=== PATIENT | male | born 1960 | race Caucasian/White ===

== ENCOUNTER → 2017-06-28 14:12 | Outpatient (CLI) | payer OTHER, SELFPAY ==
--- NOTE | 2017-06-28 14:20 | RAD_ITS ---
STUDY: X-RAY - PELVIS REASON FOR EXAM: Male, 57 years old. Psoriatic arthritis. TECHNIQUE: One view of the pelvis was obtained. COMPARISON: None. FINDINGS: There is a non-specific bowel gas pattern. Normal visualized soft tissue structures. Normal bilateral iliac wings, sacroiliac joints and visualized sacrum. Normal visualized bilateral superior and inferior pubic rami. Normal pubic symphysis. Normal ischial tuberosities. Normal visualized right femoral head. Normal right acetabulum. Normal right hip joint. Normal visualized left femoral head. Normal left acetabulum. Normal left hip joint. RAD/Pelvis 1 or 2 Views IMPRESSION: Normal x-ray examination of the pelvis. Electronically Signed: Everett Garnica MD at 10:24 EDT , Service support ,
[2017-06-28 15:48] LABS: Absolute Lymphocyte Count 1.46 X10^3/ul (0.83-4.51); Absolute Neutrophil Count 2.7 X10^3/uL (2.0-7.7); Basophil# 0.01 X10^3/uL; Basophil% 0.2 % (0-1); Eosinophil# 0.06 X10^3/uL; Eosinophils% 1.2 % (0-5); Hematocrit 47.4 % (40-54); Hemoglobin 15.9 g/dl (13.0-16.5); Lymphocyte # 1.46 X10^3/ul (4.0); Lymphocyte % 29.9 % (19-41); Mean Corp Hgb Conc 33.5 g/gl (32-36); Mean Corpuscular Hgb 32.5 pg (27.0-32.0); Mean Corpuscular Volume 96.9 fL (80-94); Mean Platelet Vol. 11.2 fl (6.2-12.0); Monocyte# 0.62 X10^3/uL; Monocyte% 12.7 % (0-10); Neutrophil # 2.73 X10^3/uL (2.7-7.7); Platelet Count 171 K/mm3 (150-450); RBC Distribution Width CV 12.9 % (11.6-14.6); RBC Distribution Width SD 45.5 fl (35.1-43.9); Red Blood Count 4.89 M/mm3 (4.6-6.2); White Blood Count 4.9 K/mm3 (4.4-11.0)
[2017-06-28 15:58] LABS: POSITIVE COUNT NO; POSITIVE DIFFERENTIAL NO; POSITIVE MORPHOLOGY NO
[2017-06-28 16:02] LABS: ALB/GLOB Ratio 1.1 RATIO (0.9-2.4); AST(SGOT) 25 U/L (15-37); Alanine Aminotransfer ALT/SGPT 30 U/L (16-61); Albumin, Serum 4.1 g/dL (3.2-5.0); Alkaline Phosphatase 74 U/L (45-117); Anion Gap 7 (5-15); BUN 23 mg/dL (7-18); CRP 9.05 mg/L (0.0-3.0); Calcium,Total 8.6 mg/dL (8.5-10.1); Chloride 101 mmol/L (98-107); Creatinine, Serum 0.92 mg/dL (0.70-1.30); EST Glomerular Filtration Rate 90 mL/min (>60); Est Glom Filt Rate - Afr Amer 109 mL/min (>60); Globulin 3.7 g/dL (2.2-4.2); Glucose 86 mg/dL (74-106); Potassium 4.5 mmol/L (3.5-5.1); Protein, Total 7.8 g/dL (6.4-8.2); Rheumatoid Factor < 10.0 IU/mL (<15); Sodium Level 135 mmol/L (136-145)
[2017-06-28 16:18] LABS: Erythrocyte Sedimentation Rate 11 mm/hr (0-20)
[2017-06-30 15:01] LABS: ANTINUCLEAR ANTIBODIES DIRECT Negative (Negative)
[2017-07-06 11:29] LABS: CCP IgG Antibodies 9 units (0-19); HEPATITIS B SURFACE AG Negative (Negative); HLA B27 Negative (.); Hep B Surface Antibodies Non Reactive (.); Hep C Antibodies <0.1 s/co ratio (0.0-0.9)
== END ==
PROVIDERS: Family Provider Family Medicine; PCP Family Medicine; Visit Provider Internal Medicine Rheumatology
DX: L40.59 Other psoriatic arthropathy (principal); L40.9 Psoriasis, unspecified; M51.37 Other intervertebral disc degeneration, lumbosacral region; M47.897 Other spondylosis, lumbosacral region
CPT/HCPCS: 36415; 72170; 80053; 81374; 85025; 85652; 86038; 86140; 86200; 86431; 86706; 86803; 87340

== ENCOUNTER → 2017-08-26 07:04 | Outpatient (CLI) | payer OTHER, SELFPAY ==
[2017-08-26 10:30] LABS: Absolute Lymphocyte Count 2.06 X10^3/ul (0.83-4.51); Absolute Neutrophil Count 5.2 X10^3/uL (2.0-7.7); Basophil# 0.02 X10^3/uL; Basophil% 0.2 % (0-1); Eosinophil# 0.17 X10^3/uL; Eosinophils% 2.1 % (0-5); Hematocrit 44.3 % (40-54); Hemoglobin 14.8 g/dl (13.0-16.5); Lymphocyte # 2.06 X10^3/ul (4.0); Lymphocyte % 25.7 % (19-41); Mean Corp Hgb Conc 33.4 g/gl (32-36); Mean Corpuscular Hgb 32.5 pg (27.0-32.0); Mean Corpuscular Volume 97.1 fL (80-94); Mean Platelet Vol. 10.2 fl (6.2-12.0); Monocyte# 0.59 X10^3/uL; Monocyte% 7.4 % (0-10); Neutrophil # 5.17 X10^3/uL (2.7-7.7); Neutrophil % 64.5 % (47-70); Platelet Count 272 K/mm3 (150-450); RBC Distribution Width CV 13.5 % (11.6-14.6); RBC Distribution Width SD 47.3 fl (35.1-43.9); Red Blood Count 4.56 M/mm3 (4.6-6.2)
[2017-08-26 10:54] LABS: POSITIVE COUNT NO; POSITIVE DIFFERENTIAL NO; POSITIVE MORPHOLOGY NO
[2017-08-26 11:06] LABS: ALB/GLOB Ratio 1.1 RATIO (0.9-2.4); AST(SGOT) 16 U/L (15-37); Alanine Aminotransfer ALT/SGPT 26 U/L (16-61); Albumin, Serum 3.8 g/dL (3.2-5.0); Alkaline Phosphatase 67 U/L (45-117); Anion Gap 6 (5-15); BUN 22 mg/dL (7-18); BUN/Creat Ratio 27.4 RATIO (10-20); Calcium,Total 8.4 mg/dL (8.5-10.1); Chloride 108 mmol/L (98-107); EST Glomerular Filtration Rate 105 mL/min (>60); Est Glom Filt Rate - Afr Amer 127 mL/min (>60); Globulin 3.4 g/dL (2.2-4.2); Glucose 81 mg/dL (74-106); Potassium 4.1 mmol/L (3.5-5.1); Protein, Total 7.2 g/dL (6.4-8.2); Sodium Level 141 mmol/L (136-145)
== END ==
PROVIDERS: Family Provider Family Medicine; PCP Family Medicine; Visit Provider Internal Medicine Rheumatology
DX: L40.59 Other psoriatic arthropathy (principal); L40.9 Psoriasis, unspecified; M51.37 Other intervertebral disc degeneration, lumbosacral region; M47.897 Other spondylosis, lumbosacral region; Z79.899 Other long term (current) drug therapy
CPT/HCPCS: 36415; 80053; 85025

== ENCOUNTER → 2017-11-25 06:57 | Outpatient (CLI) | payer OTHER, SELFPAY ==
[2017-11-25 10:39] LABS: Absolute Lymphocyte Count 2.01 X10^3/ul (0.83-4.51); Absolute Neutrophil Count 4.5 X10^3/uL (2.0-7.7); Basophil# 0.02 X10^3/uL; Basophil% 0.3 % (0-1); Eosinophil# 0.17 X10^3/uL; Eosinophils% 2.3 % (0-5); Hematocrit 44.4 % (40-54); Hemoglobin 14.8 g/dl (13.0-16.5); Lymphocyte # 2.01 X10^3/ul (4.0); Lymphocyte % 27.5 % (19-41); Mean Corp Hgb Conc 33.3 g/gl (32-36); Mean Corpuscular Volume 99.1 fL (80-94); Mean Platelet Vol. 10.8 fl (6.2-12.0); Monocyte# 0.57 X10^3/uL; Monocyte% 7.8 % (0-10); Neutrophil # 4.53 X10^3/uL (2.7-7.7); Platelet Count 257 K/mm3 (150-450); RBC Distribution Width CV 13.1 % (11.6-14.6); RBC Distribution Width SD 47.4 fl (35.1-43.9); Red Blood Count 4.48 M/mm3 (4.6-6.2); White Blood Count 7.3 K/mm3 (4.4-11.0)
[2017-11-25 10:47] LABS: POSITIVE COUNT NO; POSITIVE DIFFERENTIAL NO; POSITIVE MORPHOLOGY NO
[2017-11-25 10:58] LABS: ALB/GLOB Ratio 1.1 RATIO (0.9-2.4); AST(SGOT) 14 U/L (15-37); Alanine Aminotransfer ALT/SGPT 23 U/L (16-61); Albumin, Serum 3.7 g/dL (3.2-5.0); Alkaline Phosphatase 65 U/L (45-117); Anion Gap 8 (5-15); BUN 17 mg/dL (7-18); BUN/Creat Ratio 19.9 RATIO (10-20); Calcium,Total 8.3 mg/dL (8.5-10.1); Chloride 107 mmol/L (98-107); Creatinine, Serum 0.85 mg/dL (0.70-1.30); EST Glomerular Filtration Rate 98 mL/min (>60); Est Glom Filt Rate - Afr Amer 119 mL/min (>60); Globulin 3.4 g/dL (2.2-4.2); Glucose 89 mg/dL (74-106); Potassium 4.3 mmol/L (3.5-5.1); Protein, Total 7.1 g/dL (6.4-8.2); Sodium Level 139 mmol/L (136-145)
== END ==
PROVIDERS: Family Provider Family Medicine; PCP Family Medicine; Visit Provider Internal Medicine Rheumatology
DX: L40.59 Other psoriatic arthropathy (principal); Z79.899 Other long term (current) drug therapy; L40.9 Psoriasis, unspecified; M51.37 Other intervertebral disc degeneration, lumbosacral region; M47.897 Other spondylosis, lumbosacral region
CPT/HCPCS: 36415; 80053; 85025

== ENCOUNTER → 2018-02-17 07:14 | Outpatient (CLI) | payer OTHER, SELFPAY ==
[2018-02-17 10:24] LABS: Absolute Lymphocyte Count 1.87 X10^3/ul (0.83-4.51); Absolute Neutrophil Count 4.9 X10^3/uL (2.0-7.7); Basophil# 0.02 X10^3/uL; Basophil% 0.3 % (0-1); Eosinophil# 0.17 X10^3/uL; Eosinophils% 2.2 % (0-5); Hematocrit 45.1 % (40-54); Hemoglobin 15.4 g/dl (13.0-16.5); Lymphocyte # 1.87 X10^3/ul (4.0); Lymphocyte % 24.3 % (19-41); Mean Corp Hgb Conc 34.1 g/gl (32-36); Mean Corpuscular Hgb 34.6 pg (27.0-32.0); Mean Corpuscular Volume 101.3 fL (80-94); Mean Platelet Vol. 10.5 fl (6.2-12.0); Monocyte# 0.71 X10^3/uL; Monocyte% 9.2 % (0-10); Neutrophil % 63.9 % (47-70); Platelet Count 276 K/mm3 (150-450); RBC Distribution Width CV 13.2 % (11.6-14.6); RBC Distribution Width SD 48.1 fl (35.1-43.9); Red Blood Count 4.45 M/mm3 (4.6-6.2); White Blood Count 7.7 K/mm3 (4.4-11.0)
[2018-02-17 10:30] LABS: POSITIVE COUNT NO; POSITIVE DIFFERENTIAL NO; POSITIVE MORPHOLOGY NO
[2018-02-17 10:39] LABS: ALB/GLOB Ratio 1.1 RATIO (0.9-2.4); AST(SGOT) 17 U/L (15-37); Alanine Aminotransfer ALT/SGPT 28 U/L (16-61); Albumin, Serum 3.9 g/dL (3.2-5.0); Alkaline Phosphatase 72 U/L (45-117); Anion Gap 6 (5-15); BUN 16 mg/dL (7-18); BUN/Creat Ratio 19.9 RATIO (10-20); Calcium,Total 8.5 mg/dL (8.5-10.1); Chloride 107 mmol/L (98-107); EST Glomerular Filtration Rate 105 mL/min (>60); Est Glom Filt Rate - Afr Amer 127 mL/min (>60); Globulin 3.5 g/dL (2.2-4.2); Glucose 90 mg/dL (74-106); Potassium 3.9 mmol/L (3.5-5.1); Protein, Total 7.4 g/dL (6.4-8.2); Sodium Level 140 mmol/L (136-145)
== END ==
PROVIDERS: Family Provider Family Medicine; PCP Family Medicine; Referring Provider Internal Medicine Rheumatology; Visit Provider Internal Medicine Rheumatology
DX: L40.59 Other psoriatic arthropathy (principal); L40.9 Psoriasis, unspecified; M51.37 Other intervertebral disc degeneration, lumbosacral region; M47.897 Other spondylosis, lumbosacral region; Z79.899 Other long term (current) drug therapy
CPT/HCPCS: 36415; 80053; 85025

== ENCOUNTER → 2018-02-24 18:44 | Outpatient (CLI) | payer OTHER, SELFPAY ==
[2018-02-24 18:50] LABS: Pathologist Comment May follow
[2018-02-24 20:44] LABS: Synovial Fld Mononuclear WBC % 93.4 %; Synovial Fld Polynuclear WBC # 0.008 10^3/ul; Synovial Fld Polynuclear WBC % 6.6 %
[2018-02-24 21:01] LABS: AUTO B FLUID DILUENT BKGD CT WBC <0.1 RBC <0.01 (W<.1,R<.01)
[2018-02-24 21:02] LABS: Appearance /Synovial Fluid Sl hazy (CLEAR); Color / Synovial Fluid Yellow (Pale Yellow); Source- Body Fluid SYNOVIAL; Viscosity / Synovial Fluid Mod. Viscous (HIGH)
[2018-02-24 22:21] LABS: CRYSTALS, BODY FLUID Other, see comment; RBC /Synovial Fluid 965 /mm3 (0)
[2018-02-24 22:44] LABS: Body Fluid QC Type(s) BF2Q,BF3Q; Lymph 1 %; Monocyte /Synovial Fluid 22 %; Neutrophil 4 % (0-25); Other Cell /Synovial Fluid 73 %
[2018-02-25 00:49] LABS: Synovial Fld Mononuclear WBC # 0.113 10^3/ul
[2018-02-27 12:54] LABS: Pathologist Review Reviewed
== END ==
PROVIDERS: Family Provider Family Medicine; PCP Family Medicine; Referring Provider Internal Medicine Rheumatology; Visit Provider Internal Medicine Rheumatology
DX: L40.59 Other psoriatic arthropathy (principal); L40.9 Psoriasis, unspecified; M51.37 Other intervertebral disc degeneration, lumbosacral region; M47.897 Other spondylosis, lumbosacral region; Z79.899 Other long term (current) drug therapy
CPT/HCPCS: 87070; 87075; 87205; 89050; 89051; 89060

== ENCOUNTER → 2018-05-11 11:34 | Outpatient (CLI) | payer OTHER, SELFPAY ==
[2018-05-11 14:25] LABS: Absolute Lymphocyte Count 2.21 X10^3/ul (0.83-4.51); Absolute Neutrophil Count 3.9 X10^3/uL (2.0-7.7); Basophil# 0.02 X10^3/uL; Basophil% 0.3 % (0-1); Eosinophil# 0.09 X10^3/uL; Eosinophils% 1.3 % (0-5); Hematocrit 45.6 % (40-54); Hemoglobin 15.1 g/dl (13.0-16.5); Lymphocyte # 2.21 X10^3/ul (4.0); Lymphocyte % 31.7 % (19-41); Mean Corp Hgb Conc 33.1 g/gl (32-36); Mean Corpuscular Hgb 33.3 pg (27.0-32.0); Mean Corpuscular Volume 100.4 fL (80-94); Mean Platelet Vol. 10.6 fl (6.2-12.0); Monocyte# 0.71 X10^3/uL; Monocyte% 10.2 % (0-10); Neutrophil # 3.94 X10^3/uL (2.7-7.7); Neutrophil % 56.4 % (47-70); Platelet Count 252 K/mm3 (150-450); RBC Distribution Width CV 13.4 % (11.6-14.6); RBC Distribution Width SD 48.7 fl (35.1-43.9); Red Blood Count 4.54 M/mm3 (4.6-6.2)
[2018-05-11 14:28] LABS: POSITIVE COUNT NO; POSITIVE DIFFERENTIAL NO; POSITIVE MORPHOLOGY NO
[2018-05-11 14:40] LABS: ALB/GLOB Ratio 1.2 RATIO (0.9-2.4); AST(SGOT) 17 U/L (15-37); Alanine Aminotransfer ALT/SGPT 32 U/L (16-61); Albumin, Serum 4.1 g/dL (3.2-5.0); Alkaline Phosphatase 76 U/L (45-117); Anion Gap 9 (5-15); BUN 14 mg/dL (7-18); BUN/Creat Ratio 16.6 RATIO (10-20); Calcium,Total 8.8 mg/dL (8.5-10.1); Chloride 108 mmol/L (98-107); Creatinine, Serum 0.84 mg/dL (0.70-1.30); EST Glomerular Filtration Rate 99 mL/min (>60); Est Glom Filt Rate - Afr Amer 120 mL/min (>60); Globulin 3.4 g/dL (2.2-4.2); Glucose 79 mg/dL (74-106); Protein, Total 7.5 g/dL (6.4-8.2); Sodium Level 141 mmol/L (136-145)
== END ==
PROVIDERS: Family Provider Family Medicine; PCP Family Medicine; Referring Provider Internal Medicine Rheumatology; Visit Provider Internal Medicine Rheumatology
DX: L40.59 Other psoriatic arthropathy (principal); L40.9 Psoriasis, unspecified; M51.37 Other intervertebral disc degeneration, lumbosacral region; M47.897 Other spondylosis, lumbosacral region; Z79.899 Other long term (current) drug therapy
CPT/HCPCS: 36415; 80053; 85025

== ENCOUNTER → 2018-08-11 14:14 | Outpatient (CLI) | payer OTHER, SELFPAY ==
[2018-08-11 16:03] LABS: Absolute Lymphocyte Count 2.44 X10^3/ul (0.83-4.51); Absolute Neutrophil Count 4.5 X10^3/uL (2.0-7.7); Basophil# 0.02 X10^3/uL; Basophil% 0.2 % (0-1); Eosinophil# 0.21 X10^3/uL; Eosinophils% 2.6 % (0-5); Hematocrit 42.4 % (40-54); Hemoglobin 14.4 g/dl (13.0-16.5); Lymphocyte # 2.44 X10^3/ul (4.0); Lymphocyte % 29.7 % (19-41); Mean Corpuscular Hgb 33.3 pg (27.0-32.0); Mean Corpuscular Volume 98.1 fL (80-94); Mean Platelet Vol. 10.4 fl (6.2-12.0); Monocyte# 0.99 X10^3/uL; Neutrophil # 4.54 X10^3/uL (2.7-7.7); Neutrophil % 55.3 % (47-70); Platelet Count 264 K/mm3 (150-450); RBC Distribution Width CV 13.3 % (11.6-14.6); RBC Distribution Width SD 47.5 fl (35.1-43.9); Red Blood Count 4.32 M/mm3 (4.6-6.2); White Blood Count 8.2 K/mm3 (4.4-11.0)
[2018-08-11 16:08] LABS: POSITIVE COUNT NO; POSITIVE DIFFERENTIAL NO; POSITIVE MORPHOLOGY NO
[2018-08-11 16:25] LABS: ALB/GLOB Ratio 1.3 RATIO (0.9-2.4); AST(SGOT) 15 U/L (15-37); Alanine Aminotransfer ALT/SGPT 21 U/L (16-61); Albumin, Serum 3.9 g/dL (3.2-5.0); Alkaline Phosphatase 71 U/L (45-117); Anion Gap 5 (5-15); BUN 17 mg/dL (7-18); BUN/Creat Ratio 20.2 RATIO (10-20); Calcium,Total 8.5 mg/dL (8.5-10.1); Chloride 108 mmol/L (98-107); Creatinine, Serum 0.84 mg/dL (0.70-1.30); EST Glomerular Filtration Rate 99 mL/min (>60); Est Glom Filt Rate - Afr Amer 120 mL/min (>60); Glucose 78 mg/dL (74-106); Potassium 3.7 mmol/L (3.5-5.1); Protein, Total 6.9 g/dL (6.4-8.2); Sodium Level 137 mmol/L (136-145)
== END ==
PROVIDERS: Family Provider Family Medicine; PCP Family Medicine; Referring Provider Internal Medicine Rheumatology; Visit Provider Internal Medicine Rheumatology
DX: L40.59 Other psoriatic arthropathy (principal); L40.9 Psoriasis, unspecified; M25.561 Pain in right knee; M51.37 Other intervertebral disc degeneration, lumbosacral region; M47.897 Other spondylosis, lumbosacral region; Z79.899 Other long term (current) drug therapy
CPT/HCPCS: 36415; 80053; 85025

== ENCOUNTER → 2018-11-10 07:01 | Outpatient (CLI) | payer OTHER, SELFPAY ==
[2018-11-10 10:04] LABS: Absolute Lymphocyte Count 1.98 X10^3/uL (0.83-4.51); Absolute Neutrophil Count 5.9 X10^3/uL (2.0-7.7); Basophil# 0.04 X10^3/uL; Basophil% 0.4 % (0-1); Eosinophil# 0.24 X10^3/uL; Eosinophils% 2.7 % (0-5); Hematocrit 44.6 % (40-54); Hemoglobin 14.8 g/dL (13.0-16.5); Lymphocyte # 1.98 X10^3/ul (4.0); Lymphocyte % 22.2 % (19-41); Mean Corp Hgb Conc 33.2 g/dL (32-36); Mean Corpuscular Volume 99.3 fL (80-94); Mean Platelet Vol. 10.3 fl (6.2-12.0); Monocyte% 7.8 % (0-10); NRBC Flagged by Analyzer 0 % (0-5); Neutrophil # 5.94 X10^3/uL (2.7-7.7); Neutrophil % 66.6 % (47-70); Platelet Count 260 K/mm3 (150-450); RBC Distribution Width CV 12.9 % (11.6-14.6); RBC Distribution Width SD 47.2 fl (35.1-43.9); Red Blood Count 4.49 M/mm3 (4.6-6.2); White Blood Count 8.9 K/mm3 (4.4-11.0)
[2018-11-10 10:22] LABS: Albumin, Serum 3.5 g/dL (3.2-5.0); BUN 19 mg/dL (7-18); BUN/Creat Ratio 22.1 RATIO (10-20); Creatinine, Serum 0.86 mg/dL (0.70-1.30); EST Glomerular Filtration Rate 97 mL/min (>60); Est Glom Filt Rate - Afr Amer 117 mL/min (>60); Glucose 95 mg/dL (74-106); Protein, Total 6.8 g/dL (6.4-8.2)
[2018-11-10 10:23] LABS: ALB/GLOB Ratio 1.1 RATIO (0.9-2.4); AST(SGOT) 13 U/L (15-37); Alanine Aminotransfer ALT/SGPT 21 U/L (16-61); Alkaline Phosphatase 75 U/L (45-117); Anion Gap 6 (5-15); Calcium,Total 8.4 mg/dL (8.5-10.1); Chloride 107 mmol/L (98-107); Globulin 3.3 g/dL (2.2-4.2); Potassium 4.2 mmol/L (3.5-5.1); Sodium Level 139 mmol/L (136-145)
== END ==
PROVIDERS: Family Provider Family Medicine; PCP Family Medicine; Referring Provider Internal Medicine Rheumatology; Visit Provider Internal Medicine Rheumatology
DX: L40.59 Other psoriatic arthropathy (principal); L40.9 Psoriasis, unspecified; M51.37 Other intervertebral disc degeneration, lumbosacral region; M47.897 Other spondylosis, lumbosacral region; Z79.899 Other long term (current) drug therapy
CPT/HCPCS: 36415; 80053; 85025

== ENCOUNTER → 2019-02-06 07:01 | Outpatient (CLI) | payer OTHER, SELFPAY ==
[2019-02-06 10:09] LABS: Absolute Lymphocyte Count 1.89 X10^3/uL (0.83-4.51); Absolute Neutrophil Count 4.9 X10^3/uL (2.0-7.7); Basophil# 0.03 X10^3/uL; Basophil% 0.4 % (0-1); Eosinophil# 0.15 X10^3/uL; Hematocrit 44.4 % (40-54); Hemoglobin 14.9 g/dL (13.0-16.5); Lymphocyte # 1.89 X10^3/ul (4.0); Lymphocyte % 24.7 % (19-41); Mean Corp Hgb Conc 33.6 g/dL (32-36); Mean Corpuscular Hgb 32.9 pg (27.0-32.0); Mean Platelet Vol. 9.8 fl (6.2-12.0); Monocyte# 0.64 X10^3/uL; Monocyte% 8.4 % (0-10); NRBC Flagged by Analyzer 0 % (0-5); Neutrophil # 4.92 X10^3/uL (2.7-7.7); Neutrophil % 64.4 % (47-70); Platelet Count 274 K/mm3 (150-450); RBC Distribution Width CV 13.1 % (11.6-14.6); RBC Distribution Width SD 46.4 fl (35.1-43.9); Red Blood Count 4.53 M/mm3 (4.6-6.2); White Blood Count 7.6 K/mm3 (4.4-11.0)
[2019-02-06 10:24] LABS: ALB/GLOB Ratio 1.1 RATIO (0.9-2.4); AST(SGOT) 15 U/L (15-37); Alanine Aminotransfer ALT/SGPT 23 U/L (16-61); Albumin, Serum 3.8 g/dL (3.2-5.0); Alkaline Phosphatase 70 U/L (45-117); Anion Gap 6 (5-15); BUN 18 mg/dL (7-18); BUN/Creat Ratio 17.8 RATIO (10-20); Calcium,Total 8.4 mg/dL (8.5-10.1); Chloride 106 mmol/L (98-107); Creatinine, Serum 1.01 mg/dL (0.70-1.30); EST Glomerular Filtration Rate 80 mL/min (>60); Est Glom Filt Rate - Afr Amer 97 mL/min (>60); Globulin 3.4 g/dL (2.2-4.2); Glucose 105 mg/dL (74-106); Potassium 4.1 mmol/L (3.5-5.1); Protein, Total 7.2 g/dL (6.4-8.2); Sodium Level 137 mmol/L (136-145)
== END ==
PROVIDERS: Family Provider Family Medicine; PCP Family Medicine; Referring Provider Internal Medicine Rheumatology; Visit Provider Internal Medicine Rheumatology
DX: L40.59 Other psoriatic arthropathy (principal); L40.9 Psoriasis, unspecified; M51.37 Other intervertebral disc degeneration, lumbosacral region; M47.897 Other spondylosis, lumbosacral region; Z79.899 Other long term (current) drug therapy
CPT/HCPCS: 36415; 80053; 85025

== ENCOUNTER → 2019-03-09 10:10 | Outpatient (CLI) | payer OTHER, SELFPAY ==
--- NOTE | 2019-03-09 10:12 | RAD_ITS ---
STUDY: X-RAY CHEST REASON FOR EXAM: Male, 58 years old. TECHNIQUE: 2 views COMPARISON: None. FINDINGS: The lungs are clear and expanded. There is no demonstrated pleural abnormality. Normal size heart. Normal mediastinum and michelle. Normal visualized pulmonary arteries. Normal visualized aortic arch and descending thoracic aorta. Normal visualized thoracic spine. Normal visualized ribs, clavicles, and shoulders. There is no demonstrated abnormality of the visualized soft tissue structures of the upper abdomen. RAD/Chest PA and Lateral IMPRESSION: Normal x-ray examination of the chest. Electronically Signed: Sebastian Reardon, at 11:10 EST Tel , Service support ,
== END ==
PROVIDERS: Family Provider Family Medicine; PCP Family Medicine; Referring Provider Family Medicine; Visit Provider Family Medicine
DX: J22 Unspecified acute lower respiratory infection (principal)
CPT/HCPCS: 71046

== ENCOUNTER → 2019-05-04 07:08 | Outpatient (CLI) | payer OTHER, SELFPAY ==
[2019-05-04 10:20] LABS: Absolute Lymphocyte Count 1.67 X10^3/uL (0.83-4.51); Absolute Neutrophil Count 5.2 X10^3/uL (2.0-7.7); Basophil# 0.03 X10^3/uL; Basophil% 0.4 % (0-1); Eosinophil# 0.12 X10^3/uL; Eosinophils% 1.5 % (0-5); Hematocrit 43.6 % (40-54); Hemoglobin 14.1 g/dL (13.0-16.5); Lymphocyte # 1.67 X10^3/ul (4.0); Lymphocyte % 21.5 % (19-41); Mean Corp Hgb Conc 32.3 g/dL (32-36); Mean Corpuscular Hgb 31.9 pg (27.0-32.0); Mean Corpuscular Volume 98.6 fL (80-94); Mean Platelet Vol. 10.3 fl (6.2-12.0); Monocyte# 0.71 X10^3/uL; Monocyte% 9.1 % (0-10); NRBC Flagged by Analyzer 0 % (0-5); Neutrophil # 5.22 X10^3/uL (2.7-7.7); Neutrophil % 67.2 % (47-70); Platelet Count 253 K/mm3 (150-450); RBC Distribution Width CV 13.2 % (11.6-14.6); RBC Distribution Width SD 47.3 fl (35.1-43.9); Red Blood Count 4.42 M/mm3 (4.6-6.2); White Blood Count 7.8 K/mm3 (4.4-11.0)
[2019-05-04 10:39] LABS: ALB/GLOB Ratio 1.1 RATIO (0.9-2.4); AST(SGOT) 15 U/L (15-37); Alanine Aminotransfer ALT/SGPT 23 U/L (16-61); Albumin, Serum 3.6 g/dL (3.2-5.0); Alkaline Phosphatase 63 U/L (45-117); Anion Gap 4 (5-15); BUN 17 mg/dL (7-18); Calcium,Total 8.6 mg/dL (8.5-10.1); Chloride 109 mmol/L (98-107); EST Glomerular Filtration Rate 92 mL/min (>60); Est Glom Filt Rate - Afr Amer 112 mL/min (>60); Globulin 3.4 g/dL (2.2-4.2); Glucose 97 mg/dL (74-106); Potassium 4.1 mmol/L (3.5-5.1); Sodium Level 139 mmol/L (136-145)
== END ==
PROVIDERS: PCP Family Medicine; Referring Provider Internal Medicine Rheumatology; Visit Provider Internal Medicine Rheumatology
DX: L40.59 Other psoriatic arthropathy (principal); L40.9 Psoriasis, unspecified; M51.37 Other intervertebral disc degeneration, lumbosacral region; M47.897 Other spondylosis, lumbosacral region; Z79.899 Other long term (current) drug therapy
CPT/HCPCS: 36415; 80053; 85025

== ENCOUNTER → 2019-08-03 07:05 | Outpatient (CLI) | payer OTHER, SELFPAY ==
[2019-08-03 09:55] LABS: Absolute Lymphocyte Count 2.15 X10^3/uL (0.83-4.51); Absolute Neutrophil Count 6.3 X10^3/uL (2.0-7.7); Basophil# 0.04 X10^3/uL; Basophil% 0.4 % (0-1); Eosinophil# 0.13 X10^3/uL; Eosinophils% 1.4 % (0-5); Hematocrit 48.2 % (40-54); Hemoglobin 15.7 g/dL (13.0-16.5); Lymphocyte # 2.15 X10^3/ul (4.0); Lymphocyte % 22.8 % (19-41); Mean Corp Hgb Conc 32.6 g/dL (32-36); Mean Corpuscular Hgb 32.6 pg (27.0-32.0); Mean Platelet Vol. 10.2 fl (6.2-12.0); Monocyte# 0.76 X10^3/uL; Monocyte% 8.1 % (0-10); NRBC Flagged by Analyzer 0 % (0-5); Neutrophil # 6.33 X10^3/uL (2.7-7.7); Platelet Count 249 K/mm3 (150-450); RBC Distribution Width CV 13.1 % (11.6-14.6); RBC Distribution Width SD 48.3 fl (35.1-43.9); Red Blood Count 4.82 M/mm3 (4.6-6.2); White Blood Count 9.4 K/mm3 (4.4-11.0)
[2019-08-03 10:30] LABS: AST(SGOT) 16 U/L (15-37); Alanine Aminotransfer ALT/SGPT 29 U/L (16-61); Albumin, Serum 3.8 g/dL (3.2-5.0); Alkaline Phosphatase 78 U/L (45-117); Anion Gap 7 (5-15); BUN 15 mg/dL (7-18); BUN/Creat Ratio 15.6 RATIO (10-20); Calcium,Total 8.9 mg/dL (8.5-10.1); Chloride 105 mmol/L (98-107); Creatinine, Serum 0.96 mg/dL (0.70-1.30); EST Glomerular Filtration Rate 85 mL/min (>60); Est Glom Filt Rate - Afr Amer 103 mL/min (>60); Globulin 3.8 g/dL (2.2-4.2); Glucose 88 mg/dL (74-106); Potassium 4.2 mmol/L (3.5-5.1); Protein, Total 7.6 g/dL (6.4-8.2); Sodium Level 136 mmol/L (136-145)
== END ==
PROVIDERS: PCP Family Medicine; Referring Provider Internal Medicine Rheumatology; Visit Provider Internal Medicine Rheumatology
DX: L40.59 Other psoriatic arthropathy (principal); L40.9 Psoriasis, unspecified; M51.37 Other intervertebral disc degeneration, lumbosacral region; M47.897 Other spondylosis, lumbosacral region; Z79.899 Other long term (current) drug therapy
CPT/HCPCS: 36415; 80053; 85025

== ENCOUNTER → 2019-10-31 12:42 | Outpatient (CLI) | payer OTHER, SELFPAY ==
[2019-10-31 15:03] LABS: Absolute Lymphocyte Count 2.32 X10^3/uL (0.83-4.51); Absolute Neutrophil Count 4.9 X10^3/uL (2.0-7.7); Basophil# 0.05 X10^3/uL; Basophil% 0.6 % (0-1); Eosinophil# 0.19 X10^3/uL; Eosinophils% 2.3 % (0-5); Hematocrit 44.6 % (40-54); Hemoglobin 14.5 g/dL (13.0-16.5); Lymphocyte # 2.32 X10^3/ul (4.0); Lymphocyte % 28.2 % (19-41); Mean Corp Hgb Conc 32.5 g/dL (32-36); Mean Corpuscular Hgb 33.4 pg (27.0-32.0); Mean Corpuscular Volume 102.8 fL (80-94); Mean Platelet Vol. 9.8 fl (6.2-12.0); Monocyte# 0.76 X10^3/uL; Monocyte% 9.2 % (0-10); NRBC Flagged by Analyzer 0 % (0-5); Neutrophil # 4.88 X10^3/uL (2.7-7.7); Neutrophil % 59.5 % (47-70); Platelet Count 430 K/mm3 (150-450); RBC Distribution Width CV 12.7 % (11.6-14.6); RBC Distribution Width SD 48.3 fl (35.1-43.9); Red Blood Count 4.34 M/mm3 (4.6-6.2); White Blood Count 8.2 K/mm3 (4.4-11.0)
[2019-10-31 15:23] LABS: ALB/GLOB Ratio 0.9 RATIO (0.9-2.4); AST(SGOT) 15 U/L (15-37); Alanine Aminotransfer ALT/SGPT 23 U/L (16-61); Albumin, Serum 3.5 g/dL (3.2-5.0); Alkaline Phosphatase 68 U/L (45-117); Anion Gap 2 (5-15); BUN 17 mg/dL (7-18); BUN/Creat Ratio 17.9 RATIO (10-20); Calcium,Total 8.7 mg/dL (8.5-10.1); Chloride 110 mmol/L (98-107); Creatinine, Serum 0.95 mg/dL (0.70-1.30); EST Glomerular Filtration Rate 86 mL/min (>60); Est Glom Filt Rate - Afr Amer 104 mL/min (>60); Globulin 3.7 g/dL (2.2-4.2); Glucose 91 mg/dL (74-106); Protein, Total 7.2 g/dL (6.4-8.2); Sodium Level 140 mmol/L (136-145)
== END ==
PROVIDERS: PCP Family Medicine; Referring Provider Internal Medicine Rheumatology; Visit Provider Internal Medicine Rheumatology
DX: L40.59 Other psoriatic arthropathy (principal); L40.9 Psoriasis, unspecified; M51.37 Other intervertebral disc degeneration, lumbosacral region; M47.897 Other spondylosis, lumbosacral region; Z79.899 Other long term (current) drug therapy
CPT/HCPCS: 36415; 80053; 85025

== ENCOUNTER → 2019-11-07 14:08 | Outpatient (CLI) | payer OTHER, SELFPAY ==
--- NOTE | 2019-11-07 14:13 | RAD_ITS ---
STUDY: X-RAY CHEST REASON FOR EXAM: Male, 59 years old. Hx of psoriatic arthritis. 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 TECHNIQUE: PA and lateral views of the chest. COMPARISON: Previous study of 03/09/2019 FINDINGS: The lungs are clear and expanded. There is no demonstrated pleural abnormality. Normal size heart. Normal mediastinum and michelle. Normal visualized pulmonary arteries. There are calcified plaques of the aortic arch. Normal visualized thoracic spine. Normal visualized ribs, clavicles, and shoulders. There is no demonstrated abnormality of the visualized soft tissue structures of the upper abdomen. RAD/Chest PA and Lateral IMPRESSION: Calcified plaques of the aortic arch. No acute cardiopulmonary disease process is seen. Chest findings are stable in the interval. Electronically Signed: Brady Peterson MD at 17:16 EDT , Service support ,
[2019-11-10 03:06] LABS: QNTFERON TB Mitogen Value > 10.00 IU/mL (.); QNTFERON TB Nil Value 0.02 IU/mL (.); QNTFERON TB1+ Ag Value 0.02 IU/mL (.); QNTFERON TB2+ Ag Value 0.02 IU/mL (.)
[2019-11-10 07:40] LABS: QNTIFERON TB Positive Criteria Negative (Negative)
== END ==
PROVIDERS: PCP Family Medicine; Referring Provider Internal Medicine Rheumatology; Visit Provider Internal Medicine Rheumatology
DX: L40.59 Other psoriatic arthropathy (principal); L40.9 Psoriasis, unspecified; M51.37 Other intervertebral disc degeneration, lumbosacral region; M47.897 Other spondylosis, lumbosacral region; Z79.899 Other long term (current) drug therapy
CPT/HCPCS: 36415; 71046; 86480

== ENCOUNTER → 2020-01-18 07:27 | Outpatient (CLI) | payer OTHER, SELFPAY ==
[2020-01-18 10:59] LABS: Absolute Lymphocyte Count 2.72 X10^3/uL (0.83-4.51); Absolute Neutrophil Count 4.7 X10^3/uL (2.0-7.7); Basophil# 0.03 X10^3/uL; Basophil% 0.4 % (0-1); Eosinophil# 0.18 X10^3/uL; Eosinophils% 2.1 % (0-5); Hematocrit 47.6 % (40-54); Hemoglobin 15.5 g/dL (13.0-16.5); Lymphocyte # 2.72 X10^3/ul (4.0); Lymphocyte % 31.9 % (19-41); Mean Corp Hgb Conc 32.6 g/dL (32-36); Mean Corpuscular Hgb 33.4 pg (27.0-32.0); Mean Corpuscular Volume 102.6 fL (80-94); Mean Platelet Vol. 10.4 fl (6.2-12.0); Monocyte# 0.91 X10^3/uL; Monocyte% 10.7 % (0-10); NRBC Flagged by Analyzer 0 % (0-5); Neutrophil # 4.66 X10^3/uL (2.7-7.7); Neutrophil % 54.5 % (47-70); Platelet Count 292 K/mm3 (150-450); RBC Distribution Width CV 13.8 % (11.6-14.6); RBC Distribution Width SD 52.2 fl (35.1-43.9); Red Blood Count 4.64 M/mm3 (4.6-6.2); White Blood Count 8.5 K/mm3 (4.4-11.0)
[2020-01-18 11:03] LABS: ALB/GLOB Ratio 1.1 RATIO (0.9-2.4); AST(SGOT) 14 U/L (15-37); Alanine Aminotransfer ALT/SGPT 23 U/L (16-61); Albumin, Serum 3.7 g/dL (3.2-5.0); Alkaline Phosphatase 66 U/L (45-117); Anion Gap 4 (5-15); BUN 14 mg/dL (7-18); BUN/Creat Ratio 15.5 RATIO (10-20); Calcium,Total 8.6 mg/dL (8.5-10.1); Chloride 108 mmol/L (98-107); Creatinine, Serum 0.91 mg/dL (0.70-1.30); EST Glomerular Filtration Rate 91 mL/min (>60); Est Glom Filt Rate - Afr Amer 110 mL/min (>60); Globulin 3.5 g/dL (2.2-4.2); Glucose 117 mg/dL (74-106); Potassium 4.2 mmol/L (3.5-5.1); Protein, Total 7.2 g/dL (6.4-8.2); Sodium Level 139 mmol/L (136-145)
== END ==
PROVIDERS: PCP Family Medicine; Referring Provider Internal Medicine Rheumatology; Visit Provider Internal Medicine Rheumatology
DX: L40.59 Other psoriatic arthropathy (principal); L40.9 Psoriasis, unspecified; M51.37 Other intervertebral disc degeneration, lumbosacral region; M47.897 Other spondylosis, lumbosacral region; Z79.899 Other long term (current) drug therapy
CPT/HCPCS: 36415; 80053; 85025

== ENCOUNTER → 2020-04-18 07:04 | Outpatient (CLI) | payer OTHER, SELFPAY ==
[2020-04-18 10:05] LABS: Absolute Lymphocyte Count 2.58 X10^3/uL (0.83-4.51); Absolute Neutrophil Count 4.8 X10^3/uL (2.0-7.7); Basophil# 0.05 X10^3/uL; Basophil% 0.6 % (0-1); Eosinophil# 0.21 X10^3/uL; Eosinophils% 2.4 % (0-5); Hematocrit 47.2 % (40-54); Hemoglobin 15.9 g/dL (13.0-16.5); Lymphocyte # 2.58 X10^3/ul (4.0); Lymphocyte % 29.8 % (19-41); Mean Corp Hgb Conc 33.7 g/dL (32-36); Mean Corpuscular Hgb 33.8 pg (27.0-32.0); Mean Corpuscular Volume 100.4 fL (80-94); Mean Platelet Vol. 10.4 fl (6.2-12.0); Monocyte# 0.95 X10^3/uL; NRBC Flagged by Analyzer 0 % (0-5); Neutrophil # 4.83 X10^3/uL (2.7-7.7); Neutrophil % 55.9 % (47-70); Platelet Count 339 K/mm3 (150-450); RBC Distribution Width SD 48.2 fl (35.1-43.9); White Blood Count 8.7 K/mm3 (4.4-11.0)
[2020-04-18 10:25] LABS: ALB/GLOB Ratio 1.1 RATIO (0.9-2.4); AST(SGOT) 15 U/L (15-37); Alanine Aminotransfer ALT/SGPT 24 U/L (16-61); Albumin, Serum 3.9 g/dL (3.2-5.0); Alkaline Phosphatase 75 U/L (45-117); Anion Gap 5 (5-15); BUN 14 mg/dL (7-18); Calcium,Total 8.6 mg/dL (8.5-10.1); Chloride 106 mmol/L (98-107); Creatinine, Serum 0.93 mg/dL (0.70-1.30); EST Glomerular Filtration Rate 88 mL/min (>60); Est Glom Filt Rate - Afr Amer 106 mL/min (>60); Globulin 3.4 g/dL (2.2-4.2); Glucose 92 mg/dL (74-106); Potassium 4.3 mmol/L (3.5-5.1); Protein, Total 7.3 g/dL (6.4-8.2); Sodium Level 137 mmol/L (136-145)
== END ==
PROVIDERS: PCP Family Medicine; Referring Provider Internal Medicine Rheumatology; Visit Provider Internal Medicine Rheumatology
DX: L40.59 Other psoriatic arthropathy (principal); L40.9 Psoriasis, unspecified; M51.37 Other intervertebral disc degeneration, lumbosacral region; M47.897 Other spondylosis, lumbosacral region; Z79.899 Other long term (current) drug therapy
CPT/HCPCS: 36415; 80053; 85025

== ENCOUNTER → 2020-07-11 07:01 | Outpatient (CLI) | payer OTHER, SELFPAY ==
[2020-07-11 10:11] LABS: Absolute Neutrophil Count 4.8 X10^3/uL (2.0-7.7); Basophil# 0.03 X10^3/uL; Basophil% 0.4 % (0-1); Eosinophils% 2.4 % (0-5); Hematocrit 47.7 % (40-54); Hemoglobin 15.6 g/dL (13.0-16.5); Lymphocyte % 29.7 % (19-41); Mean Corp Hgb Conc 32.7 g/dL (32-36); Mean Corpuscular Hgb 32.7 pg (27.0-32.0); Mean Platelet Vol. 10.5 fl (6.2-12.0); Monocyte# 0.85 X10^3/uL; Monocyte% 10.1 % (0-10); NRBC Flagged by Analyzer 0 % (0-5); Neutrophil # 4.83 X10^3/uL (2.7-7.7); Neutrophil % 57.2 % (47-70); Platelet Count 314 K/mm3 (150-450); RBC Distribution Width SD 45.1 fl (35.1-43.9); Red Blood Count 4.77 M/mm3 (4.6-6.2); White Blood Count 8.4 K/mm3 (4.4-11.0)
[2020-07-11 10:47] LABS: AST(SGOT) 17 U/L (15-37); Alanine Aminotransfer ALT/SGPT 23 U/L (16-61); Albumin, Serum 3.7 g/dL (3.2-5.0); Alkaline Phosphatase 74 U/L (45-117); Anion Gap 7 (5-15); BUN 13 mg/dL (7-18); BUN/Creat Ratio 15.5 RATIO (10-20); Calcium,Total 8.9 mg/dL (8.5-10.1); Chloride 105 mmol/L (98-107); Creatinine, Serum 0.84 mg/dL (0.70-1.30); EST Glomerular Filtration Rate 99 mL/min (>60); Est Glom Filt Rate - Afr Amer 120 mL/min (>60); Globulin 3.7 g/dL (2.2-4.2); Glucose 85 mg/dL (74-106); Potassium 4.1 mmol/L (3.5-5.1); Protein, Total 7.4 g/dL (6.4-8.2); Sodium Level 138 mmol/L (136-145)
== END ==
PROVIDERS: PCP Family Medicine; Referring Provider Internal Medicine Rheumatology; Visit Provider Internal Medicine Rheumatology
DX: L40.59 Other psoriatic arthropathy (principal); L40.9 Psoriasis, unspecified; M51.37 Other intervertebral disc degeneration, lumbosacral region; M47.897 Other spondylosis, lumbosacral region; Z79.899 Other long term (current) drug therapy
CPT/HCPCS: 36415; 80053; 85025

== ENCOUNTER → 2020-07-23 15:03 | Outpatient (CLI) | payer OTHER, SELFPAY ==
--- NOTE | 2020-07-23 15:05 | RAD_ITS ---
STUDY: X-RAY - RIGHT HAND REASON FOR EXAM: Male, 60 years old. HAND PAIN TECHNIQUE: 3 view(s) of the hand. COMPARISON: None. FINDINGS: Normal radiocarpal articulation. Normal distal radioulnar joint. Normal visualized carpal bones. Normal carpal articulations Normal carpometacarpal articulation of the thumb. Normal second through fifth carpometacarpal joints. Normal metacarpi. Normal metacarpophalangeal joint of the thumb. Normal interphalangeal joint of the thumb. Normal proximal and distal phalanges of the thumb. Mild arthrosis of the third metacarpal phalangeal joint. Normal proximal and distal interphalangeal joints of the second through fifth fingers. Normal phalanges of the second through fifth fingers. The soft tissue structures are unremarkable. RAD/Hand Min 3 Views IMPRESSION: No acute fracture or dislocation. Mild arthrosis of the third metacarpophalangeal joint. Electronically Signed: Marc Donovan MD at 8:15 EDT Tel , Service support ,
== END ==
PROVIDERS: PCP Family Medicine; Referring Provider Family Medicine; Visit Provider Family Medicine
DX: M79.641 Pain in right hand (principal)
CPT/HCPCS: 73130

== ENCOUNTER → 2020-07-29 16:09 | Outpatient (CLI) | payer OTHER, SELFPAY ==
--- NOTE | 2020-07-29 16:11 | US_ITS ---
STUDY: SCROTUM ULTRASOUND REASON FOR EXAM: Male, 60 years old. TESTICULAR MASS TECHNIQUE: Ultrasound evaluation of the scrotum was performed with color Doppler and static estevez-scale imaging. COMPARISON: None. FINDINGS: RIGHT TESTICLE INTRATESTICULAR: There is a normal size of the right testicle. The right testicle measures 4.4 x 2.9 x 2.3 cm. There is a homogenous echotexture. There is normal arterial and normal venous vascularity. There is no demonstrated right testicular mass or cyst. EXTRATESTICULAR: The epididymis is normal in size. The epididymis head measures 1.3 cm. There is normal vascularity of the epididymis. There is a well-defined cystic structure within the epididymis, without internal echoes, consistent with an epididymal cyst. There is no demonstrated hydrocele. There is no demonstrated varicocele. There is no demonstrated extratesticular mass or cyst. LEFT TESTICLE INTRATESTICULAR: There is a normal size of the left testicle. The left testicle measures 4.2 x 3.3 x 2.4 cm. There is a homogenous echotexture. There is normal arterial and normal venous vascularity. There is no demonstrated left testicular mass or cyst. EXTRATESTICULAR: The epididymis is enlarged. The epididymis head measures 4.6 x 4.3 x 2.5 cm. There is normal vascularity of the epididymis. There is a cystic structure within the epididymis, with low level echoes, consistent with a spermatocele. Measuring 4.5 x 3.9 x 2.3 cm. There is no demonstrated hydrocele. There is no demonstrated varicocele. There is no demonstrated extratesticular mass or cyst. US/Testicular with Arterial Flow IMPRESSION: Enlarged left epididymis with left spermatocele. Otherwise, unremarkable exam Electronically Signed: Du Scherer DO at 6:15 EDT Tel , Service support ,
== END ==
PROVIDERS: PCP Family Medicine; Referring Provider Family Medicine; Visit Provider Family Medicine
DX: N50.89 Other specified disorders of the male genital organs (principal)
CPT/HCPCS: 76870; 93976

== ENCOUNTER → 2020-10-10 07:09 | Outpatient (CLI) | payer OTHER, SELFPAY ==
[2020-10-10 10:11] LABS: Absolute Lymphocyte Count 2.65 X10^3/uL (0.83-4.51); Absolute Neutrophil Count 5.5 X10^3/uL (2.0-7.7); Basophil# 0.05 X10^3/uL; Basophil% 0.5 % (0-1); Eosinophil# 0.24 X10^3/uL; Eosinophils% 2.6 % (0-5); Hematocrit 46.6 % (40-54); Hemoglobin 15.2 g/dL (13.0-16.5); Lymphocyte # 2.65 X10^3/ul (0.83-4.51); Lymphocyte % 28.3 % (19-41); Mean Corp Hgb Conc 32.6 g/dL (32-36); Mean Corpuscular Hgb 31.9 pg (27.0-32.0); Mean Corpuscular Volume 97.9 fL (80-94); Mean Platelet Vol. 10.7 fl (6.2-12.0); Monocyte% 9.6 % (0-10); NRBC Flagged by Analyzer 0 % (0-5); Neutrophil % 58.7 % (47-70); Platelet Count 295 K/mm3 (150-450); RBC Distribution Width CV 12.8 % (11.6-14.6); Red Blood Count 4.76 M/mm3 (4.6-6.2); White Blood Count 9.4 K/mm3 (4.4-11.0)
[2020-10-10 10:51] LABS: AST(SGOT) 19 U/L (15-37); Alanine Aminotransfer ALT/SGPT 22 U/L (16-61); Albumin, Serum 3.6 g/dL (3.2-5.0); Alkaline Phosphatase 75 U/L (45-117); Anion Gap 7 (5-15); BUN 16 mg/dL (7-18); BUN/Creat Ratio 18.1 RATIO (10-20); Calcium,Total 8.5 mg/dL (8.5-10.1); Chloride 107 mmol/L (98-107); Creatinine, Serum 0.88 mg/dL (0.70-1.30); EST Glomerular Filtration Rate 93 mL/min (>60); Est Glom Filt Rate - Afr Amer 113 mL/min (>60); Globulin 3.6 g/dL (2.2-4.2); Glucose 93 mg/dL (74-106); Potassium 4.3 mmol/L (3.5-5.1); Protein, Total 7.2 g/dL (6.4-8.2); Sodium Level 139 mmol/L (136-145)
== END ==
PROVIDERS: PCP Family Medicine; Referring Provider Internal Medicine Rheumatology; Visit Provider Internal Medicine Rheumatology
DX: L40.59 Other psoriatic arthropathy (principal); L40.9 Psoriasis, unspecified; M51.37 Other intervertebral disc degeneration, lumbosacral region; M47.897 Other spondylosis, lumbosacral region; Z79.899 Other long term (current) drug therapy
CPT/HCPCS: 36415; 80053; 85025

== ENCOUNTER 2020-11-15 06:29 | Inpatient (IN) | payer OTHER, SELFPAY ==
[2020-11-15] VITALS (31 sets, daily range): BP systolic 137–200; BP diastolic 65–111; PULSE 54–79; RESP 14–26; TEMP 36.6–37.1; O2SAT 95–100; BMI 24.4; BMI 24.3
--- NOTE | 2020-11-15 06:35 | NURSING ---
NO OLD EKGS
--- NOTE | 2020-11-15 06:38 | EKG12_ITS ---
Test Reason : CP Blood Pressure : / mmHG Vent. Rate : 061 BPM Atrial Rate : 061 BPM P-R Int : 150 ms QRS Dur : 094 ms QT Int : 402 ms P-R-T Axes : 073 060 123 degrees QTc Int : 404 ms Normal sinus rhythm Left ventricular hypertrophy with repolarization abnormality Inferior infarct , possibly acute ACUTE WI / STEMI Consider right ventricular involvement in acute inferior infarct Abnormal ECG Confirmed by GERALD MORENO, BARB ([id number]), scientific editor RUPESH STRAUSS ([id number]) on 11/19/2020 9:24:32 AM Referred By: Primitivo Hamm Confirmed By:BARB DUARTE MD
--- NOTE | 2020-11-15 06:40 | RAD_ITS ---
STUDY: X-RAY CHEST REASON FOR EXAM: Male, 60 years old. chest pain TECHNIQUE: Single AP portable view of the chest. COMPARISON: 11/07/2019 FINDINGS: The lungs are clear and expanded. There is no demonstrated pleural abnormality. Normal size heart. Normal mediastinum and michelle. Normal visualized pulmonary arteries. Normal visualized aortic arch and descending thoracic aorta. Normal visualized thoracic spine. Normal visualized ribs, clavicles, and shoulders. There is no demonstrated abnormality of the visualized soft tissue structures of the upper abdomen. RAD/Chest 1 View (Portable) IMPRESSION: Normal x-ray examination of the chest. Electronically Signed: Marc Donovan MD at 7:52 EDT Tel , Service support ,
--- NOTE | 2020-11-15 06:48 | ED.VIS.CHEST ---
HPI History of Present Illness Chief Complaint: Chest Pain Detail of Chief Complaint: Chest pain that started about 3:30 AM Informant: patient Narrative Narrative: Vomiting. He did feel somewhat short of breath with it. Patient is never had discomfort like that before. Patient states his pain is currently mostly resolved. He does have history of hypertension but not on any medications.Patient presents with complaint of chest discomfort that started around 3 3 AM and woke him up from sleep. He had pain across his chest that was pressure-like and radiated into his jaw and shoulders. CVD Risk Factors: Positive for Hypertension and Smoking [facility] Medical History (Updated 11/15/20 @ 07:[address] Melissa Vail, DO) Psoriatic arthritis Home Medications adalimumab [Humira(CF) Pen] 40 mg SUBCUT X1 11/15/20 [History Last Taken Unknown] Allergy/AdvReac Type Severity Reaction Status Date / Time No Known Allergies Allergy Verified 09/14/15 04:44 Social History Smoking Status: Current every day smoker tobacco type: cigarettes ROS ROS ED Review of Systems ROS Unobtainable: other Constitutional Constitutional ED: Reports lethargy; Denies chills, fever(s), sweats or weight loss Eyes Eyes: Denies blurry vision, change in vision or diplopia ENT ENT ED: Denies rhinorrhea or sore throat Cardiovascular Cardiovascular: Reports chest pain and racing heartbeat; Denies orthopnea Respiratory/Chest Respiratory/Chest: Reports dyspnea and dyspnea on exertion; Denies cough, orthopnea or sputum Gastrointestinal Gastrointestinal: Denies abdominal pain, diarrhea, nausea or vomiting Genitourinary Genitourinary ED: Denies dysuria, hematuria or urinary frequency Musculoskeletal Musculoskeletal: Denies arthralgias, back pain, myalgias or neck pain Integumentary Denies abscess, Abrasions or rash Neurologic Neurologic: Denies headache(s) or weakness Psychiatric Psychiatric: Denies anxiety, depression or suicidal thoughts Endocrine Endocrinology: Denies polydipsia, polyphagia or polyuria Hematologic/Lymphatic Hematologic/Lymphatic: Denies easy bleeding, easy bruising or lymphadenopathy Allergic/Immunologic Allergic/Immunologic ED: Denies mouth swelling, tongue swelling or urticaria EXAM Physical Exam Const Vital Signs: 11/15/20 06:30 11/15/20 06:33 11/15/20 06:34 Temperature 97.8 F Temperature Source Oral Pulse Rate 61 60 Respiratory Rate 22 H 18 Respiratory Effort Normal Respiratory Pattern Normal Blood Pressure 200/89 H 200/89 H Blood Pressure Mean 126 126 Pulse Ox 95 96 Oxygen Delivery Method Room Air Room Air 11/15/20 06:50 Temperature 97.8 F Temperature Source Oral Pulse Rate 60 Respiratory Rate 14 Respiratory Effort Respiratory Pattern Blood Pressure 170/77 H Blood Pressure Mean 126 Pulse Ox 96 Oxygen Delivery Method Room Air Positive well nourished and well developed General Appearance ED: well developed and NAD HEENT Reports TM's clear and moist mucous membranes normocephalic and atraumatic; Negative for trauma or tenderness Tympanic Membrane ED: Yes TM's clear Eyes PERRL and EOMs intact bilaterally General Eye ED: Negative for pale conjunctiva or scleral icterus Neck no lymphadenopathy, supple and no JVD General: Negative for tenderness Chest Wall inspection of chest normal and palpation of chest normal Chest: Negative for tenderness Resp normal respiratory effort and clear to auscultation bilaterally Effort and Inspection: Negative for respiratory distress or pain with movement Auscultation: Negative for rhonchi, wheezes or diminished lung sounds Cardio regular rate, regular rhythm, S1 normal heart sound, S2 normal heart sound and no murmurs Peripheral Pulses: pulses 2+ throughout GI normal to inspection, nondistended, normoactive bowel sounds, soft to palpation, non-tender, non-distended and no masses Back/Spine no CVA tenderness and no thoracic nor lumbar tenderness Extremity normal to inspection General Extremety ED: Negative for edema General Extremity: Negative for edema Neuro oriented x3, CN's II-XII intact bilaterally, no sensory deficits noted and gait normal Sensorium / Orientation: awake, alert, oriented to person, oriented to place and oriented to time Motor Exam: strength 5/5 throughout and strength abnormal Psych mental status grossly normal Skin no rashes or lesions noted and no wounds MDM MDM MDM Narrative Medical decision making narrative: Patient noted to have ST elevation in the inferior leads with reciprocal changes noted laterally. Discussed case with channel director will take patient to Ssrs Developer for ST elevation IN of the inferior wall. Media Relations Director felt he was having an acute coronary syndrome but did not fully meet criteria for a STEMI as he did not have significant enough elevation in the inferior leads. Lab Data Attestation: I reviewed the patient's lab results. Labs: Laboratory Results - last 24 hr 11/15/20 06:37 WBC 10.7 RBC 4.98 Hgb 16.2 Hct 48.7 MCV 97.8 H MCH 32.5 H MCHC 33.3 RDW Std Deviation 45.1 H RDW Coeff of Lori 12.5 Plt Count 323 MPV 9.4 Immature Gran % (Auto) 0.400 Neut % (Auto) 66.9 Lymph % (Auto) 23.4 Heard % (Auto) 6.5 Eos % (Auto) 2.3 Baso % (Auto) 0.5 Absolute Neuts (auto) 7.2 Absolute Lymphs (auto) 2.49 Nucleated RBC % 0 Radiography Chest X-Ray - ED: 1 View Diagnostic Testin view chest x-ray obtained interpreted by myself as no acute disease process. EKG Initial EKG: Comments: Acute ST elevation IN inferior wall with reciprocal changes laterally Prior EKG tracings: not available for review Discharge Plan Dx/Rx/DC Orders Clinical Impression: Chest pain, ACS (acute coronary syndrome) Disposition Disposition: Acute Care [facility]
[2020-11-15] MEDS: TICAGRELOR 90 MG TABLET 180 MG PO (06:49)
[2020-11-15] MEDS: Aspirin 81 MG TAB.CHEW 324 MG PO (06:49)
[2020-11-15] MEDS: Heparin Injection (Vial) 5,000 UNIT/ML VIAL 4000 UNIT IV (06:49)
[2020-11-15 06:50] LABS: Absolute Lymphocyte Count 2.49 X10^3/uL (0.83-4.51); Absolute Neutrophil Count 7.2 X10^3/uL (2.0-7.7); Basophil# 0.05 X10^3/uL; Basophil% 0.5 % (0-1); Eosinophil# 0.24 X10^3/uL; Eosinophils% 2.3 % (0-5); Hematocrit 48.7 % (40-54); Hemoglobin 16.2 g/dL (13.0-16.5); Lymphocyte # 2.49 X10^3/ul (0.83-4.51); Lymphocyte % 23.4 % (19-41); Mean Corp Hgb Conc 33.3 g/dL (32-36); Mean Corpuscular Hgb 32.5 pg (27.0-32.0); Mean Corpuscular Volume 97.8 fL (80-94); Mean Platelet Vol. 9.4 fl (6.2-12.0); Monocyte# 0.69 X10^3/uL; Monocyte% 6.5 % (0-10); NRBC Flagged by Analyzer 0 % (0-5); Neutrophil # 7.15 X10^3/uL (2.7-7.7); Neutrophil % 66.9 % (47-70); Platelet Count 323 K/mm3 (150-450); RBC Distribution Width CV 12.5 % (11.6-14.6); RBC Distribution Width SD 45.1 fl (35.1-43.9); Red Blood Count 4.98 M/mm3 (4.6-6.2); White Blood Count 10.7 K/mm3 (4.4-11.0)
[2020-11-15] MEDS: 0.9% Normal Saline 1,000 ML 150 ML IV (06:54)
[2020-11-15 07:10] LABS: Anion Gap 5 (5-15); BUN 12 mg/dL (7-18); BUN/Creat Ratio 14.2 RATIO (10-20); Calcium,Total 9.1 mg/dL (8.5-10.1); Chloride 106 mmol/L (98-107); Creatinine, Serum 0.84 mg/dL (0.70-1.30); EST Glomerular Filtration Rate 99 mL/min (>60); Est Glom Filt Rate - Afr Amer 119 mL/min (>60); Estimated Creatinine Clearance 96.56 ml/min; Glucose 88 mg/dL (74-106); Potassium 4.3 mmol/L (3.5-5.1); Sodium Level 139 mmol/L (136-145); Troponin-I HS 79.8 pg/mL (3.0-78.5)
[2020-11-15 07:13] LABS: International Normalized Ratio 1.2; Prothrombin Time (Protime)PT. 14.6 SECONDS (11.7-14.9)
[2020-11-15 07:30] LABS: Partial Thromboplast Time > 250.0 Seconds (24.1-36.2)
--- NOTE | 2020-11-15 08:45 | EKG12_ITS ---
Test Reason : AM EKG Blood Pressure : / mmHG Vent. Rate : 053 BPM Atrial Rate : 053 BPM P-R Int : 166 ms QRS Dur : 100 ms QT Int : 484 ms P-R-T Axes : 073 055 255 degrees QTc Int : 454 ms Sinus bradycardia Left ventricular hypertrophy with repolarization abnormality Abnormal ECG When compared with ECG of 15-NOV-2020 06:30, MANUAL COMPARISON REQUIRED, DATA IS UNCONFIRMED Confirmed by HORTENCIA MORENO, MITALI ([id number]), industrial editor RUPESH STRAUSS ([id number]) on 11/19/2020 2:02:55 PM Referred By: Primitivo Hamm Confirmed By:PORTIA BURNETT MD
--- NOTE | 2020-11-15 08:46 | PCI.CARDCATH ---
PCI Cardiac Cath Report PCI Report: Procedure performed; 1. Left heart catheterization 2. Left ventriculogram 3. Successful percutaneous core intervention of the culprit lesion with the following; A. Successful PCI of mid RPDA, subtotal 99% with WAI 2 flow, delete this predilatation using 2 x 15 mm emerge balloon Followed by placement of drug-eluting stent 2.5 x 22 mm Orsiro stent maintenance of WAI-3 flow in the RPDA B. Use of intravascular ultrasound to determine the diameter of the culprit lesion RCA 5. Successful PCI and stent of proximal to mid RCA with predilatation using 2 x 15 mm Emerge balloon followed by placement of drug-eluting stent 4 x 40 mm overlap with 4 x 18 mm drug-eluting stent/Orsiro Postdilated with 4 x 20 mm NC emerge balloon. With reduction of stenosis from 70% to 0% and maintenance of WAI-3 flow. 6. Use of Integrilin 2 bolus and Integrilin infusion 7. Use of TR band to maintain hemostasis of the right radial artery arteriotomy site. Preprocedure diagnosis; 60-year-old patient brought in by his to the hospital, complaining of symptoms of retrosternal chest pain with radiation to the arms He evidently had the symptoms for some time especially noted on exertion and walking typical of angina He had a history of hypertension however he was not on any medical therapy and patient also had a history of smoking Seen and evaluated by the ER physician where the EKG is abnormal with evidence of ST elevation noted in lead III one and half millimeter does not qualify for a diagnosis of STEMI as there were no other ST elevation in the rest of the leads As well he had clear evidence of ST depression noted in the lateral leads lead I, aVL and V5 V6 with evidence of LVH with repolarization abnormality. Based on his clinical presentation and significantly abnormal electrocardiogram we proceed for urgent cardiac catheterization with a clinical diagnosis of ACS Consent; Risk and benefit of the procedure explained detail to the patient elected to proceed informed consent obtained. Diagnostic catheter and interventional equipment used; 1. 6 Ghanaian sheath in the right radial artery This is followed by cocktail of verapamil, heparin as well as nitroglycerin 5 Ghanaian JL 3.5 5 Ghanaian JR4 5 Ghanaian pigtail catheter 6 Ghanaian JR4 guide catheter 0.014 run-through extra floppy 180 cm straight Image MR 2 x 15 mm balloon NC image MR 4 x 20 mm balloon Drug-eluting stentOrsiro 2.5 x 22 mm Drug-eluting stent Orsiro 4 x 18 mm Drug-eluting stent Orsiro 4x 40 mm. Procedure in detail; Patient brought as a urgent case from the ER Right radial artery area prepped and draped in the usual sterile fashion Access obtained from the right radial artery and a 6 Ghanaian sheath placed the right radial artery Proceed with 5 Ghanaian JL 3.5 advanced ascending aorta cannulated the left main coronary multiple views of the left coronary system including HUNGARIAN, COREAS cranial and caudal view Following this catheter exchanged for 5 Ghanaian JR4 and multiple views right consumer obtained Identified the culprit lesion which is a subtotal RPDA with significant atherosclerosis involving the proximal to mid RCA large dominant vessel Then will proceed with the guide catheter patient was given heparin Brilinta and ACT level at the end of the procedure was 252 He was given aspirin 324 mg Proceed with a run-through wire across the lesion is followed by predilatation using 2 x 50 mm balloon followed by placement of a drug-eluting stent 2.5 x 22 mm The same balloon was used to predilate the proximal to mid RCA lesion We used intravascular ultrasound to determine the diameter of the large RCA which is around 4 to 4.5 mm We will proceed with drug-eluting stent placed 4 x 40 from the distal end in the mid RCA overlap with 4 x 18 mm and postdilated using 4 x 20 mm up to 18 POPEYE and achievement of excellent result with WAI-3 flow with no complication in the [employer] Officer Hemodynamic; LVEDP elevated around 28 mmHg LV systolic function is preserved ejection fraction of around 70, hyperdynamic left ventricle There is no systolic gradient across aortic valve. There is no mitral regurgitation noted. Coronary angiography; 1. Left main distal 10-20%, bifurcating into LAD and the left circumflex Ostial left anterior descending had a 40%, mid LAD had 70% The left circumflex high OM1 with no significant atherosclerosis The circumflex itself is moderate sized vessel RCA large dominant with a proximal RCA 70 mid RCA 70 distal RCA 40% and RPDA subtotal 99% Conclusion and recommendation This patient has acute coronary syndrome with change in the EKG history of smoking and significant coronary atherosclerosis involving the right coronary large dominant vessel this has been evaluated by intravascular ultrasound and we used a balloon dilatation followed by use of drug-eluting stent as a specified and described in detail Patient will be admitted to the intensive care unit and will start on Integrilin infusion over 24-hour We will continue on DAPT dual antiplatelet therapy aspirin and Brilinta for 1 year We will add low-dose beta-mark carvedilol High-dose statin atorvastatin 40 mg Also will plan for phase 1 cardiac rehabilitation Patient advised cessation of smoking and will monitor his blood pressure and evaluate by echocardiogram during this admission.
[2020-11-15] MEDS: Ondansetron 4 MG/2 ML Vial IV (09:18)
--- NOTE | 2020-11-15 10:00 | EKG12_ITS ---
Test Reason : POST STEMI Blood Pressure : / mmHG Vent. Rate : 055 BPM Atrial Rate : 055 BPM P-R Int : 146 ms QRS Dur : 086 ms QT Int : 436 ms P-R-T Axes : 080 063 -81 degrees QTc Int : 417 ms Sinus bradycardia with sinus arrhythmia Left ventricular hypertrophy with repolarization abnormality Abnormal ECG No previous ECGs available Confirmed by HORTENCIA MORENO, MITALI ([id number]), assignment editor RUPESH STRAUSS ([id number]) on 11/19/2020 2:04:03 PM Referred By: Primitivo Hamm Confirmed By:PORTIA BURNETT MD
--- NOTE | 2020-11-15 10:03 | HP.PCM.HOS_ITS ---
HPI - General General Date of Admission: 11/15/20 Date of Service: 11/15/20 Chief Complaint: chest pain HPI Narrative ALLI JEFF, is a 60 M who presents with chest pain. Began around [address] here and then walked to the emergency room where he was found to have inferior ST elevations. STEMI team was called and patient was taken for left heart catheterization and I had successful PCI to the mid RPDA and to the mid RCA. Patient is currently chest pain-free but is complaining of some nausea currently. Patient states that over the past couple weeks he has been having intermittent transient chest pain that resolved spontaneously. Chest pain today went to his jaws and into his arms and he was short of breath and nauseated. He has never had a myocardial infarction or chest pain like this before. PFSH Medical History Hypertension Psoriasis Psoriatic arthritis Smoker Home Medications adalimumab [Humira(CF) Pen] 40 mg SUBCUT X1 11/15/20 [History Last Taken Unknown] Allergy/AdvReac Type Severity Reaction Status Date / Time No Known Allergies Allergy Verified 09/14/15 04:44 Social History (Updated 11/15/20 @ 10:[address] Jer Dockery, DO) Smoking Status: Heavy Smoker (>10/day) alcohol intake: current details: occassional substance use type: does not use ROS ROS Narrative Patient does have thickening of his nails and psoriatic lesions on his arms. All review of systems were negative except as mentioned above in the history of present illness and the other review of systems. Vital Signs Vital Signs Vital Signs: 11/15/20 06:30 11/15/20 06:33 11/15/20 06:34 Temperature 36.6 C Temperature Source Oral Pulse Rate 61 60 Respiratory Rate 22 H 18 Respiratory Effort Normal Respiratory Pattern Normal Blood Pressure 200/89 H 200/89 H Blood Pressure Mean 126 126 Blood Pressure Source Blood Pressure Position Blood Pressure Location Pulse Ox 95 96 Oxygen Delivery Method Room Air Room Air 11/15/20 06:50 11/15/20 09:14 Temperature 36.6 C 37.0 C Temperature Source Oral Temporal Pulse Rate 60 58 L Respiratory Rate 14 16 Respiratory Effort Respiratory Pattern Blood Pressure 170/77 H 166/78 H Blood Pressure Mean 126 107 Blood Pressure Source Monitor Blood Pressure Position Semi-Fowlers Blood Pressure Location Left Arm Pulse Ox 96 100 Oxygen Delivery Method Room Air Room Air Weight Weight: 77.2 kg Body Mass Index (BMI) 24.4 Physical Exam Const alert and no apparent distress General Appearance: cooperative HEENT normocephalic, hearing grossly normal bilaterally and moist oral mucous membranes Eyes PERRL Neck no lymphadenopathy and no carotid bruits Resp normal respiratory effort, no retractions, no use of accessory muscles and clear to auscultation bilaterally Cardio regular rate, regular rhythm, S1 normal heart sound and S2 normal heart sound GI normal to inspection, nondistended, normoactive bowel sounds, soft to palpation, non-tender, non-distended and hepatosplenomegaly Extremity normal to inspection and no clubbing, cyanosis or edema Skin no jaundice Skin Narrative: Thickened toe and fingernails Neuro no focal motor deficits Sensorium / Orientation: awake and alert Psych affect normal Results Medical Records Data Medical Nutrition Assessment Dietitian: Nutrition Therapy Diagnosis Start: 11/15/20 09:44 Freq: Status: Active Protocol: Document 11/15/20 09:51 SLA (Rec: 11/15/20 09:51 SLA [id number]) Nutrition Malnutrition Evidence of Malnutrition Exists No Intake Problem None at this time Status Active Problem Clinical Problem None at this time Status Active Problem Recommendation Dietitian Recommendations/Changes Will continue w/ Cardiac Heart Healthy diet Will provide additional diet education at time of follow up as indicated. Lab / Micro Data Attestation: I reviewed the patient's lab results. Result Diagrams: 11/15/20 06:37 11/15/20 06:37 Labs: Laboratory Results - last 24 hr 11/15/20 06:37: WBC 10.7, RBC 4.98, Hgb 16.2, Hct 48.7, MCV 97.8 H, MCH 32.5 H, MCHC 33.3, RDW Std Deviation 45.1 H, RDW Coeff of Lori 12.5, Plt Count 323, MPV 9.4, Immature Gran % (Auto) 0.400, Neut % (Auto) 66.9, Lymph % (Auto) 23.4, [place] % (Auto) 6.5, Eos % (Auto) 2.3, Baso % (Auto) 0.5, Absolute Neuts (auto) 7.2, Absolute Lymphs (auto) 2.49, Nucleated RBC % 0 11/15/20 06:37: Sodium 139, Potassium 4.3, Chloride 106, Carbon Dioxide 28.0, Anion Gap 5, BUN 12, Creatinine 0.84, Estim Creat Clear Calc 96.56, Est GFR (MDRD) Af Amer 119, Est GFR (MDRD) Non-Af 99, BUN/Creatinine Ratio 14.2, Glucose 88, Calcium 9.1, Troponin I High Sens 79.8 H* 11/15/20 06:52: PT 14.6, INR 1.2, APTT > 250.0 H* EKG Initial EKG: Attestation: I personally reviewed and interpreted this EKG as follows: Prior EKG tracings: available for review EKG Rhythm Intrepretation: Sinus Rhythm (Inferior ST elevation no reciprocal changes in the lateral leads) Follow-up EKG: Attestation: I personally reviewed and interpreted this EKG as follows: Prior EKG tracings: available for review EKG Rhythm Intrepretation: Sinus Rhythm (Resolution of the ST elevation in inferior leads.) Radiology Impression Chest X-Ray 11/15/20 06:40 IMPRESSION: Normal x-ray examination of the chest. Electronically Signed: Marc Donovan MD at 7:52 EDT Tel , Service support , Assessment & Plan Assessment/Plan (1) STEMI (ST elevation myocardial infarction): QUALIFIERS: Involved coronary artery: right coronary artery Qualified Code(s): I21.11 - ST elevation (STEMI) myocardial infarction involving right coronary artery PLAN: 1. ST elevation myocardial infarction Status post PCI to the mid RPDA as well as mid RCA Patient on aspirin and ticagrelor and high intensity statin Additional management per cardiology Check echocardiogram 2. Tobacco abuse Patient smokes 1 pack/day Advised cessation as smoking is his biggest preventable risk factor 3. Psoriatic arthritis On Humira Follow-up with rheumatology 4. VTE prophylaxis with low molecular weight heparin to be started on . Disposition: Patient remained stable and would anticipate patient be able to be discharged on the 6. Maintenance: Patient has been vaccinated for COVID-19. Charges/Coding Visit Charges Inpatient E&M: 36916 Init Hosp L3
--- NOTE | 2020-11-15 10:27 | PCM.CONS.C ---
Assessment & Plan Assessment/Plan (1) ACS (acute coronary syndrome): PLAN: This patient 60-year-old with history of smoking hypertension Presented with symptoms of chest pain brought in by his Typical of angina he noted also symptoms of chest pain on exertion and walking Patient underwent urgent cardiac catheterization The electrocardiographic criteria does not qualify for STEMI as had single-lead ST elevation of 1.5 mm in lead III with signs of LVH and secondary repolarization in V5 V6 Patient clinical diagnosis acute coronary syndrome and brought into the [facility] due to persistent symptoms of chest pain He had a complex coronary anatomy involving a large dominant RCA with subtotal RPDA and a complex lesion in the proximal to mid RCA Underwent successful PCI and stenting/please refer to the detailed PCI report Recommendation plan; 1. Patient is on Integrilin infusion for 18 hours 2. DAPT/dual antiplatelet therapy Brilinta and aspirin for 1 year 3. High-dose statin atorvastatin 40 mg once a day 4. We will evaluate by echocardiogram 5. We will start treatment for hypertension 6. Phase 1 cardiac rehab program. 7. Patient will follow up with the cardiology team here at [facility] cardiology group for continuation of cardiac care (2) Chest pain: HPI Consult Data Date of Consult: 11/15/20 HPI Narrative Reason for Consultation: Acute coronary syndrome with ST elevation in a single lead lead III HPI Narrative: ALLI JEFF, is a 60 M who presents [facility] Medical History Hypertension Psoriasis Psoriatic arthritis Smoker Home Medications adalimumab [Humira(CF) Pen] 40 mg SUBCUT X1 11/15/20 [History Last Taken Unknown] Allergy/AdvReac Type Severity Reaction Status Date / Time No Known Allergies Allergy Verified 09/14/15 04:44 Social History (Updated 11/15/20 @ 10:[address] 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 Objective Data Vital Signs: Vital Signs Temp Pulse Resp BP Pulse Ox 98.6 F 72 26 H 185/65 H 100 11/15/20 09:14 11/15/20 10:00 11/15/20 10:00 11/15/20 10:00 11/15/20 10:00 Oxygen Delivery Method Room Air Weight: 170 lb 3.15 oz Body Mass Index (BMI) 24.4 Lab / Micro Data Result Diagrams: 11/15/20 06:37 11/15/20 06:37 Labs: Laboratory Results - last 24 hr 11/15/20 06:37: WBC 10.7, RBC 4.98, Hgb 16.2, Hct 48.7, MCV 97.8 H, MCH 32.5 H, MCHC 33.3, RDW Std Deviation 45.1 H, RDW Coeff of Lori 12.5, Plt Count 323, MPV 9.4, Immature Gran % (Auto) 0.400, Neut % (Auto) 66.9, Lymph % (Auto) 23.4, [place] % (Auto) 6.5, Eos % (Auto) 2.3, Baso % (Auto) 0.5, Absolute Neuts (auto) 7.2, Absolute Lymphs (auto) 2.49, Nucleated RBC % 0 11/15/20 06:37: Sodium 139, Potassium 4.3, Chloride 106, Carbon Dioxide 28.0, Anion Gap 5, BUN 12, Creatinine 0.84, Estim Creat Clear Calc 96.56, Est GFR (MDRD) Af Amer 119, Est GFR (MDRD) Non-Af 99, BUN/Creatinine Ratio 14.2, Glucose 88, Calcium 9.1, Troponin I High Sens 79.8 H* 11/15/20 06:52: PT 14.6, INR 1.2, APTT > 250.0 H* Cardiology Labs/Tests 11/15/20 06:37: WBC 10.7, RBC 4.98, Hgb 16.2, Hct 48.7, MCV 97.8 H, MCH 32.5 H, MCHC 33.3, Plt Count 323, MPV 9.4, Immature Gran % (Auto) 0.400, Neut % (Auto) 66.9, Lymph % (Auto) 23.4, [place] % (Auto) 6.5, Eos % (Auto) 2.3, Baso % (Auto) 0.5, Absolute Neuts (auto) 7.2, Nucleated RBC % 0 11/15/20 06:37: Sodium 139, Potassium 4.3, Chloride 106, Carbon Dioxide 28.0, Anion Gap 5, BUN 12, Creatinine 0.84, Est GFR (MDRD) Af Amer 119, Est GFR (MDRD) Non-Af 99, BUN/Creatinine Ratio 14.2, Glucose 88, Calcium 9.1 11/15/20 06:52: PT 14.6, INR 1.2, APTT > 250.0 H* Rhythm: Normal sinus rhythm EKG: ST elevation noted in lead III does not qualify for STEMI Evidence of LVH with secondary repolarization : Radiography Diagnostic Testing: Radiology Impression Chest X-Ray 11/15/20 06:40 IMPRESSION: Normal x-ray examination of the chest. Electronically Signed: Marc Donovan MD at 7:52 EDT Tel , Service support ,
[2020-11-15 11:51] LABS: Hematocrit 46.2 % (40-54); Hemoglobin 15.8 g/dL (13.0-16.5); Mean Corp Hgb Conc 34.2 g/dL (32-36); Mean Corpuscular Hgb 32.4 pg (27.0-32.0); Mean Corpuscular Volume 94.7 fL (80-94); Mean Platelet Vol. 9.6 fl (6.2-12.0); Platelet Count 314 K/mm3 (150-450); RBC Distribution Width CV 12.5 % (11.6-14.6); RBC Distribution Width SD 43.9 fl (35.1-43.9); Red Blood Count 4.88 M/mm3 (4.6-6.2); White Blood Count 11.2 K/mm3 (4.4-11.0)
--- NOTE | 2020-11-15 12:50 | CASEMGMT ---
JESSIE CAGLE Assessment: Face to Face with pt for initial transition planning/care coordination assessment. RN GURJIT introduced self and role at [facility], pt voices understanding and consents to assessment. Pt is A/O x4 and answers all questions appropriately at this time. Pt sitting up in bed in no distress with at bedside. Care providers, pharmacy, and demographics verified/updated. Admitting Dx:STEMI PCP:Donnell Specialists:Torey for psoriatic arthritis Preferred Pharmacy: [facility] Insurance: [employer] Prescription Benefit: yes LW/HPOA: Pt denies having a LW/DPOA. LNOK: Noreen Zaidi, Living Arrangements: Pt lives in a two story house with one step to enter with . Pt states he is I in ADL's and denies concerns at home. Transportation: Pt states he drives and denies concerns with transportation. DME/HHC/SNF: Pt has a cane at home but does not use. Denies hx of HHC or SNF stay. Pt states no concerns with going home at time of dc. Pt states no further concerns/needs. CM to follow. Advised pt to ask CM if any further question/concerns/needs arise, voices understanding. Pt Goal: Home Plan: Home
--- NOTE | 2020-11-15 13:45 | NURSING ---
Pt called out after waking up from nap c/o wrist throbbing-- hematoma identified. Manual pressure held and hematoma massaged out. TR band reapplied w/ 11 cc of air at 1345. Pt instructed to not use R arm at all,arm elevated on pillow. Radial pulses strong, R hand pink and warm but pt c/o numbness and tingling. Will monitor.
--- NOTE | 2020-11-15 14:00 | NURSING ---
Integrilin drip stopped per Dr. aHmm, was previously running at 2 mcg/kg/min from [employer].
[2020-11-15 14:19] LABS: Troponin-I HS 4658.1 pg/mL (3.0-78.5)
--- NOTE | 2020-11-15 14:27 | ECHOD_ITS ---
Reason For Study: S/P PR Procedure This was a 2D Doppler, Color Flow transthoracic echocardiogram. Exam performed portable in patient room. Left Ventricle Normal LV size. The estimated ejection fraction is 60 %. Normal diastology for age. No regional wall motion abnormalities noted. Right Ventricle Normal RV size. Normal systolic function. Atria Normal left atrium. Normal right atrium. No doppler evidence for ASD. Mitral Valve There is no mitral valve stenosis. No mitral valve insufficiency. Tricuspid Valve There is no tricuspid stenosis. Unable to estimate RV systolic pressure due to insufficient tricuspid regurgitant envelope. Aortic Valve Trisinus/trileaflet aortic valve. Aortic sclerosis, no stenosis. There is no aortic stenosis. No aortic valve insufficiency. Pulmonic Valve There is no pulmonic valvular stenosis. No pulmonic valve insufficiency. Great Vessels Normal aortic root. Pericardium/Pleural No pericardial effusion. MMode/2D Measurements & Calculations LVIDd: 4.7 cm IVSd: 1.1 cm Ao root diam: 3.2 cm LVIDs: 3.2 cm LVPWd: 1.1 cm RVDd: 3.5 cm FS: 32.3 % LAV(MOD-bp): 52.2 ml LVAd ap4: 35.6 cm2 SV(MOD-sp4): 70.0 ml LAV(MOD-bp) Indexed: 27.0 ml/m2 LVLd ap4: 8.8 cm LAV(MOD-sp2): 53.6 ml EDV(MOD-sp4): 115.4 ml LAV(MOD-sp4): 46.8 ml EDV(sp4-el): 122.2 ml LVAs ap4: 20.6 cm2 LVLs ap4: 7.9 cm ESV(MOD-sp4): 45.5 ml ESV(sp4-el): 45.7 ml EF(MOD-sp4): 60.6 % EF(sp4-el): 62.6 % SV(sp4-el): 76.5 ml LA A4 area: 17.8 cm2 LA dimension(2D): 3.7 cm RA A4 area: 14.1 cm2 Time Measurements MV dec time: 0.25 sec Doppler Measurements & Calculations MV E max ish: 60.6 cm/sec Lat Peak E' Ish: 9.6 cm/sec Med Peak E' Ish: 7.0 cm/sec MV A max ish: 76.4 cm/sec E/E' lat: 6.3 E/E' med: 8.7 MV E/A: 0.79 Ao V2 max: 170.5 cm/sec LV V1 max: 155.3 cm/sec PA V2 max: 108.6 cm/sec Ao max P.6 mmHg LV V1 max P.6 mmHg TR max ish: 289.6 cm/sec TR max P.5 mmHg ECHO/Echo Complete Interpretation Summary The estimated ejection fraction is 60 %. Normal diastology for age. Ordering Physician: Primitivo Hamm Referring Physician: DAVID MATIAS Performed By: Cari Diane RDCS
[2020-11-15] MEDS: Atorvastatin Calcium 40 MG Tablet PO (21:03)
--- NOTE | 2020-11-15 22:40 | NURSING ---
Addendum entered by Emelia Shin 11/15/20 22:47: pt did not want me to call family omari Original Note: transfer report called to RN ALLERGY
[2020-11-16] VITALS (9 sets, daily range): BP systolic 137–161; BP diastolic 69–83; PULSE 52–59; RESP 12–18; TEMP 36.4–37.1; O2SAT 94–97
[2020-11-16 07:01] LABS: Hemoglobin 14.2 g/dL (13.0-16.5); Mean Corpuscular Hgb 32.6 pg (27.0-32.0); Mean Corpuscular Volume 98.6 fL (80-94); Mean Platelet Vol. 9.7 fl (6.2-12.0); Platelet Count 278 K/mm3 (150-450); RBC Distribution Width CV 12.8 % (11.6-14.6); RBC Distribution Width SD 46.1 fl (35.1-43.9); Red Blood Count 4.36 M/mm3 (4.6-6.2); White Blood Count 9.8 K/mm3 (4.4-11.0)
[2020-11-16 07:29] LABS: ALB/GLOB Ratio 0.9 RATIO (0.9-2.4); AST(SGOT) 39 U/L (15-37); Alanine Aminotransfer ALT/SGPT 22 U/L (16-61); Albumin, Serum 3.1 g/dL (3.2-5.0); Alkaline Phosphatase 60 U/L (45-117); Anion Gap 5 (5-15); BUN 17 mg/dL (7-18); BUN/Creat Ratio 20.2 RATIO (10-20); Calcium,Total 8.1 mg/dL (8.5-10.1); Chloride 110 mmol/L (98-107); Creatinine, Serum 0.84 mg/dL (0.70-1.30); EST Glomerular Filtration Rate 99 mL/min (>60); Est Glom Filt Rate - Afr Amer 119 mL/min (>60); Estimated Creatinine Clearance 96.56 ml/min; Globulin 3.4 g/dL (2.2-4.2); Glucose 107 mg/dL (74-106); Potassium 3.8 mmol/L (3.5-5.1); Protein, Total 6.5 g/dL (6.4-8.2); Sodium Level 139 mmol/L (136-145)
[2020-11-16] MEDS: TICAGRELOR 90 MG TABLET PO ×2 (09:23→21:24)
[2020-11-16] MEDS: Aspirin E.C. 81 MG Tablet PO (09:23)
[2020-11-16] MEDS: Enoxaparin 40 MG/0.4 ML Syringe SC (09:23)
--- NOTE | 2020-11-16 11:45 | PN.CARD_ITS ---
Subjective Subjective Seen evaluated today at bedside along with the nursing staff and Comfortable in bed no symptoms of chest pain reporte. Small bruises on the left radial artery site. No hematoma radial pulse palpable as well as ulnar pulse Objective Data Vital Signs: Vital Signs Temp Pulse Resp BP Pulse Ox 97.5 F L 57 L 15 146/69 H 94 11/16/20 09:20 11/16/20 09:20 11/16/20 09:20 11/16/20 09:20 11/16/20 09:20 Oxygen Delivery Method Room Air Weight: 166 lb 14.239 oz Body Mass Index (BMI) 24.3 Intake & Output: Intake and Output for Last 24 Hours 11/14/20 11/15/20 11/16/20 23:59 23:59 23:59 Intake Total 1260 / 1260 Output Total 1050 / 1050 375 / 375 Balance 210 / 210 -375 / -375 Lab / Micro Data Result Diagrams: 11/16/20 06:32 11/16/20 06:32 Labs: Laboratory Results - last 24 hr 11/15/20 11:25: WBC 11.2 H, RBC 4.88, Hgb 15.8, Hct 46.2, MCV 94.7 H, MCH 32.4 H , MCHC 34.2, RDW Std Deviation 43.9, RDW Coeff of Lori 12.5, Plt Count 314, MPV 9.6 11/15/20 11:25: Troponin I High Sens 4658.1 H* 11/16/20 06:32: WBC 9.8, RBC 4.36 L, Hgb 14.2, Hct 43.0, MCV 98.6 H, MCH 32.6 H, MCHC 33.0, RDW Std Deviation 46.1 H, RDW Coeff of Lori 12.8, Plt Count 278, MPV 9.7 11/16/20 06:32: Sodium 139, Potassium 3.8, Chloride 110 H, Carbon Dioxide 24.0, Anion Gap 5, BUN 17, Creatinine 0.84, Estim Creat Clear Calc 96.56, Est GFR (MDRD) Af Amer 119, Est GFR (MDRD) Non-Af 99, BUN/Creatinine Ratio 20.2 H, Glucose 107 H, Calcium 8.1 L, Total Bilirubin 0.60, AST 39 H, ALT 22, Alkaline Phosphatase 60, Total Protein 6.5, Albumin 3.1 L, Globulin 3.4, Albumin/Globulin Ratio 0.9 Cardiology Labs/Tests 11/15/20 11:25: WBC 11.2 H, RBC 4.88, Hgb 15.8, Hct 46.2, MCV 94.7 H, MCH 32.4 H , MCHC 34.2, Plt Count 314, MPV 9.6 11/16/20 06:32: WBC 9.8, RBC 4.36 L, Hgb 14.2, Hct 43.0, MCV 98.6 H, MCH 32.6 H, MCHC 33.0, Plt Count 278, MPV 9.7 11/16/20 06:32: Sodium 139, Potassium 3.8, Chloride 110 H, Carbon Dioxide 24.0, Anion Gap 5, BUN 17, Creatinine 0.84, Est GFR (MDRD) Af Amer 119, Est GFR (MDRD) Non-Af 99, BUN/Creatinine Ratio 20.2 H, Glucose 107 H, Calcium 8.1 L, Total Bilirubin 0.60 Rhythm: Normal sinus EKG: ST elevation in single lead lead III, with evidence of LVH secondary repolarization abnormality. Physical Exam Narrative Patient alert orientated x3 Cardiac exam essentially normal S1-S2 regular there is no murmur no systolic or diastolic murmur Chest exam clear to auscultation Examination abdomen soft Examination lower extremity no clubbing no cyanosis no extremity edema Examination intracranial process no focal medical deficit. Assessment & Plan Assessment/Plan (1) Chest pain: (2) ACS (acute coronary syndrome): PLAN: 60-year-old patient brought to the ER by his due to symptoms of chest pain evidently the symptoms have been ongoing described as epigastric discomfort he thought this is acid reflux Seen evaluated in the ER by ER physician showed abnormal EKG with 1.5 ST elevation in lead III does not qualify for a STEMI and has some evidence of LVH with secondary repolarization abnormality Patient was taken to the cardiac catheterization cardiac cath which revealed significant atherosclerosis involving the right coronary system underwent PCI and stent of the RPDA and the proximal to mid RCA using drug-eluting stent with achievement of excellent result Remains stable post procedure with no symptoms reported further Recommendation plan; 1. Continue on DAPT Brilinta/aspirin for 1 year 2. Advised lifestyle change and cessation of smoking 3. Follow-up with cardiology for continuation of cardiac care plan 4. Baseline heart rate is slow around 56 bpm no beta-mark 5. High-dose statin atorvastatin 40 mg. 6. Schedule for phase 1 cardiac rehab program and follow-up with, Dr. Pichardo cardiology for continuation of cardiac care plan.
--- NOTE | 2020-11-16 13:37 | EKG12_ITS ---
Test Reason : CP Blood Pressure : / mmHG Vent. Rate : 052 BPM Atrial Rate : 052 BPM P-R Int : 160 ms QRS Dur : 096 ms QT Int : 476 ms P-R-T Axes : 073 064 264 degrees QTc Int : 442 ms Sinus bradycardia Left ventricular hypertrophy with repolarization abnormality Abnormal ECG When compared with ECG of 16-NOV-2020 06:00, MANUAL COMPARISON REQUIRED, DATA IS UNCONFIRMED Confirmed by HORTENCIA MORENO, MITALI ([id number]), supervising editor news reel RUPESH STRAUSS ([id number]) on 11/19/2020 2:02:03 PM Referred By: Primitivo Hamm Confirmed By:PORTIA BURNETT MD
--- NOTE | 2020-11-16 14:44 | PN.HOSP_ITS ---
Subjective Subjective Overall feels better just some subtle left-sided chest pain but much improved from when he initially came in. Later, he felt short of breath after eating. Objective Data Objective Data Vital Signs: Vital Signs Temp Pulse Resp BP Pulse Ox 36.6 C 56 L 14 153/80 H 96 11/16/20 13:26 11/16/20 13:26 11/16/20 13:26 11/16/20 13:26 11/16/20 13:26 Oxygen Delivery Method Room Air Weight: 75.7 kg Body Mass Index (BMI) 24.3 Intake & Output: Intake and Output for Last 24 Hours 11/14/20 11/15/20 11/16/20 23:59 23:59 23:59 Intake Total 1260 / 1260 450 / 450 Output Total 1050 / 1050 375 / 375 Balance 210 / 210 75 / 75 Medical Nutrition Assessment Dietitian: Nutrition Therapy Diagnosis Start: 11/15/20 09:44 Freq: Status: Active Protocol: Document 11/15/20 09:51 MARU (Rec: 11/15/20 09:51 SLA [id number]) Nutrition Malnutrition Evidence of Malnutrition Exists No Intake Problem None at this time Status Active Problem Clinical Problem None at this time Status Active Problem Recommendation Dietitian Recommendations/Changes Will continue w/ Cardiac Heart Healthy diet Will provide additional diet education at time of follow up as indicated. Lab / Micro Data Result Diagrams: 11/16/20 06:32 11/16/20 06:32 Labs: Laboratory Results - last 24 hr 11/16/20 06:32: WBC 9.8, RBC 4.36 L, Hgb 14.2, Hct 43.0, MCV 98.6 H, MCH 32.6 H, MCHC 33.0, RDW Std Deviation 46.1 H, RDW Coeff of Lori 12.8, Plt Count 278, MPV 9.7 11/16/20 06:32: Sodium 139, Potassium 3.8, Chloride 110 H, Carbon Dioxide 24.0, Anion Gap 5, BUN 17, Creatinine 0.84, Estim Creat Clear Calc 96.56, Est GFR (MDR D) Af Amer 119, Est GFR (MDRD) Non-Af 99, BUN/Creatinine Ratio 20.2 H, Glucose 107 H, Calcium 8.1 L, Total Bilirubin 0.60, AST 39 H, ALT 22, Alkaline Phosphatase 60, Total Protein 6.5, Albumin 3.1 L, Globulin 3.4, Albumin/Globulin Ratio 0.9 Physical Exam Const alert Constitutional Narrative: sitting at side of bed eating breakfast Resp normal respiratory effort, no retractions, no use of accessory muscles and clear to auscultation bilaterally Cardio regular rate, regular rhythm, S1 normal heart sound and S2 normal heart sound GI normal to inspection, nondistended, normoactive bowel sounds, soft to palpation, non-tender and non-distended Extremity normal to inspection Assessment & Plan Assessment/Plan (1) STEMI (ST elevation myocardial infarction): QUALIFIERS: Involved coronary artery: right coronary artery Qualified Code(s): I21.11 - ST elevation (STEMI) myocardial infarction involving right coronary artery PLAN: 1. ST elevation myocardial infarction 11/15: Status post PCI to the mid RPDA as well as mid RCA Patient on aspirin and ticagrelor and high intensity statin Additional management per cardiology Check echocardiogram 11/16: Developed shortness of breath after eating. Repeat EKG testing which showed resolution of the inferior ST elevations. 2. Tobacco abuse Patient smokes 1 pack/day Advised cessation as smoking is his biggest preventable risk factor 3. Psoriatic arthritis On Humira Follow-up with rheumatology 4. VTE prophylaxis with low molecular weight heparin to be started on 5. Disposition: Patient remained stable and would anticipate patient be able to be discharged on the 6. Maintenance: Patient has been vaccinated for COVID-19. 7. Discharge planning: Patient waiting on echocardiogram patient be observed overnight. If patient remains stable and echocardiogram is reasonably normal, patient can likely be discharged on the . Charges/Coding Visit Charges Inpatient E&M: 73248 Subs Hosp L2
[2020-11-16] MEDS: Atorvastatin Calcium 40 MG Tablet PO (21:24)
[2020-11-17 03:26] VITALS: BP 150/71; PULSE 53; RESP 16; TEMP 36.9; O2SAT 97
[2020-11-17 03:35] VITALS: PULSE 53
[2020-11-17 06:45] LABS: Hemoglobin 14.6 g/dL (13.0-16.5); Mean Corp Hgb Conc 33.2 g/dL (32-36); Mean Corpuscular Hgb 32.2 pg (27.0-32.0); Mean Corpuscular Volume 96.9 fL (80-94); Mean Platelet Vol. 9.7 fl (6.2-12.0); Platelet Count 269 K/mm3 (150-450); RBC Distribution Width CV 12.5 % (11.6-14.6); RBC Distribution Width SD 44.4 fl (35.1-43.9); Red Blood Count 4.54 M/mm3 (4.6-6.2); White Blood Count 9.7 K/mm3 (4.4-11.0)
[2020-11-17 06:59] VITALS: PULSE 51
--- NOTE | 2020-11-17 07:42 | CRPHASE1_ITS ---
Patient Communication PHII Cardiac Rehab Discussed with Patient:: Yes Guide to Cardiac Rehab Given to Patient:: Yes Cardiac Rehab Facility Choice List Given to Patient:: Yes Choice Program [facility] PHII:: Communication Given to CR Ticket Maker:: Primitivo Hamm Phase II Cardiac Rehab:: Yes Sessions:: 36 sessions - 3 days/wk, 12 weeks Cardiac Rehabilitation Info Cardiac Rehabilitation Program Information: Cardiac Rehabilitation is important for patients like you who are recovering from a heart problem. Cardiac rehabilitation programs are recognized as integral to the continued care of the patient with coronary heart disease. The cardiac rehabilitation program is designed to optimize a patient's physical, psychological, and social functioning. Health transitional care nurse work in cardiac rehabilitation programs and assist you with getting the treatments you need to get stronger and healthier - like exercise, healthy eating habits, and medications. Cardiac rehabilitation has been show to help people with heart problems live longer and have better life enjoyment than people who do not go to cardiac rehabilitation. Please contact the Cardiac Rehabilitation Program at [facility] at in two weeks if you have not heard from them.
--- NOTE | 2020-11-17 07:43 | CRPH1.INST_ITS ---
General Education CAD and cardiac anatomy and function:: Patient communicates acknowledgment, Needs reinforcement Explanation of diagnoses and procedures:: Patient communicates acknowledgment, Needs reinforcement Sign/Symptoms of IA:: Patient communicates acknowledgment, Needs reinforcement Antiplatelet therapy: Patient communicates acknowledgment, Needs reinforcement Proper use of NTG-SL: Patient communicates acknowledgment, Needs reinforcement Emergency procedures and activation of EMS: Patient communicates acknowledgment, Needs reinforcement Compliance of all prescribed medications: Patient communicates acknowledgment, Needs reinforcement Smoking Patient Nicotine/Smoking Risk Factors Are:: Cigarettes Recommendations Include:: Smoking cessation strategies/Smoking packet, Participation in a smoking cessation program Nicotine/Smoking Response Code:: Patient communicates acknowledgment, Needs re inforcement Dyslipidemia Recommendations Include:: Lipid profile not available Overweight/Obesity Patient Overweight/Obesity Risk Factors Are:: BMI Normal [18-25 & < 65 years old] Recommendations Include:: Weight loss of 5-10%, Reduced calorie diet, Exercise 5-7 times/week Overweight/Obesity:: Patient communicates acknowledgment, Needs reinforcement Hypertension Patient Hypertension Risk Factors Are:: No documented hx of HTN Diabetes Patient Diabetes Risk Factors Are:: No documented hx of diabetes Sedentary Patient Sedentary Risk Factors Are:: Lack of regular exercise Recommendations Include:: Aerobic exercise 5-7 times/week for 20-30 minutes continuously, Benefits of regular exercise, Discussed home walking program, Monitored Outpatient Cardiac Rehab Sedentary Response Code:: Patient communicates acknowledgment, Needs reinforcement
[2020-11-17 08:01] VITALS: BP 135/69; PULSE 51; RESP 16; TEMP 36.6; O2SAT 96
[2020-11-17] MEDS: Enoxaparin 40 MG/0.4 ML Syringe SC (08:05)
[2020-11-17] MEDS: Aspirin E.C. 81 MG Tablet PO (08:06)
[2020-11-17] MEDS: TICAGRELOR 90 MG TABLET PO (08:06)
--- NOTE | 2020-11-17 09:57 | PN.CARD_ITS ---
Subjective Subjective The patient is awake and alert. He states he feels better. He is not having any ongoing chest discomfort or difficulty breathing. Objective Data Vital Signs: Vital Signs Temp Pulse Resp BP Pulse Ox 97.8 F 51 L 16 135/69 H 96 11/17/20 08:01 11/17/20 08:01 11/17/20 08:01 11/17/20 08:01 11/17/20 08:01 Oxygen Delivery Method Room Air Weight: 167 lb 5.294 oz Body Mass Index (BMI) 24.3 Intake & Output: Intake and Output for Last 24 Hours 11/15/20 11/16/20 11/17/20 23:59 23:59 23:59 Intake Total 1260 / 1260 1250 / 1250 400 / 400 Output Total 1050 / 1050 375 / 375 Balance 210 / 210 875 / 875 400 / 400 Lab / Micro Data Result Diagrams: 11/17/20 06:28 11/16/20 06:32 Labs: Laboratory Results - last 24 hr 11/17/20 06:28: WBC 9.7, RBC 4.54 L, Hgb 14.6, Hct 44.0, MCV 96.9 H, MCH 32.2 H, MCHC 33.2, RDW Std Deviation 44.4 H, RDW Coeff of Lori 12.5, Plt Count 269, MPV 9.7 Cardiology Labs/Tests 11/17/20 06:28: WBC 9.7, RBC 4.54 L, Hgb 14.6, Hct 44.0, MCV 96.9 H, MCH 32.2 H, MCHC 33.2, Plt Count 269, MPV 9.7 Rhythm: Sinus rhythm ECG: : Sinus rhythm; consider LVH; T wave abnormality: Consider myocardial isc hemia: Inferior Physical Exam Const alert, oriented x3, no apparent distress and healthy appearing Orientation / Consciousness: awake HEENT normocephalic, head/scalp atraumatic and hearing grossly normal bilaterally Eyes PERRL, EOMs intact bilaterally and conjunctivae normal Neck full ROM, supple and no JVD Resp normal respiratory effort and clear to auscultation bilaterally Cardio regular rate, regular rhythm, S1 normal heart sound and S2 normal heart sound GI normal to inspection, nondistended, normoactive bowel sounds Extremity normal to inspection and no pedal edema Psych mental status grossly normal Assessment & Plan Assessment/Plan (1) ACS (acute coronary syndrome): PLAN: The patient underwent further evaluation and care for an acute coronary syndrome (please see original cardiovascular consultation note from Dr. Hamm). This led to medical therapy and an urgent/emergent diagnostic cardiac catheterization and subsequent PCI. At the moment symptomatically stable. He is going to need to continue medical management. He is pending further evaluation with a transthoracic echocardiogram to evaluate his left ventricular wall motion and systolic function. He has already been evaluated by cardiac rehabilitation. Outpatient cardiac rehabilitation will be recommended for him. He will need continued future outpatient cardiovascular follow-up as well (2) HTN (hypertension): PLAN: The patient will need to have his blood pressure monitored with his medicines adjusted accordingly. (3) Smoker: PLAN: The patient has been counseled to avoid nicotine products. Addt'l Comments This note was generated using a voice recognition system and there may be incorrect words, spelling or punctuation that were not noted when reviewing the office note prior to saving.
--- NOTE | 2020-11-17 10:00 | EKG12_ITS ---
Test Reason : AM EKG Blood Pressure : / mmHG Vent. Rate : 050 BPM Atrial Rate : 050 BPM P-R Int : 180 ms QRS Dur : 100 ms QT Int : 466 ms P-R-T Axes : 073 064 261 degrees QTc Int : 424 ms Sinus bradycardia Left ventricular hypertrophy with repolarization abnormality Abnormal ECG When compared with ECG of 16-NOV-2020 13:48, MANUAL COMPARISON REQUIRED, DATA IS UNCONFIRMED Confirmed by HORTENCIA MORENO, MITALI ([id number]), editor magazine RUPESH STRAUSS ([id number]) on 11/19/2020 2:00:53 PM Referred By: Primitivo Hamm Confirmed By:PORTIA BURNETT MD
[2020-11-17 11:00] VITALS: PULSE 59
--- NOTE | 2020-11-17 11:23 | CASEMGMT ---
Addendum entered by Bianca Murry 11/17/20 14:57: Per [facility] retail pharmacy, pt's co-pay for Brilinta is $121.83 and month free trial card applied. Pt already has co-pay card and aware to use. Olvin ROMAN CM Addendum entered by Bianca Murry 11/17/20 14:03: [facility] retail pharmacy aware to call this JESSIE CAGLE with coverage/co-pay once obtained. Olvin ROMAN CM Original Note: Pt to be sent home on Brilinta and this RN CM to room to provide Brilinta co-pay card, pt/ voices understanding. CM to follow with [facility] retail pharmacy once med e-scribed. Pt has questions regarding Humira and brilinta and Sisi, pharmacist, aware and will f/u with pt prior to discharge. Olvin ROMAN CM
--- NOTE | 2020-11-17 11:46 | DS.PCM_ITS ---
Providers Date of Admission: 11/15/20 Primary Care Physician: Dr. Jer Jacobo MD Consultations 11/15/20 08:40 Consult: Hospitalist Routine Consulting Provider: Jer Dockery Reason for Consult: STEMI, Medical management EMERGENT Consult: No MD Notified: Yes Date Notified: 11/15/20 Time Notified: 08:40 Method of Notification: Text Reason For Visit: STEMI Diagnosis Discharge Diagnosis (1) ACS (acute coronary syndrome): Status: Acute Code(s): I24.9 - Acute ischemic heart disease, unspecified (2) HTN (hypertension): Status: Chronic Code(s): I10 - Essential (primary) hypertension (3) Smoker: Status: Acute Code(s): F17.200 - Nicotine dependence, unspecified, uncomplicated Medications at Discharge Home Medications Humira(CF) Pen 40 mg SUBCUT X1 11/15/20 aspirin 81 mg PO DAILYCM #90 tab 11/17/20 atorvastatin 40 mg PO QHS #30 tab 11/17/20 lisinopril 10 mg PO DAILY #30 tab 11/17/20 ticagrelor [Brilinta] 90 mg PO BID #60 tab 11/17/20 Hospital Course Summary of Care Provided Hospital Course: 60-year-old gentleman came to ED with 2 hours of chest pain and found to have inferior wall STEMI in ED. STEMI team was called and patient was immediately taken to [facility] and had successful PCI of mid RPDA and mid RCA. She was admitted in ICU. Patient on aspirin, Brilinta and high intensity statin. 2D echo was done and reported EF 60% with normal diastole. Patient never had DE. He has history of hypertension but not on treatment. Patient is discharged on aspirin, Brilinta, lisinopril, atorvastatin and prescription sent to pharmacy for the same. Patient not candidate for beta-bambi as heart rate is in low 50s. Consider it as an outpatient if heart rate and blood pressure permits. Discharge medication reconciliation done. Discharge follow-up instructions completed. Discharge process discussed with the patient and all questions were answered to patient's satisfaction. Cardiac rehab and automotive mechanical engineer follow-up as per STEMI protocol. Discharge plan discussed with the automotive mechanical engineer, Dr. Pichardo. Total time spent, exact 35 minutes on discharge meds reconciliation, examin ation, coordination of care with nurses and ancillary staff, review of imaging and blood test and discussion with the patient on follow-up instructions Physical Exam Narrative Seen and examined. 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 Blood pressure 135/69, 150/71 Physical exam General: Alert, Oriented x3, Cooperative HEENT: Atraumatic, PERRLA, EOMI, Normocephalic Oral: No Gingival or Mucosal Lesions/ Ulcerations Neck: Supple, No JVD, Negative Carotid Bruits Lungs: Air entry diminished in bilateral lung bases. No crepitation/rhonchi Cardiovascular: Regular rate, Regular Rhythm, Normal S1, Normal S2, No murmurs Abdomen: Bowel Sounds Present, Soft, Non Tender, Non-Distended : No renal angle tenderness. No suprapubic tenderness. Extremities: No edema, Capillary Refill Less than 3 Seconds Skin: No ulcer. History of psoriasis Musculoskeletal: No Tenderness to Palpation of Joints or Extremities Neurological: Cranial nerves II-XII grossly intact, DTR 2+/4 and Symmetrical, Neuro grossly intact Psych/Mental Status: Normal Affect, Appropriate. Medical Records Data Medical Nutrition Assessment Dietitian: Nutrition Therapy Diagnosis Start: 11/15/20 09:44 Freq: Status: Active Protocol: Document 11/15/20 09:51 [facility] (Rec: 11/15/20 09:51 [facility] [id number]) Nutrition Malnutrition Evidence of Malnutrition Exists No Intake Problem None at this time Status Active Problem Clinical Problem None at this time Status Active Problem Recommendation Dietitian Recommendations/Changes Will continue w/ Cardiac Heart Healthy diet Will provide additional diet education at time of follow up as indicated. Weight / BMI Weight Weight: 167 lb 5.294 oz Body Mass Index (BMI) 24.3 ABG / Lab / Microbiology Data Result Diagrams: 11/17/20 06:28 11/16/20 06:32 Laboratory: Laboratory Results - last 24 hr 11/17/20 06:28: WBC 9.7, RBC 4.54 L, Hgb 14.6, Hct 44.0, MCV 96.9 H, MCH 32.2 H, MCHC 33.2, RDW Std Deviation 44.4 H, RDW Coeff of Lori 12.5, Plt Count 269, MPV 9.7 Meaningful Use Info Meaningful Use Diagnoses (Choose all that apply): AMI AMI/Post PCI/Angioplasty Aspirin given w/in 24hrs of arrival?: Yes ASA at discharge?: Yes Antiplatelet Therapy at Discharge:: Yes Statins at discharge?: Yes Tian/ARB at discharge?: Yes Beta Bambi at discharge?: No Reason Beta Bambi not ordered:: Drug Interaction (Bradycardia) Done w/ Acute DE measure.: Yes Documented LVEF (%): 60 Discharge Plan Admission Admit Date/Time: 11/15/20 09:59 Primary Reason for Your Visit: STEMI Attending Provider: Brandon Charles Primary Care Provider: Jer Jacobo Consulting Providers: Jer Dockery Instructions Patient Instructions: ED Chest Pain, Noncardiac Discharge Orders/Prescriptions Prescriptions: New aspirin 81 mg Tablet,Delayed Release (Dr/Ec) 81 mg PO DAILYCM Qty: 90 RF: 0 atorvastatin 40 mg Tablet 40 mg PO QHS Qty: 30 RF: 0 Brilinta 90 mg Tablet 90 mg PO BID Qty: 60 RF: 0 lisinopril 10 mg tablet 10 mg PO DAILY Qty: 30 RF: 1 Continued Humira(CF) Pen 40 mg/0.4 mL pen injector kit 40 mg SUBCUT X1 RF: 0 Referrals / Follow Up: Jer Jacobo MD [Primary Care Provider] - Disposition Disposition (needs filled in before D/C Order can be placed): Home, Self Care Charges/Coding Visit Charges Inpatient E&M: 00894 Disch Hosp
--- NOTE | 2020-11-17 11:46 | PCM.DC ---
Discharge Instructions Diet Discharge Diet: Low fat / Low cholesterol and 2000 mg Sodium Diet Activity Discharge Activity: Return to Normal Activity Dressing / Incision Call your doctor if you observe: Fever of 101 or Higher, Coldness, Increased Pain, Numbness or Tingling, Change in Color, Inability to urinate, Inability to have a bowel movement, Shortness of breath, Dizziness, Fainting spells, Swelling in the ankles, Chest pain, Prolonged hiccupping, Increased palpitations (irregular heartbeat), Calf discomfort and Uncontrolled pain Follow Up Care Test Results: Test results from this visit will be discussed in further detail at your follow-up appointment, if applicable. Discharge Plan Admission Admit Date/Time: 11/15/20 09:59 Primary Reason for Your Visit: STEMI Attending Provider: Brandon Charles Primary Care Provider: Jer Jacobo Consulting Providers: Jer Dockery Instructions Patient Instructions: ED Chest Pain, Noncardiac Discharge Orders/Prescriptions Prescriptions: New aspirin 81 mg Tablet,Delayed Release (Dr/Ec) 81 mg PO DAILYCM Qty: 90 RF: 0 atorvastatin 40 mg Tablet 40 mg PO QHS Qty: 30 RF: 0 Brilinta 90 mg Tablet 90 mg PO BID Qty: 60 RF: 0 lisinopril 10 mg tablet 10 mg PO DAILY Qty: 30 RF: 1 Continued Humira(CF) Pen 40 mg/0.4 mL pen injector kit 40 mg SUBCUT X1 RF: 0 Referrals / Follow Up: Jer Jacobo MD [Primary Care Provider] - Disposition Disposition (needs filled in before D/C Order can be placed): Home, Self Care
[2020-11-17 14:15] VITALS: BP 157/78; PULSE 52; RESP 16; TEMP 36.8; O2SAT 95
--- NOTE | 2020-11-17 14:59 | PHA.DC.MC ---
Pharmacy Service has performed discharge medication reconciliation and counseling for this patient. 1. ASPIRIN 81MG PO DAILYCM 2. ATORVASTATIN 40MG PO QHS 3. LISINOPRIL 10MG PO DAILY 4. TICAGRELOR 90MG PO BID The patient's discharge medication list was reviewed for discrepancies and discrepancies were resolved. Home Medications Humira(CF) Pen 40 mg SUBCUT X1 11/15/20 aspirin 81 mg PO DAILYCM #90 tab 11/17/20 atorvastatin 40 mg PO QHS #30 tab 11/17/20 lisinopril 10 mg PO DAILY #30 tab 11/17/20 ticagrelor [Brilinta] 90 mg PO BID #60 tab 11/17/20 The patient was counseled on the following discharge medications and changes in medications for homegoing were reviewed. The Reason for Use, instructions for use, and potential side effects were reviewed for all new medications. The patient's questions regarding all of their medications were answered. The patient was able to verbally demonstrate an understanding of their discharge medications.
== END 2020-11-17 15:00 | disposition home or self-care (01) | DRG 247 ==
LOC: ED 06:45 → ICU 06:52 → ED 06:52 → ICU 06:53 → ED 06:53 → CLSP 06:53 → ICU 09:02 → PCU 11-17 07:20
PROVIDERS: Emergency Provider Emergency Medicine; PCP Family Medicine; Referring Provider Internal Medicine Interventional Cardiology; Visit Provider Internal Medicine
DX: I24.9 Acute ischemic heart disease, unspecified (principal); I10 Essential (primary) hypertension; L40.50 Arthropathic psoriasis, unspecified; Z79.899 Other long term (current) drug therapy; F17.210 Nicotine dependence, cigarettes, uncomplicated
CPT/HCPCS: 36415; 71045; 80048; 80053; 84484; 85025; 85027; 85610; 85730; 92928; 92929; 92978; 93005; 93306; 93458; 97802; 99285; 99406; C1874; J7030; Q9967; A4216; C1725; C1753; C1769; C1887; C1894; C9600; C9601; J1327; J2405

== ENCOUNTER → 2020-12-02 11:43 | Outpatient (CLI) | payer OTHER, SELFPAY ==
[2020-11-15 10:27] VITALS: BMI 24.3
--- NOTE | 2020-12-02 11:48 | CR.HP_ITS ---
CR - History & Physical - General Arrival date:: 12/02/20 Arrival time:: 11:51 Date of Referral:: 11/18/20 Date of CR Evaluation:: 12/02/20 - Patient not really interested in CR, just wants to return to work. Only doing this because the doctor ordered it. Seeing Dr. Pichardo today. Also stated he just hasn't taking the time to call his insurance to check coverage/co-pay. Hoping doctor just releases him to work. Referring Physician: Dr. César Pichardo Primary Diagnosis: STEMI, PCI w/coronary stenting - History of Present Cardiac Event Onset Date: Enter Onset Date of cardiac illnesses in Comment field below Acute Myocardial Infarction within 12 months:: Yes - STEMI 11/15/2020 PTCA or coronary stenting:: Yes - PCI w/coronary stenting x 3 11/15/2020 Type of Symptoms:: chest pain, vomiting, short of breath, hypertensive emergency Interventions with present event:: Heart cath 3 stents placed in coronary artery Were there any complications?: none - Sleep Disorder Evaluation Hx of Sleep Apnea: No Do you snore loudly (louder than talking or can be heard through closed doors)?: Yes Do you often feel tired/ fatigued/ sleepy during daytime?: Yes - little bit, but not as much since stets were put in. 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: No Living Will: No Advance Directives Information Provided: Yes Advance Directives on File: No DNR Order?:: No - MOLST See MOLST form: No Past Medical History - Covid-19 Screening Fever: No Unexplained muscle aches: No Current respiratory symptoms: No Upper respiratory infections symptoms: No Gastro-intestinal symptoms: No Kui-Lirl-Ovivbs symptoms: No Has tested positive for COVID-19 in last 30 days: No Date of testin07/17/20 - Vocollect COVID-19 Vaccine Had contact w/person w/symptoms or Covid-19 (+) last 14 days: No Has High Risk Exposures ID'd by Health dept/Inf Control team: No 65 years or older:: No Lives in Assisted Living facility:: No Has a chronic lung disease or moderate to severe asthma:: No Has a serious heart condition:: No Immunocompromised:: No Severely obese (Body Mass Index of 40 or higher):: No Diabetic:: No Has chronic kidney disease undergoing dialysis:: No Has liver disease:: No - Past Medical Illness Medical History: Past Medical History (Last Updated 11/18/20 @ 13:15 by Jennifer Salomon) Atherosclerotic heart disease of [place] coronary artery without angina pectoris I25.10 HTN (hypertension) I10 Hypertension I10 Presence of stent in coronary artery Onset Date: ~11/15/20 Z95.5 Successful PCI of mid RPDA, subtotal 99% with WAI 2 flow, delete this predilatation using 2 x 15 mm emerge balloon Followed by placement of drug- eluting stent 2.5 x 22 mm Orsiro stent maintenance of WAI-3 flow in the RPDA B. Use of intravascular ultrasound to determine the diameter of the culprit lesion RCA 5. Successful PCI and stent of proximal to mid RCA with predilatation using 2 x 15 mm Emerge balloon followed by placement of drug-eluting stent 4 x 40 mm overlap with 4 x 18 mm drug-eluting stent/Orsiro Postdilated with 4 x 20 mm NC emerge balloon. With reduction of stenosis from 70% to 0% and maintenance of WAI-3 flow. per cardia cath 11/15/20 Dr. Hamm Psoriasis L40.9 Psoriatic arthritis L40.50 Smoker F17.200 STEMI (ST elevation myocardial infarction) I21.3 - Past Surgical History Surgical History: Past Surgical History (Last Updated 11/18/20 @ 13:15 by Jennifer Salomon) Presence of coronary angioplasty implant and graft Onset Date: ~11/15/20 Z95.5 Successful PCI of mid RPDA, subtotal 99% with WAI 2 flow, delete this predilatation using 2 x 15 mm emerge balloon Followed by placement of drug- eluting stent 2.5 x 22 mm Orsiro stent maintenance of WAI-3 flow in the RPDA B. Use of intravascular ultrasound to determine the diameter of the culprit lesion RCA 5. Successful PCI and stent of proximal to mid RCA with predilatation using 2 x 15 mm Emerge balloon followed by placement of drug-eluting stent 4 x 40 mm overlap with 4 x 18 mm drug-eluting stent/Orsiro Postdilated with 4 x 20 mm NC emerge balloon. With reduction of stenosis from 70% to 0% and maintenance of WAI-3 flow. per cardia cath 11/15/20 Dr. Hamm Social History - Smoking History Smoking Status: Heavy Smoker (>10/day) Years Smokin Packs Smoked per Day: 2 - was down to 1.5 packs Hx Smoking Cessation Date: 11/15/20 Hx Tobacco Use: Yes Hx Smoking Exposure: No - Alcohol Use Alcohol Usage: Yes - current alcohol use, occasionally wll have a beer. But recently no. - Substance Abuse Hx Substance Use: No - Occupation Occupation (List type of work in comments):: Employed Hours worked per day:: 9 - sometimes up to 10 hours - Hobbies, Recreation, Social Activities Hobbies: Sports - boating, skiing, lawn work, Woodworking, Exercise - and I walk occasionally. Recreational Activities: I am able to engage in a few activities Social Environment - Status Marital Status: - Current Living Arrangements Living Environment:: Spouse - Children How many children do you have?: 2 Do any of your children live nearby?: Yes - daughter lives locally - Safety Do you feel safe in your surroundings?: Yes - Assistance Do you need any assistance at home?: no Review of Systems - Review of Systems Hints: Right click = Denies (Slash). Left click = Reports ([place]) Review of Present Symptoms: Reports: Shortness of Breath at Rest - some, Shortness of Breath with Exertion - occasionally if I have done to much, walking up inclines at work., Angina - still experiencing some chest discomfort. IF rest it seems to go away or minimizes., Dizziness/Lightheadedness - bending over and standing back up notice it quite often., Appetite - Normal - to normal!, Sexual Changes. Denies: Heart Arrhythmia/Irregularities, Appetite - Special Diet, Sleep - Normal - Pain Is Patient Pain Free?: Yes Pain Location: none Pain Level: 0/10 Risk Factor Assessment - Chief Complaint Chief Complaint: [address] Dr[address] Pichardo who presented to the emergency room with acute chest pain, vomitting and shortness of breath having an acute myocardial infarction (STEMI). - Vital Signs Temperature: 97.5 F Respiratory Rate: 14 Pulse Ox: 96 Blood Pressure: 104/48 - Pulse Pulse Rate: 56 Pulse Rhythm: Regular - Hypertension Blood Pressure Sitting - Left Arm: 104/48 - Blood Cholesterol/Lipids Total Cholesterol (mg/dL) Goal = less than 200 mg/dL: 160 HDL Cholesterol (mg/dL) Goal = less than 40 mg/dL: 35 LDL Cholesterol (mg/dL) Goal = less than 70 mg/dL: 97 Triglycerides (mg/dL) Goal = less than 150 mg/dL: 139 - Obesity Height: 5 ft 10 in Weight:: 167 lb Weight in Pounds: 167.0 lbs Weight Source: Standing Scale Body Mass Index (BMI): 23.9 Nutritional Referral for Obesity: No - Physical Inactivity Physical Inactivity: Recreational activity - Risk Stratification Risk Guidelines: Lowest Risk: Risk Factor for Dyslipidemia, Risk Factor for Diabetes, Risk Factor for Obesity, Risk Factor for Hypertension, Risk Factor for Sedentary Lifestyle, Risk Factor for Depression, Highest Risk: Risk Factor for Smoking Motivation - Motivation to Participate On a scale of 1 to 10, how prepared are you to commit to attending program?: 7 What do you see as barriers to successfully being able to complete the program?: work schedule What do you see as the benefits of succesfully completing the program? In other words, what do you hope to get out of participating in the program?: healthiier stronger get back to work Are there issues you are dealing with that will interfere with completing the program?: no Do you have a spouse or signficant other, family or friends who will help support you to complete the program?: yes
--- NOTE | 2020-12-02 11:48 | PCM.CR.ITP ---
Diagnosis - General Information Admitting Diagnosis: STEMI PCI w/coronary stenting x 3. Secondary Diagnosis: Hypertension, ischemic heart disease Personal Learning Style:: Written Barriers to Learning: Vision Impairment Stage of change r/t lifestyle modifications:: Contemplation - Wants to return to work in [employer] [place], not really interested in CR, just what the doctor ordered him. Gave educational material for:: Treating Heart Disease, Emotions & Heart Disease, Stress Management & Relaxation, Sleep Disorders & Heart Disease, How The Heart Works, What it means to have Heart Disease, How Coronary Artery Disease is Diagnosed, Heart Procedures, What Heart Medications Do, Risk Factors & Modifications, Living an Active Life, Nutrition - Education/Goals Individual Counseling: Initial Assessment: Abnormal Cholesterol Levels, High Blood Pressure Cardiac Rehabilitation Goals: 1. Maintain the individual as the primary focus of care. 2. To improve the patient's quality of life. 3. Identification of cardiac risk factors and provide cardiac risk factor management. 4. Enhance the psychosocial status of the patient. 5. Reconditioning enough to allow the patient to resume customary activities. 6. Control symptoms of cardiac disease Personal Goals: Initial Assessment: Quit smoking (participate in smoking cessation, Improve management of stress and emotions, Improve energy level, Participate in home exercise program, Get back to work, or to resume activities faster, Improve muscle strength and endurance, Control risk factors (learn risk factor modification) Scale for measuring improvement of personal goals: Enter appropriate number in Comments. 2 = Unchanged. 3 = Slightly Better. 4 = Moderate Improvement. 5 = Met my Goal - Diagnosis & Disease Process Outcomes/Goals: Pt IDs own risk factors & lifestyle modifications by Session 10, Verbalizes symptoms of angina & response by session 3., Pt independently manages Plan/Interventions: Assist Pt to ID & engage in lifestyle modification to reduce CVD risk, Instruct on individual risk factors, Review symptoms of angina & emergency actions, Review secondary diagnosis & identify educational needs. - Safety Referral to Physical Therapy: No Referral to [facility] Case Management: No Fall Risk Assessed:: Yes Assistive Devices:: None Exercise - Initial Assessment - Visit Date of Eval: 12/02/20 - Patient not really interested in CR, just wants to return to work. Only doing this because the doctor ordered it. Seeing Dr. Pichardo today. Also stated he just hasn't taking the time to call his insurance to check coverage/co-pay. Hoping doctor just releases him to work. Session #:: 0 - pre-cardiac reheab evaluation Mets: Pre-: >7 METS for 30 minutes by discharge - Physician Prescribed Exercise Modalities: Treadmill, Rower, Airdyne Frequency: 3x/week for 12 weeks [36 sessions] Intensity: 60-80% of age predicted maximum heart rate reserve Current METSs:: 4.0 Target Heart Rate:: 103-135 Resting Blood Pressure: 135/69 EKG Type: Sinus Bradycardia - Outcomes & Goals Goals:: Verbalizes understanding of THR, RPE & goal METS by session 6, Documents in home exercise log/reports 30 min aerobic 5 day/wk by DC, Demonstrates accurate pulse taking by DC - Intervention & Plan Exercise Program Goals: Instruct on personal THR & RPE, Instruct on MET level & personal MET goal, Show patient to take own pulse /validate performance until accurate, Instruct on home exercise - Physical Activity Home Exercise Physical Activity - Home Exercise: Safe Exercise, Warm-up, Self-monitoring, Cool-Down, Home Exercise > 30 min Daily, Sitting Time <3 hours/daily - Outcomes & Goals Outcomes/Goals: Demonstrates correct Warm-up/exercise Cool-Down (S3) if = 2.5 METs, Verbalizes symptoms of exercise intolerance by Session 3 (S3), Demonstrate safe equipment use (S3) & follows exercise prescrition (6) - Intervention & Plan Plan/Intervention: Instruct warm-up & cool-down if exercising at > 2 METs, Instruct on symptoms of exercise intolerance & actions to take, Instruct & monitor on saf, Assess intial functional capacity & safety risk Nutrition - Initial Assessment - Program Goals Nutrition Program Goals: LDL <100 optimal. 100 - 129 Near optimal. 130 - 159 Borderline High. 160 - 189 High. Total Cholesterol <200 desirable. 200 - 239 Borderline High. >/= 240 High. HDL < 40 Low >/=60 High. Triglycerides <150 desirable. <199 optimal. VlDL 5 - 40. HgbA1C <7%. BMI <25 Patient has diagnosis of Hyperlipidemia (ICD E78)?: Yes - Visit Date of Assessment:: 12/02/20 Session #:: 0 - Pre-cardiac rehab evaluation - Cholesterol/Lipids Triglycerides (mg/dL): 139 Total Cholesterol (mg/dL): 160 LDL Cholesterol (mg/dL): 97 HDL Cholesterol (mg/dL): 35 Determine presence & major risk factors that modify LDL goal: Cigarette smoking, Hypertension or hypertensive medication, Low HDL cholesterol <40 mg/dL*, Family history of premature CHD in Male < 55 years: female <65 yearsFa, Age men > 45 years; women >/= 55 years Outcomes/Goals: Pt IDs own risk factors & lifestyle modifications by Session 10, Verbalizes symptoms of angina & response by session 3., Pt independently manages Intervention/Plan: Instruct on personal lipid levels & lipid goals/NCEP guidelines, Instruct on cholesterol Referral to dietitian:: Yes - Medical Nutrition Therapy - Diabetes (Other Core Measures) Diabetes Type: Not Applicable - Weight Mgt (Other Care) Not Applicable: Yes Height: 5 ft 10 in Weight:: 167 lb BMI: 23.9 Diagnosis Overweight/Obesity BMI> 30% ICD-10 E66: No Diagnosis High BMI/Morbid Obesity BMI> 35% ICD-10 Z68: No Outcomes/Goals: Pt sets, maintains & shows weight loss goal & trend during rehab Intervention/Plan: Instruct on ideal BMI & set weight loss goal w/patient - Healthy Eating Habits Will attend diet classes:: Yes Outcomes/Goals:: Consume diet rich in vegs,fruits,whole grain/high fiber,fish,lean meat, Limit sat/trans fats,cholesterol & added salts & sugars Intervention/Plan:: Assess current eating habits - Education Gave educational materials for:: Healthy eating Nutrition - 30-Day Assessment Nutrition - 60-Day Assessment Nutrition - 90-Day Assessment Nutrition - Final Assessment Medical - Initial Assessment - Visit Date of Eval: 12/02/20 Session #:: 0 - Pre-cardiac rehab evaluation - Medication Compliance Preventative Medication(s):: Aspirin, Ticagrelor/P2Y12 inhibitor, Statin/lipid, Beta mark H/O mental health issues: depression, anxiety, or addiction?: No Doesn?t believe in the benefits of treatment?: No Believes medications are unnecessary or harmful?: No Has a concern about medication side effects?: No Expresses concern over the cost of medications?: No Outcomes/Goals: Verbalizes medications,desired effect & common side effects @ DC, Pt self-reports following medication regimen, Keeps card in wallet w/medications listed by DC Interventions/plans: Instruct on medication effects & side effects, Review medication list w/patient every two weeks, Instruct importance of taking meds as ordered & assist problem solving - Tobacco Use Tobacco Use: Cigarettes How many cigarettes do you smoke per day?: 0 - >10 Heavy smoker Do you use smokeless tobacco?: No Outcomes/Goals: Smoking cessation achieved or maintained by discharge, Identify aids/strategies for achieving smoking cessation by session 6 Interventions/plan: Instruct on effects of smoking & provide smoking cessation resource, Assist pt to set quit date & provide encouragement, Assist pt to develop strategies to achieve/maintain quit date, Assist pt w/nicotine replacement & medication for cessation success - Hypertension Hypertension Diagnosis:: Hypertension ICD-10 I10 Resting Blood Pressure:: 135/69 [place] [employer] Hypertension Guidelines: [place] [employer] Hypertension Guidelines. Normal BP Less than 120/80. Elevated BP 120/80. Hypertension Stage 1: BP 130-139/80-89. Hypertesnion Stage 2: BP 140 or higher/90 or higher. Hypertension Crisis: BP higher than 180/120 Outcomes/Goals: Able to verbalize/achieve optimal blood pressure <130/80, Incorporates diet changes & exercise for blood pressure control by DC Interventions/plan: Instruct on optimal blood pressure, hypertension & medications, Instruct on effects of sodium, alcohol, stress, exercise &hypertension - Tobacco Cessation Referral Smoking Cessation Referral:: Yes Individual Education/Counseling:: Yes Education Schedule Given:: Yes Medical- 30-Day Assessment Medical- 60-Day Assessment Medical- 90-Day Assessment Medical - Final Assessment Psychosocial - Initial Assess - VIsit Date of Eval: 12/02/20 Session #:: 0 - Pre-cardiac rehab evaluation Not Applicable: Yes History of previous Mental disease:: No - Psychosocial Test Tool Used:: Yo que Vos QOL Cardiac, PHQ-9 Questionnaire phq-9 Severity: Severity. 1-4 Minimal Depression. 5-9 Mild Depression. 10-14 Moderate Depression. 15-19 Moderately Sever Depression. 20-27 Severe Depression. Rule: See PHQ-9 Score: 9 - mild depression - Referral to Behavioral Health PS - Interventions: Yes Attend Stress Management Classes, No Referral to Behavioral Health if PHQ-9 score >9:, No Referral to [facility], No Referral to Physician if PHQ-9 if score is 5-9: - Patient mildly depressed - Outcomes/Goals: See list Psychosocial Outcomes/Goals:: ID's personal stressors & 2 strategies to manage stress by discharge - Intervention/Plan: See List Interventions/Plan:: Assess stressors,coping strategies & signs of derpression on admission, Instruct/assist pt to develop coping & personal stress Mgt strategies, Instruct patient to recognize signs & symptoms of depression, Instruct patient to recog Psychosocial - 30-Day Assess Psychosocial - 60-Day Assess Psychosocial - 90-Day Assess Psychosocial - Final Assessmen Patient Health Questionnaire Initial Assessment 1. Little interest or pleasure in doing things: Several days 2. Feeling down, depressed, or hopeless: Several days 3. Trouble falling or staying asleep, or sleeping too much: More than half the days 4. Feeling tired or having little energy: Several days 5. Poor appetite or overeating: More than half the days 6. Feeling bad about yourself -- or that you are a failure or have let yourself or your family down: Several days 7. Trouble concentrating on things, such as reading the newspaper or watching television: Not at all 8. Moving or speaking so slowly that other people could have noticed. Or the opposite - being so fidgety or restless that you have been moving around a lot more than usual: Several days 9. Thoughts that you would be better off , or of hurting yourself in some way: Not at all How difficult have these problems made it for you to do your work, take care of things at home, or get along with other people?: Not difficult at all Total Score: 9 MARITO-Q SV Test - Statements CAD is a disease of the arteries in the heart: False Examples of risk factors for heart disease: True Angina is chest pain or discomfort: I Don't Know The benefits of resistance training include: True Eating more meat and dairy products: I Don't Know Anti-platelet medications such as aspirin are important: True The only effective way to manage stress: I Don't Know An exercise warm-up slowly increases heart rate: I Don't Know Prepared, processed foods usually have high sodium: True Depression is common after a heart attack: I Don't Know The statin medications lower cholesterol: True To control blood pressure, lower the amount of sodium: I Don't Know If someone gets chest discomfort during walking: False Transfats are partially hydrogenated vegetable oils: I Don't Know Sleep apnea that is not treated increases the risk: I Don't Know To control cholesterol, one should become a vegetarian: I Don't Know Someone knows if he/she is exercising at the right level: I Don't Know Diabetes cannot be prevented with exercise & health eating: I Don't Know Stress is a large risk for heart attack: True A diet that can help lower blood pressure is rich in: I Don't Know - Total Score Total Correct Responses: 8 Self-Efficacy Initial Assessment We would like to know how confident you are in doing certain activities. Please select your confidence level for:: Select your confidence level for the following using the scale 1-10 where 1 is not at all confident and 10 is totally confident. Your score is the average of all 6 responses. Fatigue: How confident are you that you can keep the fatigue caused by your disease from interfering with the things you want to do? Select Number: 3 Physical Discomfort or Pain: How confident are you that you can keep the physical discomfort or pain of your disease from interfering with the things you want to do? Select Number: 3 Emotional Distress: How confident are you that you can keep the emotional distress caused by your disease from interfering with the things you want to do? Select Number: 7 Other Symptoms or Health Problems: How confident are you that you can keep other symptoms or health problems from interfering with the things you want to do? Select Number: 6 Different Tasks and Activities: How confident are you that you can do the different tasks and activities needed to manage your health condition so as to reduce your need to see a doctor? Select Number: 6 Medication: How confident are you that you can do things other than just taking medication to reduce how much your illness affects your everyday life? Select Number: 6 Total Score:: 5 Nutrition Survey - Nutrition Survey Initial Have you lost >10 lbs over the past 2 months without trying?: No Are you following a special diet at home for diabetes, low fat, or low salt?: No Are you interested in meeting with a dietitian for help understanding your diet?: No Do you eat less than 3 meals a day?: Yes Do you eat fatty meats (monroe, sausage, ribs, etc), fried foods, desserts, large amounts of salad dressings, margarine, butter, or cheese most days?: Yes Do you have food allergies? [Enter types in comment field]: No Do you eat in restaurants more than 3 times a week?: No Do you season food with salt, seasoning salt, or garlic salt?: Yes Do you used canned, boxed, frozen meals, or soups, seasoning packets?: Yes Total Score:: 4
[2020-12-02 12:09] VITALS: BP 135/69; BMI 23.9
[2020-12-02 12:48] VITALS: BP 104/48; PULSE 56; RESP 14; TEMP 36.4; O2SAT 96; BMI 23.9
== END ==
PROVIDERS: PCP Family Medicine; Referring Provider Internal Medicine Cardiovascular Disease; Visit Provider Internal Medicine Cardiovascular Disease
DX: I10 Essential (primary) hypertension (principal); I25.10 Atherosclerotic heart disease of native coronary artery without angina pectoris

== ENCOUNTER → 2020-12-06 07:47 | Outpatient (CLI) | payer OTHER, SELFPAY ==
[2020-12-02 12:09] VITALS: BMI 23.9
[2020-12-06 09:27] LABS: AST(SGOT) 21 U/L (15-37); Alanine Aminotransfer ALT/SGPT 43 U/L (16-61); Albumin, Serum 3.9 g/dL (3.2-5.0); Alkaline Phosphatase 70 U/L (45-117); Cholesterol 82 mg/dL (200); Globulin 3.4 g/dL (2.2-4.2); High Density Lipoprotein 34 mg/dL; Protein, Total 7.3 g/dL (6.4-8.2); Triglycerides 73 mg/dL; Very Low Density Lipoprotein 15 mg/dL (5-40)
== END ==
PROVIDERS: PCP Family Medicine; Visit Provider Nurse Practitioner Family
DX: I25.10 Atherosclerotic heart disease of native coronary artery without angina pectoris (principal); I10 Essential (primary) hypertension; Z95.5 Presence of coronary angioplasty implant and graft; Z72.0 Tobacco use
CPT/HCPCS: 36415; 80061; 80076

== ENCOUNTER → 2020-12-17 06:23 | Outpatient (CLI) | payer OTHER, SELFPAY ==
[2020-12-02 12:09] VITALS: BMI 23.9
--- NOTE | 2020-12-17 15:02 | STRESSREP_ITS ---
Stress Test Report Date: 12-17-2020 Procedure: Exercise tolerance test/imaging study Indications: Chest pain, CAD, status post PCI Consent: Per the patient Procedure: The patient exercised on a Nikolas protocol for 5 minutes and 40 seconds completing Stage I and 1 minute and 40 seconds of Stage II achieving a peak heart rate of 117 bpm (73% predicted maximal heart rate) with a peak blood pressure 212/84 mmHg and a peak MET capacity of 7 METs. The baseline ECG demonstrated sinus bradycardia; consider voltage criteria for LVH; ST/T wave abnormality. The peak exercise ECG demonstrated somatic/motion artifact with no obvious ECG changes. There was an isolated PVC during exercise. The functional capacity was considered decreased. There was no complaint of chest discomfort during exercise or recovery. The examination was discontinued secondary to dyspnea and fatigue. Impression: 1. Technically inadequate (percent predicted maximal heart rate less than 85%) exercise tolerance test 2. Peak exercise ECG with somatic/motion artifact with no obvious ECG changes at the heart rate achieved 3. There was an isolated PVC during exercise 4. Blood pressure response: Resting hypertension-exaggerated response 5. Nuclear images pending Myocardial perfusion imaging study: Technique: The patient was injected with 11.3 mCi of technetium 99m Cardiolite and subsequently rest SPECT Cardiolite nuclear imaging was obtained in the horizontal long, vertical long, and short axis views. The patient exercised on a Nikolas protocol for 5 minutes and 40 seconds completing Stage I and 1 minute and 40 seconds of Stage II achieving a peak heart rate of 117 bpm (73% predicted maximal heart rate) with a peak blood pressure 212/84 mmHg and a peak MET capacity of 7 METs. The patient was injected with 33.7 mCi of technetium 99m Cardiolite and subsequently stress SPECT Cardiolite nuclear imaging was obtained in the horizontal long, vertical long, and short axis views. A gated Cardiolite study at peak stress was obtained. Interpretation: Rest and stress SPECT Cardiolite nuclear imaging status post realignment, normalization, and attenuation correction, demonstrates the appearance of relative uniform tracer uptake and myocardial perfusion appearing within normal limits. There is end systolic thickening and brightening. The gated Cardiolite study demonstrates myocardial thickening and inward wall motion. The reported LVEF is 66%. Impression: 1. Rest and stress SPECT Cardiolite nuclear imaging demonstrate relative uniform tracer uptake and myocardial perfusion appearing within normal limits at the heart rate achieved. 2. The gated Cardiolite study reports an LVEF of 66%. This note was generated with [employer]ation software. It may contain incorrect words, spelling, and punctuation that were not noted in checking the note before signing.
== END ==
PROVIDERS: PCP Family Medicine; Referring Provider Nurse Practitioner Family; Visit Provider Nurse Practitioner Family
DX: I25.10 Atherosclerotic heart disease of native coronary artery without angina pectoris (principal); I10 Essential (primary) hypertension; R07.9 Chest pain, unspecified; Z95.5 Presence of coronary angioplasty implant and graft; Z72.0 Tobacco use
CPT/HCPCS: 78452; 93017; A9500; Q9957; A4216; J3490

== ENCOUNTER 2021-01-07 15:08 | Outpatient (RCR) | payer OTHER, SELFPAY ==
[2020-12-02 12:09] VITALS: BMI 23.9
== END 2021-01-08 23:59 ==
LOC: CR 15:08
PROVIDERS: PCP Family Medicine; Referring Provider Internal Medicine Cardiovascular Disease; Visit Provider Internal Medicine Cardiovascular Disease
DX: I25.10 Atherosclerotic heart disease of native coronary artery without angina pectoris (principal); Z95.5 Presence of coronary angioplasty implant and graft
CPT/HCPCS: 93798

== ENCOUNTER → 2021-02-02 11:50 | Outpatient (CLI) | payer OTHER, SELFPAY ==
[2021-01-30 07:23] VITALS: BMI 24.9
--- NOTE | 2021-02-02 11:52 | RAD_ITS ---
STUDY: X-RAY - ACUTE ABDOMINAL SERIES REASON FOR EXAM: Male, 60 years old. GASEOUS ABD DISTENTION TECHNIQUE: Single view of the chest. Supine, and erect view(s) of the abdomen were obtained. COMPARISON: Comparison is made with prior chest radiograph dated 11/15/2020 FINDINGS: Hyperinflation. The lungs are clear. Normal size heart. Normal mediastinum and michelle. Normal visualized pulmonary arteries. There is atherosclerotic calcification of the aortic arch with tortuosity. There is an abundance of fecal material throughout the colon. The soft tissue structures of the abdomen and pelvis are unremarkable. There are diffuse degenerative changes of the visualized lumbar spine. RAD/Acute Abdomen Inc Chest IMPRESSION: Large amount of fecal material is seen in the colon. Electronically Signed: Alfonzo Joel MD at 12:32 EDT , Service support ,
== END ==
PROVIDERS: PCP Family Medicine; Referring Provider Family Medicine; Visit Provider Family Medicine
DX: R14.0 Abdominal distension (gaseous) (principal)
CPT/HCPCS: 74022

== ENCOUNTER 2021-02-04 15:45 | Outpatient (RCR) | payer OTHER, SELFPAY ==
[2020-12-02 12:09] VITALS: BMI 23.9
--- NOTE | 2021-01-30 07:10 | PCM.CR.ITP ---
Diagnosis Exercise - 30-day Assessment - Visit Date of Eval: 01/30/21 Session #:: 11 - Tod started his CR on 01/05/2021 - Physician Prescribed Exercise Modalities: Treadmill, Airdyne, NuStep Frequency: 3x/week for 12 weeks [36 sessions] Intensity: 60-80% of age predicted maximum heart rate reserve Current METSs:: 5.0 increase from 3.5 Target Heart Rate:: 103-135 Current RPE:: 13-14 Maximum Excercise HR:: 106 Resting Blood Pressure: 132/56 Maximum Exercise Blood Pressure: 200/78 EKG Type: Sinus eloy to sinus tachycardia PAC and PVC noted. T wave inversion Current Physical Activity or Exercising minutes: 44 - Outcomes & Goals Goals:: Verbalizes understanding of THR, RPE & goal METS by session 6, Documents in home exercise log/reports 30 min aerobic 5 day/wk by DC, Demonstrates accurate pulse taking by DC - Intervention & Plan Exercise Program Goals: Instruct on personal THR & RPE, Instruct on MET level & personal MET goal, Show patient to take own pulse /validate performance until accurate, Instruct on home exercise - 30-day Reassessments 30 day Reassessments:: Progressing - Physical Activity Home Exercise Physical Activity - Home Exercise: Safe Exercise, Warm-up, Self-monitoring, Cool-Down, Home Exercise > 30 min Daily, Sitting Time <3 hours/daily - Outcomes & Goals Outcomes/Goals: Demonstrates correct Warm-up/exercise Cool-Down (S3) if = 2.5 METs, Verbalizes symptoms of exercise intolerance by Session 3 (S3), Demonstrate safe equipment use (S3) & follows exercise prescrition (6) - Intervention & Plan Plan/Intervention: Instruct warm-up & cool-down if exercising at > 2 METs, Instruct on symptoms of exercise intolerance & actions to take, Instruct & monitor on saf, Assess intial functional capacity & safety risk - 30-day Reassessments 30 day Reassessments:: Progressing Nutrition - Initial Assessment Nutrition - 30-Day Assessment - Program Goals Nutrition Program Goals: LDL <100 optimal. 100 - 129 Near optimal. 130 - 159 Borderline High. 160 - 189 High. Total Cholesterol <200 desirable. 200 - 239 Borderline High. >/= 240 High. HDL < 40 Low >/=60 High. Triglycerides <150 desirable. <199 optimal. VlDL 5 - 40. HgbA1C <7%. BMI <25 Patient has diagnosis of Hyperlipidemia (ICD E78)?: Yes - Visit Date of Assessment:: 01/30/21 Session #:: 11 - Cholesterol/Lipids Triglycerides (mg/dL): 139 Total Cholesterol (mg/dL): 160 LDL Cholesterol (mg/dL): 97 HDL Cholesterol (mg/dL): 35 Determine presence & major risk factors that modify LDL goal: Cigarette smoking, Hypertension or hypertensive medication, Low HDL cholesterol <40 mg/dL*, Family history of premature CHD in Male < 55 years: female <65 yearsFa, Age men > 45 years; women >/= 55 years Outcomes/Goals: Pt IDs own risk factors & lifestyle modifications by Session 10, Verbalizes symptoms of angina & response by session 3., Pt independently manages Intervention/Plan: Instruct on personal lipid levels & lipid goals/NCEP guidelines, Instruct on cholesterol Referral to dietitian:: No - After nutrition spoke to the patient, he declined. 30-day Reassessments:: Progressing - Diabetes (Other Core Measures) Diabetes Type: Not Applicable - Weight Mgt (Other Care) Not Applicable: Yes Height: 5 ft 10 in Weight:: 173 lb 8 oz BMI: 24.9 Diagnosis Overweight/Obesity BMI> 30% ICD-10 E66: No Diagnosis High BMI/Morbid Obesity BMI> 35% ICD-10 Z68: No Outcomes/Goals: Pt sets, maintains & shows weight loss goal & trend during rehab Intervention/Plan: Instruct on ideal BMI & set weight loss goal w/patient 30 day Reassessments:: Met - Healthy Eating Habits Will attend diet classes:: Yes Outcomes/Goals:: Consume diet rich in vegs,fruits,whole grain/high fiber,fish,lean meat, Limit sat/trans fats,cholesterol & added salts & sugars Intervention/Plan:: Assess current eating habits 30-day Reassessments:: Progressing - Education Gave educational materials for:: Healthy eating Nutrition - 60-Day Assessment Nutrition - 90-Day Assessment Nutrition - Final Assessment Medical - Initial Assessment Medical- 30-Day Assessment - Visit Date of Eval: 01/30/21 Session #:: 11 - Medication Compliance Preventative Medication(s):: Aspirin, Ticagrelor/P2Y12 inhibitor, Statin/lipid, Beta mark H/O mental health issues: depression, anxiety, or addiction?: No Doesn?t believe in the benefits of treatment?: No Believes medications are unnecessary or harmful?: No Has a concern about medication side effects?: No Expresses concern over the cost of medications?: No Outcomes/Goals: Verbalizes medications,desired effect & common side effects @ DC, Pt self-reports following medication regimen, Keeps card in wallet w/medications listed by DC Interventions/plans: Instruct on medication effects & side effects, Review medication list w/patient every two weeks, Instruct importance of taking meds as ordered & assist problem solving 30-day Reassessments:: Progressing - Tobacco Use Tobacco Use: Cigarettes How many cigarettes do you smoke per day?: 20 - light smoker <10/day Years Smokin Do you use smokeless tobacco?: No Outcomes/Goals: Smoking cessation achieved or maintained by discharge, Identify aids/strategies for achieving smoking cessation by session 6 Interventions/plan: Instruct on effects of smoking & provide smoking cessation resource, Assist pt to set quit date & provide encouragement, Assist pt to develop strategies to achieve/maintain quit date, Assist pt w/nicotine replacement & medication for cessation success 30-day Reassessments:: Not Met Reassessment Notes & Comments:: Patient is still smoking about a pack/day. He has not started the [facility] smoking cessation program, we will send another referral. - Hypertension Hypertension Diagnosis:: Hypertension ICD-10 I10 Resting Blood Pressure:: 132/56 [place] [employer] Hypertension Guidelines: [place] [employer] Hypertension Guidelines. Normal BP Less than 120/80. Elevated BP 120/80. Hypertension Stage 1: BP 130-139/80-89. Hypertesnion Stage 2: BP 140 or higher/90 or higher. Hypertension Crisis: BP higher than 180/120 Peak Exercise Blood Pressure:: 200/78 Outcomes/Goals: Able to verbalize/achieve optimal blood pressure <130/80, Incorporates diet changes & exercise for blood pressure control by DC Interventions/plan: Instruct on optimal blood pressure, hypertension & medications, Instruct on effects of sodium, alcohol, stress, exercise &hypertension 30 day Reassessments:: Progressing - Tobacco Cessation Referral Smoking Cessation Referral:: Yes Individual Education/Counseling:: Yes - Smoking Cessation Education Schedule Given:: Yes - Online Resources and printed workbook provided to patient Medical- 60-Day Assessment Medical- 90-Day Assessment Medical - Final Assessment Psychosocial - Initial Assess Psychosocial - 30-Day Assess - VIsit Date of Eval: 01/30/21 Session #:: 11 Not Applicable: Yes History of previous Mental disease:: No - Psychosocial Test Tool Used:: PHQ-9 Questionnaire phq-9 Severity: Severity. 1-4 Minimal Depression. 5-9 Mild Depression. 10-14 Moderate Depression. 15-19 Moderately Sever Depression. 20-27 Severe Depression. Rule: - Referral to Behavioral Health PS - Interventions: Yes Attend Stress Management Classes, No Referral to Behavioral Health if PHQ-9 score >9:, No Referral to [facility], No Referral to Physician if PHQ-9 if score is 5-9: - Outcomes/Goals: See list Psychosocial Outcomes/Goals:: ID's personal stressors & 2 strategies to manage stress by discharge - Intervention/Plan: See List Interventions/Plan:: Assess stressors,coping strategies & signs of derpression on admission, Instruct/assist pt to develop coping & personal stress Mgt strategies, Instruct patient to recognize signs & symptoms of depression, Instruct patient to recog - 30-day Reassessments: 30 day Reassessments:: Progressing Psychosocial - 60-Day Assess Psychosocial - 90-Day Assess Psychosocial - Final Assessmen Patient Health Questionnaire 30-Day Re-eval Assessment 1. Little interest or pleasure in doing things: Several days 2. Feeling down, depressed, or hopeless: Several days 3. Trouble falling or staying asleep, or sleeping too much: More than half the days 4. Feeling tired or having little energy: Several days 5. Poor appetite or overeating: More than half the days 6. Feeling bad about yourself -- or that you are a failure or have let yourself or your family down: Several days 7. Trouble concentrating on things, such as reading the newspaper or watching television: Not at all 8. Moving or speaking so slowly that other people could have noticed. Or the opposite - being so fidgety or restless that you have been moving around a lot more than usual: Not at all 9. Thoughts that you would be better off , or of hurting yourself in some way: Not at all How difficult have these problems made it for you to do your work, take care of things at home, or get along with other people?: Not difficult at all Total Score: 8 Self-Efficacy 30-Day Re-eval Assessment We would like to know how confident you are in doing certain activities. Please select your confidence level for:: Select your confidence level for the following using the scale 1-10 where 1 is not at all confident and 10 is totally confident. Your score is the average of all 6 responses. Fatigue: How confident are you that you can keep the fatigue caused by your disease from interfering with the things you want to do? Select Number: 5 Physical Discomfort or Pain: How confident are you that you can keep the physical discomfort or pain of your disease from interfering with the things you want to do? Select Number: 5 Emotional Distress: How confident are you that you can keep the emotional distress caused by your disease from interfering with the things you want to do? Select Number: 9 Other Symptoms or Health Problems: How confident are you that you can keep other symptoms or health problems from interfering with the things you want to do? Select Number: 7 Different Tasks and Activities: How confident are you that you can do the different tasks and activities needed to manage your health condition so as to reduce your need to see a doctor? Select Number: 7 Medication: How confident are you that you can do things other than just taking medication to reduce how much your illness affects your everyday life? Select Number: 8 Total Score:: 6 Nutrition Survey
[2021-01-30 07:23] VITALS: BP 132/56; BP 200/78; BMI 24.9
== END 2021-02-08 23:59 ==
LOC: CR 15:45
PROVIDERS: PCP Family Medicine; Referring Provider Internal Medicine Cardiovascular Disease; Visit Provider Internal Medicine Cardiovascular Disease
DX: I25.10 Atherosclerotic heart disease of native coronary artery without angina pectoris (principal); Z95.5 Presence of coronary angioplasty implant and graft
CPT/HCPCS: 93798

== ENCOUNTER 2021-03-09 15:45 | Outpatient (RCR) | payer OTHER, SELFPAY ==
[2021-01-30 07:23] VITALS: BMI 24.9
[2021-02-09 00:08] VITALS: BP 132/56; BP 200/78
--- NOTE | 2021-03-02 13:09 | PCM.CR.ITP ---
Diagnosis Exercise - 60-day Assessment - Visit Date of Eval: 03/02/21 Session #:: 23 - Physician Prescribed Exercise Modalities: Treadmill, Airdyne, NuStep Frequency: 3x/week for 12 weeks [36 sessions] Intensity: 60-80% of age predicted maximum heart rate reserve Current METSs:: 5.5 unchanged due to recent down sloping of ST segment, Dr. gross. Target Heart Rate:: 103-135 Current RPE:: 13-14 Maximum Excercise HR:: 111 Resting Blood Pressure: 150/70 Maximum Exercise Blood Pressure: 190/70 EKG Type: NST to sinus tach. Rare PAC PVC. T wave inversion. ST down sloping noted - Outcomes & Goals Goals:: Verbalizes understanding of THR, RPE & goal METS by session 6, Documents in home exercise log/reports 30 min aerobic 5 day/wk by DC, Demonstrates accurate pulse taking by DC - Intervention & Plan Exercise Program Goals: Instruct on personal THR & RPE, Instruct on MET level & personal MET goal, Show patient to take own pulse /validate performance until accurate - 30-day Reassessments 30 day Reassessments:: Progressing - Physical Activity Home Exercise Physical Activity - Home Exercise: Safe Exercise, Warm-up, Self-monitoring, Cool-Down, Home Exercise > 30 min Daily, Sitting Time <3 hours/daily - Outcomes & Goals Outcomes/Goals: Demonstrates correct Warm-up/exercise Cool-Down (S3) if = 2.5 METs, Verbalizes symptoms of exercise intolerance by Session 3 (S3), Demonstrate safe equipment use (S3) & follows exercise prescrition (6) - Intervention & Plan Plan/Intervention: Instruct warm-up & cool-down if exercising at > 2 METs, Instruct on symptoms of exercise intolerance & actions to take, Instruct & monitor on saf, Assess intial functional capacity & safety risk - 30-day Reassessments 30 day Reassessments:: Progressing Nutrition - Initial Assessment Nutrition - 30-Day Assessment Nutrition - 60-Day Assessment - Program Goals Nutrition Program Goals: LDL <100 optimal. 100 - 129 Near optimal. 130 - 159 Borderline High. 160 - 189 High. Total Cholesterol <200 desirable. 200 - 239 Borderline High. >/= 240 High. HDL < 40 Low >/=60 High. Triglycerides <150 desirable. <199 optimal. VlDL 5 - 40. HgbA1C <7%. BMI <25 Patient has diagnosis of Hyperlipidemia (ICD E78)?: Yes - Visit Date of Assessment:: 03/02/21 Session #:: 23 - Cholesterol/Lipids Triglycerides (mg/dL): 139 Total Cholesterol (mg/dL): 160 LDL Cholesterol (mg/dL): 97 HDL Cholesterol (mg/dL): 35 Determine presence & major risk factors that modify LDL goal: Cigarette smoking, Hypertension or hypertensive medication, Low HDL cholesterol <40 mg/dL*, Family history of premature CHD in Male < 55 years: female <65 yearsFa, Age men > 45 years; women >/= 55 years Outcomes/Goals: Pt IDs own risk factors & lifestyle modifications by Session 10, Verbalizes symptoms of angina & response by session 3., Pt independently manages Intervention/Plan: Instruct on personal lipid levels & lipid goals/NCEP guidelines, Instruct on cholesterol Referral to dietitian:: No - After speaking with client they indicated not interested. 30-day Reassessments:: Progressing - Diabetes (Other Core Measures) Diabetes Type: Not Applicable - Weight Mgt (Other Care) Height: 5 ft 10 in Weight:: 172 lb BMI: 24.7 Diagnosis Overweight/Obesity BMI> 30% ICD-10 E66: No Diagnosis High BMI/Morbid Obesity BMI> 35% ICD-10 Z68: No Outcomes/Goals: Pt sets, maintains & shows weight loss goal & trend during rehab Intervention/Plan: Instruct on ideal BMI & set weight loss goal w/patient 30 day Reassessments:: Met - Healthy Eating Habits Will attend diet classes:: Yes Outcomes/Goals:: Consume diet rich in vegs,fruits,whole grain/high fiber,fish,lean meat Intervention/Plan:: Assess current eating habits 30-day Reassessments:: Met - Education Gave educational materials for:: Healthy eating Nutrition - 90-Day Assessment Nutrition - Final Assessment Medical - Initial Assessment Medical- 30-Day Assessment Medical- 60-Day Assessment - Visit Date of Eval: 03/02/21 Session #:: 23 - Medication Compliance Preventative Medication(s):: Aspirin, Clopidogrel/P2Y12 inhibit, Ticagrelor/P2Y12 inhibitor - DC'd cahnged to Plavix 75mg, Statin/lipid H/O mental health issues: depression, anxiety, or addiction?: No Doesn?t believe in the benefits of treatment?: No Believes medications are unnecessary or harmful?: No Has a concern about medication side effects?: No Expresses concern over the cost of medications?: No Outcomes/Goals: Verbalizes medications,desired effect & common side effects @ DC, Pt self-reports following medication regimen, Keeps card in wallet w/medications listed by DC Interventions/plans: Instruct on medication effects & side effects, Review medication list w/patient every two weeks, Instruct importance of taking meds as ordered & assist problem solving 30-day Reassessments:: Progressing - Tobacco Use Tobacco Use: Non-smoker - Hypertension Hypertension Diagnosis:: Hypertension ICD-10 I10 Resting Blood Pressure:: 150/70 [place] [employer] Hypertension Guidelines: [place] [employer] Hypertension Guidelines. Normal BP Less than 120/80. Elevated BP 120/80. Hypertension Stage 1: BP 130-139/80-89. Hypertesnion Stage 2: BP 140 or higher/90 or higher. Hypertension Crisis: BP higher than 180/120 Peak Exercise Blood Pressure:: 190/70 Outcomes/Goals: Able to verbalize/achieve optimal blood pressure <130/80, Incorporates diet changes & exercise for blood pressure control by DC Interventions/plan: Instruct on optimal blood pressure, hypertension & medications, Instruct on effects of sodium, alcohol, stress, exercise &hypertension 30 day Reassessments:: Progressing - Tobacco Cessation Referral Smoking Cessation Referral:: No Individual Education/Counseling:: No Education Schedule Given:: Yes - Online resources and printed education book provided Medical- 90-Day Assessment Medical - Final Assessment Psychosocial - Initial Assess Psychosocial - 30-Day Assess Psychosocial - 60-Day Assess - VIsit Date of Eval: 03/02/21 Session #:: 23 Not Applicable: Yes History of previous Mental disease:: No - Psychosocial Test Tool Used:: PHQ-9 Questionnaire phq-9 Severity: Severity. 1-4 Minimal Depression. 5-9 Mild Depression. 10-14 Moderate Depression. 15-19 Moderately Sever Depression. 20-27 Severe Depression. Rule: - Referral to Behavioral Health PS - Interventions: Yes Attend Stress Management Classes, No Referral to Behavioral Health if PHQ-9 score >9:, No Referral to [facility], No Referral to Physician if PHQ-9 if score is 5-9: - Outcomes/Goals: See list Psychosocial Outcomes/Goals:: ID's personal stressors & 2 strategies to manage stress by discharge - Intervention/Plan: See List Interventions/Plan:: Assess stressors,coping strategies & signs of derpression on admission, Instruct/assist pt to develop coping & personal stress Mgt strategies, Instruct patient to recognize signs & symptoms of depression, Instruct patient to recog - 30-day Reassessments: 30 day Reassessments:: Progressing Psychosocial - 90-Day Assess Psychosocial - Final Assessmen Patient Health Questionnaire 60-Day Re-eval Assessment 1. Little interest or pleasure in doing things: Several days 2. Feeling down, depressed, or hopeless: Several days 3. Trouble falling or staying asleep, or sleeping too much: More than half the days 4. Feeling tired or having little energy: Several days 5. Poor appetite or overeating: More than half the days 6. Feeling bad about yourself -- or that you are a failure or have let yourself or your family down: Several days 7. Trouble concentrating on things, such as reading the newspaper or watching television: Not at all 8. Moving or speaking so slowly that other people could have noticed. Or the opposite - being so fidgety or restless that you have been moving around a lot more than usual: Several days 9. Thoughts that you would be better off , or of hurting yourself in some way: Not at all How difficult have these problems made it for you to do your work, take care of things at home, or get along with other people?: Somewhat difficult Total Score: 9 Self-Efficacy 60-Day Re-eval Assessment We would like to know how confident you are in doing certain activities. Please select your confidence level for:: Select your confidence level for the following using the scale 1-10 where 1 is not at all confident and 10 is totally confident. Your score is the average of all 6 responses. Fatigue: How confident are you that you can keep the fatigue caused by your disease from interfering with the things you want to do? Select Number: 4 Physical Discomfort or Pain: How confident are you that you can keep the physical discomfort or pain of your disease from interfering with the things you want to do? Select Number: 5 Emotional Distress: How confident are you that you can keep the emotional distress caused by your disease from interfering with the things you want to do? Select Number: 7 Other Symptoms or Health Problems: How confident are you that you can keep other symptoms or health problems from interfering with the things you want to do? Select Number: 6 Different Tasks and Activities: How confident are you that you can do the different tasks and activities needed to manage your health condition so as to reduce your need to see a doctor? Select Number: 5 Medication: How confident are you that you can do things other than just taking medication to reduce how much your illness affects your everyday life? Select Number: 5 Total Score:: 5 Nutrition Survey
[2021-03-02 13:19] VITALS: BP 150/70; BP 190/70; BMI 24.7
== END 2021-03-10 23:59 ==
LOC: CR 15:45
PROVIDERS: PCP Family Medicine; Referring Provider Internal Medicine Cardiovascular Disease; Visit Provider Internal Medicine Cardiovascular Disease
DX: I25.10 Atherosclerotic heart disease of native coronary artery without angina pectoris (principal); Z95.5 Presence of coronary angioplasty implant and graft
CPT/HCPCS: 93798

== ENCOUNTER 2021-04-06 15:45 | Outpatient (RCR) | payer OTHER, SELFPAY ==
[2021-03-02 13:19] VITALS: BMI 24.7
[2021-03-11 00:14] VITALS: BP 150/70; BP 190/70
--- NOTE | 2021-03-30 09:31 | PCM.CR.ITP ---
Diagnosis Exercise - 90-day Assessment - Visit Date of Eval: 03/30/21 Session #:: 32 - Physician Prescribed Exercise Modalities: Treadmill, Airdyne, NuStep Frequency: 3x/week for 12 weeks [36 sessions] Intensity: 60-80% of age predicted maximum heart rate reserve Current METSs:: 5.5 Target Heart Rate:: 103-135 Current RPE:: 13-14 Maximum Excercise HR:: 101 Resting Blood Pressure: 132/58 Maximum Exercise Blood Pressure: 152/70 EKG Type: NSR to sinus tach w/rare PAC & PVC. T wave inversion w/run of atrial tach. Current Physical Activity or Exercising minutes: 38:16 - Outcomes & Goals Goals:: Verbalizes understanding of THR, RPE & goal METS by session 6, Documents in home exercise log/reports 30 min aerobic 5 day/wk by DC, Demonstrates accurate pulse taking by DC - Intervention & Plan Exercise Program Goals: Instruct on personal THR & RPE, Instruct on MET level & personal MET goal, Show patient to take own pulse /validate performance until accurate, Instruct on home exercise - 30-day Reassessments 30 day Reassessments:: Met - Physical Activity Home Exercise Physical Activity - Home Exercise: Safe Exercise, Warm-up, Self-monitoring, Cool-Down, Home Exercise > 30 min Daily, Sitting Time <3 hours/daily - Outcomes & Goals Outcomes/Goals: Demonstrates correct Warm-up/exercise Cool-Down (S3) if = 2.5 METs, Verbalizes symptoms of exercise intolerance by Session 3 (S3), Demonstrate safe equipment use (S3) & follows exercise prescrition (6) - Intervention & Plan Plan/Intervention: Instruct warm-up & cool-down if exercising at > 2 METs, Instruct on symptoms of exercise intolerance & actions to take, Instruct & monitor on saf, Assess intial functional capacity & safety risk - 30-day Reassessments 30 day Reassessments:: Met Nutrition - Initial Assessment Nutrition - 30-Day Assessment Nutrition - 60-Day Assessment Nutrition - 90-Day Assessment - Program Goals Nutrition Program Goals: LDL <100 optimal. 100 - 129 Near optimal. 130 - 159 Borderline High. 160 - 189 High. Total Cholesterol <200 desirable. 200 - 239 Borderline High. >/= 240 High. HDL < 40 Low >/=60 High. Triglycerides <150 desirable. <199 optimal. VlDL 5 - 40. HgbA1C <7%. BMI <25 Patient has diagnosis of Hyperlipidemia (ICD E78)?: Yes - Visit Date of Assessment:: 03/30/21 Session #:: 32 - Cholesterol/Lipids Determine presence & major risk factors that modify LDL goal: Hypertension or hypertensive medication, Family history of premature CHD in Male < 55 years: female <65 yearsFa, Age men > 45 years; women >/= 55 years Outcomes/Goals: Pt IDs own risk factors & lifestyle modifications by Session 10, Verbalizes symptoms of angina & response by session 3., Pt independently manages Intervention/Plan: Instruct on personal lipid levels & lipid goals/NCEP guidelines, Instruct on cholesterol Referral to dietitian:: No - After speaking w/patient they declined. 30-day Reassessments:: Progressing - Diabetes (Other Core Measures) Diabetes Type: Not Applicable - Weight Mgt (Other Care) Not Applicable: Yes Height: 5 ft 10 in - Weight:: 177 lb 8 oz BMI: 25.4 Diagnosis Overweight/Obesity BMI> 30% ICD-10 E66: No Diagnosis High BMI/Morbid Obesity BMI> 35% ICD-10 Z68: No Outcomes/Goals: Pt sets, maintains & shows weight loss goal & trend during rehab Intervention/Plan: Instruct on ideal BMI & set weight loss goal w/patient 30 day Reassessments:: Met - Healthy Eating Habits Will attend diet classes:: Yes Outcomes/Goals:: Consume diet rich in vegs,fruits,whole grain/high fiber,fish,lean meat, Limit sat/trans fats,cholesterol & added salts & sugars Intervention/Plan:: Assess current eating habits 30-day Reassessments:: Progressing - Education Gave educational materials for:: Healthy eating Nutrition - Final Assessment Medical - Initial Assessment Medical- 30-Day Assessment Medical- 60-Day Assessment Medical- 90-Day Assessment - Visit Date of Eval: 03/30/21 Session #:: 32 - Medication Compliance Preventative Medication(s):: Aspirin, Ticagrelor/P2Y12 inhibitor, Statin/lipid, Beta mark H/O mental health issues: depression, anxiety, or addiction?: No Doesn?t believe in the benefits of treatment?: No Believes medications are unnecessary or harmful?: No Has a concern about medication side effects?: No Expresses concern over the cost of medications?: No Outcomes/Goals: Verbalizes medications,desired effect & common side effects @ DC, Pt self-reports following medication regimen, Keeps card in wallet w/medications listed by DC Interventions/plans: Instruct on medication effects & side effects, Review medication list w/patient every two weeks, Instruct importance of taking meds as ordered & assist problem solving 30-day Reassessments:: Progressing - Tobacco Use Tobacco Use: Non-smoker - Hypertension Hypertension Diagnosis:: Hypertension ICD-10 I10 Resting Blood Pressure:: 132/58 [place] [employer] Hypertension Guidelines: [place] [employer] Hypertension Guidelines. Normal BP Less than 120/80. Elevated BP 120/80. Hypertension Stage 1: BP 130-139/80-89. Hypertesnion Stage 2: BP 140 or higher/90 or higher. Hypertension Crisis: BP higher than 180/120 Peak Exercise Blood Pressure:: 152/70 Outcomes/Goals: Able to verbalize/achieve optimal blood pressure <130/80, Incorporates diet changes & exercise for blood pressure control by DC Interventions/plan: Instruct on optimal blood pressure, hypertension & medications, Instruct on effects of sodium, alcohol, stress, exercise &hypertension 30 day Reassessments:: Progressing - Tobacco Cessation Referral Smoking Cessation Referral:: No Individual Education/Counseling:: No Education Schedule Given:: Yes Medical - Final Assessment Psychosocial - Initial Assess Psychosocial - 30-Day Assess Psychosocial - 60-Day Assess Psychosocial - 90-Day Assess - VIsit Date of Eval: 03/30/21 Session #:: 32 Not Applicable: Yes History of previous Mental disease:: No - Psychosocial Test Tool Used:: PHQ-9 Questionnaire phq-9 Severity: Severity. 1-4 Minimal Depression. 5-9 Mild Depression. 10-14 Moderate Depression. 15-19 Moderately Sever Depression. 20-27 Severe Depression. Rule: - Referral to Behavioral Health PS - Interventions: Yes Attend Stress Management Classes, No Referral to Behavioral Health if PHQ-9 score >9:, No Referral to [facility], No Referral to Physician if PHQ-9 if score is 5-9: - Outcomes/Goals: See list Psychosocial Outcomes/Goals:: ID's personal stressors & 2 strategies to manage stress by discharge - Intervention/Plan: See List Interventions/Plan:: Assess stressors,coping strategies & signs of derpression on admission, Instruct/assist pt to develop coping & personal stress Mgt strategies, Instruct patient to recognize signs & symptoms of depression, Instruct patient to recog - 30-day Reassessments: 30 day Reassessments:: Met Psychosocial - Final Assessmen Patient Health Questionnaire 90-Day Re-eval Assessment 1. Little interest or pleasure in doing things: Not at all 2. Feeling down, depressed, or hopeless: Not at all 3. Trouble falling or staying asleep, or sleeping too much: Several days 4. Feeling tired or having little energy: Not at all 5. Poor appetite or overeating: Several days 6. Feeling bad about yourself -- or that you are a failure or have let yourself or your family down: Not at all 7. Trouble concentrating on things, such as reading the newspaper or watching television: Not at all 8. Moving or speaking so slowly that other people could have noticed. Or the opposite - being so fidgety or restless that you have been moving around a lot more than usual: Not at all 9. Thoughts that you would be better off , or of hurting yourself in some way: Not at all How difficult have these problems made it for you to do your work, take care of things at home, or get along with other people?: Not difficult at all Total Score: 2 Self-Efficacy 90-Day Re-eval Assessment We would like to know how confident you are in doing certain activities. Please select your confidence level for:: Select your confidence level for the following using the scale 1-10 where 1 is not at all confident and 10 is totally confident. Your score is the average of all 6 responses. Fatigue: How confident are you that you can keep the fatigue caused by your disease from interfering with the things you want to do? Select Number: 8 Physical Discomfort or Pain: How confident are you that you can keep the physical discomfort or pain of your disease from interfering with the things you want to do? Select Number: 8 Emotional Distress: How confident are you that you can keep the emotional distress caused by your disease from interfering with the things you want to do? Select Number: 10 Other Symptoms or Health Problems: How confident are you that you can keep other symptoms or health problems from interfering with the things you want to do? Select Number: 9 Different Tasks and Activities: How confident are you that you can do the different tasks and activities needed to manage your health condition so as to reduce your need to see a doctor? Select Number: 9 Medication: How confident are you that you can do things other than just taking medication to reduce how much your illness affects your everyday life? Select Number: 10 Total Score:: 9 Nutrition Survey
[2021-03-30 09:40] VITALS: BP 132/58; BP 152/70; BMI 25.4
== END 2021-04-10 23:59 ==
LOC: CR 15:45
PROVIDERS: PCP Family Medicine; Referring Provider Internal Medicine Cardiovascular Disease; Visit Provider Internal Medicine Cardiovascular Disease
DX: I25.10 Atherosclerotic heart disease of native coronary artery without angina pectoris (principal); Z95.5 Presence of coronary angioplasty implant and graft
CPT/HCPCS: 93798

== ENCOUNTER 2021-05-29 09:46 | Emergency (ER) | payer OTHER, SELFPAY ==
[2021-03-30 09:40] VITALS: BMI 25.4
[2021-05-29 09:47] VITALS: BP 175/86; PULSE 59; RESP 18; TEMP 36.6; O2SAT 98; BMI 25.2
--- NOTE | 2021-05-29 10:17 | EX.ED.DYSGE1 ---
HPI History of Present Illness Chief Complaint: Dizziness Informant: patient Onset/Context/Timing Onset: Today Context: Sudden Onset Timing: Intermittent Quality: Spinning Location: Head Worsened by: Turning head Relieved by: Rest Narrative Narrative: Patient presents with vertigo that began today while he was driving. Patient states he felt like his vision was going up and down. Patient states he has had similar episodes in the past but they have become more frequent. Patient states they usually feel like he is spinning. Patient states it is worse whenever he turns his head. Patient admits to some nausea with this. Patient also admits to some tinnitus. Patient states the episodes usually last 2 to 3 hours when they come on. Patient denies any headaches. Patient denies any loss of hearing. [facility] Medical History Atherosclerotic heart disease of [place] coronary artery without angina pectoris HTN (hypertension) Hypertension Presence of stent in coronary artery (~11/15/20) Psoriasis Psoriatic arthritis Smoker STEMI (ST elevation myocardial infarction) Home Medications aspirin 81 mg tablet,delayed release 81 mg PO DAILY #90 tab 12/02/20 [Rx Last Taken Unknown] atorvastatin 40 mg tablet 40 mg PO QHS #90 tab 12/02/20 [Rx Last Taken Unknown] isosorbide mononitrate 30 mg tablet,extended release 24 hr 30 mg PO DAILY #90 tab 01/22/21 [Rx Last Taken 05/29/21] clopidogrel 75 mg tablet 75 mg PO QDAY #93 tab 02/24/21 [Rx Last Taken 05/29/21] lisinopril 20 mg tablet 20 mg PO DAILY #90 tab 04/20/21 [Rx Last Taken Unknown] meclizine 25 mg PO 4X/DAY PRN PRN #20 tab 05/29/21 [Rx Last Taken Unknown] prednisone 10 mg PO DAILY 05/29/21 [History Last Taken 05/29/21] Allergy/AdvReac Type Severity Reaction Status Date / Time No Known Allergies Allergy Verified 05/29/21 09:49 Surgical History Presence of coronary angioplasty implant and graft (~11/15/20) Social History Smoking Status: Former smoker Tobacco: How many years used: 42 alcohol intake: current details: occassional substance use type: does not use ROS ROS ED Constitutional Constitutional ED: Denies chills or fever(s) Eyes Eyes: Denies blurry vision or change in vision ENT ENT ED: Reports tinnitus; Denies hearing loss, rhinorrhea or sore throat Cardiovascular Cardiovascular: Denies chest pain or palpitations Respiratory/Chest Respiratory/Chest: Denies cough or dyspnea Gastrointestinal Gastrointestinal: Reports nausea; Denies vomiting Genitourinary Genitourinary ED: Denies dysuria or hematuria Musculoskeletal Musculoskeletal: Denies back pain or neck pain Integumentary Denies abscess or rash Neurologic Neurologic: Denies headache(s) or weakness Allergic/Immunologic Allergic/Immunologic ED: Denies mouth swelling or urticaria EXAM Physical Exam Const Vital Signs: 05/29/21 09:47 05/29/21 10:29 Temperature 97.9 F Temperature Source Temporal Pulse Rate 59 L Respiratory Rate 18 Respiratory Effort Normal Non-Labored Respiratory Pattern Normal Blood Pressure 175/86 H Blood Pressure Mean 115 Pulse Ox 98 Oxygen Delivery Method Room Air Positive well nourished and well developed General Appearance ED: well developed HEENT Reports moist mucous membranes Eyes PERRL and EOMs intact bilaterally Eyes Narrative: There is some nystagmus with right lateral gaze. Neck supple and no JVD Resp normal respiratory effort and clear to auscultation bilaterally Cardio regular rate, regular rhythm and no murmurs GI normal to inspection, nondistended, normoactive bowel sounds and non-tender Palpation: soft Extremity normal to inspection General Extremety ED: Negative for edema or tenderness General Extremity: Negative for edema Neuro oriented x3, CN's II-XII intact bilaterally and no sensory deficits noted Sensorium / Orientation: alert Motor Exam: strength 5/5 throughout Psych mental status grossly normal Skin no rashes or lesions noted MDM MDM MDM Narrative Medical decision making narrative: Patient was given a dose of meclizine here. CT scan of the brain was obtained. There is no acute intracranial abnormality. This was interpreted by the radiologist and reviewed by myself. CBC shows a slight leukocytosis of 12.3. Comprehensive metabolic profile was essentially within normal limits. Patient noted some mild improvement with his symptoms. Miri maneuvers were attempted. Patient had minimal improvement with this. Patient was advised that this is likely peripheral vertigo. Patient was given a prescription for meclizine. Patient was instructed to follow-up with his primary care physician in 5 to 7 days. Patient was also given a referral for ENT. Patient and her spouse understood and were agreeable with the plan. All questions were answered. Lab Data Attestation: I reviewed the patient's lab results. Labs: Laboratory Results - last 24 hr 05/29/21 05/29/21 10:00 10:00 WBC 12.3 H RBC 4.07 L Hgb 13.4 Hct 39.6 L MCV 97.3 H MCH 32.9 H MCHC 33.8 RDW Std Deviation 46.5 H RDW Coeff of Lori 13.0 Plt Count 347 MPV 9.1 Immature Gran % (Auto) 0.400 Neut % (Auto) 85.5 H Lymph % (Auto) 10.3 L [place] % (Auto) 3.4 Eos % (Auto) 0.2 Baso % (Auto) 0.2 Absolute Neuts (auto) 10.5 H Absolute Lymphs (auto) 1.27 Nucleated RBC % 0 Sodium 134 L Potassium 4.6 Chloride 105 Carbon Dioxide 22.0 Anion Gap 7 BUN 25 H Creatinine 1.08 Estim Creat Clear Calc 74.16 Est GFR (MDRD) Af Amer 89 Est GFR (MDRD) Non-Af 74 BUN/Creatinine Ratio 23.1 H Glucose 134 H Calcium 8.8 Total Bilirubin 0.50 AST 18 ALT 37 Alkaline Phosphatase 63 Total Protein 7.2 Albumin 3.6 Globulin 3.6 Albumin/Globulin Ratio 1.0 Radiography Diagnostic Testing: Clinical Impression(s) from Imaging Studies Brain CT 05/29/21 10:21 IMPRESSION: Chronic involutional changes of the brain. Electronically Signed: Alfonzo Joel MD at 10:58 EST , Discharge Plan Triage Chief Complaint: Dizziness ED Provider: Jer Myers Dx/Rx/DC Orders Clinical Impression: Vertigo Instructions: ED BPV Vertigo Prescriptions: New meclizine [meclizine] 25 MG tablet 25 mg PO 4X/DAY PRN PRN (Reason: Dizziness) Qty: 20 RF: 0 No Action aspirin 81 mg tablet,delayed release (DR/EC) 81 mg PO DAILY Qty: 90 RF: 3 atorvastatin 40 mg tablet 40 mg PO QHS Qty: 90 RF: 3 clopidogrel [Plavix] 75 mg tablet 75 mg PO QDAY Qty: 93 RF: 3 prednisone 10 mg tablet 10 mg PO DAILY RF: 0 isosorbide mononitrate 30 mg tablet extended release 24 hr 30 mg PO DAILY Qty: 90 RF: 3 lisinopril 20 mg tablet 20 mg PO DAILY Qty: 90 RF: 3 Primary Care Provider: Jer Jacobo Referrals: Jer Ruiz MD [STAFF PHYSICIAN] - 5-7 Days Jer Jacobo MD [Primary Care Provider] - 5-7 Days Disposition Disposition: Home, Self Care
--- NOTE | 2021-05-29 10:21 | CT_ITS ---
STUDY: CT BRAIN WITHOUT CONTRAST REASON FOR EXAM: Male, 61 years old. Dizziness RADIATION DOSAGE (If Supplied By Facility): CTDIvol = ( 44.99 ) mGy, DLP = ( 812.98 ) mGycm TECHNIQUE: Transaxial CT imaging of the brain was performed without administration of intravenous contrast material. Individualized dose optimization techniques were used for this CT. COMPARISON: No relevant priors. FINDINGS: Normal soft tissue structures. Normal calvarium. There is mild cerebral atrophy with widening of the extra-axial spaces and ventricular dilatation. Normal white matter tracts of the cerebral hemispheres. Normal basal ganglia and thalami. Normal brainstem. Normal cerebellum. There is no intracranial hemorrhage. There are no findings of an acute ischemic infarction. Atherosclerotic calcification of the cavernous portions of the internal carotid arteries bilaterally. Normal visualized paranasal sinuses. CT/Brain/Head without Contrast IMPRESSION: Chronic involutional changes of the brain. Electronically Signed: Alfonzo Joel MD at 10:58 EST ,
[2021-05-29] MEDS: Meclizine HCl 25 MG Tablet PO (10:27)
[2021-05-29 10:32] LABS: Absolute Lymphocyte Count 1.27 X10^3/uL (0.83-4.51); Absolute Neutrophil Count 10.5 X10^3/uL (2.0-7.7); Basophil# 0.03 X10^3/uL; Basophil% 0.2 % (0-1); Eosinophil# 0.02 X10^3/uL; Eosinophils% 0.2 % (0-5); Hematocrit 39.6 % (40-54); Hemoglobin 13.4 g/dL (13.0-16.5); Lymphocyte # 1.27 X10^3/ul (0.83-4.51); Lymphocyte % 10.3 % (19-41); Mean Corp Hgb Conc 33.8 g/dL (32-36); Mean Corpuscular Hgb 32.9 pg (27.0-32.0); Mean Corpuscular Volume 97.3 fL (80-94); Mean Platelet Vol. 9.1 fl (6.2-12.0); Monocyte# 0.42 X10^3/uL; Monocyte% 3.4 % (0-10); NRBC Flagged by Analyzer 0 % (0-5); Neutrophil # 10.53 X10^3/uL (2.7-7.7); Neutrophil % 85.5 % (47-70); Platelet Count 347 K/mm3 (150-450); RBC Distribution Width SD 46.5 fl (35.1-43.9); Red Blood Count 4.07 M/mm3 (4.6-6.2); White Blood Count 12.3 K/mm3 (4.4-11.0)
[2021-05-29 10:45] LABS: AST(SGOT) 18 U/L (15-37); Alanine Aminotransfer ALT/SGPT 37 U/L (16-61); Albumin, Serum 3.6 g/dL (3.2-5.0); Alkaline Phosphatase 63 U/L (45-117); Anion Gap 7 (5-15); BUN 25 mg/dL (7-18); BUN/Creat Ratio 23.1 RATIO (10-20); Calcium,Total 8.8 mg/dL (8.5-10.1); Chloride 105 mmol/L (98-107); Creatinine, Serum 1.08 mg/dL (0.70-1.30); EST Glomerular Filtration Rate 74 mL/min (>60); Est Glom Filt Rate - Afr Amer 89 mL/min (>60); Estimated Creatinine Clearance 74.16 ml/min; Globulin 3.6 g/dL (2.2-4.2); Glucose 134 mg/dL (74-106); Potassium 4.6 mmol/L (3.5-5.1); Protein, Total 7.2 g/dL (6.4-8.2); Sodium Level 134 mmol/L (136-145)
[2021-05-29 11:21] VITALS: BP 144/71; PULSE 56; RESP 17; O2SAT 96
== END 2021-05-29 11:22 | disposition home or self-care (01) ==
PROVIDERS: Emergency Provider Emergency Medicine; PCP Family Medicine; Visit Provider Emergency Medicine
DX: R42 Dizziness and giddiness (principal); I10 Essential (primary) hypertension; I25.10 Atherosclerotic heart disease of native coronary artery without angina pectoris; I25.2 Old myocardial infarction; Z87.891 Personal history of nicotine dependence; Z95.5 Presence of coronary angioplasty implant and graft; Z79.82 Long term (current) use of aspirin; Z79.899 Other long term (current) drug therapy
CPT/HCPCS: 70450; 80053; 85025; 99284; A4216

== ENCOUNTER 2021-06-01 16:06 | Outpatient (CLI) | payer OTHER, SELFPAY ==
[2021-03-30 09:40] VITALS: BMI 25.4
[2021-06-01 17:39] LABS: Absolute Lymphocyte Count 2.83 X10^3/uL (0.83-4.51); Absolute Neutrophil Count 7.3 X10^3/uL (2.0-7.7); Basophil# 0.05 X10^3/uL; Basophil% 0.4 % (0-1); Eosinophil# 0.29 X10^3/uL; Eosinophils% 2.5 % (0-5); Hemoglobin 12.9 g/dL (13.0-16.5); Lymphocyte # 2.83 X10^3/ul (0.83-4.51); Lymphocyte % 24.6 % (19-41); Mean Corp Hgb Conc 33.1 g/dL (32-36); Mean Corpuscular Hgb 32.7 pg (27.0-32.0); Mean Platelet Vol. 9.2 fl (6.2-12.0); Monocyte# 0.95 X10^3/uL; Monocyte% 8.2 % (0-10); NRBC Flagged by Analyzer 0 % (0-5); Neutrophil # 7.34 X10^3/uL (2.7-7.7); Neutrophil % 63.8 % (47-70); Platelet Count 302 K/mm3 (150-450); RBC Distribution Width SD 47.4 fl (35.1-43.9); Red Blood Count 3.94 M/mm3 (4.6-6.2); White Blood Count 11.5 K/mm3 (4.4-11.0)
[2021-06-01 18:15] LABS: Erythrocyte Sedimentation Rate 21 mm/hr (0-20)
[2021-06-01 18:16] LABS: AST(SGOT) 19 U/L (15-37); Alanine Aminotransfer ALT/SGPT 38 U/L (16-61); Albumin, Serum 3.5 g/dL (3.2-5.0); Alkaline Phosphatase 60 U/L (45-117); Anion Gap 7 (5-15); BUN 26 mg/dL (7-18); Calcium,Total 8.5 mg/dL (8.5-10.1); Chloride 110 mmol/L (98-107); Creatinine, Serum 1.24 mg/dL (0.70-1.30); EST Glomerular Filtration Rate 63 mL/min (>60); Est Glom Filt Rate - Afr Amer 76 mL/min (>60); Globulin 3.6 g/dL (2.2-4.2); Glucose 84 mg/dL (74-106); Potassium 4.5 mmol/L (3.5-5.1); Protein, Total 7.1 g/dL (6.4-8.2); Sodium Level 138 mmol/L (136-145)
[2021-06-03 16:11] LABS: QNTFERON TB Mitogen Value > 10.00 IU/mL (.); QNTFERON TB Nil Value 0.01 IU/mL (.); QNTFERON TB1+ Ag Value 0.02 IU/mL (.); QNTFERON TB2+ Ag Value 0.02 IU/mL (.)
[2021-06-03 18:12] LABS: QNTIFERON TB Positive Criteria Negative (Negative)
== END 2021-06-01 23:59 | disposition home or self-care (01) ==
LOC: MTLAB 16:07
PROVIDERS: PCP Family Medicine; Referring Provider Internal Medicine Rheumatology; Visit Provider Internal Medicine Rheumatology
DX: L40.59 Other psoriatic arthropathy (principal); L40.9 Psoriasis, unspecified; M51.37 Other intervertebral disc degeneration, lumbosacral region; M47.897 Other spondylosis, lumbosacral region; I25.10 Atherosclerotic heart disease of native coronary artery without angina pectoris; Z79.899 Other long term (current) drug therapy
CPT/HCPCS: 36415; 80053; 85025; 85652; 86140; 86480

== ENCOUNTER → 2021-09-25 | Outpatient (CLI) | payer OTHER, SELFPAY ==
[2021-03-30 09:40] VITALS: BMI 25.4
[2021-09-25 15:25] LABS: ALB/GLOB Ratio 1.2 RATIO (0.9-2.4); AST(SGOT) 17 U/L (15-37); Alanine Aminotransfer ALT/SGPT 31 U/L (16-61); Albumin, Serum 3.9 g/dL (3.2-5.0); Alkaline Phosphatase 62 U/L (45-117); Anion Gap 4 (5-15); BUN 31 mg/dL (7-18); BUN/Creat Ratio 21.4 RATIO (10-20); CRP 4.57 mg/L (0.0-3.0); Calcium,Total 8.8 mg/dL (8.5-10.1); Chloride 114 mmol/L (98-107); Creatinine, Serum 1.45 mg/dL (0.70-1.30); EST Glomerular Filtration Rate 53 mL/min (>60); Est Glom Filt Rate - Afr Amer 64 mL/min (>60); Globulin 3.3 g/dL (2.2-4.2); Glucose 103 mg/dL (74-106); Potassium 4.9 mmol/L (3.5-5.1); Protein, Total 7.2 g/dL (6.4-8.2); Sodium Level 139 mmol/L (136-145)
[2021-09-25 15:29] LABS: Absolute Lymphocyte Count 2.19 X10^3/uL (0.83-4.51); Absolute Neutrophil Count 3.5 X10^3/uL (2.0-7.7); Basophil# 0.03 X10^3/uL; Basophil% 0.4 % (0-1); Eosinophil# 0.29 X10^3/uL; Eosinophils% 4.2 % (0-5); Hematocrit 39.6 % (40-54); Hemoglobin 13.2 g/dL (13.0-16.5); Lymphocyte # 2.19 X10^3/ul (0.83-4.51); Lymphocyte % 31.7 % (19-41); Mean Corp Hgb Conc 33.3 g/dL (32-36); Mean Corpuscular Hgb 32.7 pg (27.0-32.0); Monocyte# 0.91 X10^3/uL; Monocyte% 13.2 % (0-10); NRBC Flagged by Analyzer 0 % (0-5); Neutrophil # 3.47 X10^3/uL (2.7-7.7); Neutrophil % 50.2 % (47-70); Platelet Count 281 K/mm3 (150-450); RBC Distribution Width CV 11.9 % (11.6-14.6); RBC Distribution Width SD 43.6 fl (35.1-43.9); Red Blood Count 4.04 M/mm3 (4.6-6.2); White Blood Count 6.9 K/mm3 (4.4-11.0)
[2021-09-25 15:42] LABS: Erythrocyte Sedimentation Rate 10 mm/hr (0-20)
== END | disposition home or self-care (01) ==
LOC: MTLAB 13:30
PROVIDERS: PCP Family Medicine; Referring Provider Internal Medicine Rheumatology; Visit Provider Internal Medicine Rheumatology
DX: L40.59 Other psoriatic arthropathy (principal); L40.9 Psoriasis, unspecified; M51.37 Other intervertebral disc degeneration, lumbosacral region; M47.897 Other spondylosis, lumbosacral region; I25.10 Atherosclerotic heart disease of native coronary artery without angina pectoris; Z79.899 Other long term (current) drug therapy
CPT/HCPCS: 36415; 80053; 85025; 85652; 86140

== ENCOUNTER → 2021-10-24 | Outpatient (CLI) | payer OTHER, SELFPAY ==
[2021-03-30 09:40] VITALS: BMI 25.4
[2021-10-24 09:07] LABS: AST(SGOT) 14 U/L (15-37); Alanine Aminotransfer ALT/SGPT 30 U/L (16-61); Albumin, Serum 3.8 g/dL (3.2-5.0); Alkaline Phosphatase 59 U/L (45-117); Bilirubin, Direct 0.11 mg/dL (0.00-0.30); Cholesterol 111 mg/dL (200); Globulin 3.4 g/dL (2.2-4.2); High Density Lipoprotein 39 mg/dL; Protein, Total 7.2 g/dL (6.4-8.2); Triglycerides 152 mg/dL; Very Low Density Lipoprotein 30 mg/dL (5-40)
== END | disposition home or self-care (01) ==
LOC: LAB 07:15
PROVIDERS: PCP Family Medicine; Referring Provider Nurse Practitioner Family; Visit Provider Nurse Practitioner Family
DX: E78.00 Pure hypercholesterolemia, unspecified (principal); I10 Essential (primary) hypertension; Z95.5 Presence of coronary angioplasty implant and graft
CPT/HCPCS: 36415; 80061; 80076

== ENCOUNTER → 2021-12-02 | Outpatient (CLI) | payer OTHER, SELFPAY ==
[2021-03-30 09:40] VITALS: BMI 25.4
--- NOTE | 2021-12-02 06:33 | ECHOD_ITS ---
Reason For Study: ANGINA PECTORIS, UNSPECIFIED Procedure This was a 2D Doppler, Color Flow transthoracic echocardiogram. The exam was of adequate technical quality. Exam performed in department. Left Ventricle Normal LV size. Left ventricular systolic function is normal. The estimated ejection fraction is 60 %. No evidence for diastolic dysfunction. No regional wall motion abnormalities noted. Right Ventricle Normal RV size. Normal systolic function. Atria Normal left atrium. Normal right atrium. No doppler evidence for ASD. Mitral Valve There is no mitral annular calcification. Normal mitral valve. The mitral valve chordae are thickened and/or calcified. Mild (1+) eccentric mitral valve insufficiency. Tricuspid Valve Normal tricuspid valve. Mild tricuspid valve insufficiency. Right ventricular systolic pressure estimated to be 25 mmHg. Aortic Valve Trisinus/trileaflet aortic valve. Normal aortic valve. Pulmonic Valve The pulmonic valve is not well visualized. Trivial pulmonic valve insufficiency. Great Vessels Normal sized aortic root. Pericardium/Pleural No pericardial effusion. MMode/2D Measurements & Calculations LVIDd: 4.7 cm IVSd: 0.94 cm Ao root diam: 2.8 cm LVIDs: 2.9 cm LVPWd: 0.98 cm RVDd: 3.8 cm FS: 38.0 % LAV(MOD-bp): 60.7 ml LA A4 area: 19.2 cm2 LA dimension(2D): 3.4 cm LAV(MOD-bp) Indexed: 29.7 ml/m2 LAV(MOD-sp2): 60.1 ml LAV(MOD-sp4): 60.5 ml RA A4 area: 12.3 cm2 Time Measurements MV dec time: 0.23 sec Doppler Measurements & Calculations MV E max ish: 75.1 cm/sec Lat Peak E' Ish: 10.4 cm/sec Med Peak E' Ish: 7.1 cm/sec MV A max ish: 67.6 cm/sec E/E' lat: 7.2 E/E' med: 10.5 MV E/A: 1.1 MV dec slope: 323.6 cm/sec2 Ao V2 max: 139.5 cm/sec LV V1 max: 129.0 cm/sec Ao max P.8 mmHg LV V1 max P.7 mmHg PA V2 max: 110.6 cm/sec PI dec slope: 112.6 cm/sec2 TR max ish: 249.8 cm/sec TR max P.9 mmHg ECHO/Echo Complete Interpretation Summary Left ventricular systolic function is normal. The estimated ejection fraction is 60 %. The mitral valve chordae are thickened and/or calcified. Mild (1+) eccentric mitral valve insufficiency. Mild tricuspid valve insufficiency. Trivial pulmonic valve insufficiency. Right ventricular systolic pressure estimated to be 25 mmHg. No evidence for diastolic dysfunction. Ordering Physician: César Pichardo Referring Physician: Jer Jacobo Performed By: Yolanda Myles, SHOBHA, RVT
--- NOTE | 2021-12-02 12:56 | STRESSREP ---
Stress Test Report Date: 12-02-2021 Procedure: Exercise tolerance test/imaging study Indications: Angina pectoris; CAD; PCI; hyperlipidemia; hypertension Consent: Per the patient Procedure: The patient exercised on a Nikolas protocol for 7 minutes completing Stage II and 1 minute of Stage III achieving a peak heart rate of 111 bpm (69% predicted maximal heart rate) with a peak blood pressure 180/78 mmHg and a peak MET capacity of 9 METs. The baseline ECG demonstrated sinus bradycardia; consider voltage criteria for LVH; nonspecific ST segment abnormality. The peak exercise ECG demonstrated somatic/motion artifact with no obvious ECG changes. There was a rare PVC during recovery. The functional capacity was considered good. There was no complaint of chest discomfort during exercise or recovery. The examination was discontinued secondary to dyspnea and lower extremity discomfort. Impression: 1. Technically adequate (percent predicted maximal heart rate greater than 85%) exercise tolerance test 2. Peak exercise ECG continued nonspecific ST segment abnormality with no significant change compared to baseline 3. There were no cardiac dysrhythmias pretest, during exercise, or recovery 4. Nuclear images pending Myocardial perfusion imaging study: Technique: The patient was injected with 11.9 mCi of technetium 99m Cardiolite and subsequently rest SPECT Cardiolite nuclear imaging was obtained in the horizontal long, vertical long, and short axis views.The patient exercised on a Nikolas protocol for 7 minutes completing Stage II and 1 minute of Stage III achieving a peak heart rate of 111 bpm (69% predicted maximal heart rate) with a peak blood pressure 180/78 mmHg and a peak MET capacity of 9 METs. The patient was injected with 34.1 mCi of technetium 99m Cardiolite and subsequently stress SPECT Cardiolite nuclear imaging was obtained in the horizontal long, vertical long, and short axis views. A gated Cardiolite study at peak stress was obtained. Interpretation: Rest and stress SPECT Cardiolite nuclear imaging status post realignment, normalization, and attenuation correction, demonstrates the appearance of extracardiac/gastrointestinal tracer uptake near the inferior segments and at rest the appearance of relative uniform tracer uptake and myocardial perfusion appearing within normal limits. Status post-rest there is notation of diminished myocardial perfusion in the distal inferior and inferoapical segments.. There is end systolic thickening and brightening. The gated Cardiolite study demonstrates myocardial thickening and inward wall motion. The reported LVEF is 69%. Impression: 1. Rest and stress SPECT Cardiolite nuclear imaging demonstrate myocardial perfusion changes concerning for an area of stress-induced myocardial ischemia in portions of the distal inferior and inferoapical segments. 2. The gated Cardiolite study reports an LVEF of 69%. This note was generated with [employer] software. It may contain incorrect words, spelling, and punctuation that were not noted in checking the note before signing.
== END | disposition home or self-care (01) ==
PROVIDERS: PCP Family Medicine; Referring Provider Internal Medicine Cardiovascular Disease; Visit Provider Internal Medicine Cardiovascular Disease
DX: I25.118 Atherosclerotic heart disease of native coronary artery with other forms of angina pectoris (principal); E78.5 Hyperlipidemia, unspecified; M79.10 Myalgia, unspecified site; I10 Essential (primary) hypertension; Z95.5 Presence of coronary angioplasty implant and graft
CPT/HCPCS: 78452; 93017; 93306; A9500; A4216

== ENCOUNTER 2021-12-29 07:23 | Day surgery (SDC) | payer OTHER, SELFPAY ==
[2021-03-30 09:40] VITALS: BMI 25.4
--- NOTE | 2021-12-22 09:28 | RAD_ITS ---
STUDY: X-RAY CHEST REASON FOR EXAM: Male, 61 years old. SOB TECHNIQUE: PA and lateral views of the chest. COMPARISON: Comparison is made with prior study 11/15/2020. FINDINGS: There is hyperinflation of the lungs consistent with chronic obstructive lung disease (COPD). Scattered calcified granulomas. There is no demonstrated pleural abnormality. Normal size heart. Normal mediastinum and michelle. Normal visualized pulmonary arteries. There is atherosclerotic calcification of the aortic arch with tortuosity. Normal visualized thoracic spine. Normal visualized ribs, clavicles, and shoulders. There is no demonstrated abnormality of the visualized soft tissue structures of the upper abdomen. RAD/Chest PA and Lateral IMPRESSION: Hyperinflation. The lungs are clear. Electronically Signed: Alfonzo Joel MD at 15:25 EDT ,
[2021-12-22 10:27] LABS: Hematocrit 43.1 % (40-54); Hemoglobin 14.2 g/dL (13.0-16.5); Mean Corp Hgb Conc 32.9 g/dL (32-36); Mean Corpuscular Volume 100.2 fL (80-94); Platelet Count 284 K/mm3 (150-450); RBC Distribution Width CV 12.5 % (11.6-14.6); RBC Distribution Width SD 46.7 fl (35.1-43.9); White Blood Count 8.7 K/mm3 (4.4-11.0)
[2021-12-22 10:41] LABS: Prothrombin Time (Protime)PT. 13.3 SECONDS (11.7-14.9)
[2021-12-22 10:42] LABS: Partial Thromboplast Time 22.8 Seconds (24.1-36.2)
[2021-12-22 10:49] LABS: Anion Gap 4 (5-15); BUN 23 mg/dL (7-18); BUN/Creat Ratio 19.3 RATIO (10-20); Calcium,Total 9.3 mg/dL (8.5-10.1); Chloride 109 mmol/L (98-107); Creatinine, Serum 1.19 mg/dL (0.70-1.30); EST Glomerular Filtration Rate 66 mL/min (>60); Est Glom Filt Rate - Afr Amer 80 mL/min (>60); Glucose 97 mg/dL (74-106); Sodium Level 140 mmol/L (136-145)
[2021-12-28 09:02] VITALS: BMI 26.5
--- NOTE | 2021-12-28 11:58 | PCM.HP.BLA ---
History and Physical Date of Admission: 12/29/21 [facility] [address] [place], [place] [address] OFFICE VISIT Date of Service:? 11/18/21 MR#: [id number] Acct: [id number] Name:ALLI CARNEY Rep #: [id number] : 1960 Provider: Dr. César Pichardo MD Age/Sex:? 61/M Location: [facility] Status: Signed HPI HPI History of Present Illness Details: This is a 61-year-old male who presents the office today for a cardiovascular outpatient follow-up with a history of underlying CAD status post RCA PCI (11-15-2020 at [facility] by Dr. Hamm) superimposed upon concerns of hyperlipidemia and hypertension. As you may recall, the patient initially was evaluated [facility] in November 2020 after presenting with chest pain. He underwent a heart catheterization on 11/15/2020 that showed proximal RCA with 70% stenosis, mid RCA with 70% stenosis, distal RCA with 40% stenosis, and RPDA with subtotal 99% stenosis. His left main showed distal 10-20% stenosis. Left anterior descending artery showed ostial 40% stenosis in mid LAD with 70% stenosis. Left circumflex high OM1 with no significant stenosis. He proceeded with drug-eluting stent x3 to RPDA and proximal to mid RCA. His echocardiogram on 11/15/2020 showed ejection fraction of 60% and no significant valvular abnormalities.? Due to residual LAD disease, he did proceed with stress test on 12/17/2020 that was negative for ischemia.? He states he occasionally gets a chest burning sensation.? It does not necessarily radiate.? It is not necessarily associated with other symptoms.? He is not convinced it is related to gastrointestinal disease/reflux. He has been short of breath and dyspneic.? He has attributed this on and off to his medications with respect to his ticagrelor/Brilinta.? However, it is not clear that its not related to another condition either cardiac or noncardiac. He has battled vertigo for years.? He states that he has altered his medications somewhat to see if it would make a difference which included altering from ticagrelor/Brilinta to clopidogrel/Plavix as well as decreasing his statin dose and switching the timing of his TAWNY inhibitor to evening.? Overall he does not believe changing the antiplatelet therapy or altering the statin therapy made a difference.? He is not totally sure switching his lisinopril to the evening made a difference but thinks it may have helped.? He states he has not had recurrent similar type episodes for some time now. He did have lipid labs performed on 10-24-2021.? His total cholesterol was 111 with an LDL 42 and an HDL of 39.? His triglycerides were 152. He had an ECG in the office today.? He was noted to be in sinus rhythm, consider voltage criteria for LVH, and poor R wave progression. Intake Vital Signs ? 12/02/2112:11 06/02/2214:12 11/18/2213:54 11/18/2213:56 Height 5 ft 10 in 5 ft 10 in 5 ft 10 in 5 ft 10 in Weight: ? 181 lb ? 185 lb 8 oz BMI ? 25.9 ? 26.6 BP ? 133/77 H ? 124/60 H Blood Pressure Location ? Lt brachial ? Lt brachial Position ? Sitting ? Sitting Respiration ? 16 ? 16 Pulse ? 58 L ? 60 Pulse Source ? Monitor ? Auscultation Intake Visit Reasons:?1 Y FU Retirement Specialist Required: No Accompanied by: Allergies No Known Allergies Allergy (Verified 11/18/21 14:56) Medications aspirin 81 mg tablet,delayed release 81 mg PO DAILY #90 tabs 12/02/20 [Rx Confirmed 11/18/21] lisinopril 20 mg tablet 20 mg PO DAILY #90 tabs 04/20/21 [Rx Confirmed 11/18/21] ticagrelor 90 mg tablet (Brilinta) 90 mg PO BID #180 tabs 06/22/21 [Rx Confirmed 11/18/21] atorvastatin 40 mg tablet 20 mg PO QHS #90 tabs 07/10/21 [Rx Confirmed 11/18/21] PFSH Medical History? Atherosclerotic heart disease of [place] coronary artery without angina pectoris HTN (hypertension) Hypertension Presence of stent in coronary artery (~11/15/20) Psoriasis Psoriatic arthritis Smoker STEMI (ST elevation myocardial infarction) Surgical History? Presence of coronary angioplasty implant and graft (~11/15/20) Social History? Smoking Status:? Former smoker Tobacco: How many years used:? 42 how long ago did patient quit smoking:? 6 months alcohol intake:? current details:? occassional substance use type:? does not use caffeine:? Yes Type: coffee Number of servings: 1 ROS Const Const: Positive for fatigue and weakness; Negative for body ache, fever(s), headache(s), chills, frequent falls, night sweats, daytime sleepiness, difficulty sleeping, excessive sweating, weight gain, weight loss, increased appetite, poor appetite, anorexia or other Eyes Eyes: Negative for blurry vision or double vision ENT ENT: Positive for dizziness (DX vestibular migraines ); Negative for headache(s) or balance problems Cardio Chest Pain: Yes (occasional) Character: tightness Onset: exercise Location: left chest Duration: brief Relieving: rest Palpitations: No Edema: None Muscle aches with walking: None Resp Respiratory: Positive for SOB with activity (cant get my breath) and SOB at rest (cant get my breath); Negative for SOB orthopnea\SOB lying down, Cough, Coughing up blood/hemoptysis, chest congestion, pain on inspiration, snoring, stridor, wheezing, crackles, paroxysmal nocturnal dyspnea or other Musc Musc: Positive for muscle aches/ myalgia (cramping bilat LE); Negative for muscle weakness, joint pain or balance problems Neuro Neuro: Positive for dizziness (DX vestibular migraines ), near syncope and weakness; Negative for lightheadedness, syncope, orthostatic symptoms, frequent falls, headache(s), confusion, memory loss, restless legs, blurry vision, double vision, vertigo, seizures, lack of coordination or other Endo Endo: Positive for fatigue; Negative for excessive sweating Cardiology Exam Const Appearance: cooperative, healthy appearing, comfortable, no acute distress, well developed and well groomed Nutritional Appearance: average body habitus, well nourished and overweight Orientation: alert, awake and oriented x3 Head Head: normal to inspection, normocephalic and atraumatic Ears: hearing grossly normal bilaterally Nose: external nose normal Face and Sinus: face symmetric Eyes Eyelids: eyelids normal Conjunctivae: conjunctivae normal Pupils: PERRL EOM: EOM intact bilaterally Neck Neck: normal visual inspection, full ROM and no JVD Carotids: normal carotid upstroke Chest Chest inspection: normal inspection of the chest, symmetric chest movement and normal respiratory effort; Negative cough Auscultation: Bilateral: Clear to Auscultation Cardio Palpation: normal PMI Rate: regular rate Rhythm: regular rhythm Heart sounds: S1 normal, S2 normal and positive S4 GI GI: normal to inspection, soft and bowel sounds present Neuro General: patient alert, patient awake, patient oriented x3, gait normal and moves all extremities Skin Skin: no rashes or lesions noted Extremities Pulses: Normal: Right Posterior Tibial Pulse, Left Posterior Tibial Pulse, Right Radial Pulse and Left Radial Pulse Lower Extremity Edema: None: Bilateral Psych Psychological: normal affect Supplemental Info Supplemental Information Echocardiogram from 11/15/2020: Interpretation Summary The estimated ejection fraction is 60 %. Normal diastology for age. Heart catheterization from 11/15/2020: PCI Cardiac Cath Report PCI Report: Procedure performed; 1.? Left heart catheterization 2.? Left ventriculogram 3.? Successful percutaneous core intervention of the culprit lesion with the following; A.? Successful PCI of mid RPDA, subtotal 99% with WAI 2 flow, delete this predilatation using 2 x 15 mm emerge balloon Followed by placement of drug-eluting stent 2.5 x 22 mm Orsiro stent maintenance of WAI-3 flow in the RPDA B.? Use of intravascular ultrasound to determine the diameter of the culprit lesion RCA 5.? Successful PCI and stent of proximal to mid RCA with predilatation using 2 x 15 mm Emerge balloon followed by placement of drug-eluting stent 4 x 40 mm overlap with 4 x 18 mm drug-eluting stent/Orsiro Postdilated with 4 x 20 mm NC emerge balloon.? With reduction of stenosis from 70% to 0% and maintenance of WAI-3 flow. 6.? Use of Integrilin 2 bolus and Integrilin infusion 7.? Use of TR band to maintain hemostasis of the right radial artery arteriotomy site. Preprocedure diagnosis; 60-year-old patient brought in by his to the hospital, complaining of symptoms of retrosternal chest pain with radiation to the arms He evidently had the symptoms for some time especially noted on exertion and walking typical of angina He had a history of hypertension however he was not on any medical therapy and patient also had a history of smoking Seen and evaluated by the ER physician where the EKG is abnormal with evidence of ST elevation noted in lead III one and half millimeter does not qualify for a diagnosis of STEMI as there were no other ST elevation in the rest of the leads As well he had clear evidence of ST depression noted in the lateral leads lead I, aVL and V5 V6 with evidence of LVH with repolarization abnormality. Based on his clinical presentation and significantly abnormal electrocardiogram we proceed for urgent cardiac catheterization with a clinical diagnosis of ACS Consent; Risk and benefit of the procedure explained detail to the patient elected to proceed informed consent obtained. Diagnostic catheter and interventional equipment used; 1.? 6 Jordanian sheath in the right radial artery This is followed by cocktail of verapamil, heparin as well as nitroglycerin 5 Jordanian JL 3.5 5 Jordanian JR4 5 Jordanian pigtail catheter 6 Jordanian JR4 guide catheter 0.014 run-through extra floppy 180 cm straight Image MR 2 x 15 mm balloon NC image MR 4 x 20 mm balloon Drug-eluting stentOrsiro 2.5 x 22 mm Drug-eluting stent Orsiro 4 x 18 mm Drug-eluting stent Orsiro 4x 40 mm. Procedure in detail; Patient brought as a urgent case from the ER Right radial artery area prepped and draped in the usual sterile fashion Access obtained from the right radial artery and a 6 Jordanian sheath placed the right radial artery Proceed with 5 Jordanian JL 3.5 advanced ascending aorta cannulated the left main coronary multiple views of the left coronary system including REBECCA, COREAS cranial and caudal view Following this catheter exchanged for 5 Jordanian JR4 and multiple views right consumer obtained Identified the culprit lesion which is a subtotal RPDA with significant atherosclerosis involving the proximal to mid RCA large dominant vessel Then will proceed with the guide catheter patient was given heparin Brilinta and ACT level at the end of the procedure was 252 He was given aspirin 324 mg Proceed with a run-through wire across the lesion is followed by predilatation using 2 x 50 mm balloon followed by placement of a drug-eluting stent 2.5 x 22 mm The same balloon was used to predilate the proximal to mid RCA lesion We used intravascular ultrasound to determine the diameter of the large RCA which is around 4 to 4.5 mm We will proceed with drug-eluting stent placed 4 x 40 from the distal end in the mid RCA overlap with 4 x 18 mm and postdilated using 4 x 20 mm up to 18 POPEYE and achievement of excellent result with WAI-3 flow with no complication in the Social Services Manager Hemodynamic; LVEDP elevated around 28 mmHg LV systolic function is preserved ejection fraction of around 70, hyperdynamic left ventricle There is no systolic gradient across aortic valve. There is no mitral regurgitation noted. Coronary angiography; 1.? Left main distal 10-20%, bifurcating into LAD and the left circumflex Ostial left anterior descending had a 40%, mid LAD had 70% The left circumflex high OM1 with no significant atherosclerosis The circumflex itself is moderate sized vessel RCA large dominant with a proximal RCA 70 mid RCA 70 distal RCA 40% and RPDA subtotal 99% Conclusion and recommendation This patient has acute coronary syndrome with change in the EKG history of smoking and significant coronary atherosclerosis involving the right coronary large dominant vessel this has been evaluated by intravascular ultrasound and we used a balloon dilatation followed by use of drug-eluting stent as a specified and described in detail Patient will be admitted to the intensive care unit and will start on Integrilin infusion over 24-hour We will continue on DAPT dual antiplatelet therapy aspirin and Brilinta for 1 year We will add low-dose beta-mark carvedilol High-dose statin atorvastatin 40 mg Also will plan for phase 1 cardiac rehabilitation Patient advised cessation of smoking and will monitor his blood pressure and evaluate by echocardiogram during this admission. Stress Test Report Date: 12-17-2020 Procedure: Exercise tolerance test/imaging study Indications: Chest pain, CAD, status post PCI Consent: Per the patient Procedure: The patient exercised on a Nikolas protocol for 5 minutes and 40 seconds completing Stage I and 1 minute and 40 seconds of Stage II achieving a peak heart rate of 117 bpm (73% predicted maximal heart rate) with a peak blood pressure 212/84 mmHg and a peak MET capacity of 7 METs. The baseline ECG demonstrated sinus bradycardia; consider voltage criteria for LVH; ST/T wave abnormality.? The peak exercise ECG demonstrated somatic/motion artifact with no obvious ECG changes. There was an isolated PVC during exercise. The functional capacity was considered decreased. There was no complaint of chest discomfort during exercise or recovery. The examination was discontinued secondary to dyspnea and fatigue. Impression: 1.? Technically inadequate (percent predicted maximal heart rate less than 85%) exercise tolerance test 2.? Peak exercise ECG with somatic/motion artifact with no obvious ECG changes at the heart rate achieved 3.? There was an isolated PVC during exercise 4.? Blood pressure response: Resting hypertension-exaggerated response 5.? Nuclear images pending Myocardial perfusion imaging study: Technique: The patient was injected with 11.3 mCi of technetium 99m Cardiolite and subsequently rest SPECT Cardiolite nuclear imaging was obtained in the horizontal long, vertical long, and short axis views. The patient exercised on a Nikolas protocol for 5 minutes and 40 seconds completing Stage I and 1 minute and 40 seconds of Stage II achieving a peak heart rate of 117 bpm (73% predicted maximal heart rate) with a peak blood pressure 212/84 mmHg and a peak MET capacity of 7 METs. The patient was injected with 33.7 mCi of technetium 99m Cardiolite and subsequently stress SPECT Cardiolite nuclear imaging was obtained in the horizontal long, vertical long, and short axis views.? A gated Cardiolite study at peak stress was obtained. Interpretation: Rest and stress SPECT Cardiolite nuclear imaging status post realignment, normalization, and attenuation correction, demonstrates the appearance of relative uniform tracer uptake and myocardial perfusion appearing within normal limits.? There is end systolic thickening and brightening.? The gated Cardiolite study demonstrates myocardial thickening and inward wall motion.? The reported LVEF is 66%. Impression: 1.? Rest and stress SPECT Cardiolite nuclear imaging demonstrate relative uniform tracer uptake and myocardial perfusion appearing within normal limits at the heart rate achieved. 2.? The gated Cardiolite study reports an LVEF of 66%. Labs: ?? ? LDL Cholesterol 42 mg/dL (0-130) ?? ? HDL Cholesterol 39 mg/dL (40-) L ?? ? Triglycerides 152 mg/dL (-199) ?? ? VLDL Cholesterol 30 mg/dL (5-40) Diagnostics: ?? ? Electrocardiogram ? Echocardiogram ? Stress Test NM ? Stress Test ? Chest X-Ray ? Pulmonary: ?? ? No Data to Display Assessment and Plan Assessment and Plan (1) Atherosclerotic heart disease of [place] coronary artery without angina pectoris: ?Status:?Acute ?Plan: He does have a history of angiographically significant appearing CAD. He does need to continue risk factor modification medical therapy as tolerated. (2) Presence of stent in coronary artery: ?Status:?Acute ?Comment: Successful PCI of mid RPDA, subtotal 99% with WAI 2 flow, delete this predilatation using 2 x 15 mm emerge balloon Followed by placement of drug-eluting stent 2.5 x 22 mm Orsiro stent maintenance of WAI-3 flow in the RPDA B.? Use of intravascular ultrasound to determine the diameter of the culprit lesion RCA 5.? Successful PCI and stent of proximal to mid RCA with predilatation using 2 x 15 mm Emerge balloon followed by placement of drug-eluting stent 4 x 40 mm overlap with 4 x 18 mm drug-eluting stent/Orsiro Postdilated with 4 x 20 mm NC emerge balloon.? With reduction of stenosis from 70% to 0% and maintenance of WAI-3 flow. per cardia cath 11/15/20? Dr. Hamm ?Plan: He has undergone noninvasive and invasive valuation. This led to PCI. He has continued medical management. (3) HLD (hyperlipidemia): ?Status:?Acute ?Plan: His lipid labs were reviewed. He will continue his current medical therapy. (4) Essential hypertension: ?Status:?Acute ?Plan: His blood pressure appears to be reasonly well controlled at this time. He will continue medical management. (5) Myalgia: ?Status:?Acute ?Plan: He has been concerns of myalgias in the past.? He did could decrease his statin dose based upon this concern. His lipids were reviewed. At the moment he will continue his current therapy and monitor his symptoms and his lipids. (6) Angina pectoris: ?Status:?Acute ?Plan: He does have symptoms that are concerning for angina pectoris with respect to his chest burning sensation and his shortness of breath/dyspnea sensation. At the moment he will continue his medical therapy. He will undergo reevaluation of his left ventricular wall motion and systolic function and his coronary physiology with an upcoming transthoracic echocardiogram and a stress nuclear imaging study to compare to his previous studies. Depending upon the response if the studies are unremarkable then perhaps he requires further noncardiac evaluation of his symptoms and perhaps he can discontinue his antiplatelet therapy and monitor if his breathing improves without his ticagrelor/Brilinta. If his studies are concerning then he may need reassessment in the cardiac catheterization laboratory. ? ? ? Orders: Orders 12 Lead EKG performed by [facility] Today I25.10 - Atherosclerotic heart disease of [place] coronary artery without angina pectoris, Z95.5 - Presence of coronary angioplasty implant and graft ? Echo Complete Today E78.5 - Hyperlipidemia, unspecified, I10 - Essential (primary) hypertension, I20.9 - Angina pectoris, unspecified, I25.10 - Atherosclerotic heart disease of [place] coronary artery without angina pectoris, M79.10 - Myalgia, unspecified site, Z95.5 - Presence of coronary angioplasty implant and graft ? Nuclear Stress Test - [employer] Today E78.5 - Hyperlipidemia, unspecified, I10 - Essential (primary) hypertension, I20.9 - Angina pectoris, unspecified, I25.10 - Atherosclerotic heart disease of [place] coronary artery without angina pectoris, M79.10 - Myalgia, unspecified site, Z95.5 - Presence of coronary angioplasty implant and graft ? Plan Details Additional Comments: The above was discussed with the patient with his spouse present.? He was agreeable to this approach. Thank you for allowing me to participate in the care of your patient.? Please don't hesitate to call if any issues arise. This note was generated using a voice recognition system and there may be incorrect words, spelling or punctuation that were not noted when reviewing the office note prior to saving. Follow Up: ? ? 6 Months (PFM ) COVID (Procedure Consent) Procedure Criteria Procedure Criteria: Yes Elective The surgeon/proceduralist and patient have discussed in detail the risk of exposure to and/or potential harm posed by the COVID-19 virus with having a surgery/procedure at this time versus the risk of? delaying the surgery/procedure. It is not possible to know either the risk of delaying the surgery or procedure or chance of getting an infection with perfect accuracy, but a joint decision was made between the patient and the surgeon/proceduralist ?to proceed at this time with the scheduled surgery/procedure as indicated on the consent form. Coding Level of Care Code Off vis,est,level 5 Diagnoses Atherosclerotic heart disease of [place] coronary artery without angina pectoris? I25.10 Presence of stent in coronary artery? Z95.5 HLD (hyperlipidemia)? E78.5 Essential hypertension? I10 Myalgia? M79.10 Angina pectoris? I20.9 Coding Level of Care Code Off vis,est,level 5 Diagnoses Atherosclerotic heart disease of [place] coronary artery without angina pectoris? I25.10 Presence of stent in coronary artery? Z95.5 HLD (hyperlipidemia)? E78.5 Essential hypertension? I10 Myalgia? M79.10 Angina pectoris? I20.9 11/18/21 1722 <Electronically signed by César Pichardo MD> Date César Pichardo MD Cosigner Signature: Date (if applicable) CC:? Dr. Jer Jacobo MD ~ Assessment & Plan Addt'l Comments I have examined the patient the following changes are noted: The patient underwent a transthoracic echocardiogram on 12-02-2021. Interpretation Summary Left ventricular systolic function is normal. The estimated ejection fraction is 60 %. The mitral valve chordae are thickened and/or calcified. Mild (1+) eccentric mitral valve insufficiency. Mild tricuspid valve insufficiency. Trivial pulmonic valve insufficiency. Right ventricular systolic pressure estimated to be 25 mmHg. No evidence for diastolic dysfunction. The patient underwent a stress nuclear imaging study on 12-02-2021. Stress Test Report Date: 12-02-2021 Procedure: Exercise tolerance test/imaging study Indications: Angina pectoris; CAD; PCI; hyperlipidemia; hypertension Consent: Per the patient Procedure: The patient exercised on a Nikolas protocol for 7 minutes completing Stage II and 1 minute of Stage III achieving a peak heart rate of 111 bpm (69% predicted maximal heart rate) with a peak blood pressure 180/78 mmHg and a peak MET capacity of 9 METs. The baseline ECG demonstrated sinus bradycardia; consider voltage criteria for LVH; nonspecific ST segment abnormality.? The peak exercise ECG demonstrated somatic/motion artifact with no obvious ECG changes. There was a rare PVC during recovery.? The functional capacity was considered good. There was no complaint of chest discomfort during exercise or recovery. The examination was discontinued secondary to dyspnea and lower extremity discomfort. Impression: 1.? Technically adequate (percent predicted maximal heart rate greater than 85%) exercise tolerance test 2.? Peak exercise ECG continued nonspecific ST segment abnormality with no significant change compared to baseline 3.? There were no cardiac dysrhythmias pretest, during exercise, or recovery 4.? Nuclear images pending Myocardial perfusion imaging study: Technique: The patient was injected with 11.9 mCi of technetium 99m Cardiolite and subsequently rest SPECT Cardiolite nuclear imaging was obtained in the horizontal long, vertical long, and short axis views.The patient exercised on a Nikolas protocol for 7 minutes completing Stage II and 1 minute of Stage III achieving a peak heart rate of 111 bpm (69% predicted maximal heart rate) with a peak blood pressure 180/78 mmHg and a peak MET capacity of 9 METs. The patient was injected with 34.1 mCi of technetium 99m Cardiolite and subsequently stress SPECT Cardiolite nuclear imaging was obtained in the horizontal long, vertical long, and short axis views.? A gated Cardiolite study at peak stress was obtained. Interpretation: Rest and stress SPECT Cardiolite nuclear imaging status post realignment, normalization, and attenuation correction, demonstrates the appearance of extracardiac/gastrointestinal tracer uptake near the inferior segments and at rest the appearance of relative uniform tracer uptake and myocardial perfusion appearing within normal limits.? Status post-rest there is notation of diminished myocardial perfusion in the distal inferior and inferoapical segments..? There is end systolic thickening and brightening.? The gated Cardiolite study demonstrates myocardial thickening and inward wall motion.? The reported LVEF is 69%. Impression: 1.? Rest and stress SPECT Cardiolite nuclear imaging demonstrate myocardial perfusion changes concerning for an area of stress-induced myocardial ischemia in portions of the distal inferior and inferoapical segments. 2.? The gated Cardiolite study reports an LVEF of 69%. The patient's case was reviewed. Based upon the patient's history, symptoms, and objective findings it was recommended the patient be considered for further evaluation with diagnostic cardiac catheterization. The procedure and risk were discussed with the patient. He was agreeable to this approach. I have re-examined the patient. There are no clinical changes since date of exam. This note was generated using a voice recognition system and there may be incorrect words, spelling or punctuation that were not noted when reviewing the office note prior to saving.
--- NOTE | 2021-12-29 11:08 | CL.D_ITS ---
Patient Name: ALLI JEFF Study Date: 12/29/2021 Performing: César Pichardo MD Ht: 70 inches 177.8 cm : 1960 Wt: 184.99 lbs 83.91 kg Age: 61 Gender: male BSA: 2.02 PROCEDURE(S) PERFORMED IC10-(45401)FFR, CORONARY OR GRAFT, INITIAL VESSEL DC02-([id number])LHC/COR CLINICAL PROFILE AND INDICATIONS Indications: Worsening Angina, Suspected CAD Heart Failure: None Stress/Imaging Date: 12/02/2021tress Test with SPECT MPI: Positive Intermediate Risk Angina Classification Anginal Classification w/in 2 Weeks: CCS III CONCLUSIONS [place] Multivessel CAD RCA: stents: patent RECOMMENDATIONS Risk factor modification Medical therapy Staged for FFR Cased discussed / reviewed with Dr. Abrams of Interventional Cardiology DESCRIPTION OF PROCEDURE The patient arrived to the procedure lab. The risks and benefits of the procedure as well as a full description of our services here and current unavailability of surgical backup were fully explained to the patient and/or their significant other prior to the catheterization. The Timeout was completed, verifying the correct patient and procedure. The patient's procedural site was prepped and draped in the usual fashion. Local anesthetic was given subcutaneously to right radial region with Lidocaine 2%. Using a modified Seldinger technique, arterial access was obtained via the right radial artery, a 6Fr sheath was inserted. Left Coronary Artery selective angiography was performed in multiple views using a 5 Fr. 4.0 [place] catheter.The arterial sheath was pulled and a TR Band was applied for hemostasis CORONARY ANGIOGRAPHY DOMINANCE: Right Dominant LEFT HEART ASSESSMENT Left Ventricular Ejection Fraction: Not assessed LEFT MAIN: proximal: smooth: 25% stenosis followed by mid mild luminal irregularities LEFT ANTERIOR DESCENDING ARTERY: PROX LAD: Mild luminal irregularities MID LAD: to distal: smaller caliber vessel appearing angiographically normal CIRCUMFLEX ARTERY: Angiographically normal RIGHT CORONARY ARTERY: Mild luminal irregularities MID RCA: Previously placed stent is patent DISTAL RCA: 50 % Stenosis RT PDA: Mid - Previously placed stent is patent RIGHT AV SEGMENT: proximal: 50 - 75 % Stenosis COMPLICATIONS No Complications PROCEDURE MEDICATIONS Versed 1 mg IV Fentanyl 50 mcg IV Fentanyl 25 mcg IV Versed 1 mg IV Fentanyl 25 mcg IV Oxygen: 2 L/min via nasal cannula Adenosine drip for FFR 23 ml IV @ 12/29/2021 10:13:14 Heparin 2000 unit(s) IA 12/29/2021 09:24:24 Heparin 5000 unit(s) IV 12/29/2021 09:52:55 SUMMARY OF HEMODYNAMIC DATA Time AIR REST ECG 07:40:43 AO 135/60 (87) SA 09:25:14 Signed By César Pichardo MD On 12/29/2021 11:07:58 César Pichardo MD
--- NOTE | 2021-12-29 11:30 | CL.I_ITS ---
Patient Name: ALLI JEFF Study Date: 12/29/2021 Performing: Sav Abrams MD Ht: 70 inches 177.8 cm : 1960 Wt: 184.99 lbs 83.91 kg Age: 61 Gender: male BSA: 2.02 PROCEDURE(S) PERFORMED DC02-([id number])[facility] CLINICAL PROFILE AND CO-MORBIDITIES Indications: Worsening Angina, Suspected CAD Heart Failure: None Stress/Imaging Date: 12/02/2021 Stress Test with SPECT MPI: Positive Intermediate Risk Angina Classification Anginal Classification w/in 2 Weeks: CCS III CONCLUSIONS FFR distal RCA 0.85 RECOMMENDATIONS Medical therapy DESCRIPTION OF PROCEDURE The patient arrived to the procedure lab. The risks and benefits of the procedure as well as a full description of our services here and current unavailability of surgical backup were fully explained to the patient and/or their significant other prior to the catheterization. The Timeout was completed, verifying the correct patient and procedure. The patient's procedural site was prepped and draped in the usual fashion. Local anesthetic was given subcutaneously to right radial region with Lidocaine 2% Using a modified Seldinger technique,arterial access was obtained via the right radial artery, a 6Fr sheath was inserted. Left Coronary Artery selective angiography was performed in multiple views using a 5 Fr. 4.0 [place] catheter.The images were reviewed and options discussed. A decision was then made to proceed with an Intervention, IVUS or other adjunct procedure. The FFR/iFR wire was inserted. Pressures and FFR/iFR were then recorded. iFR Ratio: 1.01/1.02 iFR Ratio: .93/.94 FFR Ratio Baseline: .93 FFR Ratio post Adenosine: .85 The FFR/iFR wire was then removed. The arterial sheath was pulled and a TR Band was applied for hemostasis INTERVENTION INFORMATION LESION SITE: RCA (Distal) PROCEDURE: FFR COMPLICATIONS No Complications PROCEDURE MEDICATIONS Versed 1 mg IV Fentanyl 50 mcg IV Fentanyl 25 mcg IV Versed 1 mg IV Fentanyl 25 mcg IV Oxygen: 2 L/min via nasal cannula Adenosine drip for FFR 23 ml IV @ 12/29/2021 10:13:14 Heparin 2000 unit(s) IA 12/29/2021 09:24:24 Heparin 5000 unit(s) IV 12/29/2021 09:52:55 SUMMARY OF HEMODYNAMIC DATA Time AIR REST ECG 07:40:43 AO 135/60 (87) SA 09:25:14 Signed By Sav Abrams MD On 12/29/2021 11:29:53 Sav Abrams MD
== END 2021-12-29 12:57 | disposition home or self-care (01) ==
LOC: CLSP 07:24
PROVIDERS: PCP Family Medicine; Referring Provider Internal Medicine Cardiovascular Disease; Visit Provider Internal Medicine Cardiovascular Disease
DX: I25.119 Atherosclerotic heart disease of native coronary artery with unspecified angina pectoris (principal); E78.5 Hyperlipidemia, unspecified; I10 Essential (primary) hypertension; I25.2 Old myocardial infarction; Z79.82 Long term (current) use of aspirin; Z79.899 Other long term (current) drug therapy; Z79.02 Long term (current) use of antithrombotics/antiplatelets; Z87.891 Personal history of nicotine dependence
CPT/HCPCS: 36415; 71046; 80048; 85027; 85610; 85730; 93454; 93571; 99152; 99153; J0153; J7040; Q9967; C1769; C1887; C1894

== ENCOUNTER → 2022-08-27 | Outpatient (CLI) | payer OTHER, SELFPAY ==
[2021-03-30 09:40] VITALS: BMI 25.4
[2022-08-27 07:20] LABS: AST(SGOT) 16 U/L (15-37); Alanine Aminotransfer ALT/SGPT 26 U/L (16-61); Albumin, Serum 3.6 g/dL (3.2-5.0); Alkaline Phosphatase 59 U/L (45-117); Bilirubin, Direct 0.13 mg/dL (0.00-0.30); Cholesterol 94 mg/dL (200); Globulin 3.1 g/dL (2.2-4.2); High Density Lipoprotein 36 mg/dL; Protein, Total 6.7 g/dL (6.4-8.2); Triglycerides 148 mg/dL; Very Low Density Lipoprotein 30 mg/dL (5-40)
== END | disposition home or self-care (01) ==
LOC: LAB 06:01
PROVIDERS: PCP Family Medicine; Referring Provider Nurse Practitioner Family; Visit Provider Nurse Practitioner Family
DX: E78.00 Pure hypercholesterolemia, unspecified (principal); I25.10 Atherosclerotic heart disease of native coronary artery without angina pectoris
CPT/HCPCS: 36415; 80061; 80076

== ENCOUNTER → 2022-09-29 | Outpatient (CLI) | payer OTHER, SELFPAY ==
[2021-03-30 09:40] VITALS: BMI 25.4
--- NOTE | 2022-09-29 15:23 | MRI_ITS ---
EXAM: MR ANGIOGRAPHY HEAD WITHOUT INTRAVENOUS CONTRAST CLINICAL INDICATION: neck arthritsi and vestibular findings, pt c/o dizziness x 10 yrs, headaches TECHNIQUE: Routine [place] of [place]/brain 3D time of flight MR angiogram protocol was performed without intravenous contrast. COMPARISON: MRI brain from same date. FINDINGS: RIGHT INTERNAL CAROTID ARTERY: No acute findings. No significant stenosis at the intracranial/visualized segments. No aneurysm. RIGHT ANTERIOR CEREBRAL ARTERY: Unremarkable. No significant stenosis at the visualized segments. Anterior communicating artery is present. No aneurysm. RIGHT MIDDLE CEREBRAL ARTERY: Unremarkable. No significant stenosis at the visualized segments. No aneurysm. RIGHT POSTERIOR CEREBRAL ARTERY: Unremarkable. No significant stenosis at the visualized segments. No aneurysm. RIGHT VERTEBRAL ARTERY: Unremarkable as visualized. No significant stenosis at the intradural/visualized segments. No aneurysm. LEFT INTERNAL CAROTID ARTERY: No acute findings. No significant stenosis at the intracranial/visualized segments. No aneurysm. LEFT ANTERIOR CEREBRAL ARTERY: Unremarkable. No significant stenosis at the visualized segments. Anterior communicating artery is present. No aneurysm. LEFT MIDDLE CEREBRAL ARTERY: Unremarkable. No significant stenosis at the visualized segments. No aneurysm. LEFT POSTERIOR CEREBRAL ARTERY: Unremarkable. No significant stenosis at the visualized segments. No aneurysm. LEFT VERTEBRAL ARTERY: Unremarkable as visualized. No significant stenosis at the intradural/visualized segments. No aneurysm. BASILAR ARTERY: Unremarkable. No significant stenosis. No aneurysm. OTHER VASCULATURE: Small posterior communicating artery on the left. No posterior communicating artery identified on the right, normal variant. MRI/MRA Head ONLY without Contrast IMPRESSION: Unremarkable MRA head. Electronically Signed: Dennys Ramirez MD at 1:46 EDT ,
--- NOTE | 2022-09-29 15:23 | MRI_ITS ---
EXAM: MR HEAD WITHOUT INTRAVENOUS CONTRAST CLINICAL INDICATION: neck arthritsi and vestibular findings, pt c/o dizziness x 10 yrs, headaches TECHNIQUE: Multiplanar and multisequence MR images of the brain were obtained without intravenous contrast. Magnetic field strength 1.5 T. COMPARISON: Noncontrast head CT 05/29/2021. FINDINGS: BRAIN AND EXTRA-AXIAL SPACES: Small focal area of high signal on T2 and FLAIR and low signal on T1 measuring 6 mm in the right frontal deep white matter. This correlates with a small focal area of low density on the CT scan dated 05/29/2021. No intra- or extra-axial hemorrhage. No evidence of acute infarct. No intracranial mass or mass effect. There is preservation of the estevez/white matter interface. Posterior fossa structures are unremarkable. Ventricles are appropriate for age. No hydrocephalus. Basal cisterns are patent. SELLA: Unremarkable. Normal sella turcica, pituitary gland, infundibular stalk, optic chiasm and hypothalamus. AUDITORY SYSTEM: Unremarkable. The internal auditory canals are patent. BONES/JOINTS: Unremarkable. No discrete lytic or blastic abnormalities. SINUSES: Unremarkable as visualized. Clear. MASTOID AIR CELLS: Unremarkable as visualized. Clear. ORBITS: Unremarkable as visualized. Both globes, extraocular muscles, optic nerves and retrobulbar fat appear unremarkable. VASCULATURE: Unremarkable as visualized. Normal flow voids in the major intracranial circulation. MRI/Brain without Contrast IMPRESSION: Small focal 5 mm area of high signal on T2 and flair and low signal on T1 that correlates with a small area of low-density on the prior CT scan dated 05/29/2021 indicating this is chronic. This finding is nonspecific but can be seen in association with migraine disorder, hypertension, chronic small vessel ischemia, vasculitis and demyelinating disease. No specific acute abnormality identified. Electronically Signed: Jarvis Chacon MD at 2:23 EDT ,
== END | disposition home or self-care (01) ==
PROVIDERS: PCP Family Medicine; Referring Provider Family Medicine; Visit Provider Family Medicine
DX: R42 Dizziness and giddiness (principal)
CPT/HCPCS: 70544; 70551

== ENCOUNTER → 2023-06-03 | Outpatient (CLI) | payer OTHER, SELFPAY ==
[2021-03-30 09:40] VITALS: BMI 25.4
--- NOTE | 2023-06-03 08:59 | US_ITS ---
STUDY: ULTRASOUND BREAST - RIGHT REASON FOR EXAM: Male, 63 years old. Palpable lump in the right breast. TECHNIQUE: Axial and longitudinal images of the RIGHT breast were performed with a high resolution ultrasound transducer. # OF IMAGES: 41 COMPARISON: Comparison is made with prior mammogram done earlier today. FINDINGS: RIGHT Breast: The retroareolar region of the right breast was examined with ultrasound. The palpable abnormality corresponds to irregular soft tissue density with increased vascularity. With the patient''s history of recent trauma, this may represent hematoma although tissue diagnosis is recommended. US/Breast Limited Unilateral IMPRESSION: Abnormal irregular soft tissue density with increased vascularity in the retroareolar region of the right breast corresponding to the palpable abnormality. This may represent a resolving hematoma although tissue diagnosis is recommended. ASSESSMENT CATEGORY: BIRADS Category 4: Suspicious - Biopsy Should Be Considered. A letter regarding these results will be sent to the patient by the facility within 30 days. Electronically Signed: Alfonzo Joel MD at 12:42 EST ,
--- NOTE | 2023-06-03 08:59 | BI_ITS ---
MAMMOGRAPHY - BILATERAL DIAGNOSTIC REASON FOR EXAM: Male, 63 years old. Recent injury to the right breast with bruising. PERTINENT HISTORY: Non-contributory. TECHNIQUE: Digital bilateral breast yue (3D mammographic acquisition) in the CC and MLO projections. 2-D mediolateral oblique (MLO) and craniocaudad (CC) views of both breasts were obtained. CAD: Full Field Digital Mammography with Computer Added Detection was performed. COMPARISON: None. Baseline examination. FINDINGS: Breast Composition: Heterogeneous glandular tissue in the right breast corresponding to the palpable lump. Findings suggestive of bilateral gynecomastia. There are no dominant masses or suspicious calcifications. No other significant abnormalities are identified. BI/DIAG MAMM W/CAD, BILAT IMPRESSION: Asymmetrical breast tissue with more breast tissue is seen in the right breast as compared to the left side. With the patient''s history of a palpable lump, targeted correlation with ultrasound is recommended. ASSESSMENT CATEGORY: BIRADS Category 0: Incomplete. Need additional imaging evaluation. A letter regarding these results will be sent to the patient by the facility within 30 days. Approximately 10% of breast cancers are not detected by mammography. A normal mammogram should not delay biopsy of a clinically suspicious abnormality. Electronically Signed: Alfonzo Joel MD at 10:08 EST ,
--- OUTSIDE RECORDS SUMMARY | 2023-06-03 09:29 | XMS RPT_ITS | CCD ---
Author Name Unknown Address [address] [place] [address] Organization [facility] Care Team Providers Care Patient Accounts Clerk Name Role Phone FLORENCIO MORENO, DAVID Del Rosario Primary Care Physician FLORENCIO MORENO, DAVID Del Rosario Primary Care Unavailable RAMA MORENO, ADDIE Attending Unavailable Problems Problem Classification Problem Date Documented Da te Episodic/Chronic Conditions associated with dizziness or vertigo (1 source) Dizziness and giddiness; Translations: [Dizziness and giddiness] Episodic Spondylosis; intervertebral disc disorders; other back problems (2 sources) Neck pain; Translations: [Cervicalgia] Episodic Encounters Encounter Date Encounter Type Care Provider Facility Start: 12-16-2022 End: 01-24-2023 ambulatory DAVID MATIAS MD Facility:B Start: 12-16-2022 End: 01-24-2023 Physical therapy management ADDIE ONTIVEROS MD [facility] Payers Date Payer Category Payer Unknown [id number] 1960 Unknown [id number] Functional Status Date Assessment Result Facility 12-16-2022 Functional Status Home Living Ad ditional Information Objective: Cervical ROM: mod loss bilat, Flex: min loss, Ext: mod loss Posture: mild forward head posutre UE strength:see chart Cardiovascular screen: BP: 152/80 HR: 64 BPM saturation:94% LE strength: see chart Upper and Lower extremity sensation: Grossly intact and symmetrical light touch bilat LE's Reflex: 1+ bilat biceps and triceps, negative inverted supinator sign and hoffmans reflex bilat, patellar 1+ bilat, achilles: 1+ bilat Oculomotor tests: Spontaneous nystagmus:- , Gaze hold nystagmus:-, smooth pursuit: mild limitations, Saccades: NT, VOR to slow head movements: Some mild defcits , Head impulse test(quick rotation): NTVOR cancellation: NT, [id number](norm 6 cm from nose): , Ocular motor testing: visual tracking grossly intact bilat Visual acuity: 20/15 Modified CTSIB: 15% impairment 2.2 Vestibular: Laureen hallpike: - bilat [facility] Evaluation + Plan note Note Date & Type Note Facility Evaluation + Plan note No data available for this section [facility] Discharge instructions Note Date & Type Note Facility Hospital Discharge instructions No data available for this section [facility] Progress note Note Date & Type Note Facility Progress note No data available for this section [facility] Summary Purpose Family History No Family History Records Found Advance Directives No Advanced Directives Records Found Additional Source Comments Patient Care team informatio n (unrecognized section and content) Care Team Personnel Name: DAVID MATIAS MD Member Role: Primary Care Physician Address: Address: [place] [address] [place] [address]- Care Team Related Persons Name: ANDREIA JEFF Address: Home [address] (unrecognized sect ion and content) No Status Records Found INFORMATION SOURCE (unrecogn ized section and content) FOR RECORDS PERTAINING TO PATIENTS WHO ARE OR HAVE BEEN ENROLLED IN A CHEMICAL DEPENDENCY/SUBSTANCEABUSE PROGRAM, SOME INFORMATION MAY BE OMITTED. This clinical summary was aggregated from multiple sources. Caution should be exercised in using it in the provision of clinical care. This summary normalizes information from multiple sources, and as a consequence, information in this document may materially change the coding, format and clinical context of patient data. In addition, data may be omitted in some cases. CLINICAL DECISIONS SHOULD BE BASED ON THE PRIMARY CLINICAL RECORDS. [facility] [employer] provides no warranty or guarantee of the accuracy or completeness of information in this document.
== END | disposition home or self-care (01) ==
LOC: OPBI 08:56
PROVIDERS: PCP Family Medicine; Referring Provider Family Medicine; Visit Provider Family Medicine
DX: N63.10 Unspecified lump in the right breast, unspecified quadrant (principal)
CPT/HCPCS: 76642; 77062; 77063; 77066; G0279

== ENCOUNTER → 2023-06-10 | Outpatient (CLI) | payer OTHER, SELFPAY ==
[2021-03-30 09:40] VITALS: BMI 25.4
--- NOTE | 2023-06-10 14:10 | CT_ITS ---
STUDY: LOW DOSE CT LUNG CANCER SCREENING REASON FOR EXAM: Male, 63 years old. Prior cigarette/nicotine. The patient smoked 1 pack per day for 30 years. RADIATION DOSAGE (If Supplied By Facility): CTDIvol = ( 3.18 ) mGy, DLP = ( 111.19 ) mGycm TECHNIQUE: No contrast was administered. Low dose technique was utilized (average mAS-38 and kVp 120). 1.25 mm axial source images with a slice interval of 1.25-mm were reconstructed in lung windows. 2.5 mm axial source images with a slice interval of 2.5-mm were reconstructed in lung windows. 5.0 mm axial source images with a slice interval of 5.0-mm were reconstructed in soft tissue windows. COMPARISON: None. NODULES: No suspicious nodules are seen. Emphysema: Hyperinflation. Emphysematous changes worse in the upper lobes. There is a 2.8 cm x 1.7 cm bulla in the anterior aspect of the left lower lobe. Endobronchial lesion: None Aorta: Atherosclerotic plaque formation. CORONARY ARTERIES: 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 calcification is seen. Heart: Myocardium unremarkable Pulmonary artery: Unremarkable Mediastinal nodes: Unremarkable Other chest and abdominal findings: CT/Low Dose CT Lung Screening IMPRESSION: Lung-RADS category 2 - Continue annual screening with LDCT in 12 months. IMPORTANT NOTES FOR USE: ACR Lung-RADS Version 1.1 Assessment Categories Release Date: 2018 Category: Coded 0-4 bases on nodule(s) with highest degree of suspicion. Negative screen is defined as categories 1 and 2; a positive screen is defined as categories 3 and 4. Category 3 and 4A nodules that are unchanged on interval CT should be coded as category 2, and individuals returned to screening in 12 months. Category 4X: Category 3 or 4 nodules with additional imaging findings that increase the suspicion of lung cancer, such as spiculation, GGN that doubles in size in 1 year, enlarged lymph notes, etc. Category Modifiers: S (significant finding unrelated to lung cancer) Electronically Signed: Alfonzo Joel MD at 15:11 EST ,
--- OUTSIDE RECORDS SUMMARY | 2023-06-10 16:28 | XMS RPT_ITS | CCD ---
Author Name Unknown Address [address] [place] [address] Organization [facility] Care Team Providers Care Iron Guardrail Installer Name Role Phone FLORENCIO MORENO, DAVID Del Rosario Primary Care Physician [phone] FLORENCIO MORENO, DAVID Del Rosario Primary Care [...] 01-24-2023 Physical therapy management ADDIE ONTIVEROS MD [facility] Payers Date Payer Category Payer Unknown [id number] 1960 Unknown [id number] Functional Status Date Assessment Result Facility 12-16-2022 [...] Head impulse test(quick rotation): NTVOR cancellation: NT, [id number](norm 6 cm from nose): , Ocular motor testing: visual tracking grossly intact bilat Visual acuity: 20/15 Modified CTSIB: 15% impairment 2.2 Vestibular: [place] hallpike: - bilat [facility] Evaluation + Plan note Note Date & Type Note Facility Evaluation + Plan note No data available for this section [facility] Hospital Discharge instructions Note Date & Type Note Facility Hospital Discharge instructions No data available for this section [facility] Progress note Note Date & Type Note Facility Progress note No data available for this section [facility] Summary Purpose Family History No Family History Records Found Advance Directives No Advanced Directives Records Found Additional Source Comments Patient Care team informatio n (unrecognized section and content) Care Team Personnel Name: DAVID MATIAS MD Member Role: Primary Care Physician Address: Address: [place] [address] [place] [address]- Care Team Related Persons Name: ANDREIA JEFF Address: Home [address] (unrecognized sect ion and content) No [...] BE BASED ON THE PRIMARY CLINICAL RECORDS. [facility] [employer] provides no warranty or guarantee of the accuracy or completeness of information in this document.
== END | disposition home or self-care (01) ==
LOC: CT 14:03
PROVIDERS: PCP Family Medicine; Referring Provider Family Medicine; Visit Provider Family Medicine
DX: Z12.2 Encounter for screening for malignant neoplasm of respiratory organs (principal); F17.201 Nicotine dependence, unspecified, in remission
CPT/HCPCS: 71271

== ENCOUNTER → 2023-06-25 | Outpatient (CLI) | payer OTHER, SELFPAY ==
[2021-03-30 09:40] VITALS: BMI 25.4
--- OUTSIDE RECORDS SUMMARY | 2023-06-25 07:27 | XMS RPT_ITS | CCD ---
Author Name Unknown Address [address] [place] [address] Organization [facility] Care Team Providers Care Freight Elevator Erector Name Role Phone FLORENCIO MORENO, DAVID Del [...] 01-24-2023 Physical therapy management ADDIE ONTIVEROS MD [facility] Payers Date Payer Category Payer Unknown [id number] 1960 Unknown [id number] Functional Status Date Assessment Result Facility 12-16-2022 [...] Head impulse test(quick rotation): NTVOR cancellation: NT, [id number](norm 6 cm from nose): , Ocular motor testing: visual tracking grossly intact bilat Visual acuity: 20/15 Modified CTSIB: 15% impairment 2.2 Vestibular: [place] hallpike: - bilat [facility] Evaluation + Plan note Note Date & Type Note Facility Evaluation + Plan note No data available for this section [facility] Hospital Discharge instructions Note Date & Type Note Facility Hospital Discharge instructions No data available for this section [facility] Progress note Note Date & Type Note Facility Progress note No data available for this section [facility] Summary Purpose Family History No Family History Records Found Advance Directives No Advanced Directives Records Found Additional Source Comments Patient Care team informatio n (unrecognized section and content) Care Team Personnel Name: DAVID MATIAS MD Member Role: Primary Care Physician Address: Address: [place] [address] [place] [address]- Care Team Related Persons Name: ANDREIA JEFF Address: Home [address] (unrecognized sect ion and content) No [...] BE BASED ON THE PRIMARY CLINICAL RECORDS. [facility] [employer] provides no warranty or guarantee of the accuracy or completeness of information in this document.
[2023-06-25 08:50] LABS: AST(SGOT) 24 U/L (15-37); Alanine Aminotransfer ALT/SGPT 33 U/L (16-61); Albumin, Serum 3.8 g/dL (3.2-5.0); Alkaline Phosphatase 69 U/L (45-117); Bilirubin, Direct 0.12 mg/dL (0.00-0.30); Cholesterol 114 mg/dL (200); Globulin 3.4 g/dL (2.2-4.2); High Density Lipoprotein 37 mg/dL; Protein, Total 7.2 g/dL (6.4-8.2); Triglycerides 180 mg/dL; Very Low Density Lipoprotein 36 mg/dL (5-40)
== END | disposition home or self-care (01) ==
LOC: LAB 07:25
PROVIDERS: PCP Family Medicine; Referring Provider Nurse Practitioner Family; Visit Provider Nurse Practitioner Family
DX: E78.00 Pure hypercholesterolemia, unspecified (principal)
CPT/HCPCS: 36415; 80061; 80076

== ENCOUNTER → 2023-07-22 | Outpatient (CLI) | payer OTHER, SELFPAY ==
[2021-03-30 09:40] VITALS: BMI 25.4
--- NOTE | 2023-07-22 10:37 | US_ITS ---
STUDY: ULTRASOUND BREAST - RIGHT REASON FOR EXAM: Male, 63 years old. Right breast mass. TECHNIQUE: Axial and longitudinal images of the RIGHT breast were performed with a high resolution ultrasound transducer. # OF IMAGES: 39 COMPARISON: Comparison is made with prior sonogram of the right breast dated June 03, 2023. FINDINGS: RIGHT Breast: Persistent 3.4 cm x 2.2 cm x 1.7 cm irregular hypoechoic density in the retroareolar region. Tissue diagnosis is recommended. US/Breast Limited Unilateral IMPRESSION: Persistent 3.4 cm x 2.2 cm x 1.7 cm irregular hypoechoic density in the retroareolar region of the right breast. Tissue diagnosis is recommended. ASSESSMENT CATEGORY: BIRADS Category 4: Suspicious - Biopsy Should Be Considered. A letter regarding these results will be sent to the patient by the facility within 30 days. Electronically Signed: Alfonzo Joel MD at 9:13 EDT ,
== END | disposition home or self-care (01) ==
LOC: OPUS 10:36
PROVIDERS: PCP Family Medicine; Referring Provider Surgery; Visit Provider Surgery
DX: N63.10 Unspecified lump in the right breast, unspecified quadrant (principal)
CPT/HCPCS: 76642

== ENCOUNTER 2023-08-14 09:04 | Observation (INO) | payer OTHER, SELFPAY ==
[2021-03-30 09:40] VITALS: BMI 25.4
[2023-08-14 09:06] VITALS: BP 135/75; PULSE 73; RESP 18; TEMP 36.2; O2SAT 93; BMI 28.1
--- NOTE | 2023-08-14 10:08 | CT_ITS ---
INDICATION: tonsillar abscess EXAMINATION: CT NECK WITH CONTRAST - CT Soft Tissue Neck W/ Contrast Injection TECHNIQUE: Helically acquired images were obtained of the neck following IV contrast. A radiation dose optimization technique was used for this scan. IV Contrast dosage and agent: 100 cc of Isovue-370 RADIATION DOSAGE (If Supplied By Facility): CTDIvol = ( 19 ) mGy, DLP = ( 631.27 ) mGycm COMPARISON: No relevant prior comparison study available FINDINGS: NASOPHARYNX: Unremarkable. SUPRAHYOID NECK: There is enlargement of the right palatine tonsil with associated narrowing of the airway. Within the right palatine tonsil there is a 2.6 x 2.4 x 2.9 cm round low-attenuation focus with peripheral enhancement consistent with an abscess. INFRAHYOID NECK: Unremarkable larynx, hypopharynx, and supraglottis. THYROID: No focal lesions. SALIVARY GLANDS: Unremarkable. LYMPH NODES: There are prominent right-sided cervical lymph nodes. VASCULAR STRUCTURES: There are vascular calcifications. VISUALIZED PORTIONS OF THE ORBITS, PARANASAL SINUSES, MASTOID AIR CELLS AND SKULL BASE: Unremarkable. BONES: Unremarkable. THORACIC INLET: There are emphysematous changes within the visualized upper lungs. CT/Soft Tissue Neck WITH Contrast IMPRESSION: Right-sided acute tonsillitis associated with a 2.6 x 2.4 x 2.9 cm peritonsillar abscess. Atherosclerosis. Emphysema. Electronically Signed: Eli Gardner MD at 11:41 EDT ,
--- NOTE | 2023-08-14 10:16 | EDS_ITS ---
HPI History of Present Illness Chief Complaint: Sore Throat Informant: patient Onset/Context/Timing Onset: Days (5 days) Context: Gradual Onset Narrative Narrative: Patient presents secondary to right ear and right throat pain for the past 5 days. He was on vacation in [place] at the time of onset. He had subjective fevers at the time but no way of checking his temperature. [facility] and diagnosed with strep pharyngitis. No swab was performed. Patient was started on prednisone and Pen-Vee K. Patient had increased pain and swelling today and presents to the emergency room. [facility] Medical History Abnormal stress test Angina pectoris Atherosclerotic heart disease of [place] coronary artery without angina pectoris Breast mass, right Essential hypertension History of left heart catheterization (LHC) (~12/29/21) HLD (hyperlipidemia) Myalgia Presence of stent in coronary artery (~11/15/20) Psoriasis Psoriatic arthritis Smoker SOB (shortness of breath) STEMI (ST elevation myocardial infarction) Tobacco abuse Home Medications aspirin 81 mg tablet,delayed release 81 mg PO DAILY #90 tabs 12/10/22 [Rx Last Taken Unknown] clopidogrel 75 mg tablet 75 mg PO DAILY #90 tabs 01/04/23 [Rx Last Taken Unknown] telmisartan 80 mg tablet 80 mg PO DAILY #90 tabs 01/04/23 [Rx Last Taken Unknown] amlodipine 5 mg tablet 5 mg PO DAILY #90 tabs 08/02/23 [Rx Last Taken Unknown] atorvastatin 10 mg tablet 10 mg PO QHS #90 tabs 08/02/23 [Rx Last Taken Unknown] penicillin V potassium 500 mg tablet 500 mg PO BID 10 days #20 tabs 08/13/23 [Rx Last Taken Unknown] prednisone 20 mg tablet 40 mg (2 x 20 mg) PO DAILY 3 days #6 tabs 08/13/23 [Rx Last Taken Unknown] Allergy/AdvReac Type Severity Reaction Status Date / Time isosorbide AdvReac Intermediate Dizzy, Verified 08/14/23 09:05 lightheaded, short of breath lisinopril AdvReac Intermediate dry Verified 08/14/23 09:05 persistent cough Family History Mother Thyroid disorder Surgical History Presence of coronary angioplasty implant and graft (~11/15/20) Social History Smoking Status: Former smoker Tobacco: How many years used: 42 how long ago did patient quit smokin months alcohol intake: current details: occassional substance use type: does not use caffeine: Yes Type: coffee Number of servings: 1 ROS ROS ED Constitutional Constitutional ED: Reports fever(s) and subjective; Denies chills Eyes Eyes: Denies change in vision or discharge from eye(s) ENT ENT ED: Reports ear pain right and sore throat; Denies discharge from eye(s) or rhinorrhea Cardiovascular Cardiovascular: Denies chest pain or palpitations Respiratory/Chest Respiratory/Chest: Denies cough or dyspnea Gastrointestinal Gastrointestinal: Denies abdominal pain, nausea or vomiting Musculoskeletal Musculoskeletal: Denies back pain or extremity pain Integumentary Denies Abrasions or rash Neurologic Neurologic: Denies headache(s) or weakness Psychiatric Psychiatric: Denies anxiety or depression Allergic/Immunologic Allergic/Immunologic ED: Denies lip swelling or urticaria EXAM Physical Exam Narrative Exam Narrative: Head of bed elevated approximate 40 degrees. Patient tolerating secretions and speaks with a strong voice. Const Vital Signs: 08/14/23 09:06 Temperature 97.1 F L Temperature Source Temporal Pulse Rate 73 Respiratory Rate 18 Blood Pressure 135/75 H Blood Pressure Mean 95 Pulse Ox 93 Oxygen Delivery Method Room Air Positive well nourished and well developed General Appearance ED: well developed HEENT Reports moist mucous membranes HEENT Narrative: Right tonsillar and soft palate edema. Mild deviation of the uvula to the left. Right TM visualized and clear. Cerumen noted in the canal. Eyes PERRL and EOMs intact bilaterally Neck Neck Narrative: Mild cervical lymphadenopathy. Chest Wall inspection of chest normal and palpation of chest normal Resp normal respiratory effort and clear to auscultation bilaterally Cardio regular rate and regular rhythm GI non-tender Palpation: soft Extremity normal to inspection Neuro oriented x3 and no sensory deficits noted Motor Exam: strength 5/5 throughout Psych mental status grossly normal Skin no rashes or lesions noted MDM MDM MDM Narrative Medical decision making narrative: IV line established. Labwork obtained to evaluate for leukocytosis, anemia, and electrolyte derangement. CT of the soft tissue neck with IV contrast obtained to evaluate for tonsillar abscess. Strep swab obtained. History & Record Review Discussion w/independent historian: Patient and Family Lab Data Attestation: I reviewed the patient's lab results. Labs: Laboratory Results - last 24 hr 08/14/23 10:17 WBC 15.5 H RBC 4.36 L Hgb 14.0 Hct 41.7 MCV 95.6 H MCH 32.1 H MCHC 33.6 RDW Std Deviation 41.2 RDW Coeff of Lori 11.8 Plt Count 297 MPV 9.2 Immature Gran % (Auto) 0.400 Neut % (Auto) 89.7 H Lymph % (Auto) 5.8 L [place] % (Auto) 4.0 Eos % (Auto) 0.0 Baso % (Auto) 0.1 Absolute Neuts (auto) 13.9 H Absolute Lymphs (auto) 0.90 Nucleated RBC % 0 Sodium 136 Potassium 4.5 Chloride 105 Carbon Dioxide 25.0 Anion Gap 6 BUN 18 Creatinine 0.96 Estim Creat Clear Calc 88.43 Est GFR (MDRD) Af Amer 101 Est GFR (MDRD) Non-Af 84 BUN/Creatinine Ratio 18.7 Glucose 142 H Calcium 9.3 Radiography Diagnostic Testing: Clinical Impression(s) from Imaging Studies Soft Tissue Neck CT 08/14/23 10:08 IMPRESSION: Right-sided acute tonsillitis associated with a 2.6 x 2.4 x 2.9 cm peritonsillar abscess. Atherosclerosis. Emphysema. Electronically Signed: Eli Gardner MD at 11:41 EDT , Treatment and Re-Evaluation :: CBC was a white count of 15.5 with 89% neutrophils. Hemoglobin is 14.0. Chemistry studies are unremarkable other than a glucose of 142. CT scan of the neck reveals a right-sided tonsillitis with a 2.6 x 2.4 x 2.9 cm peritonsillar abscess. Patient is given a dose of Unasyn. I did speak with Dr. Mujica, on-call for ENT. Patient is on Plavix, so Dr. Mujica will see the patient in consult with plan for needle aspiration of the abscess. I will speak with hospitalist regarding admission as well. Of note, patient states that his last dose of aspirin or Plavix was on August 09 as he had an upcoming biopsy on his chest scheduled. Discharge Plan Triage Chief Complaint: Sore Throat ED Provider: Nydia Rivers Dx/Rx/DC Orders Clinical Impression: Abscess, peritonsillar Prescriptions: No Action aspirin 81 mg tablet,delayed release (DR/EC) 81 mg PO DAILY Qty: 90 3RF Hold Instructions: surgery atorvastatin 10 mg tablet 10 mg PO QHS Qty: 90 3RF amlodipine 5 mg tablet 5 mg PO DAILY Qty: 90 3RF penicillin V potassium 500 mg tablet 500 mg PO BID 10 Days Qty: 20 0RF prednisone 20 mg tablet 40 mg PO DAILY 3 Days Qty: 6 0RF Rx Instructions: take with food telmisartan 80 mg tablet 80 mg PO DAILY Qty: 90 3RF clopidogrel 75 mg tablet 75 mg PO DAILY Qty: 90 3RF Hold Instructions: surgery Primary Care Provider: Jer Jacobo Referrals: Jer Jacobo MD [Primary Care Provider] - Disposition Disposition: Acute Care Hospital [facility]
[2023-08-14 10:25] LABS: Absolute Neutrophil Count 13.9 X10^3/uL (2.0-7.7); Basophil# 0.02 X10^3/uL; Basophil% 0.1 % (0-1); Hematocrit 41.7 % (40-54); Lymphocyte % 5.8 % (19-41); Mean Corp Hgb Conc 33.6 g/dL (32-36); Mean Corpuscular Hgb 32.1 pg (27.0-32.0); Mean Corpuscular Volume 95.6 fL (80-94); Mean Platelet Vol. 9.2 fl (6.2-12.0); Monocyte# 0.62 X10^3/uL; NRBC Flagged by Analyzer 0 % (0-5); Neutrophil # 13.87 X10^3/uL (2.7-7.7); Neutrophil % 89.7 % (47-70); Platelet Count 297 K/mm3 (150-450); RBC Distribution Width CV 11.8 % (11.6-14.6); RBC Distribution Width SD 41.2 fl (35.1-43.9); Red Blood Count 4.36 M/mm3 (4.6-6.2); White Blood Count 15.5 K/mm3 (4.4-11.0)
[2023-08-14 10:36] LABS: Anion Gap 6 (5-15); BUN 18 mg/dL (7-18); BUN/Creat Ratio 18.7 RATIO (10-20); Calcium,Total 9.3 mg/dL (8.5-10.1); Chloride 105 mmol/L (98-107); Creatinine, Serum 0.96 mg/dL (0.70-1.30); EST Glomerular Filtration Rate 84 mL/min (>60); Est Glom Filt Rate - Afr Amer 101 mL/min (>60); Estimated Creatinine Clearance 88.43 ml/min; Glucose 142 mg/dL (74-106); Potassium 4.5 mmol/L (3.5-5.1); Sodium Level 136 mmol/L (136-145)
[2023-08-14] MEDS: 0.9% Normal Saline (1000mL) 1,000 ML 150 ML IV (10:57)
[2023-08-14] MEDS: Ampicillin/Sulbactam 3 GM in 0.9% Normal Saline (100mL MB+) 100 ML IV ×3 (12:12→23:50)
--- NOTE | 2023-08-14 12:38 | HP.PCM.HOS_ITS ---
HPI - General General Date of Admission: 08/14/23 Date of Service: 08/14/23 Chief Complaint: Ear ache and sore throat HPI Narrative ALLI JEFF, is a 63 M who presents with earache and sore throat. Patient symptoms started 5 days prior to his admission was on medication. Got back the day prior was seen at an urgent care center diagnosed with pharyngitis prescribed antibiotics as well as steroid. Patient symptoms however did worsen necessitating patient presenting to the emergency department. Imaging studies on admission did show Right-sided acute tonsillitis associated with a 2.6 x 2.4 x 2.9 cm peritonsillar abscess.. The ENT surgeon on-call Dr. Lincoln was notified recommended for patient to be admitted to the hospitalist service with consultation placed to him for possible I&D. Of note patient is on Plavix for CAD which has been held 5 days prior to his admission for biopsy involving the suspected right breast hematoma from trauma at work [facility] Medical History Abnormal stress test Angina pectoris Atherosclerotic heart disease of [place] coronary artery without angina pectoris Breast mass, right Essential hypertension History of left heart catheterization (LHC) (~12/29/21) HLD (hyperlipidemia) Myalgia Presence of stent in coronary artery (~11/15/20) Psoriasis Psoriatic arthritis Smoker SOB (shortness of breath) STEMI (ST elevation myocardial infarction) Tobacco abuse Home Medications aspirin 81 mg tablet,delayed release 81 mg PO DAILY #90 tabs 12/10/22 [Rx Last Taken Unknown] clopidogrel 75 mg tablet 75 mg PO DAILY #90 tabs 01/04/23 [Rx Last Taken Unknown] telmisartan 80 mg tablet 80 mg PO DAILY #90 tabs 01/04/23 [Rx Last Taken 08/13/23] amlodipine 5 mg tablet 5 mg PO DAILY #90 tabs 08/02/23 [Rx Last Taken 08/13/23] atorvastatin 10 mg tablet 10 mg PO QHS #90 tabs 08/02/23 [Rx Last Taken 08/13/23] penicillin V potassium 500 mg tablet 500 mg PO BID 10 days #20 tabs 08/13/23 [Rx Last Taken 08/13/23] prednisone 20 mg tablet 40 mg (2 x 20 mg) PO DAILY 3 days #6 tabs 08/13/23 [Rx Last Taken 08/14/23] clobetasol 0.05 % topical cream 1 applic topical DAILY PRN KNEE IRRITATION 08/14/23 [History Last Taken Unknown] Allergy/AdvReac Type Severity Reaction Status Date / Time isosorbide AdvReac Intermediate Dizzy, Verified 08/14/23 09:05 lightheaded, short of breath lisinopril AdvReac Intermediate dry Verified 08/14/23 09:05 persistent cough Family History Mother Thyroid disorder Surgical History Presence of coronary angioplasty implant and graft (~11/15/20) Social History Smoking Status: Former smoker Tobacco: How many years used: 42 how long ago did patient quit smokin months alcohol intake: current details: occassional substance use type: does not use caffeine: Yes Type: coffee Number of servings: 1 ROS ROS Narrative GENERAL: denies fever, chills, night sweats, HEENT: Ear ache, sore throat RESPIRATORY: denies cough, sputum production, shortness of breath, CARDIAC: denies chest pain, palpitations, orthopnea, PND GASTROINTESTINAL: denies abdominal pain, nausea, vomiting, melena, GENITOURINARY: denies dysuria, urgency, frequency, heamaturia EXTREMITY: denies swelling MUSCULOSKELETAL: denies current joint pain or tenderness NEUROLOGIC: denies focal numbness, weakness, tingling HEMATOLOGIC: denies easy bruising and/or hemorrhage INTEGUMENT: denies rashes PSYCHIATRIC: denies suicidal or homicidal ideation Vital Signs Vital Signs Vital Signs: 08/14/23 09:06 Temperature 97.1 F L Temperature Source Temporal Pulse Rate 73 Respiratory Rate 18 Blood Pressure 135/75 H Blood Pressure Mean 95 Pulse Ox 93 Oxygen Delivery Method Room Air Weight Weight: 88.949 kg Body Mass Index (BMI) 28.1 Physical Exam Narrative GENERAL: cooperative HEENT: Atraumatic; erythema and swelling involving the right tonsillar EYES; Anicteric, Normal Conjunctiva NECK; supple, normal thyroid, RESPIRATORY: Diminished to auscultation CARDIOVASCULAR: Regular S1 S2, GI: soft, normoactive bowel sounds, : No Renal angle tenderness; EXTREMITIES: No edema, no clubbing, MUSCULOSKELETAL: no muscle wasting NEURO: Awake; no lateralizing signs. SKIN: No Rash PSYCH; Flat affect Results Lab / Micro Data 08/14/23 10:17 08/14/23 10:17 Labs: Laboratory Results - last 24 hr 08/14/23 10:17: WBC 15.5 H, RBC 4.36 L, Hgb 14.0, Hct 41.7, MCV 95.6 H, MCH 32.1 H, MCHC 33.6, RDW Std Deviation 41.2, RDW Coeff of Lori 11.8, Plt Count 297, MPV 9.2, Immature Gran % (Auto) 0.400, Neut % (Auto) 89.7 H, Lymph % (Auto) 5.8 L, [place] % (Auto) 4.0, Eos % (Auto) 0.0, Baso % (Auto) 0.1, Absolute Neuts (auto) 13.9 H, Absolute Lymphs (auto) 0.90, Nucleated RBC % 0, Sodium 136, Potassium 4.5, Chloride 105, Carbon Dioxide 25.0, Anion Gap 6, BUN 18, Creatinine 0.96, Estim Creat Clear Calc 88.43, Est GFR (MDRD) Af Amer 101, Est GFR (MDRD) Non-Af 84, BUN/Creatinine Ratio 18.7, Glucose 142 H, Calcium 9.3 Micro: Microbiology 08/14/23 10:15 Mucosa - Throat Streptococcus pyogenes (PCR) - Final Imaging Radiology Impression Soft Tissue Neck CT 08/14/23 10:08 IMPRESSION: Right-sided acute tonsillitis associated with a 2.6 x 2.4 x 2.9 cm peritonsillar abscess. Atherosclerosis. Emphysema. Electronically Signed: Eli Gardner MD at 11:41 EDT , Assessment & Plan Assessment/Plan (1) Abscess, peritonsillar: PLAN: Plan Patient is a 63-year-old gentleman presented with earache and sore throat imaging studies demonstrated right-sided acute tonsillitis with peritonsillar abscess 1. Acute tonsillitis with peritonsillar abscess ? Imaging studies obtained on admission did show Right-sided acute tonsillitis associated with a 2.6 x 2.4 x 2.9 cm peritonsillar abscess. Patient started on Unasyn in addition to pain meds admitted to regular nursing floor consultation placed to Dr. Cisco Lincoln with ENT for possible I&D 2. 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 disease ? With previous PCI. Patient is on Plavix held for biopsy involving a suspected right breast hematoma 3. Right breast hematoma ? Suspected to be secondary to trauma from work. Patient is scheduled to undergo biopsy 4. Hypertension - Blood pressure controlled, home medications continued with dose adjustment as needed 5. Dyslipidemia -Patient is on statin therapy, continued at home dose 6. Emphysema ? PET CAT scan findings. Patient has history of tobacco dependence. Currently does not smoke 7. DVT prophylaxis ? SCDs for now with plans to initiate chemoprophylaxis following patient procedure Time spent in the patient's overall evaluation,decision-making process, review of diagnostic data, adjustment of management, discussion with other providers, nursing nursing and ancillary staff involved in patient's care documentation, 55 minutes minutes Advance planning; did discuss with the patient and family regarding advanced directives as well as CODE STATUS. Did explain the various scenarios involved ( FULL CODE, DNR CCA, DNR CCA with no intubation, and DNR CC and what each meant) patient elected to remain full code with CPR and intubation if warranted. Order was placed. Time spent on discussion 16 minutes. Charges/Coding Visit Charges Inpatient E&M: 32574 Init Hosp L2 Procedures Hospitalists Procedures: 11355 Advncd Care Plan 30 Min
[2023-08-14 12:40] VITALS: BP 150/77; PULSE 68; RESP 17; O2SAT 97
[2023-08-14 13:42] VITALS: BP 152/77; PULSE 68; RESP 18; TEMP 36.6; O2SAT 97
[2023-08-14 14:53] VITALS: BMI 27.8
[2023-08-14 15:18] VITALS: BP 146/83; PULSE 66; RESP 16; TEMP 36.5; O2SAT 98
[2023-08-14 15:21] VITALS: BP 146/83; PULSE 66; RESP 16; TEMP 36.5; O2SAT 98
[2023-08-14] MEDS: Acetaminophen 500 MG Tablet 1000 MG PO ×2 (15:26→22:12)
--- NOTE | 2023-08-14 15:57 | PCM.PN.BLA ---
Progress Note Asked to see the patient for peritonsillar abscess 63 yo white male with 5 day history of right ear pain and sore throat in the abscence of hearing loss. He was seen at urgent care yesterday and treated with abx and steroids. He worsened and presented to the ER today. A CT reveals a right peritonsillar abscess PMH: Abnormal stress test Angina pectoris Atherosclerotic heart disease of [place] coronary artery without angina pectoris Breast mass, right Essential hypertension History of left heart catheterization (LHC) (~12/29/21) HLD (hyperlipidemia) Myalgia Presence of stent in coronary artery (~11/15/20) Psoriasis Psoriatic arthritis Smoker SOB (shortness of breath) STEMI (ST elevation myocardial infarction) Tobacco abuse Home Medications aspirin 81 mg tablet,delayed release 81 mg PO DAILY #90 tabs 12/10/22 [Rx Last Taken Unknown] clopidogrel 75 mg tablet 75 mg PO DAILY #90 tabs 01/04/23 [Rx Last Taken Unknown] telmisartan 80 mg tablet 80 mg PO DAILY #90 tabs 01/04/23 [Rx Last Taken 08/13/23] amlodipine 5 mg tablet 5 mg PO DAILY #90 tabs 08/02/23 [Rx Last Taken 08/13/23] atorvastatin 10 mg tablet 10 mg PO QHS #90 tabs 08/02/23 [Rx Last Taken 08/13/23] penicillin V potassium 500 mg tablet 500 mg PO BID 10 days #20 tabs 08/13/23 [Rx Last Taken 08/13/23] prednisone 20 mg tablet 40 mg (2 x 20 mg) PO DAILY 3 days #6 tabs 08/13/23 [Rx Last Taken 08/14/23] clobetasol 0.05 % topical cream 1 applic topical DAILY PRN KNEE IRRITATION 08/14/23 [History Last Taken Unknown] Allergy/AdvReac Type Severity Reaction Status Date / Time isosorbide AdvReac Intermediate Dizzy, Verified 08/14/23 09:05 lightheaded, short of breath lisinopril AdvReac Intermediate dry Verified 08/14/23 09:05 persistent cough Family History Mother Thyroid disorder Surgical History Presence of coronary angioplasty implant and graft (~11/15/20) Social History Smoking Status: Former smoker Tobacco: How many years used: 42 how long ago did patient quit smokin months alcohol intake: current details: occassional substance use type: does not use caffeine: Yes Type: coffee Number of servings: 1 ROS ROS Narrative GENERAL: denies fever, chills, night sweats, HEENT: Ear ache, sore throat RESPIRATORY: denies cough, sputum production, shortness of breath, CARDIAC: denies chest pain, palpitations, orthopnea, PND GASTROINTESTINAL: denies abdominal pain, nausea, vomiting, melena, GENITOURINARY: denies dysuria, urgency, frequency, heamaturia EXTREMITY: denies swelling MUSCULOSKELETAL: denies current joint pain or tenderness NEUROLOGIC: denies focal numbness, weakness, tingling HEMATOLOGIC: denies easy bruising and/or hemorrhage INTEGUMENT: denies rashes PSYCHIATRIC: denies suicidal or homicidal ideation PE: Awake alert nad +hot potato voice nose- no purulence M/OP- 2 cm trismus. +uvular deviation to the left. Significant fullness of the right peritonsillar area with erythema and edema of the mucosa. The right tonsil is 4+ and erythematous. The mucosa overlying the abscess is very thin. Neck- no adenopathy Procedure: Given his plavix and aspirin use (he held plavix 3 days ago) I elected to perform aspiration instead of an incision given his risk of severe hemorrhage with the anticoagulants. Cetacaine spray was sprayed on the mucosa overlying the abscess. After sufficient anesthesia, an 18 gauge needle was inserted into the abscess cavity. 3 cc of pus of was aspirated. Approximately another 5 cc of pus was expressed with the tongue blade. He tolerated this well without complications. Bleeding was self limited. A: right peritonsillar abscess now s/p aspiration P continue iv abx. check cultures. D/C home tomorrow if doing well. He should stay off of his plavix and aspirin in case he needs a formal incision (if he re collects).
[2023-08-14] MEDS: KCL 20MEQ in D5.45NS 20 MEQ/1,000 ML IV.SOLN. 150 MEQ IV ×2 (16:17→23:50)
[2023-08-14 20:45] VITALS: BP 152/68; PULSE 57; RESP 18; TEMP 36.7; O2SAT 96
[2023-08-14] MEDS: Losartan Potassium 100 MG Tablet PO (22:12)
[2023-08-14] MEDS: Atorvastatin Calcium 10 MG Tablet PO (22:12)
[2023-08-14] MEDS: amLODIPine 5 MG Tablet PO (22:13)
[2023-08-15 03:00] VITALS: BP 143/64; PULSE 56; RESP 16; TEMP 36.5; O2SAT 97
[2023-08-15] MEDS: Acetaminophen 500 MG Tablet 1000 MG PO (05:59)
[2023-08-15] MEDS: Ampicillin/Sulbactam 3 GM in 0.9% Normal Saline (100mL MB+) 100 ML IV (05:59)
[2023-08-15 06:06] LABS: Absolute Lymphocyte Count 0.99 X10^3/uL (0.83-4.51); Basophil# 0.01 X10^3/uL; Basophil% 0.1 % (0-1); Hematocrit 40.7 % (40-54); Hemoglobin 13.6 g/dL (13.0-16.5); Lymphocyte # 0.99 X10^3/ul (0.83-4.51); Mean Corp Hgb Conc 33.4 g/dL (32-36); Mean Corpuscular Hgb 32.2 pg (27.0-32.0); Mean Corpuscular Volume 96.2 fL (80-94); Mean Platelet Vol. 9.6 fl (6.2-12.0); Monocyte# 0.36 X10^3/uL; Monocyte% 2.9 % (0-10); NRBC Flagged by Analyzer 0 % (0-5); Neutrophil # 10.98 X10^3/uL (2.7-7.7); Neutrophil % 88.4 % (47-70); Platelet Count 309 K/mm3 (150-450); RBC Distribution Width CV 11.8 % (11.6-14.6); RBC Distribution Width SD 41.2 fl (35.1-43.9); Red Blood Count 4.23 M/mm3 (4.6-6.2); White Blood Count 12.4 K/mm3 (4.4-11.0)
[2023-08-15 06:26] LABS: Anion Gap 6 (5-15); BUN 15 mg/dL (7-18); BUN/Creat Ratio 17.6 RATIO (10-20); Calcium,Total 8.9 mg/dL (8.5-10.1); Chloride 107 mmol/L (98-107); Creatinine, Serum 0.85 mg/dL (0.70-1.30); EST Glomerular Filtration Rate 96 mL/min (>60); Est Glom Filt Rate - Afr Amer 116 mL/min (>60); Estimated Creatinine Clearance 99.42 ml/min; Glucose 207 mg/dL (74-106); Magnesium 2.3 mg/dL (1.6-2.6); Phosphorus 2.6 mg/dL (2.5-4.9); Potassium 4.2 mmol/L (3.5-5.1); Sodium Level 137 mmol/L (136-145)
--- NOTE | 2023-08-15 08:36 | PCM.PN.BLA ---
Progress Note The patient is feeling better today. His right ear pain is gone. His throat is still scratchy but 150% better AVss wbc =12 PE: voice normal uvula still with leftward shift. The peritonsillar area is still edematous but less so. Expression of the are did not reveal any purulence through the aspiration hole which is still open. A: Right peritonsillar abscess, much improved P: Continue abx. Discharge per primary team. Continue oral antibiotics on discharge. Follow up next week.
[2023-08-15 08:43] VITALS: BP 137/67; PULSE 56; RESP 18; TEMP 36.6; O2SAT 96
[2023-08-15] MEDS: KCL 20MEQ in D5.45NS 20 MEQ/1,000 ML IV.SOLN. 150 MEQ IV (09:36)
[2023-08-15] MEDS: 0.9% Saline Lock 10 ML Syringe IV (09:48)
--- NOTE | 2023-08-15 10:04 | DS.PCM_ITS ---
Providers Date of Admission: 08/14/23 Date of Discharge: 08/15/23 Primary Care Physician: Dr. Jer Jacobo MD Consultations 08/14/23 14:52 Consult: ENT Routine Consulting Provider: Cisco Lincoln Reason for Consult: Right peritonsillar abscess EMERGENT Consult: Yes Notified: Yes Date Notified: 08/14/23 Time Notified: 13:17 Method of Notification: ED Physician Initiated Reason For Visit: ACUTE TONSILLAR ABSCESS Diagnosis Discharge Diagnosis (1) Abscess, peritonsillar: Status: Acute Code(s): J36 - Peritonsillar abscess Medications at Discharge Home Medications aspirin 81 mg tablet,delayed release 81 mg PO DAILY #90 tabs 12/10/22 clopidogrel 75 mg tablet 75 mg PO DAILY #90 tabs 01/04/23 telmisartan 80 mg tablet 80 mg PO DAILY #90 tabs 01/04/23 amlodipine 5 mg tablet 5 mg PO DAILY #90 tabs 08/02/23 atorvastatin 10 mg tablet 10 mg PO QHS #90 tabs 08/02/23 clobetasol 0.05 % topical cream 1 applic topical DAILY PRN KNEE IRRITATION 08/14/23 amoxicillin 875 mg-potassium clavulanate 125 mg tablet 1 tab PO BID #24 tabs 08/15/23 Hospital Course Operations - (Bedside aspiration of left peritonsillar abscess) Procedures - (CT soft tissues of neck) Summary of Care Provided Minutes Spent on Discharge: 37 Hospital Course: Mr. Kerr is a 63-year-old white male who presents emergency department at [facility] on 08/14/2023 due to a earache and a sore throat on the right side of his neck. He was seen the day prior to presentation in urgent care and was diagnosed with pharyngitis. He was prescribed penicillin V and placed on steroids. His symptoms worsen and he presents emergency department for further evaluation. Vital signs on presentation were unremarkable. CBC showed a white count of 15.5 with a left shift having an 89.7% neutrophilia. His chemistry panel was unremarkable. Rapid strep was negative in the emergency department. CT imaging of the soft tissues of the neck was performed and demonstrated a right-sided acute tonsillitis with an associated 2.6 x 2.4 x 2.9 cm peritonsillar abscess as well as atherosclerosis and emphysema. He was admitted to the medical floor and placed on antibiotics utilizing Unasyn with pain medications and antiemetics as needed. A consult to ENT was placed and he was evaluated by Dr. Cisco Mujica on the same day of admission. At baseline the patient is on aspirin and Plavix but he began holding it for another procedure prior to presentation (3 days at admission). Given only 3 days had gone by since he had held his dual antiplatelet therapy aspiration was elected to be performed by ENT to avoid complication. An 18-gauge needle was inserted into the abscess cavity and 3 cc of pus was aspirated and another 5 cc was expressed with a tongue blade. The patient tolerated the procedure well and no complications were noted. Pus was sent for cultures and the patient was maintained on IV antibiotics. It was recommended the patient stay off his aspirin and Plavix until the point that he can be reevaluated by ENT in case he really develops abscess after discharge. By the a.m. of 08/15/2023 the patient was speaking much better and felt 150% improved from the day previous per the patient. It was felt that he could go home as he was tolerating clear liquid diet. He was recommended continuing soft diet until he can be reevaluated by ENT and that was recommended to be done early next week. He will be on antibiotics with Augmentin for another 12 days for completion of 14 days of t reatment. I did recommend he discontinue steroids as these are likely to be not beneficial at this point. A prescription for the Augmentin was sent to his local pharmacy and he was instructed to continue to hold his aspirin and Plavix until evaluated by Dr. Mujica next week. Patient was discharged home in stable condition on 08/15/2023. Discharge diagnoses: Right peritonsillar abscess Leukocytosis Right ear pain-resolved CAD Right breast hematoma-biopsy tomorrow Hypertension Hyperlipidemia Emphysematous changes on CAT scan History of tobacco abuse Physical Exam Narrative Patient states he is feeling much better overall. States his swallowing is improved considerably. Still his throat is mildly scratchy but overall markedly improved. Patient is anxious to go home. Const alert, oriented x3, no apparent distress, average body habitus, no limitations and well nourished Constitutional Narrative: Upper middle-aged, white male, sitting up in bed watching television, appears comfortable and nontoxic, voice quality is normal General Appearance: cooperative, comfortable, well kempt and well developed Orientation / Consciousness: awake, oriented to person, oriented to place and oriented to time Exam Limitations: no limitations HEENT normocephalic, head/scalp atraumatic, hearing grossly normal bilaterally and moist oral mucous membranes HEENT Narrative: Mallampati is 3, dentures in place, slight right-sided peritonsillar edema with mild uvula shift leftward, no purulent drainage noted Eyes PERRL, EOMs intact bilaterally and conjunctivae normal Eyes Narrative: No scleral icterus Neck no lymphadenopathy and supple Neck Narrative: Mild tenderness on right side of anterior neck in the posterior submandibular region Resp normal respiratory effort, no retractions, no use of accessory muscles and clear to auscultation bilaterally Auscultation: Negative for rales, rhonchi or wheezes Cardio regular rate, regular rhythm, S1 normal heart sound, S2 normal heart sound, no murmurs, no rub, no gallops and no clicks GI normal to inspection, nondistended, normoactive bowel sounds, soft to palpation and non-tender Extremity no clubbing, cyanosis or edema Extremity Narrative: Pedal pulses are 2+ Skin no rashes or lesions noted, no wounds and skin turgor normal Neuro oriented x3, CN's II-XII intact bilaterally, moves all extremities and no focal motor deficits Speech: speech normal Psych affect normal Psych Narrative: Very pleasant, eye contact is good, patient interacts appropriately Weight / BMI Weight Weight: 88.042 kg Body Mass Index (BMI) 27.8 ABG / Lab / Microbiology Data 08/15/23 05:31 08/15/23 05:31 Laboratory: Laboratory Results - last 24 hr 08/14/23 10:17: WBC 15.5 H, RBC 4.36 L, Hgb 14.0, Hct 41.7, MCV 95.6 H, MCH 32.1 H, MCHC 33.6, RDW Std Deviation 41.2, RDW Coeff of Lori 11.8, Plt Count 297, MPV 9.2, Immature Gran % (Auto) 0.400, Neut % (Auto) 89.7 H, Lymph % (Auto) 5.8 L, [place] % (Auto) 4.0, Eos % (Auto) 0.0, Baso % (Auto) 0.1, Absolute Neuts (auto) 13.9 H, Absolute Lymphs (auto) 0.90, Nucleated RBC % 0, Sodium 136, Potassium 4.5, Chloride 105, Carbon Dioxide 25.0, Anion Gap 6, BUN 18, Creatinine 0.96, Estim Creat Clear Calc 88.43, Est GFR (MDRD) Af Amer 101, Est GFR (MDRD) Non-Af 84, BUN/Creatinine Ratio 18.7, Glucose 142 H, Calcium 9.3 08/15/23 05:31: WBC 12.4 H, RBC 4.23 L, Hgb 13.6, Hct 40.7, MCV 96.2 H, MCH 32.2 H, MCHC 33.4, RDW Std Deviation 41.2, RDW Coeff of Lori 11.8, Plt Count 309, MPV 9.6, Immature Gran % (Auto) 0.600, Neut % (Auto) 88.4 H, Lymph % (Auto) 8.0 L, [place] % (Auto) 2.9, Eos % (Auto) 0.0, Baso % (Auto) 0.1, Absolute Neuts (auto) 11.0 H, Absolute Lymphs (auto) 0.99, Nucleated RBC % 0, Sodium 137, Potassium 4.2, Chloride 107, Carbon Dioxide 24.0, Anion Gap 6, BUN 15, Creatinine 0.85, Estim Creat Clear Calc 99.42, Est GFR (MDRD) Af Amer 116, Est GFR (MDRD) Non-Af 96, BUN/Creatinine Ratio 17.6, Glucose 207 H, Calcium 8.9, Phosphorus 2.6, Magnesium 2.3 Microbiology: Microbiology 08/14/23 10:15 Mucosa - Throat Streptococcus pyogenes (PCR) - Final Radiography Diagnostic Testing: Radiology Impression Soft Tissue Neck CT 08/14/23 10:08 IMPRESSION: Right-sided acute tonsillitis associated with a 2.6 x 2.4 x 2.9 cm peritonsillar abscess. Atherosclerosis. Emphysema. Electronically Signed: Eli Gardner MD at 11:41 EDT , D/C Instructions Discharge Diet: Soft diet Discharge Activity: Return to Normal Activity Return to work on: 08/16/23 Meaningful Use Info Meaningful Use Meaningful Use Diagnoses (Choose all that apply): None applicable Ischemic Stroke Statin Dosing Therapy Reference: STATIN DOSE THERAPY REFERENCE: * Patients > 75 years receive moderate or high dose statin therapy. * Patients 75 years or YOUNGER should receive HIGH intensity statin dose unless contraindicated. You will be required to document reason for non-treatment if statin daily dose does not meet guidelines. HIGH DOSE STATIN THERAPY DAILY Atorvastatin > than or = to 40 mg Rosuvastatin > than or = to 20 mg Amlodipine + Atorvastatin > than or = to 2.5/40 mg Ezetimibe + Simvastatin 10/80 mg Simvastatin 80mg Discharge Plan Admission Admit Date/Time: 08/14/23 12:29 Primary Reason for Your Visit: Earache and Sore Throat Attending Provider: Dorene Rodriguez Primary Care Provider: Jer Jacobo Consulting Providers: Cisco Lincoln; Eleno Quijano Instructions Additional Instructions / Restrictions: 1. Continue to use Tylenol as needed for pain Discharge Orders/Prescriptions Prescriptions: New amoxicillin-pot clavulanate 875-125 mg tablet 1 tab PO BID Qty: 24 0RF Continued atorvastatin 10 mg tablet 10 mg PO QHS Qty: 90 3RF amlodipine 5 mg tablet 5 mg PO DAILY Qty: 90 3RF clobetasol 0.05 % cream 1 applic topical DAILY PRN (Reason: KNEE IRRITATION) telmisartan 80 mg tablet 80 mg PO DAILY Qty: 90 3RF Held aspirin 81 mg tablet,delayed release (DR/EC) 81 mg PO DAILY Qty: 90 3RF Hold Instructions: Do not start until instructed by Dr. Mujica clopidogrel 75 mg tablet 75 mg PO DAILY Qty: 90 3RF Hold Instructions: Do not start until instructed to do so by Dr. Mujica Discontinued penicillin V potassium 500 mg tablet 500 mg PO BID 10 Days Qty: 20 0RF prednisone 20 mg tablet 40 mg PO DAILY 3 Days Qty: 6 0RF Rx Instructions: take with food Referrals / Follow Up: Jer Jacobo MD [Primary Care Provider] - See Referral Note (As needed) Cisco Lincoln MD [Med Staff - Active Staff] - See Referral Note (Call later today or tomorrow to set up appointment to be seen early next week and hold aspirin and Plavix until reevaluated by ENT) Disposition Disposition (needs filled in before D/C Order can be placed): Home, Self Care Charges/Coding Visit Charges Inpatient E&M: 61842 Disch Hosp >30min
--- NOTE | 2023-08-15 10:44 | PHA.DC.MC.R ---
Pharmacy [facility] Service has performed discharge medication reconciliation and counseling for this patient. 1. AUGMENTIN 875MG 1T PO BID X 12 DAYS The patient's discharge medication list was reviewed for discrepancies and discrepancies were resolved. The patient was counseled on the following discharge medications and changes in medications for homegoing were reviewed. The Reason for Use, instructions for use, and potential side effects were reviewed for all new medications. The patient's questions regarding all of their medications were answered. The patient was able to verbally demonstrate an understanding of their discharge medications. Medications at Discharge Home Medications aspirin 81 mg tablet,delayed release 81 mg PO DAILY #90 tabs 12/10/22 clopidogrel 75 mg tablet 75 mg PO DAILY #90 tabs 01/04/23 telmisartan 80 mg tablet 80 mg PO DAILY #90 tabs 01/04/23 amlodipine 5 mg tablet 5 mg PO DAILY #90 tabs 08/02/23 atorvastatin 10 mg tablet 10 mg PO QHS #90 tabs 08/02/23 clobetasol 0.05 % topical cream 1 applic topical DAILY PRN KNEE IRRITATION 08/14/23 amoxicillin 875 mg-potassium clavulanate 125 mg tablet 1 tab PO BID #24 tabs 08/15/23
--- NOTE | 2023-08-15 10:54 | CASEMGMT ---
JESSIE CAGLE Assessment: Face to Face with pt for initial transition planning/care coordination assessment. RN GURJIT introduced self and role at [facility], pt voices understanding and consents to assessment. Pt is A&O x4 and answers all questions appropriately at this time. Pt lying in bed in no distress. Care providers, pharmacy, and demographics verified/updated. Admitting Dx:acute tonsillar abscess PCP:Donnell Specialists:Jose Alberto, cardio; [facility]; TEO Lincoln Preferred Pharmacy:[facility] Insurance:[employer] Prescription Benefit: yes LNOK:Noreen Kerr, Living Arrangements: Pt lives with in a two story home with 1 step to enter. Pt reports he is I in ADL's and denies concerns at home. Transportation: Pt drives self and denies concerns with transportation. DME:Denies HHC/SNF:Denies hx of Pt states no concerns with going home at time of dc. Pt states no further concerns/needs. CM to follow. Advised pt to ask CM if any further question/concerns/needs arise, voices understanding. Pt Goal:Home Plan:Home
== END 2023-08-15 11:50 | disposition home or self-care (01) | DRG 153 ==
LOC: ED 12:24 → MS3 08-15 06:52
PROVIDERS: Admitting Provider Internal Medicine; Emergency Provider Emergency Medicine; PCP Family Medicine; Visit Provider Internal Medicine
DX: J36 Peritonsillar abscess (principal); L40.50 Arthropathic psoriasis, unspecified; J43.9 Emphysema, unspecified; E78.5 Hyperlipidemia, unspecified; I10 Essential (primary) hypertension; I25.10 Atherosclerotic heart disease of native coronary artery without angina pectoris; I25.2 Old myocardial infarction; Z79.01 Long term (current) use of anticoagulants; Z79.899 Other long term (current) drug therapy; Z79.82 Long term (current) use of aspirin; Z95.5 Presence of coronary angioplasty implant and graft; Z87.891 Personal history of nicotine dependence
CPT/HCPCS: 36415; 70491; 80048; 83735; 84100; 85025; 87070; 87077; 87205; 87651; 96361; 96365; 96366; 96375; 96376; 99221; 99284; 99406; J7030; Q9967; A4216; G0378; J0295

== ENCOUNTER 2023-08-16 16:36 | Outpatient (CLI) | payer OTHER, SELFPAY ==
[2021-03-30 09:40] VITALS: BMI 25.4
--- NOTE | 2023-08-16 13:00 | BRBX_PTH ---
PATIENT: ALLI JEFF LOC: [facility] U#:[id number] AGE/SX: 63/M ROOM: RE08/16/[address]: Dr. Lia Mohan MD : 1960 BED: DIS: 08/16/2023 SPEC #: [id number] RECD: 08/16/23 16:09 STATUS: RONNY RO #: [id number] SARA: 08/16/23 13:[address]: Lia Mohan DEPT: SURGICAL PATHOLOGY RECD BY: Rachana Gil ENTERED: 08/17/23 07:19 SP TYPE: BREAST BX OTHR DR: Dr. Jer Jacobo MD Tissues: Right breast, NOS Procedures: Surgery Specimen Level IV HEADER OPERATION: Biopsy of right breast density PRE-OP DIAGNOSIS: Right breast density TISSUE SUBMITTED: Right breast tissue MICROSCOPIC DIAGNOSIS Right breast tissue, core biopsy: Consistent with gynecomastia. SJ/mr 08/18/23 MICROSCOPIC DESCRIPTION Slides are reviewed. GROSS DESCRIPTION Received in fixative is one container labeled with the patient's name and designated Right breast tissue. The specimen consists of multiple irregular fragments of light kiser soft tissue that in aggregate measure 1.5 x 0.5 x 0.2 cm. The specimen is totally submitted in one cassette. mr 08/17/23 TC:5 CPT:69872
== END 2023-08-16 23:59 | disposition home or self-care (01) ==
LOC: LABSPEC 16:41
PROVIDERS: PCP Family Medicine; Referring Provider Surgery; Visit Provider Surgery
DX: N62 Hypertrophy of breast (principal)
CPT/HCPCS: 88305

== ENCOUNTER 2023-08-17 15:38 | Inpatient (IN) | payer OTHER, SELFPAY ==
[2021-03-30 09:40] VITALS: BMI 25.4
[2023-08-17] VITALS (14 sets, daily range): BP systolic 130–184; BP diastolic 64–116; PULSE 53–72; RESP 12–21; TEMP 36.6–37; O2SAT 93–99; BMI 28.0; BMI 27.7
[2023-08-17] MEDS: Heparin Injection (Vial) 5,000 UNIT/ML VIAL 4000 UNIT IV (15:41)
[2023-08-17] MEDS: TICAGRELOR 90 MG TABLET 180 MG PO (15:41)
[2023-08-17] MEDS: Aspirin 81 MG TAB.CHEW 324 MG PO (15:41)
--- NOTE | 2023-08-17 15:43 | EDS_ITS ---
HPI History of Present Illness Chief Complaint: Chest Pain Informant: patient Onset/Context/Timing Onset: Today and Hours (1) Activity at onset: sudden Timing: Continuous Quality: Positive for Tightness Location: Substernal Worsened By: Nothing Relieved By: Nothing Associated Symptoms: Positive for Diaphoresis; Negative for Nausea, Vomiting, Dyspnea, Cough, Fever, Lightheadedness, Acid Reflux or Palpitations Narrative Narrative: Patient presents with chest pain that began approximately 1 hour prior to arrival. Patient states he was doing some yard work outside when the pain began. Patient describes it as a tightness across his chest. Patient states it radiates into his shoulder and into his jaw. Patient admits to some mild diaphoresis. Patient denies any nausea or vomiting. Patient denies any shortness of breath. Patient states he is normally on Plavix but has not taken Plavix in the last 5 days because he had a abscess drained as well as a breast biopsy recently. CVD Risk Factors: Positive for Hypertension [facility] Medical History Abnormal stress test Angina pectoris Atherosclerotic heart disease of enterprise coronary artery without angina pectoris Breast mass, right Essential hypertension History of left heart catheterization (LHC) (~12/29/21) HLD (hyperlipidemia) Myalgia Presence of stent in coronary artery (~11/15/20) Psoriasis Psoriatic arthritis Smoker SOB (shortness of breath) STEMI (ST elevation myocardial infarction) Tobacco abuse Home Medications aspirin 81 mg tablet,delayed release 81 mg PO DAILY #90 tabs 12/10/22 [Rx Last Taken Unknown] clopidogrel 75 mg tablet 75 mg PO DAILY #90 tabs 01/04/23 [Rx Last Taken Unknown] telmisartan 80 mg tablet 80 mg PO DAILY #90 tabs 01/04/23 [Rx Last Taken 08/13/23] amlodipine 5 mg tablet 5 mg PO DAILY #90 tabs 08/02/23 [Rx Last Taken 08/13/23] atorvastatin 10 mg tablet 10 mg PO QHS #90 tabs 08/02/23 [Rx Last Taken 08/13/23] clobetasol 0.05 % topical cream 1 applic topical DAILY PRN KNEE IRRITATION 08/14/23 [History Last Taken Unknown] amoxicillin 875 mg-potassium clavulanate 125 mg tablet 1 tab PO BID #24 tabs 08/15/23 [Rx Last Taken Unknown] Allergy/AdvReac Type Severity Reaction Status Date / Time isosorbide AdvReac Intermediate Dizzy, Verified 08/17/23 15:47 lightheaded, short of breath lisinopril AdvReac Intermediate dry Verified 08/17/23 15:47 persistent cough Family History Mother Thyroid disorder Surgical History History of coronary artery stent placement Presence of coronary angioplasty implant and graft (~11/15/20) Social History Smoking Status: Former smoker Tobacco: How many years used: 42 how long ago did patient quit smokin months alcohol intake: current details: occassional substance use type: does not use caffeine: Yes Type: coffee Number of servings: 1 ROS ROS ED Constitutional Constitutional ED: Reports sweats; Denies chills or fever(s) Eyes Eyes: Denies blurry vision or change in vision ENT ENT ED: Denies rhinorrhea or sore throat Cardiovascular Cardiovascular: Reports chest pain; Denies palpitations Respiratory/Chest Respiratory/Chest: Denies cough or dyspnea Gastrointestinal Gastrointestinal: Denies abdominal pain, nausea or vomiting Genitourinary Genitourinary ED: Denies dysuria or hematuria Musculoskeletal Musculoskeletal: Denies back pain or neck pain Integumentary Denies abscess or rash Neurologic Neurologic: Denies headache(s) or weakness Allergic/Immunologic Allergic/Immunologic ED: Denies mouth swelling or urticaria EXAM Physical Exam Const Positive well nourished and well developed General Appearance ED: well developed and NAD HEENT Reports moist mucous membranes Neck supple and no JVD Resp normal respiratory effort and clear to auscultation bilaterally Cardio regular rate and regular rhythm GI soft to palpation, non-tender and non-distended Neuro oriented x3, CN's II-XII intact bilaterally and no sensory deficits noted Sensorium / Orientation: awake and alert Motor Exam: strength 5/5 throughout Psych mental status grossly normal Heart Score History: Highly Suspicious ECG: Significant ST-Depression Age: >45 - <65 years Risk Factors: >/= 3 Risk Factors or History of CAD Score: 7 MDM MDM MDM Narrative Medical decision making narrative: Prehospital STEMI was called. Case was discussed with Dr. Abrams cardiac in [facility]. He will see the patient in the [facility]. Patient was given aspirin, heparin, and Brilinta. [facility] was ready and the patient was taken there. EKG was obtained to assess for cardiac dysrhythmia and cardiac ischemia. CBC was obtained to assess for leukocytosis and anemia. Basic metabolic profile was obtained to assess for electrolyte abnormality and renal function. PT with INR and PTT were obtained to assess for coagulopathy. High-sensitivity troponin was obtained to assess for cardiac ischemia. EKG Initial EKG: Attestation: I personally reviewed and interpreted this EKG as follows: Interpretation: Sinus Rhythm (73), S-T Elevation (II, III, and aVF) and S- T Depression (I, aVL, V2, V3, V4, V5.) Comments: EKG was obtained. On my independent interpretation, it shows normal sinus rhythm with a rate of 73. AR interval was normal at 168 ms. QRS interval was normal at 90 ms. QTc interval was normal at 398 ms. [place] was normal at 66. There is ST elevation in leads II, III, and aVF. There are reciprocal changes in leads I, aVL, and V2 through V5. Prior EKG tracings: available for review Prior: Changed (The ST elevation is new compared to previous EKG dated 11/18/2021) Management Discussion w/another healthcare provider: Hospitalist and Project Intern Treatment and Re-Evaluation :: Patient was prepped for [employer] in the emergency department. Patient was transferred to the [facility]. Case was discussed with the hospitalist. She will admit the patient to her service after patient goes to the [facility] [employer] [facility]. Patient understood and was agreeable with the plan. All questions were answered. Discharge Plan Triage Chief Complaint: Chest Pain ED Provider: Jer Myers Dx/Rx/DC Orders Clinical Impression: Acute ST elevation myocardial infarction (STEMI), Essential hypertension Prescriptions: No Action aspirin 81 mg tablet,delayed release (DR/EC) 81 mg PO DAILY Qty: 90 3RF Hold Instructions: Do not start until instructed by Dr. Mujica atorvastatin 10 mg tablet 10 mg PO QHS Qty: 90 3RF amlodipine 5 mg tablet 5 mg PO DAILY Qty: 90 3RF clobetasol 0.05 % cream 1 applic topical DAILY PRN (Reason: KNEE IRRITATION) amoxicillin-pot clavulanate 875-125 mg tablet 1 tab PO BID Qty: 24 0RF telmisartan 80 mg tablet 80 mg PO DAILY Qty: 90 3RF clopidogrel 75 mg tablet 75 mg PO DAILY Qty: 90 3RF Hold Instructions: Do not start until instructed to do so by Dr. Mujica Primary Care Provider: Jer Jacobo Referrals: Jer Jacobo MD [Primary Care Provider] - Disposition Disposition: Acute Care Hospital [facility]
--- NOTE | 2023-08-17 15:46 | HP.PCM_ITS ---
HPI - General General Date of Admission: 08/17/23 Date of Service: 08/17/23 Chief Complaint: chest pain HPI Narrative ALLI JEFF, is a 63 M with a PMH with a PMH as outlined who was admitted via the ED on 08/17/2023 with a complaint of chest pain which started about an hour prior to him coming in. He was out doing some yard work and started having chest pain. The chest pain was pressure-like and radiated to his shoulder and his jaw he had associated mild sweating. He denied any nausea vomiting or shortness of breath. Patient was post to be on Plavix but not taking his Plavix about 5 days as he said he was post to have a breast biopsy done and had also had an abscess drained. Previous times otherwise negative. EMS was called and EKG done by EMS showed inferior ST elevation AR. STEMI alert was called. Patient was given asp irin and heparin as well as Brilinta in the ED and he was sent emergently to the [facility] for cardiac catheterization. Patient was seen in the ICU after cardiac cath. His was by his bedside. He had no active complaints. He felt much better. Vitals were stable. Review of systems otherwise negative. CBC showed hemoglobin of 13.6 with platelets of 415 and WBC of 12.1. INR was 1.1. Chemistry was significant for creatinine of 1.81 and initial troponin of 100 glucose of 140. He has been admitted to be managed for acute ST elevation AR. [facility] Medical History Abnormal stress test Angina pectoris Atherosclerotic heart disease of [place] coronary artery without angina pectoris Breast mass, right Essential hypertension History of left heart catheterization (LHC) (~12/29/21) HLD (hyperlipidemia) Myalgia Presence of stent in coronary artery (~11/15/20) Psoriasis Psoriatic arthritis Smoker SOB (shortness of breath) STEMI (ST elevation myocardial infarction) Tobacco abuse Home Medications aspirin 81 mg tablet,delayed release 81 mg PO DAILY #90 tabs 12/10/22 [Rx Last Taken Unknown] clopidogrel 75 mg tablet 75 mg PO DAILY #90 tabs 01/04/23 [Rx Last Taken Unknown] telmisartan 80 mg tablet 80 mg PO DAILY #90 tabs 01/04/23 [Rx Last Taken 08/16/23] amlodipine 5 mg tablet 5 mg PO DAILY #90 tabs 08/02/23 [Rx Last Taken 08/16/23] atorvastatin 10 mg tablet 10 mg PO QHS #90 tabs 08/02/23 [Rx Last Taken 08/16/23] clobetasol 0.05 % topical cream 1 applic topical DAILY PRN KNEE IRRITATION 08/14/23 [History Last Taken Unknown] amoxicillin 875 mg-potassium clavulanate 125 mg tablet 1 tab PO BID #24 tabs 08/15/23 [Rx Last Taken 08/17/23] Allergy/AdvReac Type Severity Reaction Status Date / Time isosorbide AdvReac Intermediate Dizzy, Verified 08/17/23 15:47 lightheaded, short of breath lisinopril AdvReac Intermediate dry Verified 08/17/23 15:47 persistent cough Family History Mother Thyroid disorder Surgical History History of coronary artery stent placement Presence of coronary angioplasty implant and graft (~11/15/20) Social History Smoking Status: Former smoker Tobacco: How many years used: 42 how long ago did patient quit smokin months alcohol intake: current details: occassional substance use type: does not use caffeine: Yes Type: coffee Number of servings: 1 ROS Review of Systems ROS Unobtainable: Denies due to encephalopathy Constitutional Constitutional: Denies anorexia, chills, fatigue, fever(s), malaise or weakness Eyes Eyes: Denies change in vision ENT HEENT: Denies dysphagia or headache(s) Cardiovascular Cardiovascular: Reports chest pain; Denies edema, orthopnea, palpitations, paroxysmal nocturnal dyspnea or syncope Respiratory/Chest Respiratory/Chest: Denies cough, shortness of breath at rest or shortness of breath with exertion Gastrointestinal Gastrointestinal: Denies abdominal pain, constipation, nausea or vomiting Genitourinary Genitourinary: Denies dysuria Neurologic Neurologic: Denies confusion, dizziness, focal weakness, headache(s), lack of coordination or numbness Psychiatric Psychiatric: Denies anxiety Vital Signs Vital Signs Vital Signs: 08/17/23 15:39 Temperature 98.6 F Temperature Source Temporal Pulse Rate 72 Respiratory Rate 16 Blood Pressure 184/116 H Blood Pressure Mean 138 Pulse Ox 96 Oxygen Delivery Method Room Air Weight Weight: 195 lb 1.745 oz Body Mass Index (BMI) 28.0 Physical Exam Const alert, oriented x3, no apparent distress and well nourished General Appearance: cooperative and well developed HEENT normocephalic, head/scalp atraumatic, moist oral mucous membranes and oropharynx normal Mouth: dry mucous membranes Eyes PERRL and EOMs intact bilaterally Neck no lymphadenopathy and supple Lymph Lymphatic: no lymphadenopathy noted and no lymphedema noted Resp normal respiratory effort, normal air movement and clear to auscultation bilaterally Cardio regular rate, regular rhythm, S1 normal heart sound, S2 normal heart sound and no murmurs GI normal to inspection, nondistended, normoactive bowel sounds, soft to palpation, non-tender and non-distended Extremity normal capillary refill, no clubbing, cyanosis or edema and no calf tenderness General Extremity: no tenderness to palpation of joints or extremities Skin Skin Narrative: has intact dressing over right breast, at site of breast biopsy 1 day ago Neuro CN's II-XII intact bilaterally, no focal motor deficits, no sensory deficits noted and deep tendon reflexes 2+ bilaterally Motor Exam: strength 5/5 throughout Psych thought process normal, cooperative and affect normal Appearance: appropriate Results Lab / Micro Data 08/17/23 15:33 08/17/23 15:33 Assessment & Plan Assessment/Plan (1) Acute ST elevation myocardial infarction (STEMI): PLAN: Plan #Acute inferior STEMI * admitted with a complaint of chest pain and found to have inferior STEMI * EKG showed acute ST elevation in inferior leads * sent emergently to the [facility] where cardiac cath showed 100% in-stent thrombosis of the mid right proximal diagonal artery and LVEF of 60%. He had successful PTCA with drug-eluting stent insertion to the mid right proximal diagonal artery. * Patient had stopped taking his Plavix about 5 days prior to admission impression for the breast biopsy he had yesterday. To be on aspirin indefinitely and to be on Plavix for at least 12 months. High intensity statin. * 2D echo ordered for tomorrow. * cardiology on board * # Hypertension: On amlodipine and telmisartan. IV hydralazine as needed. #History of CAD s/p stents: * had drug-eluting stents to the mid RCA and mid right PDA in 2020. * Was on Plavix and statin plus aspirin. Stop taking the Plavix about 5 days prior as stated above. * Now presenting with ST elevation AR. Management as above. * * #Right breast mass: S/p breast biopsy 1 day ago. Follow-up with general surgery for biopsy results. #Recent peritonsillar abscess: was admittted and had aspiration done by ENT. Currently on Augmentin. To complete course. DVT prophylaxis * lovenox * CODE STATUS: Full code * Patient counseled extensively about different types of CODE STATUS including full code, DNR CCA and DNR CCA. Patient elects to be full code. * Total epdb-vq-amab time 17 minutes. Charges/Coding Visit Charges Inpatient E&M: 17917 Init Hosp L3 Procedures Hospitalists Procedures: 62297 Advncd Care Plan 30 Min
[2023-08-17 15:48] LABS: Absolute Lymphocyte Count 2.66 X10^3/uL (0.83-4.51); Basophil# 0.08 X10^3/uL; Basophil% 0.7 % (0-1); Eosinophil# 0.07 X10^3/uL; Eosinophils% 0.6 % (0-5); Hematocrit 41.4 % (40-54); Hemoglobin 13.6 g/dL (13.0-16.5); Lymphocyte # 2.66 X10^3/ul (0.83-4.51); Lymphocyte % 21.9 % (19-41); Mean Corp Hgb Conc 32.9 g/dL (32-36); Mean Corpuscular Hgb 31.3 pg (27.0-32.0); Mean Corpuscular Volume 95.2 fL (80-94); Mean Platelet Vol. 9.1 fl (6.2-12.0); Monocyte# 1.06 X10^3/uL; Monocyte% 8.7 % (0-10); NRBC Flagged by Analyzer 0 % (0-5); Neutrophil # 8.04 X10^3/uL (2.7-7.7); Neutrophil % 66.3 % (47-70); Platelet Count 415 K/mm3 (150-450); RBC Distribution Width CV 11.7 % (11.6-14.6); RBC Distribution Width SD 40.7 fl (35.1-43.9); Red Blood Count 4.35 M/mm3 (4.6-6.2); White Blood Count 12.1 K/mm3 (4.4-11.0)
[2023-08-17 16:02] LABS: International Normalized Ratio 1.1; Prothrombin Time (Protime)PT. 13.9 SECONDS (11.7-14.9)
[2023-08-17 16:03] LABS: Partial Thromboplast Time 23.6 Seconds (24.1-36.2)
[2023-08-17 16:06] LABS: Anion Gap 10 (5-15); BUN 30 mg/dL (7-18); BUN/Creat Ratio 16.6 RATIO (10-20); Calcium,Total 9.3 mg/dL (8.5-10.1); Chloride 105 mmol/L (98-107); Creatinine, Serum 1.81 mg/dL (0.70-1.30); EST Glomerular Filtration Rate 40 mL/min (>60); Est Glom Filt Rate - Afr Amer 49 mL/min (>60); Glucose 140 mg/dL (74-106); Potassium 4.4 mmol/L (3.5-5.1); Sodium Level 137 mmol/L (136-145); Troponin-I HS 100 pg/mL (3.0-78.0)
--- NOTE | 2023-08-17 16:52 | CL.I_ITS ---
Patient Name: ALLI JEFF Study Date: 08/17/2023 Performing: Sav Abrams MD Ht: 70 inches 177.8 cm : 1960 Wt: 195.11 lbs 88.5 kg Age: 63 Gender: male BSA: 2.07 PROCEDURE(S) PERFORMED IC16-([id number])AMI, BELKYS OR PTCA, ARTERY/GRAFT, SINGLE VESSEL DC01-([id number])LHC/COR/LV CLINICAL PROFILE AND CO-MORBIDITIES Indications: ACS <= 24 hrs Heart Failure: None CAD Presentations: STEMI. Symptom onset Date/Time: 08/17/2023 Time Not Available CONCLUSIONS 100% in-stent thrombosis Mid RPDA LVEF 60% Successful PTCA/BELYKS Mid RPDA using Ruthven [place] 2.75x34 mm, optimized proximally using 3.0 mm balloon RECOMMENDATIONS ASA Indefinitley Plavix for at least 12 months DESCRIPTION OF PROCEDURE The patient arrived to the procedure lab. The risks and benefits of the procedure as well as a full description of our services here and lack of surgical backup were fully explained to the patient and/or their significant other prior to the catheterization. The Timeout was completed, verifying the correct patient and procedure. The patient's procedural site was prepped and draped in the usual fashion. Local anesthetic was given subcutaneously to right radial region with Lidocaine 2%. Using a modified Seldinger technique, arterial access was obtained via the right radial artery, a 6Fr sheath was inserted.. Right Coronary Artery selective angiography was then performed in multiple views using a 6 Fr.. Left Coronary Artery selective angiography was performed in multiple views using a 5 Fr. 4.0 Advance catheter. Left Ventriculography was performed in COREAS projection using a 5 Fr. Pigtail catheter. LV to AO pullback pressures were then recordedThe images were reviewed and options discussed. A decision was then made to proceed with an Intervention, IVUS or other adjunct procedure. al.75 Guide catheter was inserted and engaged into the RCA. runthrough Guide wire was advanced to the Right PDA. Balloon catheter was advanced across lesion in the pda proximal PTCA balloon inflated at 16 atms for 12 secs. PTCA balloon inflated at 18 atms for 16 secs. Angiogram performed post balloon dilatation. PTCA balloon inflated at 18 atms for 10 secs. PTCA balloon inflated at 20 atms for 22 secs. 2.75 x 34 Ruthven Drug Eluting stent was advanced across the lesion in the posterior descending, proximal. 2.75 x 20 NC Emerge Balloon catheter was inserted post stent. 3.0 x 12 NC Emerge Balloon catheter was inserted post stent. Angiogram performed post balloon dilatation. Angiogram performed post balloon dilatation. Angiogram performed post balloon dilatation. The arterial sheath was pulled and a TR Band was applied for hemostasis 11cc air CORONARY ANGIOGRAPHY DOMINANCE: Right Dominant LEFT HEART ASSESSMENT Left Ventricular Ejection Fraction: by LV Gram 60 % LVEDP: 28 mmHg LEFT MAIN: Tubular 20% Ostial lesion in LMCA LEFT ANTERIOR DESCENDING ARTERY: LAD: Luminal Irregularities 30% Proximal lesion in LAD OM 1: Tubular 50% Proximal lesion in MARG1 OM 2: Tubular 50% Proximal lesion in MARG1 RAMUS: Luminal Irregularities 20% Proximal lesion in Ramus RIGHT CORONARY ARTERY: RCA: Tubular 30% Proximal lesion in RCA Eccentric 50% Distal lesion in RCA RT PDA: Thrombus 100% Mid lesion in RT PDA INTERVENTION INFORMATION LESION SITE: Rt PDA (Mid) Lesion Complexity: High/C, lesion length: 32 mm, culprit lesion: Yes, In-stent Thrombosis: Yes Pre Stenosis: 100 % Pre intervention WAI flow: 0 PROCEDURE: Drug Eluting Stent with pre and post dilatation Post Stenosis: 0 % Post intervention WAI flow: 3 Lesion Devices: Cordis 6 Fr AL.75 100cm Guide Catheter Terumo .014 180cm Runthrough Extra Floppy straight [employer] NC EMERGE MR 2.50x12 BALLOON Medtronic 2.75 x 34 IMMANUEL FRONTIER BELKYS Damon Sci NC EMERGE MR 2.75x20 BALLOON Damon [employer] NC EMERGE MR 3.00x12 BALLOON COMPLICATIONS No Complications PROCEDURE MEDICATIONS Versed 2 mg IV Fentanyl 50 mcg IV Versed 1 mg IV Oxygen: 2 L/min via nasal cannula Heparin 6000 unit(s) IV 08/17/2023 16:03:29 Heparin 3000 unit(s) IV 08/17/2023 16:43:25 Nitro 100 mcg IC 08/17/2023 16:07:26 SUMMARY OF HEMODYNAMIC DATA Time AIR REST ECG 15:54:15 AO 185/86 (126) SA 16:02:08 LV 166/11, 28 16:30:00 LV 172/13, 29 16:30:08 LVp 164/17, 31 16:31:09 AOp 165/74 (111) 16:31:16 16:48:39 Signed By Sav Abrams MD On 08/17/2023 16:52:09 Sav Abrams MD
--- NOTE | 2023-08-17 16:57 | CON.PCM.CA_ITS ---
Assessment & Plan Assessment/Plan (1) Acute ST elevation myocardial infarction (STEMI): PLAN: Emergent coronary angiography revealed in-stent thrombosis of the mid right posterior descending artery. Successful percutaneous revascularization was performed with balloon angioplasty and placement of 2.75 x 34 mm drug- eluting stent. Excellent results were noted with rastafarian of WAI-3 flow. Continue aspirin lifelong. Continue clopidogrel. (2) 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 disease: PLAN: See #1 above. Aspirin, clopidogrel, statins. (3) Dyslipidemia: PLAN: Atorvastatin. (4) Essential hypertension: PLAN: Amlodipine and telmisartan. HPI Consult Data Date of Consult: 08/17/23 HPI Narrative Reason for Consultation: STEMI HPI Narrative: This gentleman has past medical history significant for coronary artery disease status post drug-eluting stents to the mid RCA and mid right PDA in 2020. Also history of dyslipidemia and hypertension. Per patient, he recently stopped taking his aspirin and clopidogrel for his breast biopsy procedure and drainage of nava-tonsillar abscess. This afternoon he developed chest discomfort. EMS was called. An ECG was done in the field which showed acute inferior ST elevation myocardial infarction. Subsequently a STEMI alert was called. [facility] Medical History Abnormal stress test Angina pectoris Atherosclerotic heart disease of [place] coronary artery without angina pectoris Breast mass, right Essential hypertension History of left heart catheterization (LHC) (~12/29/21) HLD (hyperlipidemia) Myalgia Presence of stent in coronary artery (~11/15/20) Psoriasis Psoriatic arthritis Smoker SOB (shortness of breath) STEMI (ST elevation myocardial infarction) Tobacco abuse Home Medications aspirin 81 mg tablet,delayed release 81 mg PO DAILY #90 tabs 12/10/22 [Rx Last Taken Unknown] clopidogrel 75 mg tablet 75 mg PO DAILY #90 tabs 01/04/23 [Rx Last Taken Unknown] telmisartan 80 mg tablet 80 mg PO DAILY #90 tabs 01/04/23 [Rx Last Taken 08/13/23] amlodipine 5 mg tablet 5 mg PO DAILY #90 tabs 08/02/23 [Rx Last Taken 08/13/23] atorvastatin 10 mg tablet 10 mg PO QHS #90 tabs 08/02/23 [Rx Last Taken 08/13/23] clobetasol 0.05 % topical cream 1 applic topical DAILY PRN KNEE IRRITATION 08/14/23 [History Last Taken Unknown] amoxicillin 875 mg-potassium clavulanate 125 mg tablet 1 tab PO BID #24 tabs 08/15/23 [Rx Last Taken Unknown] Allergy/AdvReac Type Severity Reaction Status Date / Time isosorbide AdvReac Intermediate Dizzy, Verified 08/17/23 15:47 lightheaded, short of breath lisinopril AdvReac Intermediate dry Verified 08/17/23 15:47 persistent cough Family History Mother Thyroid disorder Surgical History History of coronary artery stent placement Presence of coronary angioplasty implant and graft (~11/15/20) Social History Smoking Status: Former smoker Tobacco: How many years used: 42 how long ago did patient quit smokin months alcohol intake: current details: occassional substance use type: does not use caffeine: Yes Type: coffee Number of servings: 1 Physical Exam Narrative Comfortable. No apparent distress. Heart sounds 1 and 2 noted. Chest examination reveals decreased air entry bilaterally. Alert oriented x 3. No ankle edema. Risk Stratification Risk Stratification Applicable: No Objective Data Vital Signs: Vital Signs Temp Pulse Resp BP Pulse Ox O2 Del Method 98.6 F 72 16 184/116 H 96 Room Air 08/17/23 15:45 08/17/23 15:45 08/17/23 15:45 08/17/23 15:45 08/17/23 15:59 08/17/23 15:59 Oxygen Delivery Method Room Air Weight: 195 lb 1.745 oz Body Mass Index (BMI) 28.0 Lab / Micro Data 08/17/23 15:33 08/17/23 15:33 Labs: Laboratory Results - last 24 hr 08/17/23 15:33: WBC 12.1 H, RBC 4.35 L, Hgb 13.6, Hct 41.4, MCV 95.2 H, MCH 31.3, MCHC 32.9, RDW Std Deviation 40.7, RDW Coeff of Lori 11.7, Plt Count 415, MPV 9.1, Immature Gran % (Auto) 1.800 H, Neut % (Auto) 66.3, Lymph % (Auto) 21.9, [place] % (Auto) 8.7, Eos % (Auto) 0.6, Baso % (Auto) 0.7, Absolute Neuts (auto) 8.0 H, Absolute Lymphs (auto) 2.66, Nucleated RBC % 0, PT 13.9, INR 1.1, APTT 23.6 L, Sodium 137, Potassium 4.4, Chloride 105, Carbon Dioxide 22.0, Anion Gap 10, BUN 30 H, Creatinine 1.81 H, Estim Creat Clear Calc 46.80, Est GFR (MDRD) Af Amer 49 L, Est GFR (MDRD) Non-Af 40 L, BUN/Creatinine Ratio 16.6, Glucose 140 H, Calcium 9.3, Troponin I High Sens 100 H Cardiology Labs/Tests 08/17/23 15:33: WBC 12.1 H, RBC 4.35 L, Hgb 13.6, Hct 41.4, MCV 95.2 H, MCH 31.3, MCHC 32.9, Plt Count 415, MPV 9.1, Immature Gran % (Auto) 1.800 H, Neut % (Auto) 66.3, Lymph % (Auto) 21.9, [place] % (Auto) 8.7, Eos % (Auto) 0.6, Baso % (Auto) 0.7, Absolute Neuts (auto) 8.0 H, Nucleated RBC % 0, PT 13.9, INR 1.1, APTT 23.6 L, Sodium 137, Potassium 4.4, Chloride 105, Carbon Dioxide 22.0, Anion Gap 10, BUN 30 H, Creatinine 1.81 H, Est GFR (MDRD) Af Amer 49 L, Est GFR (MDRD) Non-Af 40 L, BUN/Creatinine Ratio 16.6, Glucose 140 H, Calcium 9.3 Rhythm: EKG: ECG done in the emergency room showed changes consistent with acute inferior ST elevation myocardial infarction. ECHO: Stress Test: Cardiac Cath: PCI: CT Surgery: Holter monitor: EPS: PPM: CXR: Chest CT Scan:
--- NOTE | 2023-08-17 17:04 | ECHOD_ITS ---
Reason For Study: CHEST PAIN Procedure This was a 2D Doppler, Color Flow transthoracic echocardiogram. Exam performed portable in ICU/CCU. Left Ventricle Normal LV size. Mild concentric left ventricular hypertrophy. The left ventricular ejection fraction is 65 %. Normal diastology for age. Right Ventricle Normal right ventricle. Atria The left and right atria are normal. Bubble contrast study is negative for PFO/ASD. Mitral Valve The mitral valve chordae are thickened and/or calcified. Trivial mitral valve insufficiency. Tricuspid Valve Mild tricuspid valve insufficiency. Right ventricular systolic pressure estimated to be 36 mmHg. Aortic Valve Trisinus/trileaflet aortic valve. Aortic sclerosis, no stenosis. Pulmonic Valve The pulmonic valve is not well visualized. Great Vessels Mildly dilated aortic root. Pericardium/Pleural No pericardial effusion. Medication Performed a rapid injection of agitated mix of 9 cc saline and 1cc air to assess for atrial septal defect. MMode/2D Measurements & Calculations LVIDd: 4.9 cm IVSd: 1.1 cm Ao root diam: 3.5 cm LVIDs: 3.3 cm LVPWd: 1.1 cm RVDd: 3.9 cm FS: 31.5 % LAV(MOD-bp): 86.1 ml LVAd ap4: 28.7 cm2 SV(MOD-sp4): 48.7 ml LAV(MOD-bp) Indexed: 41.7 ml/m2 LVLd ap4: 8.1 cm LAV(MOD-sp2): 89.6 ml EDV(MOD-sp4): 82.3 ml LAV(MOD-sp4): 72.0 ml EDV(sp4-el): 85.8 ml LVAs ap4: 16.0 cm2 LVLs ap4: 7.0 cm ESV(MOD-sp4): 33.6 ml ESV(sp4-el): 31.2 ml EF(MOD-sp4): 59.1 % EF(sp4-el): 63.7 % SV(sp4-el): 54.6 ml LA A4 area: 21.7 cm2 LA dimension(2D): 3.9 cm RA A4 area: 14.2 cm2 TAPSE: 2.1 cm Time Measurements MV dec time: 0.23 sec Doppler Measurements & Calculations MV E max ish: 73.2 cm/sec Lat Peak E' Ish: 9.9 cm/sec Med Peak E' Ish: 8.0 cm/sec MV A max ish: 93.7 cm/sec E/E' lat: 7.4 E/E' med: 9.1 MV E/A: 0.78 MV V2 max: 94.4 cm/sec MV P1/2t max ish: 86.7 cm/sec PA V2 max: 112.1 cm/sec MV max P.6 mmHg MV P1/2t: 68.2 msec PA V2 mean: 77.6 cm/sec MV V2 mean: 52.0 cm/sec MV dec slope: 372.7 cm/sec2 MV mean P.3 mmHg MVA(P1/2t): 3.2 cm2 MV V2 VTI: 32.0 cm TR max ish: 276.9 cm/sec TR max P.7 mmHg ECHO/Echo Complete Interpretation Summary Mild concentric left ventricular hypertrophy. The left ventricular ejection fraction is 65 %. Mild inferior hypokinesis. Mild tricuspid valve insufficiency. Right ventricular systolic pressure estimated to be 36 mmHg. Mildly dilated aortic root. Ordering Physician: Sav Abrams Referring Physician: Jer Jacobo Performed By: Yolanda Myles RVT, RDCS and Student
--- NOTE | 2023-08-17 17:25 | CRPHASE1 ---
Patient Communication Patient Information Former Patient:: Phase II PHII Cardiac Rehab Discussed with Patient:: Yes Guide to Cardiac Rehab Given to Patient:: Yes Cardiac Rehab Facility Choice List Given to Patient:: Yes Communication to Cardiac Rehab Choice Program [facility] CR PHII:: Communication Given to CR Director Of First Impressions:: Sav Abrams Phase II Cardiac Rehab:: Yes Sessions:: 36 sessions - 3 days/wk, 12 weeks Cardiac Rehabilitation Info Program Information Cardiac Rehabilitation Program Information: Cardiac Rehab The cardiac rehab team at [facility] consists of highly skilled exercise physiologists, nurses, respiratory therapists and physicians working together with you. Our purpose is to help you have a full recovery and achieve the goals you set for yourself. Over the years many of our patients have returned to activities they assumed they would never do again! We can help restore your confidence and motivation to make lifestyle changes that can have a significant impact on your health and quality of life! We can help answer questions and concerns you may have about exercise, lifestyle, medications, diet, stress and anxiety which are common following a hospitalization. WE monitor ECG and vital signs during exercise and discuss your progress with you and report to your physician(s). Cardiac Rehab is proven to help reduce readmissions, improve functional capacity and lower recurrence of problems with your heart. Our Cardiac Rehab program is Certified by the [place] [employer]-Vascular and Pulmonary [employer] (AACVPR) and Accredited by the [place] [employer] through our [facility]. You can contact us at . We invite you to call us with your questions or to get started in our program. If you have other questions or concerns be sure to ask your physician/provider during your follow-up visit. WE look forward to seeing you!
--- NOTE | 2023-08-17 17:25 | CRPH1.INSTRU ---
General Education Discussed with Patient CAD and cardiac anatomy and function:: Needs reinforcement Explanation of diagnoses and procedures:: Needs reinforcement Sign/Symptoms of [place]:: Needs reinforcement Antiplatelet therapy: Needs reinforcement Proper use of NTG-SL: Needs reinforcement Emergency procedures and activation of EMS: Needs reinforcement Compliance of all prescribed medications: Needs reinforcement Smoking Risk Factors Patient Nicotine/Smoking Risk Factors Are:: Cigarettes Recommendations Recommendations Include:: Smoking cessation strategies/Smoking packet Response Code Nicotine/Smoking Response Code:: Needs reinforcement Dyslipidemia Risk Factors Patient Dyslipidemia Risk Factors Are:: Total Cholesterol, Triglycerides, HDL and LDL Recommendations Recommendations Include:: Lipid profile not available Response Code Dyslipidemia Response Code:: Patient communicates acknowledgment Overweight/Obesity Risk Factors Patient Overweight/Obesity Risk Factors Are:: Overweight = 26-29 Recommendations Recommendations Include:: Weight loss of 5-10%, Reduced calorie diet and Exercise 5-7 times/week Response Code Overweight/Obesity:: Patient communicates acknowledgment Hypertension Recommendations Recommendations Include:: Maintain BP <130/85, Decrease/maintain normal body weight and Moderation of ETOH Response Code Hypertension:: Patient communicates acknowledgment and Needs reinforcement Heart Disease Risk Factors Patient Heart Disease Risk Factors Are:: Previous cardiac event Recommendations Recommendations Include:: Educated family members of their risk Response Code Heart Disease Response Code:: Family communicates acknowledgment and Needs reinforcement Sedentary Risk Factors Patient Sedentary Risk Factors Are:: Lack of regular exercise Recommendations Recommendations Include:: Aerobic exercise 5-7 times/week for 20-30 minutes continuously, Benefits of regular exercise, Discussed home walking program and Monitored Outpatient Cardiac Rehab Response Code Sedentary Response Code:: Needs reinforcement
[2023-08-17] MEDS: 0.9% Normal Saline (1000mL) 1,000 ML 150 ML IV (17:26)
[2023-08-17] MEDS: Amox/Clavulanate 875 MG Tablet PO (20:06)
[2023-08-17] MEDS: Atorvastatin Calcium 10 MG Tablet PO (20:06)
[2023-08-17] MEDS: Clopidogrel Bisulfate 300 MG Tablet PO (20:06)
[2023-08-18] VITALS (15 sets, daily range): BP systolic 113–150; BP diastolic 57–74; PULSE 50–63; RESP 10–18; TEMP 36.4–36.9; O2SAT 91–99; BMI 28.0
[2023-08-18 04:18] LABS: Hematocrit 36.1 % (40-54); Hemoglobin 11.9 g/dL (13.0-16.5); Mean Corpuscular Hgb 31.6 pg (27.0-32.0); Mean Platelet Vol. 9.1 fl (6.2-12.0); Platelet Count 313 K/mm3 (150-450); RBC Distribution Width CV 11.9 % (11.6-14.6); RBC Distribution Width SD 41.7 fl (35.1-43.9); Red Blood Count 3.76 M/mm3 (4.6-6.2); White Blood Count 9.8 K/mm3 (4.4-11.0)
[2023-08-18 04:34] LABS: ALB/GLOB Ratio 1.1 RATIO (0.9-2.4); AST(SGOT) 132 U/L (15-37); Alanine Aminotransfer ALT/SGPT 42 U/L (16-61); Albumin, Serum 3.1 g/dL (3.2-5.0); Alkaline Phosphatase 55 U/L (45-117); Anion Gap 6 (5-15); BUN 21 mg/dL (7-18); BUN/Creat Ratio 20.4 RATIO (10-20); Calcium,Total 8.3 mg/dL (8.5-10.1); Chloride 108 mmol/L (98-107); Cholesterol 82 mg/dL (200); Creatinine, Serum 1.03 mg/dL (0.70-1.30); EST Glomerular Filtration Rate 77 mL/min (>60); Est Glom Filt Rate - Afr Amer 94 mL/min (>60); Globulin 2.9 g/dL (2.2-4.2); Glucose 99 mg/dL (74-106); High Density Lipoprotein 27 mg/dL; Potassium 3.6 mmol/L (3.5-5.1); Sodium Level 139 mmol/L (136-145); Triglycerides 227 mg/dL; Very Low Density Lipoprotein 45 mg/dL (5-40)
[2023-08-18] MEDS: Acetaminophen 325 MG Tablet 650 MG PO ×2 (05:31→17:58)
[2023-08-18] MEDS: 0.9% Saline Lock 10 ML Syringe IV (05:39)
--- NOTE | 2023-08-18 07:10 | PCM.PN.HOSP ---
Reason for Visit Reason for Visit: Chest pain Subjective Subjective Mr. Kerr is a 63-year-old white male who presented to the emergency department at [facility] on 08/17/2023 with chest pain that started about an hour prior to presentation. He was out doing some yard work and started having symptoms. He reported his chest pain was pressure-like and radiated to his left shoulder and jaw and it was associated with some mild diaphoresis. He denied any nausea or vomiting and he denied shortness of breath. Patient had previously been on Plavix but had not taken his Plavix in about 5 days as he was scheduled to have a breast biopsy. His last stent was placed in 2020. He had a recent admission here at which time he was found to have a peritonsillar abscess for which an aspiration was done by ENT and he clinically improved and was discharged on oral antibiotics. Vital signs on presentation showed a temperature of 98.6, heart rate 72, respiratory 16, blood pressure was 184/116, pulse ox was 96% on room air. CBC showed a mild leukocytosis with a white count of 12.1 but was otherwise unremarkable. Coags were unremarkable. Chemistry panel showed JOHNNA with a serum creatinine of 1.81 and a BUN of 30 with a baseline serum creatinine of 0.8-1.0. His glucose on presentation was 140. Initial troponin was 100. On admission actual cholesterol panel was obtained and his total cholesterol was 82 with an LDL of 10 and HDL of 27 and a triglyceride level of 227. He was taken emergently to the [facility] and this revealed in-stent thrombosis in the mid right posterior descending artery for which successful percutaneous revascularization was performed with balloon angioplasty and placement of 1 drug-eluting stent with results showing WAI-3 flow. Patient states he is feeling well right now. Has no complaints. Did have some nasal bleeding overnight. He was hit in the face with a log while he was out working prior to coming in. He blew his nose with a large bloody clot and then some head pain that he was having resolved. He had no further issues since that point in time. Was anxious to go home today however I did discuss with him the reason behind him staying another 24 hours and he voiced understanding. Objective Data Objective Data Vital Signs: Vital Signs Temp Pulse Resp BP Pulse Ox O2 Del Method 97.6 F L 52 L 13 150/58 H 91 Room Air 08/18/23 05:00 08/18/23 07:00 08/18/23 07:00 08/18/23 07:00 08/18/23 07:00 08/18/23 07:00 Oxygen Delivery Method Room Air Weight: 88.9 kg Body Mass Index (BMI) 28.0 Intake & Output: Intake and Output for Last 24 Hours 08/16/23 08/17/23 08/18/23 23:59 23:59 23:59 Intake Total 1000 / 1000 Balance 1000 / 1000 Lab / Micro Data 08/18/23 04:10 08/18/23 04:10 Labs: Laboratory Results - last 24 hr 08/17/23 15:33: WBC 12.1 H, RBC 4.35 L, Hgb 13.6, Hct 41.4, MCV 95.2 H, MCH 31.3, MCHC 32.9, RDW Std Deviation 40.7, RDW Coeff of Lori 11.7, Plt Count 415, MPV 9.1, Immature Gran % (Auto) 1.800 H, Neut % (Auto) 66.3, Lymph % (Auto) 21.9, [place] % (Auto) 8.7, Eos % (Auto) 0.6, Baso % (Auto) 0.7, Absolute Neuts (auto) 8.0 H, Absolute Lymphs (auto) 2.66, Nucleated RBC % 0, PT 13.9, INR 1.1, APTT 23.6 L, Sodium 137, Potassium 4.4, Chloride 105, Carbon Dioxide 22.0, Anion Gap 10, BUN 30 H, Creatinine 1.81 H, Estim Creat Clear Calc 46.80, Est GFR (MDRD) Af Amer 49 L, Est GFR (MDRD) Non-Af 40 L, BUN/Creatinine Ratio 16.6, Glucose 140 H, Calcium 9.3, Troponin I High Sens 100 H 08/18/23 04:10: WBC 9.8, RBC 3.76 L, Hgb 11.9 L, Hct 36.1 L, MCV 96.0 H, MCH 31.6, MCHC 33.0, RDW Std Deviation 41.7, RDW Coeff of Lori 11.9, Plt Count 313, MPV 9.1, Sodium 139, Potassium 3.6, Chloride 108 H, Carbon Dioxide 25.0, Anion Gap 6, BUN 21 H, Creatinine 1.03, Estim Creat Clear Calc 82.40, Est GFR (MDRD) Af Amer 94, Est GFR (MDRD) Non-Af 77, BUN/Creatinine Ratio 20.4 H, Glucose 99, Calcium 8.3 L, Total Bilirubin 0.50, AST 132 H, ALT 42, Alkaline Phosphatase 55, Total Protein 6.0 L, Albumin 3.1 L, Globulin 2.9, Albumin/Globulin Ratio 1.1, Triglycerides 227 H, Cholesterol 82, LDL Cholesterol 10, VLDL Cholesterol 45 H, HDL Cholesterol 27 L Physical Exam Const alert, oriented x3, no apparent distress and well nourished Constitutional Narrative: Overweight, upper middle-aged, white male, lying in bed, appears comfortable and nontoxic HEENT head/scalp atraumatic and moist oral mucous membranes HEENT Narrative: Few scratches on nose and forehead Resp normal respiratory effort, no retractions, no use of accessory muscles and clear to auscultation bilaterally Auscultation: Negative for rales, rhonchi or wheezes Cardio regular rate, regular rhythm, S1 normal heart sound, S2 normal heart sound, no murmurs, no rub, no gallops and no clicks GI normal to inspection, nondistended, normoactive bowel sounds, soft to palpation and non-tender Extremity no clubbing, cyanosis or edema Extremity Narrative: Pedal pulses are 2+ Neuro oriented x3, moves all extremities and no focal motor deficits Sensorium / Orientation: awake, alert, oriented to person, oriented to place and oriented to time Speech: speech normal Psych affect normal Psych Narrative: Extremely pleasant, eye contact is good, patient interacts appropriately Assessment & Plan Assessment/Plan (1) Acute ST elevation myocardial infarction (STEMI): (2) Abscess, peritonsillar: (3) Breast mass, right: PLAN: Plan Acute inferior STEMI -In-stent thrombosis found from 2020 cardiac catheterization with BELKYS to mid RPDA placed in [facility] on admission -Previous stent was placed in 2020 -Plavix and aspirin had been on hold due to intervention with breast biopsy and recent abscess drainage for peritonsillar abscess -Echocardiogram is pending -continue aspirin -Continue Plavix -Continue Cozaar -Continue home atorvastatin--> LDL is 10 -Check hemoglobin A1c--> patient had been on recent steroids for his peritonsillar abscess -Cardiology following-appreciate input Recent right peritonsillar abscess -Continue Augmentin--> stop date is 08/27/2023 -Follow-up with Dr. Mujica as previously recommended Right breast mass -Biopsy performed on 08/16/2023 -Ultrasound was performed and gave a BI-RADS 4 in the retroareolar area -Pathology remains pending CAD -Previous PCI with last stent placed in 2020 -Plavix and aspirin had been on hold for breast biopsy and status post drainage of peritonsillar abscess -Treatment as above Hypertension -Patient is on amlodipine and telmisartan at baseline -Continue amlodipine -Continue ARB -as needed hydralazine HPL -Lipids are well-controlled on current regimen -Continue home statin -LDL is 10 Suspected COPD -Patient was CAT scan that showed emphysematous changes -No current issues DVT prophylaxis -Continue Lovenox CODE STATUS -Full code Charges/Coding Visit Charges Inpatient E&M: 57897 Subs Hosp L2
[2023-08-18] MEDS: Clopidogrel Bisulfate 75 MG Tablet PO (07:43)
[2023-08-18] MEDS: Losartan Potassium 100 MG Tablet PO (07:43)
[2023-08-18] MEDS: amLODIPine 5 MG Tablet PO (07:43)
[2023-08-18] MEDS: Amox/Clavulanate 875 MG Tablet PO ×2 (07:43→18:55)
[2023-08-18] MEDS: Aspirin E.C. 81 MG Tablet PO (07:43)
--- NOTE | 2023-08-18 10:17 | PN.CARD_ITS ---
Subjective Subjective Denies any complaints. No chest pains or shortness of breath. Objective Data Vital Signs: Vital Signs Temp Pulse Resp BP Pulse Ox O2 Del Method 97.8 F 55 L 15 117/61 99 Room Air 08/18/23 08:00 08/18/23 10:00 08/18/23 10:00 08/18/23 10:00 08/18/23 10:00 08/18/23 10:00 Oxygen Delivery Method Room Air Weight: 195 lb 15.855 oz Body Mass Index (BMI) 28.0 Intake & Output: Intake and Output for Last 24 Hours 08/16/23 08/17/23 08/18/23 23:59 23:59 23:59 Intake Total 1000 / 1000 Balance 1000 / 1000 Lab / Micro Data 08/18/23 04:10 08/18/23 04:10 Labs: Laboratory Results - last 24 hr 08/17/23 15:33: WBC 12.1 H, RBC 4.35 L, Hgb 13.6, Hct 41.4, MCV 95.2 H, MCH 31.3, MCHC 32.9, RDW Std Deviation 40.7, RDW Coeff of Lori 11.7, Plt Count 415, MPV 9.1, Immature Gran % (Auto) 1.800 H, Neut % (Auto) 66.3, Lymph % (Auto) 21.9, [place] % (Auto) 8.7, Eos % (Auto) 0.6, Baso % (Auto) 0.7, Absolute Neuts (auto) 8.0 H, Absolute Lymphs (auto) 2.66, Nucleated RBC % 0, PT 13.9, INR 1.1, APTT 23.6 L, Sodium 137, Potassium 4.4, Chloride 105, Carbon Dioxide 22.0, Anion Gap 10, BUN 30 H, Creatinine 1.81 H, Estim Creat Clear Calc 46.80, Est GFR (MDRD) Af Amer 49 L, Est GFR (MDRD) Non-Af 40 L, BUN/Creatinine Ratio 16.6, Glucose 140 H, Calcium 9.3, Troponin I High Sens 100 H 08/18/23 04:10: WBC 9.8, RBC 3.76 L, Hgb 11.9 L, Hct 36.1 L, MCV 96.0 H, MCH 31.6, MCHC 33.0, RDW Std Deviation 41.7, RDW Coeff of Lori 11.9, Plt Count 313, MPV 9.1, Sodium 139, Potassium 3.6, Chloride 108 H, Carbon Dioxide 25.0, Anion Gap 6, BUN 21 H, Creatinine 1.03, Estim Creat Clear Calc 82.40, Est GFR (MDRD) Af Amer 94, Est GFR (MDRD) Non-Af 77, BUN/Creatinine Ratio 20.4 H, Glucose 99, Calcium 8.3 L, Total Bilirubin 0.50, AST 132 H, ALT 42, Alkaline Phosphatase 55, Total Protein 6.0 L, Albumin 3.1 L, Globulin 2.9, Albumin/Globulin Ratio 1.1, Triglycerides 227 H, Cholesterol 82, LDL Cholesterol 10, VLDL Cholesterol 45 H, HDL Cholesterol 27 L Cardiology Labs/Tests 08/17/23 15:33: WBC 12.1 H, RBC 4.35 L, Hgb 13.6, Hct 41.4, MCV 95.2 H, MCH 31.3, MCHC 32.9, Plt Count 415, MPV 9.1, Immature Gran % (Auto) 1.800 H, Neut % (Auto) 66.3, Lymph % (Auto) 21.9, [place] % (Auto) 8.7, Eos % (Auto) 0.6, Baso % (Auto) 0.7, Absolute Neuts (auto) 8.0 H, Nucleated RBC % 0, PT 13.9, INR 1.1, APTT 23.6 L, Sodium 137, Potassium 4.4, Chloride 105, Carbon Dioxide 22.0, Anion Gap 10, BUN 30 H, Creatinine 1.81 H, Est GFR (MDRD) Af Amer 49 L, Est GFR (MDRD) Non-Af 40 L, BUN/Creatinine Ratio 16.6, Glucose 140 H, Calcium 9.3 08/18/23 04:10: WBC 9.8, RBC 3.76 L, Hgb 11.9 L, Hct 36.1 L, MCV 96.0 H, MCH 31.6, MCHC 33.0, Plt Count 313, MPV 9.1, Sodium 139, Potassium 3.6, Chloride 108 H, Carbon Dioxide 25.0, Anion Gap 6, BUN 21 H, Creatinine 1.03, Est GFR (MDRD) Af Amer 94, Est GFR (MDRD) Non-Af 77, BUN/Creatinine Ratio 20.4 H, Glucose 99, Calcium 8.3 L, Total Bilirubin 0.50, Triglycerides 227 H, Cholesterol 82, LDL Cholesterol 10, VLDL Cholesterol 45 H, HDL Cholesterol 27 L Rhythm: EKG: ECHO: Stress Test: Cardiac Cath: PCI: CT Surgery: Holter monitor: EPS: PPM: CXR: Chest CT Scan: Physical Exam Narrative Comfortable. No apparent distress. Heart sounds 1 and 2 noted. Chest examination reveals decreased air entry bilaterally. Alert oriented x 3. No ankle edema. Assessment & Plan Assessment/Plan (1) Acute ST elevation myocardial infarction (STEMI): PLAN: Emergent coronary angiography revealed in-stent thrombosis of the mid right posterior descending artery. Successful percutaneous revascularization wa s performed with balloon angioplasty and placement of 2.75 x 34 mm drug-eluting stent. Excellent results were noted with latter-day of WAI-3 flow. Continue aspirin lifelong. Continue clopidogrel. (2) 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 disease: PLAN: See #1 above. Aspirin, clopidogrel, statins. (3) Dyslipidemia: PLAN: Atorvastatin. (4) Essential hypertension: PLAN: Amlodipine and telmisartan. PLAN: Plan Home tomorrow if continues to be hemodynamically stable.
--- NOTE | 2023-08-18 11:27 | CASEMGMT ---
Readmission Note:? ? Index: 08/13-08/15/23. Dx: Acute Tonsillar Abscess ? ? Readmission: 08/17/23. Dx: Acute STEMI ? ? Pt with a history of HTN, HLD, Myalgia, SOB, and Tobacco abuse was admitted on the above-noted dates for the corresponding dx?s. The pt current stay appears unrelated to the initial visit. Pt returned to [facility] ER with CP that started about an hour CR[place]. The pt EKG displayed STEMI and therefore the pt was taken for an emergent cardiac catheterization. ? ? RN CM to pt room at this time. Pt is A&Ox4 and is resting comfortably in bed and is calm. Pt states that he followed all of the recommendations given on the DC instructions from the previous visit. Pt states that he was able to get his ATB and take it as ordered. Pt also held medications that he was advised to not take. Pt has f/u appt scheudeld for future dates. Pt states that he was eating a soft diet as recommended. Pt states that he also feels as if this current stay is unrelated to the previous one. ? ? The pt plan moving forward will be to DC potentially tomorrow and f/u with the Cardiac Rehab program. Pt states that he has been through this before and will call and make his appt. Pt states that he is independent and has no homegoing concerns at this time. Pt denies the need for HHC or OP PT/OT now. CM to follow for safe DC from [facility]. ?
[2023-08-18 12:27] LABS: Hemoglobin A1c 5.7 % (3.8-5.6)
--- NOTE | 2023-08-18 14:56 | CHAPLAIN ---
Type of Pastoral Visit _x__ Initial Visit ___ Follow-up Visit ___ On-call Visit ___ General Patient Visit ___ Spiritual Assessment ___ Family Conference ___ Bereavement ___ Rapid Response ___ Code Blue ___ Other (describe below) Pastoral Care Referral From _x__ Patient ___ Family ___ Nurse ___ Physician ___ Associate Data Scientist ___ Musical String Maker ___ Other (describe below) Sacrament/Intervention _x__ Active listening ___ Anointing ___ Sikh ___ Bereavement ___ Communion ___ Jessi exploration ___ _x__ Life review ___ Prayer ___ Reconciliation ___ Sacrament of Sick _x__ Supportive presence ___ Wedding ___ Other (describe below) Pastoral Comments patient and spouse are together and both recount the events of last several days of emergency room visits and admission to hospital; pt declares that he is doing better and is hopeful for a more normal time to return; time to listen and speak words of encouragement given
[2023-08-18 15:36] LABS: ACT Activated Clotting Time 189 sec (74-137)
[2023-08-18 15:36] LABS: ACT Activated Clotting Time 250 sec (74-137)
[2023-08-18] MEDS: Atorvastatin Calcium 10 MG Tablet PO (21:00)
[2023-08-19 03:25] VITALS: BP 102/56; PULSE 53; RESP 14; TEMP 36.4; O2SAT 97
[2023-08-19 04:35] VITALS: BMI 28.0
[2023-08-19 06:11] LABS: Hematocrit 40.2 % (40-54); Mean Corp Hgb Conc 32.3 g/dL (32-36); Mean Corpuscular Hgb 31.7 pg (27.0-32.0); Mean Platelet Vol. 9.1 fl (6.2-12.0); Platelet Count 324 K/mm3 (150-450); RBC Distribution Width CV 11.9 % (11.6-14.6); White Blood Count 10.2 K/mm3 (4.4-11.0)
[2023-08-19 06:49] LABS: Anion Gap 4 (5-15); BUN 16 mg/dL (7-18); Calcium,Total 8.6 mg/dL (8.5-10.1); Chloride 107 mmol/L (98-107); EST Glomerular Filtration Rate 80 mL/min (>60); Est Glom Filt Rate - Afr Amer 97 mL/min (>60); Estimated Creatinine Clearance 84.74 ml/min; Glucose 106 mg/dL (74-106); Potassium 4.2 mmol/L (3.5-5.1); Sodium Level 138 mmol/L (136-145)
[2023-08-19 08:28] VITALS: O2SAT 97
[2023-08-19 08:40] VITALS: BP 139/73; PULSE 55; RESP 14; TEMP 36.2; O2SAT 100
[2023-08-19] MEDS: Aspirin E.C. 81 MG Tablet PO (08:49)
[2023-08-19] MEDS: 0.9% Saline Lock 10 ML Syringe IV (08:49)
[2023-08-19] MEDS: Amox/Clavulanate 875 MG Tablet PO (08:49)
[2023-08-19] MEDS: amLODIPine 5 MG Tablet PO (08:49)
[2023-08-19] MEDS: Clopidogrel Bisulfate 75 MG Tablet PO (08:49)
[2023-08-19] MEDS: Losartan Potassium 100 MG Tablet PO (08:49)
--- NOTE | 2023-08-19 11:20 | PCM.DC.SUM ---
Providers Date of Admission: 08/17/23 Date of Discharge: 08/19/23 Primary Care Physician: Dr. Jer Jacobo MD Reason For Visit: ACUTE STEMI Diagnosis Discharge Diagnosis (1) Acute ST elevation myocardial infarction (STEMI): Status: Acute Code(s): I21.3 - ST elevation (STEMI) myocardial infarction of unspecified site (2) 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 disease: Status: Chronic Code(s): I25.10 - Atherosclerotic heart disease of [place] coronary artery without angina pectoris (3) Dyslipidemia: Status: Chronic Code(s): E78.5 - Hyperlipidemia, unspecified (4) Essential hypertension: Status: Chronic Code(s): I10 - Essential (primary) hypertension Medications at Discharge Home Medications aspirin 81 mg tablet,delayed release 81 mg PO DAILY #90 tabs 12/10/22 clopidogrel 75 mg tablet 75 mg PO DAILY #90 tabs 01/04/23 telmisartan 80 mg tablet 80 mg PO DAILY #90 tabs 01/04/23 amlodipine 5 mg tablet 5 mg PO DAILY #90 tabs 08/02/23 atorvastatin 10 mg tablet 10 mg PO QHS #90 tabs 08/02/23 clobetasol 0.05 % topical cream 1 applic topical DAILY PRN KNEE IRRITATION 08/14/23 amoxicillin 875 mg-potassium clavulanate 125 mg tablet 1 tab PO BID #24 tabs 08/15/23 Hospital Course Procedures 2-D Echocardiogram, Cardiac catheterization and EKG Summary of Care Provided Minutes Spent on Discharge: 38 Hospital Course: Mr. Kerr is a 63-year-old white male who presented to the emergency department at [facility] on 08/17/2023 with chest pain that started about an hour prior to presentation. He was out doing some yard work and started having symptoms. He reported his chest pain was pressure-like and radiated to his left shoulder and jaw and it was associated with some mild diaphoresis. He denied any nausea or vomiting and he denied shortness of breath. Patient had previously been on Plavix but had not taken his Plavix in about 5 days as he was scheduled to have a breast biopsy. His last stent was placed in 2020. He had a recent admission here at which time he was found to have a peritonsillar abscess for which an aspiration was done by ENT and he clinically improved and was discharged on oral antibiotics. Vital signs on presentation showed a temperature of 98.6, heart rate 72, respiratory 16, blood pressure was 184/116, pulse ox was 96% on room air. CBC showed a mild leukocytosis with a white count of 12.1 but was otherwise unremarkable. Coags were unremarkable. Chemistry panel showed JOHNNA with a serum creatinine of 1.81 and a BUN of 30 with a baseline serum creatinine of 0.8-1.0. His glucose on presentation was 140. Initial troponin was 100. On admission actual cholesterol panel was obtained and his total cholesterol was 82 with an LDL of 10 and HDL of 27 and a triglyceride level of 227. He was taken emergently to the [facility] and this revealed in-stent thrombosis in the mid right posterior descending artery for which successful percutaneous revascularization was performed with balloon angioplasty and placement of 1 drug-eluting stent with results showing WAI-3 flow. We obtained an echocardiogram which was done on 08/18/2023 and showed an EF of 65% with mild inferior hypokinesis, mild concentric LVH, mild tricuspid valve insufficiency and a right ventricular systolic pressure at 36 mmHg. His aortic root was mildly dilated. He was monitored for 24 hours after cardiac catheterization and he had no significant signs of reperfusion arrhythmias. He was felt stable for discharge and was feeling well on 08/19/2023. No new medications were initiated however we did restart his aspirin and Plavix and he will need these continuously for the next 12 months. We have scheduled a follow-up in the outpatient setting for cardiology and I have advised him to follow-up with his primary care physician within the next 2 to 4 weeks for hospital follow-up. Discharge diagnoses: Acute inferior STEMI Recent right peritonsillar abscess-resolving Right breast mass-biopsy pending CAD Hypertension Hyperlipidemia Suspected COPD Physical Exam Const alert, oriented x3, no apparent distress, no limitations, healthy appearing and well nourished Constitutional Narrative: Overweight, upper middle-aged, white male, sitting up in a chair at the bedside, appears comfortable and nontoxic General Appearance: cooperative, comfortable, well kempt and well developed Orientation / Consciousness: awake, oriented to person, oriented to place and oriented to time Exam Limitations: no limitations HEENT normocephalic, head/scalp atraumatic, moist oral mucous membranes and oropharynx normal HEENT Narrative: Mild hearing loss, Mallampati is 2, no thrush Eyes PERRL, EOMs intact bilaterally and conjunctivae normal Eyes Narrative: No scleral icterus Neck no lymphadenopathy and supple Neck Narrative: Trachea midline, no thyroid enlargement Resp normal respiratory effort, normal air movement, no retractions, no use of accessory muscles and clear to auscultation bilaterally Auscultation: Negative for rales, rhonchi or wheezes Cardio regular rate, regular rhythm, S1 normal heart sound, S2 normal heart sound, no murmurs, no rub, no gallops and no clicks GI normal to inspection, nondistended, normoactive bowel sounds, soft to palpation and non-tender Extremity normal capillary refill, no clubbing, cyanosis or edema and no calf tenderness Extremity Narrative: Pedal pulses are 2+ Neuro oriented x3, CN's II-XII intact bilaterally, moves all extremities and no focal motor deficits Sensorium / Orientation: awake, alert, oriented to person, oriented to place and oriented to time Speech: speech normal Psych thought process normal, cooperative and affect normal Psych Narrative: Extremely pleasant, eye contact is good, patient interacts appropriately Weight / BMI Weight Weight: 88.6 kg Body Mass Index (BMI) 28.0 ABG / Lab / Microbiology Data 08/19/23 05:00 08/19/23 05:00 Laboratory: Laboratory Results - last 24 hr 08/17/23 16:00: Activated Clotting Time 189 H 08/17/23 16:34: Activated Clotting Time 250 H 08/18/23 04:10: Hemoglobin A1c 5.7 H 08/19/23 05:00: WBC 10.2, RBC 4.10 L, Hgb 13.0, Hct 40.2, MCV 98.0 H, MCH 31.7, MCHC 32.3, RDW Std Deviation 43.0, RDW Coeff of Lori 11.9, Plt Count 324, MPV 9.1, Sodium 138, Potassium 4.2, Chloride 107, Carbon Dioxide 27.0, Anion Gap 4 L, BUN 16, Creatinine 1.00, Estim Creat Clear Calc 84.74, Est GFR (MDRD) Af Amer 97, Est GFR (MDRD) Non-Af 80, BUN/Creatinine Ratio 16.0, Glucose 106, Calcium 8.6 D/C Instructions Discharge Diet: Low fat / Low cholesterol Discharge Activity: Return to Normal Activity (Do not lift greater than 10 pounds with your right hand for the next 3 to 5 days or do repetitive movements with that hand) Return to work on: 08/23/23 Meaningful Use Info Meaningful Use Meaningful Use Diagnoses (Choose all that apply): None applicable and AMI AMI/Post PCI/Angioplasty Aspirin given w/in 24hrs of arrival?: Yes ASA at discharge?: Yes Antiplatelet Therapy at Discharge:: Yes Statins at discharge?: Yes Tian/ARB at discharge?: Yes Beta Bambi at discharge?: No Reason Beta Bambi not ordered:: Drug Interaction Done w/ Acute [place] measure.: Yes Documented LVEF (%): 65 Ischemic Stroke Statin Dosing Therapy Reference: STATIN DOSE THERAPY REFERENCE: * Patients > 75 years receive moderate or high dose statin therapy. * Patients 75 years or YOUNGER should receive HIGH intensity statin dose unless contraindicated. You will be required to document reason for non-treatment if statin daily dose does not meet guidelines. HIGH DOSE STATIN THERAPY DAILY Atorvastatin > than or = to 40 mg Rosuvastatin > than or = to 20 mg Amlodipine + Atorvastatin > than or = to 2.5/40 mg Ezetimibe + Simvastatin 10/80 mg Simvastatin 80mg Discharge Plan Admission Admit Date/Time: 08/17/23 16:37 Primary Reason for Your Visit: Chest Pain Attending Provider: Dorene Rodriguez Primary Care Provider: Jer Jacobo Consulting Providers: Conchita Ty Discharge Orders/Prescriptions Prescriptions: Continued aspirin 81 mg tablet,delayed release (DR/EC) 81 mg PO DAILY Qty: 90 3RF Hold Instructions: Do not start until instructed by Dr. Mujica atorvastatin 10 mg tablet 10 mg PO QHS Qty: 90 3RF amlodipine 5 mg tablet 5 mg PO DAILY Qty: 90 3RF clobetasol 0.05 % cream 1 applic topical DAILY PRN (Reason: KNEE IRRITATION) amoxicillin-pot clavulanate 875-125 mg tablet 1 tab PO BID Qty: 24 0RF telmisartan 80 mg tablet 80 mg PO DAILY Qty: 90 3RF clopidogrel 75 mg tablet 75 mg PO DAILY Qty: 90 3RF Hold Instructions: Do not start until instructed to do so by Dr. Mujica Referrals / Follow Up: Jer Jacobo MD [Primary Care Provider] - Within 2 Weeks Cisco Lincoln MD [Med Staff - Active Staff] - See Referral Note (as scheduled) Disposition Disposition (needs filled in before D/C Order can be placed): Home, Self Care Charges/Coding Visit Charges Inpatient E&M: 14242 Disch Hosp >30min
--- NOTE | 2023-08-29 11:20 | ECQM.STEMI ---
STEMI STEMI ED Door Time / Other REG STEMI EKG Time (1) Acute ST elevation myocardial infarction (STEMI): Acute ~08/17/23 15:38 Balloon/Aspiration Date-Time Date of Balloon/Aspiration:: 08/17/23 Time of Balloon/Aspiration:: 16:04
== END 2023-08-19 12:56 | disposition home or self-care (01) | DRG 321 ==
LOC: ED 16:03 → ICU 17:03 → PCU 08-18 13:32
PROVIDERS: Internal Medicine Cardiovascular Disease; Admitting Provider Student in an Organized Health Care Education/Training Program; Emergency Provider Emergency Medicine; PCP Family Medicine; Visit Provider Internal Medicine
DX: T82.855A Stenosis of coronary artery stent, initial encounter (principal); I21.19 ST elevation (STEMI) myocardial infarction involving other coronary artery of inferior wall; N17.9 Acute kidney failure, unspecified; J36 Peritonsillar abscess; J44.9 Chronic obstructive pulmonary disease, unspecified; I10 Essential (primary) hypertension; I77.819 Aortic ectasia, unspecified site; I07.1 Rheumatic tricuspid insufficiency; E78.5 Hyperlipidemia, unspecified; I25.10 Atherosclerotic heart disease of native coronary artery without angina pectoris; Z91.128 Patient's intentional underdosing of medication regimen for other reason; T45.526A Underdosing of antithrombotic drugs, initial encounter; R04.0 Epistaxis; Z79.82 Long term (current) use of aspirin; Z79.02 Long term (current) use of antithrombotics/antiplatelets; Z79.899 Other long term (current) drug therapy; Z87.891 Personal history of nicotine dependence; Z95.5 Presence of coronary angioplasty implant and graft; Y71.2 Prosthetic and other implants, materials and accessory cardiovascular devices associated with adverse incidents
CPT/HCPCS: 36415; 80048; 80053; 80061; 83036; 84484; 85025; 85027; 85347; 85610; 85730; 92941; 93005; 93306; 93458; 99152; 99153; 99284; C1874; J7030; Q9957; Q9967; A4216; C1725; C1769; C1887; C1894; C9606

== ENCOUNTER → 2023-11-26 | Outpatient (CLI) | payer OTHER, SELFPAY ==
[2021-03-30 09:40] VITALS: BMI 25.4
[2023-11-26 08:18] LABS: ALB/GLOB Ratio 1.1 RATIO (0.9-2.4); AST(SGOT) 21 U/L (15-37); Alanine Aminotransfer ALT/SGPT 25 U/L (16-61); Albumin, Serum 3.7 g/dL (3.2-5.0); Alkaline Phosphatase 70 U/L (45-117); Anion Gap 5 (5-15); BUN 22 mg/dL (7-18); BUN/Creat Ratio 20.8 RATIO (10-20); Bilirubin, Direct 0.12 mg/dL (0.00-0.30); CPK Total, Creatine Kinase 180 U/L (39-308); Calcium,Total 8.6 mg/dL (8.5-10.1); Chloride 109 mmol/L (98-107); Cholesterol 128 mg/dL (200); Creatinine, Serum 1.06 mg/dL (0.70-1.30); EST Glomerular Filtration Rate 75 mL/min (>60); Est Glom Filt Rate - Afr Amer 91 mL/min (>60); Globulin 3.4 g/dL (2.2-4.2); Glucose 107 mg/dL (74-106); High Density Lipoprotein 43 mg/dL; Potassium 4.7 mmol/L (3.5-5.1); Protein, Total 7.1 g/dL (6.4-8.2); Sodium Level 137 mmol/L (136-145); Triglycerides 165 mg/dL; Very Low Density Lipoprotein 33 mg/dL (5-40)
== END | disposition home or self-care (01) ==
LOC: OLS.ABSOLU 07:13 → LAB 11-28 09:44
PROVIDERS: PCP Family Medicine; Referring Provider Internal Medicine Cardiovascular Disease; Visit Provider Internal Medicine Cardiovascular Disease
DX: E78.5 Hyperlipidemia, unspecified (principal); I10 Essential (primary) hypertension; I25.10 Atherosclerotic heart disease of native coronary artery without angina pectoris; R06.02 Shortness of breath
CPT/HCPCS: 36415; 80053; 80061; 82248; 82550

== ENCOUNTER → 2024-03-30 | Outpatient (CLI) | payer OTHER, SELFPAY ==
[2021-03-30 09:40] VITALS: BMI 25.4
== END | disposition home or self-care (01) ==
LOC: MFPLAB 14:42
PROVIDERS: PCP Family Medicine; Referring Provider Family Medicine; Visit Provider Family Medicine
DX: Z12.5 Encounter for screening for malignant neoplasm of prostate (principal)
CPT/HCPCS: 36415; 84153; G0103

== ENCOUNTER → 2024-05-19 | Outpatient (CLI) | payer OTHER, SELFPAY ==
[2021-03-30 09:40] VITALS: BMI 25.4
[2024-05-19 09:06] LABS: ALB/GLOB Ratio 1.1 RATIO (0.9-2.4); AST(SGOT) 24 U/L (15-37); Alanine Aminotransfer ALT/SGPT 25 U/L (16-61); Albumin, Serum 3.7 g/dL (3.2-5.0); Alkaline Phosphatase 69 U/L (45-117); Anion Gap 5 (5-15); BUN 22 mg/dL (7-18); BUN/Creat Ratio 20.6 RATIO (10-20); CPK Total, Creatine Kinase 197 U/L (39-308); Calcium,Total 8.6 mg/dL (8.5-10.1); Chloride 110 mmol/L (98-107); Cholesterol 189 mg/dL (200); Creatinine, Serum 1.07 mg/dL (0.70-1.30); EST Glomerular Filtration Rate 74 mL/min (>60); Est Glom Filt Rate - Afr Amer 90 mL/min (>60); Globulin 3.4 g/dL (2.2-4.2); Glucose 98 mg/dL (74-106); High Density Lipoprotein 35 mg/dL; Protein, Total 7.1 g/dL (6.4-8.2); Sodium Level 140 mmol/L (136-145); Triglycerides 230 mg/dL; Very Low Density Lipoprotein 46 mg/dL (5-40)
== END | disposition home or self-care (01) ==
LOC: LAB 07:04
PROVIDERS: PCP Family Medicine; Referring Provider Internal Medicine Cardiovascular Disease; Visit Provider Internal Medicine Cardiovascular Disease
DX: I10 Essential (primary) hypertension (principal); R06.02 Shortness of breath; R94.39 Abnormal result of other cardiovascular function study; I25.119 Atherosclerotic heart disease of native coronary artery with unspecified angina pectoris; M79.10 Myalgia, unspecified site; E78.2 Mixed hyperlipidemia
CPT/HCPCS: 36415; 80053; 80061; 82550

== ENCOUNTER → 2024-07-27 | Outpatient (CLI) | payer OTHER, SELFPAY ==
[2021-03-30 09:40] VITALS: BMI 25.4
[2024-07-27 17:41] LABS: Absolute Lymphocyte Count 2.07 X10^3/uL (0.83-4.51); Absolute Neutrophil Count 3.9 X10^3/uL (2.0-7.7); Basophil# 0.02 X10^3/uL; Basophil% 0.3 % (0-1); Eosinophils% 1.4 % (0-5); Hematocrit 40.4 % (40-54); Hemoglobin 13.5 g/dL (13.0-16.5); Lymphocyte # 2.07 X10^3/ul (0.83-4.51); Mean Corp Hgb Conc 33.4 g/dL (32-36); Mean Corpuscular Hgb 32.3 pg (27.0-32.0); Mean Corpuscular Volume 96.7 fL (80-94); Monocyte# 0.78 X10^3/uL; Monocyte% 11.3 % (0-10); NRBC Flagged by Analyzer 0 % (0-5); Neutrophil # 3.91 X10^3/uL (2.7-7.7); Neutrophil % 56.7 % (47-70); Platelet Count 261 K/mm3 (150-450); RBC Distribution Width CV 12.4 % (11.6-14.6); RBC Distribution Width SD 44.3 fl (35.1-43.9); Red Blood Count 4.18 M/mm3 (4.6-6.2); White Blood Count 6.9 K/mm3 (4.4-11.0)
[2024-07-27 18:31] LABS: ALB/GLOB Ratio 1.8 RATIO (0.9-2.4); AST(SGOT) 25 U/L (<=37); Alanine Aminotransfer ALT/SGPT 22 U/L (<=46); Albumin, Serum 4.5 g/dL (3.4-4.8); Alkaline Phosphatase 72 U/L (40-129); Anion Gap 11 (5-15); BUN 18 mg/dL (4-19); BUN/Creat Ratio 17.8 RATIO (10-20); Carbon Dioxide 20.6 mmol/L (21.0-32.0); Chloride 105 mmol/L (98-108); Cholesterol 104 mg/dL (<=200); Creatinine, Serum 1.01 mg/dL (0.70-1.20); EST Glomerular Filtration Rate 83 (>60); Globulin 2.6 g/dL (2.2-4.2); Glucose 88 mg/dL (70-99); High Density Lipoprotein 34 mg/dL; Low Density Lipoprotein Calc. 23 mg/dL; PSA,Total- Diagnostic 0.68 ng/mL (0.00-4.00); Potassium 4.7 mmol/L (3.3-5.1); Protein, Total 7.1 g/dL (5.9-8.4); Sodium Level 136 mmol/L (133-145); Total Bilirubin 0.33 mg/dL (0.00-1.30); Triglycerides 236 mg/dL; Very Low Density Lipoprotein 47 mg/dL (5-40); cholesterol:hdl ratio screen 3.08
== END | disposition home or self-care (01) ==
LOC: MFPLAB 15:54
PROVIDERS: PCP Family Medicine; Referring Provider Family Medicine; Visit Provider Family Medicine
DX: I25.10 Atherosclerotic heart disease of native coronary artery without angina pectoris (principal); N40.1 Benign prostatic hyperplasia with lower urinary tract symptoms
CPT/HCPCS: 36415; 80053; 80061; 84153; 85025

== ENCOUNTER → 2024-12-06 | Outpatient (CLI) | payer OTHER, SELFPAY ==
[2021-03-30 09:40] VITALS: BMI 25.4
--- OUTSIDE RECORDS SUMMARY | 2024-12-06 06:42 | XMS RPT_ITS | CCD ---
Author Organization [facility] Care Team Providers Care Gaming Associate Name Role Phone Dr. David Jacobo Primary Care Provider Dr. David Jacobo Referring Provider [phone] Roof BLOCKER METAL BASE, BLOCKER METAL BASE-C Tanner Downs Attending Provider Dr. David Jacobo Primary Care Provider [phone] David Jacobo Referring Provider [phone] Dr. César Pichardo Attending Provider [phone]([facility])[phone] Dr. César Pichardo Referring Provider 1([facility])[phone] Dr. César Pichardo Other Provider Dr. David Jacobo Primary Care Provider [phone] David Jacobo Referring Provider [phone] Roof BLOCKER METAL BASE, ROSEANN-Juwan Downs Attending Provider DAVID JACOBO MD A Primary Care Physician [phone] DAVID JACOBO MD A Primary Care Unavailable ADDIE ONTIVEROS MD Attending Unavailable Dr. David Jacobo Primary Care Provider [phone] David Jacobo Referring Provider [phone] Dr. Lia Mohan Attending Provider Dr. Sav Abrams Attending Provider YOLETTE [place] Attending Provider Dr. Nydia Rivers Emergency Provider [phone] Dr. Eleno Quijano Attending Provider Unavailable Dr. Eleno Qujiano Admit Provider Unavailable Dr. Eleno Quijano Other Provider Unavailable Dr. Cisco Lincoln Other Provider Dr. Dorene Rodriguez Attending Provider Dr. Dorene Rodriguez Other Provider Dr. David Myers Emergency Provider Dr. Conchita Ty Admit Provider Dr. Conchita Ty Other Provider Donnell MORENO, David Del Rosario Primary Care Provider DAVID JACOBO Primary Care Unavailable Dr. David Jacobo MD Primary Care Provider Dr. David Jacobo MD Attending Provider Donnell MORENO, Dr. Randle Referring Provider Conner BLOCKER METAL BASE-C, Vi Attending Provider Jacobo, David Primary Care Unavailable Jose Alberto, Sav Attending Unavailable Jacobo, David Referring Unavailable Jacobo, David Primary Care Unavailable Conner BLOCKER METAL BASE, Vi Attending Unavailable Jacobo, David Referring Unavailable Jacobo, David Primary Care Unavailable Jose Alberto, Sav Attending Unavailable Jose Alberto, Sav Referring Unavailable Jacobo, David Primary Care Unavailable Jacobo, David Attending Unavailable Jacobo, David Referring Unavailable Jacobo, David Referring Unavailable Jacobo, David Primary Care Unavailable Jacobo, David Attending Unavailable Jacobo, David Primary Care Unavailable Conner BLOCKER METAL BASE, Vi Attending Unavailable Conner BLOCKER METAL BASE, Vi Referring Unavailable Allergies Allergy Classification Reported Allergen(s) Allergy Type Date of Onset Reaction(s) Facility (11 sources) Isosorbide Drug Allergy 3 Dizzy, lightheaded, short of breath [facility] (11 sources) Lisinopril Drug Allergy 3 dry persistent cough [facility] (1 source) atorvastatin Drug Allergy 5 Myalgias [facility] (1 source) atorvastatin Drug Allergy 5 [facility] (1 source) Isosorbide Drug Allergy 5 [facility] (1 source) Lisinopril Drug Allergy 5 [facility] Medications Current Medications Medication Drug Class(es) Dates Sig (Normalized) Sig (Original) 8 hr acetaminophen 650 mg extended release oral tablet (1 source) Start: 05-09-2024 Acetaminophen (Tylenol Arthritis Pain) 650 mg tablet extended release Active 1300 mg PO TWICE A DAY as needed May 09, 2024 1:00am apremilast 30 mg oral tablet (1 source) Start: 11-02-2024 take 1 tablet by mouth once daily Apremilast (Otezla) 30 mg tablet Active 30 mg PO daily November 02, 2024 12:00am aspirin 81 mg delayed release oral tablet (20 sources) Platelet Aggregation Inhibitor, Nonsteroidal Anti-inflammatory Drug Start: 11-17-2020 End: 12-09-2023 take 1 tablet by mouth once aspirin, enteric coated (ASPIRIN, ENTERIC COATED) 81 mg EC tablet Take 1 tablet by mouth every afternoon. 12/09/2023 Active clobetasol propionate 0.5 mg/ml topical cream (5 sources) Corticosteroid Start: 08-14-2023 Clobetasol 0.05 % cream Active 1 NMA TOPICAL DAILY as needed for KNEE IRRITATION August 14, 2023 12:00am clopidogrel 75 mg oral tablet (20 sources) P2Y12 Platelet Inhibitor Start: 02-01-2022 End: 12-09-2023 take 1 tablet by mouth once daily Clopidogrel 75 mg tablet Active 75 mg PO DAILY 90 December 09, 2023 11:26am Start: 02-24-2021 End: 06-22-2021 take 1 tablet by mouth once daily Clopidogrel (Plavix) 75 mg tablet Discontinued 75 mg PO daily 93 February 24, 2021 1:00am June 22, 2021 4:59pm fluticasone propionate 0.05 mg/actuat metered dose nasal spray (2 sources) Corticosteroid Start: 12-12-2023 take 2 spray(s) by mouth once daily fluticasone (FLONASE) 50 mcg/actuation nasal spray Use 2 Sprays in each nostril once daily. Rinse mouth after use. 9.9 mL 12/12/2023 Active hydroCHLOROthiazide 25 mg / triamterene 37.5 mg oral capsule (2 sources) Potassium-sparing Diuretic, Thiazide Diuretic Start: 01-05-2012 take 1 capsule by mouth once daily triamterene-hydro chlorothiazide 37.5-25 mg per capsule Indications: Vertigo , Meniere's disease Take 1 capsule by mouth once daily. 30 capsule 0 01/05/2012 Active naproxen sodium 220 mg oral capsule (1 source) Nonsteroidal Anti-inflammatory Drug Start: 11-02-2024 take 1 capsule by mouth every twelve hours as needed Naproxen Sodium (Aleve) 220 mg capsule Active 220 mg PO Q12H as needed November 02, 2024 12:00am rosuvastatin calcium 10 mg oral tablet (1 source) HMG-CoA Reductase Inhibitor Start: 05-21-2024 take 1 tablet by mouth at bedtime Rosuvastatin 10 mg tablet Active 10 mg PO AT BEDTIME 90 3 May 21, 2024 1:00am telmisartan 80 mg oral tablet (20 sources) Angiotensin 2 Receptor Bambi Start: 01-04-2023 End: 12-09-2023 take 1 tablet by mouth once daily Telmisartan 80 mg tablet Active 80 mg PO DAILY 90 3 December 09, 2023 11:26am Start: 12-10-2022 End: 01-04-2023 take 80 mg by mouth once daily Telmisartan Discontinue d 80 MG PO DAILY December 10, 2022 3:10pm January 04, 2023 8:55am Start: 12-10-2022 End: 01-04-2023 take 1 tablet by mouth once daily Telmisartan 40 mg tablet Discontinued 80 mg PO DAILY December 10, 2022 3:10pm January 04, 2023 8:55am Completed/Discontinued Medications Medication Drug Class(es) Dates Sig (Normalized) Sig (Original) 0.4 ml adalimumab 100 mg/ml auto-injector (15 sources) Tumor Necrosis Factor Bambi Start: 11-15-2020 End: 12-02-2020 Adalimumab (Humira(Cf) Pen) 40 mg/0.4 mL pen injector kit Discontinued 40 mg SC ONE TIME November 15, 2020 12:00am December 02, 2020 12:14pm amLODIPine 5 mg oral tablet (5 sources) Dihydropyridine Calcium Channel Bambi Start: 08-02-2023 End: 09-20-2023 take 1 tablet by mouth once daily Amlodipine 5 mg tablet Discontinued 5 mg PO DAILY 90 3 August 02, 2023 12:00am September 20, 2023 2:30pm amoxicillin 875 mg / clavulanate 125 mg oral tablet (4 sources) Penicillin-class Antibacterial Start: 08-15-2023 End: 09-20-2023 Amoxicillin-Pot Clavulanate 875-125 mg tablet Discontinued 1 {tbl} PO TWICE A DAY August 15, 2023 12:00am September 20, 2023 2:00pm Start: 08-15-2023 take 1 tablet by aishwarya th twice daily Amoxicillin-Pot Clavulanate Active 1 TABLET PO TWICE A DAY August 15, 2023 12:00am atorvastatin 10 mg oral tablet (20 sources) HMG-CoA Reductase Inhibitor Start: 08-02-2023 End: 05-21-2024 take 1 tablet by mouth at bedtime Atorvastatin 10 mg tablet Discontinued 10 mg PO AT BEDTIME 90 December 09, 2023 11:26am May 21, 2024 5:12pm Start: 02-01-2022 End: 08-02-2023 take 1 tablet by mouth at bedtime Atorvastatin 20 mg tablet Discontinued 20 mg PO AT BEDTIME 90 February 21, 2023 1:08pm August 02, 2023 1:27pm Start: 07-10-2021 End: 02-01-2022 Atorvastatin 40 mg tablet Discontinued 20 mg PO AT BEDTIME 90 July 10, 2021 8:25am February 01, 2022 4:10pm Start: 07-10-2021 End: 02-01-2022 take 20 mg by mouth at bedtime Atorvastatin Discontinu ed 20 MG PO AT BEDTIME July 10, 2021 8:25am February 01, 2022 4:10pm Start: 11-17-2020 End: 07-10-2021 take 1 tablet by mouth at bedtime Atorvastatin 40 mg tablet Discontinued 40 mg PO AT BEDTIME 90 December 02, 2020 2:01pm July 10, 2021 8:25am 24 hr isosorbide mononitrate 30 mg extended release oral tablet (20 sources) Nitrate Vasodilator Start: 12-29-2021 End: 01-01-2022 take 1 tablet by mouth once daily, then take 1 tablet by mouth every twenty-four hours Isosorbide Mononitrate 30 mg tablet extended release 24 hr Discontinued 30 mg PO DAILY 90 December 29, 2021 11:15am January 01, 2022 9:25am Start: 01-22-2021 End: 11-18-2021 take 1 tablet by mouth once daily, then take 1 tablet by mouth every twenty-four hours Isosorbide Mononitrate 30 mg tablet extended release 24 hr Discontinued 30 mg PO DAILY 90 3 October 14th, 2021 12:16pm November 18, 2021 2:58pm On Hold: ? Migraine 06/02/21 lisinopril 20 mg oral tablet (20 sources) Angiotensin Converting Enzyme Inhibitor Start: 03-20-2021 End: 03-20-2021 take 2 tablets by mouth once daily Lisinopril 10 mg tablet Discontinued 20 mg PO DAILY 90 3 March 20, 2021 5:34pm March 20, 2021 5:36pm Start: 03-20-2021 End: 03-20-2021 take 20 mg by mouth once daily Lisinopril Discontinued 20 MG PO DAILY 90 March 20, 2021 5:34pm March 20, 2021 5:36pm Start: 03-20-2021 End: 02-01-2022 take 1 tablet by mouth once daily Lisinopril 20 mg tablet Discontinued 20 mg PO DAILY 90 December 07, 2021 10:40am February 01, 2022 5:33pm Start: 11-17-2020 End: 03-20-2021 take 1 tablet by mouth once daily Lisinopril 10 mg tablet Discontinued 10 mg PO DAILY 90 December 02, 2020 2:01pm March 20, 2021 5:34pm losartan potassium 50 mg oral tablet (11 sources) Angiotensin 2 Receptor Bambi Start: 02-01-2022 End: 12-10-2022 take 1 tablet by mouth once daily Losartan 50 mg tablet Discontinued 50 mg PO DAILY 10 03February 01, 2022 12:00am December 10, 2022 2:29pm meclizine hydrochloride 25 mg oral tablet (15 sources) Antiemetic Start: 05-29-2021 End: 11-18-2021 take 1 tablet by mouth four times daily as needed for dizziness Meclizine 25 MG tablet Discontinued 25 mg PO 4 TIMES DAILY NEEDED as needed for Dizziness May 29, 2021 1:00am November 18, 2021 2:57pm ondansetron 4 mg disintegrating oral tablet (15 sources) Serotonin-3 Receptor Antagonist Start: 06-02-2021 End: 11-18-2021 take 2 tablets by mouth every six hours as needed Ondansetron 4 mg tablet,disintegra ting Discontinued 8 mg PO EVERY 6 HOURS as needed June 02, 2021 1:00am November 18, 2021 2:57pm Start: 06-02-2021 End: 11-18-2021 take 8 mg by mouth every six hours Ondansetron Discontinued 8 MG PO EVERY 6 HOURS June 02, 2021 1:00am November 18, 2021 2:57pm penicillin v potassium 500 mg oral tablet (5 sources) Start: 08-13-2023 End: 08-15-2023 take 1 tablet by mouth twice daily Penicillin V Potassium 500 mg tablet Discontinued 500 mg PO TWICE A DAY 20 August 13, 2023 12:00am August 22, 2023 12:00am August 15, 2023 10:05am predniSONE 20 mg oral tablet (20 sources) Start: 08-13-2023 End: 08-15-2023 take 2 tablets by mouth once daily at mealtime Prednisone 20 mg tablet Discontinued 40 mg PO DAILY 6 August 13, 2023 12:00am August 15, 2023 12:00am August 15, 2023 10:05am take with food Start: 08-13-2023 End: 08-15-2023 take 40 mg by mouth once daily at mealtime Prednisone Discontinued 40 MG PO DAILY 09 11August 13, 2023 12:00am August 15, 2023 10:05am take with food Start: 05-29-2021 End: 11-18-2021 take 1 tablet by mouth once daily Prednisone 10 mg tablet Discontinued 10 mg PO DAILY May 29, 2021 1:00am November 18, 2021 2:57pm 12 hr ranolazine 500 mg extended release oral tablet (11 sources) Anti-anginal Start: 01-01-2022 End: 06-08-2022 take 1 tablet by mouth twice daily Ranolazine (Ranexa) 500 mg tablet extended release 12 hr Discontinued 500 mg PO TWICE A DAY 60 January 01, 2022 12:00am June 08, 2022 5:25pm SUMAtriptan 50 mg oral tablet (15 sources) Serotonin-1b and Serotonin-1d Receptor Agonist Start: 06-02-2021 End: 11-18-2021 take 1 tablet by mouth once as needed Sumatriptan Succinate 50 mg tablet Discontinued 50 mg PO ONCE as needed June 02, 2021 1:00am November 18, 2021 2:58pm ticagrelor 90 mg oral tablet (20 sources) Start: 06-22-2021 End: 02-01-2022 take 1 tablet by mouth twice daily Ticagrelor (Brilinta) 90 mg tablet Discontinued 90 mg PO TWICE A DAY 180 3 December 07, 2021 8:39am February 01, 2022 5:34pm Start: 11-17-2020 End: 02-24-2021 take 1 tablet by mouth twice daily Ticagrelor (Brilinta) 90 mg tablet Discontinued 90 mg PO TWICE A DAY 180 3 December 02, 2020 2:01pm February 24, 2021 3:13pm Problems Active Problems Problem Classification Problem Date Documented Da te Episodic/Chronic Acute and chronic tonsillitis (10 sources) Peritonsillar abscess; Translations: [Peritonsillar abscess] 08-14-2023 Episodic Acute myocardial infarction (5 sources) Acute ST segment elevation myocardial infarction; Translations: [ST elevation (STEMI) myocardial infarction of unspecified site] Onset: 08-10-2023 08-17-2023 Chronic Conditions associated with dizziness or vertigo (16 sources) Vertigo; Translations: [Dizziness and giddiness] 06-06-2021 Episodic Coronary atherosclerosis and other heart disease (20 sources) Coronary atherosclerosis; Translations: [Atherosclerotic heart disease of [place] coronary artery without angina pectoris] Onset: 11-02-2024 Chronic Coronary atherosclerosis and other heart disease (20 sources) Stented coronary artery; Translations: [Presence of coronary angioplasty implant and graft] Onset: 11-09-2020 Episodic Comment on above: PTCA/BELKYS Mid RPDA us ing [place] Colbert 2.75x34 mm 08/17/23 Disorders of lipid metabolism (20 sources) Hyperlipidemia; Translations: [Hyperlipidemia, unspecified] Chronic Essential hypertension (20 sources) Essential hypertension; Translations: [Essential (primary) hypertension] Onset: 06-04-2024 Chronic Nonmalignant breast conditions (13 sources) Breast lump; Translations: [Unspecified lump in the right breast, unspecified quadrant] 06-17-2023 Episodic Nonspecific chest pain (18 sources) Chest pain; Translations: [Chest pain, unspecified] Onset: 11-02-2024 11-25-2020 Episodic Other connective tissue disease (15 sources) Muscle pain; Translations: [Myalgia, unspecified site] 06-02-2021 Episodic Other connective tissue disease (3 sources) Myalgia, unspecified site; Translations: [Myalgia and myositis, unspecified] Episodic Other lower respiratory disease (13 sources) Dyspnea; Translations: [Shortness of breath] 12-04-2021 Episodic Other lower respiratory disease (1 source) Cough; Translations: [Acute cough] 12-12-2023 Episodic Other upper respiratory infections (10 sources) Streptococcal sore throat; Translations: [Streptococcal pharyngitis] 08-13-2023 Episodic Residual codes; unclassified (15 sources) Tobacco user; Translations: [Tobacco use] 12-02-2020 Episodic Residual codes; unclassified (1 source) Bilateral lower limb edema; Translations: [Localized edema] 09-20-2023 Episodic Spondylosis; intervertebral disc disorders; other back problems (2 sources) Neck pain; Translations: [Cervicalgia] Episodic Viral infection (15 sources) Herpes zoster; Translations: [Zoster without complications] 09-15-2015 Episodic Past or Other Problems Problem Classification Problem Date Documented Date Episodic/Chronic Other screening for suspected conditions (not mental disorders or infectious disease) (14 sources) Cardiovascular stress test abnormal; Translations: [Abnormal result of other cardiovascular function study] Onset: 2024 12-04-2021 Episodic Residual codes; unclassified (12 sources) History of cardiac catheterization; Translations: [Other specified postprocedural states] Onset: 12-10-2021 12-29-2021 Episodic Comment on above: LEFT MAIN: proximal: smooth: 25% stenosis followed by mid mild luminal irregularities; LEFT ANTERIOR DESCENDING ARTERY: PROX LAD: Mild luminal irregularities, MID LAD: to distal: smaller caliber vessel appearing angiographically normal; CIRCUMFLEX ARTERY: Angiographically normal; RIGHT CORONARY ARTERY: Mild luminal irregularities, MID RCA: Previously placed stent is patent, DISTAL RCA: 50 % Stenosis ;RT PDA: Mid - Previously placed stent is patent; RIGHT AV SEGMENT: proximal: 50 - 75 % Stenosis; per cardiac cath Dr. Pichardo 12/29/21 Results Test Name Value Interpretation Reference Range Facility Cardiology Visit Reporton Cardiology Visit Report [facility] [address] [place], [place] [address] OFFICE VISIT Date of Service: 11/02/24 MR#: [id number] Acct: [id number] Name: FUAD KERR Rep #: [id number] : 1960 Provider: YOLETTE caballero Age/Sex: 64/M Location: [facility] Status: Signed HPI HPI History of Present Illness Details: This is a 64-year-old male who presents today for cardiovascular follow-up visit. He has a history of coronary artery disease has had drug-eluting stents placed to his mid RCA and mid right PDA in 2020. In 2023, he presented with an inferior STEMI after having stopped aspirin and clopidogrel for a surgical procedure. 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 Successful percutaneous intervention was performed with placement of a drug-eluting stent. From a cardiac standpoint, the patient is doing well. He does acknowledge chest pain with exertion, and at work in the hot weather. He states this is located left chest, and is a soreness. He denies any palpitations, pressure or heaviness. He does acknowledge slight SOB with exertion. He denies Orthopnea, and PND. He does not have bleeding issues; no blood in urine, stool, or nosebleeds. He denies any decrease in energy level, myalgias, or claudication. He does not have edema, or sudden weight gain. He does acknowledge occasional lightheadedness with working hard. He denies dizziness, syncopal or near syncopal episodes, and headaches. 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 Required: No Accompanied by: Is patient in pain?: No Allergies isosorbide Adverse Reaction (Intermediate, Verified 11/02/24 14:52) Dizzy, lightheaded, short of breath lisinopril Adverse Reaction (Intermediate, Verified 11/02/24 14:52) dry persistent cough atorvastatin Adverse Reaction (Mild, Verified 11/02/24 14:52) Myalgias Medications ???Medication ???Instructions ???Recorded ???Confirmed ???Type clobetasol 0.05 % topical cream 1 applic topical DAILY PRN KNEE 11/02/24 History IRRITATION aspirin 81 mg tablet,delayed 81 mg PO DAILY #90 tabs 12/09/23 0 11/02/24 Rx release (Adult Aspirin Regimen) clopidogrel 75 mg tablet 75 mg PO DAILY #90 tabs 12/09/23 0 11/02/24 Rx telmisartan 80 mg tablet 80 mg PO DAILY #90 tabs 12/09/23 0 11/02/24 Rx acetaminophen 650 mg 1,300 mg PO BID PRN 05/09/2411/02 History tablet,extended release (Tylenol Arthritis Pain) rosuvastatin 10 mg tablet 10 mg PO QHS #90 tabs 05/21/24 Rx apremilast 30 mg tablet (Otezla) 30 mg PO QDAY 11/02/24 11/02/24 Hi story naproxen sodium 220 mg capsule 220 mg PO Q12H PRN 11/02/24 History (Aleve) Ejection fraction %: 65 Have you fallen in the past year?: No PFSH Medical History Acute ST elevation myocardial infarction (STEMI) ( 08/17/23) Strep pharyngitis Abscess, peritonsillar Dyslipidemia 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 disease Breast mass, right History of left heart catheterization (LHC) ( 12/29/21) SOB (shortness of breath) Abnormal stress test Angina pectoris HLD (hyperlipidemia) Myalgia Tobacco abuse Essential hypertension Presence of stent in coronary artery ( 11/15/20) Atherosclerotic heart disease of [place] coronary artery without angina pectoris STEMI (ST elevation myocardial infarction) Psoriasis Smoker Psoriatic arthritis Surgical History Presence of stent of CABG ( 08/17/23) History of coronary artery stent placement Presence of coronary angioplasty implant and graft ( 11/15/20) Family History Mother Thyroid disorder Social History Smoking Status: Former smoker Tobacco: How many years used: 42 how long ago did patient quit smokin months alcohol intake: current details: occassional substance use type: does not use caffeine: Yes Type: coffee Number of servings: 1 ROS Const Const: Negative for fatigue, weakness, fever(s), headache(s), chills, frequent falls, weight gain or weight loss Eyes Eyes: Negative for blind spots, loss of peripheral vision, transient loss of vision, blurry vision, change in vision, double vision, floaters or tunnel vision ENT ENT: Negative for headache(s), dizziness, Nosebleed/epistaxis, balance problems or neck pain Cardio Chest Pain: Yes Lele (more content not included)... Normal [facility] Absolute lymphocyte countOrd ered By: David Jacobo on 07-27-2024 Lymphocytes Auto (Unsp spec) [#/Vol] 2.07 10*3/uL 0.83-4.51 [facility] Absolute neutrophil countOrd ered By: David Jacobo on 07-27-2024 Neutrophils (Bld) [#/Vol] 3.9 10*3/uL 2.0-7.7 [facility] Anion gap in Serum or Plasma Ordered By: David Jacobo on 07-27-2024 Anion gap [Moles/Vol] 11 mmol/L 5-15 [facility] Automated lymphocyte count a s percentage of total leukocytesOrdered By: David Jacobo on 07-27-2024 Lymphocytes/100 WBC Auto (Unsp spec) 30.0 % 19-41 [facility] BUN/creatinine ratioOrdered By: David Jacobo on 07-27-2024 Urea nitrogen/Creatinine [Mass ratio] 17.8 mg/mg 10-20 [facility] Basophil percentageOrdered B y: David Jacobo on 07-27-2024 Basophils/100 WBC (Bld) 0.3 % 0-1 [facility] Bilirubin, totalOrdered By: David Jacobo on 07-27-2024 Bilirubin [Mass/Vol] 0.33 mg/dL 0.00-1.30 [facility] CBC W/Diff, Automatedon 07-10 Absolute Lymph 2.07 X10 3/uL Normal 0.83-4.51 [facility] Comment on above: Order Comment: Order Date: 07/27/24 Order Info: [id number] - CBCD Performed By: #### L 100.0100, L500.4100, L500.4050 #### [facility] [address] [place], [address] Absolute Neut 3.9 X10 3/uL Normal 2.0-7.7 [facility] Comment on above: Order Comment: Order Date: 07/27/24 Order Info: [id number] - CBCD Performed By: #### L 100.0100, L500.4100, L500.4050 #### [facility] [address] [place], [address] Basophils/100 WBC (Bld) 0.3 % Normal 0-1 [facility] Comment on above: Order Comment: Order Date: 07/27/24 Order Info: 018- - CBCD Performed By: #### L 100.0100, L500.4100, L500.4050 #### [facility] [address] [place], [address] Eosinophils/100 WBC (Bld) 1.4 % Normal 0-5 [facility] Comment on above: Order Comment: Order Date: 07/27/24 Order Info: 018- - CBCD Performed By: #### L 100.0100, L500.4100, L500.4050 #### [facility] [address] [place], [address] Erythrocyte distribution width (RBC) [Ratio] 12.4 % Normal 11.6-14.6 [facility] Comment on above: Order Comment: Order Date: 07/27/24 Order Info: [id number] - CBCD Performed By: #### L 100.0100, L500.4100, L500.4050 #### [facility] [address] [place], [address] Hematocrit (Bld) [Volume fraction] 40.4 % Normal 40-54 [facility] Comment on above: Order Comment: Order Date: 07/27/24 Order Info: [id number] - CBCD Performed By: #### L 100.0100, L500.4100, L500.4050 #### [facility] [address] [place], [address] Hemoglobin (Bld) [Mass/Vol] 13.5 g/dL Normal 13.0-16.5 [facility] Comment on above: Order Comment: Order Date: 07/27/24 Order Info: 018- - CBCD Performed By: #### L 100.0100, L500.4100, L500.4050 #### [facility] [address] [place], [address] IG% 0.300 Normal 0.0-0.9 [facility] Comment on above: Order Comment: Order Date: 07/27/24 Order Info: [id number] - CBCD Result Comment: IG% - Immature Granulocytes (promyelocytes, myelocytes and metamyelocytes) > 1% indicates that a LEFT SHIFT is Present. Performed By: #### L 100.0100, L500.4100, L500.4050 #### [facility] [address] [place], [address] Lymphocytes/100 WBC (Bld) 30.0 % Normal 19-41 [facility] Comment on above: Order Comment: Order Date: 07/27/24 Order Info: 018- - CBCD Performed By: #### L 100.0100, L500.4100, L500.4050 #### [facility] [address] [place], [address] MCH (RBC) [Entitic mass] 32.3 pg High 27.0-32.0 [facility] Comment on above: Order Comment: Order Date: 07/27/24 Order Info: 018- - CBCD Performed By: #### L 100.0100, L500.4100, L500.4050 #### [facility] [address] [place], [address] MCHC (RBC) [Mass/Vol] 33.4 g/dL Normal 32-36 [facility] Comment on above: Order Comment: Order Date: 07/27/24 Order Info: [id number] - CBCD Performed By: #### L 100.0100, L500.4100, L500.4050 #### [facility] [address] [place], [address] MCV (RBC) [Entitic vol] 96.7 fL High 80-94 [facility] Comment on above: Order Comment: Order Date: 07/27/24 Order Info: [id number] - CBCD Performed By: #### L 100.0100, L500.4100, L500.4050 #### [facility] [address] [place], [address] Monocytes/100 WBC (Bld) 11.3 % High 0-10 [facility] Comment on above: Order Comment: Order Date: 07/27/24 Order Info: 018- - CBCD Performed By: #### L 100.0100, L500.4100, L500.4050 #### [facility] [address] [place], [address] Neutrophils/100 WBC (Bld) 56.7 % Normal 47-70 [facility] Comment on above: Order Comment: Order Date: 07/27/24 Order Info: [id number] - CBCD Performed By: #### L 100.0100, L500.4100, L500.4050 #### [facility] [address] [place], [address] Nucleated RBC (Bld) [#/Vol] 0 10*3/uL Normal 0-5 [facility] Comment on above: Order Comment: Order Date: 07/27/24 Order Info: [id number] - CBCD Performed By: #### L 100.0100, L500.4100, L500.4050 #### [facility] [address] [place], [address] Platelet mean volume (Bld) [Entitic vol] 10.0 fL Normal 6.2-12.0 [facility] Comment on above: Order Comment: Order Date: 07/27/24 Order Info: [id number] - CBCD Performed By: #### L 100.0100, L500.4100, L500.4050 #### [facility] [address] [place], [address] Platelets (Bld) [#/Vol] 261 10*3/uL Normal 150-450 [facility] Comment on above: Order Comment: Order Date: 07/27/24 Order Info: [id number] - CBCD Performed By: #### L 100.0100, L500.4100, L500.4050 #### [facility] [address] [place], [address] RBC (Bld) [#/Vol] 4.18 10*6/uL Low 4.6-6.2 [facility] Comment on above: Order Comment: Order Date: 07/27/24 Order Info: [id number] - CBCD Performed By: #### L 100.0100, L500.4100, L500.4050 #### [facility] [address] [place], [address] RDW SD 44.3 fl High 35.1-43.9 [facility] Comment on above: Order Comment: Order Date: 07/27/24 Order Info: [id number] - CBCD Performed By: #### L 100.0100, L500.4100, L500.4050 #### [facility] [address] [place], [address] WBC (Bld) [#/Vol] 6.9 10*3/uL Normal 4.4-11.0 [facility] Comment on above: Order Comment: Order Date: 07/27/24 Order Info: [id number] - CBCD Performed By: #### L 100.0100, L500.4100, L500.4050 #### [facility] [address] [place], [address] Calculated very low density lipoprotein (VLDL) cholesterol measurementOrdered By: David Jacobo on 07-27-2024 Calculated very low density lipoprotein (VLDL) cholesterol measurement 47 mg/dL High 5-40 [facility] Carbon dioxide, total [Moles /volume] in Central venous bloodOrdered By: David Jacobo on 07-27-2024 CO2 [Moles/Vol] 20.6 mmol/L Low 21.0-32.0 [facility] Chloride assayOrdered By: Italo Jacobo on 07-27-2024 Chloride [Moles/Vol] 105 mmol/L 98-108 [facility] Comprehensive Metabolic Prof ilon 07-27-2024 Albumin [Mass/Vol] 4.5 g/dL Normal 3.4-4.8 [facility] Comment on above: Order Comment: Order Date: 07/27/24 Order Info: [id number] - CMP Order Info: [id number] - LIPID Performed By: #### L 100.0100, L500.4100, L500.4050 #### [facility] [address] [place], [address] Albumin/Globulin [Mass ratio] 1.8 {ratio} Normal 0.9-2.4 [facility] Comment on above: Order Comment: Order Date: 07/27/24 Order Info: [id number] - CMP Order Info: [id number] - LIPID Performed By: #### L 100.0100, L500.4100, L500.4050 #### [facility] [address] [place], [address] ALK PHOS 72 U/L Normal 40-129 [facility] Comment on above: Order Comment: Order Date: 07/27/24 Order Info: [id number] - CMP Order Info: [id number] - LIPID Performed By: #### L 100.0100, L500.4100, L500.4050 #### [facility] [address] [place], [address] ALT [Catalytic activity/Vol] 22 U/L Normal <=46 [facility] Comment on above: Order Comment: Order Date: 07/27/24 Order Info: [id number] - CMP Order Info: [id number] - LIPID Performed By: #### L 100.0100, L500.4100, L500.4050 #### [facility] [address] [place], [address] AST [Catalytic activity/Vol] 25 U/L Normal <=37 [facility] Comment on above: Order Comment: Order Date: 07/27/24 Order Info: [id number] - CMP Order Info: [id number] - LIPID Performed By: #### L 100.0100, L500.4100, L500.4050 #### [facility] [address] [place], [address] Bilirubin [Mass/Vol] 0.33 mg/dL Normal 0.00-1.30 [facility] Comment on above: Order Comment: Order Date: 07/27/24 Order Info: [id number] - CMP Order Info: [id number] - LIPID Performed By: #### L 100.0100, L500.4100, L500.4050 #### [facility] [address] [place], [address] BUN/CRE 17.8 RATIO Normal 10-20 [facility] Comment on above: Order Comment: Order Date: 07/27/24 Order Info: [id number] - CMP Order Info: [id number] - LIPID Performed By: #### L 100.0100, L500.4100, L500.4050 #### [facility] [address] [place], [address] Calcium [Mass/Vol] 9.0 mg/dL Normal 7.6-11.0 [facility] Comment on above: Order Comment: Order Date: 07/27/24 Order Info: [id number] - CMP Order Info: [id number] - LIPID Performed By: #### L 100.0100, L500.4100, L500.4050 #### [facility] [address] [place], [address] Chloride [Moles/Vol] 105 mmol/L Normal 98-108 [facility] Comment on above: Order Comment: Order Date: 07/27/24 Order Info: 07-1 - CMP Order Info: [id number] - LIPID Performed By: #### L 100.0100, L500.4100, L500.4050 #### [facility] [address] [place], [address] CO2 [Moles/Vol] 20.6 mmol/L Low 21.0-32.0 [facility] Comment on above: Order Comment: Order Date: 07/27/24 Order Info: 07 - CMP Order Info: [id number] - LIPID Performed By: #### L 100.0100, L500.4100, L500.4050 #### [facility] [address] [place], [address] Creatinine [Mass/Vol] 1.01 mg/dL Normal 0.70-1.20 [facility] Comment on above: Order Comment: Order Date: 07/27/24 Order Info: 0786 - CMP Order Info: [id number] - LIPID Performed By: #### L 100.0100, L500.4100, L500.4050 #### [facility] [address] [place], [address] GAP 11 Normal 5-15 [facility] Comment on above: Order Comment: Order Date: 07/27/24 Order Info: [id number] - CMP Order Info: [id number] - LIPID Performed By: #### L 100.0100, L500.4100, L500.4050 #### [facility] [address] [place], [address] GFR/1.73 sq M.predicted among non-blacks MDRD (S/P/Bld) [Vol rate/Area] 83 mL/min/{1.73_m2} Normal >60 [facility] Comment on above: Order Comment: Order Date: 07/27/24 Order Info: 0786- - CMP Order Info: [id number] - LIPID Result Comment: mL/m in/1.73m2 CKD-EPI Creatinine Equation (2020) Performed By: #### L 100.0100, L500.4100, L500.4050 #### [facility] [address] [place], [address] Globulin (S) [Mass/Vol] 2.6 g/dL Normal 2.2-4.2 [facility] Comment on above: Order Comment: Order Date: 07/27/24 Order Info: 0786 - CMP Order Info: [id number] - LIPID Performed By: #### L 100.0100, L500.4100, L500.4050 #### [facility] [address] [place], [address] Glucose [Mass/Vol] 88 mg/dL Normal 70-99 [facility] Comment on above: Order Comment: Order Date: 07/27/24 Order Info: 0786- - CMP Order Info: [id number] - LIPID Performed By: #### L 100.0100, L500.4100, L500.4050 #### [facility] [address] [place], [address] Potassium [Moles/Vol] 4.7 mmol/L Normal 3.3-5.1 [facility] Comment on above: Order Comment: Order Date: 07/27/24 Order Info: 0786- - CMP Order Info: [id number] - LIPID Performed By: #### L 100.0100, L500.4100, L500.4050 #### [facility] [address] [place], [address] Sodium [Moles/Vol] 136 mmol/L Normal 133-145 [facility] Comment on above: Order Comment: Order Date: 07/27/24 Order Info: [id number] - CMP Order Info: [id number] - LIPID Performed By: #### L 100.0100, L500.4100, L500.4050 #### [facility] [address] [place], [address] T PROT 7.1 g/dL Normal 5.9-8.4 [facility] Comment on above: Order Comment: Order Date: 07/27/24 Order Info: [id number] - CMP Order Info: [id number] - LIPID Performed By: #### L 100.0100, L500.4100, L500.4050 #### [facility] [address] [place], [address] Urea nitrogen [Mass/Vol] 18 mg/dL Normal 4-19 [facility] Comment on above: Order Comment: Order Date: 07/27/24 Order Info: [id number] - CMP Order Info: [id number] - LIPID Performed By: #### L 100.0100, L500.4100, L500.4050 #### [facility] [address] [place], [address] Eosinophil percentageOrdered By: David Jacobo on 07-27-2024 Eosinophils/100 WBC (Bld) 1.4 % 0-5 [facility] Erythrocyte distribution wid th ratioOrdered By: David Jacobo on 07-27-2024 Erythrocyte distribution width (RBC) [Ratio] 12.4 % 11.6-14.6 [facility] Erythrocyte distribution wid th standard deviationOrdered By: David Jacobo on 07-27-2024 Erythrocyte distribution width (RBC) [Ratio] 44.3 fl High 35.1-43.9 [facility] Glomerular filtration rate ( GFR) estimation/1.73 sq m using serum, plasma, or whole bOrdered By: David Jacboo on 07-27-2024 GFR/1.73 sq M.predicted among non-blacks MDRD (S/P/Bld) [Vol rate/Area] 83 mL/min/{1.73_m2} >60 [facility] Comment on above: mL/min/1.73m2 CKD-EP I Creatinine Equation (2020) Hematocrit Auto (Bld) [Volum e fraction]Ordered By: David Jacobo on 07-27-2024 Hematocrit (Bld) [Volume fraction] 40.4 % 40-54 [facility] Hemoglobin measurementOrdere d By: David Jacobo on 07-27-2024 Hemoglobin (Bld) [Mass/Vol] 13.5 g/dL 13.0-16.5 [facility] Immature granulocytes/100 WB C Auto (Bld)Ordered By: David Jacobo on 07-27-2024 Immature granulocytes/100 WBC (Bld) 0.300 % 0.0-0.9 [facility] Comment on above: IG% - Immature Granu locytes (promyelocytes, myelocytes and metamyelocytes) > 1% indicates that a LEFT SHIFT is Present. LDL calc ser/plasOrdered By: David Jacobo on 07-27-2024 Cholesterol in LDL [Mass/Vol] 23 mg/dL [facility] Comment on above: Bescrlzwck=443-750 m g/dL & Higher Fhnz=085 mg/dL or greater Laboratory - Chemistry and C hemistry - challengeOrdered By: David Jacobo on 07-27-2024 AST [Catalytic activity/Vol] 25 U/L <38 [facility] Lipid Profileon 07-27-2024 CHOL:HDL 3.08 Normal [facility] Comment on above: Order Comment: Order Date: 07/27/24 Order Info: 0786-1 - CMP Order Info: [id number] - LIPID Performed By: #### L 100.0100, L500.4100, L500.4050 #### [facility] [address] [place] [address], [address] Cholesterol [Mass/Vol] 104 mg/dL Normal <=200 [facility] Comment on above: Order Comment: Order Date: 07/27/24 Order Info: 0786-1 - CMP Order Info: [id number] - LIPID Result Comment: Chol esterol level, Desirable <200 mg/dL Borderline high cholesterol 200-239 mg/dL High cholesterol >=240 mg/dL Recommendations of the NCEP Adult Treatment Panel for the following risk-cutoff thresholds for the [place] population. Performed By: #### L 100.0100, L500.4100, L500.4050 #### [facility] [address] [place], [address] Cholesterol in HDL [Mass/Vol] 34 mg/dL Low [facility] Comment on above: Order Comment: Order Date: 07/27/24 Order Info: 0786-1 - CMP Order Info: [id number] - LIPID Result Comment: [place] onal Cholesterol Education Program (NCEP) guidelines: <40 mg/dL: Low HDL-cholesterol (major risk factor for CHD) >= 60 mg/dL: High HDL-cholesterol (negative risk factor for CHD) HDL-cholesterol is affected by a number of factors, e.g. smoking, exercise, hormones, sex and age. Performed By: #### L 100.0100, L500.4100, L500.4050 #### [facility] [address] [place], [address] Cholesterol in LDL [Mass/Vol] 23 mg/dL Normal [facility] Comment on above: Order Comment: Order Date: 07/27/24 Order Info: 0786-1 - CMP Order Info: [id number] - LIPID Result Comment: Bord fsdgei=237-557 mg/dL Higher Vbat=908 mg/dL or greater Performed By: #### L 100.0100, L500.4100, L500.4050 #### [facility] [address] [place], [address] Cholesterol in VLDL [Mass/Vol] 47 mg/dL High 5-40 [facility] Comment on above: Order Comment: Order Date: 07/27/24 Order Info: [id number] - CMP Order Info: [id number] - LIPID Performed By: #### L 100.0100, L500.4100, L500.4050 #### [facility] [address] [place], [address] Triglyceride [Mass/Vol] 236 mg/dL High [facility] Comment on above: Order Comment: Order Date: 07/27/24 Order Info: 0786-1 - CMP Order Info: [id number] - LIPID Result Comment: The drugs N-Acetylcysteine and Metamizole may falsely depress this assay. Normal range: <150 mg/dL Borderline High: 150-199 mg/dL High: 200-499 mg/dL Very High: >500 mg/dL Performed By: #### L 100.0100, L500.4100, L500.4050 #### [facility] [address] [place], [address] MCV (mean corpuscular volume ) determinationOrdered By: David Jacobo on 07-27-2024 MCV (RBC) [Entitic vol] 96.7 fL High 80-94 [facility] Mean corpuscular hemoglobin (MCH) determinationOrdered By: David Jacobo on 07-27-2024 MCH (RBC) [Entitic mass] 32.3 pg High 27.0-32.0 [facility] Mean corpuscular hemoglobin concentration (MCHC) determinationOrdered By: David Jacobo on 07-27-2024 MCHC (RBC) [Mass/Vol] 33.4 g/dL 32-36 [facility] Mean platelet volume determi nationOrdered By: David Jacobo on 07-27-2024 Platelet mean volume (Bld) [Entitic vol] 10.0 fL 6.2-12.0 [facility] Monocyte percentageOrdered B y: David Jacobo on 07-27-2024 Monocytes/100 WBC (Bld) 11.3 % High 0-10 [facility] Neutrophil percentageOrdered By: David Jacobo on 07-27-2024 Neutrophils/100 WBC (Bld) 56.7 % 47-70 [facility] Nucleated red blood cell per centageOrdered By: David Jacobo on 07-27-2024 Nucleated RBC/100 WBC (Bld) [Ratio] 0 % 0-5 [facility] PSA,Total- Diagnosticon 07-10 PSA, DIAGNOSTIC 0.68 ng/mL Normal 0.00-4.00 [facility] Comment on above: Order Comment: Order Date: 07/27/24 Order Info: 0786-1 - CMP Order Info: [id number] - LIPID Result Comment: This test was performed using the [employer] tPSA method. Measured values of a patient??sample can vary depending on the testing procedure used. PSA values determined on patient samples by different testing procedures cannot be used interchangeably. If there is a change in PSA assays while monitoring therapy, sequential testing should be performed to confirm baseline values. Performed By: #### L 501.9953 #### [facility] [address] [place], [address] Platelet countOrdered By: Italo Jacobo on 07-27-2024 Platelets (Bld) [#/Vol] 261 10*3/uL 150-450 [facility] Potassium measurement (mass/ volume)Ordered By: David Jacobo on 07-27-2024 Potassium (Unsp spec) [Mass/Vol] 4.7 mmol/L 3.3-5.1 [facility] RBC Auto (Bld) [#/Vol]Ordere d By: David Jacobo on 07-27-2024 RBC (Bld) [#/Vol] 4.18 10*6/uL Low 4.6-6.2 [facility] Screening total cholesterol/ high density lipoprotein (HDL) cholesterol ratioOrdered By: David Jacobo on 07-27-2024 Cholesterol.total/Cho lesterol in HDL [Mass ratio] 3.08 {ratio} [facility] Serum creatinine measurement (mass/volume)Ordered By: David Jacobo on 07-27-2024 Creatinine [Mass/Vol] 1.01 mg/dL 0.70-1.20 [facility] Serum globulin measurementOr dered By: David Jacobo on 07-27-2024 Globulin (S) [Mass/Vol] 2.6 g/dL 2.2-4.2 [facility] Serum glucose measurement (m ass/volume)Ordered By: David Jacobo on 07-27-2024 Glucose [Mass/Vol] 88 mg/dL 70-99 [facility] Serum or plasma alanine beck otransferase (ALT) measurementOrdered By: David Jacobo on 07-27-2024 ALT [Catalytic activity/Vol] 22 U/L <47 [facility] Serum or plasma albumin meron urement (mass/volume)Ordered By: David Jacobo on 07-27-2024 Albumin [Mass/Vol] 4.5 g/dL 3.4-4.8 [facility] Serum or plasma albumin/glob ulin mass ratioOrdered By: David Jacobo on 07-27-2024 Albumin/Globulin [Mass ratio] 1.8 {ratio} 0.9-2.4 [facility] Serum or plasma alkaline holden sphatase measurementOrdered By: David Jacobo on 07-27-2024 ALP [Catalytic activity/Vol] 72 U/L 40-129 [facility] Serum or plasma calcium meron urement (mass/volume)Ordered By: David Jacobo on 07-27-2024 Calcium [Mass/Vol] 9.0 mg/dL 7.6-11.0 [facility] Serum or plasma cholesterol in HDL measurement (mass/volume)Ordered By: David Jacobo on 07-27-2024 Cholesterol in HDL [Mass/Vol] 34 mg/dL Low >40 [facility] Comment on above: National Cholesterol Education Program (NCEP) guidelines:<40 mg/dL: Low HDL-cholesterol (major risk factor for CHD)>= 60 mg/dL: High HDL-cholesterol (negative risk factor for CHD)HDL-cholesterol is affected by a number of factors, e.g. smoking, exercise, hormones, sex and age. Serum or plasma cholesterol measurement (mass/volume)Ordered By: David Jacobo on 07-27-2024 Cholesterol [Mass/Vol] 104 mg/dL <201 [facility] Comment on above: Cholesterol level, D esirable <200 mg/dLBorderline high cholesterol 200-239 mg/dLHigh cholesterol >=240 mg/dLRecommendations of the NCEP Adult Treatment Panel for the following risk-cutoff thresholds for the [place] population. Serum or plasma urea nitroge n measurement (mass/volume)Ordered By: David Jacobo on 07-27-2024 Urea nitrogen [Mass/Vol] 18 mg/dL 4-19 [facility] Sodium levelOrdered By: David Jacobo on 07-27-2024 Sodium [Moles/Vol] 136 mmol/L 133-145 [facility] Total proteinOrdered By: Tammy Jacobo on 07-27-2024 Protein [Mass/Vol] 7.1 g/dL 5.9-8.4 [facility] Triglycerides measurementOrd ered By: David Jacobo on 07-27-2024 Triglyceride [Mass/Vol] 236 mg/dL High <199 [facility] Comment on above: The drugs N-Acetylcy steine and Metamizole may falsely depress this assay. Normal range: <150 mg/dLBorderline High: 150-199 mg/dLHigh: 200-499 mg/dLVery High: >500 mg/dL White blood cell (WBC) count Ordered By: David Jacobo on 07-27-2024 WBC (Bld) [#/Vol] 6.9 10*3/uL 4.4-11.0 [facility] CPK Total, Creatine Kinaseon 05-19-2024 CPK TOTAL 197 U/L Normal 39-308 [facility] Comment on above: Result Comment: Mode rate Hemolysis, Result may be falsely increased. Performed By: #### L 501.3620, L500.4100, L500.4050 #### [facility] [address] [place], [address] Comprehensive Metabolic Prof ilon 05-19-2024 Albumin [Mass/Vol] 3.7 g/dL Normal 3.2-5.0 [facility] Comment on above: Performed By: #### L 501.3620, L500.4100, L500.4050 #### [facility] [address] [place], [address] Albumin/Globulin [Mass ratio] 1.1 {ratio} Normal 0.9-2.4 [facility] Comment on above: Performed By: #### L 501.3620, L500.4100, L500.4050 #### [facility] [address] [place], [address] ALK P 69 U/L Normal 45-117 [facility] Comment on above: Performed By: #### L 501.3620, L500.4100, L500.4050 #### [facility] [address] [place], [address] ALT [Catalytic activity/Vol] 25 U/L Normal 16-61 [facility] Comment on above: Performed By: #### L 501.3620, L500.4100, L500.4050 #### [facility] [address] [place], [address] AST [Catalytic activity/Vol] 24 U/L Normal 15-37 [facility] Comment on above: Result Comment: Mode rate Hemolysis, Result may be falsely increased. Performed By: #### L 501.3620, L500.4100, L500.4050 #### [facility] [address] [place], [address] Bilirubin [Mass/Vol] 0.40 mg/dL Normal 0.20-1.00 [facility] Comment on above: Result Comment: For patients on eltrombopag therapy, use of Dimension [place] TBIL is not recommended. Performed By: #### L 501.3620, L500.4100, L500.4050 #### [facility] [address] [place], [address] BUN/CRE 20.6 RATIO High 10-20 [facility] Comment on above: Performed By: #### L 501.3620, L500.4100, L500.4050 #### [facility] [address] [place], [address] CA,Total 8.6 mg/dL Normal 8.5-10.1 [facility] Comment on above: Performed By: #### L 501.3620, L500.4100, L500.4050 #### [facility] [address] [place], [address] Chloride [Moles/Vol] 110 mmol/L High 98-107 [facility] Comment on above: Performed By: #### L 501.3620, L500.4100, L500.4050 #### [facility] [address] [place], [address] CO2 [Moles/Vol] 25.0 mmol/L Normal 21.0-32.0 [facility] Comment on above: Performed By: #### L 501.3620, L500.4100, L500.4050 #### [facility] [address] [place], [address] Creatinine [Mass/Vol] 1.07 mg/dL Normal 0.70-1.30 [facility] Comment on above: Result Comment: The validity of the calculated GFR GFRAA in patients over 70 years has not been determined. Clinical correlation is essential. Performed By: #### L 501.3620, L500.4100, L500.4050 #### [facility] [address] [place], [address] EST GFR - AA 90 mL/min Normal >60 [facility] Comment on above: Result Comment: Afri can Fijian GFR Calc Performed By: #### L 501.3620, L500.4100, L500.4050 #### [facility] [address] [place], [address] GAP 5 Normal 5-15 [facility] Comment on above: Performed By: #### L 501.3620, L500.4100, L500.4050 #### [facility] [address] [place], [address] GFR/1.73 sq M.predicted among non-blacks MDRD (S/P/Bld) [Vol rate/Area] 74 mL/min/{1.73_m2} Normal >60 [facility] Comment on above: Result Comment: Non- GFR Calc Performed By: #### L 501.3620, L500.4100, L500.4050 #### [facility] [address] [place], [address] Globulin (S) [Mass/Vol] 3.4 g/dL Normal 2.2-4.2 [facility] Comment on above: Performed By: #### L 501.3620, L500.4100, L500.4050 #### [facility] [address] [place], [address] Glucose [Mass/Vol] 98 mg/dL Normal 74-106 [facility] Comment on above: Performed By: #### L 501.3620, L500.4100, L500.4050 #### [facility] [address] [place], [address] Potassium [Moles/Vol] 5.0 mmol/L Normal 3.5-5.1 [facility] Comment on above: Result Comment: Mode rate Hemolysis, Result may be falsely increased. Performed By: #### L 501.3620, L500.4100, L500.4050 #### [facility] [address] [place], [address] Sodium [Moles/Vol] 140 mmol/L Normal 136-145 [facility] Comment on above: Performed By: #### L 501.3620, L500.4100, L500.4050 #### [facility] [address] [place], [address] T PROT 7.1 g/dL Normal 6.4-8.2 [facility] Comment on above: Performed By: #### L 501.3620, L500.4100, L500.4050 #### [facility] [address] [place], [address] Urea nitrogen [Mass/Vol] 22 mg/dL High 7-18 [facility] Comment on above: Performed By: #### L 501.3620, L500.4100, L500.4050 #### [facility] [address] [place], [address] Lipid Profileon 05-19-2024 Cholesterol [Mass/Vol] 189 mg/dL Normal 200 [facility] Comment on above: Result Comment: <200 mg/dL Desirable 200-240 mg/dL Borderline >240 mg/dL High Risk Performed By: #### L 501.3620, L500.4100, L500.4050 #### [facility] [address] [place], [address] Cholesterol in HDL [Mass/Vol] 35 mg/dL Low [facility] Comment on above: Result Comment: The drugs N-Acetylcysteine and Metamizole may falsely depress this assay. Reference Range HDL <40 mg/dL Low HDL Cholesterol HDL >or= 60 mg/dL High HDL Cholesterol Performed By: #### L 501.3620, L500.4100, L500.4050 #### [facility] [address] [place], [address] Cholesterol in LDL [Mass/Vol] 108 mg/dL Normal 0-130 [facility] Comment on above: Performed By: #### L 501.3620, L500.4100, L500.4050 #### [facility] [address] [place], [address] Cholesterol in VLDL [Mass/Vol] 46 mg/dL High 5-40 [facility] Comment on above: Performed By: #### L 501.3620, L500.4100, L500.4050 #### [facility] [address] [place], [address] Triglyceride [Mass/Vol] 230 mg/dL High [facility] Comment on above: Result Comment: The drugs N-Acetylcysteine and Metamizole may falsely depress this assay. Serum Triglycerides Reference Interval Normal <150 mg/dL Borderline high 150 - 199 mg/dL High 200 - 499 mg/dL Very High > or = 500 mg/dL Performed By: #### L 501.3620, L500.4100, L500.4050 #### [facility] [address] [place], [address] Cardiology Visit Reporton Cardiology Visit Report [facility] [address] [place] [address] OFFICE VISIT Date of Service: 05/09/24 MR#: [id number] Acct: [id number] Name: FUAD KERR Rep #: [id number] : 1960 Provider: Dr. Sav Abrams MD Age/Sex: 64/M Location: [facility] Status: Signed HPI HPI History of Present Illness Details: This gentleman with history of coronary artery disease has had drug-eluting stents placed to his mid RCA and mid right PDA in 2020. In 2023, he presented with an inferior STEMI after having stopped aspirin and clopidogrel for a surgical procedure. 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 Successful percutaneous intervention was performed with placement of a drug-eluting stent. Patient is scribes occasional chest discomfort which is different from his anginal pain. According to him, it gets better with exertion. No orthopnea. No shortness of breath. No PND. No ankle edema. Patient does describe generalized muscle aches and pains. According to him, he has arthritis and ascribes his symptoms to that. 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 Accompanied by: Is patient in pain?: Yes (back) Allergies isosorbide Adverse Reaction (Intermediate, Verified 09/20/23 13:59) Dizzy, lightheaded, short of breath lisinopril Adverse Reaction (Intermediate, Verified 09/20/23 13:59) dry persistent cough Medications ???Medication ???Instructions ???Recorded ???Confirmed ???Type clobetasol 0.05 % topical cream 1 applic topical DAILY PRN KNEE 08/14/23 05/09/24 History IRRITATION aspirin 81 mg tablet,delayed 81 mg PO DAILY #90 tabs 12/09/23 05/09/24 Rx release (Adult Aspirin Regimen) atorvastatin 10 mg tablet 10 mg PO QHS #90 tabs 12/09/23 05/09/24 Rx clopidogrel 75 mg tablet 75 mg PO DAILY #90 tabs 12/09/23 05/09/24 Rx telmisartan 80 mg tablet 80 mg PO DAILY #90 tabs 12/09/23 05/09/24 Rx acetaminophen 650 mg 1,300 mg PO BID PRN 05/09/24 05/09/24 History tablet,extended release (Tylenol Arthritis Pain) Ejection fraction %: 65 Have you fallen in the past year?: No PFSH Medical History Abnormal stress test Abscess, peritonsillar Acute ST elevation myocardial infarction (STEMI) ( 08/17/23) Angina pectoris Atherosclerotic heart disease of [place] coronary artery without angina pectoris Breast mass, right 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 disease Dyslipidemia Essential hypertension History of left heart catheterization (LHC) ( 12/29/21) HLD (hyperlipidemia) Myalgia Presence of stent in coronary artery ( 11/15/20) Psoriasis Psoriatic arthritis Smoker SOB (shortness of breath) STEMI (ST elevation myocardial infarction) Strep pharyngitis Tobacco abuse Surgical History History of coronary artery stent placement Presence of coronary angioplasty implant and graft ( 11/15/20) Presence of stent of CABG ( 08/17/23) Family History Mother Thyroid disorder Social History Smoking Status: Former smoker Tobacco: How many years used: 42 how long ago did patient quit smokin months alcohol intake: current details: occassional substance use type: does not use caffeine: Yes Type: coffee Number of servings: 1 ROS Const Const: Positive for fatigue and other (doesn't feel well per pt following medications. Takes all medications HS); Negative for weakness, headache(s) or weight gain ENT ENT: Negative for headache(s), dizziness, Nosebleed/epistaxis or balance problems Cardio Chest Pain: Yes (occasionally) Frequency: monthly (a couple of times every few weeks) Character: dull and other (burning) Palpitations: No Edema: None Muscle aches with walking: None Resp Respiratory: Negative for SOB with activity, SOB at rest or SOB orthopnea SOB lying down GI GI: Negative nausea, vomiting or heartburn Musc Musc: Positive for joint pain (arthritis); Negative for muscle aches/ myalgia, muscle weakness or balance problems Neuro Neuro: Negative for dizziness, lightheadedness, near syncope, syncope, headache(s) or weakness Endo Endo: Positive for fatigue Cardiology Exam Const Appearance: comfortable and no acute distress Nutritional Appearance: well nourished Neck Neck: no JVD Carotids: Negative bruit Chest Auscultation: Bilateral: Clear t (more content not included)... Normal [facility] PSA,Total - Annual Screenon 03-30-2024 PSA,TOT SCREEN 0.50 ng/mL Normal 0.00-4.00 [facility] Comment on above: Order Comment: Order Date: 03/30/24 Order Info: [id number] - PSA Result Comment: This test was performed using the TPSA assay method for the [employer] chemistry system. Values obtained with different assay methods cannot be used interchangably. When changing PSA assays in the course of monitoring a patient, additional sequential testing should be carried out to confirm baseline values. Performed By: #### L 501.9910 #### [facility] [address] [place], [address] [facility] 12-13-2023 [facility] Telephone ([facility]) FUAD KERR ([id number]) 1960 M Date Time Provider Department 12/13/23 POPEYE SAHA [facility] During your visit today, we recorded the following information about you: Popeye Saha APRN.CNP 12/13/2023 10:08 AM Signed You tested positive for COVID-19. You can go back to your normal activities when, for at least 24 hours, both are true: - Your symptoms are getting better overall, and - You have not had a fever (and are not using fever-reducing medication). When you go back to your normal activities, take added precaution over the next 5 days, such as taking additional steps for tower cleaner air, hygiene, masks, physical distancing, and/or testing when you will be around other people indoors. You may be eligible for antiviral treatment. Please PCP office discuss your eligibility. Please contact us if your symptoms are worsening or not improving. Please advise patient Prema Auguste RN 12/13/2023 11:31 AM Signed Pt returned call and given provider's message below with verbalized understanding. Patient agreeable. Allergies As of Date: 12/13/2023 (No Known Allergies) Date Reviewed: 12/12/2023 Reviewed by: Christine Claire MA - Fully Assessed Reason for Visit: Results [95] Prescriptions as of 12/13/2023 - telmisartan (MICARDIS) 80 mg tablet - atorvastatin (LIPITOR) 10 mg tablet Take 10 mg by mouth daily at bedtime. - clopidogrel (PLAVIX) 75 mg tablet Take 1 tablet by mouth every afternoon. - aspirin, enteric coated (ASPIRIN, ENTERIC COATED) 81 mg EC tablet Take 1 tablet by mouth every afternoon. - fluticasone (FLONASE) 50 mcg/actuation nasal spray Use 2 Sprays in each nostril once daily. Rinse mouth after use. - triamterene-hydrochlorothiazi de 37.5-25 mg per capsule Take 1 capsule by mouth once daily. Problem List As Of Date: 12/13/2023 (None) Encounter Status:Closed by Prema AUGUSTE on 12/13/23 Normal [facility] CNOVon 12-12-2023 CNOV Office Visit ([facility] ) FUAD KERR ([id number]) 1960 Date Time Provider Department 12/12/23 9:45 AM CHRISTINE ILANA [facility] During your visit today, we recorded the following information about you: Temperature Pulse Respiration Blood pressure 99 degrees 75/minute 20/minute 120/68 Weight 87.5 kg Ilana Sanabria APRN.CNP 12/12/2023 9:59 AM Signed Subjective HPI Fuad presents with three day hx of of sore throat, cough and fever. He states he feels better today and no fever. He and his just returned from [place]. He is eating and drinking well. Denies nausea, vomiting or loose stool. His also has similar symptoms. He is using Tylenol as needed. No past medical history on file. No past surgical history on file. ALLERGIES Patient has no known allergies. MEDICATIONS telmisartan (MICARDIS) 80 mg tablet atorvastatin (LIPITOR) 10 mg tablet Take 10 mg by mouth daily at bedtime. clopidogrel (PLAVIX) 75 mg tablet Take 1 tablet by mouth every afternoon. aspirin, enteric coated (ASPIRIN, ENTERIC COATED) 81 mg EC tablet Take 1 tablet by mouth every afternoon. fluticasone (FLONASE) 50 mcg/actuation nasal spray Use 2 Sprays in each nostril once daily. Rinse mouth after use. triamterene-hydrochlorothiazi de 37.5-25 mg per capsule Take 1 capsule by mouth once daily. (Patient not taking: Reported on 12/12/2023) No family history on file. Social History Tobacco Use Smoking status: Former Current packs/day: 1.50 Average packs/day: 1.5 packs/day for 23.0 years (34.5 ttl pk-yrs) Types: Cigarettes Passive exposure: Past Smokeless tobacco: Never Substance Use Topics Alcohol use: Yes Comment: weekly 5 beer average Drug use: No Review of Systems Constitutional: Positive for fever. HENT: Positive for congestion and sore throat. Respiratory: Positive for cough. All other systems reviewed and are negative. Objective Physical Exam Vitals and nursing note reviewed. Constitutional: Appearance: Normal appearance. HENT: Head: Normocephalic and atraumatic. Right Ear: Tympanic membrane, ear canal and external ear normal. Left Ear: Tympanic membrane, ear canal and external ear normal. Nose: Congestion present. Mouth/Throat: Mouth: Mucous membranes are moist. Pharynx: Oropharynx is clear. No oropharyngeal exudate or posterior oropharyngeal erythema. Eyes: Extraocular Movements: Extraocular movements intact. Conjunctiva/sclera: Conjunctivae normal. Pupils: Pupils are equal, round, and reactive to light. Cardiovascular: Rate and Rhythm: Normal rate and regular rhythm. Pulses: Normal pulses. Heart sounds: Normal heart sounds. Pulmonary: Effort: Pulmonary effort is normal. No respiratory distress. Breath sounds: Normal breath sounds. No stridor. No wheezing, rhonchi or rales. Chest: Chest wall: No tenderness. Abdominal: General: Abdomen is flat. Bowel sounds are normal. Palpations: Abdomen is soft. Musculoskeletal: General: Normal range of motion. Cervical back: Normal range of motion and neck supple. Lymphadenopathy: Cervical: No cervical adenopathy. Skin: General: Skin is warm. Capillary Refill: Capillary refill takes less than 2 seconds. Neurological: General: No focal deficit present. Mental Status: He is alert and oriented to person, place, and time. Psychiatric: Mood and Affect: Mood normal. ASSESSMENT/PLAN: 1. Acute cough - ICD9: 786.2, ICD10: R05.1 (primary diagnosis) Increase fluids Vaporizer at bedside or hot steamy shower Tea with honey 2. Sorethroat - ICD9: 462, ICD10: J02.9 - Discussed supportive care treatment with fluids, rest and analgesia. - The patient should follow up in 3-5 days if symptoms persist or worsen Ilana Sanabria APRN.FURNACE RELINER Allergies As of Date: 12/12/2023 (No Known Allergies) Date Reviewed: 12/12/2023 Reviewed by: Christine Claire MA - Fully Assessed Reason for Visit: Cough [28] Cmt: Drainage, sore throat, fever, ribs sore from coughing x 3 days Primary Visit Diagnosis:Acute cough [R05.1] Other Visit Diagnosis:Sorethroat [J02.9] Order(s):fluticasone (FLONASE) 50 mcg/actuation nasal sprayUse 2 Sprays in each nostril once daily. Rinse mouth after use.Disp: 9.9 mLRfl: 0 COVID AND INFLUENZA A/B AND RSV PCR, ROUTINE [SQCVFLRS] Order #: [id number] FUTURE COVID AND INFLUENZA A/B AND RSV PCR, ROUTINE [SQCVFLRS] Order #: [id number]. #:[id number] Prescriptions as of 12/12/2023 - telmisartan (MICARDIS) 80 mg tablet - atorvastatin (LIPITOR) 10 mg tablet Take 10 mg by mouth daily at bedtime. - clopidogrel (PLAVIX) 75 mg tablet Take 1 tablet by mouth every afternoon. - aspirin, enteric coated (ASPIRIN, ENTERIC COATED) 81 mg EC tablet Take 1 tablet by mouth every afternoon. - fluticasone (FLONASE) 50 mcg/actuation nasal spray Use 2 Sprays in each nostril once daily. Rinse mouth after use. - (more content not included)... Normal [facility] COVID AND INFLUENZA A/B AND RSV PCR, ROUTINEon 12-12-2023 SARS-CoV-2 (COVID-19) RNA PASQUALE+probe Ql (Unsp spec) SARS-COV-2 (AGENT OF COVID-19) RNA: Detected INFLUENZA A RNA: Not detected INFLUENZA B RNA: Not detected RESPIRATORY SYNCYTIAL VIRUS (RSV) RNA: Not detected Abnormal [facility] Comment on above: Performed By: #### C VFLRS #### [facility] CLIA [id number] [address] [place] [address] [place] Basophil percentageOrdered B y: Dorene Rodriguez on 08-19-2023 Chloride [Moles/Vol] 107 mmol/L 98-107 [facility] Glucose [Mass/Vol] 106 mg/dL 74-106 [facility] Comment on above: Fasting Glucose resu lt from 100 to 125 mg/dL suggests IMPAIRED HOMEOSTASIS per A.D.A. criteria. Hemoglobin (Bld) [Mass/Vol] 13.0 g/dL 13.0-16.5 [facility] Potassium [Moles/Vol] 4.2 mmol/L 3.5-5.1 [facility] Sodium [Moles/Vol] 138 mmol/L 136-145 [facility] WBC (Bld) [#/Vol] 10.2 10*3/uL 4.4-11.0 [facility] Determination of erythrocyte mean corpuscular volume (MCV)Ordered By: Dorene Rodriguez on 08-19-2023 MCV (RBC) [Entitic vol] 98.0 fL 80-94 [facility] Erythrocyte distribution wid th ratioOrdered By: Dorene Rodriguez on 08-19-2023 Erythrocyte distribution width (RBC) [Ratio] 11.9 % 11.6-14.6 [facility] Erythrocyte distribution wid th standard deviationOrdered By: Dorene Rodriguez on 08-19-2023 Erythrocyte distribution width (RBC) [Entitic vol] 43.0 fL 35.1-43.9 [facility] Hematocrit Auto (Bld) [Volum e fraction]Ordered By: Dorene Rodriguez on 08-19-2023 Hematocrit (Bld) [Volume fraction] 40.2 % 40-54 [facility] - Chemistry and C hemistry - challengeOrdered By: Dorene Rodriguez on 08-19-2023 CO2 [Moles/Vol] 27.0 mmol/L 21.0-32.0 [facility] Urea nitrogen/Creatinine [Mass ratio] 16.0 mg/mg 10- [facility] - Hematology and Cell countsOrdered By: Dorene Rodriguez on 08-19-2023 MCH (RBC) [Entitic mass] 31.7 pg 27.0-32.0 [facility] MCHC (RBC) [Mass/Vol] 32.3 g/dL 32- [facility] Platelet mean volume (Bld) [Entitic vol] 9.1 fL 6.2-12.0 [facility] Platelets (Bld) [#/Vol] 324 10*3/uL 150-450 [facility] No Panel InformationOrdered By: Dorene Rodriguez on 08-19-2023 Estimated Creatinine Clearance Calc 84.74 ml/min [facility] Estimated GFR (MDRD) Amer 97 mL/min >60 [facility] Comment on above: GFR Calc Estimated GFR (MDRD) Non-Af Amer 80 mL/min >60 [facility] Comment on above: Non- GFR Calc RBC Auto (Bld) [#/Vol]Ordere d By: Dorene Rodriguez on 08-19-2023 RBC (Bld) [#/Vol] 4.10 10*6/uL 4.6-6.2 [facility] Serum or plasma calcium meron urement (mass/volume)Ordered By: Dorene Rodriguez on 08-19-2023 Calcium [Mass/Vol] 8.6 mg/dL 8.5-10.1 [facility] Serum or plasma creatinine m easurement (mass/volume)Ordered By: Dorene Rodriguez on 08-19-2023 Creatinine [Mass/Vol] 1.00 mg/dL 0.70-1.30 [facility] Comment on above: The validity of the calculated GFR & GFRAA in patients over 70 years has not been determined. Clinical correlation is essential. Serum or plasma urea nitroge n measurement (mass/volume)Ordered By: Dorene Rodriguez on 08-19-2023 Urea nitrogen [Mass/Vol] 16 mg/dL 7-18 [facility] Thin prep Papanicolaou smear with manual screeningOrdered By: Dorene Rodriguez on 08-19-2023 Thin prep Papanicolaou smear with manual screening 4 5-15 [facility] Basophil percentageOrdered B y: Sav Abrams on 08-18-2023 Bilirubin [Mass/Vol] 0.50 mg/dL 0.20-1.00 [facility] Comment on above: For patients on eltr ombopag therapy, use of Dimension [place] TBIL is not recommended. Cholesterol [Mass/Vol] 82 mg/dL <200 [facility] Comment on above: <200 mg/dL Desirable 200-240 mg/dL Borderline >240 mg/dL High Risk Protein [Mass/Vol] 6.0 g/dL 6.4-8.2 [facility] Triglyceride [Mass/Vol] 227 mg/dL <199 [facility] Comment on above: The drugs N-Acetylcy steine and Metamizole may falsely depress this assay.Serum Triglycerides Reference Interval Normal <150 mg/dL Borderline high 150 - 199 mg/dL High 200 - 499 mg/dL Very High > or = 500 mg/dL Laboratory - Chemistry and C hemistry - challengeOrdered By: Sav Abrams on 08-18-2023 Albumin/Globulin [Mass ratio] 1.1 {ratio} 0.9-2.4 [facility] ALP [Catalytic activity/Vol] 55 U/L 45-117 [facility] ALT [Catalytic activity/Vol] 42 U/L 16-61 [facility] Cholesterol in HDL [Mass/Vol] 27 mg/dL >40 [facility] Comment on above: The drugs N-Acetylcy steine and Metamizole may falsely depress this assay. Reference Range HDL <40 mg/dL Low HDL Cholesterol HDL >or= 60 mg/dL High HDL Cholesterol Cholesterol in LDL [Mass/Vol] 10 mg/dL 0-130 [facility] Globulin (S) [Mass/Vol] 2.9 g/dL 2.2-4.2 [facility] No Panel InformationOrdered By: Sav Abrams on 08-18-2023 VLDL Cholesterol 45 mg/dL 5-40 [facility] Thin prep Papanicolaou smear with manual screeningOrdered By: Sav Abrams on 08-18-2023 Thin prep Papanicolaou smear with manual screening 3.1 g/dL 3.2-5.0 [facility] Thin prep Papanicolaou smear with manual screening 132 U/L 15-37 [facility] Whole blood hemoglobin A1c/t otal hemoglobin ratio (mass fraction)Ordered By: Dorene Rodriguez on 08-18-2023 HbA1c (Bld) [Mass fraction] 5.7 % 3.8-5.6 [facility] Comment on above: Normal < 5.7 % Predi abetic 5.7 - 6.4 % Diabetic >or= 6.5 % Please note range changes. Absolute lymphocyte countOrd ered By: David Myers on 08-17-2023 Lymphocytes Auto (Unsp spec) [#/Vol] 2.66 10*3/uL 0.83-4.51 [facility] Activated partial thrombopla stin time (aPTT) in platelet poor plasma by coagulation aOrdered By: David Myers on 08-17-2023 aPTT Coag (PPP) [Time] 23.6 s 24.1-36.2 [facility] Automated lymphocyte count a s percentage of total leukocytesOrdered By: David Myers on 08-17-2023 Lymphocytes/100 WBC Auto (Unsp spec) 21.9 % 19-41 [facility] Basophil percentageOrdered B y: David Myers on 08-17-2023 Basophils/100 WBC (Bld) 0.7 % 0-1 [facility] Chloride [Moles/Vol] 105 mmol/L 98-107 [facility] Eosinophils/100 WBC (Bld) 0.6 % 0-5 [facility] Glucose [Mass/Vol] 140 mg/dL 74-106 [facility] Comment on above: Fasting Glucose resu lt greater than or equal to 126 mg/dL suggests DIABETES MELLITUS per A.D.A. criteria. Hemoglobin (Bld) [Mass/Vol] 13.6 g/dL 13.0-16.5 [facility] Monocytes/100 WBC (Bld) 8.7 % 0-10 [facility] Neutrophils (Bld) [#/Vol] 8.0 10*3/uL 2.0-7.7 [facility] Neutrophils/100 WBC (Bld) 66.3 % 47-70 [facility] Potassium [Moles/Vol] 4.4 mmol/L 3.5-5.1 [facility] Sodium [Moles/Vol] 137 mmol/L 136-145 [facility] WBC (Bld) [#/Vol] 12.1 10*3/uL 4.4-11.0 [facility] Determination of erythrocyte mean corpuscular volume (MCV)Ordered By: David Myers on 08-17-2023 MCV (RBC) [Entitic vol] 95.2 fL 80-94 [facility] Erythrocyte distribution wid th ratioOrdered By: David Myers on 08-17-2023 Erythrocyte distribution width (RBC) [Ratio] 11.7 % 11.6-14.6 [facility] Erythrocyte distribution wid th standard deviationOrdered By: David Myers on 08-17-2023 Erythrocyte distribution width (RBC) [Entitic vol] 40.7 fL 35.1-43.9 [facility] Hematocrit Auto (Bld) [Volum e fraction]Ordered By: David Myers on 08-17-2023 Hematocrit (Bld) [Volume fraction] 41.4 % 40-54 [facility] Immature granulocytes/100 WB C Auto (Bld)Ordered By: David Myers on 08-17-2023 Immature granulocytes/100 WBC (Bld) 1.800 % 0.0-0.9 [facility] Comment on above: IG% - Immature Granu locytes (promyelocytes, myelocytes and metamyelocytes) > 1% indicates that a LEFT SHIFT is Present. Laboratory - Chemistry and C hemistry - challengeOrdered By: David Myers on 08-17-2023 CO2 [Moles/Vol] 22.0 mmol/L 21.0-32.0 [facility] Urea nitrogen/Creatinine [Mass ratio] 16.6 mg/mg 10-20 [facility] Laboratory - CoagulationOrde red By: David Myers on 08-17-2023 INR Coag (Bld) [Relative time] 1.1 {INR} [facility] PT Coag (PPP) [Time] 13.9 s 11.7-14.9 [facility] Laboratory - Hematology and Cell countsOrdered By: David Myers on 08-17-2023 MCH (RBC) [Entitic mass] 31.3 pg 27.0-32.0 [facility] MCHC (RBC) [Mass/Vol] 32.9 g/dL 32-36 [facility] Nucleated RBC/100 WBC (Bld) [Ratio] 0 % 0-5 [facility] Platelet mean volume (Bld) [Entitic vol] 9.1 fL 6.2-12.0 [facility] Platelets (Bld) [#/Vol] 415 10*3/uL 150-450 [facility] No Panel InformationOrdered By: Dorene Rodriguez on 08-17-2023 Activated Clotting Time 250 sec 74-137 [facility] No Panel InformationOrdered By: David Myers on 08-17-2023 Estimated Creatinine Clearance Calc 46.80 ml/min [facility] Estimated GFR (MDRD) Amer 49 mL/min >60 [facility] Comment on above: GFR Calc Estimated GFR (MDRD) Non-Af Amer 40 mL/min >60 [facility] Comment on above: Non- GFR Calc Troponin I High Sensitivity 100 pg/mL 3.0-78.0 [facility] Comment on above: Please Note: New Helen t Units and Gender Specific Reference Ranges. For more information see Policy Stat Procedure [place] High Sensitivity Troponin (TNIH) and attachments. RBC Auto (Bld) [#/Vol]Ordere d By: David Myers on 08-17-2023 RBC (Bld) [#/Vol] 4.35 10*6/uL 4.6-6.2 [facility] Serum or plasma calcium meron urement (mass/volume)Ordered By: David Myers on 08-17-2023 Calcium [Mass/Vol] 9.3 mg/dL 8.5-10.1 [facility] Serum or plasma creatinine m easurement (mass/volume)Ordered By: David Myers on 08-17-2023 Creatinine [Mass/Vol] 1.81 mg/dL 0.70-1.30 [facility] Comment on above: The validity of the calculated GFR & GFRAA in patients over 70 years has not been determined. Clinical correlation is essential. Serum or plasma urea nitroge n measurement (mass/volume)Ordered By: David Myers on 08-17-2023 Urea nitrogen [Mass/Vol] 30 mg/dL 7-18 [facility] Thin prep Papanicolaou smear with manual screeningOrdered By: David Myers on 08-17-2023 Thin prep Papanicolaou smear with manual screening 10 5-15 [facility] Absolute lymphocyte countOrd ered By: Eleno Quijano on 08-15-2023 Lymphocytes Auto (Unsp spec) [#/Vol] 0.99 10*3/uL 0.83-4.51 [facility] Automated lymphocyte count a s percentage of total leukocytesOrdered By: Eleno Quijano on 08-15-2023 Lymphocytes/100 WBC Auto (Unsp spec) 8.0 % 19-41 [facility] Basophil percentageOrdered B y: Eleno Quijano on 08-15-2023 Basophil percentage 2.6 mg/dL 2.5-4.9 [facility] Basophils/100 WBC (Bld) 0.1 % 0-1 [facility] Chloride [Moles/Vol] 107 mmol/L 98-107 [facility] Eosinophils/100 WBC (Bld) 0.0 % 0-5 [facility] Glucose [Mass/Vol] 207 mg/dL 74-106 [facility] Comment on above: Glucose result great er than or equal to 200 mg/dLsuggests DIABETES MELLITUS per A.D.A. criteria. Hemoglobin (Bld) [Mass/Vol] 13.6 g/dL 13.0-16.5 [facility] Monocytes/100 WBC (Bld) 2.9 % 0-10 [facility] Neutrophils (Bld) [#/Vol] 11.0 10*3/uL 2.0-7.7 [facility] Neutrophils/100 WBC (Bld) 88.4 % 47-70 [facility] Potassium [Moles/Vol] 4.2 mmol/L 3.5-5.1 [facility] Sodium [Moles/Vol] 137 mmol/L 136-145 [facility] WBC (Bld) [#/Vol] 12.4 10*3/uL 4[facility]4-11.[facility] Determination of erythrocyte mean corpuscular volume (MCV)Ordered By: Eleno Quijano on 08-15-2023 MCV (RBC) [Entitic vol] 96.2 fL 80-94 [facility] Erythrocyte distribution wid th ratioOrdered By: Eleno Quijano on 08-15-2023 Erythrocyte distribution width (RBC) [Ratio] 11.8 % 11.6-14.6 [facility] Erythrocyte distribution wid th standard deviationOrdered By: Eleno Quijano on 08-15-2023 Erythrocyte distribution width (RBC) [Entitic vol] 41.2 fL 35.1-43.9 [facility] Hematocrit Auto (Bld) [Volum e fraction]Ordered By: Eleno Quijano on 08-15-2023 Hematocrit (Bld) [Volume fraction] 40.7 % 40-54 [facility] Immature granulocytes/100 WB C Auto (Bld)Ordered By: Eleno Quijano on 08-15-2023 Immature granulocytes/100 WBC (Bld) 0.600 % 0.0-0.9 [facility] Comment on above: IG% - Immature Granu locytes (promyelocytes, myelocytes and metamyelocytes) > 1% indicates that a LEFT SHIFT is Present. Laboratory - Chemistry and C hemistry - challengeOrdered By: Eleno Quijano on 08-15-2023 CO2 [Moles/Vol] 24.0 mmol/L 21.0-32.0 [facility] Magnesium [Mass/Vol] 2.3 mg/dL 1.6-2.6 [facility] Urea nitrogen/Creatinine [Mass ratio] 17.6 mg/mg 10-20 [facility] Laboratory - Hematology and Cell countsOrdered By: Eleno Quijano on 08-15-2023 MCH (RBC) [Entitic mass] 32.2 pg 27.0-32.0 [facility] MCHC (RBC) [Mass/Vol] 33.4 g/dL 32-36 [facility] Nucleated RBC/100 WBC (Bld) [Ratio] 0 % 0-5 [facility] Platelet mean volume (Bld) [Entitic vol] 9.6 fL 6.2-12.0 [facility] Platelets (Bld) [#/Vol] 309 10*3/uL 150-450 [facility] No Panel InformationOrdered By: Eleno Quijano on 08-15-2023 Estimated Creatinine Clearance Calc 99.42 ml/min [facility] Estimated GFR (MDRD) Amer 116 mL/min >60 [facility] Comment on above: GFR Calc Estimated GFR (MDRD) Non-Af Amer 96 mL/min >60 [facility] Comment on above: Non- GFR Calc RBC Auto (Bld) [#/Vol]Ordere d By: Eleno Quijano on 08-15-2023 RBC (Bld) [#/Vol] 4.23 10*6/uL 4.6-6.2 [facility] Serum or plasma calcium meron urement (mass/volume)Ordered By: Eleno Quijano on 08-15-2023 Calcium [Mass/Vol] 8.9 mg/dL 8.5-10.1 [facility] Serum or plasma creatinine m easurement (mass/volume)Ordered By: Eleno Quijano on 08-15-2023 Creatinine [Mass/Vol] 0.85 mg/dL 0.70-1.30 [facility] Comment on above: The validity of the calculated GFR & GFRAA in patients over 70 years has not been determined. Clinical correlation is essential. Serum or plasma urea nitroge n measurement (mass/volume)Ordered By: Eleno Quijano on 08-15-2023 Urea nitrogen [Mass/Vol] 15 mg/dL 7-18 [facility] Thin prep Papanicolaou smear with manual screeningOrdered By: Eleno Quijano on 08-15-2023 Thin prep Papanicolaou smear with manual screening 6 5-15 [facility] Absolute lymphocyte countOrd ered By: Nydia Rivers on 08-14-2023 Lymphocytes Auto (Unsp spec) [#/Vol] 0.90 10*3/uL 0.83-4.51 [facility] Automated lymphocyte count a s percentage of total leukocytesOrdered By: Nydia Rivers on 08-14-2023 Lymphocytes/100 WBC Auto (Unsp spec) 5.8 % 19-41 [facility] Bacteria identified Cx Nom ( Wound)Ordered By: Cisco Lincoln on 08-14-2023 Wound Culture Actinomyces naeslundii [facility] Basophil percentageOrdered B y: Nydia Rivers on 08-14-2023 Basophils/100 WBC (Bld) 0.1 % 0-1 [facility] Chloride [Moles/Vol] 105 mmol/L 98-107 [facility] Eosinophils/100 WBC (Bld) 0.0 % 0-5 [facility] Glucose [Mass/Vol] 142 mg/dL 74-106 [facility] Comment on above: Fasting Glucose resu lt greater than or equal to 126 mg/dL suggests DIABETES MELLITUS per A.D.A. criteria. Hemoglobin (Bld) [Mass/Vol] 14.0 g/dL 13.0-16.5 [facility] Monocytes/100 WBC (Bld) 4.0 % 0-10 [facility] Neutrophils (Bld) [#/Vol] 13.9 10*3/uL 2.0-7.7 [facility] Neutrophils/100 WBC (Bld) 89.7 % 47-70 [facility] Potassium [Moles/Vol] 4.5 mmol/L 3.5-5.1 [facility] Sodium [Moles/Vol] 136 mmol/L 136-145 [facility] WBC (Bld) [#/Vol] 15.5 10*3/uL 4.4-11.0 [facility] Determination of erythrocyte mean corpuscular volume (MCV)Ordered By: Nydia Rivers on 08-14-2023 MCV (RBC) [Entitic vol] 95.6 fL 80-94 [facility] Erythrocyte distribution wid th ratioOrdered By: Nydia Rivers on 08-14-2023 Erythrocyte distribution width (RBC) [Ratio] 11.8 % 11.6-14.6 [facility] Erythrocyte distribution wid th standard deviationOrdered By: Nydia Rivers on 08-14-2023 Erythrocyte distribution width (RBC) [Entitic vol] 41.2 fL 35.1-43.9 [facility] Gram stain for investigation of transfusion reactionOrdered By: Cisco Lincoln on 08-14-2023 Microscopic observation Gram stain Nom (Unsp spec) [facility] Hematocrit Auto (Bld) [Volum e fraction]Ordered By: Nydia Rivers on 08-14-2023 Hematocrit (Bld) [Volume fraction] 41.7 % 40-54 [facility] Immature granulocytes/100 WB C Auto (Bld)Ordered By: Nydia Rivers on 08-14-2023 Immature granulocytes/100 WBC (Bld) 0.400 % 0.0-0.9 [facility] Comment on above: IG% - Immature Granu locytes (promyelocytes, myelocytes and metamyelocytes) > 1% indicates that a LEFT SHIFT is Present. Laboratory - Chemistry and C hemistry - challengeOrdered By: Nydia Rivers on 08-14-2023 CO2 [Moles/Vol] 25.0 mmol/L 21.0-32.0 [facility] Urea nitrogen/Creatinine [Mass ratio] 18.7 mg/mg 10-20 [facility] Laboratory - Hematology and Cell countsOrdered By: Nydia Rivers on 08-14-2023 MCH (RBC) [Entitic mass] 32.1 pg 27.0-32.0 [facility] MCHC (RBC) [Mass/Vol] 33.6 g/dL 32-36 [facility] Nucleated RBC/100 WBC (Bld) [Ratio] 0 % 0-5 [facility] Platelet mean volume (Bld) [Entitic vol] 9.2 fL 6.2-12.0 [facility] Platelets (Bld) [#/Vol] 297 10*3/uL 150-450 [facility] No Panel InformationOrdered By: Nydia Rivers on 08-14-2023 Estimated Creatinine Clearance Calc 88.43 ml/min [facility] Estimated GFR (MDRD) Amer 101 mL/min >60 [facility] Comment on above: GFR Calc Estimated GFR (MDRD) Non-Af Amer 84 mL/min >60 [facility] Comment on above: Non- GFR Calc RBC Auto (Bld) [#/Vol]Ordere d By: Nydia Rivers on 08-14-2023 RBC (Bld) [#/Vol] 4.36 10*6/uL 4.6-6.2 [facility] Serum or plasma calcium meron urement (mass/volume)Ordered By: Nydia Rivesr on 08-14-2023 Calcium [Mass/Vol] 9.3 mg/dL 8.5-10.1 [facility] Serum or plasma creatinine m easurement (mass/volume)Ordered By: Nydia Rivers on 08-14-2023 Creatinine [Mass/Vol] 0.96 mg/dL 0.70-1.30 [facility] Comment on above: The validity of the calculated GFR & GFRAA in patients over 70 years has not been determined. Clinical correlation is essential. Serum or plasma urea nitroge n measurement (mass/volume)Ordered By: Nydia Rivers on 08-14-2023 Urea nitrogen [Mass/Vol] 18 mg/dL 7-18 [facility] Streptococcus pyogenes rRNA detection in throat by DNA probeOrdered By: Nydia Rivers on 08-14-2023 S. pyogenes rRNA Probe Ql (Throat) [facility] Thin prep Papanicolaou smear with manual screeningOrdered By: Nydia Rivers on 08-14-2023 Thin prep Papanicolaou smear with manual screening 6 5-15 [facility] Basophil percentageOrdered B y: Tanner Elkin on 06-25-2023 Bilirubin [Mass/Vol] 0.50 mg/dL 0.20-1.00 [facility] Comment on above: For patients on eltr ombopag therapy, use of Dimension [place] TBIL is not recommended. Cholesterol [Mass/Vol] 114 mg/dL <200 [facility] Comment on above: <200 mg/dL Desirable 200-240 mg/dL Borderline >240 mg/dL High Risk Protein [Mass/Vol] 7.2 g/dL 6.4-8.2 [facility] Triglyceride [Mass/Vol] 180 mg/dL <199 [facility] Comment on above: The drugs N-Acetylcy steine and Metamizole may falsely depress this assay.Serum Triglycerides Reference Interval Normal <150 mg/dL Borderline high 150 - 199 mg/dL High 200 - 499 mg/dL Very High > or = 500 mg/dL Direct bilirubinOrdered By: Tanner Granger on 06-25-2023 Bilirubin.direct [Mass/Vol] 0.12 mg/dL 0.00-0.30 [facility] Laboratory - Chemistry and C hemistry - challengeOrdered By: Tanner Granger on 06-25-2023 ALP [Catalytic activity/Vol] 69 U/L 45-117 [facility] ALT [Catalytic activity/Vol] 33 U/L 16-61 [facility] Cholesterol in HDL [Mass/Vol] 37 mg/dL >40 [facility] Comment on above: The drugs N-Acetylcy steine and Metamizole may falsely depress this assay. Reference Range HDL <40 mg/dL Low HDL Cholesterol HDL >or= 60 mg/dL High HDL Cholesterol Cholesterol in LDL [Mass/Vol] 41 mg/dL 0-130 [facility] Globulin (S) [Mass/Vol] 3.4 g/dL 2.2-4.2 [facility] No Panel InformationOrdered By: Tanner Granger on 06-25-2023 VLDL Cholesterol 36 mg/dL 5-40 [facility] Thin prep Papanicolaou smear with manual screeningOrdered By: Tanner Granger on 06-25-2023 Thin prep Papanicolaou smear with manual screening 3.8 g/dL 3.2-5.0 [facility] Thin prep Papanicolaou smear with manual screening 24 U/L 15-37 [facility] Basophil percentageOrdered B y: Tanner Granger on 08-27-2022 Bilirubin [Mass/Vol] 0.50 mg/dL 0.20-1.00 [facility] Comment on above: For patients on eltr ombopag therapy, use of Dimension [place] TBIL is not recommended. Cholesterol [Mass/Vol] 94 mg/dL <200 [facility] Comment on above: <200 mg/dL Desirable 200-240 mg/dL Borderline >240 mg/dL High Risk Protein [Mass/Vol] 6.7 g/dL 6.4-8.2 [facility] Triglyceride [Mass/Vol] 148 mg/dL <199 [facility] Comment on above: The drugs N-Acetylcy steine and Metamizole may falsely depress this assay.Serum Triglycerides Reference Interval Normal <150 mg/dL Borderline high 150 - 199 mg/dL High 200 - 499 mg/dL Very High > or = 500 mg/dL Direct bilirubinOrdered By: Tanner Granger on 08-27-2022 Bilirubin.direct [Mass/Vol] 0.13 mg/dL 0.00-0.30 [facility] Laboratory - Chemistry and C hemistry - challengeOrdered By: Tanner Granger on 08-27-2022 ALP [Catalytic activity/Vol] 59 U/L 45-117 [facility] ALT [Catalytic activity/Vol] 26 U/L 16-61 [facility] Globulin (S) [Mass/Vol] 3.1 g/dL 2.2-4.2 [facility] Serum or plasma albumin meron urement (mass/volume)Ordered By: Tanner Granger on 08-27-2022 Albumin [Mass/Vol] 3.6 g/dL 3.2-5.0 [facility] Serum or plasma cholesterol in HDL measurement (mass/volume)Ordered By: Tanner Granger on 08-27-2022 Cholesterol in HDL [Mass/Vol] 36 mg/dL >40 [facility] Comment on above: The drugs N-Acetylcy steine and Metamizole may falsely depress this assay. Reference Range HDL <40 mg/dL Low HDL Cholesterol HDL >or= 60 mg/dL High HDL Cholesterol Serum or plasma cholesterol in VLDL measurement (mass/volume)Ordered By: Tanner Granger on 08-27-2022 Cholesterol in VLDL [Mass/Vol] 30 mg/dL 5-40 [facility] Serum or plasma low density lipoprotein (LDL) cholesterol measurement (mass/volume)Ordered By: Tanner Granger on 08-27-2022 Cholesterol in LDL [Mass/Vol] 28 mg/dL 0-130 [facility] Thin prep Papanicolaou smear with manual screeningOrdered By: Tanner Granger on 08-27-2022 Thin prep Papanicolaou smear with manual screening 16 U/L 15-37 [facility] Basophil percentageon 2021 Chloride [Moles/Vol] 109 mmol/L 98-107 [facility] Work Phone: Glucose [Mass/Vol] 97 mg/dL 74-106 [facility] Work Phone: Potassium [Moles/Vol] 5.0 mmol/L 3.5-5.1 [facility] Work Phone: Sodium [Moles/Vol] 140 mmol/L 136-145 [facility] Work Phone: [phone] WBC (Bld) [#/Vol] 8.7 10*3/uL 4.4-11.0 [facility] Work Phone: [phone] Blood erythrocytes count (nu mber/volume)on 12-22-2021 RBC (Bld) [#/Vol] 4.30 10*6/uL 4.6-6.2 [facility] Work Phone: [phone] Blood hemoglobin measurement (mass/volume)on 12-22-2021 Hemoglobin (Bld) [Mass/Vol] 14.2 g/dL 13.0-16.5 [facility] Work Phone: Blood platelet mean volumeon 12-22-2021 Platelet mean volume (Bld) [Entitic vol] 10.0 fL 6.2-12.0 [facility] Work Phone: [phone] Determination of erythrocyte mean corpuscular volume (MCV)on 12-22-2021 MCV (RBC) [Entitic vol] 100.2 fL 80-94 [facility] Work Phone: Hematocrit Auto (Bld) [Volum e fraction]on 12-22-2021 Hematocrit (Bld) [Volume fraction] 43.1 % 40-54 [facility] Work Phone: [phone] INR in Blood by Coagulation assayon 12-22-2021 INR Coag (Bld) [Relative time] 1.0 {INR} [facility] Work Phone: [phone] Laboratory - Chemistry and C hemistry - challengeon 12-22-2021 CO2 [Moles/Vol] 27.0 mmol/L 21.0-32.0 [facility] Work Phone: Urea nitrogen/Creatinine [Mass ratio] 19.3 mg/mg 10-20 [facility] Work Phone: Laboratory - Coagulationon 0 12-22-2021 aPTT Coag (Bld) [Time] 22.8 s 24.1-36.2 [facility] Work Phone: PT Coag (PPP) [Time] 13.3 s 11.7-14.9 [facility] Work Phone: Laboratory - Hematology and Cell countson 12-22-2021 Erythrocyte distribution width (RBC) [Entitic vol] 46.7 fL 35.1-43.9 [facility] Work Phone: Erythrocyte distribution width (RBC) [Ratio] 12.5 % 11.6-14.6 [facility] Work Phone: MCH (RBC) [Entitic mass] 33.0 pg 27.0-32.0 [facility] Work Phone: MCHC Auto (RBC) [Mass/Vol]on 12-22-2021 MCHC (RBC) [Mass/Vol] 32.9 g/dL 32-36 [facility] Work Phone: No Panel Informationon 12-22 Estimated GFR (MDRD) Amer 80 mL/min >60 [facility] Work Phone: Comment on above: GFR Calc Estimated GFR (MDRD) Non-Af Amer 66 mL/min >60 [facility] Work Phone: Comment on above: Non- GFR Calc Platelets bldon 12-22-2021 Platelets (Bld) [#/Vol] 284 10*3/uL 150-450 [facility] Work Phone: Serum or plasma calcium meron urement (mass/volume)on 12-22-2021 Calcium [Mass/Vol] 9.3 mg/dL 8.5-10.1 [facility] Work Phone: Serum or plasma creatinine m easurement (mass/volume)on 12-22-2021 Creatinine [Mass/Vol] 1.19 mg/dL 0.70-1.30 [facility] Work Phone: Comment on above: The validity of the calculated GFR & GFRAA in patients over 70 years has not been determined. Clinical correlation is essential. Serum or plasma urea nitroge n measurement (mass/volume)on 12-22-2021 Urea nitrogen [Mass/Vol] 23 mg/dL 7-18 [facility] Work Phone: Thin prep Papanicolaou smear with manual screeningon 12-22-2021 Thin prep Papanicolaou smear with manual screening 4 5-15 [facility] Work Phone: Basophil percentageon 2021 Bilirubin [Mass/Vol] 0.40 mg/dL 0.20-1.00 [facility] Work Phone: Comment on above: For patients on eltr ombopag therapy, use of Dimension [place] TBIL is not recommended. Cholesterol [Mass/Vol] 111 mg/dL <200 [facility] Work Phone: Comment on above: <200 mg/dL Desirable 200-240 mg/dL Borderline >240 mg/dL High Risk Protein [Mass/Vol] 7.2 g/dL 6.4-8.2 [facility] Work Phone: Triglyceride [Mass/Vol] 152 mg/dL <199 [facility] Work Phone: Comment on above: The drugs N-Acetylcy steine and Metamizole may falsely depress this assay.Serum Triglycerides Reference Interval Normal <150 mg/dL Borderline high 150 - 199 mg/dL High 200 - 499 mg/dL Very High > or = 500 mg/dL Direct bilirubinon 2 Bilirubin.direct [Mass/Vol] 0.11 mg/dL 0.00-0.30 [facility] Work Phone: Laboratory - Chemistry and C hemistry - challengeon 10-24-2021 ALP [Catalytic activity/Vol] 59 U/L 45-117 [facility] Work Phone: ALT [Catalytic activity/Vol] 30 U/L 16-61 [facility] Work Phone: Globulin (S) [Mass/Vol] 3.4 g/dL 2.2-4.2 [facility] Work Phone: Serum or plasma albumin meron urement (mass/volume)on 10-24-2021 Albumin [Mass/Vol] 3.8 g/dL 3.2-5.0 [facility] Work Phone: Serum or plasma cholesterol in HDL measurement (mass/volume)on 10-24-2021 Cholesterol in HDL [Mass/Vol] 39 mg/dL >40 [facility] Work Phone: Comment on above: The drugs N-Acetylcy steine and Metamizole may falsely depress this assay. Reference Range HDL <40 mg/dL Low HDL Cholesterol HDL >or= 60 mg/dL High HDL Cholesterol Serum or plasma cholesterol in VLDL measurement (mass/volume)on 10-24-2021 Cholesterol in VLDL [Mass/Vol] 30 mg/dL 5-40 [facility] Work Phone: Serum or plasma low density lipoprotein (LDL) cholesterol measurement (mass/volume)on 10-24-2021 Cholesterol in LDL [Mass/Vol] 42 mg/dL 0-130 [facility] Work Phone: Thin prep Papanicolaou smear with manual screeningon 10-24-2021 Thin prep Papanicolaou smear with manual screening 14 U/L 15-37 [facility] Work Phone: Absolute lymphocyte counton 09-25-2021 Lymphocytes Auto (Unsp spec) [#/Vol] 2.19 10*3/uL 0.83-4.51 [facility] Work Phone: Basophil percentageon 2021 Basophils/100 WBC (Bld) 0.4 % 0-1 [facility] Work Phone: Bilirubin [Mass/Vol] 0.40 mg/dL 0.20-1.00 [facility] Work Phone: Comment on above: For patients on eltr ombopag therapy, use of Dimension [place] TBIL is not recommended. Chloride [Moles/Vol] 114 mmol/L 98-107 [facility] Work Phone: Eosinophils/100 WBC (Bld) 4.2 % 0-5 [facility] Work Phone: Glucose [Mass/Vol] 103 mg/dL 74-106 [facility] Work Phone: Comment on above: Fasting Glucose resu lt from 100 to 125 mg/dL suggests IMPAIRED HOMEOSTASIS per A.D.A. criteria. Neutrophils (Bld) [#/Vol] 3.5 10*3/uL 2.0-7.7 [facility] Work Phone: Neutrophils/100 WBC (Bld) 50.2 % 47-70 [facility] Work Phone: Potassium [Moles/Vol] 4.9 mmol/L 3.5-5.1 [facility] Work Phone: Protein [Mass/Vol] 7.2 g/dL 6.4-8.2 [facility] Work Phone: Sodium [Moles/Vol] 139 mmol/L 136-145 [facility] Work Phone: WBC (Bld) [#/Vol] 6.9 10*3/uL 4.4-11.0 [facility] Work Phone: Blood erythrocytes count (nu mber/volume)on 09-25-2021 RBC (Bld) [#/Vol] 4.04 10*6/uL 4.6-6.2 [facility] Work Phone: Blood hemoglobin measurement (mass/volume)on 09-25-2021 Hemoglobin (Bld) [Mass/Vol] 13.2 g/dL 13.0-16.5 [facility] Work Phone: Blood lymphocytes/100 leukoc yteson 09-25-2021 Lymphocytes/100 WBC (Bld) 31.7 % 19-41 [facility] Work Phone: Blood monocytes/100 leukocyt eson 09-25-2021 Monocytes/100 WBC (Bld) 13.2 % 0-10 [facility] Work Phone: Blood platelet mean volumeon 09-25-2021 Platelet mean volume (Bld) [Entitic vol] 10.0 fL 6.2-12.0 [facility] Work Phone: Determination of erythrocyte mean corpuscular volume (MCV)on 09-25-2021 MCV (RBC) [Entitic vol] 98.0 fL 80-94 [facility] Work Phone: Erythrocyte sedimentation ra raquel 09-25-2021 ESR (Bld) [Velocity] 10 mm/h 0-20 [facility] Work Phone: Hematocrit Auto (Bld) [Volum e fraction]on 09-25-2021 Hematocrit (Bld) [Volume fraction] 39.6 % 40-54 [facility] Work Phone: [phone] Laboratory - Chemistry and C hemistry - challengeon 09-25-2021 ALP [Catalytic activity/Vol] 62 U/L 45-117 [facility] Work Phone: ALT [Catalytic activity/Vol] 31 U/L 16-61 [facility] Work Phone: CO2 [Moles/Vol] 21.0 mmol/L 21.0-32.0 [facility] Work Phone: [phone] Globulin (S) [Mass/Vol] 3.3 g/dL 2.2-4.2 [facility] Work Phone: Urea nitrogen/Creatinine [Mass ratio] 21.4 mg/mg 10-20 [facility] Work Phone: Laboratory - Hematology and Cell countson 09-25-2021 Erythrocyte distribution width (RBC) [Entitic vol] 43.6 fL 35.1-43.9 [facility] Work Phone: Erythrocyte distribution width (RBC) [Ratio] 11.9 % 11.6-14.6 [facility] Work Phone: Immature granulocytes/100 WBC (Bld) 0.300 % 0.0-0.9 [facility] Work Phone: Comment on above: IG% - Immature Granu locytes (promyelocytes, myelocytes and metamyelocytes) > 1% indicates that a LEFT SHIFT is Present. MCH (RBC) [Entitic mass] 32.7 pg 27.0-32.0 [facility] Work Phone: Nucleated RBC/100 WBC (Bld) [Ratio] 0 % 0-5 [facility] Work Phone: MCHC Auto (RBC) [Mass/Vol]on 09-25-2021 MCHC (RBC) [Mass/Vol] 33.3 g/dL 32-36 [facility] Work Phone: No Panel Informationon 09-25 Estimated GFR (MDRD) Amer 64 mL/min >60 [facility] Work Phone: Comment on above: GFR Calc Estimated GFR (MDRD) Non-Af Amer 53 mL/min >60 [facility] Work Phone: Comment on above: Non- GFR Calc Platelets bldon 09-25-2021 Platelets (Bld) [#/Vol] 281 10*3/uL 150-450 [facility] Work Phone: Serum or plasma C reactive p rotein measurement (mass/volume)on 09-25-2021 CRP [Mass/Vol] 4.57 mg/L 0.0-3.0 [facility] Work Phone: Comment on above: C-Reactive Protein ( CRP) provides useful information for thediagnosis, therapy and monitoring of inflammatory processesand associated diseases. For the evaluation of Relative Riskfor Cardiovascular Disease, a High Sensitivity CRP (HSCRP)should be ordered. Serum or plasma albumin meron urement (mass/volume)on 09-25-2021 Albumin [Mass/Vol] 3.9 g/dL 3.2-5.0 [facility] Work Phone: Serum or plasma albumin/glob ulin mass ratioon 09-25-2021 Albumin/Globulin [Mass ratio] 1.2 {ratio} 0.9-2.4 [facility] Work Phone: Serum or plasma calcium meron urement (mass/volume)on 09-25-2021 Calcium [Mass/Vol] 8.8 mg/dL 8.5-10.1 [facility] Work Phone: Serum or plasma creatinine m easurement (mass/volume)on 09-25-2021 Creatinine [Mass/Vol] 1.45 mg/dL 0.70-1.30 [facility] Work Phone: Comment on above: The validity of the calculated GFR & GFRAA in patients over 70 years has not been determined. Clinical correlation is essential. Serum or plasma urea nitroge n measurement (mass/volume)on 09-25-2021 Urea nitrogen [Mass/Vol] 31 mg/dL 7-18 [facility] Work Phone: Thin prep Papanicolaou smear with manual screeningon 09-25-2021 Thin prep Papanicolaou smear with manual screening 17 U/L 15-37 [facility] Work Phone: Thin prep Papanicolaou smear with manual screening 4 5-15 [facility] Work Phone: Absolute lymphocyte counton 06-01-2021 Lymphocytes Auto (Unsp spec) [#/Vol] 2.83 10*3/uL 0.83-4.51 [facility] Work Phone: Basophil percentageon 2021 Basophils/100 WBC (Bld) 0.4 % 0-1 [facility] Work Phone: Bilirubin [Mass/Vol] 0.20 mg/dL 0.20-1.00 [facility] Work Phone: Comment on above: For patients on eltr ombopag therapy, use of Dimension [place] TBIL is not recommended. Chloride [Moles/Vol] 110 mmol/L 98-107 [facility] Work Phone: Eosinophils/100 WBC (Bld) 2.5 % 0-5 [facility] Work Phone: Glucose [Mass/Vol] 84 mg/dL 74-106 [facility] Work Phone: Neutrophils (Bld) [#/Vol] 7.3 10*3/uL 2.0-7.7 [facility] Work Phone: Neutrophils/100 WBC (Bld) 63.8 % 47-70 [facility] Work Phone: Potassium [Moles/Vol] 4.5 mmol/L 3.5-5.1 [facility]: Protein [Mass/Vol] 7.1 g/dL 6.4-8.2 [facility] Work Phone: Sodium [Moles/Vol] 138 mmol/L 136-145 [facility] Work Phone: WBC (Bld) [#/Vol] 11.5 10*3/uL 4.4-11.0 [facility] Work Phone: Blood erythrocytes count (nu mber/volume)on 06-01-2021 RBC (Bld) [#/Vol] 3.94 10*6/uL 4.6-6.2 [facility] Work Phone: Blood hemoglobin measurement (mass/volume)on 06-01-2021 Hemoglobin (Bld) [Mass/Vol] 12.9 g/dL 13.0-16.5 [facility] Work Phone: Blood lymphocytes/100 leukoc yteson 06-01-2021 Lymphocytes/100 WBC (Bld) 24.6 % 19-41 [facility] Work Phone: Blood monocytes/100 leukocyt eson 06-01-2021 Monocytes/100 WBC (Bld) 8.2 % 0-10 [facility] Work Phone: Blood platelet mean volumeon 06-01-2021 Platelet mean volume (Bld) [Entitic vol] 9.2 fL 6.2-12.0 [facility] Work Phone: [phone] Determination of erythrocyte mean corpuscular volume (MCV)on 06-01-2021 MCV (RBC) [Entitic vol] 99.0 fL 80-94 [facility] Work Phone: Erythrocyte sedimentation ra raquel 06-01-2021 ESR (Bld) [Velocity] 21 mm/h 0-20 [facility] Work Phone: Hematocrit Auto (Bld) [Volum e fraction]on 06-01-2021 Hematocrit (Bld) [Volume fraction] 39.0 % 40-54 [facility] Work Phone: [phone] Laboratory - Chemistry and C hemistry - challengeon 06-01-2021 ALP [Catalytic activity/Vol] 60 U/L 45-117 [facility] Work Phone: ALT [Catalytic activity/Vol] 38 U/L 16-61 [facility] Work Phone: CO2 [Moles/Vol] 21.0 mmol/L 21.0-32.0 [facility] Work Phone: [phone] Globulin (S) [Mass/Vol] 3.6 g/dL 2.2-4.2 [facility] Work Phone: [phone] Urea nitrogen/Creatinine [Mass ratio] 21.0 mg/mg 10-20 [facility] Work Phone: Laboratory - Hematology and Cell countson 06-01-2021 Erythrocyte distribution width (RBC) [Entitic vol] 47.4 fL 35.1-43.9 [facility] Work Phone: [phone] Erythrocyte distribution width (RBC) [Ratio] 13.0 % 11.6-14.6 [facility] Work Phone: Immature granulocytes/100 WBC (Bld) 0.500 % 0.0-0.9 [facility] Work Phone: [phone] Comment on above: IG% - Immature Granu locytes (promyelocytes, myelocytes and metamyelocytes) > 1% indicates that a LEFT SHIFT is Present. MCH (RBC) [Entitic mass] 32.7 pg 27.0-32.0 [facility] Work Phone: Nucleated RBC/100 WBC (Bld) [Ratio] 0 % 0-5 [facility] Work Phone: MCHC Auto (RBC) [Mass/Vol]on 06-01-2021 MCHC (RBC) [Mass/Vol] 33.1 g/dL 32-36 [facility] Work Phone: No Panel Informationon 06-01 Estimated GFR (MDRD) Amer 76 mL/min >60 [facility] Work Phone: Comment on above: GFR Calc Estimated GFR (MDRD) Non-Af Amer 63 mL/min >60 [facility] Work Phone: Comment on above: Non- GFR Calc Platelets bldon 06-01-2021 Platelets (Bld) [#/Vol] 302 10*3/uL 150-450 [facility] Work Phone: Qualitative QuantiFERON-TB g old in tube teston 06-01-2021 M. tuberculosis tuberculin stim IFN-g Ql (Bld) 0.02 IU/mL . [facility] Work Phone: Serum or plasma C reactive p rotein measurement (mass/volume)on 06-01-2021 CRP [Mass/Vol] 7.40 mg/L 0.0-3.0 [facility] Work Phone: Comment on above: C-Reactive Protein ( CRP) provides useful information for thediagnosis, therapy and monitoring of inflammatory processesand associated diseases. For the evaluation of Relative Riskfor Cardiovascular Disease, a High Sensitivity CRP (HSCRP)should be ordered. Serum or plasma albumin meron urement (mass/volume)on 06-01-2021 Albumin [Mass/Vol] 3.5 g/dL 3.2-5.0 [facility] Work Phone: Serum or plasma albumin/glob ulin mass ratioon 06-01-2021 Albumin/Globulin [Mass ratio] 1.0 {ratio} 0.9-2.4 [facility] Work Phone: Serum or plasma calcium meron urement (mass/volume)on 06-01-2021 Calcium [Mass/Vol] 8.5 mg/dL 8.5-10.1 [facility] Work Phone: Serum or plasma creatinine m easurement (mass/volume)on 06-01-2021 Creatinine [Mass/Vol] 1.24 mg/dL 0.70-1.30 [facility] Work Phone: Comment on above: The validity of the calculated GFR & GFRAA in patients over 70 years has not been determined. Clinical correlation is essential. Serum or plasma urea nitroge n measurement (mass/volume)on 06-01-2021 Urea nitrogen [Mass/Vol] 26 mg/dL 7-18 [facility] Work Phone: Thin prep Papanicolaou smear with manual screeningon 06-01-2021 Thin prep Papanicolaou smear with manual screening 19 U/L 15-37 [facility] Work Phone: Thin prep Papanicolaou smear with manual screening 7 5-15 [facility] Work Phone: Thin prep Papanicolaou smear with manual screening Comment . [facility] Work Phone: Comment on above: The QuantiFERON-TB G old Plus result is determined bysubtracting the Nil value from either TB antigen (Ag) tube.The mitogen tube serves as a control for the test. Thin prep Papanicolaou smear with manual screening 0.02 IU/mL . [facility] Work Phone: Thin prep Papanicolaou smear with manual screening 0.01 IU/mL . [facility] Work Phone: Thin prep Papanicolaou smear with manual screening > 10.00 IU/mL . [facility] Work Phone: Thin prep Papanicolaou smear with manual screening Negative Negative [facility] Work Phone: Comment on above: The specimen receive d for QuantiFERON testing was incubatedby the ordering institution. Specific procedures outlinedin our Directory of Services and in the package insert forthe QuantiFERON Gold (In Tube) test must be followed toenable for proper stimulation of cells for the productionof interferon gamma. Chemiluminescence immunoassaymethodologyPerformed at: [facility] [place], [place] [id number] Director: Mahesh George PhD, Phone: [phone] Vital Signs Date Time Vital Sign Value Performing Clinician Toni ba 11-02-2024 14:25-0400 Body height 177.[address] David Jacobo MD Work Phone: [facility] 11-02-2024 14:25-0400 Body mass index (BMI) [Ratio] 27.2 kg/m2 Dr. David Jacobo MD Work Phone: [facility] 11-02-2024 14:25-0400 Body weight 86.[address] David Jacobo MD Work Phone: [facility] 11-02-2024 14:25-0400 Diastolic blood pressure 74 mm[Hg] Dr. David Jacobo MD Work Phone: [facility] 11-02-2024 14:25-0400 Heart rate 52 /min Dr. David Jacobo MD Work Phone: [facility] 11-02-2024 14:25-0400 Respiratory rate 14 /min Dr. David Jacobo MD Work Phone: [facility] 11-02-2024 14:25-0400 SaO2% (BldA) [Mass fraction] 96 % Dr. David Jacobo MD Work Phone: [facility] 11-02-2024 14:25-0400 Systolic blood pressure 120 mm[Hg] Dr. David Jacobo MD Work Phone: [facility] 12-12-2023 09:42-0400 Body temperature 99 [degF] Ilana Sanabria APRN.FURNACE RELINER Work Phone: [facility] 12-12-2023 09:42-0400 Body weight 87.5 kg Ilana Sanabria APRN.FURNACE RELINER Work Phone: [facility] 12-12-2023 09:42-0400 Diastolic blood pressure 68 mm[Hg] Ilana Callow [employer] MA[employer]NA[employer]ER Work Phone: [facility] 12-12-2023 09:42-0400 Heart rate 75 /min Ilana Sanabria [employer] RO[employer]NACE [employer]INER Work Phone: [facility] 12-12-2023 09:42-0400 Respiratory rate 20 /min Ilana Cassidyow [employer] RO[employer] MA[employer]NACE RELINER Work Phone: [facility] 12-12-2023 09:42-0400 SaO2% (BldA) [Mass fraction] 95 % Ilana Sanabria [employer] RO[employer]NACE [employer]INER Work Phone: [facility] 12-12-2023 09:42-0400 Systolic blood pressure 120 mm[Hg] Ilana Sanabria [employer] RO[employer] MA[employer]NACE [employer]INER Work Phone: [facility] 08-19-2023 08:40-0400 Body temperature 97.1 [degF] Dr. David Jacobo Work Phone: [facility] 08-19-2023 08:40-0400 Diastolic blood pressure 73 mm[Hg] Dr. David Jacobo Work Phone: [facility] 08-19-2023 08:40-0400 Heart rate 55 /min Dr. David Jacobo Work Phone: [facility] 08-19-2023 08:40-0400 Respiratory rate 14 /min Dr. David Jacobo Work Phone: [facility] 08-19-2023 08:40-0400 SaO2% (BldA) [Mass fraction] 100 % Dr. David Jacobo Work Phone: [facility] 08-19-2023 08:40-0400 Systolic blood pressure 139 mm[Hg] Dr. David Jacobo Work Phone: [facility] 08-19-2023 04:35-0400 Body mass index (BMI) [Ratio] 28 kg/m2 Dr. David Jacobo Work Phone: [facility] 08-19-2023 04:35-0400 Body weight 88.[address] David Jacoob Work Phone: [facility] 08-17-2023 16:55-0400 Body height 177.[address] David Jacobo Work Phone: [facility] 08-17-2023 15:59-0400 SaO2% (BldA) [Mass fraction] 96 % Dr. David Jacobo Work Phone: [facility] 08-17-2023 15:45-0400 Body temperature 98.6 [degF] Dr. David Jacobo Work Phone: [facility] 08-17-2023 15:45-0400 Diastolic blood pressure 116 mm[Hg] Dr. David Jacobo Work Phone: [facility] 08-17-2023 15:45-0400 Heart rate 72 /min Dr. David Jacobo Work Phone: [phone] [address] 08-17-2023 15:45-0400 Respiratory rate 16 /min Dr. David Jacobo Work Phone: [facility] 08-17-2023 15:45-0400 Systolic blood pressure 184 mm[Hg] Dr. David Jacobo Work Phone: [facility] 08-17-2023 15:39-0400 Body height 177.[address] David Jacobo Work Phone: [facility] 08-17-2023 15:39-0400 Body mass index (BMI) [Ratio] 28 kg/m2 Dr. David Jacobo Work Phone: [facility] 08-17-2023 15:39-0400 Body weight 88.[address] David Jacobo Work Phone: [facility] 08-15-2023 08:43-0400 Body temperature 97.8 [degF] Dr. David Jacobo Work Phone: [facility] 08-15-2023 08:43-0400 Diastolic blood pressure 67 mm[Hg] Dr. David Jacobo Work Phone: [facility] 08-15-2023 08:43-0400 Heart rate 56 /min Dr. David Jacobo Work Phone: [facility] 08-15-2023 08:43-0400 Respiratory rate 18 /min Dr. David Jacobo Work Phone: [facility] 08-15-2023 08:43-0400 SaO2% (BldA) [Mass fraction] 96 % Dr. David Jacobo Work Phone: [facility] 08-15-2023 08:43-0400 Systolic blood pressure 137 mm[Hg] Dr. David Jacobo Work Phone: [facility] 08-14-2023 14:53-0400 Body height 177.[address] David Jacobo Work Phone: [phone] [address] 08-14-2023 14:53-0400 Body mass index (BMI) [Ratio] 27.8 kg/m2 Dr. David Jacobo Work Phone: [facility] 08-14-2023 14:53-0400 Body weight 88.[address] David Jacobo Work Phone: [facility] 08-14-2023 13:42-0400 Body temperature 97.9 [degF] Dr. David Jacobo Work Phone: [facility] 08-14-2023 13:42-0400 Diastolic blood pressure 77 mm[Hg] Dr. David Jacobo Work Phone: [facility] 08-14-2023 13:42-0400 Heart rate 68 /min Dr. David Jacobo Work Phone: [facility] 08-14-2023 13:42-0400 Respiratory rate 18 /min Dr. David Jacobo Work Phone: [facility] 08-14-2023 13:42-0400 SaO2% (BldA) [Mass fraction] 97 % Dr. David Jacobo Work Phone: [facility] 08-14-2023 13:42-0400 Systolic blood pressure 152 mm[Hg] Dr. David Jacobo Work Phone: [facility] 08-14-2023 09:06-0400 Body height 177.[address] David Jacobo Work Phone: [facility] 08-14-2023 09:06-0400 Body mass index (BMI) [Ratio] 28.1 kg/m2 Dr. David Jacobo Work Phone: [facility] 08-14-2023 09:06-0400 Body weight 88.[address] David Jacobo Work Phone: [facility] 08-13-2023 08:11-0400 Body mass index (BMI) [Ratio] 28.7 kg/m2 Dr. David Jacobo Work Phone: [facility] 08-13-2023 08:11-0400 Body temperature 97.8 [degF] Dr. David Jacobo Work Phone: [phone] [place] [address] 08-13-2023 08:11-0400 Body weight 90.[address] David Jacobo Work Phone: [facility] 08-13-2023 08:11-0400 Diastolic blood pressure 72 mm[Hg] Dr. David Jacobo Work Phone: [facility] 08-13-2023 08:11-0400 Heart rate 75 /min Dr. David Jacobo Work Phone: [facility] 08-13-2023 08:11-0400 Respiratory rate 16 /min Dr. David Jacobo Work Phone: [facility] 08-13-2023 08:11-0400 SaO2% (BldA) [Mass fraction] 96 % Dr. David Jacobo Work Phone: [facility] 08-13-2023 08:11-0400 Systolic blood pressure 132 mm[Hg] Dr. David Jacobo Work Phone: [facility] 08-02-2023 12:53-0400 Body mass index (BMI) [Ratio] 29 kg/m2 Dr. David Jacobo Work Phone: [facility] 08-02-2023 12:53-0400 Body weight 91.[address] David Jacobo Work Phone: [facility] 08-02-2023 12:53-0400 Diastolic blood pressure 77 mm[Hg] Dr. David Jacobo Work Phone: [facility] 08-02-2023 12:53-0400 Heart rate 56 /min Dr. David Jacobo Work Phone: [facility] 08-02-2023 12:53-0400 Respiratory rate 16 /min Dr. David Jacobo Work Phone: [facility] 08-02-2023 12:53-0400 Systolic blood pressure 143 mm[Hg] Dr. David Jacobo Work Phone: [facility] 06-17-2023 13:36-0500 Body height 177.[address] David Jacobo Work Phone: [facility] 06-17-2023 13:36-0500 Body mass index (BMI) [Ratio] 29.5 kg/m2 Dr. David Jacobo Work Phone: [facility] 06-17-2023 13:36-0500 Body weight 93.[address] David Jacobo Work Phone: [facility] 06-17-2023 13:36-0500 Diastolic blood pressure 77 mm[Hg] Dr. David Jacobo Work Phone: [facility] 06-17-2023 13:36-0500 Heart rate 57 /min Dr. David Jacobo Work Phone: [facility] 06-17-2023 13:36-0500 Respiratory rate 18 /min Dr. David Jacobo Work Phone: [facility] 06-17-2023 13:36-0500 SaO2% (BldA) [Mass fraction] 97 % Dr. David Jacobo Work Phone: [facility] 06-17-2023 13:36-0500 Systolic blood pressure 146 mm[Hg] Dr. David Jacobo Work Phone: [facility] 06-08-2022 16:27-0500 Body height 177.[address] David Jacobo Work Phone: [facility] 06-08-2022 16:27-0500 Body mass index (BMI) [Ratio] 29 kg/m2 Dr. David Jacobo Work Phone: [facility] 06-08-2022 16:27-0500 Body weight 91.[address] David Jacobo Work Phone: [facility] 06-08-2022 16:27-0500 Diastolic blood pressure 88 mm[Hg] Dr. David Jacobo Work Phone: [facility] 06-08-2022 16:27-0500 Heart rate 60 /min Dr. David Jacobo Work Phone: [facility] 06-08-2022 16:27-0500 Respiratory rate 18 /min Dr. David Jacobo Work Phone: [facility] 06-08-2022 16:27-0500 SaO2% (BldA) [Mass fraction] 95 % Dr. David Jacobo Work Phone: [facility] 06-08-2022 16:27-0500 Systolic blood pressure 157 mm[Hg] Dr. David Jacobo Work Phone: [facility] 12-29-2021 07:41-0400 Body height 177.[address] David Jacobo Work Phone: [facility] Work Phone: 12-29-2021 07:41-0400 Body weight 83.[address] David Jacobo Work Phone: [facility] Work Phone: 12-28-2021 09:02-0400 Body mass index (BMI) [Ratio] 26.5 kg/m2 Dr. David Jacobo Work Phone: [facility] Work Phone: 11-18-2021 14:56-0400 Body height 177.[address] David Jacobo Work Phone: [facility] Work Phone: 11-18-2021 14:56-0400 Body mass index (BMI) [Ratio] 26.6 kg/m2 Dr. David Jacobo Work Phone: [facility] Work Phone: 11-18-2021 14:56-0400 Body weight 84.[address] David Jacobo Work Phone: [facility] Work Phone: 11-18-2021 14:56-0400 Diastolic blood pressure 60 mm[Hg] Dr. David Jacobo Work Phone: [facility] Work Phone: 11-18-2021 14:56-0400 Heart rate 60 /min Dr. David Jacobo Work Phone: [facility] Work Phone: 11-18-2021 14:56-0400 Respiratory rate 16 /min Dr. David Jacobo Work Phone: [facility] Work Phone: 11-18-2021 14:56-0400 Systolic blood pressure 124 mm[Hg] Dr. David Jacobo Work Phone: [facility] Work Phone: 06-02-2021 15:12-0500 Body height 177.[address] David Jacobo Work Phone: [facility] Work Phone: 06-02-2021 15:12-0500 Body mass index (BMI) [Ratio] 25.9 kg/m2 Dr. David Jacobo Work Phone: [facility] Work Phone: 06-02-2021 15:12-0500 Body weight 82.[address] David Jacobo Work Phone: [facility] Work Phone: 06-02-2021 15:12-0500 Diastolic blood pressure 77 mm[Hg] Dr. David Jacobo Work Phone: [facility] Work Phone: 06-02-2021 15:12-0500 Heart rate 58 /min Dr. David Jacobo Work Phone: [facility] Work Phone: 06-02-2021 15:12-0500 Respiratory rate 16 /min Dr. David Jacobo Work Phone: [facility] Work Phone: 06-02-2021 15:12-0500 Systolic blood pressure 133 mm[Hg] Dr. David Jacobo Work Phone: [facility] Work Phone: Encounters Encounter Date Encounter Type Care Provider Facility Start: 12-06-2024 ambulatory David Jacobo Facility:[facility] Start: 11-02-2024 End: 11-02-2024 Patient encounter procedure Vi DE LA VEGA -[facility] Work Phone: Start: 11-02-2024 End: 11-02-[address] David Jacobo MD Work Phone: -[facility] Start: 07-27-2024 End: 07-27-[address] David Jacobo MD -[facility] Start: 07-27-2024 End: 07-27-2024 ambulatory David Jacobo Facility:[facility] Start: 05-19-2024 End: 05-19-2024 ambulatory David Jacobo Facility:[facility] Start: 05-09-2024 End: 05-09-2024 ambulatory David Jacobo Facility:[facility] Start: 03-30-2024 End: 03-30-2024 ambulatory David Jacobo Facility:[facility] Start: 12-13-2023 End: 12-13-2023 Telephone encounter Popeye Saha APRN.CNP Work Phone: [facility] Comment on above: Results Start: 12-12-2023 End: 12-12-2023 ambulatory DAVID JACOBO Facility:[facility] Start: 12-12-2023 End: 12-12-2023 Patient encounter procedure Ilana Sanabria BRENDON.FURNACE RELINER Work Phone: [facility] Comment on above: Acute cough (Primary Dx); Sorethroat Start: 08-19-2023 Non-patient / Non-visit Dr. Italo Jacobo Work Phone: [facility] Inpatient Physicians Work Phone: Start: 08-18-2023 Non-patient / Non-visit Dr. Italo Jacobo Work Phone: [facility] Start: 08-18-2023 Non-patient / Non-visit Dr. Italo Jacobo Work Phone: [facility] Work Phone: Start: 08-17-2023 Non-patient / Non-visit Dr. Italo Jacobo Work Phone: [facility] Start: 08-17-2023 End: 08-19-2023 Evaluation and management of inpatient Dr. David Jacobo Work Phone: [facility]-Intensive Care Unit Work Phone: Start: 08-16-[address] David Jacobo Work Phone: [facility]-Laboratory, Specimen Work Phone: Start: 08-16-2023 End: 08-16-[address] David Jacobo Work Phone: [facility] Work Phone: Start: 08-15-2023 Non-patient / Non-visit Dr. Italo Jacobo Work Phone: [facility] Work Phone: Start: 08-14-2023 Non-patient / Non-visit Dr. Italo Jacobo Work Phone: [facility] Work Phone: Start: 08-14-2023 End: 08-15-2023 Evaluation and management of inpatient Dr. David Jacobo Work Phone: [facility]-Medical Surgical 3 Work Phone: Start: 08-13-2023 End: 08-13-[address] David Jacobo Work Phone: [facility] Work Phone: Start: 08-02-2023 End: 08-02-[address] David Jacobo Work Phone: [facility] Work Phone: Start: 07-22-2023 End: 07-22-[address] David Jacobo Work Phone: [facility] Work Phone: Start: 07-22-2023 End: 07-22-[address] David Jacobo Work Phone: [facility]-Outpatient Pavilion Ultrasound Work Phone: Start: 06-25-2023 End: 06-25-[address] David Jacobo Work Phone: [facility] Work Phone: Start: 06-25-2023 End: 06-25-[address] David Jacobo Work Phone: [facility]-Laboratory Work Phone: Start: 06-17-2023 End: 06-17-[address] David Jacobo Work Phone: [facility] Work Phone: Start: 06-10-2023 End: 06-10-2023 ambulatory [facility] Work Phone: Start: 06-10-2023 End: 06-10-2023 Patient encounter procedure [facility] Work Phone: Start: 06-03-2023 End: 06-03-2023 ambulatory [facility] Work Phone: Start: 06-03-2023 End: 06-03-2023 Patient encounter procedure [facility]-Outpatient Breast Imaging Work Phone: Start: 12-16-2022 End: 01-24-2023 ambulatory DAVID JACOBO MD Facility:B Start: 12-16-2022 End: 01-24-2023 Physical therapy management ADDIE ONTIVEROS MD [facility] Start: 09-29-2022 End: 09-29-[address] David Jacobo Work Phone: [facility] Work Phone: Start: 09-29-2022 End: 09-29-[address] David Jacobo Work Phone: [facility]-MRI - [facility] Start: 08-27-2022 End: 08-27-[address] David Jacobo Work Phone: [facility] Work Phone: Start: 08-27-2022 End: 08-27-[address] David Jacobo Work Phone: [facility]-Laboratory Start: 06-08-2022 End: 06-08-[address] David Jacobo Work Phone: [facility] Start: 12-29-2021 End: 12-29-2021 Admission to same day surgery center Dr. David Jacobo Work Phone: [facility]-Compliance And Control Analyst/Special Procedures Start: 12-29-2021 End: 12-29-[address] David Jacobo Work Phone: [facility] Work Phone: Start: 12-28-2021 Non-patient / Non-visit Dr. Italo Jacobo Work Phone: [facility] Start: 12-22-2021 End: 12-22-[address] David Jacobo Work Phone: [facility] Start: 12-02-2021 Non-patient / Non-visit Dr. Italo Jacobo Work Phone: [facility] Start: 12-02-2021 End: 12-02-[address] David Jacobo Work Phone: [facility] Work Phone: Start: 12-02-2021 End: 12-02-[address] [facility] Start: 11-18-2021 End: 11-18-[address] David Jacobo Work Phone: [facility] Start: 10-24-2021 End: 10-24-2021 [facility] Start: 09-25-2021 End: 09-25-[address] David Jacobo Work Phone: [facility] Start: 06-02-2021 End: 06-02-[address] David Jacobo Work Phone: [facility] Start: 06-01-2021 End: 06-01-[address] David Jacobo Work Phone: [facility] Procedures Date Procedure Procedure Detail Performing Clinician Start: 07-27-2024 Assay of prostate sp ecific antigen total Dr. David Jacobo MD Work Phone: Comment on above: This test was perfor med using the [employer] tPSA method. Measured values of a patient sample can vary depending on the testing procedure used. PSA values determined on patient samples by different testing procedures cannot be used interchangeably. If there is a change in PSA assays while monitoring therapy, sequential testing should be performed to confirm baseline values. Start: 08-14-2023 Investigation of tra nsfusion reaction Dr. David Jacobo Work Phone: Start: 08-14-2023 Microbial culture, routine Dr. David Jacobo Work Phone: Start: 08-14-2023 Streptococcus pyogen es rRNA assay Dr. David Jacobo Work Phone: Start: 08-14-2023 CT of soft tissues o f neck with contrast Dr. David Jacobo Work Phone: Start: 07-22-[address] David Jacobo Work Phone: Start: 06-10-2023 CT of chest Start: 06-03-2023 Screening mammography Start: 06-03-2023 Ultrasonography of breast Start: 09-29-2022 Magnetic resonance angiography of head without contrast Dr. David Jacobo Work Phone: Start: 09-29-2022 MRI of brain without contrast Dr. David Jacobo Work Phone: Start: 12-22-2021 Plain chest X-ray Dr. Regino Jacobo Work Phone: Start: 12-02-2021 Radionuclide imaging of perfusion of myocardium under exercise stress Dr. David Jacobo Work Phone: Plan of Treatment Date Care Activity Detail Author Start: 08-11-2030 Urine microalbumin profile DTaP,Tdap,Td Vaccine (2 - Td or Tdap) [facility] Start: 11-02-2024 Evaluation of diagno stic study results [facility] Start: 12-12-2023 End: 12-26-2023 COVID & INFLUENZA A/B & RSV PCR, ROUTINE COVID & INFLUENZA A/B & RSV PCR, ROUTINE Microbiology Routine Acute cough Sorethroat Expected: 12/12/2023, Expires: 12/26/2023 [facility] Work Phone: Comment on above: Expected: 12/12/2023 , Expires: 12/26/2023 Start: 12-11-2023 Covid-19 Vaccine () Covid-19 Vaccine () [facility] Start: 12-11-2023 Influenza vaccination Influenza Vacc ine (#1) [facility] Start: 08-19-2023 Patient referral [facility] Work Phone: Start: 08-19-2023 Patient discharge [facility] Start: 08-18-2023 Care planning and pr oblem solving actions [facility] Start: 08-17-2023 Following clinical pathway protocol [facility] Start: 08-17-2023 Ambulation without limitation [facility] Start: 08-17-2023 Cardiac monitoring [facility] Start: 08-17-2023 Cardiac rehabilitati on - phase 1 [facility] Start: 08-17-2023 Cardiac rehabilitati on - phase 2 [facility] Start: 08-17-2023 Notification of physician [facility] Start: 08-17-2023 Oxygen therapy [facility] Start: 08-17-2023 Patient discharge [facility] Start: 08-17-2023 Provision of activit y privileges [facility] Start: 08-17-[address] [facility] Start: 08-17-2023 Systemic arterial pressure monitoring [facility] Start: 08-17-2023 Taking patient vital signs [facility] Start: 08-17-2023 Vascular disease ris k assessment [facility] Start: 08-17-2023 Vital signs measurements [facility] Start: 08-17-2023 Admission procedure [facility] Start: 08-17-2023 Catheterization of l eft heart [facility] Start: 08-17-2023 Hospital admission, emergency, from emergency room, medical nature [facility] Start: 08-17-2023 End: 08-17-2023 [facility] Start: 08-15-2023 Patient discharge [facility] Start: 08-14-2023 End: 08-14-2023 [facility] Start: 08-14-2023 Following clinical pathway protocol [facility] Start: 08-14-2023 Ambulation without limitation [facility] Start: 08-14-2023 Assessment of risk o f venous thromboembolism [facility] Start: 08-14-2023 Insertion of cathete r into peripheral vein [facility] Start: 08-14-2023 Providing care accor ding to standard [facility] Start: 08-14-2023 Referral to ear, nos e and throat service [facility] Start: 08-14-2023 Microbial culture, routine Wound Culture [facility] Start: 08-14-2023 Microscopic observat ion [Identifier] in Unspecified specimen by Gram stain [facility] Start: 08-14-2023 Wound Culture Wound Culture [facility] Start: 08-14-2023 Verification routine [facility] Start: 08-14-2023 Admission procedure [facility] Start: 08-14-2023 Hospital admission, emergency, from emergency room, medical nature [facility] Start: 2020 RSV Vaccine (1 - 1-d ose 60+ series) RSV Vaccine (1 - 1-dose 60+ series) [facility] Start: 2015 Prostate specific an tigen measurement Prostate Cancer Screening Discussion [facility] Start: 2010 Shingrix Vaccine (1 of 2) Rubalcava grix Vaccine (1 of 2) [facility] Start: 2005 Diabetes Screening Diabetes Screenin g [facility] Start: 2005 Screening for malign ant neoplasm of colon [facility] Start: 1995 Lipid panel Lipid Screening [facility] Start: 1978 Anxiety Screening Anxiety Screening [facility] Start: 1978 Depression Screening Depression Scre ening [facility] Start: 1978 Hepatitis C screening Hepatitis C Sc reening [facility] Start: 1978 HIV screening HIV Screening [facility] Bacteria identified in Wound by Culture [facility] Lipid 1996 panel - S patsy or Plasma [facility] Patient referral [facility] Work Phone: Radionuclide imaging of perfusion of myocardium under exercise stress [facility] Immunizations Immunization Date Immunization Notes Care Provider Dariel cox 02-11-2010 tetanus and diphther ia toxoids, adsorbed, preservative free, for adult use (2 Lf of tetanus toxoid and 2 Lf of diphtheria toxoid) Ilana Sanabria APRN.CNP Work Phone: [facility] Payers Date Payer Category Payer Self-pay [id number] 2020 Unknown [employer] PPO [id number] 2020-Present [phone] [address] [place] [address] PPO [id number] 2020 Unknown [id number] 2015 Private Health Insurance [facility] [id number] 1960 Unknown [id number] Unknown [id number] Unknown [id number] Unknown [id number] Unknown [id number] Unknown [id number] Unknown [id number] Social History Date Type Detail Facility Start: 06-02-2021 End: 08-17-2023 Tobacco smoking status NVIS Unknown if ever smoked [facility] Start: 1960 Sex Assigned At Male W [facility] Start: 08-17-2023 End: 12-12-2023 Tobacco smoking status NHIS Ex-smoker [facility] History of tobacco use Current smoker [facility] History of tobacco use Cigarette Smoker [facility] Start: 12-12-2023 Cigarettes smoked current (pack per day) - Reported 1.5 [facility] History of tobacco use Passive smoker [facility] Start: 12-12-2023 Tobacco use and exposure Smokeless tobacco non-user [facility] Start: 12-12-2023 Alcoholic beverage intake Current drinker of alcohol (finding) [facility] Start: 12-12-2023 Tobacco use panel [facility] Start: 1960 Sex assigned at Not on file [facility] Medical Equipment Procedure Code Equipment Code Equipment Origin al Text Equipment Identifier Dates Drug-eluting coronary artery stent, [id number] lymer-coated [id number] FDA Start: 08-18-2023 Goals Date Patient Goal Desired Activity /State Functional Status Date Assessment Result Facility 08-19-2023 Functional status Ambulates;Up ad chauncey [facility] Work Phone: 08-15-2023 Functional status Up ad chauncey [facility] Work Phone: 12-16-2022 Functional Status Home Living Ad ditional [...] Head impulse test(quick rotation): NTVOR cancellation: NT, [id number](norm 6 cm from nose): , Ocular motor testing: visual tracking grossly intact bilat Visual acuity: 20/15 Modified CTSIB: 15% impairment 2.2 Vestibular: Laureen hallpike: - bilat [facility] Mental Status Date Assessment Result Facility 08-19-2023 Cognitive function Voice/Name [facility] Work Phone: 08-17-2023 Cognitive function Level Of Cons ciousness Awake;Alert;Appropriate [facility] Work Phone: 08-15-2023 Cognitive function Voice/Name [facility] Work Phone: Clinical Notes 11-09-2020 to 12-13-2023 Telephone Encounter - Prema Auguste RN - 12/13/2023 11:29 AM EDTTelephone Encounter - Prema Auguste RN - 12/13/2023 11:29 AM EDTCIlana livingston APRN.FURNACE RELINER - 12/12/2023 9:49 AM EDT Note Date & Type Note Facility 12-13-2023 Telephone encount er Note Pt returned call and given provider's message below with verbalized understanding. Patient agreeable. [facility] 12-13-2023 Miscellaneous Notes Formattin g of this note might be different from the original. Pt returned call and given provider's message below with verbalized understanding. Patient agreeable. You tested positive for COVID-19. You can go back to your normal activities when, for at least 24 hours, both are true: - Your symptoms are getting better overall, and - You have not had a fever (and are not using fever-reducing medication). When you go back to your normal activities, take added precaution over the next 5 days, such as taking additional steps for tower cleaner air, hygiene, masks, physical distancing, and/or testing when you will be around other people indoors. You may be eligible for antiviral treatment. Please PCP office discuss your eligibility. Please contact us if your symptoms are worsening or not improving. Please advise patient documented in this encounter [facility] 12-13-2023 Telephone encount er Note You tested positive for COVID-19. You can go back to your normal activities when, for at least 24 hours, both are true: - Your symptoms are getting better overall, and - You have not had a fever (and are not using fever-reducing medication). When you go back to your normal activities, take added precaution over the next 5 days, such as taking additional steps for tower cleaner air, hygiene, masks, physical distancing, and/or testing when you will be around other people indoors. You may be eligible for antiviral treatment. Please PCP office discuss your eligibility. Please contact us if your symptoms are worsening or not improving. Please advise patient [facility] Work Phone: 12-12-2023 History of Presen t illness Narrative Sanjeev Merida presents with three day hx of of sore throat, cough and fever. He states he feels better today and no fever. He and his just returned from [place]. He is eating and drinking well. Denies nausea, vomiting or loose stool. His also has similar symptoms. He is using Tylenol as needed. No past medical history on file. No past surgical history on file. ALLERGIES Patient has no known allergies. MEDICATIONS telmisartan (MICARDIS) 80 mg tablet atorvastatin (LIPITOR) 10 mg tablet Take 10 mg by mouth daily at bedtime. clopidogrel (PLAVIX) 75 mg tablet Take 1 tablet by mouth every afternoon. aspirin, enteric coated (ASPIRIN, ENTERIC COATED) 81 mg EC tablet Take 1 tablet by mouth every afternoon. fluticasone (FLONASE) 50 mcg/actuation nasal spray Use 2 Sprays in each nostril once daily. Rinse mouth after use. triamterene-hydrochlorothiazid e 37.5-25 mg per capsule Take 1 capsule by mouth once daily. (Patient not taking: Reported on 12/12/2023) No family history on file. Social History Tobacco Use Smoking status: Former Current packs/day: 1.50 Average packs/day: 1.5 packs/day for 23.0 years (34.5 ttl pk-yrs) Types: Cigarettes Passive exposure: Past Smokeless tobacco: Never Substance Use Topics Alcohol use: Yes Comment: weekly 5 beer average Drug use: No Review of Systems Constitutional: Positive for fever. HENT: Positive for congestion and sore throat. Respiratory: Positive for cough. All other systems reviewed and are negative. Objective Physical Exam Vitals and nursing note reviewed. Constitutional: Appearance: Normal appearance. HENT: Head: Normocephalic and atraumatic. Right Ear: Tympanic membrane, ear canal and external ear normal. Left Ear: Tympanic membrane, ear canal and external ear normal. Nose: Congestion present. Mouth/Throat: Mouth: Mucous membranes are moist. Pharynx: Oropharynx is clear. No oropharyngeal exudate or posterior oropharyngeal erythema. Eyes: Extraocular Movements: Extraocular movements intact. Conjunctiva/sclera: Conjunctivae normal. Pupils: Pupils are equal, round, and reactive to light. Cardiovascular: Rate and Rhythm: Normal rate and regular rhythm. Pulses: Normal pulses. Heart sounds: Normal heart sounds. Pulmonary: Effort: Pulmonary effort is normal. No respiratory distress. Breath sounds: Normal breath sounds. No stridor. No wheezing, rhonchi or rales. Chest: Chest wall: No tenderness. Abdominal: General: Abdomen is flat. Bowel sounds are normal. Palpations: Abdomen is soft. Musculoskeletal: General: Normal range of motion. Cervical back: Normal range of motion and neck supple. Lymphadenopathy: Cervical: No cervical adenopathy. Skin: General: Skin is warm. Capillary Refill: Capillary refill takes less than 2 seconds. Neurological: General: No focal deficit present. Mental Status: He is alert and oriented to person, place, and time. Psychiatric: Mood and Affect: Mood normal. ASSESSMENT/PLAN: 1. Acute cough - ICD9: 786.2, ICD10: R05.1 (primary diagnosis) Increase fluids Vaporizer at bedside or hot steamy shower Tea with honey 2. Sorethroat - ICD9: 462, ICD10: J02.9 - Discussed supportive care treatment with fluids, rest and analgesia. - The patient should follow up in 3-5 days if symptoms persist or worsen Ilana Sanabria APRN.MARIO ALBERTO documented in this encounter [facility] 12-12-2023 Note HNO ID: [id number] Author: ILANA SANABRIA APRN.MARIO ALBERTO Service: ? Author Type: Nurse Practitioner Type: Progress Notes Filed: 12/12/2023 09:59 Note Text: Subjective HPI Fuad presents with three day hx of of sore throat, cough and fever. He states he feels better today and no fever. He and his just returned from [place]. He is eating and drinking well. Denies nausea, vomiting or loose stool. His also has similar symptoms. He is using Tylenol as needed. No past medical history on file. No past surgical history on file. ALLERGIES Patient has no known allergies. MEDICATIONS telmisartan (MICARDIS) 80 mg tablet atorvastatin (LIPITOR) 10 mg tablet Take 10 mg by mouth daily at bedtime. clopidogrel (PLAVIX) 75 mg tablet Take 1 tablet by mouth every afternoon. aspirin, enteric coated (ASPIRIN, ENTERIC COATED) 81 mg EC tablet Take 1 tablet by mouth every afternoon. fluticasone (FLONASE) 50 mcg/actuation nasal spray Use 2 Sprays in each nostril once daily. Rinse mouth after use. triamterene-hydrochlorothiazid e 37.5-25 mg per capsule Take 1 capsule by mouth once daily. (Patient not taking: Reported on 12/12/2023) No family history on file. Social History Tobacco Use Smoking status: Former Current packs/day: 1.50 Average packs/day: 1.5 packs/day for 23.0 years (34.5 ttl pk-yrs) Types: Cigarettes Passive exposure: Past Smokeless tobacco: Never Substance Use Topics Alcohol use: Yes Comment: weekly 5 beer average Drug use: No Review of Systems Constitutional: Positive for fever. HENT: Positive for congestion and sore throat. Respiratory: Positive for cough. All other systems reviewed and are negative. Objective Physical Exam Vitals and nursing note reviewed. Constitutional: Appearance: Normal appearance. HENT: Head: Normocephalic and atraumatic. Right Ear: Tympanic membrane, ear canal and external ear normal. Left Ear: Tympanic membrane, ear canal and external ear normal. Nose: Congestion present. Mouth/Throat: Mouth: Mucous membranes are moist. Pharynx: Oropharynx is clear. No oropharyngeal exudate or posterior oropharyngeal erythema. Eyes: Extraocular Movements: Extraocular movements intact. Conjunctiva/sclera: Conjunctivae normal. Pupils: Pupils are equal, round, and reactive to light. Cardiovascular: Rate and Rhythm: Normal rate and regular rhythm. Pulses: Normal pulses. Heart sounds: Normal heart sounds. Pulmonary: Effort: Pulmonary effort is normal. No respiratory distress. Breath sounds: Normal breath sounds. No stridor. No wheezing, rhonchi or rales. Chest: Chest wall: No tenderness. Abdominal: General: Abdomen is flat. Bowel sounds are normal. Palpations: Abdomen is soft. Musculoskeletal: General: Normal range of motion. Cervical back: Normal range of motion and neck supple. Lymphadenopathy: Cervical: No cervical adenopathy. Skin: General: Skin is warm. Capillary Refill: Capillary refill takes less than 2 seconds. Neurological: General: No focal deficit present. Mental Status: He is alert and oriented to person, place, and time. Psychiatric: Mood and Affect: Mood normal. ASSESSMENT/PLAN: 1. Acute cough - ICD9: 786.2, ICD10: R05.1 (primary diagnosis) Increase fluids Vaporizer at bedside or hot steamy shower Tea with honey 2. Sorethroat - ICD9: 462, ICD10: J02.9 - Discussed supportive care treatment with fluids, rest and analgesia. - The patient should follow up in 3-5 days if symptoms persist or worsen Ilana Sanabria APRN.[facility] 08-18-2023 Progress note Note Date/Time August 18, 2023 10:18am [facility] Medical Records Department [address] [place] [address] Progress Note - Cardiology 08/18/23 1017 MR#: [id number] Acct: [id number] Name: FUAD KERR Rep #:[id number] : 1960 63 From: Sav Abrams MD PCP: Dr. David Jacobo MD Status:ADM IN Location: ICU ICU10-1 Subjective Subjective Denies any complaints. No chest pains or shortness of breath. Objective Data Vital Signs: Vital Signs Temp Pulse Resp BP Pulse Ox O2 Del Method 97.8 F 55 L 15 117/61 99 Room Air 08/18/23 08:00 08/18/23 10:00 08/18/23 10:00 08/18/23 10:00 08/18/23 10:08/18/23 10:00 Oxygen Delivery Method Room Air Weight: 195 lb 15.855 oz Body Mass Index (BMI) 28.0 Intake & Output: Intake and Output for Last 24 Hours 08/16/23 08/17/23 08/18/23 23:59 23:59 23:59 Intake Total 1000 / 1000 Balance 1000 / 1000 Lab / Micro Data 08/18/23 04:10 08/18/23 04:10 Labs: Laboratory Results - last 24 hr 08/17/23 15:33: WBC 12.1 H, RBC 4.35 L, Hgb 13.6, Hct 41.4, MCV 95.2 H, MCH 31.3, MCHC 32.9, RDW Std Deviation 40.7, RDW Coeff of Lori 11.7, Plt Count 415, MPV 9.1, Immature Gran % (Auto) 1.800 H, Neut % (Auto) 66.3, Lymph % (Auto) 21.9, Long % (Auto) 8.7, Eos % (Auto) 0.6, Baso % (Auto) 0.7, Absolute Neuts (auto) 8.0 H, Absolute Lymphs (auto) 2.66, Nucleated RBC % 0, PT 13.9, INR 1.1, APTT 23.6 L, Sodium 137, Potassium 4.4, Chloride 105, Carbon Dioxide 22.0, AnionGap 10, BUN 30 H, Creatinine 1.81 H, Estim Creat Clear Calc 46.80, Est GFR (MDRD) Af Amer 49 L, Est GFR (MDRD) Non-Af 40 L, BUN/Creatinine Ratio 16.6, Glucose 140 H, Calcium 9.3, Troponin I High Sens 100 H 08/18/23 04:10: WBC 9.8, RBC 3.76 L, Hgb 11.9 L, Hct 36.1 L, MCV 96.0 H, MCH 31.6, MCHC 33.0, RDW Std Deviation 41.7, RDW Coeff of Lori 11.9, Plt Count 313, MPV 9.1, Sodium 139, Potassium 3.6, Chloride 108 H, Carbon Dioxide 25.0, Anion Gap 6, BUN 21 H, Creatinine 1.03, Estim Creat Clear Calc 82.40, Est GFR (MDRD) Af Amer 94, Est GFR (MDRD) Non-Af 77, BUN/Creatinine Ratio 20.4 H, Glucose 99, Calcium 8.3 L, Total Bilirubin 0.50, AST 132 H, ALT 42, Alkaline Phosphatase 55,Total Protein 6.0 L, Albumin 3.1 L, Globulin 2.9, Albumin/Globulin Ratio 1.1, Triglycerides 227 H, Cholesterol 82, LDL Cholesterol 10, VLDL Cholesterol 45 H, HDL Cholesterol 27 L Cardiology Labs/Tests 08/17/23 15:33: WBC 12.1 H, RBC 4.35 L, Hgb 13.6, Hct 41.4, MCV 95.2 H, MCH 31.3, MCHC 32.9, Plt Count 415, MPV 9.1, Immature Gran % (Auto) 1.800 H, Neut % (Auto) 66.3, Lymph % (Auto) 21.9, Long % (Auto) 8.7, Eos % (Auto) 0.6, Baso % (Auto) 0.7, Absolute Neuts (auto) 8.0 H, Nucleated RBC % 0, PT 13.9, INR 1.1, APTT 23.6 L, Sodium 137, Potassium 4.4, Chloride 105, Carbon Dioxide 22.0, AnionGap 10, BUN 30 H, Creatinine 1.81 H, Est GFR (MDRD) Af Amer 49 L, Est GFR (MDRD)Non-Af 40 L, BUN/Creatinine Ratio 16.6, Glucose 140 H, Calcium 9.3 08/18/23 04:10: WBC 9.8, RBC 3.76 L, Hgb 11.9 L, Hct 36.1 L, MCV 96.0 H, MCH 31.6, MCHC 33.0, Plt Count 313, MPV 9.1, Sodium 139, Potassium 3.6, Chloride 108H, Carbon Dioxide 25.0, Anion Gap 6, BUN 21 H, Creatinine 1.03, Est GFR (MDRD) Af Amer 94, Est GFR (MDRD) Non-Af 77, BUN/Creatinine Ratio 20.4 H, Glucose 99, Calcium 8.3 L, Total Bilirubin 0.50, Triglycerides 227 H, Cholesterol 82, LDL Cholesterol 10, VLDL Cholesterol 45 H, HDL Cholesterol 27 L Rhythm: EKG: ECHO: Stress Test: Cardiac Cath: PCI: CT Surgery: Holter monitor: EPS: PPM: CXR: Chest CT Scan: Physical Exam Narrative Comfortable. No apparent distress. Heart sounds 1 and 2 noted. Chest examination reveals decreased air entry bilaterally. Alert oriented x 3. No ankle edema. Assessment & Plan Assessment/Plan (1) Acute ST elevation myocardial infarction (STEMI): PLAN: Emergent coronary angiography revealed in-stent thrombosis of the mid right posterior descending artery. Successful percutaneous revascularization was performed with balloon angioplasty and placement of 2.75 x 34 mm drug-eluting stent. Excellent results were noted with islam of WAI-3 flow. Continue aspirin lifelong. Continue clopidogrel. (2) 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 disease: PLAN: See #1 above. Aspirin, clopidogrel, statins. (3) Dyslipidemia: PLAN: Atorvastatin. (4) Essential hypertension: PLAN: Amlodipine and telmisartan. PLAN: Plan Home tomorrow if continues to be hemodynamically stable. 08/18/23 1018 <Electronically signed by Sav Abrams MD> Cosigner Signature (if applicable): CC: ~ Signed [facility] Work Phone: 1(604) 820-962205-09-2024 Progress note Author Dorene Rodriguez [facility] August 18, 2023 8:50am Note Date/Time August 18, 2023 7:25am [facility] Medical Records Department [address] [place] [id number] Progress Note - Hospitalist 08/18/23 0710 MR#: [id number] Acct: [id number] Name: FUAD KERR Rep #:[id number] : 1960 63 From: Dorene Rodriguez DO PCP: Dr. David Jacobo MD Status:ADM IN Location: ICU ICU-1 Reason for Visit Reason for Visit: Chest pain Subjective Subjective Mr. Kerr is a 63-year-old white male who presented to the emergency department at [facility] on 08/17/2023 with chest pain that started about an hour prior to presentation. He was out doing some yard work and started having symptoms. He reported his chest pain was pressure-like and radiated to his left shoulder and jaw and it was associated with some mild diaphoresis. He denied any nausea or vomiting and he denied shortness of breath. Patient had previously been on Plavix but had not taken his Plavix in about 5 days as he was scheduled to have a breast biopsy. His last stent was placed in 2020. He had a recent admission here at which time he was found to have a peritonsillar abscess for which an aspiration was done by ENT and he clinically improved and was discharged on oral antibiotics. Vital signs on presentation showed a temperature of 98.6, heart rate 72, respiratory 16, blood pressure was 184/116, pulse ox was 96% on room air. CBC showed a mild leukocytosis with a white count of 12.1 but was otherwise unremarkable. Coags were unremarkable. Chemistry panel showed JOHNNA with a serum creatinine of 1.81 and a BUN of 30 with a baseline serum creatinine of 0.8-1.0. His glucose on presentation was 140. Initial troponin was 100. On admission actual cholesterol panel was obtained and his total cholesterol was 82 with an LDL of 10 and HDL of 27 and a triglyceride level of 227. He was taken emergently to the Compliance And Control Analyst and this revealed in-stent thrombosis in the mid right posterior descending artery for which successful percutaneous revascularization was performed with balloon angioplasty and placement of 1 drug-eluting stent with results showing WAI-3 flow. Patient states he is feeling well right now. Has no complaints. Did have some nasal bleeding overnight. He was hit in the face with a log while he was out working prior to coming in. He blew his nose with a large bloody clot and then some head pain that he was having resolved. He had no further issues since thatpoint in time. Was anxious to go home today however I did discuss with him the reason behind him staying another 24 hours and he voiced understanding. Objective Data Objective Data Vital Signs: Vital Signs Temp Pulse Resp BP Pulse Ox O2 Del Method 97.6 F L 52 L 13 150/58 H 91 Room Air 08/18/23 05:00 08/18/23 07:00 08/18/23 07:00 08/18/23 07:00 08/18/23 07:00 08/18/23 07:00 Oxygen Delivery Method Room Air Weight: 88.9 kg Body Mass Index (BMI) 28.0 Intake & Output: Intake and Output for Last 24 Hours 08/16/23 08/17/23 08/18/23 23:59 23:59 23:59 Intake Total 1000 / 1000 Balance 1000 / 1000 Lab / Micro Data 08/18/23 04:10 08/18/23 04:10 Labs: Laboratory Results - last 24 hr 08/17/23 15:33: WBC 12.1 H, RBC 4.35 L, Hgb 13.6, Hct 41.4, MCV 95.2 H, MCH 31.3, MCHC 32.9, RDW Std Deviation 40.7, RDW Coeff of Lori 11.7, Plt Count 415, MPV 9.1, Immature Gran % (Auto) 1.800 H, Neut % (Auto) 66.3, Lymph % (Auto) 21.9, Long % (Auto) 8.7, Eos % (Auto) 0.6, Baso % (Auto) 0.7, Absolute Neuts (auto) 8.0 H, Absolute Lymphs (auto) 2.66, Nucleated RBC % 0, PT 13.9, INR 1.1, APTT 23.6 L, Sodium 137, Potassium 4.4, Chloride 105, Carbon Dioxide 22.0, AnionGap 10, BUN 30 H, Creatinine 1.81 H, Estim Creat Clear Calc 46.80, Est GFR (MDRD) Af Amer 49 L, Est GFR (MDRD) Non-Af 40 L, BUN/Creatinine Ratio 16.6, Glucose 140 H, Calcium 9.3, Troponin I High Sens 100 H 08/18/23 04:10: WBC 9.8, RBC 3.76 L, Hgb 11.9 L, Hct 36.1 L, MCV 96.0 H, MCH 31.6, MCHC 33.0, RDW Std Deviation 41.7, RDW Coeff of Lori 11.9, Plt Count 313, MPV 9.1, Sodium 139, Potassium 3.6, Chloride 108 H, Carbon Dioxide 25.0, Anion Gap 6, BUN 21 H, Creatinine 1.03, Estim Creat Clear Calc 82.40, Est GFR (MDRD) Af Amer 94, Est GFR (MDRD) Non-Af 77, BUN/Creatinine Ratio 20.4 H, Glucose 99, Calcium 8.3 L, Total Bilirubin 0.50, AST 132 H, ALT 42, Alkaline Phosphatase 55,Total Protein 6.0 L, Albumin 3.1 L, Globulin 2.9, Albumin/Globulin Ratio 1.1, Triglycerides 227 H, Cholesterol 82, LDL Cholesterol 10, VLDL Cholesterol 45 H, HDL Cholesterol 27 L Physical Exam Const alert, oriented x3, no apparent distress and well nourished Constitutional Narrative: Overweight, upper middle-aged, white male, lying in bed, appears comfortable andnontoxic HEENT head/scalp atraumatic and moist oral mucous membranes HEENT Narrative: Few scratches on nose and forehead Resp normal respiratory effort, no retractions, no use of accessory muscles and clearto auscultation bilaterally Auscultation: Negative for rales, rhonchi or wheezes Cardio regular rate, regular rhythm, S1 normal heart sound, S2 normal heart sound, no murmurs, no rub, no gallops and no clicks GI normal to inspection, nondistended, normoactive bowel sounds, soft to palpation and non-tender Extremity no clubbing, cyanosis or edema Extremity Narrative: Pedal pulses are 2+ Neuro oriented x3, moves all extremities and no focal motor deficits Sensorium / Orientation: awake, alert, oriented to person, oriented to place andoriented to time Speech: speech normal Psych affect normal Psych Narrative: Extremely pleasant, eye contact is good, patient interacts appropriately Assessment & Plan Assessment/Plan (1) Acute ST elevation myocardial infarction (STEMI): (2) Abscess, peritonsillar: (3) Breast mass, right: PLAN: Plan Acute inferior STEMI -In-stent thrombosis found from 2020 cardiac catheterization with BELKYS to mid RPDA placed in Compliance And Control [facility]st on admission -Previous stent was placed in 2020 -Plavix and aspirin had been on hold due to intervention with breast biopsy and recent abscess drainage for peritonsillar abscess -Echocardiogram is pending -continue aspirin -Continue Plavix -Continue Cozaar -Continue home atorvastatin--> LDL is 10 -Check hemoglobin A1c--> patient had been on recent steroids for his peritonsillar abscess -Cardiology following-appreciate input Recent right peritonsillar abscess -Continue Augmentin--> stop date is 08/27/2023 -Follow-up with Dr. Mujica as previously recommended Right breast mass -Biopsy performed on 08/16/2023 -Ultrasound was performed and gave a BI-RADS 4 in the retroareolar area -Pathology remains pending CAD -Previous PCI with last stent placed in 2020 -Plavix and aspirin had been on hold for breast biopsy and status post drainage of peritonsillar abscess -Treatment as above Hypertension -Patient is on amlodipine and telmisartan at baseline -Continue amlodipine -Continue ARB -as needed hydralazine HPL -Lipids are well-controlled on current regimen -Continue home statin -LDL is 10 Suspected COPD -Patient was CAT scan that showed emphysematous changes -No current issues DVT prophylaxis -Continue Lovenox CODE STATUS -Full code Charges/Coding Visit Charges Inpatient E&M: 84047 Subs Hosp L2 08/18/23 0850 <Electronically signed by Dorene Rodriguez DO> Cosigner Signature (if applicable): CC: ~ Signed [facility] Work Phone: [phone]) 267-858305-09-2024 Discharge summary Author David Myers [facility] August 18, 2023 12:34am Note Date/Time August 17, 2023 3:52pm [facility] Medical Records Department [address] [place] [address] Emergency Department Summary 08/17/23 MR#: [id number] Acct: [id number] Name: FUAD KERR Rep #:[id number] : 1960 63 From: David Walker PCP: Dr. David Jacobo MD Status:ADM IN Location: ICU ICU10-1 HPI History of Present Illness Chief Complaint: Chest Pain Informant: patient Onset/Context/Timing Onset: Today and Hours (1) Activity at onset: sudden Timing: Continuous Quality: Positive for Tightness Location: Substernal Worsened By: Nothing Relieved By: Nothing Associated Symptoms: Positive for Diaphoresis; Negative for Nausea, Vomiting, Dyspnea, Cough, Fever, Lightheadedness, Acid Reflux or Palpitations Narrative Narrative: Patient presents with chest pain that began approximately 1 hour prior to arrival. Patient states he was doing some yard work outside when the pain began. Patient describes it as a tightness across his chest. Patient states itradiates into his shoulder and into his jaw. Patient admits to some mild diaphoresis. Patient denies any nausea or vomiting. Patient denies any shortness of breath. Patient states he is normally on Plavix but has not taken Plavix in the last 5 days because he had a abscess drained as well as a breast biopsy recently. CVD Risk Factors: Positive for Hypertension [facility] Medical History Abnormal stress test Angina pectoris Atherosclerotic heart disease of [place] coronary artery without angina pectoris Breast mass, right Essential hypertension History of left heart catheterization (LHC) (~12/29/21) HLD (hyperlipidemia) Myalgia Presence of stent in coronary artery (~11/15/20) Psoriasis Psoriatic arthritis Smoker SOB (shortness of breath) STEMI (ST elevation myocardial infarction) Tobacco abuse Home Medications aspirin 81 mg tablet,delayed release 81 mg PO DAILY #90 tabs 12/10/22 [Rx Last Taken Unknown] clopidogrel 75 mg tablet 75 mg PO DAILY #90 tabs 01/04/23 [Rx Last Taken Unknown] telmisartan 80 mg tablet 80 mg PO DAILY #90 tabs 01/04/23 [Rx Last Taken 08/13/23] amlodipine 5 mg tablet 5 mg PO DAILY #90 tabs 08/02/23 [Rx Last Taken 08/13/23] atorvastatin 10 mg tablet 10 mg PO QHS #90 tabs 08/02/23 [Rx Last Taken 08/13/23] clobetasol 0.05 % topical cream 1 applic topical DAILY PRN KNEE IRRITATION 08/14/23 [History Last Taken Unknown] amoxicillin 875 mg-potassium clavulanate 125 mg tablet 1 tab PO BID #24 tabs 08/15/23 [Rx Last Taken Unknown] Allergy/AdvReac Type Severity Reaction Status Date / Time isosorbide AdvReac Intermediate Dizzy, Verified 08/17/23 15:47 lightheaded, short of breath lisinopril AdvReac Intermediate dry Verified 08/17/23 15:47 persistent cough Family History Mother Thyroid disorder Surgical History History of coronary artery stent placement Presence of coronary angioplasty implant and graft (~11/15/20) Social History Smoking Status: Former smoker Tobacco: How many years used: 42 how long ago did patient quit smokin months alcohol intake: current details: occassional substance use type: does not use caffeine: Yes Type: coffee Number of servings: 1 ROS ROS ED Constitutional Constitutional ED: Reports sweats; Denies chills or fever(s) Eyes Eyes: Denies blurry vision or change in vision ENT ENT ED: Denies rhinorrhea or sore throat Cardiovascular Cardiovascular: Reports chest pain; Denies palpitations Respiratory/Chest Respiratory/Chest: Denies cough or dyspnea Gastrointestinal Gastrointestinal: Denies abdominal pain, nausea or vomiting Genitourinary Genitourinary ED: Denies dysuria or hematuria Musculoskeletal Musculoskeletal: Denies back pain or neck pain Integumentary Denies abscess or rash Neurologic Neurologic: Denies headache(s) or weakness Allergic/Immunologic Allergic/Immunologic ED: Denies mouth swelling or urticaria EXAM Physical Exam Const Positive well nourished and well developed General Appearance ED: well developed and NAD HEENT Reports moist mucous membranes Neck supple and no JVD Resp normal respiratory effort and clear to auscultation bilaterally Cardio regular rate and regular rhythm GI soft to palpation, non-tender and non-distended Neuro oriented x3, CN's II-XII intact bilaterally and no sensory deficits noted Sensorium / Orientation: awake and alert Motor Exam: strength 5/5 throughout Psych mental status grossly normal Heart Score History: Highly Suspicious ECG: Significant ST-Depression Age: >45 - <65 years Risk Factors: >/= 3 Risk Factors or History of CAD Score: 7 MDM MDM MDM Narrative Medical decision making narrative: Prehospital STEMI was called. Case was discussed with Dr. Abrams, cardiac interventionalist. He will see the patient in the [facility]iance [facility] Control [facility]. Patient was given aspirin, heparin, and Brilinta. Compliance And Control Analyst was ready and the patient was taken there. EKG was obtained to assess for cardiac dysrhythmia and cardiac ischemia. CBC was obtained to assess for leukocytosis and anemia. Basic metabolic profile was obtained to assess for electrolyte abnormality and renal function. PT with INR and PTT were obtained to assess for coagulopathy. High-sensitivity troponin was obtained to assess for cardiac ischemia. EKG Initial EKG: Attestation: I personally reviewed and interpreted this EKG as follows: Interpretation: Sinus Rhythm (73), S-T Elevation (II, III, and aVF) and S-T Depression (I, aVL, V2, V3, V4, V5.) Comments: EKG was obtained. On my independent interpretation, it shows normal sinus rhythm with a rate of 73. NV interval was normal at 168 ms. QRS interval was normal at 90 ms. QTc interval was normal at 398 ms. Onaway was normal at 66. There is ST elevation in leads II, III, and aVF. There are reciprocal changes in leads I, aVL, and V2 through V5. Prior EKG tracings: available for review Prior: Changed (The ST elevation is new compared to previous EKG dated 11/18/2021) Management Discussion w/another healthcare provider: Hospitalist and Lockstitch Topstitcher Treatment and Re-Evaluation :: Patient was prepped for Compliance And Control Analyst in the emergency department. Patient was transferred to the Compliance And Control Analyst. Case was discussed with the hospitalist. She willadmit the patient to her service after patient goes to the Compliance And Control Analyst. Patient understood and was agreeable with the plan. All questions were answered. Discharge Plan Triage Chief Complaint: Chest Pain ED Provider: David Myers Dx/Rx/DC Orders Clinical Impression: Acute ST elevation myocardial infarction (STEMI), Essential hypertension Prescriptions: No Action aspirin 81 mg tablet,delayed release (DR/EC) 81 mg PO DAILY Qty: 90 3RF Hold Instructions: Do not start until instructed by Dr. Mujica atorvastatin 10 mg tablet 10 mg PO QHS Qty: 90 3RF amlodipine 5 mg tablet 5 mg PO DAILY Qty: 90 3RF clobetasol 0.05 % cream 1 applic topical DAILY PRN (Reason: KNEE IRRITATION) amoxicillin-pot clavulanate 875-125 mg tablet 1 tab PO BID Qty: 24 0RF telmisartan 80 mg tablet 80 mg PO DAILY Qty: 90 3RF clopidogrel 75 mg tablet 75 mg PO DAILY Qty: 90 3RF Hold Instructions: Do not start until instructed to do so by Dr. Mujica Primary Care Provider: David Jacobo Referrals: David Jacobo MD [Primary Care Provider] - Disposition Disposition: Acute Care Hospital [facility] What to do if you have Problems For any increased pain, shortness of breath, bleeding, nausea or vomiting, chestpain, or any unexpected problems, contact your Primary Care Provider. Call [facility] ([phone]) or report to the closest Emergency Room. Call 911 if necessary. 08/18/2333 <Electronically signed by David Myers DO> Cosigner Signature (if applicable): CC: Dr. David Jacobo MD ~ Signed [facility] Work Phone: 1(920) 909-614905-08-2024 History and physical note Author Conchita Ty [facility] August 17, 2023 6:52pm Note Date/Time August 17, 2023 3:46pm [facility] Medical Records Department [address] [place] [address] History & Physical Exam 08/17/23 1546 MR#: [id number] Acct: [id number] Name: FUAD KERR Rep #:[id number] : 1960 63 From: Conchita Ty MD PCP: Dr. David Jacobo MD Status:ADM IN Location: ICU ICU10-1 HPI - General General Date of Admission: 08/17/23 Date of Service: 08/17/23 Chief Complaint: chest pain HPI Narrative FUAD KERR, is a 63 M with a PMH with a PMH as outlined who was admitted viathe ED on 08/17/2023 with a complaint of chest pain which started about an hour prior to him coming in. He was out doing some yard work and started having chestpain. The chest pain was pressure-like and radiated to his shoulder and his jawhe had associated mild sweating. He denied any nausea vomiting or shortness of breath. Patient was post to be on Plavix but not taking his Plavix about 5 daysas he said he was post to have a breast biopsy done and had also had an abscess drained. Previous times otherwise negative. EMS was called and EKG done by EMSshowed inferior ST elevation DC. STEMI alert was called. Patient was given aspirin and heparin as well as Brilinta in the ED and he was sent emergently to the Compliance And Control Analyst for cardiac catheterization. Patient was seen in the ICU after cardiac cath. His was by his bedside. He had no active complaints. He felt much better. Vitals were stable. Review of systems otherwise negative. CBC showed hemoglobin of 13.6 with platelets of 415and WBC of 12.1. INR was 1.1. Chemistry was significant for creatinine of 1.81and initial troponin of 100 glucose of 140. He has been admitted to be managed for acute ST elevation DC. [facility] Medical History Abnormal stress test Angina pectoris Atherosclerotic heart disease of [place] coronary artery without angina pectoris Breast mass, right Essential hypertension History of left heart catheterization (LHC) (~12/29/21) HLD (hyperlipidemia) Myalgia Presence of stent in coronary artery (~11/15/20) Psoriasis Psoriatic arthritis Smoker SOB (shortness of breath) STEMI (ST elevation myocardial infarction) Tobacco abuse Home Medications aspirin 81 mg tablet,delayed release 81 mg PO DAILY #90 tabs 12/10/22 [Rx Last Taken Unknown] clopidogrel 75 mg tablet 75 mg PO DAILY #90 tabs 01/04/23 [Rx Last Taken Unknown] telmisartan 80 mg tablet 80 mg PO DAILY #90 tabs 01/04/23 [Rx Last Taken 08/16/23] amlodipine 5 mg tablet 5 mg PO DAILY #90 tabs 08/02/23 [Rx Last Taken 08/16/23] atorvastatin 10 mg tablet 10 mg PO QHS #90 tabs 08/02/23 [Rx Last Taken 08/16/23] clobetasol 0.05 % topical cream 1 applic topical DAILY PRN KNEE IRRITATION 08/14/23 [History Last Taken Unknown] amoxicillin 875 mg-potassium clavulanate 125 mg tablet 1 tab PO BID #24 tabs 08/15/23 [Rx Last Taken 08/17/23] Allergy/AdvReac Type Severity Reaction Status Date / Time isosorbide AdvReac Intermediate Dizzy, Verified 08/17/23 15:47 lightheaded, short of breath lisinopril AdvReac Intermediate dry Verified 08/17/23 15:47 persistent cough Family History Mother Thyroid disorder Surgical History History of coronary artery stent placement Presence of coronary angioplasty implant and graft (~11/15/20) Social History Smoking Status: Former smoker Tobacco: How many years used: 42 how long ago did patient quit smokin months alcohol intake: current details: occassional substance use type: does not use caffeine: Yes Type: coffee Number of servings: 1 ROS Review of Systems ROS Unobtainable: Denies due to encephalopathy Constitutional Constitutional: Denies anorexia, chills, fatigue, fever(s), malaise or weakness Eyes Eyes: Denies change in vision ENT HEENT: Denies dysphagia or headache(s) Cardiovascular Cardiovascular: Reports chest pain; Denies edema, orthopnea, palpitations, paroxysmal nocturnal dyspnea or syncope Respiratory/Chest Respiratory/Chest: Denies cough, shortness of breath at rest or shortness of breath with exertion Gastrointestinal Gastrointestinal: Denies abdominal pain, constipation, nausea or vomiting Genitourinary Genitourinary: Denies dysuria Neurologic Neurologic: Denies confusion, dizziness, focal weakness, headache(s), lack of coordination or numbness Psychiatric Psychiatric: Denies anxiety Vital Signs Vital Signs Vital Signs: 08/17/23 15:39 Temperature 98.6 F Temperature Source Temporal Pulse Rate 72 Respiratory Rate 16 Blood Pressure 184/116 H Blood Pressure Mean 138 Pulse Ox 96 Oxygen Delivery Method Room Air Weight Weight: 195 lb 1.745 oz Body Mass Index (BMI) 28.0 Physical Exam Const alert, oriented x3, no apparent distress and well nourished General Appearance: cooperative and well developed HEENT normocephalic, head/scalp atraumatic, moist oral mucous membranes and oropharynxnormal Mouth: dry mucous membranes Eyes PERRL and EOMs intact bilaterally Neck no lymphadenopathy and supple Lymph Lymphatic: no lymphadenopathy noted and no lymphedema noted Resp normal respiratory effort, normal air movement and clear to auscultation bilaterally Cardio regular rate, regular rhythm, S1 normal heart sound, S2 normal heart sound and no murmurs GI normal to inspection, nondistended, normoactive bowel sounds, soft to palpation,non-tender and non-distended Extremity normal capillary refill, no clubbing, cyanosis or edema and no calf tenderness General Extremity: no tenderness to palpation of joints or extremities Skin Skin Narrative: has intact dressing over right breast, at site of breast biopsy 1 day ago Neuro CN's II-XII intact bilaterally, no focal motor deficits, no sensory deficits noted and deep tendon reflexes 2+ bilaterally Motor Exam: strength 5/5 throughout Psych thought process normal, cooperative and affect normal Appearance: appropriate Results Lab / Micro Data 08/17/23 15:33 08/17/23 15:33 Assessment & Plan Assessment/Plan (1) Acute ST elevation myocardial infarction (STEMI): PLAN: Plan #Acute inferior STEMI * admitted with a complaint of chest pain and found to have inferior STEMI * EKG showed acute ST elevation in inferior leads * [facility] emerg[facility] where cardiac cath showed 100% in-stent thrombosis of the mid right proximal diagonal artery and LVEF of 60%. He had successful PTCA with drug-eluting stent insertion to the mid right proximal diagonal artery. * Patient had stopped taking his Plavix about 5 days prior to admission impression for the breast biopsy he had yesterday. To be on aspirin indefinitely and to be on Plavix for at least 12 months. High intensity statin. * 2D echo ordered for tomorrow. * cardiology on board * # Hypertension: On amlodipine and telmisartan. IV hydralazine as needed. #History of CAD s/p stents: * had drug-eluting stents to the mid RCA and mid right PDA in 2020. * Was on Plavix and statin plus aspirin. Stop taking the Plavix about 5 days prior as stated above. * Now presenting with ST elevation DC. Management as above. * * #Right breast mass: S/p breast biopsy 1 day ago. Follow-up with general surgeryfor biopsy results. #Recent peritonsillar abscess: was admittted and had aspiration done by ENT. Currently on Augmentin. To complete course. DVT prophylaxis * lovenox * CODE STATUS: Full code * Patient counseled extensively about different types of CODE STATUS including full code, DNR CCA and DNR CCA. Patient elects to be full code. * Total uwaj-nd-ffoc time 17 minutes. Charges/Coding Visit Charges Inpatient E&M: 41442 Init Hosp L3 Procedures Hospitalists Procedures: 41198 Advncd Care Plan 30 Min 08/17/23 1852 <Electronically signed by Conchita Ty MD> Cosigner Signature (if applicable): CC: Dr. David Jacobo MD; Dr. Conchita Ty MD~ Signed [facility] Work Phone: [phone]) 396-780005-08-2024 Consult note Author Sav Abrams [facility] August 17, 2023 5:04pm Note Date/Time August 17, 2023 5:03pm [facility] Medical Records Department [address] [place] [address] Consultation - Cardiology 08/17/23 1657 MR#: [id number] Acct: [id number] Name: RANDEEFUAD Prema Rep #:[id number] : 1960 63 From: Sav Abrams MD PCP: Dr. David Jacobo MD Status:ADM IN Location: ICU ICU10-1 Assessment & Plan Assessment/Plan (1) Acute ST elevation myocardial infarction (STEMI): PLAN: Emergent coronary angiography revealed in-stent thrombosis of the mid right posterior descending artery. Successful percutaneous revascularization was performed with balloon angioplasty and placement of 2.75 x 34 mm drug-eluting stent. Excellent results were noted with islam of WAI-3 flow. Continue aspirin lifelong. Continue clopidogrel. (2) 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 disease: PLAN: See #1 above. Aspirin, clopidogrel, statins. (3) Dyslipidemia: PLAN: Atorvastatin. (4) Essential hypertension: PLAN: Amlodipine and telmisartan. HPI Consult Data Date of Consult: 08/17/23 HPI Narrative Reason for Consultation: STEMI HPI Narrative: This gentleman has past medical history significant for coronary artery disease status post drug-eluting stents to the mid RCA and mid right PDA in 2020. Also history of dyslipidemia and hypertension. Per patient, he recently stopped taking his aspirin and clopidogrel for his breast biopsy procedure and drainage of nava-tonsillar abscess. This afternoon he developed chest discomfort. EMS was called. An ECG was done in the field which showed acute inferior ST elevation myocardial infarction. Subsequently a STEMI alert was called. [facility] Medical History Abnormal stress test Angina pectoris Atherosclerotic heart disease of [place] coronary artery without angina pectoris Breast mass, right Essential hypertension History of left heart catheterization (LHC) (~12/29/21) HLD (hyperlipidemia) Myalgia Presence of stent in coronary artery (~11/15/20) Psoriasis Psoriatic arthritis Smoker SOB (shortness of breath) STEMI (ST elevation myocardial infarction) Tobacco abuse Home Medications aspirin 81 mg tablet,delayed release 81 mg PO DAILY #90 tabs 12/10/22 [Rx Last Taken Unknown] clopidogrel 75 mg tablet 75 mg PO DAILY #90 tabs 01/04/23 [Rx Last Taken Unknown] telmisartan 80 mg tablet 80 mg PO DAILY #90 tabs 01/04/23 [Rx Last Taken 08/13/23] amlodipine 5 mg tablet 5 mg PO DAILY #90 tabs 08/02/23 [Rx Last Taken 08/13/23] atorvastatin 10 mg tablet 10 mg PO QHS #90 tabs 08/02/23 [Rx Last Taken 08/13/23] clobetasol 0.05 % topical cream 1 applic topical DAILY PRN KNEE IRRITATION 08/14/23 [History Last Taken Unknown] amoxicillin 875 mg-potassium clavulanate 125 mg tablet 1 tab PO BID #24 tabs 08/15/23 [Rx Last Taken Unknown] Allergy/AdvReac Type Severity Reaction Status Date / Time isosorbide AdvReac Intermediate Dizzy, Verified 08/17/23 15:47 lightheaded, short of breath lisinopril AdvReac Intermediate dry Verified 08/17/23 15:47 persistent cough Family History Mother Thyroid disorder Surgical History History of coronary artery stent placement Presence of coronary angioplasty implant and graft (~11/15/20) Social History Smoking Status: Former smoker Tobacco: How many years used: 42 how long ago did patient quit smokin months alcohol intake: current details: occassional substance use type: does not use caffeine: Yes Type: coffee Number of servings: 1 Physical Exam Narrative Comfortable. No apparent distress. Heart sounds 1 and 2 noted. Chest examination reveals decreased air entry bilaterally. Alert oriented x 3. No ankle edema. Risk Stratification Risk Stratification Applicable: No Objective Data Vital Signs: Vital Signs Temp Pulse Resp BP Pulse Ox O2 Del Method 98.6 F 72 16 184/116 H 96 Room Air 08/17/23 15:45 08/17/23 15:45 08/17/23 15:45 08/17/23 15:45 08/17/23 15:59 08/17/23 15:59 Oxygen Delivery Method Room Air Weight: 195 lb 1.745 oz Body Mass Index (BMI) 28.0 Lab / Micro Data 08/17/23 15:33 08/17/23 15:33 Labs: Laboratory Results - last 24 hr 08/17/23 15:33: WBC 12.1 H, RBC 4.35 L, Hgb 13.6, Hct 41.4, MCV 95.2 H, MCH 31.3, MCHC 32.9, RDW Std Deviation 40.7, RDW Coeff of Lori 11.7, Plt Count 415, MPV 9.1, Immature Gran % (Auto) 1.800 H, Neut % (Auto) 66.3, Lymph % (Auto) 21.9, Long % (Auto) 8.7, Eos % (Auto) 0.6, Baso % (Auto) 0.7, Absolute Neuts (auto) 8.0 H, Absolute Lymphs (auto) 2.66, Nucleated RBC % 0, PT 13.9, INR 1.1, APTT 23.6 L, Sodium 137, Potassium 4.4, Chloride 105, Carbon Dioxide 22.0, AnionGap 10, BUN 30 H, Creatinine 1.81 H, Estim Creat Clear Calc 46.80, Est GFR (MDRD) Af Amer 49 L, Est GFR (MDRD) Non-Af 40 L, BUN/Creatinine Ratio 16.6, Glucose 140 H, Calcium 9.3, Troponin I High Sens 100 H Cardiology Labs/Tests 08/17/23 15:33: WBC 12.1 H, RBC 4.35 L, Hgb 13.6, Hct 41.4, MCV 95.2 H, MCH 31.3, MCHC 32.9, Plt Count 415, MPV 9.1, Immature Gran % (Auto) 1.800 H, Neut % (Auto) 66.3, Lymph % (Auto) 21.9, Long % (Auto) 8.7, Eos % (Auto) 0.6, Baso % (Auto) 0.7, Absolute Neuts (auto) 8.0 H, Nucleated RBC % 0, PT 13.9, INR 1.1, APTT 23.6 L, Sodium 137, Potassium 4.4, Chloride 105, Carbon Dioxide 22.0, AnionGap 10, BUN 30 H, Creatinine 1.81 H, Est GFR (MDRD) Af Amer 49 L, Est GFR (MDRD)Non-Af 40 L, BUN/Creatinine Ratio 16.6, Glucose 140 H, Calcium 9.3 Rhythm: EKG: ECG done in the emergency room showed changes consistent with acute inferior ST elevation myocardial infarction. ECHO: Stress Test: Cardiac Cath: PCI: CT Surgery: Holter monitor: EPS: PPM: CXR: Chest CT Scan: 08/17/23 9792 <Electronically signed by Sav Abrams MD> Cosigner Signature (if applicable): CC: Dr. David Jacobo MD~ Signed [facility] Work Phone: 1(754) 186-801805-06-2024 Progress note Author Cisco Lincoln [facility] August 15, 2023 8:39am Note Date/Time August 15, 2023 8:39am [facility] Medical Records Department [address] [place] [address] Progress Note 08/15/23 0836 MR#: [id number] Acct: [id number] Name: FUAD KERR Rep #:[id number] : 1960 63 From: Cisco Lincoln MD PCP: Dr. David Jacobo MD Status:ADM IN Location: [place] [address] Progress Note The patient is feeling better today. His right ear pain is gone. His throat is still scratchy but 150% better AVss wbc =12 PE: voice normal uvula still with leftward shift. The peritonsillar area is still edematous but less so. Expression of the are did not reveal any purulence through the aspiration hole which is still open. A: Right peritonsillar abscess, much improved P: Continue abx. Discharge per primary team. Continue oral antibiotics on discharge. Follow up next week. 08/15/23 0839 <Electronically signed by Cisco Lincoln MD> Cisco Lincoln MD Cosigner Signature (if applicable): CC: ~ Signed [facility] Work Phone: [phone] Discharge summary Author Nydia Rivers [facility] August 14, 2023 7:16pm Note Date/Time August 14, 2023 10:18a m [facility] Medical Records Department [address] [place] [address] Emergency Department Summary 08/14/23 MR#: [id number] Acct: [id number] Name: FUAD KERR Rep #:[id number] : 1960 63 From: Nydia Rivers MD PCP: Dr. David Jacobo MD Status:ADM IN Location: [place] [address] HPI History of Present Illness Chief Complaint: Sore Throat Informant: patient Onset/Context/Timing Onset: Days (5 days) Context: Gradual Onset Narrative Narrative: Patient presents secondary to right ear and right throat pain for the past 5 days. He was on vacation in [place] at the time of onset. He had subjective fevers at the time but no way of checking his temperature. [facility] and diagnosed with strep pharyngitis. No swab was performed. Patient was started on prednisone and Pen-Vee K. Patient had increased pain and swelling today and presents to the emergency room. [facility] Medical History Abnormal stress test Angina pectoris Atherosclerotic heart disease of [place] coronary artery without angina pectoris Breast mass, right Essential hypertension History of left heart catheterization (LHC) (~12/29/21) HLD (hyperlipidemia) Myalgia Presence of stent in coronary artery (~11/15/20) Psoriasis Psoriatic arthritis Smoker SOB (shortness of breath) STEMI (ST elevation myocardial infarction) Tobacco abuse Home Medications aspirin 81 mg tablet,delayed release 81 mg PO DAILY #90 tabs 12/10/22 [Rx Last Taken Unknown] clopidogrel 75 mg tablet 75 mg PO DAILY #90 tabs 01/04/23 [Rx Last Taken Unknown] telmisartan 80 mg tablet 80 mg PO DAILY #90 tabs 01/04/23 [Rx Last Taken Unknown] amlodipine 5 mg tablet 5 mg PO DAILY #90 tabs 08/02/23 [Rx Last Taken Unknown] atorvastatin 10 mg tablet 10 mg PO QHS #90 tabs 08/02/23 [Rx Last Taken Unknown] penicillin V potassium 500 mg tablet 500 mg PO BID 10 days #20 tabs 08/13/23 [Rx Last Taken Unknown] prednisone 20 mg tablet 40 mg (2 x 20 mg) PO DAILY 3 days #6 tabs 08/13/23 [Rx Last Taken Unknown] Allergy/AdvReac Type Severity Reaction Status Date / Time isosorbide AdvReac Intermediate Dizzy, Verified 08/14/23 09:05 lightheaded, short of breath lisinopril AdvReac Intermediate dry Verified 08/14/23 09:05 persistent cough Family History Mother Thyroid disorder Surgical History Presence of coronary angioplasty implant and graft (~11/15/20) Social History Smoking Status: Former smoker Tobacco: How many years used: 42 how long ago did patient quit smokin months alcohol intake: current details: occassional substance use type: does not use caffeine: Yes Type: coffee Number of servings: 1 ROS ROS ED Constitutional Constitutional ED: Reports fever(s) and subjective; Denies chills Eyes Eyes: Denies change in vision or discharge from eye(s) ENT ENT ED: Reports ear pain right and sore throat; Denies discharge from eye(s) or rhinorrhea Cardiovascular Cardiovascular: Denies chest pain or palpitations Respiratory/Chest Respiratory/Chest: Denies cough or dyspnea Gastrointestinal Gastrointestinal: Denies abdominal pain, nausea or vomiting Musculoskeletal Musculoskeletal: Denies back pain or extremity pain Integumentary Denies Abrasions or rash Neurologic Neurologic: Denies headache(s) or weakness Psychiatric Psychiatric: Denies anxiety or depression Allergic/Immunologic Allergic/Immunologic ED: Denies lip swelling or urticaria EXAM Physical Exam Narrative Exam Narrative: Head of bed elevated approximate 40 degrees. Patient tolerating secretions and speaks with a strong voice. Const Vital Signs: 08/14/23 09:06 Temperature 97.1 F L Temperature Source Temporal Pulse Rate 73 Respiratory Rate 18 Blood Pressure 135/75 H Blood Pressure Mean 95 Pulse Ox 93 Oxygen Delivery Method Room Air Positive well nourished and well developed General Appearance ED: well developed HEENT Reports moist mucous membranes HEENT Narrative: Right tonsillar and soft palate edema. Mild deviation of the uvula to the left. Right TM visualized and clear. Cerumen noted in the canal. Eyes PERRL and EOMs intact bilaterally Neck Neck Narrative: Mild cervical lymphadenopathy. Chest Wall inspection of chest normal and palpation of chest normal Resp normal respiratory effort and clear to auscultation bilaterally Cardio regular rate and regular rhythm GI non-tender Palpation: soft Extremity normal to inspection Neuro oriented x3 and no sensory deficits noted Motor Exam: strength 5/5 throughout Psych mental status grossly normal Skin no rashes or lesions noted MDM MDM MDM Narrative Medical decision making narrative: IV line established. Labwork obtained to evaluate for leukocytosis, anemia, andelectrolyte derangement. CT of the soft tissue neck with IV contrast obtained to evaluate for tonsillar abscess. Strep swab obtained. History & Record Review Discussion w/independent historian: Patient and Family Lab Data Attestation: I reviewed the patient's lab results. Labs: Laboratory Results - last 24 hr 08/14/23 10:17 WBC 15.5 H RBC 4.36 L Hgb 14.0 Hct 41.7 MCV 95.6 H MCH 32.1 H MCHC 33.6 RDW Std Deviation 41.2 RDW Coeff of Lori 11.8 Plt Count 297 MPV 9.2 Immature Gran % (Auto) 0.400 Neut % (Auto) 89.7 H Lymph % (Auto) 5.8 L Long % (Auto) 4.0 Eos % (Auto) 0.0 Baso % (Auto) 0.1 Absolute Neuts (auto) 13.9 H Absolute Lymphs (auto) 0.90 Nucleated RBC % 0 Sodium 136 Potassium 4.5 Chloride 105 Carbon Dioxide 25.0 Anion Gap 6 BUN 18 Creatinine 0.96 Estim Creat Clear Calc 88.43 Est GFR (MDRD) Af Amer 101 Est GFR (MDRD) Non-Af 84 BUN/Creatinine Ratio 18.7 Glucose 142 H Calcium 9.3 Radiography Diagnostic Testing: Clinical Impression(s) from Imaging Studies Soft Tissue Neck CT 08/14/23 10:08 IMPRESSION: Right-sided acute tonsillitis associated with a 2.6 x 2.4 x 2.9 cm peritonsillar abscess. Atherosclerosis. Emphysema. Electronically Signed: Eli Gardner MD at 11:41 EDT , Treatment and Re-Evaluation :: CBC was a white count of 15.5 with 89% neutrophils. Hemoglobin is 14.0. Chemistry studies are unremarkable other than a glucose of 142. CT scan of the neck reveals a right-sided tonsillitis with a 2.6 x 2.4 x 2.9 cm peritonsillar abscess. Patient is given a dose of Unasyn. I did speak with Dr. Mujica, on-call for ENT. Patient is on Plavix, so Dr. Mujica will see the patient in consult with plan for needle aspiration of the abscess. I will speak with hospitalist regarding admission as well. Of note, patient states that his last dose of aspirin or Plavix was on August 09 as he had an upcoming biopsy on his chest scheduled. Discharge Plan Triage Chief Complaint: Sore Throat ED Provider: Nydia Rivers Dx/Rx/DC Orders Clinical Impression: Abscess, peritonsillar Prescriptions: No Action aspirin 81 mg tablet,delayed release (DR/EC) 81 mg PO DAILY Qty: 90 3RF Hold Instructions: surgery atorvastatin 10 mg tablet 10 mg PO QHS Qty: 90 3RF amlodipine 5 mg tablet 5 mg PO DAILY Qty: 90 3RF penicillin V potassium 500 mg tablet 500 mg PO BID 10 Days Qty: 20 0RF prednisone 20 mg tablet 40 mg PO DAILY 3 Days Qty: 6 0RF Rx Instructions: take with food telmisartan 80 mg tablet 80 mg PO DAILY Qty: 90 3RF clopidogrel 75 mg tablet 75 mg PO DAILY Qty: 90 3RF Hold Instructions: surgery Primary Care Provider: David Jacobo Referrals: David Jacobo MD [Primary Care Provider] - Disposition Disposition: Acute Care Hospital [facility] What to do if you have Problems For any increased pain, shortness of breath, bleeding, nausea or vomiting, chestpain, or any unexpected problems, contact your Primary Care Provider. Call [facility] ([phone]) or report to the closest Emergency Room. Call 911 if necessary. 08/14/231915 <Electronically signed by Nydia Rivers MD> Cosigner Signature (if applicable): CC: Dr. David Jacobo MD ~ Signed [facility] Work Phone: [phone]) [phone] Progress note Author Cisco Lincoln [facility] August 14, 2023 4:04pm Note Date/Time August 14, 2023 4:04pm [facility] Medical Records Department [address] [facility] [place] [address] Progress Note 08/14/23 1557 MR#: [id number] Acct: [id number] Name: FUAD KERR Rep #:[id number] : 1960 63 From: Cisco Lincoln MD PCP: Dr. David Jacobo MD Status:ADM [facility] Note Asked to see the patient for peritonsillar abscess 63 yo white male with 5 day history of right ear pain and sore throat in the abscence of hearing loss. He was seen at urgent care yesterday and treated with abx and steroids. He worsened and presented to the ER today. A CT reveals a right peritonsillar abscess PMH: Abnormal stress test Angina pectoris Atherosclerotic heart disease of [place] coronary artery without angina pectoris Breast mass, right Essential hypertension History of left heart catheterization (LHC) (~12/29/21) HLD (hyperlipidemia) Myalgia Presence of stent in coronary artery (~11/15/20) Psoriasis Psoriatic arthritis Smoker SOB (shortness of breath) STEMI (ST elevation myocardial infarction) Tobacco abuse Home Medications aspirin 81 mg tablet,delayed release 81 mg PO DAILY #90 tabs 12/10/22 [Rx Last Taken Unknown] clopidogrel 75 mg tablet 75 mg PO DAILY #90 tabs 01/04/23 [Rx Last Taken Unknown] telmisartan 80 mg tablet 80 mg PO DAILY #90 tabs 01/04/23 [Rx Last Taken 08/13/23] amlodipine 5 mg tablet 5 mg PO DAILY #90 tabs 08/02/23 [Rx Last Taken 08/13/23] atorvastatin 10 mg tablet 10 mg PO QHS #90 tabs 08/02/23 [Rx Last Taken 08/13/23] penicillin V potassium 500 mg tablet 500 mg PO BID 10 days #20 tabs 08/13/23 [Rx Last Taken 08/13/23] prednisone 20 mg tablet 40 mg (2 x 20 mg) PO DAILY 3 days #6 tabs 08/13/23 [Rx Last Taken 08/14/23] clobetasol 0.05 % topical cream 1 applic topical DAILY PRN KNEE IRRITATION 08/14/23 [History Last Taken Unknown] Allergy/AdvReac Type Severity Reaction Status Date / Time isosorbide AdvReac Intermediate Dizzy, Verified 08/14/23 09:05 lightheaded, short of breath lisinopril AdvReac Intermediate dry Verified 08/14/23 09:05 persistent cough Family History Mother Thyroid disorder Surgical History Presence of coronary angioplasty implant and graft (~11/15/20) Social History Smoking Status: Former smoker Tobacco: How many years used: 42 how long ago did patient quit smokin months alcohol intake: current details: occassional substance use type: does not use caffeine: Yes Type: coffee Number of servings: 1 ROS ROS Narrative GENERAL: denies fever, chills, night sweats, HEENT: Ear ache, sore throat RESPIRATORY: denies cough, sputum production, shortness of breath, CARDIAC: denies chest pain, palpitations, orthopnea, PND GASTROINTESTINAL: denies abdominal pain, nausea, vomiting, melena, GENITOURINARY: denies dysuria, urgency, frequency, heamaturia EXTREMITY: denies swelling MUSCULOSKELETAL: denies current joint pain or tenderness NEUROLOGIC: denies focal numbness, weakness, tingling HEMATOLOGIC: denies easy bruising and/or hemorrhage INTEGUMENT: denies rashes PSYCHIATRIC: denies suicidal or homicidal ideation PE: Awake alert nad +hot potato voice nose- no purulence M/OP- 2 cm trismus. +uvular deviation to the left. Significant fullness of the right peritonsillar area with erythema and edema of the mucosa. The right tonsilis 4+ and erythematous. The mucosa overlying the abscess is very thin. Neck- no adenopathy Procedure: Given his plavix and aspirin use (he held plavix 3 days ago) I elected to perform aspiration instead of an incision given his risk of severe hemorrhage with the anticoagulants. Cetacaine spray was sprayed on the mucosa overlying the abscess. After sufficient anesthesia, an 18 gauge needle was inserted into the abscess cavity. 3 cc of pus of was aspirated. Approximately another 5 cc of pus was expressed with the tongue blade. He tolerated this well without complications. Bleeding was self limited. A: right peritonsillar abscess now s/p aspiration P continue iv abx. check cultures. D/C home tomorrow if doing well. He should stay off of his plavix and aspirin incase he needs a formal incision (if he re collects). 08/14/23 1604 <Electronically signed by Cisco Lincoln MD> Cisco Lincoln MD Cosign Signature (if applicable): CC: ~ Signed [facility] Work Phone: 1(778) 196-488005-05-2024 History and physical note Author Eleno Quijano [facility] August 14, 2023 1:09pm Note Date/Time August 14, 2023 12:45p [facility] Medical Records Department [address] [place] [address] H&P Exam - Hospitalist 08/14/23 1238 MR#: [id number] Acct: [id number] Name: FUAD KERR Rep #:[id number] : 1960 63 From: Eleno Quijano MD PCP: Dr. David Jacobo MD Status:REG ER Location: ED HPI - General General Date of Admission: 08/14/23 Date of Service: 08/14/23 Chief Complaint: Ear ache and sore throat HPI Narrative FUAD KERR, is a 63 M who presents with earache and sore throat. Patient symptoms started 5 days prior to his admission was on medication. Got back the day prior was seen at an urgent care center diagnosed with pharyngitis prescribed antibiotics as well as steroid. Patient symptoms however did worsen necessitating patient presenting to the emergency department. Imaging studies on admission did show Right-sided acute tonsillitis associated with a 2.6 x 2.4 x 2.9 cm peritonsillar abscess.. The ENT surgeon on-call Dr. Lincoln was notified recommended for patient to be admitted to the hospitalist service with consultation placed to him for possible I&D. Of note patient is on Plavix for CAD which has been held 5 days prior to his admission for biopsy involving the suspected right breast hematoma from trauma at work [facility] Medical History Abnormal stress test Angina pectoris Atherosclerotic heart disease of [place] coronary artery without angina pectoris Breast mass, right Essential hypertension History of left heart catheterization (LHC) (~12/29/21) HLD (hyperlipidemia) Myalgia Presence of stent in coronary artery (~11/15/20) Psoriasis Psoriatic arthritis Smoker SOB (shortness of breath) STEMI (ST elevation myocardial infarction) Tobacco abuse Home Medications aspirin 81 mg tablet,delayed release 81 mg PO DAILY #90 tabs 12/10/22 [Rx Last Taken Unknown] clopidogrel 75 mg tablet 75 mg PO DAILY #90 tabs 01/04/23 [Rx Last Taken Unknown] telmisartan 80 mg tablet 80 mg PO DAILY #90 tabs 01/04/23 [Rx Last Taken 08/13/23] amlodipine 5 mg tablet 5 mg PO DAILY #90 tabs 08/02/23 [Rx Last Taken 08/13/23] atorvastatin 10 mg tablet 10 mg PO QHS #90 tabs 08/02/23 [Rx Last Taken 08/13/23] penicillin V potassium 500 mg tablet 500 mg PO BID 10 days #20 tabs 08/13/23 [Rx Last Taken 08/13/23] prednisone 20 mg tablet 40 mg (2 x 20 mg) PO DAILY 3 days #6 tabs 08/13/23 [Rx Last Taken 08/14/23] clobetasol 0.05 % topical cream 1 applic topical DAILY PRN KNEE IRRITATION 08/14/23 [History Last Taken Unknown] Allergy/AdvReac Type Severity Reaction Status Date / Time isosorbide AdvReac Intermediate Dizzy, Verified 08/14/23 09:05 lightheaded, short of breath lisinopril AdvReac Intermediate dry Verified 08/14/23 09:05 persistent cough Family History Mother Thyroid disorder Surgical History Presence of coronary angioplasty implant and graft (~11/15/20) Social History Smoking Status: Former smoker Tobacco: How many years used: 42 how long ago did patient quit smokin months alcohol intake: current details: occassional substance use type: does not use caffeine: Yes Type: coffee Number of servings: 1 ROS ROS Narrative GENERAL: denies fever, chills, night sweats, HEENT: Ear ache, sore throat RESPIRATORY: denies cough, sputum production, shortness of breath, CARDIAC: denies chest pain, palpitations, orthopnea, PND GASTROINTESTINAL: denies abdominal pain, nausea, vomiting, melena, GENITOURINARY: denies dysuria, urgency, frequency, heamaturia EXTREMITY: denies swelling MUSCULOSKELETAL: denies current joint pain or tenderness NEUROLOGIC: denies focal numbness, weakness, tingling HEMATOLOGIC: denies easy bruising and/or hemorrhage INTEGUMENT: denies rashes PSYCHIATRIC: denies suicidal or homicidal ideation Vital Signs Vital Signs Vital Signs: 08/14/23 09:06 Temperature 97.1 F L Temperature Source Temporal Pulse Rate 73 Respiratory Rate 18 Blood Pressure 135/75 H Blood Pressure Mean 95 Pulse Ox 93 Oxygen Delivery Method Room Air Weight Weight: 88.949 kg Body Mass Index (BMI) 28.1 Physical Exam Narrative GENERAL: cooperative HEENT: Atraumatic; erythema and swelling involving the right tonsillar EYES; Anicteric, Normal Conjunctiva NECK; supple, normal thyroid, RESPIRATORY: Diminished to auscultation CARDIOVASCULAR: Regular S1 S2, GI: soft, normoactive bowel sounds, : No Renal angle tenderness; EXTREMITIES: No edema, no clubbing, MUSCULOSKELETAL: no muscle wasting NEURO: Awake; no lateralizing signs. SKIN: No Rash PSYCH; Flat affect Results Lab / Micro Data 08/14/23 10:17 08/14/23 10:17 Labs: Laboratory Results - last 24 hr 08/14/23 10:17: WBC 15.5 H, RBC 4.36 L, Hgb 14.0, Hct 41.7, MCV 95.6 H, MCH 32.1H, MCHC 33.6, RDW Std Deviation 41.2, RDW Coeff of Lori 11.8, Plt Count 297, MPV 9.2, Immature Gran % (Auto) 0.400, Neut % (Auto) 89.7 H, Lymph % (Auto) 5.8 L, Long % (Auto) 4.0, Eos % (Auto) 0.0, Baso % (Auto) 0.1, Absolute Neuts (auto) 13.9 H, Absolute Lymphs (auto) 0.90, Nucleated RBC % 0, Sodium 136, Potassium 4.5, Chloride 105, Carbon Dioxide 25.0, Anion Gap 6, BUN 18, Creatinine 0.96, Estim Creat Clear Calc 88.43, Est GFR (MDRD) Af Amer 101, Est GFR (MDRD) Non-Af 84, BUN/Creatinine Ratio 18.7, Glucose 142 H, Calcium 9.3 Micro: Microbiology 08/14/23 10:15 Mucosa - Throat Streptococcus pyogenes (PCR) - Final Imaging Radiology Impression Soft Tissue Neck CT 08/14/23 10:08 IMPRESSION: Right-sided acute tonsillitis associated with a 2.6 x 2.4 x 2.9 cm peritonsillar abscess. Atherosclerosis. Emphysema. Electronically Signed: Eli Gardner MD at 11:41 EDT , Assessment & Plan Assessment/Plan (1) Abscess, peritonsillar: PLAN: Plan Patient is a 63-year-old gentleman presented with earache and sore throat imaging studies demonstrated right-sided acute tonsillitis with peritonsillar abscess 1. Acute tonsillitis with peritonsillar abscess ? Imaging studies obtained on admission did show Right-sided acute tonsillitis associated with a 2.6 x 2.4 x 2.9 cm peritonsillar abscess. Patient started on Unasyn in addition to pain meds admitted to regular nursing floor consultation placed to Dr. Cisco Lincoln with ENT for possible I&D 2. 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 disease ? With previous PCI. Patient is on Plavix held for biopsy involving a suspectedright breast hematoma 3. Right breast hematoma ? Suspected to be secondary to trauma from work. Patient is scheduled to undergo biopsy 4. Hypertension - Blood pressure controlled, home medications continued with dose adjustment as needed 5. Dyslipidemia -Patient is on statin therapy, continued at home dose 6. Emphysema ? PET CAT scan findings. Patient has history of tobacco dependence. Currently does not smoke 7. DVT prophylaxis ? SCDs for now with plans to initiate chemoprophylaxis following patient procedure Time spent in the patient's overall evaluation,decision-making process, review of diagnostic data, adjustment of management, discussion with other providers, nursing nursing and ancillary staff involved in patient's care documentation, 55minutes minutes Advance planning; did discuss with the patient and family regarding advanced directives as well as CODE STATUS. Did explain the various scenarios involved (FULL CODE, DNR CCA, DNR CCA with no intubation, and DNR CC and what each meant) patient elected to remain full code with CPR and intubation if warranted. Orderwas placed. Time spent on discussion 16 minutes. Charges/Coding Visit Charges Inpatient E&M: 09862 Init Hosp L2 Procedures Hospitalists Procedures: 21680 Advncd Care Plan 30 Min 08/14/23 1309 <Electronically signed by Eleno Quijano MD> Cosigner Signature (if applicable): CC: Dr. Eleno Quijano MD; Dr. 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 Dyslipidemia chronic Essential hypertension chron ic Presence of stent in coronary artery November, chronic Strep pharyngitis acute Abscess, peritonsillar acute [facility] Work Phone: 1(420) 790-596308-01-2021 Evaluation note* Diagnosis Onset Date Resolution Status Breast mass, right acute 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 disease 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 Dyslipidemia chronic Essential hypertension chron ic Presence of stent in coronary artery November, chronic Strep pharyngitis acute Abscess, peritonsillar acute Breast mass, right acute Acute ST elevation myocardial infarction (STEMI) acute Essential hypertension chron ic [facility] Work Phone: 1(327) 547-257508-01-2021 Evaluation note* Diagnosis Onset Date Resolution Status Breast mass, right acute 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 disease 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 Dyslipidemia chronic Essential hypertension chron ic Presence of stent in coronary artery November, chronic Strep pharyngitis acute Abscess, peritonsillar acute Breast mass, right acute Abscess, peritonsillar acute Acute ST elevation myocardial infarction (STEMI) acute Breast mass, right acute 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 disease 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 Dyslipidemia chronic Essential hypertension chron ic [facility] Work Phone: 1(690) 120-520008-01-2021 Evaluation note* Diagnosis Onset Date Resolution Status Admit Date 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 disease chronic J meghana 2024 2:13pm Essential hypertension chronic Ju ly 2024 2:13pm Presence of stent in coronar y artery November, chronic November 02, 2024 2:13pm Chest pain resolved November 02 2:13pm Dyslipidemia inactive November 02, 2 025 2:13pm [facility] Work Phone: Consult note Author Sisi Burleson [facility] May 6th, 2024 10:44am Note Date/Time August 15, 2023 10:44a m [facility] Medical Records Department [address] [place] [address] Counseling Note - Pharmacy 08/15/23 1044 MR#: [id number] Acct: [id number] Name: FUAD KERR Rep #:[id number] : 1960 63 From: Sisi Burleson PCP: Dr. David Jacobo MD Status:ADM IN Y [id number] has performed discharge medication reconciliation and counseling for this patient. 1. AUGMENTIN 875MG 1T PO BID X 12 DAYS The patient's discharge medication list was reviewed for discrepancies and discrepancies were resolved. The patient was counseled on the following discharge medications and changes in medications for homegoing were reviewed. The Reason for Use, instructions for use, and potential side effects were reviewed for all new medications. The patient's questions regarding all of their medications were answered. The patient was able to verbally demonstrate an understanding of their dischargemedications. Medications at Discharge Home Medications aspirin 81 mg tablet,delayed release 81 mg PO DAILY #90 tabs 12/10/22 clopidogrel 75 mg tablet 75 mg PO DAILY #90 tabs 01/04/23 telmisartan 80 mg tablet 80 mg PO DAILY #90 tabs 01/04/23 amlodipine 5 mg tablet 5 mg PO DAILY #90 tabs 08/02/23 atorvastatin 10 mg tablet 10 mg PO QHS #90 tabs 08/02/23 clobetasol 0.05 % topical cream 1 applic topical DAILY PRN KNEE IRRITATION 08/14/23 amoxicillin 875 mg-potassium clavulanate 125 mg tablet 1 tab PO BID #24 tabs 08/15/23 08/15/23 1044 <Electronically signed by Sisi Burleson> Date _ Sisi Burleson Cosigner Signature (if applicable): Date CC: ~ Signed [facility] Work Phone: Discharge summary Author Dorene Rodriguez [facility] August 15, 2023 10:19am Note Date/Time August 15, 2023 10:04a m [facility] Medical Records Department [address] [place] [address] Discharge Summary 08/15/23 1004 MR#: [id number] Acct: [id number] Name: FUAD KERR Rep #:[id number] : 1960 63 From: Dorene Rodriguez DO PCP: Dr. David Jacobo MD Status:ADM IN [id number] Prov[facility] Date of Admission: 08/14/23 Date of Discharge: 08/15/23 Primary Care Physician: Dr. David Jacobo MD Consultations 08/14/23 14:52 Consult: ENT Routine Consulting Provider: Cisco Lincoln Reason for Consult: Right peritonsillar abscess EMERGENT Consult: Yes MD Notified: Yes Date Notified: 08/14/23 Time Notified: 13:17 Method of Notification: ED Physician Initiated Reason For Visit: ACUTE TONSILLAR ABSCESS Diagnosis Discharge Diagnosis (1) Abscess, peritonsillar: Status: Acute Code(s): J36 - Peritonsillar abscess Medications at Discharge Home Medications aspirin 81 mg tablet,delayed release 81 mg PO DAILY #90 tabs 12/10/22 clopidogrel 75 mg tablet 75 mg PO DAILY #90 tabs 01/04/23 telmisartan 80 mg tablet 80 mg PO DAILY #90 tabs 01/04/23 amlodipine 5 mg tablet 5 mg PO DAILY #90 tabs 08/02/23 atorvastatin 10 mg tablet 10 mg PO QHS #90 tabs 08/02/23 clobetasol 0.05 % topical cream 1 applic topical DAILY PRN KNEE IRRITATION 08/14/23 amoxicillin 875 mg-potassium clavulanate 125 mg tablet 1 tab PO BID #24 tabs 08/15/23 Hospital Course Operations - (Bedside aspiration of left peritonsillar abscess) Procedures - (CT soft tissues of neck) Summary of Care Provided Minutes Spent on Discharge: 37 Hospital Course: Mr. Kerr is a 63-year-old white male who presents emergency department at [facility] on 08/14/2023 due to a earache and a sore throat on theright side of his neck. He was seen the day prior to presentation in urgent care and was diagnosed with pharyngitis. He was prescribed penicillin V and placed on steroids. His symptoms worsen and he presents emergency department for further evaluation. Vital signs on presentation were unremarkable. CBC showed a white count of 15.5 with a left shift having an 89.7% neutrophilia. His chemistry panel was unremarkable. Rapid strep was negative in the emergencydepartment. CT imaging of the soft tissues of the neck was performed and demonstrated a right-sided acute tonsillitis with an associated 2.6 x 2.4 x 2.9 cm peritonsillar abscess as well as atherosclerosis and emphysema. He was admitted to the medical floor and placed on antibiotics utilizing Unasyn with pain medications and antiemetics as needed. A consult to ENT was placed and he was evaluated by Dr. Cisco Mujica on the same day of admission. At baseline thepatient is on aspirin and Plavix but he began holding it for another procedure prior to presentation (3 days at admission). Given only 3 days had gone by since he had held his dual antiplatelet therapy aspiration was elected to be performed by ENT to avoid complication. An 18-gauge needle was inserted into the abscess cavity and 3 cc of pus was aspirated and another 5 cc was expressed with a tongue blade. The patient tolerated the procedure well and no complications were noted. Pus was sent for cultures and the patient was maintained on IV antibiotics. It was recommended the patient stay off his aspirin and Plavix until the point that he can be reevaluated by ENT in case he really develops abscess after discharge. By the a.m. of 08/15/2023 the patient was speaking much better and felt 150% improved from the day previous per the patient. It was felt that he could go home as he was tolerating clear liquid diet. He was recommended continuing soft diet until he can be reevaluated by ENT and that was recommended to be done early next week. He will be on antibiotics with Augmentin for another 12 days for completion of 14 days of treatment. I did recommend he discontinue steroids as these are likely to be not beneficial at this point. A prescription for the Augmentin was sent to his local pharmacy and he was instructed to continue to hold his aspirin and Plavix until evaluated by Dr. Mujica next week. Patient was discharged home in stable condition on 08/15/2023. Discharge diagnoses: Right peritonsillar abscess Leukocytosis Right ear pain-resolved CAD Right breast hematoma-biopsy tomorrow Hypertension Hyperlipidemia Emphysematous changes on CAT scan History of tobacco abuse Physical Exam Narrative Patient states he is feeling much better overall. States his swallowing is improved considerably. Still his throat is mildly scratchy but overall markedlyimproved. Patient is anxious to go home. Const alert, oriented x3, no apparent distress, average body habitus, no limitations and well nourished Constitutional Narrative: Upper middle-aged, white male, sitting up in bed watching television, appears comfortable and nontoxic, voice quality is normal General Appearance: cooperative, comfortable, well kempt and well developed Orientation / Consciousness: awake, oriented to person, oriented to place and oriented to time Exam Limitations: no limitations HEENT normocephalic, head/scalp atraumatic, hearing grossly normal bilaterally and moist oral mucous membranes HEENT Narrative: Mallampati is 3, dentures in place, slight right-sided peritonsillar edema with mild uvula shift leftward, no purulent drainage noted Eyes PERRL, EOMs intact bilaterally and conjunctivae normal Eyes Narrative: No scleral icterus Neck no lymphadenopathy and supple Neck Narrative: Mild tenderness on right side of anterior neck in the posterior submandibular region Resp normal respiratory effort, no retractions, no use of accessory muscles and clearto auscultation bilaterally Auscultation: Negative for rales, rhonchi or wheezes Cardio regular rate, regular rhythm, S1 normal heart sound, S2 normal heart sound, no murmurs, no rub, no gallops and no clicks GI normal to inspection, nondistended, normoactive bowel sounds, soft to palpation and non-tender Extremity no clubbing, cyanosis or edema Extremity Narrative: Pedal pulses are 2+ Skin no rashes or lesions noted, no wounds and skin turgor normal Neuro oriented x3, CN's II-XII intact bilaterally, moves all extremities and no focal motor deficits Speech: speech normal Psych affect normal Psych Narrative: Very pleasant, eye contact is good, patient interacts appropriately Weight / BMI Weight Weight: 88.042 kg Body Mass Index (BMI) 27.8 ABG / Lab / Microbiology Data 08/15/23 05:31 08/15/23 05:31 Laboratory: Laboratory Results - last 24 hr 08/14/23 10:17: WBC 15.5 H, RBC 4.36 L, Hgb 14.0, Hct 41.7, MCV 95.6 H, MCH 32.1H, MCHC 33.6, RDW Std Deviation 41.2, RDW Coeff of Lori 11.8, Plt Count 297, MPV 9.2, Immature Gran % (Auto) 0.400, Neut % (Auto) 89.7 H, Lymph % (Auto) 5.8 L, Long % (Auto) 4.0, Eos % (Auto) 0.0, Baso % (Auto) 0.1, Absolute Neuts (auto) 13.9 H, Absolute Lymphs (auto) 0.90, Nucleated RBC % 0, Sodium 136, Potassium 4.5, Chloride 105, Carbon Dioxide 25.0, Anion Gap 6, BUN 18, Creatinine 0.96, Estim Creat Clear Calc 88.43, Est GFR (MDRD) Af Amer 101, Est GFR (MDRD) Non-Af 84, BUN/Creatinine Ratio 18.7, Glucose 142 H, Calcium 9.3 08/15/23 05:31: WBC 12.4 H, RBC 4.23 L, Hgb 13.6, Hct 40.7, MCV 96.2 H, MCH 32.2H, MCHC 33.4, RDW Std Deviation 41.2, RDW Coeff of Lori 11.8, Plt Count 309, MPV 9.6, Immature Gran % (Auto) 0.600, Neut % (Auto) 88.4 H, Lymph % (Auto) 8.0 L, Long % (Auto) 2.9, Eos % (Auto) 0.0, Baso % (Auto) 0.1, Absolute Neuts (auto) 11.0 H, Absolute Lymphs (auto) 0.99, Nucleated RBC % 0, Sodium 137, Potassium 4.2, Chloride 107, Carbon Dioxide 24.0, Anion Gap 6, BUN 15, Creatinine 0.85, Estim Creat Clear Calc 99.42, Est GFR (MDRD) Af Amer 116, Est GFR (MDRD) Non-Af 96, BUN/Creatinine Ratio 17.6, Glucose 207 H, Calcium 8.9, Phosphorus 2.6, Magnesium 2.3 Microbiology: Microbiology 08/14/23 10:15 Mucosa - Throat Streptococcus pyogenes (PCR) - Final Radiography Diagnostic Testing: Radiology Impression Soft Tissue Neck CT 08/14/23 10:08 IMPRESSION: Right-sided acute tonsillitis associated with a 2.6 x 2.4 x 2.9 cm peritonsillar abscess. Atherosclerosis. Emphysema. Electronically Signed: Eli Gardner MD at 11:41 EDT , D/C Instructions Discharge Diet: Soft diet Discharge Activity: Return to Normal Activity Return to work on: 08/16/23 Meaningful Use Info Meaningful Use Meaningful Use Diagnoses (Choose all that apply): None applicable Ischemic Stroke Statin Dosing Therapy Reference: STATIN DOSE THERAPY REFERENCE: * Patients > 75 years receive moderate or high dose statin therapy. * Patients 75 years or YOUNGER should receive HIGH intensity statin dose unless contraindicated. You will be required to document reason for non-treatment if statin daily dose does not meet guidelines. HIGH DOSE STATIN THERAPY DAILY Atorvastatin > than or = to 40 mg Rosuvastatin > than or = to 20 mg Amlodipine + Atorvastatin > than or = to 2.5/40 mg Ezetimibe + Simvastatin 10/80 mg Simvastatin 80mg Discharge Plan Admission Admit Date/Time: 08/14/23 12:29 Primary Reason for Your Visit: Earache and Sore Throat Attending Provider: Dorene Rodriguez Primary Care Provider: David Jacobo Consulting Providers: Cisco Lincoln; Eleno Quijano Instructions Additional Instructions / Restrictions: 1. Continue to use Tylenol as needed for pain Discharge Orders/Prescriptions Prescriptions: New amoxicillin-pot clavulanate 875-125 mg tablet 1 tab PO BID Qty: 24 0RF Continued atorvastatin 10 mg tablet 10 mg PO QHS Qty: 90 3RF amlodipine 5 mg tablet 5 mg PO DAILY Qty: 90 3RF clobetasol 0.05 % cream 1 applic topical DAILY PRN (Reason: KNEE IRRITATION) telmisartan 80 mg tablet 80 mg PO DAILY Qty: 90 3RF Held aspirin 81 mg tablet,delayed release (DR/EC) 81 mg PO DAILY Qty: 90 3RF Hold Instructions: Do not start until instructed by Dr. Mujica clopidogrel 75 mg tablet 75 mg PO DAILY Qty: 90 3RF Hold Instructions: Do not start until instructed to do so by Dr. Mujica Discontinued penicillin V potassium 500 mg tablet 500 mg PO BID 10 Days Qty: 20 0RF prednisone 20 mg tablet 40 mg PO DAILY 3 Days Qty: 6 0RF Rx Instructions: take with food Referrals / Follow Up: David Jacobo MD [Primary Care Provider] - See Referral Note (As needed) Cisco Lincoln MD [Med Staff - Active Staff] - See Referral Note (Call later today or tomorrow to set up appointment to be seen early next week and hold aspirin and Plavix until reevaluated by ENT) Disposition Disposition (needs filled in before D/C Order can be placed): Home, Self Care Charges/Coding Visit Charges Inpatient E&M: 99041 Disch Hosp >30min 08/15/23 1019 <Electronically signed by Dorene Rodriguez DO> Cosigner Signature (if applicable): CC: Dr. David Jacobo MD; Dr. Dorene Rodriguez DO; Dr. Cisco Lincoln MD~ Signed [facility] Work Phone: Discharge summary Author Dorene Rodriguez [facility] August 19, 2023 11:29am Note Date/Time August 19, 2023 11:21 am [facility] Medical Records Department [address] [place] [id number] Discharge Summary 08/19/23 1120 MR#: [id number] Acct: [id number] Name: FUAD KERR Prema Rep #:[id number] : 1960 63 From: Dorene Rodriguez DO PCP: Dr. David Jacobo MD Status:ADM IN Location: [place] [id number] Providers Date of Admission: 08/17/23 Date of Discharge: 08/19/23 Primary Care Physician: Dr. David Jacobo MD Reason For Visit: ACUTE STEMI Diagnosis Discharge Diagnosis (1) Acute ST elevation myocardial infarction (STEMI): Status: Acute Code(s): I21.3 - ST elevation (STEMI) myocardial infarction of unspecified site (2) 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 disease: Status: Chronic Code(s): I25.10 - Atherosclerotic heart disease of [place] coronary artery without angina pectoris (3) Dyslipidemia: Status: Chronic Code(s): E78.5 - Hyperlipidemia, unspecified (4) Essential hypertension: Status: Chronic Code(s): I10 - Essential (primary) hypertension Medications at Discharge Home Medications aspirin 81 mg tablet,delayed release 81 mg PO DAILY #90 tabs 12/10/22 clopidogrel 75 mg tablet 75 mg PO DAILY #90 tabs 01/04/23 telmisartan 80 mg tablet 80 mg PO DAILY #90 tabs 01/04/23 amlodipine 5 mg tablet 5 mg PO DAILY #90 tabs 08/02/23 atorvastatin 10 mg tablet 10 mg PO QHS #90 tabs 08/02/23 clobetasol 0.05 % topical cream 1 applic topical DAILY PRN KNEE IRRITATION 08/14/23 amoxicillin 875 mg-potassium clavulanate 125 mg tablet 1 tab PO BID #24 tabs 08/15/23 Hospital Course Procedures 2-D Echocardiogram, Cardiac catheterization and EKG Summary of Care Provided Minutes Spent on Discharge: 38 Hospital Course: Mr. Kerr is a 63-year-old white male who presented to the emergency department at [facility] on 08/17/2023 with chest pain that started about an hour prior to presentation. He was out doing some yard work and started having symptoms. He reported his chest pain was pressure-like and radiated to his left shoulder and jaw and it was associated with some mild diaphoresis. He denied any nausea or vomiting and he denied shortness of breath. Patient had previously been on Plavix but had not taken his Plavix in about 5 days as he was scheduled to have a breast biopsy. His last stent was placed in 2020. He had a recent admission here at which time he was found to have a peritonsillar abscess for which an aspiration was done by ENT and he clinically improved and was discharged on oral antibiotics. Vital signs on presentation showed a temperature of 98.6, heart rate 72, respiratory 16, blood pressure was 184/116, pulse ox was 96% on room air. CBC showed a mild leukocytosis with a white count of 12.1 but was otherwise unremarkable. Coags were unremarkable. Chemistry panel showed JOHNNA with a serum creatinine of 1.81 and a BUN of 30 with a baseline serum creatinine of 0.8-1.0. His glucose on presentation was 140. Initial troponin was 100. On admission actual cholesterol panel was obtained and his total cholesterol was 82 with an LDL of 10 and HDL of 27 and a triglyceride level of 227. He was taken emergently to the Compliance And Control Analyst and this revealed in-stent thrombosis in the mid right posterior descending artery for which successful percutaneous revascularization was performed with balloon angioplasty and placement of 1 drug-eluting stent with results showing WAI-3 flow. We obtained an echocardiogram which was done on 08/18/2023 and showed an EF of 65% with mild inferior hypokinesis, mild concentricLVH, mild tricuspid valve insufficiency and a right ventricular systolic pressure at 36 mmHg. His aortic root was mildly dilated. He was monitored for 24 hours after cardiac catheterization and he had no significant signs of reperfusion arrhythmias. He was felt stable for discharge and was feeling well on 08/19/2023. No new medications were initiated however we did restart his aspirin and Plavix and he will need these continuously for the next 12 months. We have scheduled a follow-up in the outpatient setting for cardiology and I have advised him to follow-up with his primary care physician within the next 2 to 4 weeks for hospital follow-up. Discharge diagnoses: Acute inferior STEMI Recent right peritonsillar abscess-resolving Right breast mass-biopsy pending CAD Hypertension Hyperlipidemia Suspected COPD Physical Exam Const alert, oriented x3, no apparent distress, no limitations, healthy appearing and well nourished Constitutional Narrative: Overweight, upper middle-aged, white male, sitting up in a chair at the bedside,appears comfortable and nontoxic General Appearance: cooperative, comfortable, well kempt and well developed Orientation / Consciousness: awake, oriented to person, oriented to place and oriented to time Exam Limitations: no limitations HEENT normocephalic, head/scalp atraumatic, moist oral mucous membranes and oropharynxnormal HEENT Narrative: Mild hearing loss, Mallampati is 2, no thrush Eyes PERRL, EOMs intact bilaterally and conjunctivae normal Eyes Narrative: No scleral icterus Neck no lymphadenopathy and supple Neck Narrative: Trachea midline, no thyroid enlargement Resp normal respiratory effort, normal air movement, no retractions, no use of accessory muscles and clear to auscultation bilaterally Auscultation: Negative for rales, rhonchi or wheezes Cardio regular rate, regular rhythm, S1 normal heart sound, S2 normal heart sound, no murmurs, no rub, no gallops and no clicks GI normal to inspection, nondistended, normoactive bowel sounds, soft to palpation and non-tender Extremity normal capillary refill, no clubbing, cyanosis or edema and no calf tenderness Extremity Narrative: Pedal pulses are 2+ Neuro oriented x3, CN's II-XII intact bilaterally, moves all extremities and no focal motor deficits Sensorium / Orientation: awake, alert, oriented to person, oriented to place andoriented to time Speech: speech normal Psych thought process normal, cooperative and affect normal Psych Narrative: Extremely pleasant, eye contact is good, patient interacts appropriately Weight / BMI Weight Weight: 88.6 kg Body Mass Index (BMI) 28.0 ABG / Lab / Microbiology Data 08/19/23 05:00 08/19/23 05:00 Laboratory: Laboratory Results - last 24 hr 08/17/23 16:00: Activated Clotting Time 189 H 08/17/23 16:34: Activated Clotting Time 250 H 08/18/23 04:10: Hemoglobin A1c 5.7 H 08/19/23 05:00: WBC 10.2, RBC 4.10 L, Hgb 13.0, Hct 40.2, MCV 98.0 H, MCH 31.7, MCHC 32.3, RDW Std Deviation 43.0, RDW Coeff of Lori 11.9, Plt Count 324, MPV 9.1, Sodium 138, Potassium 4.2, Chloride 107, Carbon Dioxide 27.0, Anion Gap 4 L, BUN 16, Creatinine 1.00, Estim Creat Clear Calc 84.74, Est GFR (MDRD) Af Amer 97, Est GFR (MDRD) Non-Af 80, BUN/Creatinine Ratio 16.0, Glucose 106, Calcium 8.6 D/C Instructions Discharge Diet: Low fat / Low cholesterol Discharge Activity: Return to Normal Activity (Do not lift greater than 10 pounds with your right hand for the next 3 to 5 days or do repetitive movements with that hand) Return to work on: 08/23/23 Meaningful Use Info Meaningful Use Meaningful Use Diagnoses (Choose all that apply): None applicable and AMI AMI/Post PCI/Angioplasty Aspirin given w/in 24hrs of arrival?: Yes ASA at discharge?: Yes Antiplatelet Therapy at Discharge:: Yes Statins at discharge?: Yes Tian/ARB at discharge?: Yes Beta Bambi at discharge?: No Reason Beta Bambi not ordered:: Drug Interaction Done w/ Acute DC measure.: Yes Documented LVEF (%): 65 Ischemic Stroke Statin Dosing Therapy Reference: STATIN DOSE THERAPY REFERENCE: * Patients > 75 years receive moderate or high dose statin therapy. * Patients 75 years or YOUNGER should receive HIGH intensity statin dose unless contraindicated. You will be required to document reason for non-treatment if statin daily dose does not meet guidelines. HIGH DOSE STATIN THERAPY DAILY Atorvastatin > than or = to 40 mg Rosuvastatin > than or = to 20 mg Amlodipine + Atorvastatin > than or = to 2.5/40 mg Ezetimibe + Simvastatin 10/80 mg Simvastatin 80mg Discharge Plan Admission Admit Date/Time: 08/17/23 16:37 Primary Reason for Your Visit: Chest Pain Attending Provider: Dorene Rodriguez Primary Care Provider: David Jacobo Consulting Providers: Conchita Ty Discharge Orders/Prescriptions Prescriptions: Continued aspirin 81 mg tablet,delayed release (DR/EC) 81 mg PO DAILY Qty: 90 3RF Hold Instructions: Do not start until instructed by Dr. Mujica atorvastatin 10 mg tablet 10 mg PO QHS Qty: 90 3RF amlodipine 5 mg tablet 5 mg PO DAILY Qty: 90 3RF clobetasol 0.05 % cream 1 applic topical DAILY PRN (Reason: KNEE IRRITATION) amoxicillin-pot clavulanate 875-125 mg tablet 1 tab PO BID Qty: 24 0RF telmisartan 80 mg tablet 80 mg PO DAILY Qty: 90 3RF clopidogrel 75 mg tablet 75 mg PO DAILY Qty: 90 3RF Hold Instructions: Do not start until instructed to do so by Dr. Mujica Referrals / Follow Up: David Jacobo MD [Primary Care Provider] - Within 2 Weeks Cisco Lincoln MD [Med Staff - Active Staff] - See Referral Note (as scheduled) Disposition Disposition (needs filled in before D/C Order can be placed): Home, Self Care Charges/Coding Visit Charges Inpatient E&M: 00059 Disch Hosp >30min 08/19/23 1129 <Electronically signed by Dorene Rodriguez DO> Cosigner Signature (if applicable): CC: Dr. David Jacobo MD; Dr. Dorene Rodriguez DO; Dr. Cisco Lincoln MD~ Signed [facility] Work Phone: Evaluation + Plan note No data available for this section [facility] Evaluation noteNo assessment information available [facility] Work Phone: Evaluation note* Diagnosis Onset Date Resolution Status Angina pectoris acute Atherosclerotic heart diseas e of [place] coronary artery without angina pectoris acute Essential hypertension acute HLD (hyperlipidemia) acute Myalgia acute Presence of stent in coronary artery November, acute [facility] Work Phone: Evaluation note* Diagnosis Onset Date Resolution Status Atherosclerotic heart diseas e of [place] coronary artery without angina pectoris chronic Essential hypertension chron ic HLD (hyperlipidemia) chronic [facility] Work Phone: Evaluation note* Diagnosis Onset Date Resolution Status Breast mass, right acute [facility] Work Phone: Evaluation note* Diagnosis Acute cough- Primary Sorethroat Acute pharyngitis documented in this [facility] Author Eleno Quijano [facility] August 14, 2023 1:09pm Note Date/Time August 14, 2023 12:45p [facility] Medical Records Department [address] [place] [address] H&P Exam - Hospitalist 08/14/23 1238 MR#: [id number] Acct: [id number] Name: FUAD KERR Rep #:[id number] : 1960 63 From: Eleno Quijano MD PCP: Dr. David Jacobo MD Status:[facility] ER Location: ED HPI - General General Date of Admission: 08/14/23 Date of Service: 08/14/23 Chief Complaint: Ear ache and sore throat HPI Narrative FUAD KERR, is a 63 M who presents with earache and sore throat. Patient symptoms started 5 days prior to his admission was on medication. Got back the day prior was seen at an urgent care center diagnosed with pharyngitis prescribed antibiotics as well as steroid. Patient symptoms however did worsen necessitating patient presenting to the emergency department. Imaging studies on admission did show Right-sided acute tonsillitis associated with a 2.6 x 2.4 x 2.9 cm peritonsillar abscess.. The ENT surgeon on-call Dr. Latonia was notified recommended for patient to be admitted to the hospitalist service with consultation placed to him for possible I&D. Of note patient is on Plavix for CAD which has been held 5 days prior to his admission for biopsy involving the suspected right breast hematoma from trauma at work [facility] Medical History Abnormal stress test Angina pectoris Atherosclerotic heart disease of [place] coronary artery without angina pectoris Breast mass, right Essential hypertension History of left heart catheterization (LHC) (~12/29/21) HLD (hyperlipidemia) Myalgia Presence of stent in coronary artery (~11/15/20) Psoriasis Psoriatic arthritis Smoker SOB (shortness of breath) STEMI (ST elevation myocardial infarction) Tobacco abuse Home Medications aspirin 81 mg tablet,delayed release 81 mg PO DAILY #90 tabs 12/10/22 [Rx Last Taken Unknown] clopidogrel 75 mg tablet 75 mg PO DAILY #90 tabs 01/04/23 [Rx Last Taken Unknown] telmisartan 80 mg tablet 80 mg PO DAILY #90 tabs 01/04/23 [Rx Last Taken 08/13/23] amlodipine 5 mg tablet 5 mg PO DAILY #90 tabs 08/02/23 [Rx Last Taken 08/13/23] atorvastatin 10 mg tablet 10 mg PO QHS #90 tabs 08/02/23 [Rx Last Taken 08/13/23] penicillin V potassium 500 mg tablet 500 mg PO BID 10 days #20 tabs 08/13/23 [Rx Last Taken 08/13/23] prednisone 20 mg tablet 40 mg (2 x 20 mg) PO DAILY 3 days #6 tabs 08/13/23 [Rx Last Taken 08/14/23] clobetasol 0.05 % topical cream 1 applic topical DAILY PRN KNEE IRRITATION 08/14/23 [History Last Taken Unknown] Allergy/AdvReac Type Severity Reaction Status Date / Time isosorbide AdvReac Intermediate Dizzy, Verified 08/14/23 09:05 lightheaded, short of breath lisinopril AdvReac Intermediate dry Verified 08/14/23 09:05 persistent cough Family History Mother Thyroid disorder Surgical History Presence of coronary angioplasty implant and graft (~11/15/20) Social History Smoking Status: Former smoker Tobacco: How many years used: 42 how long ago did patient quit smokin months alcohol intake: current details: occassional substance use type: does not use caffeine: Yes Type: coffee Number of servings: 1 ROS ROS Narrative GENERAL: denies fever, chills, night sweats, HEENT: Ear ache, sore throat RESPIRATORY: denies cough, sputum production, shortness of breath, CARDIAC: denies chest pain, palpitations, orthopnea, PND GASTROINTESTINAL: denies abdominal pain, nausea, vomiting, melena, GENITOURINARY: denies dysuria, urgency, frequency, heamaturia EXTREMITY: denies swelling MUSCULOSKELETAL: denies current joint pain or tenderness NEUROLOGIC: denies focal numbness, weakness, tingling HEMATOLOGIC: denies easy bruising and/or hemorrhage INTEGUMENT: denies rashes PSYCHIATRIC: denies suicidal or homicidal ideation Vital Signs Vital Signs Vital Signs: 08/14/23 09:06 Temperature 97.1 F L Temperature Source Temporal Pulse Rate 73 Respiratory Rate 18 Blood Pressure 135/75 H Blood Pressure Mean 95 Pulse Ox 93 Oxygen Delivery Method Room Air Weight Weight: 88.949 kg Body Mass Index (BMI) 28.1 Physical Exam Narrative GENERAL: cooperative HEENT: Atraumatic; erythema and swelling involving the right tonsillar EYES; Anicteric, Normal Conjunctiva NECK; supple, normal thyroid, RESPIRATORY: Diminished to auscultation CARDIOVASCULAR: Regular S1 S2, GI: soft, normoactive bowel sounds, : No Renal angle tenderness; EXTREMITIES: No edema, no clubbing, MUSCULOSKELETAL: no muscle wasting NEURO: Awake; no lateralizing signs. SKIN: No Rash PSYCH; Flat affect Results Lab / Micro Data 08/14/23 10:17 08/14/23 10:17 Labs: Laboratory Results - last 24 hr 08/14/23 10:17: WBC 15.5 H, RBC 4.36 L, Hgb 14.0, Hct 41.7, MCV 95.6 H, MCH 32.1H, MCHC 33.6, RDW Std Deviation 41.2, RDW Coeff of Lori 11.8, Plt Count 297, MPV 9.2, Immature Gran % (Auto) 0.400, Neut % (Auto) 89.7 H, Lymph % (Auto) 5.8 L, Long % (Auto) 4.0, Eos % (Auto) 0.0, Baso % (Auto) 0.1, Absolute Neuts (auto) 13.9 H, Absolute Lymphs (auto) 0.90, Nucleated RBC % 0, Sodium 136, Potassium 4.5, Chloride 105, Carbon Dioxide 25.0, Anion Gap 6, BUN 18, Creatinine 0.96, Estim Creat Clear Calc 88.43, Est GFR (MDRD) Af Amer 101, Est GFR (MDRD) Non-Af 84, BUN/Creatinine Ratio 18.7, Glucose 142 H, Calcium 9.3 Micro: Microbiology 08/14/23 10:15 Mucosa - Throat Streptococcus pyogenes (PCR) - Final Imaging Radiology Impression Soft Tissue Neck CT 08/14/23 10:08 IMPRESSION: Right-sided acute tonsillitis associated with a 2.6 x 2.4 x 2.9 cm peritonsillar abscess. Atherosclerosis. Emphysema. Electronically Signed: Eli Gardner MD at 11:41 EDT , Assessment & Plan Assessment/Plan (1) Abscess, peritonsillar: PLAN: Plan Patient is a 63-year-old gentleman presented with earache and sore throat imaging studies demonstrated right-sided acute tonsillitis with peritonsillar abscess 1. Acute tonsillitis with peritonsillar abscess ? Imaging studies obtained on admission did show Right-sided acute tonsillitis associated with a 2.6 x 2.4 x 2.9 cm peritonsillar abscess. Patient started on Unasyn in addition to pain meds admitted to regular nursing floor consultation placed to Dr. Cisco Lincoln with ENT for possible I&D 2. 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 disease ? With previous PCI. Patient is on Plavix held for biopsy involving a suspectedright breast hematoma 3. Right breast hematoma ? Suspected to be secondary to trauma from work. Patient is scheduled to undergo biopsy 4. Hypertension - Blood pressure controlled, home medications continued with dose adjustment as needed 5. Dyslipidemia -Patient is on statin therapy, continued at home dose 6. Emphysema ? PET CAT scan findings. Patient has history of tobacco dependence. Currently does not smoke 7. DVT prophylaxis ? SCDs for now with plans to initiate chemoprophylaxis following patient procedure Time spent in the patient's overall evaluation,decision-making process, review of diagnostic data, adjustment of management, discussion with other providers, nursing nursing and ancillary staff involved in patient's care documentation, 55minutes minutes Advance planning; did discuss with the patient and family regarding advanced directives as well as CODE STATUS. Did explain the various scenarios involved (FULL CODE, DNR CCA, DNR CCA with no intubation, and DNR CC and what each meant) patient elected to remain full code with CPR and intubation if warranted. Orderwas placed. Time spent on discussion 16 minutes. Charges/Coding Visit Charges Inpatient E&M: 31019 Init Hosp L2 Procedures Hospitalists Procedures: 99145 Advncd Care Plan 30 Min 08/14/23 1309 <Electronically signed by Eleno Quijano MD> Cosigner Signature (if applicable): CC: Dr. Eleno Quijano MD; Dr. David Jacobo MD~ Signed [facility] Work Phone: Hospital Discharge instructions No data available for this section [facility] Progress note No data available for this section [facility] Reason for referral (narrative)No reason for referral information availableVa [facility] Work Phone: Chief Complaint and Reason for Visit Chief Complaint 3 M FU PAIN- COPY PCP Reason for Visit Atherosclerotic hear t disease of [place] coronary artery without angina pectoris Essential hypertension Myalgia Presence of stent in coronary artery Chief Complaint PAIN- COPY PCP EORDERS Chief Complaint PAIN- COPY PCP EORDERS 1 Y FU ANGIA PECTORIS ANGIA PECTORIS Reason for Visit Angina pectoris Atherosclerotic heart disease of [place] coronary artery without angina pectoris Essential hypertension HLD (hyperlipidemia) Myalgia Presence of stent in coronary artery Chief Complaint PAIN- COPY PCP EORDERS 1 Y FU ANGIA 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 CAD, STENT IN CORONARY ARTERY, ABN STRESS, CP, SOB CAD, STENT IN CORONARY ARTERY, ABN STRESS, CP, SOB Reason for Visit Angina pectoris Atherosclerotic heart disease of [place] coronary artery without angina pectoris Essential hypertension HLD (hyperlipidemia) Myalgia Presence of stent in coronary artery Chief Complaint 6 M FU INT LAB Reason for Visit Atherosclerotic hear t disease of [place] coronary artery without angina pectoris Essential hypertension HLD (hyperlipidemia) Chief Complaint 6 M FU INT LAB Dizziness and giddiness Reason for Visit Atherosclerotic hear t disease of [place] coronary artery without angina pectoris Essential hypertension HLD (hyperlipidemia) Chief Complaint RIGHT BREAST MASS Chief Complaint RIGHT BREAST MASS NICOTINE DEPENDENCE IN REMISSION Chief Complaint RIGHT BREAST MASS NICOTINE DEPENDENCE IN REMISSION Breast Mass Right Breast EORDER Reason for Visit Breast mass, right Chief Complaint RIGHT BREAST MASS NICOTINE DEPENDENCE IN REMISSION Breast Mass Right Breast EORDER RT BREAST MASS Chief Complaint RIGHT BREAST MASS NICOTINE DEPENDENCE IN REMISSION Breast Mass Right Breast EORDER RT BREAST MASS 6 M FU R EAR PAIN, THROAT PAIN ACUTE TONSILLAR ABSCESS sore throat/sore ear Reason for Visit 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 dise ase Dyslipidemia Essential hypertension Presence of stent in coronary artery Strep pharyngitis Abscess, peritonsillar Chief Complaint RIGHT BREAST MASS NICOTINE DEPENDENCE IN REMISSION Breast Mass Right Breast EORDER RT BREAST MASS 6 M FU R EAR PAIN, THROAT PAIN ACUTE TONSILLAR ABSCESS sore throat/sore ear ACUTE TONSILLAR ABSCESS Reason for Visit 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 dise ase Dyslipidemia Essential hypertension Presence of stent in coronary artery Strep pharyngitis Abscess, peritonsillar Chief Complaint RIGHT BREAST MASS NICOTINE DEPENDENCE IN REMISSION Breast Mass Right Breast EORDER RT BREAST MASS 6 M FU R EAR PAIN, THROAT PAIN ACUTE TONSILLAR ABSCESS sore throat/sore ear ACUTE TONSILLAR ABSCESS BIRADS 4 ACUTE STEMI Reason for Visit Breast mass, right 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 disease Dyslipidemia Essential hypertension Presence of stent in coronary artery Strep pharyngitis Abscess, peritonsillar Breast mass, right Acute ST elevation myocardial infarction (STEMI) Essential hypertension Chief Complaint RIGHT BREAST MASS NICOTINE DEPENDENCE IN REMISSION Breast Mass Right Breast EORDER RT BREAST MASS 6 M FU R EAR PAIN, THROAT PAIN ACUTE TONSILLAR ABSCESS sore throat/sore ear ACUTE TONSILLAR ABSCESS BIRADS 4 ACUTE STEMI ACUTE STEMI ACUTE STEMI ACUTE STEMI ACUTE STEMI Reason for Visit Breast mass, right 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 disease Dyslipidemia Essential hypertension Presence of stent in coronary artery Strep pharyngitis Abscess, peritonsillar Breast mass, right Abscess, peritonsillar Acute ST elevation myocardial infarction (STEMI) Breast mass, right 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 disease Dyslipidemia Essential hypertension Chief Complaint Admit Date 6 M FU November 02, 2024 2:13 pm Reason for Visit Admit Date 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 disease November 02, 2024 2:13pm Essential hypertension November 02, 2024 2 :13pm Presence of stent in coronary artery Joby 2024 2:13pm Chest pain November 02, 2024 2:13 pm Dyslipidemia November 02, 2024 2:13 pm Advance Directives No Advanced Directives Records Found Advance Directive Response Recorded Date/ Time Living Will No May 29, 11:29am Power of Engineer First Assistant No May 29, 2021 11:29am Advance Directive Response Recorded Date/ Time Advance Directives No December 7:41am Living Will No December 29, 2021 7:41am Power of Engineer First Assistant No December 7:41am Advance Directive Response Recorded Date/ Time Advance Directives No December 6:41am Living Will No December 29, 2021 6:41am Power of Engineer First Assistant No December 6:41am Advance Directive Response Recorded Date/ Time Name of Medical Power of Engineer First Assistant August 14, 2023 11:32am Advance Directives No December 7:41am Living Will Yes August 14, 2023 11 :32am Power of Engineer First Assistant Yes August 14, 2023 11:32am Advance Directive Response Recorded Date/ Time Name of Medical Power of Engineer First Assistant August 14, 2023 2:53pm Advance Directives No December 7:41am Living Will No August 14, 2023 2: 53pm Power of Engineer First Assistant No August 14, 2023 2:53pm Advance Directive Response Recorded Date/ Time Name of Medical Power of Engineer First Assistant August 14, 2023 2:53pm Advance Directives No December 7:41am Living Will No August 17, 2023 3: 54pm Power of Engineer First Assistant No August 17, 2023 3:54pm Advance Directive Response Recorded Date/ Time Name of Medical Power of Engineer First Assistant August 14, 2023 2:53pm Advance Directives No December 7:41am Living Will No August 17, 2023 4: 55pm Power of Engineer First Assistant No August 17, 2023 4:55pm Advance Directive Response Recorded Date/ Time Advance Directives No December 7:41am Summary Purpose Family History No Family History Records Found Additional Source Comments Goals (unrecognized section and content) Goals may be documented in a n alternate sectionGoals may be documented in an alternate sectionGoals may be documented in an alternate sectionGoals may be documented in an alternate sectionGoals may be documented in an alternate sectionGoals may be documented in an alternate section No data available for this sectionGoals may be documented in an alternate sectionGoals may be documented in an alternate sectionGoals may be documented in an alternate sectionGoals may be documented in an alternate sectionGoals may be documented in an alternate sectionGoals may be documented in an alternate sectionGoals may be documented in an alternate sectionGoals may be documented in an alternate section Care Teams (unrecognized sec tion and content) Team Status: Active Member Role Status Dates Dr. David Jacobo MD Family Provider Active Dr. David Jacobo MD Primary Care Provider Active Team Status: Inactive Member Role Status Dates Dr. David Jacobo MD Primary Care Provider, Referring P rovider Active Tanner Granger BLOCKER METAL BASE, BLOCKER METAL BASE-C Attending Provider Active Team Status: Inactive Member Role Status Dates Dr. David Jacobo MD Primary Care Provider Active Tanner Granger NP, BLOCKER METAL BASE-C Attending Provider, Referring Pro vider Active Team Status: Inactive Member Role Status Dates Dr. David Jacobo MD Primary Care Provide r, Attending Provider, Referring Provider Active Team Status: Inactive Member Role Status Dates Dr. David Jacobo MD Primary Care Provider, Referring P rovider Active Dr. Lia Mohan MD Attending Provider Active Team Status: Inactive Member Role Status Dates Dr. David Jacobo MD Primary Care Provider Active Dr. Lia Mohan MD Attending Provider, Referring Provider Active Team Status: Inactive Member Role Status Dates Dr. David Jacobo MD Primary Care Provider, Referring P rovider Active Dr. Sav Abrams MD Attending Provider Active Team Status: Inactive Member Role Status Dates Dr. David Jacobo MD Primary Care Provider, Referring P rovider Active Ana Washington NP-C Attending Provider Active Team Status: Active Member Role Status Dates Dr. David Jacobo MD Primary Care Provider Active Dr. Nydia Rivers MD Emergency Provider Active Dr. Eleno Quijano MD Attending Provider Active Team Status: Active Member Role Status Dates Dr. David Jacobo MD Primary Care Provider Active Dr. Nydia Rivers MD Emergency Provider Active Dr. Eleno Quijano MD Admit Provider, Attending Provid er Active Team Status: Active Member Role Status Dates Dr. David Jacobo MD Primary Care Provider Active Dr. Nydia Rivers MD Emergency Provider Active Dr. Eleno Quijano MD Admit Provider, Other Provider A ctive Dr. Cisco Lincoln MD Other Provider Active Dr. Dorene Rodriguez DO Attending Provider, Other Provide r Active Team Status: Inactive Member Role Status Dates Dr. David Jacobo MD Primary Care Provider Active Dr. Nydia Rivers MD Emergency Provider Active Dr. Eleno Quijano MD Admit Provider, Other Provider A ctive Dr. Cisco Lincoln MD Other Provider Active Dr. Dorene Rodriguez DO Attending Provider Active Team Status: Active Member Role Status Dates Dr. David Jacobo MD Primary Care Provider Active Dr. Lia Mohan MD Attending Provider, Referring Provider Active Team Status: Active Member Role Status Dates Dr. David Jacobo MD Primary Care Provider Active Dr. David Myers DO Emergency Provider Active Dr. Conchita Ty MD Admit Provider, Attending Prov ider Active Team Status: Active Member Role Status Dates Dr. David Jacobo MD Primary Care Provider Active Dr. David Myers DO Emergency Provider Active Dr. Conchita Ty MD Admit Provider, Other Provider Active Dr. Sav Abrams MD Attending Provider Active Team Status: Active Member Role Status Dates Dr. David Jacobo MD Primary Care Provider Active Dr. David Myers DO Emergency Provider Active Dr. Conchita Ty MD Admit Provider, Other Provider Active Dr. Dorene Rodriguez DO Attending Provider, Other Provide r Active Team Status: Active Member Role Status Dates Dr. David Jacobo MD Primary Care Provider Active Dr. David Myers DO Emergency Provider Active Dr. Conchita Ty MD Admit Provider, Other Provider Active Dr. Dorene Rodriguez DO Other Provider Active Dr. Sav Abrams MD Attending Provider Active Team Status: Active Member Role Status Dates Dr. David Jacobo MD Primary Care Provider Active Dr. Sav Abrams MD Attending Provider Active Team Status: Inactive Member Role Status Dates Dr. David Jacobo MD Primary Care Provider Active Dr. David Myers DO Emergency Provider Active Dr. Conchita Ty MD Admit Provider, Other Provider Active Dr. Dorene Rodriguez DO Attending Provider Active [employer] Relationship Specialty Start Date End Date David Jacobo MD PCP - General Family Medicine 12/31/15 Gaming Associate Relationship Specialty Start Date End Date David Jacobo MD PCP - General Family Medicine 12/31/15 Team Status: Active Member Role/Relationship Status Dates Dr. David Jacobo MD Family Provider Active Dr. David Jacobo MD Primary Care Provider Active Team Status: Inactive Member Role/Relationship Status Dates Dr. David Jacobo MD Primary Care Provider Active Start: July 27, 2024 End: July 27, 2024 Dr. David Jacobo MD Attending Provider Active St art: July 27, 2024 End: July 27, 2024 Dr. David Jacobo MD Referring Provider Active St art: July 27, 2024 End: July 27, 2024 Team Status: Inactive Member Role/Relationship Status Dates Dr. David Jacobo MD Primary Care Provider Active Start: November 02, 2024 End: November 02, 2024 Dr. David Jacobo MD Referring Provider Active St art: November 02, 2024 End: November 02, 2024 Vi Prieto [employer], [employer] Attending Provider Active Start: November 02, 2024 End: November 02, 2024 (unrecognized sect ion and content) No Status Records FoundNo Status Records FoundNo Status Records Found INFORMATION SOURCE (unrecogn ized section and content) DATE CREATED AUTHOR 01/25/2023 [facility] ([place]) DATE CREATED AUTHOR AUTHOR'S ORGANIZ ATION 12/14/2023 [facility] DATE CREATED AUTHOR AUTHOR'S ORGANIZ ATION 11/27/2024 [facility] Source Comments (unrecognize d section and content) In the event this informatio n is protected by the Federal Confidentiality of Alcohol and Drug Abuse Patient Records regulations: The Federal rules restrict any use of the information to criminally investigate or prosecute any alcohol or drug abuse patient.[facility] the event this information is protected by the Federal Confidentiality of Alcohol and Drug Abuse Patient Records regulations: The Federal rules restrict any use of the information to criminally investigate or prosecute any alcohol or drug abuse patient.[facility] Reason for Visit (unrecogniz ed section and content) Reason Comments Cough Drainage, sore throa t, fever, ribs sore from coughing x 3 days Reason Comments Results FOR RECORDS PERTAINING TO PATIENTS WHO ARE [...] BE BASED ON THE PRIMARY CLINICAL RECORDS. [facility]. provides no warranty or guarantee of the accuracy or completeness of information in this document.
--- NOTE | 2024-12-11 15:53 | STRESSREP_ITS ---
Stress Test Report Date: 12/06/2024 Procedure: Exercise tolerance test/imaging study Indications: Chest pain/CAD Consent: Per the patient Procedure: The patient exercised on a Nikolas protocol for 7 minutes and 45 seconds achieving a peak heart rate of 116 bpm (74% predicted maximal heart rate) with a peak blood pressure 182/62 mmHg and a peak MET capacity of 10.1 METs. The baseline ECG demonstrated sinus rhythm with inferior ST changes. The peak exercise ECG was nondiagnostic because of baseline abnormality. There were no cardiac dysrhythmias pretest, during exercise, or recovery. The functional capacity was considered good for age. There was no complaint of chest discomfort during exercise or recovery. The examination was discontinued secondary to dyspnea and hip discomfort. The patient was injected with 11.3 mCi of technetium 99m Cardiolite and subsequently rest SPECT Cardiolite nuclear imaging was obtained in the horizontal long, vertical long, and short axis views. Post-exercise, the patient was injected with 34.0 mCi of technetium 99m Cardiolite and subsequently stress SPECT Cardiolite nuclear imaging was obtained in the horizontal long, vertical long, and short axis views. A gated Cardiolite study at peak stress was obtained. Rest and stress SPECT Cardiolite nuclear imaging status post realignment, normalization, and attenuation correction, demonstrates mildly reduced perfusion of the inferior wall post exercise stress. This is suggestive of mild ischemia of the inferior wall. There is end systolic thickening and brightening. The gated Cardiolite study demonstrates myocardial thickening and inward wall motion. The reported LVEF is 70%. Impression: 1. Technically adequate exercise tolerance test 2. Peak exercise ECG nondiagnostic 3. There were no cardiac dysrhythmias pretest, during exercise, or recovery 4. Rest and stress SPECT Cardiolite nuclear imaging demonstrate mildly reduced perfusion of the inferior wall poststress, suggestive of ischemia. 5. The gated Cardiolite study reports an LVEF of 70%. This note was generated with [employer] software. It may contain incorrect words, spelling, and punctuation that were not noted in checking the note before signing.
== END | disposition home or self-care (01) ==
LOC: CVS 06:38
PROVIDERS: PCP Family Medicine; Referring Provider Nurse Practitioner Gerontology; Visit Provider Nurse Practitioner Gerontology
DX: R07.9 Chest pain, unspecified (principal); Z95.5 Presence of coronary angioplasty implant and graft
CPT/HCPCS: 78452; 93017; A9500; A4216

== ENCOUNTER 2024-12-10 07:57 | Emergency (ER) | payer OTHER, SELFPAY ==
[2021-03-30 09:40] VITALS: BMI 25.4
[2024-12-10 07:58] VITALS: BP 147/114; PULSE 55; RESP 16; TEMP 36.1; O2SAT 100; BMI 27.6
--- NOTE | 2024-12-10 08:11 | EX.ED.UPPERE ---
HPI History of Present Illness HPI Narrative: Patient presents with pain and swelling to his right elbow that has been getting worse over the past 4 days. Patient states he had a stress test 3 days ago and had 2 attempts of an IV in his right antecubital area. Patient states that since that time he has noticed increased pain and swelling in his elbow. Patient denies any other trauma or injury. Patient states it is worse with any movement. Patient describes it as aching and burning. Patient states it is better with rest and in certain positions. Patient admits to some tingling into his hand. Patient denies any fevers or chills. Patient denies any chest pain or shortness of breath. Chief Complaint: Upper Extremity Injury Informant: patient Onset/Context/Timing Onset: Days (4) Context: Gradual Onset Timing: Continuous Quality of Pain: Aching and Burning Location: Right elbow Worsened by: Movement Relieved by: Certain positions Associated Symptoms Associated Symptoms: Positive for Parasthesia; Negative for Weakness or Loss of Funtion [facility] Medical History Acute ST elevation myocardial infarction (STEMI) (~08/17/23) Strep pharyngitis Abscess, peritonsillar Dyslipidemia 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 disease Breast mass, right History of left heart catheterization (LHC) (~12/29/21) SOB (shortness of breath) Abnormal stress test Angina pectoris HLD (hyperlipidemia) Myalgia Tobacco abuse Essential hypertension Presence of stent in coronary artery (~11/15/20) Atherosclerotic heart disease of [place] coronary artery without angina pectoris STEMI (ST elevation myocardial infarction) Psoriasis Smoker Psoriatic arthritis Home Medications ?Medication ?Instructions ?Recorded ?Last Taken ?Type acetaminophen 650 mg 1,300 mg PO BID PRN pain 05/09/24 12/09/24 History tablet,extended release (Tylenol Arthritis Pain) rosuvastatin 10 mg tablet 10 mg PO QHS #90 tabs 05/21/24 12/09/24 Rx apremilast 30 mg tablet (Otezla) 30 mg PO BID 11/02/24 12/10/24 History naproxen sodium 220 mg capsule 220 mg PO Q12H PRN pain 11/02/24 Unknown History (Aleve) aspirin 81 mg tablet,delayed 81 mg PO DAILY #90 tabs 11/30/24 12/09/24 Rx release (Adult Aspirin Regimen) clopidogrel 75 mg tablet 75 mg PO DAILY #90 tabs 11/30/24 12/09/24 Rx telmisartan 80 mg tablet 80 mg PO DAILY #90 tabs 11/30/24 12/09/24 Rx cephalexin 500 mg capsule 500 mg PO Q6 #40 CAPSULES 12/10/24 Unknown Rx clobetasol 0.05 % topical ointment 1 applic topical BID 12/10/24 Unknown History diclofenac sodium 1 % topical gel 2 g topical PRN 12/10/24 12/09/24 History (Voltaren Arthritis Pain) glucosamine sulfate 500 mg tablet 500 mg PO BID 12/10/24 12/08/24 History (Glucosamine) hydrocodone-acetaminophen 5-325mg 1 tab PO Q6H PRN PRN Pain 3 days 12/10/24 Unknown Rx 5mg-325mg #10 TABLETS Allergy/AdvReac Type Severity Reaction Status Date / Time isosorbide AdvReac Intermediate Dizzy, Verified 12/10/24 07:58 lightheaded, short of breath lisinopril AdvReac Intermediate dry Verified 12/10/24 07:58 persistent cough atorvastatin AdvReac Mild Myalgias Verified 12/10/24 07:58 Family History Mother Thyroid disorder Surgical History Presence of stent of CABG (~08/17/23) History of coronary artery stent placement Presence of coronary angioplasty implant and graft (~11/15/20) Social History Smoking Status: Former smoker Tobacco: How many years used: 42 how long ago did patient quit smokin months alcohol intake: current details: occassional substance use type: does not use caffeine: Yes Type: coffee Number of servings: 1 ROS ROS ED Constitutional Constitutional ED: Denies chills or fever(s) Eyes Eyes: Denies blurry vision or change in vision ENT ENT ED: Denies rhinorrhea or sore throat Cardiovascular Cardiovascular: Denies chest pain or palpitations Respiratory/Chest Respiratory/Chest: Denies cough or dyspnea Gastrointestinal Gastrointestinal: Denies nausea or vomiting Genitourinary Genitourinary ED: Denies dysuria or hematuria Musculoskeletal Musculoskeletal: Reports back pain and neck pain Integumentary Denies abscess or rash Neurologic Neurologic: Reports headache(s); Denies weakness Allergic/Immunologic Allergic/Immunologic ED: Denies mouth swelling or urticaria EXAM Physical Exam Const Vital Signs: 12/10/24 07:58 Temperature 96.9 F L Temperature Source Temporal Pulse Rate 55 L Respiratory Rate 16 Blood Pressure 147/114 H Blood Pressure Mean 125 Pulse Ox 100 Oxygen Delivery Method Room Air Positive well nourished and well developed General Appearance ED: well developed and NAD HEENT Reports moist mucous membranes normocephalic and atraumatic Neck full ROM and supple Extremity Extremity Narrative: There is tenderness over the right elbow, worse on the medial aspect. There is some tenderness over the medial aspect of the right upper arm. There is minimal erythema. There is no warmth noted. Range of motion is limited in all motions of the right elbow secondary to pain. Strength is 5/5 in the radial, median, and ulnar areas. Sensation is intact to light touch in the radial, median, and ulnar areas. Radial pulses are equal bilaterally. Neuro oriented x3, CN's II-XII intact bilaterally, moves all extremities, no focal motor deficits and no sensory deficits noted Sensorium / Orientation: alert Motor Exam: strength 5/5 throughout Psych mental status grossly normal MDM MDM MDM Narrative Medical decision making narrative: Differential diagnosis includes DVT, elbow effusion, lymphangitis, and cellulitis. CBC will be obtained to assess for leukocytosis and anemia. Basic metabolic profile will be obtained to assess for electrolyte abnormality and renal function. Venous duplex of the right upper extremity will be obtained to assess for DVT. X-rays of the right elbow will be obtained to assess for effusion and loose body. History & Record Review Additional record(s) reviewed:: Prior inpatient record, Prior ED visit and Prior labs Lab Data Attestation: I reviewed the patient's lab results. Lab results narrative: CBC was reviewed. There is a mild leukocytosis of 12.4. The remainder is within normal limits. Basic metabolic profile was reviewed. Glucose was slightly elevated at 122. The remainder is within normal limits. Radiography Diagnostic Testing: Venous duplex of the right upper extremity was obtained. There is no evidence of DVT. Treatment and Re-Evaluation Narrative: Patient was given an injection of morphine. Patient was feeling better on reevaluation. Patient was advised of his findings. Patient was instructed to use warm compresses to the area. Patient was advised that this is most likely superficial phlebitis, likely from the IV start. Patient was instructed to follow-up with his primary care physician in 5 to 7 days. Patient was given a prescription for short course of [place]. Patient was also given a prescription for Keflex. Patient was instructed to return if worse in any way. Patient understood and was agreeable with the plan. All questions were answered. Discharge Plan Triage Chief Complaint: Upper Extremity Injury ED Provider: Jer Myers Dx/Rx/DC Orders Clinical Impression: Superficial phlebitis of arm, Essential hypertension Instructions: ED Thrombophlebitis, Superficial Prescriptions: New hydrocodone-acetaminophen 5-325 mg tablet 1 tab PO Q6H PRN PRN (Reason: Pain) 3 Days Qty: 10 0RF cephalexin 500 mg capsule 500 mg PO Q6 Qty: 40 0RF No Action acetaminophen [Tylenol Arthritis Pain] 650 mg tablet extended release 1,300 mg PO BID PRN (Reason: pain) Otezla 30 mg tablet 30 mg PO BID naproxen sodium [Aleve] 220 mg capsule 220 mg PO Q12H PRN (Reason: pain) clobetasol 0.05 % ointment 1 applic topical BID glucosamine sulfate [Glucosamine] 500 mg tablet 500 mg PO BID Rx Instructions: administer with meals diclofenac sodium [Voltaren Arthritis Pain] 1 % gel 2 g topical PRN rosuvastatin 10 mg tablet 10 mg PO QHS Qty: 90 3RF telmisartan 80 mg tablet 80 mg PO DAILY Qty: 90 3RF clopidogrel 75 mg tablet 75 mg PO DAILY Qty: 90 3RF aspirin [Adult Aspirin Regimen] 81 mg tablet,delayed release (DR/EC) 81 mg PO DAILY Qty: 90 3RF Primary Care Provider: Jer Jacobo Referrals: Jer Jacobo MD [Primary Care Provider] - 3-5 Days Print Language: [place] Disposition Disposition: Home, Self Care
--- NOTE | 2024-12-10 08:22 | VDUE_ITS ---
Reason For Study Reason For Study: Right arm pain Right Proximal Right jugular vein is spontaneous, widely patent, phasic, with no intraluminal echogenicity noted. Right subclavian vein is spontaneous, widely patent, phasic, with no intraluminal echogenicity noted. Right Lower Arm Right radial vein is compressible. Right ulnar vein is compressible. Right Arm Right axillary vein is spontaneous, patent, phasic, competent, compressible and demonstrates augmentation. Right brachial vein is compressible. Right cephalic vein is compressible. Right basilic vein is compressible. Procedure This was a unilateral right upper extremity venous doppler examination. Exam performed portable in ED. A preliminary report was called and/or faxed to Dr. Myers. VL/Venous Duplex US, Unilateral Interpretation Summary Deep veins of the right upper extremity are patent and compressible segmentally . There is no evidence of deep vein thrombosis. The superficial veins of the right upper extremity, the basilic and cephalic veins, are patent and compressible. There is no evidence of right upper extremity superficial thrombo phlebitis involving the veins imaged. Ordering Physician: Jer Myers Referring Physician: Jer Jacobo MD Performed By: Bianca Mclean RVT ???
--- NOTE | 2024-12-10 08:23 | RAD_ITS ---
PROCEDURE: ELBOW MIN 3 VIEWS 12/10/2024 REASON FOR EXAM: INJURY/PAIN TECHNIQUE: Procedure Code: RADEL Modality: DX Procedure: ELBOW MIN 3 VIEWS Laterality: Right COMPARISON: None FINDINGS: Bones: An AP and a true lateral were not provided. No definite fracture seen. Joints: Degenerative changes radiocapitellar, humeral ulnar and proximal radioulnar joints. Soft tissues: Soft tissues are unremarkable. RAD/Elbow min 3 Views IMPRESSION: Limited by positioning. Grossly, no acute abnormality. Degenerative changes. Reading Location: [id number]
--- OUTSIDE RECORDS SUMMARY | 2024-12-10 08:33 | XMS RPT_ITS | CCD ---
Author Organization [facility] Care Team Providers Care Insurance Underwriter Name Role Phone Dr. David Jacobo Primary Care Provider [phone] Dr. David Jacobo Referring Provider 1([facility])[phone] Roof SCENE AND LIGHTING DESIGN LECTURER, SCENE AND LIGHTING DESIGN LECTURER-Juwan Downs Attending Provider Dr. David Jacobo Primary Care Provider Dr. David Jacobo Referring Provider 1([facility])[phone] Dr. César Pichardo Attending Provider 1([facility])[phone] Dr. César Pichardo Referring Provider Dr. César Pichardo Other Provider Dr. David Jacobo Primary Care Provider [phone] David Jacobo Referring Provider 1([facility])[phone] Roof SCENE AND LIGHTING DESIGN LECTURER, ROSEANN-Juwan Downs Attending Provider DAVID JACOBO MD Primary Care Physician DAVID JACOBO MD Primary Care Unavailable ADDIE ONTIVEROS MD Attending Unavailable Dr. David Jacobo Primary Care Provider Dr. David Jacobo Referring Provider [phone] Dr. Lia Mohan Attending Provider Dr. Sav Abrams Attending Provider YOLETTE Washington Attending Provider Dr. Nydia Rivers Emergency Provider Dr. Eleno Quijano Attending Provider Unavailable Dr. Eleno Quijano Admit Provider Unavailable Dr. Eleno Quijano Other Provider Unavailable Dr. Cisco Lincoln Other Provider Dr. Dorene Rodriguez Attending Provider Dr. Dorene Rodriguez Other Provider Dr. David Myers Emergency Provider Dr. Conchita Ty Admit Provider Dr. Conchita Ty Other Provider Donnell MORENO, David Del Rosario Primary Care Provider [phone] DAVID JACOBO Primary Care Unavailable Donnell MORENO, Dr. Randle Primary Care Provider [phone] Donnell MORENO, Dr. Randle Attending Provider Dr. David Jacobo MD Referring Provider Conner SCENE AND LIGHTING DESIGN LECTURER-C, Vi Attending Provider [phone] Jacobo, David Primary Care Unavailable Jose AlbertoSav Attending Unavailable Jacobo, David Referring Unavailable Jacobo, David Primary Care Unavailable Conner WHITFIELD, Vi Attending Unavailable Jacobo, David Referring Unavailable Jacobo, David Primary Care Unavailable Jose Alberto, Sav Attending Unavailable Jose Alberto, Sav Referring Unavailable Jacobo, David Primary Care Unavailable Jacobo, David Attending Unavailable Jacobo, David Referring Unavailable Jacobo, David Referring Unavailable Jacobo, David Primary Care Unavailable Jacobo, David Attending Unavailable Jacobo, David Primary Care Unavailable Conner SCENE AND LIGHTING DESIGN LECTURER, Vi Attending Unavailable Conner SCENE AND LIGHTING DESIGN LECTURER, Vi Referring Unavailable Allergies Allergy Classification Reported Allergen(s) Allergy Type Date of Onset Reaction(s) Facility (11 sources) Isosorbide Drug Allergy 3 Dizzy, lightheaded, short of breath [facility] (11 sources) Lisinopril Drug Allergy 3 dry persistent cough [facility] (1 source) atorvastatin Drug Allergy 5 Myalgias [facility] (1 source) atorvastatin Drug Allergy 5 [facility] Repository (1 source) Isosorbide Drug Allergy 5 [facility] Repository (1 source) Lisinopril Drug Allergy 5 [facility] Repository Medications Current Medications Medication Drug [...] tablet Active 80 mg PO DAILY 90 December 09, 2023 11:26am Start: 12-10-2022 End: [...] tablet Discontinued 5 mg PO DAILY 90 August 02, 2023 12:00am September 20, 2023 [...] Discontinu ed 20 MG PO AT BEDTIME 90 July 10, 2021 [...] hr Discontinued 30 mg PO DAILY 90 4 December 29, 2021 11:15am January 01, 2022 9:25am Start: 01-22-2021 End: 11-18-2021 take 1 tablet by mouth once daily, then take 1 tablet by mouth every twenty-four hours Isosorbide Mononitrate 30 mg tablet extended release 24 hr Discontinued 30 mg PO DAILY January 22, 2021 12:16pm November 18, 2021 2:58pm On Hold: ? Migraine 06/02/21 lisinopril 20 mg oral tablet (20 sources) Angiotensin Converting Enzyme Inhibitor Start: 03-20-2021 End: 03-20-2021 take 2 tablets by mouth once daily Lisinopril 10 mg tablet Discontinued 20 mg PO DAILY March 20, 2021 5:34pm March 20, 2021 5:36pm Start: 03-20-2021 End: 03-20-2021 take 20 mg by mouth once daily Lisinopril Discontinued 20 MG PO DAILY March 20, 2021 5:34pm March 20, 2021 5:36pm Start: 03-20-2021 End: 02-01-2022 take 1 tablet by mouth once daily Lisinopril 20 mg tablet Discontinued 20 mg PO DAILY December 07, 2021 10:40am February 01, 2022 5:33pm Start: 11-17-2020 End: 03-20-2021 take 1 tablet by mouth once daily Lisinopril 10 mg tablet Discontinued 10 mg PO DAILY December 02, 2020 2:01pm March 20, 2021 5:34pm losartan potassium 50 mg oral tablet (11 sources) Angiotensin 2 Receptor Bambi Start: 02-01-2022 End: 12-10-2022 take 1 tablet by mouth once daily Losartan 50 mg tablet Discontinued 50 mg PO DAILY 30 February 01, 2022 12:00am December 10, 2022 2:29pm [...] Coronary atherosclerosis; Translations: [Atherosclerotic heart disease of [place] coronary artery without angina pectoris] Onset: 11-02-2024 Chronic Coronary atherosclerosis and other heart disease (20 sources) Stented coronary artery; Translations: [Presence of coronary angioplasty implant and graft] Onset: 11-09-2020 Episodic Comment on above: PTCA/BELKYS Mid RPDA us ing [facility] [place] 2.75x34 mm 08/17/23 Disorders of lipid metabolism [...] Facility Cardiology Visit Reporton Cardiology Visit Report [facility] [address] [place] [address] OFFICE VISIT Date of Service: 11/02/24 MR#: [id number] Acct: [id number] Name: FUAD KERR Rep #: [id number] : 1960 Provider: YOLETTE caballero Age/Sex: 64/M [place] [facility] [place] [facility] 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 Normal [facility] Absolute lymphocyte countOrd ered By: David Jacobo on 07-27-2024 Lymphocytes Auto (Unsp spec) [#/Vol] 2.07 10*3/uL 0.83-4.51 [facility] Absolute neutrophil countOrd ered By: David Jacobo on 07-27-2024 Neutrophils (Bld) [#/Vol] 3.9 10*3/uL 2.0-7.7 [facility] Anion gap in Serum or Plasma Ordered By: David Jacobo on 07-27-2024 Anion gap [Moles/Vol] 11 mmol/L 5-[address] [facility] Automated lymphocyte count a s percentage of total leukocytesOrdered By: David Jacobo on 07-27-2024 Lymphocytes/100 WBC Auto (Unsp spec) 30.0 % 19-41 [facility] BUN/creatinine ratioOrdered By: David Jacobo on 07-27-2024 Urea nitrogen/Creatinine [Mass ratio] 17.8 mg/mg 10-20 [facility] Basophil percentageOrdered B y: David Jacobo on 07-27-2024 Basophils/100 WBC (Bld) 0.3 % 0-1 [facility] Bilirubin, totalOrdered By: David Jacobo on 07-27-2024 Bilirubin [Mass/Vol] 0.33 mg/dL 0.00-1.30 [facility] CBC W/Diff, Automatedon 07-10 Absolute Lymph 2.07 X10 3/uL Normal 0.83-4.51 [facility] Comment on above: Order Comment: Order Date: 07/27/24 Order Info: 0184-1 - CBCD Performed By: #### L 100.0100, L500.4100, L500.4050 #### [facility] [address] [place], [address] Absolute Neut 3.9 X10 3/uL Normal 2.0-7.7 [facility] Comment on above: Order Comment: Order Date: 07/27/24 Order Info: 0184-1 - CBCD Performed By: #### L 100.0100, L500.4100, L500.4050 #### [facility] [address] [place], [address] Basophils/100 WBC (Bld) 0.3 % Normal 0-1 [facility] Comment on above: Order Comment: Order Date: 07/27/24 Order Info: 0184-1 - CBCD Performed By: #### L 100.0100, L500.4100, L500.4050 #### [facility] [address] [place], [address] Eosinophils/100 WBC (Bld) 1.4 % Normal 0-5 [facility] Comment on above: Order Comment: Order Date: 07/27/24 Order Info: 0184-1 - CBCD Performed By: #### L 100.0100, L500.4100, L500.4050 #### [facility] [address] [place], [address] Erythrocyte distribution width (RBC) [Ratio] 12.4 % Normal 11.6-14.6 [facility] Comment on above: Order Comment: Order Date: 07/27/24 Order Info: 0184-1 - CBCD Performed By: #### L 100.0100, L500.4100, L500.4050 #### [facility] [address] [place], [address] Hematocrit (Bld) [Volume fraction] 40.4 % Normal 40-54 [facility] Comment on above: Order Comment: Order Date: 07/27/24 Order Info: 018- - CBCD Performed By: #### L 100.0100, L500.4100, L500.4050 #### [facility] [address] [place], [address] Hemoglobin (Bld) [Mass/Vol] 13.5 g/dL Normal 13.0-16.5 [facility] Comment on above: Order Comment: Order Date: 07/27/24 Order Info: 018- - CBCD Performed By: #### L 100.0100, L500.4100, L500.4050 #### [facility] [address] [place], [address] IG% 0.300 Normal 0.0-0.9 [facility] Comment on above: Order Comment: Order Date: 07/27/24 Order Info: 018- - CBCD Result Comment: IG% - Immature Granulocytes (promyelocytes, myelocytes and metamyelocytes) > 1% indicates that a LEFT SHIFT is Present. Performed By: #### L 100.0100, L500.4100, L500.4050 #### [facility] [address] [place], [address] Lymphocytes/100 WBC (Bld) 30.0 % Normal 19-41 [facility] Comment on above: Order Comment: Order Date: 07/27/24 Order Info: 018- - CBCD Performed By: #### L 100.0100, L500.4100, L500.4050 #### [facility] [address] [place], [address] MCH (RBC) [Entitic mass] 32.3 pg High 27.0-32.0 [facility] Comment on above: Order Comment: Order Date: 07/27/24 Order Info: 018- - CBCD Performed By: #### L 100.0100, L500.4100, L500.4050 #### [facility] [address] [place], [address] MCHC (RBC) [Mass/Vol] 33.4 g/dL Normal 32-[address] [facility] Comment on above: Order Comment: Order Date: 07/27/24 Order Info: 0184-1 - CBCD Performed By: #### L 100.0100, L500.4100, L500.4050 #### [facility] [address] [place], [address] MCV (RBC) [Entitic vol] 96.7 fL High 80-94 [facility] Comment on above: Order Comment: Order Date: 07/27/24 Order Info: 0184-1 - CBCD Performed By: #### L 100.0100, L500.4100, L500.4050 #### [facility] [address] [place], [address] Monocytes/100 WBC (Bld) 11.3 % High 0-10 [facility] Comment on above: Order Comment: Order Date: 07/27/24 Order Info: 0184-1 - CBCD Performed By: #### L 100.0100, L500.4100, L500.4050 #### [facility] [address] [place], [address] Neutrophils/100 WBC (Bld) 56.7 % Normal 47-70 [facility] Comment on above: Order Comment: Order Date: 07/27/24 Order Info: 0184-1 - CBCD Performed By: #### L 100.0100, L500.4100, L500.4050 #### [facility] [address] [place], [address] Nucleated RBC (Bld) [#/Vol] 0 10*3/uL Normal 0-5 [facility] Comment on above: Order Comment: Order Date: 07/27/24 Order Info: 0184-1 - CBCD Performed By: #### L 100.0100, L500.4100, L500.4050 #### [facility] [address] [place], [address] Platelet mean volume (Bld) [Entitic vol] 10.0 fL Normal 6.2-12.0 [facility] Comment on above: Order Comment: Order Date: 07/27/24 Order Info: 0184- - CBCD Performed By: #### L 100.0100, L500.4100, L500.4050 #### [facility] [address] [place], [address] Platelets (Bld) [#/Vol] 261 10*3/uL Normal 150-450 [facility] Comment on above: Order Comment: Order Date: 07/27/24 Order Info: 0184- - CBCD Performed By: #### L 100.0100, L500.4100, L500.4050 #### [facility] [address] [place], [address] RBC (Bld) [#/Vol] 4.18 10*6/uL Low 4.6-6.2 [facility] Comment on above: Order Comment: Order Date: 07/27/24 Order Info: 0184- - CBCD Performed By: #### L 100.0100, L500.4100, L500.4050 #### [facility] [address] [place], [address] RDW SD 44.3 fl High 35.1-43.9 [facility] Comment on above: Order Comment: Order Date: 07/27/24 Order Info: 0184-1 - CBCD Performed By: #### L 100.0100, L500.4100, L500.4050 #### [facility] [address] [place], [address] WBC (Bld) [#/Vol] 6.9 10*3/uL Normal 4.4-11.0 [facility] Comment on above: Order Comment: Order Date: 07/27/24 Order Info: 0184-1 - CBCD Performed By: #### L 100.0100, L500.4100, L500.4050 #### [facility] [address] [place], [address] Calculated very low density lipoprotein (VLDL) cholesterol measurementOrdered By: David Jacobo on 07-27-2024 Calculated very low density lipoprotein (VLDL) cholesterol measurement 47 mg/dL High 5-40 [facility] Carbon dioxide, total [Moles /volume] in Central venous bloodOrdered By: David Jacobo on 07-27-2024 CO2 [Moles/Vol] 20.6 mmol/L Low 21.0-32.0 [facility] Chloride assayOrdered By: Italo Jacobo on 07-27-2024 Chloride [Moles/Vol] 105 mmol/L 98-108 [facility] Comprehensive Metabolic Prof ilon 07-27-2024 Albumin [Mass/Vol] 4.5 g/dL Normal 3.4-4.8 [facility] Comment on above: Order Comment: Order Date: 07/27/24 Order Info: [id number] - CMP Order Info: [id number] - LIPID Performed By: #### L 100.0100, L500.4100, L500.4050 #### [facility] [address] [place], [address] Albumin/Globulin [Mass ratio] 1.8 {ratio} Normal 0.9-2.4 [facility] Comment on above: Order Comment: Order Date: 07/27/24 Order Info: [id number] - CMP Order Info: [id number] - LIPID Performed By: #### L 100.0100, L500.4100, L500.4050 #### [facility] [address] [place], [address] ALK PHOS 72 U/L Normal 40-129 [facility] Comment on above: Order Comment: Order Date: 07/27/24 Order Info: [id number] - CMP Order Info: [id number] - LIPID Performed By: #### L 100.0100, L500.4100, L500.4050 #### [facility] [address] [place], [address] ALT [Catalytic activity/Vol] 22 U/L Normal <=46 [facility] Comment on above: Order Comment: Order Date: 07/27/24 Order Info: [id number] - CMP Order Info: [id number] - LIPID Performed By: #### L 100.0100, L500.4100, L500.4050 #### [facility] [address] [place], [address] AST [Catalytic activity/Vol] 25 U/L Normal <=37 [facility] Comment on above: Order Comment: Order Date: 07/27/24 Order Info: [id number] - CMP Order Info: [id number] - LIPID Performed By: #### L 100.0100, L500.4100, L500.4050 #### [facility] [address] [place], [address] Bilirubin [Mass/Vol] 0.33 mg/dL Normal 0.00-1.30 [facility] Comment on above: Order Comment: Order Date: 07/27/24 Order Info: [id number] - CMP Order Info: [id number] - LIPID Performed By: #### L 100.0100, L500.4100, L500.4050 #### [facility] [address] [place], [address] BUN/CRE 17.8 RATIO Normal 10-20 [facility] Comment on above: Order Comment: Order Date: 07/27/24 Order Info: [id number] - CMP Order Info: [id number] - LIPID Performed By: #### L 100.0100, L500.4100, L500.4050 #### [facility] [address] [place], [address] Calcium [Mass/Vol] 9.0 mg/dL Normal 7.6-11.0 [facility] Comment on above: Order Comment: Order Date: 07/27/24 Order Info: [id number] - CMP Order Info: [id number] - LIPID Performed By: #### L 100.0100, L500.4100, L500.4050 #### [facility] [address] [place], [address] Chloride [Moles/Vol] 105 mmol/L Normal 98-108 [facility] Comment on above: Order Comment: Order Date: 07/27/24 Order Info: [id number] - CMP Order Info: [id number] - LIPID Performed By: #### L 100.0100, L500.4100, L500.4050 #### [facility] [address] [place], [address] CO2 [Moles/Vol] 20.6 mmol/L Low 21.0-32.0 [facility] Comment on above: Order Comment: Order Date: 07/27/24 Order Info: [id number] - CMP Order Info: [id number] - LIPID Performed By: #### L 100.0100, L500.4100, L500.4050 #### [facility] [address] [place], [address] Creatinine [Mass/Vol] 1.01 mg/dL Normal 0.70-1.[address] [facility] Comment on above: Order Comment: Order Date: 07/27/24 Order Info: [id number] - CMP Order Info: [id number] - LIPID Performed By: #### L 100.0100, L500.4100, L500.4050 #### [facility] [address] [place], [address] GAP 11 Normal 5-15 [facility] Comment on above: Order Comment: Order Date: 07/27/24 Order Info: [id number] - CMP Order Info: [id number] - LIPID Performed By: #### L 100.0100, L500.4100, L500.4050 #### [facility] [address] [place], [address] GFR/1.73 sq M.predicted among non-blacks MDRD (S/P/Bld) [Vol rate/Area] 83 mL/min/{1.73_m2} Normal >60 [facility] Comment on above: Order Comment: Order Date: 07/27/24 Order Info: [id number]- - CMP Order Info: [id number] - LIPID Result Comment: mL/m in/1.73m2 CKD-EPI Creatinine Equation (2020) Performed By: #### L 100.0100, L500.4100, L500.4050 #### [facility] [address] [place], [address] Globulin (S) [Mass/Vol] 2.6 g/dL Normal 2.2-4.2 [facility] Comment on above: Order Comment: Order Date: 07/27/24 Order Info: [id number] - CMP Order Info: [id number] - LIPID Performed By: #### L 100.0100, L500.4100, L500.4050 #### [facility] [address] [place], [address] Glucose [Mass/Vol] 88 mg/dL Normal 70-99 [facility] Comment on above: Order Comment: Order Date: 07/27/24 Order Info: [id number]- - CMP Order Info: [id number] - LIPID Performed By: #### L 100.0100, L500.4100, L500.4050 #### [facility] [address] [place], [address] Potassium [Moles/Vol] 4.7 mmol/L Normal 3.3-5.[address] [facility] Comment on above: Order Comment: Order Date: 07/27/24 Order Info: [id number]- - CMP Order Info: [id number] - LIPID Performed By: #### L 100.0100, L500.4100, L500.4050 #### [facility] [address] [place], [address] Sodium [Moles/Vol] 136 mmol/L Normal 133-145 [facility] Comment on above: Order Comment: Order Date: 07/27/24 Order Info: [id number] - CMP Order Info: [id number] - LIPID Performed By: #### L 100.0100, L500.4100, L500.4050 #### [facility] [address] [place], [address] T PROT 7.1 g/dL Normal 5.9-8.4 [facility] Comment on above: Order Comment: Order Date: 07/27/24 Order Info: [id number] - CMP Order Info: [id number] - LIPID Performed By: #### L 100.0100, L500.4100, L500.4050 #### [facility] [address] [place], [address] Urea nitrogen [Mass/Vol] 18 mg/dL Normal 4-19 [facility] Comment on above: Order Comment: Order Date: 07/27/24 Order Info: [id number] - CMP Order Info: [id number] - LIPID Performed By: #### L 100.0100, L500.4100, L500.4050 #### [facility] [address] [place], [address] Eosinophil percentageOrdered By: David Jacobo on 07-27-2024 Eosinophils/100 WBC (Bld) 1.4 % 0-5 [facility] Erythrocyte distribution wid th ratioOrdered By: David Jacobo on 07-27-2024 Erythrocyte distribution width (RBC) [Ratio] 12.4 % 11.6-14.6 [facility] Erythrocyte distribution wid th standard deviationOrdered By: David Jacobo on 07-27-2024 Erythrocyte distribution width (RBC) [Ratio] 44.3 fl High 35.1-43.9 [facility] Glomerular filtration rate ( GFR) estimation/1.73 sq m using serum, plasma, or whole bOrdered By: David Jacobo on 07-27-2024 GFR/1.73 sq M.predicted among non-blacks MDRD (S/P/Bld) [Vol rate/Area] 83 mL/min/{1.73_m2} >60 [facility] Comment on above: mL/min/1.73m2 CKD-EP I Creatinine Equation (2020) Hematocrit Auto (Bld) [Volum e fraction]Ordered By: David Jacobo on 07-27-2024 Hematocrit (Bld) [Volume fraction] 40.4 % 40-54 [facility] Hemoglobin measurementOrdere d By: David Jacobo on 07-27-2024 Hemoglobin (Bld) [Mass/Vol] 13.5 g/dL 13.0-16.5 [facility] Immature granulocytes/100 WB C Auto (Bld)Ordered By: David Jacobo on 07-27-2024 Immature granulocytes/100 WBC (Bld) 0.300 % 0.0-0.9 [facility] Comment on above: IG% - Immature Granu locytes (promyelocytes, myelocytes and metamyelocytes) > 1% indicates that a LEFT SHIFT is Present. LDL calc ser/plasOrdered By: David Jacobo on 07-27-2024 Cholesterol in LDL [Mass/Vol] 23 mg/dL [facility] Comment on above: Jbnbmiaqkr=087-904 m g/dL & Higher Rqum=527 mg/dL or greater Laboratory - Chemistry and C hemistry - challengeOrdered By: David Jacobo on 07-27-2024 AST [Catalytic activity/Vol] 25 U/L <38 [facility] Lipid Profileon 07-27-2024 CHOL:HDL 3.08 Normal [facility] Comment on above: Order Comment: Order Date: 07/27/24 Order Info: [id number] - CMP Order Info: [id number] - LIPID Performed By: #### L 100.0100, L500.4100, L500.4050 #### [facility] [address] [place], [address] Cholesterol [Mass/Vol] 104 mg/dL Normal <=200 [facility] Comment on above: Order Comment: Order Date: 07/27/24 Order Info: [id number] - CMP Order Info: [id number] - LIPID Result Comment: Chol esterol level, Desirable <200 mg/dL Borderline high cholesterol 200-239 mg/dL High cholesterol >=240 mg/dL Recommendations of the NCEP Adult Treatment Panel for the following risk-cutoff thresholds for the [place] population. Performed By: #### L 100.0100, L500.4100, L500.4050 #### [facility] [facility] [address] [place], [address] Cholesterol in HDL [Mass/Vol] 34 mg/dL Low [facility] Comment on above: Order Comment: Order Date: 07/27/24 Order Info: [id number] - CMP Order Info: [id number] - LIPID Result Comment: Samreen onal Cholesterol Education Program (NCEP) guidelines: <40 mg/dL: Low HDL-cholesterol (major risk factor for CHD) >= 60 mg/dL: High HDL-cholesterol (negative risk factor for CHD) HDL-cholesterol is affected by a number of factors, e.g. smoking, exercise, hormones, sex and age. Performed By: #### L 100.0100, L500.4100, L500.4050 #### [facility] [address] [place], [address] Cholesterol in LDL [Mass/Vol] 23 mg/dL Normal [facility] Comment on above: Order Comment: Order Date: 07/27/24 Order Info: [id number] - CMP Order Info: [id number] - LIPID Result Comment: Bord fbfxhb=281-821 mg/dL Higher Wtey=683 mg/dL or greater Performed By: #### L 100.0100, L500.4100, L500.4050 #### [facility] [address] [place], [address] Cholesterol in VLDL [Mass/Vol] 47 mg/dL High 5-40 [facility] Comment on above: Order Comment: Order Date: 07/27/24 Order Info: [id number] - CMP Order Info: [id number] - LIPID Performed By: #### L 100.0100, L500.4100, L500.4050 #### [facility] [address] [place], [address] Triglyceride [Mass/Vol] 236 mg/dL High [facility] Comment on above: Order Comment: Order Date: 07/27/24 Order Info: [id number] - CMP Order Info: [id number] - LIPID Result Comment: The drugs N-Acetylcysteine and Metamizole may falsely depress this assay. Normal range: <150 mg/dL Borderline High: 150-199 mg/dL High: 200-499 mg/dL Very High: >500 mg/dL Performed By: #### L 100.0100, L500.4100, L500.4050 #### [facility] [address] [place], [address] MCV (mean corpuscular volume ) determinationOrdered By: David Jacobo on 07-27-2024 MCV (RBC) [Entitic vol] 96.7 fL High 80-94 [facility] Mean corpuscular hemoglobin (MCH) determinationOrdered By: David Jacobo on 07-27-2024 MCH (RBC) [Entitic mass] 32.3 pg High 27.0-32.0 [facility] Mean corpuscular hemoglobin concentration (MCHC) determinationOrdered By: David Jacobo on 07-27-2024 MCHC (RBC) [Mass/Vol] 33.4 g/dL 32-[address] [facility] Mean platelet volume determi nationOrdered By: David Jacobo on 07-27-2024 Platelet mean volume (Bld) [Entitic vol] 10.0 fL 6.2-12.0 [facility] Monocyte percentageOrdered B y: David Jacobo on 07-27-2024 Monocytes/100 WBC (Bld) 11.3 % High 0-10 [facility] Neutrophil percentageOrdered By: David Jacobo on 07-27-2024 Neutrophils/100 WBC (Bld) 56.7 % 47-70 [facility] Nucleated red blood cell per centageOrdered By: David Jacobo on 07-27-2024 Nucleated RBC/100 WBC (Bld) [Ratio] 0 % 0-5 [facility] PSA,Total- Diagnosticon 07-10 PSA, DIAGNOSTIC 0.68 ng/mL Normal 0.00-4.00 [facility] Comment on above: Order Comment: Order Date: 07/27/24 Order Info: [id number] - CMP Order Info: [id number] - LIPID Result Comment: This test was [...] confirm baseline values. Performed By: #### L 501.9940 #### [facility] [address] [place], [address] Platelet countOrdered By: Italo Jacobo on 07-27-2024 Platelets (Bld) [#/Vol] 261 10*3/uL 150-450 [facility] Potassium measurement (mass/ volume)Ordered By: David Jacobo on 07-27-2024 Potassium (Unsp spec) [Mass/Vol] 4.7 mmol/L 3.3-5.1 [facility] RBC Auto (Bld) [#/Vol]Ordere d By: David Jacobo on 07-27-2024 RBC (Bld) [#/Vol] 4.18 10*6/uL Low 4.6-6.2 [facility] Screening total cholesterol/ high density lipoprotein (HDL) cholesterol ratioOrdered By: David Jacobo on 07-27-2024 Cholesterol.total/Cho lesterol in HDL [Mass ratio] 3.08 {ratio} [facility] Serum creatinine measurement (mass/volume)Ordered By: David Jacobo on 07-27-2024 Creatinine [Mass/Vol] 1.01 mg/dL 0.70-1.[address] [facility] Serum globulin measurementOr dered By: David Jacobo on 07-27-2024 Globulin (S) [Mass/Vol] 2.6 g/dL 2.2-4.2 [facility] Serum glucose measurement (m ass/volume)Ordered By: David Jacobo on 07-27-2024 Glucose [Mass/Vol] 88 mg/dL 70-99 [facility] Serum or plasma alanine beck otransferase (ALT) measurementOrdered By: David Jacobo on 07-27-2024 ALT [Catalytic activity/Vol] 22 U/L <47 [facility] Serum or plasma albumin meron urement (mass/volume)Ordered By: David Jacobo on 07-27-2024 Albumin [Mass/Vol] 4.5 g/dL 3.4-4.8 [facility] Serum or plasma albumin/glob ulin mass ratioOrdered By: David Jacobo on 07-27-2024 Albumin/Globulin [Mass ratio] 1.8 {ratio} 0.9-2.4 [facility] Serum or plasma alkaline holden sphatase measurementOrdered By: David Jacobo on 07-27-2024 ALP [Catalytic activity/Vol] 72 U/L 40-129 [facility] Serum or plasma calcium meron urement (mass/volume)Ordered By: Dvaid Jacobo on 07-27-2024 Calcium [Mass/Vol] 9.0 mg/dL 7.6-11.0 [facility] Serum or plasma cholesterol in HDL measurement (mass/volume)Ordered By: David Jacobo on 07-27-2024 Cholesterol in HDL [Mass/Vol] 34 mg/dL Low >40 [facility] Comment on above: National Cholesterol Education Program (NCEP) guidelines:<40 mg/dL: Low HDL-cholesterol (major risk factor for CHD)>= 60 mg/dL: High HDL-cholesterol (negative risk factor for CHD)HDL-cholesterol is affected by a number of factors, e.g. smoking, exercise, hormones, sex and age. Serum or plasma cholesterol measurement (mass/volume)Ordered By: David Jacobo on 07-27-2024 Cholesterol [Mass/Vol] 104 mg/dL <201 [facility] Comment on above: Cholesterol level, D esirable <200 mg/dLBorderline high cholesterol 200-239 mg/dLHigh cholesterol >=240 mg/dLRecommendations of the NCEP Adult Treatment Panel for the following risk-cutoff thresholds for the [place] population. Serum or plasma urea nitroge n measurement (mass/volume)Ordered By: David Jacobo on 07-27-2024 Urea nitrogen [Mass/Vol] 18 mg/dL 4-19 [facility] Sodium levelOrdered By: David Jacobo on 07-27-2024 Sodium [Moles/Vol] 136 mmol/L 133-145 [facility] Total proteinOrdered By: Tammy Jacobo on 07-27-2024 Protein [Mass/Vol] 7.1 g/dL 5.9-8.4 [facility] Triglycerides measurementOrd ered By: David Jacobo on 07-27-2024 Triglyceride [Mass/Vol] 236 mg/dL High <199 [facility] Comment on above: The drugs N-Acetylcy steine and Metamizole may falsely depress this assay. Normal range: <150 mg/dLBorderline High: 150-199 mg/dLHigh: 200-499 mg/dLVery High: >500 mg/dL White blood cell (WBC) count Ordered By: David Jacobo on 07-27-2024 WBC (Bld) [#/Vol] 6.9 10*3/uL 4.4-11.0 [facility] CPK Total, Creatine Kinaseon 05-19-2024 CPK TOTAL 197 U/L Normal 39-308 [facility] Comment on above: Result Comment: Mode rate Hemolysis, Result may be falsely increased. Performed By: #### L 501.3620, L500.4100, L500.4050 #### [facility] [address] [place], [address] Comprehensive Metabolic Prof ilon 05-19-2024 Albumin [Mass/Vol] 3.7 g/dL Normal 3.2-5.0 [facility] Comment on above: Performed By: #### L 501.3620, L500.4100, L500.4050 #### [facility] [address] [place], [address] Albumin/Globulin [Mass ratio] 1.1 {ratio} Normal 0.9-2.4 [facility] Comment on above: Performed By: #### L 501.3620, L500.4100, L500.4050 #### [facility] [address] [place], [address] ALK P 69 U/L Normal 45-117 [facility] Comment on above: Performed By: #### L 501.3620, L500.4100, L500.4050 #### [facility] [address] [place], [address] ALT [Catalytic activity/Vol] 25 U/L Normal 16-61 [facility] Comment on above: Performed By: #### L 501.3620, L500.4100, L500.4050 #### [facility] [address] [place], [address] AST [Catalytic activity/Vol] 24 U/L Normal 15-37 [facility] Comment on above: Result Comment: Mode rate Hemolysis, Result may be falsely increased. Performed By: #### L 501.3620, L500.4100, L500.4050 #### [facility] [address] [place], [address] Bilirubin [Mass/Vol] 0.40 mg/dL Normal 0.20-1.00 [facility] Comment on above: Result Comment: For patients on eltrombopag therapy, use of Dimension [place] TBIL is not recommended. Performed By: #### L 501.3620, L500.4100, L500.4050 #### [facility] [address] [place], [address] BUN/CRE 20.6 RATIO High 10-20 [facility] Comment on above: Performed By: #### L 501.3620, L500.4100, L500.4050 #### [facility] [address] [place], [address] CA,Total 8.6 mg/dL Normal 8.5-10.1 [facility] Comment on above: Performed By: #### L 501.3620, L500.4100, L500.4050 #### [facility] [address] [place], [address] Chloride [Moles/Vol] 110 mmol/L High 98-107 [facility] Comment on above: Performed By: #### L 501.3620, L500.4100, L500.4050 #### [facility] [address] [place], [address] CO2 [Moles/Vol] 25.0 mmol/L Normal 21.0-32.0 [facility] Comment on above: Performed By: #### L 501.3620, L500.4100, L500.4050 #### [facility] [address] [place], [address] Creatinine [Mass/Vol] 1.07 mg/dL Normal 0.70-1.[address] [facility] Comment on above: Result Comment: The validity of the calculated GFR GFRAA in patients over 70 years has not been determined. Clinical correlation is essential. Performed By: #### L 501.3620, L500.4100, L500.4050 #### [facility] [address] [place], [address] EST GFR - AA 90 mL/min Normal >60 [facility] Comment on above: Result Comment: Afri can [place] GFR Calc Performed By: #### L 501.3620, L500.4100, L500.4050 #### [facility] [address] [place], [address] GAP 5 Normal 5-15 [facility] Comment on above: Performed By: #### L 501.3620, L500.4100, L500.4050 #### [facility] [address] [place], [address] GFR/1.73 sq M.predicted among non-blacks MDRD (S/P/Bld) [Vol rate/Area] 74 mL/min/{1.73_m2} Normal >60 [facility] Comment on above: Result Comment: Non- GFR Calc Performed By: #### L 501.3620, L500.4100, L500.4050 #### [facility] [address] [place], [address] Globulin (S) [Mass/Vol] 3.4 g/dL Normal 2.2-4.2 [facility] Comment on above: Performed By: #### L 501.3620, L500.4100, L500.4050 #### [facility] [address] [place], [address] Glucose [Mass/Vol] 98 mg/dL Normal 74-106 [facility] Comment on above: Performed By: #### L 501.3620, L500.4100, L500.4050 #### [facility] [address] [place], [address] Potassium [Moles/Vol] 5.0 mmol/L Normal 3.5-5.[address] [facility] Comment on above: Result Comment: Mode rate Hemolysis, Result may be falsely increased. Performed By: #### L 501.3620, L500.4100, L500.4050 #### [facility] [address] [place], [address] Sodium [Moles/Vol] 140 mmol/L Normal 136-145 [facility] Comment on above: Performed By: #### L 501.3620, L500.4100, L500.4050 #### [facility] [address] [place], [address] T PROT 7.1 g/dL Normal 6.4-8.2 [facility] Comment on above: Performed By: #### L 501.3620, L500.4100, L500.4050 #### [facility] [address] [place], [address] Urea nitrogen [Mass/Vol] 22 mg/dL High 7-18 [facility] Comment on above: Performed By: #### L 501.3620, L500.4100, L500.4050 #### [facility] [address] [place], [address] Lipid Profileon 05-19-2024 Cholesterol [Mass/Vol] 189 mg/dL Normal 200 [facility] Comment on above: Result Comment: <200 mg/dL Desirable 200-240 mg/dL Borderline >240 mg/dL High Risk Performed By: #### L 501.3620, L500.4100, L500.4050 #### [facility] [address] [place], [address] Cholesterol in HDL [Mass/Vol] 35 mg/dL Low [facility] Comment on above: Result Comment: The drugs N-Acetylcysteine and Metamizole may falsely depress this assay. Reference Range HDL <40 mg/dL Low HDL Cholesterol HDL >or= 60 mg/dL High HDL Cholesterol Performed By: #### L 501.3620, L500.4100, L500.4050 #### [facility] [address] [place], [address] Cholesterol in LDL [Mass/Vol] 108 mg/dL Normal 0-130 [facility] Comment on above: Performed By: #### L 501.3620, L500.4100, L500.4050 #### [facility] [address] [place], [address] Cholesterol in VLDL [Mass/Vol] 46 mg/dL High 5-40 [facility] Comment on above: Performed By: #### L 501.3620, L500.4100, L500.4050 #### [facility] [address] [place], [address] Triglyceride [Mass/Vol] 230 mg/dL High [facility] Comment on above: Result Comment: The drugs N-Acetylcysteine and Metamizole may falsely depress this assay. Serum Triglycerides Reference Interval Normal <150 mg/dL Borderline high 150 - 199 mg/dL High 200 - 499 mg/dL Very High > or = 500 mg/dL Performed By: #### L 501.3620, L500.4100, L500.4050 #### [facility] [address] [place], [address] Cardiology Visit Reporton Cardiology Visit Report [facility] [address] [place] [address] OFFICE VISIT Date of Service: 05/09/24 MR#: [id number] Acct: [id number] Name: FUAD KERR Rep #: [id number] : 1960 Provider: Dr. 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 Normal [facility] PSA,Total - Annual Screenon 03-30-2024 PSA,TOT SCREEN 0.50 ng/mL Normal 0.00-4.00 [facility] Comment on above: Order Comment: Order Date: 03/30/24 Order Info: [id number] - PSA Result Comment: This test was performed using the TPSA assay method for the [employer] chemistry system. Values obtained with different assay methods cannot be used interchangably. When changing PSA assays in the course of monitoring a patient, additional sequential testing should be carried out to confirm baseline values. Performed By: #### L 501.9910 #### [facility] [address] [place], [address] [facility] FUAD KERR ([id number]) 1960 M Date Time Provider Department 12/13/23 POPEYE SAHA [facility] During your visit today, we recorded the following information about you: Popeye Saha APRN.POST OFFICE MARKUP CLERK 12/13/2023 10:08 AM Signed You tested positive [...] days, such as taking additional steps for machinery cleaner air, hygiene, masks, physical distancing, and/or [...] Status:Closed by Prema AUGUSTE on 12/13/23 Normal [facility] CNOVon 12-12-2023 CNOV Office Visit ([facility] ) FUAD KERR ([id number]) 1960 M Date Time Provider Department 12/12/23 9:45 AM ILANA SANABRIA During your visit today, we recorded the following information about you: Temperature Pulse Respiration Blood pressure 99 degrees 75/minute 20/minute 120/68 Weight 87.5 kg Ilana Sanabria APRN.POST OFFICE MARKUP CLERK 12/12/2023 9:59 AM Signed Subjective HPI Fuad presents with three day hx of of sore throat, cough and fever. He states he feels better today and no fever. He and his just returned from [place]. He is eating and drinking well. Denies [...] if symptoms persist or worsen Ilana Sanabria APRN.POST OFFICE MARKUP CLERK Allergies As of Date: 12/12/2023 (No Known [...] AND RSV PCR, ROUTINE [SQCVFLRS] Order #: [id number] FUTURE COVID AND INFLUENZA A/B AND RSV PCR, ROUTINE [SQCVFLRS] Order #: [id number]. #:[id number] Prescriptions as of 12/12/2023 - telmisartan (MICARDIS) [...] use. - (more content not included)... Normal [facility] COVID AND INFLUENZA A/B AND RSV PCR, ROUTINEon 12-12-2023 SARS-CoV-2 (COVID-19) RNA PASQUALE+probe Ql (Unsp spec) SARS-COV-2 (AGENT OF COVID-19) RNA: Detected INFLUENZA A RNA: Not detected INFLUENZA B RNA: Not detected RESPIRATORY SYNCYTIAL VIRUS (RSV) RNA: Not detected Abnormal [facility] Comment on above: Performed By: #### C VFLRS #### [facility] CLIA [id number] [address] [place] [address] [place] Basophil percentageOrdered B y: Dorene Rodriguez on 08-19-2023 Chloride [Moles/Vol] 107 mmol/L 98-107 [facility] Glucose [Mass/Vol] 106 mg/dL 74-106 [facility] Comment on above: Fasting Glucose resu lt from 100 to 125 mg/dL suggests IMPAIRED HOMEOSTASIS per A.D.A. criteria. Hemoglobin (Bld) [Mass/Vol] 13.0 g/dL 13.0-16.5 [facility] Potassium [Moles/Vol] 4.2 mmol/L 3.5-5.[address] [facility] Sodium [Moles/Vol] 138 mmol/L 136-145 [facility] WBC (Bld) [#/Vol] 10.2 10*3/uL 4.4-11.0 [facility] Determination of erythrocyte mean corpuscular volume (MCV)Ordered By: Dorene Rodriguez on 08-19-2023 MCV (RBC) [Entitic vol] 98.0 fL 80-94 [facility] Erythrocyte distribution wid th ratioOrdered By: Dorene Rodriguez on 08-19-2023 Erythrocyte distribution width (RBC) [Ratio] 11.9 % 11.6-14.6 [facility] Erythrocyte distribution wid th standard deviationOrdered By: Dorene Rodriguez on 08-19-2023 Erythrocyte distribution width (RBC) [Entitic vol] 43.0 fL 35.1-43.9 [facility] Hematocrit Auto (Bld) [Volum e fraction]Ordered By: oDrene Rodriguez on 08-19-2023 Hematocrit (Bld) [Volume fraction] 40.2 % 40-54 [facility] - Chemistry and C hemistry - challengeOrdered By: Dorene Rodriguez on 08-19-2023 CO2 [Moles/Vol] 27.0 mmol/L 21.0-32.0 [facility] Urea nitrogen/Creatinine [Mass ratio] 16.0 mg/mg 10-20 [facility] - Hematology and Cell countsOrdered By: Dorene Rodriguez on 08-19-2023 MCH (RBC) [Entitic mass] 31.7 pg 27.0-32.0 [facility] MCHC (RBC) [Mass/Vol] 32.3 g/dL 32-[address] [facility] Platelet mean volume (Bld) [Entitic vol] 9.1 fL 6.2-12.0 [facility] Platelets (Bld) [#/Vol] 324 10*3/uL 150-450 [facility] No Panel InformationOrdered By: Dorene Rodriguez on 08-19-2023 Estimated Creatinine Clearance Calc 84.74 ml/min [facility] Estimated GFR (MDRD) Amer 97 mL/min >60 [facility] Comment on above: GFR Calc Estimated GFR (MDRD) Non-Af Amer 80 mL/min >60 [facility] Comment on above: Non- GFR Calc RBC Auto (Bld) [#/Vol]Ordere d By: Dorene Rodriguez on 08-19-2023 RBC (Bld) [#/Vol] 4.10 10*6/uL 4.6-6.2 [facility] Serum or plasma calcium meron urement (mass/volume)Ordered By: Dorene Rodriguez on 08-19-2023 Calcium [Mass/Vol] 8.6 mg/dL 8.5-10.1 [facility] Serum or plasma creatinine m easurement (mass/volume)Ordered By: Dorene Rodriguez on 08-19-2023 Creatinine [Mass/Vol] 1.00 mg/dL 0.70-1.[address] [facility] Comment on above: The validity of the calculated GFR & GFRAA in patients over 70 years has not been determined. Clinical correlation is essential. Serum or plasma urea nitroge n measurement (mass/volume)Ordered By: Dorene Rodriguez on 08-19-2023 Urea nitrogen [Mass/Vol] 16 mg/dL 7-18 [facility] Thin prep Papanicolaou smear with manual screeningOrdered By: Dorene Rodriguez on 08-19-2023 Thin prep Papanicolaou smear with manual screening 4 5-15 [facility] Basophil percentageOrdered B y: Sav Abrams on 08-18-2023 Bilirubin [Mass/Vol] 0.50 mg/dL 0.20-1.00 [facility] Comment on above: For patients on eltr ombopag therapy, use of Dimension [place] TBIL is not recommended. Cholesterol [Mass/Vol] 82 mg/dL <200 [facility] Comment on above: <200 mg/dL Desirable 200-240 mg/dL Borderline >240 mg/dL High Risk Protein [Mass/Vol] 6.0 g/dL 6.4-8.2 [facility] Triglyceride [Mass/Vol] 227 mg/dL <199 [facility] Comment on above: The drugs N-Acetylcy steine and Metamizole may falsely depress this assay.Serum Triglycerides Reference Interval Normal <150 mg/dL Borderline high 150 - 199 mg/dL High 200 - 499 mg/dL Very High > or = 500 mg/dL Laboratory - Chemistry and C hemistry - challengeOrdered By: Sav Abrams on 08-18-2023 Albumin/Globulin [Mass ratio] 1.1 {ratio} 0.9-2.4 [facility] ALP [Catalytic activity/Vol] 55 U/L 45-117 [facility] ALT [Catalytic activity/Vol] 42 U/L 16-61 [facility] Cholesterol in HDL [Mass/Vol] 27 mg/dL >40 [facility] Comment on above: The drugs N-Acetylcy steine and Metamizole may falsely depress this assay. Reference Range HDL <40 mg/dL Low HDL Cholesterol HDL >or= 60 mg/dL High HDL Cholesterol Cholesterol in LDL [Mass/Vol] 10 mg/dL 0-130 [facility] Globulin (S) [Mass/Vol] 2.9 g/dL 2.2-4.2 [facility] No Panel InformationOrdered By: Sav Abrams on 08-18-2023 VLDL Cholesterol 45 mg/dL 5-40 [facility] Thin prep Papanicolaou smear with manual screeningOrdered By: Sav Abrams on 08-18-2023 Thin prep Papanicolaou smear with manual screening 3.1 g/dL 3.2-5.0 [facility] Thin prep Papanicolaou smear with manual screening 132 U/L 15-37 [facility] Whole blood hemoglobin A1c/t otal hemoglobin ratio (mass fraction)Ordered By: Dorene Rodriguez on 08-18-2023 HbA1c (Bld) [Mass fraction] 5.7 % 3.8-5.6 [facility] Comment on above: Normal < 5.7 % Predi abetic 5.7 - 6.4 % Diabetic >or= 6.5 % Please note range changes. Absolute lymphocyte countOrd ered By: David Myers on 08-17-2023 Lymphocytes Auto (Unsp spec) [#/Vol] 2.66 10*3/uL 0.83-4.51 [facility] Activated partial thrombopla stin time (aPTT) in platelet poor plasma by coagulation aOrdered By: David Myers on 08-17-2023 aPTT Coag (PPP) [Time] 23.6 s 24.1-36.2 [facility] Automated lymphocyte count a s percentage of total leukocytesOrdered By: David Myers on 08-17-2023 Lymphocytes/100 WBC Auto (Unsp spec) 21.9 % 19-41 [facility] Basophil percentageOrdered B y: David Myers on 08-17-2023 Basophils/100 WBC (Bld) 0.7 % 0-1 [facility] Chloride [Moles/Vol] 105 mmol/L 98-107 [facility] Eosinophils/100 WBC (Bld) 0.6 % 0-5 [facility] Glucose [Mass/Vol] 140 mg/dL 74-106 [facility] Comment on above: Fasting Glucose resu lt greater than or equal to 126 mg/dL suggests DIABETES MELLITUS per A.D.A. criteria. Hemoglobin (Bld) [Mass/Vol] 13.6 g/dL 13.0-16.5 [facility] Monocytes/100 WBC (Bld) 8.7 % 0-10 [facility] Neutrophils (Bld) [#/Vol] 8.0 10*3/uL 2.0-7.7 [facility] Neutrophils/100 WBC (Bld) 66.3 % 47-70 [facility] Potassium [Moles/Vol] 4.4 mmol/L 3.5-5.[address] [facility] Sodium [Moles/Vol] 137 mmol/L 136-145 [facility] WBC (Bld) [#/Vol] 12.1 10*3/uL 4.4-11.0 [facility] Determination of erythrocyte mean corpuscular volume (MCV)Ordered By: David Myers on 08-17-2023 MCV (RBC) [Entitic vol] 95.2 fL 80-94 [facility] Erythrocyte distribution wid th ratioOrdered By: David Myers on 08-17-2023 Erythrocyte distribution width (RBC) [Ratio] 11.7 % 11.6-14.6 [facility] Erythrocyte distribution wid th standard deviationOrdered By: David Myers on 08-17-2023 Erythrocyte distribution width (RBC) [Entitic vol] 40.7 fL 35.1-43.9 [facility] Hematocrit Auto (Bld) [Volum e fraction]Ordered By: David Myers on 08-17-2023 Hematocrit (Bld) [Volume fraction] 41.4 % 40-54 [facility] Immature granulocytes/100 WB C Auto (Bld)Ordered By: David Myers on 08-17-2023 Immature granulocytes/100 WBC (Bld) 1.800 % 0.0-0.9 [facility] Comment on above: IG% - Immature Granu locytes (promyelocytes, myelocytes and metamyelocytes) > 1% indicates that a LEFT SHIFT is Present. Laboratory - Chemistry and C hemistry - challengeOrdered By: David Myers on 08-17-2023 CO2 [Moles/Vol] 22.0 mmol/L 21.0-32.0 [facility] Urea nitrogen/Creatinine [Mass ratio] 16.6 mg/mg 10-20 [facility] Laboratory - CoagulationOrde red By: David Myers on 08-17-2023 INR Coag (Bld) [Relative time] 1.1 {INR} [facility] PT Coag (PPP) [Time] 13.9 s 11.7-14.9 [facility] Laboratory - Hematology and Cell countsOrdered By: David Myers on 08-17-2023 MCH (RBC) [Entitic mass] 31.3 pg 27.0-32.0 [facility] MCHC (RBC) [Mass/Vol] 32.9 g/dL 32-[address] [facility] Nucleated RBC/100 WBC (Bld) [Ratio] 0 % 0-5 [facility] Platelet mean volume (Bld) [Entitic vol] 9.1 fL 6.2-12.0 [facility] Platelets (Bld) [#/Vol] 415 10*3/uL 150-450 [facility] No Panel InformationOrdered By: Dorene Rodriguez on 08-17-2023 Activated Clotting Time 250 sec 74-137 [facility] No Panel InformationOrdered By: David Myers on 08-17-2023 Estimated Creatinine Clearance Calc 46.80 ml/min [facility] Estimated GFR (MDRD) Amer 49 mL/min >60 [facility] Comment on above: GFR Calc Estimated GFR (MDRD) Non-Af Amer 40 mL/min >60 [facility] Comment on above: Non- GFR Calc Troponin I High Sensitivity 100 pg/mL 3.0-78.0 [facility] Comment on above: Please Note: New Helen t Units and Gender Specific Reference Ranges. For more information see Policy Stat Procedure [place] High Sensitivity Troponin (TNIH) and attachments. RBC Auto (Bld) [#/Vol]Ordere d By: David Myers on 08-17-2023 RBC (Bld) [#/Vol] 4.35 10*6/uL 4.6-6.2 [facility] Serum or plasma calcium meron urement (mass/volume)Ordered By: David Myers on 08-17-2023 Calcium [Mass/Vol] 9.3 mg/dL 8.5-10.1 [facility] Serum or plasma creatinine m easurement (mass/volume)Ordered By: David Myers on 08-17-2023 Creatinine [Mass/Vol] 1.81 mg/dL 0.70-1.[address] [facility] Comment on above: The validity of the calculated GFR & GFRAA in patients over 70 years has not been determined. Clinical correlation is essential. Serum or plasma urea nitroge n measurement (mass/volume)Ordered By: David Myers on 08-17-2023 Urea nitrogen [Mass/Vol] 30 mg/dL 7-18 [facility] Thin prep Papanicolaou smear with manual screeningOrdered By: David Myers on 08-17-2023 Thin prep Papanicolaou smear with manual screening 10 5-15 [facility] Absolute lymphocyte countOrd ered By: Eleno Quijano on 08-15-2023 Lymphocytes Auto (Unsp spec) [#/Vol] 0.99 10*3/uL 0.83-4.51 [facility] Automated lymphocyte count a s percentage of total leukocytesOrdered By: Eleno Quijano on 08-15-2023 Lymphocytes/100 WBC Auto (Unsp spec) 8.0 % 19-41 [facility] Basophil percentageOrdered B y: Eleno Quijano on 08-15-2023 Basophil percentage 2.6 mg/dL 2.5-4.9 [facility] Basophils/100 WBC (Bld) 0.1 % 0-1 [facility] Chloride [Moles/Vol] 107 mmol/L 98-107 [facility] Eosinophils/100 WBC (Bld) 0.0 % 0-5 [facility] Glucose [Mass/Vol] 207 mg/dL 74-106 [facility] Comment on above: Glucose result great er than or equal to 200 mg/dLsuggests DIABETES MELLITUS per A.D.A. criteria. Hemoglobin (Bld) [Mass/Vol] 13.6 g/dL 13.0-16.5 [facility] Monocytes/100 WBC (Bld) 2.9 % 0-10 [facility] Neutrophils (Bld) [#/Vol] 11.0 10*3/uL 2.0-7.7 [facility] Neutrophils/100 WBC (Bld) 88.4 % 47-70 [facility] Potassium [Moles/Vol] 4.2 mmol/L 3.5-5.[address] [facility] Sodium [Moles/Vol] 137 mmol/L 136-145 [facility] WBC (Bld) [#/Vol] 12.4 10*3/uL 4.4-11.0 [facility] Determination of erythrocyte mean corpuscular volume (MCV)Ordered By: Eleno Quijano on 08-15-2023 MCV (RBC) [Entitic vol] 96.2 fL 80-94 [facility] Erythrocyte distribution wid th ratioOrdered By: Eleno Quijano on 08-15-2023 Erythrocyte distribution width (RBC) [Ratio] 11.8 % 11.6-14.6 [facility] Erythrocyte distribution wid th standard deviationOrdered By: Eleno Quijano on 08-15-2023 Erythrocyte distribution width (RBC) [Entitic vol] 41.2 fL 35.1-43.9 [facility] Hematocrit Auto (Bld) [Volum e fraction]Ordered By: Eleno Quijano on 08-15-2023 Hematocrit (Bld) [Volume fraction] 40.7 % 40-54 [facility] Immature granulocytes/100 WB C Auto (Bld)Ordered By: Eleno Quijano on 08-15-2023 Immature granulocytes/100 WBC (Bld) 0.600 % 0.0-0.9 [facility] Comment on above: IG% - Immature Granu locytes (promyelocytes, myelocytes and metamyelocytes) > 1% indicates that a LEFT SHIFT is Present. Laboratory - Chemistry and C hemistry - challengeOrdered By: Eleno Quijano on 08-15-2023 CO2 [Moles/Vol] 24.0 mmol/L 21.0-32.0 [facility] Magnesium [Mass/Vol] 2.3 mg/dL 1.6-2.6 [facility] Urea nitrogen/Creatinine [Mass ratio] 17.6 mg/mg 10-20 [facility] Laboratory - Hematology and Cell countsOrdered By: Eleno Quijano on 08-15-2023 MCH (RBC) [Entitic mass] 32.2 pg 27.0-32.0 [facility] MCHC (RBC) [Mass/Vol] 33.4 g/dL 32-[address] [facility] Nucleated RBC/100 WBC (Bld) [Ratio] 0 % 0-5 [facility] Platelet mean volume (Bld) [Entitic vol] 9.6 fL 6.2-12.0 [facility] Platelets (Bld) [#/Vol] 309 10*3/uL 150-450 [facility] No Panel InformationOrdered By: Eleno Quijano on 08-15-2023 Estimated Creatinine Clearance Calc 99.42 ml/min [facility] Estimated GFR (MDRD) Amer 116 mL/min >60 [facility] Comment on above: GFR Calc Estimated GFR (MDRD) Non-Af Amer 96 mL/min >60 [facility] Comment on above: Non- GFR Calc RBC Auto (Bld) [#/Vol]Ordere d By: Eleno Quijano on 08-15-2023 RBC (Bld) [#/Vol] 4.23 10*6/uL 4.6-6.2 [facility] Serum or plasma calcium meron urement (mass/volume)Ordered By: Eleno Quijano on 08-15-2023 Calcium [Mass/Vol] 8.9 mg/dL 8.5-10.1 [facility] Serum or plasma creatinine m easurement (mass/volume)Ordered By: Eleno Quijano on 08-15-2023 Creatinine [Mass/Vol] 0.85 mg/dL 0.70-1.[address] [facility] Comment on above: The validity of the calculated GFR & GFRAA in patients over 70 years has not been determined. Clinical correlation is essential. Serum or plasma urea nitroge n measurement (mass/volume)Ordered By: Eleno Quijano on 08-15-2023 Urea nitrogen [Mass/Vol] 15 mg/dL 7-18 [facility] Thin prep Papanicolaou smear with manual screeningOrdered By: Eleno Quijano on 08-15-2023 Thin prep Papanicolaou smear with manual screening 6 5-15 [facility] Absolute lymphocyte countOrd ered By: Nydia Rivers on 08-14-2023 Lymphocytes Auto (Unsp spec) [#/Vol] 0.90 10*3/uL 0.83-4.51 [facility] Automated lymphocyte count a s percentage of total leukocytesOrdered By: Nydia Rivers on 08-14-2023 Lymphocytes/100 WBC Auto (Unsp spec) 5.8 % 19-41 [facility] Bacteria identified Cx Nom ( Wound)Ordered By: Cisco Lincoln on 08-14-2023 Wound Culture Actinomyces naeslundii [facility] Basophil percentageOrdered B y: Nydia Rivers on 08-14-2023 Basophils/100 WBC (Bld) 0.1 % 0-1 [facility] Chloride [Moles/Vol] 105 mmol/L 98-107 [facility] Eosinophils/100 WBC (Bld) 0.0 % 0-5 [facility] Glucose [Mass/Vol] 142 mg/dL 74-106 [facility] Comment on above: Fasting Glucose resu lt greater than or equal to 126 mg/dL suggests DIABETES MELLITUS per A.D.A. criteria. Hemoglobin (Bld) [Mass/Vol] 14.0 g/dL 13.0-16.5 [facility] Monocytes/100 WBC (Bld) 4.0 % 0-10 [facility] Neutrophils (Bld) [#/Vol] 13.9 10*3/uL 2.0-7.7 [facility] Neutrophils/100 WBC (Bld) 89.7 % 47-70 [facility] Potassium [Moles/Vol] 4.5 mmol/L 3.5-5.[address] [facility] Sodium [Moles/Vol] 136 mmol/L 136-145 [facility] WBC (Bld) [#/Vol] 15.5 10*3/uL 4.4-11.0 [facility] Determination of erythrocyte mean corpuscular volume (MCV)Ordered By: Nydia Rivers on 08-14-2023 MCV (RBC) [Entitic vol] 95.6 fL 80-94 [facility] Erythrocyte distribution wid th ratioOrdered By: Nydia Rivers on 08-14-2023 Erythrocyte distribution width (RBC) [Ratio] 11.8 % 11.6-14.6 [facility] Erythrocyte distribution wid th standard deviationOrdered By: Nydia Rivers on 08-14-2023 Erythrocyte distribution width (RBC) [Entitic vol] 41.2 fL 35.1-43.9 [facility] Gram stain for investigation of transfusion reactionOrdered By: Cisco Lincoln on 08-14-2023 Microscopic observation Gram stain Nom (Unsp spec) [facility] Hematocrit Auto (Bld) [Volum e fraction]Ordered By: Nydia Rivers on 08-14-2023 Hematocrit (Bld) [Volume fraction] 41.7 % 40-54 [facility] Immature granulocytes/100 WB C Auto (Bld)Ordered By: Nydia Rivers on 08-14-2023 Immature granulocytes/100 WBC (Bld) 0.400 % 0.0-0.9 [facility] Comment on above: IG% - Immature Granu locytes (promyelocytes, myelocytes and metamyelocytes) > 1% indicates that a LEFT SHIFT is Present. Laboratory - Chemistry and C hemistry - challengeOrdered By: Nydia Rivers on 08-14-2023 CO2 [Moles/Vol] 25.0 mmol/L 21.0-32.0 [facility] Urea nitrogen/Creatinine [Mass ratio] 18.7 mg/mg 10-20 [facility] Laboratory - Hematology and Cell countsOrdered By: Nydia Rivers on 08-14-2023 MCH (RBC) [Entitic mass] 32.1 pg 27.0-32.0 [facility] MCHC (RBC) [Mass/Vol] 33.6 g/dL 32-[address] [facility] Nucleated RBC/100 WBC (Bld) [Ratio] 0 % 0-5 [facility] Platelet mean volume (Bld) [Entitic vol] 9.2 fL 6.2-12.0 [facility] Platelets (Bld) [#/Vol] 297 10*3/uL 150-450 [facility] No Panel InformationOrdered By: Nydia Rivers on 08-14-2023 Estimated Creatinine Clearance Calc 88.43 ml/min [facility] Estimated GFR (MDRD) Amer 101 mL/min >60 [facility] Comment on above: GFR Calc Estimated GFR (MDRD) Non-Af Amer 84 mL/min >60 [facility] Comment on above: Non- GFR Calc RBC Auto (Bld) [#/Vol]Ordere d By: Nydia Rivers on 08-14-2023 RBC (Bld) [#/Vol] 4.36 10*6/uL 4.6-6.2 [facility] Serum or plasma calcium meron urement (mass/volume)Ordered By: Nydia Rivers on 08-14-2023 Calcium [Mass/Vol] 9.3 mg/dL 8.5-10.1 [facility] Serum or plasma creatinine m easurement (mass/volume)Ordered By: Nydia Rivers on 08-14-2023 Creatinine [Mass/Vol] 0.96 mg/dL 0.70-1.[address] [facility] Comment on above: The validity of the calculated GFR & GFRAA in patients over 70 years has not been determined. Clinical correlation is essential. Serum or plasma urea nitroge n measurement (mass/volume)Ordered By: Nydia Rivers on 08-14-2023 Urea nitrogen [Mass/Vol] 18 mg/dL 7-18 [facility] Streptococcus pyogenes rRNA detection in throat by DNA probeOrdered By: Nydia Rivers on 08-14-2023 S. pyogenes rRNA Probe Ql (Throat) [facility] Thin prep Papanicolaou smear with manual screeningOrdered By: Nydia Rivers on 08-14-2023 Thin prep Papanicolaou smear with manual screening 6 5-15 [facility] Basophil percentageOrdered B y: Tanner Elkin on 06-25-2023 Bilirubin [Mass/Vol] 0.50 mg/dL 0.20-1.00 [facility] Comment on above: For patients on eltr ombopag therapy, use of Dimension [place] TBIL is not recommended. Cholesterol [Mass/Vol] 114 mg/dL <200 [facility] Comment on above: <200 mg/dL Desirable 200-240 mg/dL Borderline >240 mg/dL High Risk Protein [Mass/Vol] 7.2 g/dL 6.4-8.2 [facility] Triglyceride [Mass/Vol] 180 mg/dL <199 [facility] Comment on above: The drugs N-Acetylcy steine and Metamizole may falsely depress this assay.Serum Triglycerides Reference Interval Normal <150 mg/dL Borderline high 150 - 199 mg/dL High 200 - 499 mg/dL Very High > or = 500 mg/dL Direct bilirubinOrdered By: Tanner Granger on 06-25-2023 Bilirubin.direct [Mass/Vol] 0.12 mg/dL 0.00-0.30 [facility] Laboratory - Chemistry and C hemistry - challengeOrdered By: Tanner Granger on 06-25-2023 ALP [Catalytic activity/Vol] 69 U/L 45-117 [facility] ALT [Catalytic activity/Vol] 33 U/L 16-61 [facility] Cholesterol in HDL [Mass/Vol] 37 mg/dL >40 [facility] Comment on above: The drugs N-Acetylcy steine and Metamizole may falsely depress this assay. Reference Range HDL <40 mg/dL Low HDL Cholesterol HDL >or= 60 mg/dL High HDL Cholesterol Cholesterol in LDL [Mass/Vol] 41 mg/dL 0-130 [facility] Globulin (S) [Mass/Vol] 3.4 g/dL 2.2-4.2 [facility] No Panel InformationOrdered By: Tanner Granger on 06-25-2023 VLDL Cholesterol 36 mg/dL 5-40 [facility] Thin prep Papanicolaou smear with manual screeningOrdered By: Tanner Granger on 06-25-2023 Thin prep Papanicolaou smear with manual screening 3.8 g/dL 3.2-5.0 [facility] Thin prep Papanicolaou smear with manual screening 24 U/L 15-37 [facility] Basophil percentageOrdered B y: Tanner Granger on 08-27-2022 Bilirubin [Mass/Vol] 0.50 mg/dL 0.20-1.00 [facility] Comment on above: For patients on eltr ombopag therapy, use of Dimension [place] TBIL is not recommended. Cholesterol [Mass/Vol] 94 mg/dL <200 [facility] Comment on above: <200 mg/dL Desirable 200-240 mg/dL Borderline >240 mg/dL High Risk Protein [Mass/Vol] 6.7 g/dL 6.4-8.2 [facility] Triglyceride [Mass/Vol] 148 mg/dL <199 [facility] Comment on above: The drugs N-Acetylcy steine and Metamizole may falsely depress this assay.Serum Triglycerides Reference Interval Normal <150 mg/dL Borderline high 150 - 199 mg/dL High 200 - 499 mg/dL Very High > or = 500 mg/dL Direct bilirubinOrdered By: Tanner Granger on 08-27-2022 Bilirubin.direct [Mass/Vol] 0.13 mg/dL 0.00-0.30 [facility] Laboratory - Chemistry and C hemistry - challengeOrdered By: Tanner Granger on 08-27-2022 ALP [Catalytic activity/Vol] 59 U/L 45-117 [facility] ALT [Catalytic activity/Vol] 26 U/L 16-61 [facility] Globulin (S) [Mass/Vol] 3.1 g/dL 2.2-4.2 [facility] Serum or plasma albumin meron urement (mass/volume)Ordered By: Tanner Granger on 08-27-2022 Albumin [Mass/Vol] 3.6 g/dL 3.2-5.0 [facility] Serum or plasma cholesterol in HDL measurement (mass/volume)Ordered By: Tanner Granger on 08-27-2022 Cholesterol in HDL [Mass/Vol] 36 mg/dL >40 [facility] Comment on above: The drugs N-Acetylcy steine and Metamizole may falsely depress this assay. Reference Range HDL <40 mg/dL Low HDL Cholesterol HDL >or= 60 mg/dL High HDL Cholesterol Serum or plasma cholesterol in VLDL measurement (mass/volume)Ordered By: Tanner Granger on 08-27-2022 Cholesterol in VLDL [Mass/Vol] 30 mg/dL 5-40 [facility] Serum or plasma low density lipoprotein (LDL) cholesterol measurement (mass/volume)Ordered By: Tanner Granger on 08-27-2022 Cholesterol in LDL [Mass/Vol] 28 mg/dL 0-130 [facility] Thin prep Papanicolaou smear with manual screeningOrdered By: Tanner Granger on 08-27-2022 Thin prep Papanicolaou smear with manual screening 16 U/L 15-37 [facility] Basophil percentageon 2021 Chloride [Moles/Vol] 109 mmol/L 98-[address] [facility] [place]: Glucose [Mass/Vol] 97 mg/dL 74-106 [facility] Phone: Potassium [Moles/Vol] 5.0 mmol/L 3.5-5.1 [facility] Phone: Sodium [Moles/Vol] 140 mmol/L 136-145 [facility] Work Phone: WBC (Bld) [#/Vol] 8.7 10*3/uL 4.4-11.0 [facility]: Blood erythrocytes count (nu mber/volume)on 12-22-2021 RBC (Bld) [#/Vol] 4.30 10*6/uL 4.6-6.2 [facility] Work Phone: [phone] Blood hemoglobin measurement (mass/volume)on 12-22-2021 Hemoglobin (Bld) [Mass/Vol] 14.2 g/dL 13.0-16.5 [facility] Work Phone: Blood platelet mean volumeon 12-22-2021 Platelet mean volume (Bld) [Entitic vol] 10.0 fL 6.2-12.0 [facility] Work Phone: [phone] Determination of erythrocyte mean corpuscular volume (MCV)on 12-22-2021 MCV (RBC) [Entitic vol] 100.2 fL 80-94 [facility] Work Phone: Hematocrit Auto (Bld) [Volum e fraction]on 12-22-2021 Hematocrit (Bld) [Volume fraction] 43.1 % 40-54 [facility] Work Phone: [phone] INR in Blood by Coagulation assayon 12-22-2021 INR Coag (Bld) [Relative time] 1.0 {INR} [facility] Work Phone: [phone] Laboratory - Chemistry and C hemistry - challengeon 12-22-2021 CO2 [Moles/Vol] 27.0 mmol/L 21.0-32.0 [facility] Work Phone: Urea nitrogen/Creatinine [Mass ratio] 19.3 mg/mg 10-20 [facility] Work Phone: Laboratory - Coagulationon 0 12-22-2021 aPTT Coag (Bld) [Time] 22.8 s 24.1-36.2 [facility] Work Phone: PT Coag (PPP) [Time] 13.3 s 11.7-14.9 [facility] Work Phone: Laboratory - Hematology and Cell countson 12-22-2021 Erythrocyte distribution width (RBC) [Entitic vol] 46.7 fL 35.1-43.9 [facility] Work Phone: Erythrocyte distribution width (RBC) [Ratio] 12.5 % 11.6-14.6 [facility] Work Phone: MCH (RBC) [Entitic mass] 33.0 pg 27.0-32.0 [facility] Work Phone: MCHC Auto (RBC) [Mass/Vol]on 12-22-2021 MCHC (RBC) [Mass/Vol] 32.9 g/dL 32-[address] [facility] Work Phone: No Panel Informationon 12-22 Estimated GFR (MDRD) Amer 80 mL/min >60 [facility] Work Phone: Comment on above: GFR Calc Estimated GFR (MDRD) Non-Af Amer 66 mL/min >60 [facility] Work Phone: Comment on above: Non- GFR Calc Platelets bldon 12-22-2021 Platelets (Bld) [#/Vol] 284 10*3/uL 150-450 [facility] Work Phone: Serum or plasma calcium meron urement (mass/volume)on 12-22-2021 Calcium [Mass/Vol] 9.3 mg/dL 8.5-10.1 [facility] Work Phone: Serum or plasma creatinine m easurement (mass/volume)on 12-22-2021 Creatinine [Mass/Vol] 1.19 mg/dL 0.70-1.[address] [facility] Work Phone: Comment on above: The validity of the calculated GFR & GFRAA in patients over 70 years has not been determined. Clinical correlation is essential. Serum or plasma urea nitroge n measurement (mass/volume)on 12-22-2021 Urea nitrogen [Mass/Vol] 23 mg/dL 7-18 [facility] Work Phone: Thin prep Papanicolaou smear with manual screeningon 12-22-2021 Thin prep Papanicolaou smear with manual screening 4 5-15 [facility] Work Phone: Basophil percentageon 2021 Bilirubin [Mass/Vol] 0.40 mg/dL 0.20-1.00 [facility] Work Phone: Comment on above: For patients on eltr ombopag therapy, use of Dimension [place] TBIL is not recommended. Cholesterol [Mass/Vol] 111 mg/dL <200 [facility] Work Phone: Comment on above: <200 mg/dL Desirable 200-240 mg/dL Borderline >240 mg/dL High Risk Protein [Mass/Vol] 7.2 g/dL 6.4-8.2 [facility] Work Phone: Triglyceride [Mass/Vol] 152 mg/dL <199 [facility] Work Phone: Comment on above: The drugs N-Acetylcy steine and Metamizole may falsely depress this assay.Serum Triglycerides Reference Interval Normal <150 mg/dL Borderline high 150 - 199 mg/dL High 200 - 499 mg/dL Very High > or = 500 mg/dL Direct bilirubinon 2 Bilirubin.direct [Mass/Vol] 0.11 mg/dL 0.00-0.30 [facility] Work Phone: Laboratory - Chemistry and C hemistry - challengeon 10-24-2021 ALP [Catalytic activity/Vol] 59 U/L 45-117 [facility] Work Phone: ALT [Catalytic activity/Vol] 30 U/L 16-61 [facility] Work Phone: Globulin (S) [Mass/Vol] 3.4 g/dL 2.2-4.2 [facility] Work Phone: Serum or plasma albumin meron urement (mass/volume)on 10-24-2021 Albumin [Mass/Vol] 3.8 g/dL 3.2-5.0 [facility] Work Phone: Serum or plasma cholesterol in HDL measurement (mass/volume)on 10-24-2021 Cholesterol in HDL [Mass/Vol] 39 mg/dL >40 [facility] Work Phone: Comment on above: The drugs N-Acetylcy steine and Metamizole may falsely depress this assay. Reference Range HDL <40 mg/dL Low HDL Cholesterol HDL >or= 60 mg/dL High HDL Cholesterol Serum or plasma cholesterol in VLDL measurement (mass/volume)on 10-24-2021 Cholesterol in VLDL [Mass/Vol] 30 mg/dL 5-40 [facility] Work Phone: Serum or plasma low density lipoprotein (LDL) cholesterol measurement (mass/volume)on 10-24-2021 Cholesterol in LDL [Mass/Vol] 42 mg/dL 0-130 [facility] Work Phone: Thin prep Papanicolaou smear with manual screeningon 10-24-2021 Thin prep Papanicolaou smear with manual screening 14 U/L 15-37 [facility] Work Phone: Absolute lymphocyte counton 09-25-2021 Lymphocytes Auto (Unsp spec) [#/Vol] 2.19 10*3/uL 0.83-4.51 [facility] Work Phone: Basophil percentageon 2021 Basophils/100 WBC (Bld) 0.4 % 0-1 [facility] Work Phone: Bilirubin [Mass/Vol] 0.40 mg/dL 0.20-1.00 [facility] Work Phone: Comment on above: For patients on eltr ombopag therapy, use of Dimension [place] TBIL is not recommended. Chloride [Moles/Vol] 114 mmol/L 98-107 [facility] Work Phone: Eosinophils/100 WBC (Bld) 4.2 % 0-5 [facility] Work Phone: Glucose [Mass/Vol] 103 mg/dL 74-106 [facility] Work Phone: Comment on above: Fasting Glucose resu lt from 100 to 125 mg/dL suggests IMPAIRED HOMEOSTASIS per A.D.A. criteria. Neutrophils (Bld) [#/Vol] 3.5 10*3/uL 2.0-7.7 [facility] Work Phone: Neutrophils/100 WBC (Bld) 50.2 % 47-70 [facility] Work Phone: Potassium [Moles/Vol] 4.9 mmol/L 3.5-5.[address] [facility] Work Phone: Protein [Mass/Vol] 7.2 g/dL 6.4-8.2 [facility] Work Phone: Sodium [Moles/Vol] 139 mmol/L 136-145 [facility] Work Phone: WBC (Bld) [#/Vol] 6.9 10*3/uL 4.4-11.0 [facility] Work Phone: Blood erythrocytes count (nu mber/volume)on 09-25-2021 RBC (Bld) [#/Vol] 4.04 10*6/uL 4.6-6.2 [facility] Work Phone: Blood hemoglobin measurement (mass/volume)on 09-25-2021 Hemoglobin (Bld) [Mass/Vol] 13.2 g/dL 13.0-16.5 [facility] Work Phone: Blood lymphocytes/100 leukoc yteson 09-25-2021 Lymphocytes/100 WBC (Bld) 31.7 % 19-41 [facility] Work Phone: Blood monocytes/100 leukocyt eson 09-25-2021 Monocytes/100 WBC (Bld) 13.2 % 0-10 [facility] Work Phone: Blood platelet mean volumeon 09-25-2021 Platelet mean volume (Bld) [Entitic vol] 10.0 fL 6.2-12.0 [facility] Work Phone: [phone] Determination of erythrocyte mean corpuscular volume (MCV)on 09-25-2021 MCV (RBC) [Entitic vol] 98.0 fL 80-94 [facility] Work Phone: Erythrocyte sedimentation ra raquel 09-25-2021 ESR (Bld) [Velocity] 10 mm/h 0-20 [facility] Work Phone: Hematocrit Auto (Bld) [Volum e fraction]on 09-25-2021 Hematocrit (Bld) [Volume fraction] 39.6 % 40-54 [facility] Work Phone: [phone] Laboratory - Chemistry and C hemistry - challengeon 09-25-2021 ALP [Catalytic activity/Vol] 62 U/L 45-117 [facility] Work Phone: ALT [Catalytic activity/Vol] 31 U/L 16-61 [facility] Work Phone: CO2 [Moles/Vol] 21.0 mmol/L 21.0-32.0 [facility] Work Phone: [phone] Globulin (S) [Mass/Vol] 3.3 g/dL 2.2-4.2 [facility] Work Phone: Urea nitrogen/Creatinine [Mass ratio] 21.4 mg/mg 10-20 [facility] Work Phone: Laboratory - Hematology and Cell countson 09-25-2021 Erythrocyte distribution width (RBC) [Entitic vol] 43.6 fL 35.1-43.9 [facility] Work Phone: Erythrocyte distribution width (RBC) [Ratio] 11.9 % 11.6-14.6 [facility] Work Phone: Immature granulocytes/100 WBC (Bld) 0.300 % 0.0-0.9 [facility] Work Phone: Comment on above: IG% - Immature Granu locytes (promyelocytes, myelocytes and metamyelocytes) > 1% indicates that a LEFT SHIFT is Present. MCH (RBC) [Entitic mass] 32.7 pg 27.0-32.0 [facility] Work Phone: Nucleated RBC/100 WBC (Bld) [Ratio] 0 % 0-5 [facility] Work Phone: MCHC Auto (RBC) [Mass/Vol]on 09-25-2021 MCHC (RBC) [Mass/Vol] 33.3 g/dL 32-[address] [facility] Work Phone: No Panel Informationon 09-25 Estimated GFR (MDRD) Amer 64 mL/min >60 [facility] Work Phone: Comment on above: GFR Calc Estimated GFR (MDRD) Non-Af Amer 53 mL/min >60 [facility] Work Phone: Comment on above: Non- GFR Calc Platelets bldon 09-25-2021 Platelets (Bld) [#/Vol] 281 10*3/uL 150-450 [facility] Work Phone: Serum or plasma C reactive p rotein measurement (mass/volume)on 09-25-2021 CRP [Mass/Vol] 4.57 mg/L 0.0-3.0 [facility] Work Phone: Comment on above: C-Reactive Protein ( CRP) provides useful information for thediagnosis, therapy and monitoring of inflammatory processesand associated diseases. For the evaluation of Relative Riskfor Cardiovascular Disease, a High Sensitivity CRP (HSCRP)should be ordered. Serum or plasma albumin meron urement (mass/volume)on 09-25-2021 Albumin [Mass/Vol] 3.9 g/dL 3.2-5.0 [facility] Work Phone: Serum or plasma albumin/glob ulin mass ratioon 09-25-2021 Albumin/Globulin [Mass ratio] 1.2 {ratio} 0.9-2.4 [facility] Work Phone: Serum or plasma calcium meron urement (mass/volume)on 09-25-2021 Calcium [Mass/Vol] 8.8 mg/dL 8.5-10.1 [facility] Work Phone: Serum or plasma creatinine m easurement (mass/volume)on 09-25-2021 Creatinine [Mass/Vol] 1.45 mg/dL 0.70-1.[address] [facility] Work Phone: Comment on above: The validity of the calculated GFR & GFRAA in patients over 70 years has not been determined. Clinical correlation is essential. Serum or plasma urea nitroge n measurement (mass/volume)on 09-25-2021 Urea nitrogen [Mass/Vol] 31 mg/dL 7-18 [facility] Work Phone: Thin prep Papanicolaou smear with manual screeningon 09-25-2021 Thin prep Papanicolaou smear with manual screening 17 U/L 15-37 [facility] Work Phone: Thin prep Papanicolaou smear with manual screening 4 5-15 [facility] Work Phone: Absolute lymphocyte counton 06-01-2021 Lymphocytes Auto (Unsp spec) [#/Vol] 2.83 10*3/uL 0.83-4.51 [facility] Work Phone: Basophil percentageon 2021 Basophils/100 WBC (Bld) 0.4 % 0-1 [facility] Work Phone: Bilirubin [Mass/Vol] 0.20 mg/dL 0.20-1.00 [facility] Work Phone: Comment on above: For patients on eltr ombopag therapy, use of Dimension [place] TBIL is not recommended. Chloride [Moles/Vol] 110 mmol/L 98-107 [facility] Work Phone: Eosinophils/100 WBC (Bld) 2.5 % 0-5 [facility] Work Phone: Glucose [Mass/Vol] 84 mg/dL 74-106 [facility] Work Phone: Neutrophils (Bld) [#/Vol] 7.3 10*3/uL 2.0-7.7 [facility] Work Phone: Neutrophils/100 WBC (Bld) 63.8 % 47-70 [facility] Work Phone: Potassium [Moles/Vol] 4.5 mmol/L 3.5-5.[address] [facility] Work Phone: Protein [Mass/Vol] 7.1 g/dL 6.4-8.2 [facility] Work Phone: Sodium [Moles/Vol] 138 mmol/L 136-145 [facility] Work Phone: WBC (Bld) [#/Vol] 11.5 10*3/uL 4.4-11.0 [facility] Work Phone: Blood erythrocytes count (nu mber/volume)on 06-01-2021 RBC (Bld) [#/Vol] 3.94 10*6/uL 4.6-6.2 [facility] Work Phone: Blood hemoglobin measurement (mass/volume)on 06-01-2021 Hemoglobin (Bld) [Mass/Vol] 12.9 g/dL 13.0-16.5 [facility] Work Phone: Blood lymphocytes/100 leukoc yteson 06-01-2021 Lymphocytes/100 WBC (Bld) 24.6 % 19-41 [facility] Work Phone: Blood monocytes/100 leukocyt eson 06-01-2021 Monocytes/100 WBC (Bld) 8.2 % 0-10 [facility] Work Phone: Blood platelet mean volumeon 06-01-2021 Platelet mean volume (Bld) [Entitic vol] 9.2 fL 6.2-12.0 [facility] Work Phone: Determination of erythrocyte mean corpuscular volume (MCV)on 06-01-2021 MCV (RBC) [Entitic vol] 99.0 fL 80-94 [facility] Work Phone: [phone] Erythrocyte sedimentation ra raquel 06-01-2021 ESR (Bld) [Velocity] 21 mm/h 0-20 [facility] Work Phone: [phone] Hematocrit Auto (Bld) [Volum e fraction]on 06-01-2021 Hematocrit (Bld) [Volume fraction] 39.0 % 40-54 [facility] Work Phone: [phone] Laboratory - Chemistry and C hemistry - challengeon 06-01-2021 ALP [Catalytic activity/Vol] 60 U/L 45-117 [facility] Work Phone: ALT [Catalytic activity/Vol] 38 U/L 16-61 [facility] Work Phone: [phone] CO2 [Moles/Vol] 21.0 mmol/L 21.0-32.0 [facility] Work Phone: [phone] Globulin (S) [Mass/Vol] 3.6 g/dL 2.2-4.2 [facility] Work Phone: [phone] Urea nitrogen/Creatinine [Mass ratio] 21.0 mg/mg 10-20 [facility] Work Phone: [phone] Laboratory - Hematology and Cell countson 06-01-2021 Erythrocyte distribution width (RBC) [Entitic vol] 47.4 fL 35.1-43.9 [facility] Work Phone: [phone] Erythrocyte distribution width (RBC) [Ratio] 13.0 % 11.6-14.6 [facility] Work Phone: [phone] Immature granulocytes/100 WBC (Bld) 0.500 % 0.0-0.9 [facility] Work Phone: [phone] Comment on above: IG% - Immature Granu locytes (promyelocytes, myelocytes and metamyelocytes) > 1% indicates that a LEFT SHIFT is Present. MCH (RBC) [Entitic mass] 32.7 pg 27.0-32.0 [facility] Work Phone: Nucleated RBC/100 WBC (Bld) [Ratio] 0 % 0-5 [facility] Work Phone: MCHC Auto (RBC) [Mass/Vol]on 06-01-2021 MCHC (RBC) [Mass/Vol] 33.1 g/dL 32-[address] [facility] Work Phone: No Panel Informationon 06-01 Estimated GFR (MDRD) Amer 76 mL/min >60 [facility] Work Phone: Comment on above: GFR Calc Estimated GFR (MDRD) Non-Af Amer 63 mL/min >60 [facility] Work Phone: Comment on above: Non- GFR Calc Platelets bldon 06-01-2021 Platelets (Bld) [#/Vol] 302 10*3/uL 150-450 [facility] Work Phone: Qualitative QuantiFERON-TB g old in tube teston 06-01-2021 M. tuberculosis tuberculin stim IFN-g Ql (Bld) 0.02 IU/mL . [facility] Work Phone: Serum or plasma C reactive p rotein measurement (mass/volume)on 06-01-2021 CRP [Mass/Vol] 7.40 mg/L 0.0-3.0 [facility] Work Phone: Comment on above: C-Reactive Protein ( CRP) provides useful information for thediagnosis, therapy and monitoring of inflammatory processesand associated diseases. For the evaluation of Relative Riskfor Cardiovascular Disease, a High Sensitivity CRP (HSCRP)should be ordered. Serum or plasma albumin meron urement (mass/volume)on 06-01-2021 Albumin [Mass/Vol] 3.5 g/dL 3.2-5.0 [facility] Work Phone: Serum or plasma albumin/glob ulin mass ratioon 06-01-2021 Albumin/Globulin [Mass ratio] 1.0 {ratio} 0.9-2.4 [facility] Work Phone: Serum or plasma calcium meron urement (mass/volume)on 06-01-2021 Calcium [Mass/Vol] 8.5 mg/dL 8.5-10.1 [facility] Work Phone: Serum or plasma creatinine m easurement (mass/volume)on 06-01-2021 Creatinine [Mass/Vol] 1.24 mg/dL 0.70-1.[address] [facility] Work Phone: Comment on above: The validity of the calculated GFR & GFRAA in patients over 70 years has not been determined. Clinical correlation is essential. Serum or plasma urea nitroge n measurement (mass/volume)on 06-01-2021 Urea nitrogen [Mass/Vol] 26 mg/dL 7-18 [facility] Work Phone: Thin prep Papanicolaou smear with manual screeningon 06-01-2021 Thin prep Papanicolaou smear with manual screening 19 U/L 15-37 [facility] Work Phone: Thin prep Papanicolaou smear with manual screening 7 5-15 [facility] Work Phone: Thin prep Papanicolaou smear with manual screening Comment . [facility] Work Phone: Comment on above: The QuantiFERON-TB G old Plus result is determined bysubtracting the Nil value from either TB antigen (Ag) tube.The mitogen tube serves as a control for the test. Thin prep Papanicolaou smear with manual screening 0.02 IU/mL . [facility] Work Phone: Thin prep Papanicolaou smear with manual screening 0.01 IU/mL . [facility] Work Phone: Thin prep Papanicolaou smear with manual screening > 10.00 IU/mL . [facility] Work Phone: Thin prep Papanicolaou smear with manual screening Negative Negative [facility] Work Phone: Comment on above: The specimen receive d for QuantiFERON testing was incubatedby the ordering institution. Specific procedures outlinedin our Directory of Services and in the package insert forthe QuantiFERON Gold (In Tube) test must be followed toenable for proper stimulation of cells for the productionof interferon gamma. Chemiluminescence immunoassaymethodologyPerformed at: [facility] [id number] Director: Mahesh George PhD, Phone: [phone] Vital Signs Date Time Vital Sign Value Performing Clinician Toni ba 11-02-2024 14:25-0400 Body height 177.[address] David Jacobo MD Work Phone: [facility] 11-02-2024 14:25-0400 Body mass index (BMI) [Ratio] 27.2 kg/m2 Dr. David Jacobo MD Work Phone: [facility] 11-02-2024 14:25-0400 Body weight 86.[address] David Jacobo MD Work Phone: [facility] 11-02-2024 14:25-0400 Diastolic blood pressure 74 mm[Hg] Dr. David Jacobo MD Work Phone: [facility] 11-02-2024 14:25-0400 Heart rate 52 /min Dr. David Jacobo MD Work Phone: [facility] 11-02-2024 14:25-0400 Respiratory rate 14 /min Dr. David Jacobo MD Work Phone: [facility] 11-02-2024 14:25-0400 SaO2% (BldA) [Mass fraction] 96 % Dr. aDvid Jacobo MD Work Phone: [facility] 11-02-2024 14:25-0400 Systolic blood pressure 120 mm[Hg] Dr. David Jacobo MD Work Phone: [facility] 12-12-2023 09:42-0400 Body temperature 99 [degF] Ilana Sanabria MELT HELPER.POST OFFICE MARKUP CLERK Work Phone: [facility] 12-12-2023 09:42-0400 Body weight 87.5 kg Ilana Sanabria APRN.POST OFFICE MARKUP CLERK Work Phone: [facility] 12-12-2023 09:42-0400 Diastolic blood pressure 68 mm[Hg] Ilana Call MELT HELPER.POST OFFICE MARKUP CLERK Work Phone: [facility] 12-12-2023 09:42-0400 Heart rate 75 /min MELT HELPER.POST OFFICE MARKUP CLERK Work Phone: [facility] 12-12-2023 09:42-0400 Respiratory rate 20 /min MELT HELPER.POST OFFICE MARKUP CLERK Work Phone: [facility] 12-12-2023 09:42-0400 SaO2% (BldA) [Mass fraction] 95 % MELT HELPER.POST OFFICE MARKUP CLERK Work Phone: [facility] 12-12-2023 09:42-0400 Systolic blood pressure 120 mm[Hg] MELT HELPER.POST OFFICE MARKUP CLERK Work Phone: [facility] 08-19-2023 08:40-0400 Body temperature 97.1 [degF] Dr. David Jacobo Work Phone: [facility] 08-19-2023 08:40-0400 Diastolic blood pressure 73 mm[Hg] Dr. David Jacobo Work Phone: [facility] 08-19-2023 08:40-0400 Heart rate 55 /min Dr. David Jacobo Work Phone: [facility] 08-19-2023 08:40-0400 Respiratory rate 14 /min Dr. David Jacobo Work Phone: [facility] 08-19-2023 08:40-0400 SaO2% (BldA) [Mass fraction] 100 % Dr. David Jacobo Work Phone: [facility] 08-19-2023 08:40-0400 Systolic blood pressure 139 mm[Hg] Dr. David Jacobo Work Phone: [facility] 08-19-2023 04:35-0400 Body mass index (BMI) [Ratio] 28 kg/m2 Dr. David Jacobo Work Phone: [facility] 08-19-2023 04:35-0400 Body weight 88.[address] David Jacobo Work Phone: [facility] 08-17-2023 16:55-0400 Body height 177.[address] David Jacobo Work Phone: [facility] 08-17-2023 15:59-0400 SaO2% (BldA) [Mass fraction] 96 % Dr. David Jacobo Work Phone: [facility] 08-17-2023 15:45-0400 Body temperature 98.6 [degF] Dr. David Jacobo Work Phone: [facility] 08-17-2023 15:45-0400 Diastolic blood pressure 116 mm[Hg] Dr. David Jacobo Work Phone: [facility] 08-17-2023 15:45-0400 Heart rate 72 /min Dr. David Jacobo Work Phone: [facility] 08-17-2023 15:45-0400 Respiratory rate 16 /min Dr. David Jacobo Work Phone: [facility] 08-17-2023 15:45-0400 Systolic blood pressure 184 mm[Hg] Dr. David Jacobo Work Phone: [facility] 08-17-2023 15:39-0400 Body height 177.[address] David Jacobo Work Phone: [facility] 08-17-2023 15:39-0400 Body mass index (BMI) [Ratio] 28 kg/m2 Dr. David Jacobo Work Phone: [facility] 08-17-2023 15:39-0400 Body weight 88.[address] David Jacobo Work Phone: [facility] 08-15-2023 08:43-0400 Body temperature 97.8 [degF] Dr. David Jacobo Work Phone: [facility] 08-15-2023 08:43-0400 Diastolic blood pressure 67 mm[Hg] Dr. David Jacobo Work Phone: [facility] 08-15-2023 08:43-0400 Heart rate 56 /min Dr. David Jacobo Work Phone: [facility] 08-15-2023 08:43-0400 Respiratory rate 18 /min Dr. David Jacobo Work Phone: [facility] 08-15-2023 08:43-0400 SaO2% (BldA) [Mass fraction] 96 % Dr. David Jacobo Work Phone: [facility] 08-15-2023 08:43-0400 Systolic blood pressure 137 mm[Hg] Dr. David Jacobo Work Phone: [facility] 08-14-2023 14:53-0400 Body height 177.[address] David Jacobo Work Phone: [facility] 08-14-2023 14:53-0400 Body mass index (BMI) [Ratio] 27.8 kg/m2 Dr. David Jacobo Work Phone: [facility] 08-14-2023 14:53-0400 Body weight 88.[address] David Jacobo Work Phone: [facility] 08-14-2023 13:42-0400 Body temperature 97.9 [degF] Dr. David Jacobo Work Phone: [facility] 08-14-2023 13:42-0400 Diastolic blood pressure 77 mm[Hg] Dr. David Jacobo Work Phone: [facility] 08-14-2023 13:42-0400 Heart rate 68 /min Dr. David Jacobo Work Phone: [facility] 08-14-2023 13:42-0400 Respiratory rate 18 /min Dr. David Jacobo Work Phone: [facility] 08-14-2023 13:42-0400 SaO2% (BldA) [Mass fraction] 97 % Dr. David Jacobo Work Phone: [facility] 08-14-2023 13:42-0400 Systolic blood pressure 152 mm[Hg] Dr. David Jacobo Work Phone: [facility] 08-14-2023 09:06-0400 Body height 177.[address] David Jacobo Work Phone: [facility] 08-14-2023 09:06-0400 Body mass index (BMI) [Ratio] 28.1 kg/m2 Dr. David Jacobo Work Phone: [facility] 08-14-2023 09:06-0400 Body weight 88.[address] David Jacobo Work Phone: [facility] 08-13-2023 08:11-0400 Body mass index (BMI) [Ratio] 28.7 kg/m2 Dr. David Jacobo Work Phone: [facility] 08-13-2023 08:11-0400 Body temperature 97.8 [degF] Dr. David Jacobo Work Phone: [phone] [place] [address] 08-13-2023 08:11-0400 Body weight 90.[address] Davdi Jacobo Work Phone: [facility] 08-13-2023 08:11-0400 Diastolic blood pressure 72 mm[Hg] Dr. David Jacobo Work Phone: [facility] 08-13-2023 08:11-0400 Heart rate 75 /min Dr. David Jacobo Work Phone: [facility] 08-13-2023 08:11-0400 Respiratory rate 16 /min Dr. David Jacobo Work Phone: [facility] 08-13-2023 08:11-0400 SaO2% (BldA) [Mass fraction] 96 % Dr. David Jacobo Work Phone: [facility] 08-13-2023 08:11-0400 Systolic blood pressure 132 mm[Hg] Dr. David Jacobo Work Phone: [facility] [facility] 08-02-2023 12:53-0400 Body mass index (BMI) [Ratio] 29 kg/m2 Dr. David Jacobo Work Phone: [facility] 08-02-2023 12:53-0400 Body weight 91.[address] David Jacobo Work Phone: [facility] 08-02-2023 12:53-0400 Diastolic blood pressure 77 mm[Hg] Dr. David Jacobo Work Phone: [facility] 08-02-2023 12:53-0400 Heart rate 56 /min Dr. David Jacobo Work Phone: [facility] 08-02-2023 12:53-0400 Respiratory rate 16 /min Dr. David Jacobo Work Phone: [facility] 08-02-2023 12:53-0400 Systolic blood pressure 143 mm[Hg] Dr. David Jacobo Work Phone: [facility] 06-17-2023 13:36-0500 Body height 177.[address] David Jacobo Work Phone: [facility] 06-17-2023 13:36-0500 Body mass index (BMI) [Ratio] 29.5 kg/m2 Dr. David Jacobo Work Phone: [facility] 06-17-2023 13:36-0500 Body weight 93.[address] David Jacobo Work Phone: [facility] 06-17-2023 13:36-0500 Diastolic blood pressure 77 mm[Hg] Dr. David Jacobo Work Phone: [facility] 06-17-2023 13:36-0500 Heart rate 57 /min Dr. David Jacobo Work Phone: [facility] 06-17-2023 13:36-0500 Respiratory rate 18 /min Dr. David Jacobo Work Phone: [facility] 06-17-2023 13:36-0500 SaO2% (BldA) [Mass fraction] 97 % Dr. David Jacobo Work Phone: [facility] 06-17-2023 13:36-0500 Systolic blood pressure 146 mm[Hg] Dr. David Jacobo Work Phone: [facility] 06-08-2022 16:27-0500 Body height 177.[address] David Jacobo Work Phone: [facility] 06-08-2022 16:27-0500 Body mass index (BMI) [Ratio] 29 kg/m2 Dr. David Jacobo Work Phone: [facility] 06-08-2022 16:27-0500 Body weight 91.[address] David Jacobo Work Phone: [facility] 06-08-2022 16:27-0500 Diastolic blood pressure 88 mm[Hg] Dr. David Jacobo Work Phone: [facility] 06-08-2022 16:27-0500 Heart rate 60 /min Dr. David Jacobo Work Phone: [facility] 06-08-2022 16:27-0500 Respiratory rate 18 /min Dr. David Jacobo Work Phone: [facility] 06-08-2022 16:27-0500 SaO2% (BldA) [Mass fraction] 95 % Dr. David Jacobo Work Phone: [facility] 06-08-2022 16:27-0500 Systolic blood pressure 157 mm[Hg] Dr. David Jacobo Work Phone: [facility] 12-29-2021 07:41-0400 Body height 177.[address] David Jacobo Work Phone: [facility] Work Phone: 12-29-2021 07:41-0400 Body weight 83.[address] David Jacobo Work Phone: [facility] Work Phone: 12-28-2021 09:02-0400 Body mass index (BMI) [Ratio] 26.5 kg/m2 Dr. David Jacobo Work Phone: [facility] Work Phone: 11-18-2021 14:56-0400 Body height 177.[address] David Jacobo Work Phone: [facility] Work Phone: 11-18-2021 14:56-0400 Body mass index (BMI) [Ratio] 26.6 kg/m2 Dr. David Jacobo Work Phone: [facility] Work Phone: 11-18-2021 14:56-0400 Body weight 84.[address] David Jacobo Work Phone: [facility] Work Phone: 11-18-2021 14:56-0400 Diastolic blood pressure 60 mm[Hg] Dr. David Jacobo Work Phone: [facility] Work Phone: 11-18-2021 14:56-0400 Heart rate 60 /min Dr. David Jacobo Work Phone: [facility] Work Phone: 11-18-2021 14:56-0400 Respiratory rate 16 /min Dr. David Jacobo Work Phone: [facility] Work Phone: 11-18-2021 14:56-0400 Systolic blood pressure 124 mm[Hg] Dr. David Jacobo Work Phone: [facility] Work Phone: 06-02-2021 15:12-0500 Body height 177.[address] David Jacobo Work Phone: [facility] Work Phone: 06-02-2021 15:12-0500 Body mass index (BMI) [Ratio] 25.9 kg/m2 Dr. David Jacobo Work Phone: [facility] Work Phone: 06-02-2021 15:12-0500 Body weight 82.[address] David Jacobo Work Phone: [facility] Work Phone: 06-02-2021 15:12-0500 Diastolic blood pressure 77 mm[Hg] Dr. aDvid Jacobo Work Phone: [facility] Work Phone: 06-02-2021 15:12-0500 Heart rate 58 /min Dr. David Jacobo Work Phone: [facility] Work Phone: 06-02-2021 15:12-0500 Respiratory rate 16 /min Dr. David Jacobo Work Phone: [facility] Work Phone: 06-02-2021 15:12-0500 Systolic blood pressure 133 mm[Hg] Dr. David Jacobo Work Phone: [facility] Work Phone: Encounters Encounter Date Encounter Type Care Provider Facility Start: 12-06-2024 ambulatory [facility] Facility:[facility] Start: 11-02-2024 End: 11-02-2024 Patient encounter procedure Vi Prieto NP-Juwan -[facility] Work Phone: Start: 11-02-2024 End: 11-02-[address] David Jacobo MD Work Phone: -[facility] Start: 07-27-2024 End: 07-27-[address] David [facility] MD -[facility] Start: 07-27-2024 End: 07-27-2024 ambulatory David Valdez Facility:[facility] Start: 05-19-2024 End: 05-19-2024 ambulatory [facility] Facility:[facility] Start: 05-09-2024 End: 05-09-2024 ambulatory [facility] [place] Start: 03-30-2024 End: 03-30-2024 ambulatory [facility] Facility:[facility] Start: 12-13-2023 End: 12-13-2023 Telephone encounter Popeye Saha APRN.CNP Work Phone: [facility] Comment on above: Results Start: 12-12-2023 End: 12-12-2023 ambulatory DAVID JACOBO Facility:[facility] Start: 12-12-2023 End: 12-12-2023 Patient encounter procedure Ilana Sanabria TERRI Work Phone: [facility] Comment on above: Acute cough (Primary Dx); Sorethroat Start: 08-19-2023 Non-patient / Non-visit Dr. Italo Jacobo Work Phone: [facility] Work Phone: Start: 08-18-2023 Non-patient / Non-visit Dr. Italo Jacobo Work Phone: [facility] Start: 08-18-2023 Non-patient / Non-visit Dr. Italo Jacobo Work Phone: [facility] Work Phone: Start: 08-17-2023 Non-patient / Non-visit Dr. Italo Jacobo Work Phone: [facility] Start: 08-17-2023 End: 08-19-2023 Evaluation and management of inpatient Dr. David Jacobo Work Phone: [facility]-Intensive Care Unit Work Phone: Start: 08-16-[address] David Jacobo Work Phone: [facility]-Laboratory, Specimen Work Phone: Start: 08-16-2023 End: 08-16-[address] David Jacobo Work Phone: [facility] Work Phone: Start: 08-15-2023 Non-patient / Non-visit Dr. Italo Jacobo Work Phone: [facility] Work Phone: Start: 08-14-2023 Non-patient / Non-visit Dr. Italo Jacobo Work Phone: [facility] Work Phone: Start: 08-14-2023 End: 08-15-2023 Evaluation and management of inpatient Dr. David Jacobo Work Phone: [facility]-Medical Surgical 3 Work Phone: Start: 08-13-2023 End: 08-13-[address] David Jacobo Work Phone: [facility] Work Phone: Start: 08-02-2023 End: 08-02-[address] David Jacobo Work Phone: [facility] Work Phone: Start: 07-22-2023 End: 07-22-[address] David Jacobo Work Phone: [facility] Work Phone: Start: 07-22-2023 End: 07-22-[address] David Jacobo Work Phone: [facility]-Outpatient Pavilion Ultrasound Work Phone: Start: 06-25-2023 End: 06-25-[address] David Jacobo Work Phone: [facility] Work Phone: Start: 06-25-2023 End: 06-25-[address] David Jacobo Work Phone: [facility]-Laboratory Work Phone: Start: 06-17-2023 End: 06-17-[address] David Jacobo Work Phone: [facility] Work Phone: Start: 06-10-2023 End: 06-10-2023 ambulatory [facility] Work Phone: Start: 06-10-2023 End: 06-10-2023 [facility] Work Phone: Start: 06-03-2023 End: 06-03-2023 ambulatory [facility] Work Phone: Start: 06-03-2023 End: 06-03-2023 Patient encounter procedure [facility]-Outpatient Breast Imaging Work Phone: Start: 12-16-2022 End: 01-24-2023 ambulatory DAVID JACOBO MD Facility:B Start: 12-16-2022 End: 01-24-2023 Physical therapy management ADDIE ONTIVEROS MD [facility] Start: 09-29-2022 End: 09-29-[address] David Jacobo Work Phone: [facility] Work Phone: Start: 09-29-2022 End: 09-29-[address] David Jacobo Work Phone: [facility]-MRI - [facility] Start: 08-27-2022 End: 08-27-[address] David Jacobo Work Phone: [facility] Work Phone: Start: 08-27-2022 End: 08-27-[address] David Jacobo Work Phone: [facility]-Laboratory Start: 06-08-2022 End: 06-08-[address] David Jacobo Work Phone: [facility] Start: 12-29-2021 End: 12-29-2021 Admission to same day surgery center Dr. David Jacobo Work Phone: [facility]-Facility Attendant/Special Procedures Start: 12-29-2021 End: 12-29-[address] David Jacobo Work Phone: [facility] Work Phone: Start: 12-28-2021 Non-patient / Non-visit Dr. Italo Jacobo Work Phone: [facility] Start: 12-22-2021 End: 12-22-[address] David Jacobo Work Phone: [facility] Start: 12-02-2021 Non-patient / Non-visit Dr. Italo Jacobo Work Phone: [facility] Start: 12-02-2021 End: 12-02-[address] David Jacobo Work Phone: [facility] Work Phone: Start: 12-02-2021 End: 12-02-[address] [facility] Start: 11-18-2021 End: 11-18-[address] David Jacobo Work Phone: [facility] Start: 10-24-2021 End: 10-24-2021 [facility] Start: 09-25-2021 End: 09-25-[address] David Jacobo Work Phone: [facility] Start: 06-02-2021 End: 06-02-[address] David Jacobo Work Phone: [facility] Start: 06-01-2021 End: 06-01-[address] David Jacobo Work Phone: [facility] Procedures Date Procedure Procedure Detail Performing Clinician [...] Phone: Start: 12-22-2021 Plain chest X-ray Dr. Luis Felipe Jacobo Work Phone: Start: 12-02-2021 Radionuclide imaging of perfusion of myocardium under exercise stress Dr. David Jacobo Work Phone: Plan of Treatment Date Care Activity Detail Author Start: 08-11-2030 Urine microalbumin profile DTaP,Tdap,Td Vaccine (2 - Td or Tdap) [facility] Start: 11-02-2024 Evaluation of diagno stic study results [facility] Start: 12-12-2023 End: 12-26-2023 COVID & INFLUENZA A/B & RSV PCR, ROUTINE COVID & INFLUENZA A/B & RSV PCR, ROUTINE Microbiology Routine Acute cough Sorethroat Expected: 12/12/2023, Expires: 12/26/2023 [facility] Work Phone: Comment on above: Expected: 12/12/2023 , Expires: 12/26/2023 Start: 12-11-2023 Covid-19 Vaccine ( season) Covid-19 Vaccine ( season) [facility] Start: 12-11-2023 Influenza vaccination Influenza Vacc ine (#1) [facility] Start: 08-19-2023 Patient referral [facility] Work Phone: Start: 08-19-2023 Patient discharge [facility] Start: 08-18-2023 Care planning and pr oblem solving actions [facility] Start: 08-17-2023 Following clinical pathway protocol [facility] Start: 08-17-2023 Ambulation without limitation [facility] Start: 08-17-2023 Cardiac monitoring [facility] Start: 08-17-2023 Cardiac rehabilitati on - phase 1 [facility] Start: 08-17-2023 Cardiac rehabilitati on - phase 2 [facility] Start: 08-17-2023 Notification of physician [facility] Start: 08-17-2023 Oxygen therapy [facility] Start: 08-17-2023 Patient discharge [facility] Start: 08-17-2023 Provision of activit y privileges [facility] Start: 08-17-2023 Pulse taking [facility] Start: 08-17-2023 Systemic arterial pressure monitoring [facility] Start: 08-17-2023 Taking patient vital signs [facility] Start: 08-17-2023 Vascular disease ris k assessment [facility] Start: 08-17-2023 Vital signs measurements [facility] Start: 08-17-2023 Admission procedure [facility] Start: 08-17-2023 Catheterization of l eft heart [facility] Start: 08-17-2023 Hospital admission, emergency, from emergency room, medical nature [facility] Start: 08-17-2023 End: 08-17-2023 [facility] Start: 08-15-2023 Patient discharge [facility] Start: 08-14-2023 End: 08-14-2023 [facility] Start: 08-14-2023 Following clinical pathway protocol [facility] Start: 08-14-2023 Ambulation without limitation [facility] Start: 08-14-2023 Assessment of risk o f venous thromboembolism [facility] Start: 08-14-2023 Insertion of cathete r into peripheral vein [facility] Start: 08-14-2023 Providing care accor ding to standard [facility] Start: 08-14-2023 Referral to ear, nos e and throat service [facility] Start: 08-14-2023 Microbial culture, routine Wound Culture [facility] Start: 08-14-2023 Microscopic observat ion [Identifier] in Unspecified specimen by Gram stain [facility] Start: 08-14-2023 Wound Culture Wound Culture [facility] Start: 08-14-2023 Verification routine [facility] Start: 08-14-2023 Admission procedure [facility] Start: 08-14-2023 Hospital admission, emergency, from emergency room, medical nature [facility] Start: 2020 RSV Vaccine (1 - 1-d ose 60+ series) RSV Vaccine (1 - 1-dose 60+ series) [facility] Start: 2015 Prostate specific an tigen measurement Prostate Cancer Screening Discussion [facility] Start: 2010 Shingrix Vaccine (1 of 2) Rubalcava grix Vaccine (1 of 2) [facility] Start: 2005 Diabetes Screening Diabetes Screenin g [facility] Start: 2005 Screening for malign ant neoplasm of colon [facility] Start: 1995 Lipid panel Lipid Screening [facility] Start: 1978 Anxiety Screening Anxiety Screening [facility] Start: 1978 Depression Screening Depression Scre ening [facility] Start: 1978 Hepatitis C screening Hepatitis C Sc reening [facility] Start: 1978 HIV screening HIV Screening [facility] Bacteria identified in Wound by Culture [facility] Lipid 1996 panel - S patsy or Plasma [facility] Patient referral [facility] Work Phone: Radionuclide imaging of perfusion of myocardium under exercise stress [facility] Immunizations Immunization Date Immunization Notes Care Provider Dariel cox 02-11-2010 tetanus and diphther ia toxoids, adsorbed, preservative free, for adult use (2 Lf of tetanus toxoid and 2 Lf of diphtheria toxoid) Ilana Sanabria MELT HELPER.POST OFFICE MARKUP CLERK Work Phone: [facility] Payers Date Payer Category Payer Self-pay [id number] 2020 Unknown [employer] PPO [id number] 2020-Present [phone] [place] [address] PPO [id number] 2020 Unknown [id number] 2015 Private Health Insurance [facility] [id number] 1960 Unknown [id number] Unknown [id number] Unknown [id number] Unknown [id number] Unknown [id number] Unknown [id number] Unknown [id number] Social History Date Type Detail Facility Start: 06-02-2021 End: 08-17-2023 Tobacco smoking status PRIS Unknown if ever smoked [facility] Start: 1960 Sex Assigned At Male W [facility] Start: 08-17-2023 End: 12-12-2023 Tobacco smoking status NHIS Ex-smoker [facility] History of tobacco use Current smoker [facility] History of tobacco use Cigarette Smoker C [facility] Start: 12-12-2023 Cigarettes smoked current (pack per day) - Reported 1.5 [facility] History of tobacco use Passive smoker [facility] Start: 12-12-2023 Tobacco use and exposure Smokeless tobacco non-user [facility] Start: 12-12-2023 Alcoholic beverage intake Current drinker of alcohol (finding) [facility] Start: 12-12-2023 Tobacco use panel [facility] Start: 1960 Sex assigned at Not on file C [facility] Medical Equipment Procedure Code Equipment Code Equipment Origin al Text Equipment Identifier Dates Drug-eluting coronary artery stent, [id number] lymer-coated ()[id number] FDA Start: 08-18-2023 Goals Date Patient Goal Desired Activity /State Functional Status Date Assessment Result Facility 08-19-2023 Functional status Ambulates;Up ad chauncey [facility] Work Phone: 08-15-2023 Functional status Up ad chauncey [facility] Work Phone: 12-16-2022 Functional Status [...] Head impulse test(quick rotation): NTVOR cancellation: NT, [id number](norm 6 cm from nose): , Ocular motor testing: visual tracking grossly intact bilat Visual acuity: 20/15 Modified CTSIB: 15% impairment 2.2 Vest[facility]: [facility] hallpike[facility] Mental Status Date Assessment Result Facility 08-19-2023 Cognitive function Voice/Name [facility] Work Phone: 08-17-2023 Cognitive function Level Of Cons ciousness Awake;Alert;Appropriate [facility] Work Phone: 08-15-2023 Cognitive function Voice/Name [facility] Work Phone: Clinical Notes 11-09-2020 to 12-13-2023 Telephone Encounter - Prema Auguste RN - 12/13/2023 11:29 AM EDTTelephone Encounter - Prema Auguste RN - 12/13/2023 11:29 AM EDTCIlana livingston APRN.MARIO ALBERTO - 12/12/2023 9:49 AM EDT Note Date & Type Note Facility 12-13-2023 Telephone encount er Note Pt returned call and given provider's message below with verbalized understanding. Patient agreeable. [facility] 12-13-2023 Miscellaneous Notes Formattin g of this [...] days, such as taking additional steps for machinery cleaner air, hygiene, masks, physical distancing, and/or testing when you will be around other people indoors. You may be eligible for antiviral treatment. Please PCP office discuss your eligibility. Please contact us if your symptoms are worsening or not improving. Please advise patient documented in this encounter [facility] 12-13-2023 Telephone encount er Note You tested [...] days, such as taking additional steps for machinery cleaner air, hygiene, masks, physical distancing, and/or testing when you will be around other people indoors. You may be eligible for antiviral treatment. Please PCP office discuss your eligibility. Please contact us if your symptoms are worsening or not improving. Please advise patient [facility] Work Phone: 12-12-2023 History of Presen t illness Narrative Sanjeev HPI Fuad presents with three day hx of of sore throat, cough and fever. He states he feels better today and no fever. He and his just returned from [place]. He is eating and drinking well. Denies [...] if symptoms persist or worsen Ilana Sanabria APRN.POST OFFICE MARKUP CLERK documented in this encounter [facility] 12-12-2023 Note HNO ID: [id number] Author: ILANA SANABRIA APRN.[facility] Service: ? Author Type: Nurse Practitioner Type: Progress Notes Filed: 12/12/2023 09:59 Note Text: Subjective HPI Fuad presents with three day hx of of sore throat, cough and fever. He states he feels better today and no fever. He and his just returned from [place]. He is eating and drinking well. Denies [...] if symptoms persist or worsen Ilana Sanabria APRN.[facility] 08-18-2023 Progress note Note Date/Time August 18, 2023 10:18am [facility] Medical Records Department [address] [place] [address] Progress Note - Cardiology 08/18/23 1017 MR#: [id number] Acct: [id number] Name: FUAD KERR Rep #:[id number] : 1960 63 From: Sav Abrams MD PCP: Dr. David Jacobo MD Status:ADM IN Location: ICU ICU10-1 Subjective Subjective Denies any complaints. No chest pains or shortness of breath. Objective Data Vital Signs: Vital Signs Temp Pulse Resp BP Pulse Ox O2 Del Method 97.8 F 55 L 15 117/61 99 Room Air 08/18/23 08:00 08/18/23 10:08/18/23 10:08/18/23 10:08/18/23 10:08/18/23 10:00 Oxygen Delivery Method Room Air [...] % (Auto) 66.3, Lymph % (Auto) 21.9, Potter % (Auto) 8.7, Eos % (Auto) 0.6, [...] % (Auto) 66.3, Lymph % (Auto) 21.9, Potter % (Auto) 8.7, Eos % (Auto) 0.6, [...] drug-eluting stent. Excellent results were noted with jehovah's witness of WAI-3 flow. Continue aspirin lifelong. Continue clopidogrel. (2) 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 disease: PLAN: See #1 above. Aspirin, clopidogrel, statins. (3) Dyslipidemia: PLAN: Atorvastatin. (4) Essential hypertension: PLAN: Amlodipine and telmisartan. PLAN: Plan Home tomorrow if continues to be hemodynamically stable. 08/18/23 1018 <Electronically signed by Sav Abrams MD> Cosigner Signature (if applicable): CC: ~ Signed [facility] Work Phone: 1(184) 257-322305-09-2024 Progress note Author Dorene Rodriguez [facility] August 18, 2023 8:50am Note Date/Time August 18, 2023 7:25am [facility] [facility] Medical Records Department [address] [place] [address] Progress Note - Hospitalist 08/18/23 0710 MR#: [id number] Acct: [id number] Name: FUAD KERR Rep #:[id number] : 1960 63 From: Dorene Rodriguez DO PCP: Dr. David Jacobo MD Status:ADM IN Location: ICU ICU10-1 Reason for Visit Reason for Visit: Chest pain Subjective Subjective Mr. Kerr is a 63-year-old white male who presented to the emergency department at [facility] on 08/17/2023 with chest pain that [...] 227. He was taken emergently to the Facility Attendant and this revealed in-stent thrombosis in the [...] % (Auto) 66.3, Lymph % (Auto) 21.9, Potter % (Auto) 8.7, Eos % (Auto) 0.6, [...] with BELKYS to mid RPDA placed in Facility Attendant on admission -Previous stent was placed in [...] -Full code Charges/Coding Visit Charges Inpatient E&M: 81266 Subs Hosp L2 08/18/23 0850 <Electronically signed by Dorene Rodriguez DO> Cosigner Signature (if applicable): CC: ~ Signed [facility] Work Phone: 1(239) 732-206105-09-2024 Discharge summary Author David Myers [facility] August 18, 2023 12:34am Note Date/Time August 17, 2023 3:52pm [facility] Medical Records Department [address] [place] [address] Emergency Department Summary 08/17/23 MR#: [id number] Acct: [id number] Name: FUAD KERR Rep #:[id number] : 1960 63 From: David Walker PCP: [...] recently. CVD Risk Factors: Positive for Hypertension [facility] Medical History Abnormal stress test Angina pectoris Atherosclerotic heart disease of [place] coronary artery without angina pectoris Breast mass, [...] He will see the patient in the Facility Attendant. Patient was given aspirin, heparin, and Brilinta. Facility Attendant was ready and the patient was taken [...] sinus rhythm with a rate of 73. ID interval was normal at 168 ms. QRS interval was normal at 90 ms. QTc interval was normal at 398 ms. [place] was normal at 66. There is ST elevation in leads II, III, and aVF. There are reciprocal changes in leads I, aVL, and V2 through V5. Prior EKG tracings: available for review Prior: Changed (The ST elevation is new compared to previous EKG dated 11/18/2021) Management Discussion w/another healthcare provider: Hospitalist and Second Language Tutor Treatment and Re-Evaluation :: Patient was prepped for Facility Attendant in the emergency department. Patient was transferred to the Facility Attendant. Case was discussed with the hospitalist. She willadmit the patient to her service after patient goes to the Facility Attendant. Patient understood and was agreeable with the [...] Provider] - Disposition Disposition: Acute Care Hospital [facility] What to do if you have Problems For any increased pain, shortness of breath, bleeding, nausea or vomiting, chestpain, or any unexpected problems, contact your Primary Care Provider. Call [facility] ([phone]) or report to the closest Emergency Room. Call 911 if necessary. 08/18/2333 <Electronically signed by David Myers DO> Cosigner Signature (if applicable): CC: Dr. David Jacobo MD ~ Signed [facility] Work Phone: 1(992) 111-409205-08-2024 History and physical note Author Conchita Ty [facility] August 17, 2023 6:52pm Note Date/Time August 17, 2023 3:46pm [facility] Medical Records Department [address] [place] [address] History & Physical Exam 08/17/23 1546 MR#: [id number] Acct: [id number] Name: FUAD KERR Rep #:[id number] : 1960 63 From: Conchita Ty MD [...] EKG done by EMSshowed inferior ST elevation CA. STEMI alert was called. Patient was given aspirin and heparin as well as Brilinta in the ED and he was sent emergently to the Facility Attendant for cardiac catheterization. Patient was seen in [...] to be managed for acute ST elevation CA. [facility] Medical History Abnormal stress test Angina pectoris Atherosclerotic heart disease of [place] coronary artery without angina pectoris Breast mass, [...] inferior leads * sent emergently to the forestry laborer where cardiac cath showed 100% in-stent thrombosis [...] above. * Now presenting with ST elevation CA. Management as above. * * #Right breast [...] elects to be full code. * Total apvs-wd-pppp time 17 minutes. Charges/Coding Visit Charges Inpatient E&M: 47833 Init Hosp L3 Procedures Hospitalists Procedures: 42004 Advncd Care Plan 30 Min 08/17/23 1852 <Electronically signed by Conchita Ty MD> Cosigner Signature (if applicable): CC: Dr. David Jacobo MD; Dr. Conchita Ty MD~ Signed [facility] Work Phone: 1(193) 412-294305-08-2024 Consult note Author [facility] August 17, 2023 5:04pm Note Date/Time August 17, 2023 5:03pm [facility] Medical Records Department [address] [place] [address] Consultation - Cardiology 08/17/23 1657 MR#: [id number] Acct: [id number] Name: FUAD KERR Rep #:[id number] : 1960 63 From: Sav Abrams MD [...] drug-eluting stent. Excellent results were noted with jehovah's witness of WAI-3 flow. Continue aspirin lifelong. Continue [...] infarction. Subsequently a STEMI alert was called. [facility] Medical History Abnormal stress test Angina pectoris Atherosclerotic heart disease of [place] coronary artery without angina pectoris Breast mass, [...] % (Auto) 66.3, Lymph % (Auto) 21.9, Potter % (Auto) 8.7, Eos % (Auto) 0.6, [...] % (Auto) 66.3, Lymph % (Auto) 21.9, Potter % (Auto) 8.7, Eos % (Auto) 0.6, [...] EPS: PPM: CXR: Chest CT Scan: 08/17/23 1704 <Electronically signed by Sav Abrams MD> Cosigner Signature (if applicable): CC: Dr. David Jacobo MD~ Signed [facility] Work Phone: 1(474) 163-898505-06-2024 Progress note Author Cisco Lincoln [facility] August 15, 2023 8:39am Note Date/Time August 15, 2023 8:39am [facility] Medical Records Department [address] [place] [address] Progress Note 08/15/23 0836 MR#: [id number] Acct: [id number] Name: FUAD KERR Rep #:[id number] : 1960 63 From: Cisco Lincoln MD PCP: Dr. David Jacobo MD Status:ADM IN Location: [place] [address] Progress Note The patient is feeling better [...] Cosigner Signature (if applicable): CC: ~ Signed [facility] Work Phone: 1(120) 470-653405-05-2024 Discharge summary Author Nydia Rivers [facility] August 14, 2023 7:16pm Note Date/Time August 14, 2023 10:18a m [facility] Medical Records Department [address] [place] [address] Emergency Department Summary 08/14/23 MR#: [id number] Acct: [id number] Name: FUAD KERR Rep #:[id number] : 1960 63 From: Nydia Rivers MD PCP: Dr. David Jacobo MD Status:ADM IN Location: [place] [address] HPI History of Present Illness Chief Complaint: Sore Throat Informant: patient Onset/Context/Timing Onset: Days (5 days) Context: Gradual Onset Narrative Narrative: Patient presents secondary to right ear and right throat pain for the past 5 days. He was on vacation in [place] at the time of onset. He had subjective fevers at the time but no way of checking his temperature. [facility] and diagnosed with strep pharyngitis. No swab was performed. Patient was started on prednisone and Pen-Vee K. Patient had increased pain and swelling today and presents to the emergency room. [facility] Medical History Abnormal stress test Angina pectoris Atherosclerotic heart disease of [place] coronary artery without angina pectoris Breast mass, [...] 89.7 H Lymph % (Auto) 5.8 L Potter % (Auto) 4.0 Eos % (Auto) 0.0 [...] ENT. Patient is on Plavix, so Dr. Corona will see the patient in consult with [...] Provider] - Disposition Disposition: Acute Care Hospital [facility] What to do if you have Problems For any increased pain, shortness of breath, bleeding, nausea or vomiting, chestpain, or any unexpected problems, contact your Primary Care Provider. Call [facility] ([phone]) or report to the closest Emergency Room. Call 911 if necessary. 08/14/231915 <Electronically signed by Nydia Rivers MD> Cosigner Signature (if applicable): CC: Dr. David Jacobo MD ~ Signed [facility] Work Phone: 1(687) 512-870005-05-2024 Progress note Author Cisco Lincoln [facility] August 14, 2023 4:04pm Note Date/Time August 14, 2023 4:04pm [facility] Medical Records Department [address] [place] [address] Progress Note 08/14/23 1557 MR#: [id number] Acct: [id number] Name: FUAD KERR Rep #:[id number] : 1960 63 From: Cisco Lincoln MD PCP: Dr. David Jacobo MD Status:ADM IN Location: MS3 VP157-6 Progress Note Asked to see the patient [...] test Angina pectoris Atherosclerotic heart disease of [place] coronary artery without angina pectoris Breast mass, [...] Cosigner Signature (if applicable): CC: ~ Signed [facility] Work Phone: 1([phone]) 848-653805-05-2024 History and physical note Author Eleno Quijano [facility] August 14, 2023 1:09pm Note Date/Time August 14, 2023 12:45p [facility] Medical Records Department [address] [place] [address] H&P Exam - Hospitalist 08/14/23 1238 MR#: [id number] Acct: [id number] Name: FUAD KERR Rep #:[id number] : 1960 63 From: Eleno Quijano MD [...] right breast hematoma from trauma at work [facility] Medical History Abnormal stress test Angina pectoris Atherosclerotic heart disease of [place] coronary artery without angina pectoris Breast mass, [...] 89.7 H, Lymph % (Auto) 5.8 L, Potter % (Auto) 4.0, Eos % (Auto) 0.0, [...] 16 minutes. Charges/Coding Visit Charges Inpatient E&M: 96992 Init Hosp L2 Procedures Hospitalists Procedures: 94387 Advncd Care Plan 30 Min 08/14/23 1309 <Electronically signed by Eleno Quijano MD> Cosigner Signature (if applicable): CC: Dr. Eleno Quijano MD; Dr. 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 Dyslipidemia chronic Essential hypertension chron ic Presence of stent in coronary artery November, chronic Strep pharyngitis acute Abscess, peritonsillar acute [facility] Work Phone: 1(308) 495-544308-01-2021 Evaluation note* Diagnosis Onset Date Resolution Status Breast mass, right acute 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 Dyslipidemia chronic Essential hypertension chron ic Presence of stent in coronary artery November, chronic Strep pharyngitis acute Abscess, peritonsillar acute Breast mass, right acute Acute ST elevation myocardial infarction (STEMI) acute Essential hypertension chron ic [facility] Work Phone: 1(223) 733-726208-01-2021 Evaluation note* Diagnosis Onset Date Resolution Status Breast mass, right acute 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 Dyslipidemia chronic Essential hypertension chron ic Presence of stent in coronary artery November, chronic Strep pharyngitis acute Abscess, peritonsillar acute Breast mass, right acute Abscess, peritonsillar acute Acute ST elevation myocardial infarction (STEMI) acute Breast mass, right acute 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 Dyslipidemia chronic Essential hypertension chron ic [facility] Work Phone: 1([phone]) 977-669908-01-2021 Evaluation note* Diagnosis Onset Date Resolution Status Admit Date 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 disease chronic J meghana 2024 2:13pm Essential hypertension chronic Ju ly 2024 2:13pm Presence of stent in coronar y artery November, chronic November 02, 2024 2:13pm Chest pain resolved November 02 2:13pm Dyslipidemia inactive November 02, 2 025 2:13pm [facility] Work Phone: Consult note Author Siis Burleson [facility] August 15, 2023 10:44am Note Date/Time August 15, 2023 10:44a m [facility] Medical Records Department [address] [place] [address] Counseling Note - Pharmacy 08/15/23 1044 MR#: [id number] Acct: [id number] Name: FUAD KERR Rep #:[id number] : 1960 63 From: Sisi Burleson PCP: Dr. David Jacobo MD Status:ADM IN Y Location: [place] NO280-7 Pharmacy [facility]acy Service has performed discharge [...] Signature (if applicable): Date CC: ~ Signed [facility] Work Phone: Discharge summary Author Dorene Rodriguez [facility] August 15, 2023 10:19am Note Date/Time August 15, 2023 10:04a [facility] Medical Records Department [address] [place] [address] Discharge Summary 08/15/23 1004 MR#: [id number] Acct: [id number] Name: FUAD KERR Rep #:[id number] : 1960 63 From: Dorene Rodriguez DO PCP: Dr. David Jacobo MD Status:ADM IN Location: [place] QU132-1 Providers Date of Admission: 08/14/23 Date of [...] white male who presents emergency department at [facility] on 08/14/2023 due to a earache [...] RDW Std Deviation 41.2, RDW Coeff of Olri 11.8, Plt Count 297, MPV 9.2, Immature Gran % (Auto) 0.400, Neut % (Auto) 89.7 H, Lymph % (Auto) 5.8 L, Potter % (Auto) 4.0, Eos % (Auto) 0.0, [...] 88.4 H, Lymph % (Auto) 8.0 L, Potter % (Auto) 2.9, Eos % (Auto) 0.0, [...] Self Care Charges/Coding Visit Charges Inpatient E&M: 30642 Disch Hosp >30min 08/15/23 1019 <Electronically signed by Dorene Rodriguez DO> Cosigner Signature (if applicable): CC: Dr. David Jacobo MD; Dr. Dorene Rodriguez DO; Dr. Cisco Lincoln MD~ Signed [facility] Work Phone: Discharge summary Author Dorene Rodriguez [facility] August 19, 2023 11:29am Note Date/Time August 19, 2023 11:21 am [facility] Medical Records Department [address] [place] [address] Discharge Summary 08/19/23 1120 MR#: [id number] Acct: [id number] Name: FUAD KERR Rep #:[id number] : 1960 63 From: Dorene Rodriguez DO PCP: Dr. David Jacobo MD Status:ADM IN Location: [place] [address]- 1 Providers Date of Admission: 08/17/23 Date of Discharge: 08/19/23 Primary Care Physician: Dr. David Jacobo MD Reason For Visit: ACUTE STEMI Diagnosis Discharge Diagnosis (1) Acute ST elevation myocardial infarction (STEMI): Status: Acute Code(s): I21.3 - ST elevation (STEMI) myocardial infarction of unspecified site (2) 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 disease: Status: Chronic Code(s): I25.10 - Atherosclerotic heart disease of [place] coronary artery without angina pectoris (3) Dyslipidemia: [...] who presented to the emergency department at [facility] on 08/17/2023 with chest pain that [...] 227. He was taken emergently to the Facility Attendant and this revealed in-stent thrombosis in the [...] not ordered:: Drug Interaction Done w/ Acute CA measure.: Yes Documented LVEF (%): 65 Ischemic [...] Self Care Charges/Coding Visit Charges Inpatient E&M: 63780 Disch Hosp >30min 08/19/23 1129 <Electronically signed by Dorene Rodriguez DO> Cosigner Signature (if applicable): CC: Dr. David Jacobo MD; Dr. Dorene Rodriguez DO; Dr. Cisco Lincoln MD~ Signed [facility] Work Phone: Evaluation + Plan note No data available for this section [facility] Evaluation noteNo assessment information available [facility] Work Phone: Evaluation note* Diagnosis Onset Date Resolution Status Angina pectoris acute Atherosclerotic heart diseas e of [place] coronary artery without angina pectoris acute Essential hypertension acute HLD (hyperlipidemia) acute Myalgia acute Presence of stent in coronary artery November, acute [facility] Work Phone: Evaluation note* Diagnosis Onset Date Resolution Status Atherosclerotic heart diseas e of [place] coronary artery without angina pectoris chronic Essential hypertension chron ic HLD (hyperlipidemia) chronic [facility] Work Phone: Evaluation note* Diagnosis Onset Date Resolution Status Breast mass, right acute [facility] Work Phone: evaluation note* Diagnosis Acute cough- Primary Sorethroat Acute pharyngitis documented in this [facility] Eleno Quijano [facility] August 14, 2023 1:09pm Note Date/Time August 14, 2023 12:45p [facility] Medical Records Department [address] [place] [address] H&P Exam - Hospitalist 08/14/23 1238 MR#: [id number] Acct: [id number] Name: FUAD KERR Rep #:[id number] : 1960 63 From: Eleno Quijano MD PCP: Dr. David Jacobo MD Status:[facility] ER Location: ED HPI - General General [...] right breast hematoma from trauma at work [facility] Medical History Abnormal stress test Angina pectoris Atherosclerotic heart disease of [place] coronary artery without angina pectoris Breast mass, [...] 89.7 H, Lymph % (Auto) 5.8 L, Potter % (Auto) 4.0, Eos % (Auto) 0.0, [...] 16 minutes. Charges/Coding Visit Charges Inpatient E&M: 74286 Init Hosp L2 Procedures Hospitalists Procedures: 79279 Advncd Care Plan 30 Min 08/14/23 1309 <Electronically signed by Eleno Quijano MD> Cosigner Signature (if applicable): CC: Dr. Eleno Quijano MD; Dr. David Jacobo MD~ Signed [facility] Work Phone: Hospital Discharge instructions No data available for this section [facility] Progress note No data available for this section [facility] Reason for referral (narrative)No reason for [facility] Work Phone: Chief Complaint and Reason for Visit Chief Complaint 3 M FU PAIN- COPY PCP Reason for Visit Atherosclerotic hear t disease of [place] coronary artery without angina pectoris Essential hypertension Myalgia Presence of stent in coronary artery Chief Complaint PAIN- COPY PCP EORDERS Chief Complaint PAIN- COPY PCP EORDERS 1 Y FU ANGIA PECTORIS ANGIA PECTORIS Reason for Visit Angina pectoris Atherosclerotic heart disease of [place] coronary artery without angina pectoris Essential hypertension HLD (hyperlipidemia) Myalgia Presence of stent in coronary artery Chief Complaint PAIN- COPY PCP EORDERS 1 Y FU ANGIA 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 CAD, STENT IN CORONARY ARTERY, ABN STRESS, CP, SOB CAD, STENT IN CORONARY ARTERY, ABN STRESS, CP, SOB Reason for Visit Angina pectoris Atherosclerotic heart disease of [place] coronary artery without angina pectoris Essential hypertension HLD (hyperlipidemia) Myalgia Presence of stent in coronary artery Chief Complaint 6 M FU INT LAB Reason for Visit Atherosclerotic hear t disease of [place] coronary artery without angina pectoris Essential hypertension HLD (hyperlipidemia) Chief Complaint 6 M FU INT LAB Dizziness and giddiness Reason for Visit Atherosclerotic hear t disease of [place] coronary artery without angina pectoris Essential hypertension [...] Recorded Date/ Time Living Will No May 29 11:29am Power of Administrative Office Clerk No May 29, 2021 11:29am Advance Directive Response Recorded Date/ Time Advance Directives No December 7:41am Living Will No December 29, 2021 7:41am Power of Administrative Office Clerk No December 7:41am Advance Directive Response Recorded Date/ Time Advance Directives No December 6:41am Living Will No December 29, 2021 6:41am Power of Administrative Office Clerk No December 6:41am Advance Directive Response Recorded Date/ Time Name of Medical Power of Administrative Office Clerk August 14, 2023 11:32am Advance Directives No December 7:41am Living Will Yes August 14, 2023 11 :32am Power of Administrative Office Clerk Yes August 14, 2023 11:32am Advance Directive Response Recorded Date/ Time Name of Medical Power of Administrative Office Clerk August 14, 2023 2:53pm Advance Directives No December 7:41am Living Will No August 14, 2023 2: 53pm Power of Administrative Office Clerk No August 14, 2023 2:53pm Advance Directive Response Recorded Date/ Time Name of Medical Power of Administrative Office Clerk August 14, 2023 2:53pm Advance Directives No December 7:41am Living Will No August 17, 2023 3: 54pm Power of Administrative Office Clerk No August 17, 2023 3:54pm Advance Directive Response Recorded Date/ Time Name of Medical Power of Administrative Office Clerk August 14, 2023 2:53pm Advance Directives No December 7:41am Living Will No August 17, 2023 4: 55pm Power of Administrative Office Clerk No August 17, 2023 4:55pm Advance Directive [...] Provider, Referring P rovider Active Tanner Granger SCENE AND LIGHTING DESIGN LECTURER, SCENE AND LIGHTING DESIGN LECTURER-C Attending Provider Active Team Status: Inactive Member Role Status Dates Dr. David Jacobo MD Primary Care Provider Active Tanner Granger NP, SCENE AND LIGHTING DESIGN LECTURER-C Attending Provider, Referring Pro vider Active Team [...] Jacobo MD Primary Care Provider Active Dr. Dvaid Myers DO Emergency Provider Active Dr. Conchita [...] Dr. Dorene Rodriguez DO Attending Provider Active Insurance Underwriter Relationship Specialty Start Date End Date David Jacobo MD PCP - [facility] Medicine 12/31/15 Insurance Underwriter Relationship Specialty Start Date End Date David Jacobo MD PCP - [facility] Medicine 12/31/15 Team Status: Active Member Role/Relationship [...] 2024 End: November 02, 2024 Vi Prieto SCENE AND LIGHTING DESIGN LECTURER, SCENE AND LIGHTING DESIGN LECTURER-C Attending Provider Active Start: November 02, 2024 End: November 02, 2024 (unrecognized sect ion and content) No Status Records FoundNo Status Records FoundNo Status Records Found INFORMATION SOURCE (unrecogn ized section and content) DATE CREATED AUTHOR 01/25/2023 [facility] [place] DATE CREATED AUTHOR AUTHOR'S ORGANIZ ATION 12/14/2023 [facility] DATE CREATED AUTHOR AUTHOR'S ORGANIZ ATION 12/07/2024 [facility] Source Comments (unrecognize d section and content) In the event this informatio n is protected by the Federal Confidentiality of Alcohol and Drug Abuse Patient Records regulations: The Federal rules restrict any use of the information to criminally investigate or prosecute any alcohol or drug abuse patient.[facility] the event this information is protected by the Federal Confidentiality of Alcohol and Drug Abuse Patient Records regulations: The Federal rules restrict any use of the information to criminally investigate or prosecute any alcohol or drug abuse patient.[facility] Reason for Visit (unrecogniz ed section and [...] BE BASED ON THE PRIMARY CLINICAL RECORDS. [facility]. provides no warranty or guarantee of the accuracy or completeness of information in this document.
[2024-12-10 08:51] LABS: Hematocrit 40.9 % (40-54); Hemoglobin 13.8 g/dL (13.0-16.5); Immature Granulocytes Count 0.060 X10^3/uL (0.0-0.0); Mean Corp Hgb Conc 33.7 g/dL (32-36); Mean Corpuscular Volume 95.6 fL (80-94); Mean Platelet Vol. 9.5 fl (6.2-12.0); NRBC Flagged by Analyzer 0 % (0-5); Platelet Count 270 K/mm3 (150-450); RBC Distribution Width CV 12.1 % (11.6-14.6); RBC Distribution Width SD 41.8 fl (35.1-43.9); Red Blood Count 4.28 M/mm3 (4.6-6.2); White Blood Count 12.4 K/mm3 (4.4-11.0)
[2024-12-10 10:02] LABS: Anion Gap 11 (5-15); BUN 18 mg/dL (4-19); BUN/Creat Ratio 17.1 RATIO (10-20); Calcium,Total 9.4 mg/dL (7.6-11.0); Carbon Dioxide 22.8 mmol/L (21.0-32.0); Chloride 102 mmol/L (98-108); Estimated Creatinine Clearance 72.69 ml/min (50-250); Glucose 122 mg/dL (70-99); Potassium 4.9 mmol/L (3.3-5.1)
[2024-12-10 11:42] VITALS: BP 148/73; PULSE 89; RESP 16; TEMP 36.6; O2SAT 99
== END 2024-12-10 11:46 | disposition home or self-care (01) ==
PROVIDERS: Emergency Provider Emergency Medicine; PCP Family Medicine; Visit Provider Emergency Medicine
DX: I80.8 Phlebitis and thrombophlebitis of other sites (principal); I25.10 Atherosclerotic heart disease of native coronary artery without angina pectoris; I10 Essential (primary) hypertension; E78.5 Hyperlipidemia, unspecified; I25.2 Old myocardial infarction; Z79.82 Long term (current) use of aspirin; Z79.02 Long term (current) use of antithrombotics/antiplatelets; Z79.899 Other long term (current) drug therapy; Z87.891 Personal history of nicotine dependence; Z95.1 Presence of aortocoronary bypass graft; Z95.5 Presence of coronary angioplasty implant and graft
CPT/HCPCS: 73080; 80048; 85025; 93971; 96374; 96375; 99283; A4216; J2405

== ENCOUNTER 2025-01-30 07:18 | Day surgery (SDC) | payer OTHER, SELFPAY ==
[2021-03-30 09:40] VITALS: BMI 25.4
--- NOTE | 2025-01-03 15:30 | PCM.HP.BLA ---
History and Physical Date of Admission: 01/30/25 This is a 64-year-old male who presents today for cardiac catheterization following an abnormal stress test. He has a history of coronary artery disease has had drug-eluting stents placed to his mid RCA and mid right PDA in 2020. In 2023, he presented with an inferior STEMI after having stopped aspirin and clopidogrel for a surgical procedure. 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 Successful percutaneous intervention was performed with placement of a drug-eluting stent. From a cardiac standpoint, the patient is doing well. He does acknowledge chest pain with exertion, and at work in the hot weather. He states this is located left chest, and is a soreness. He denies any palpitations, pressure or heaviness. He does acknowledge slight SOB with exertion. He denies Orthopnea, and PND. He does not have bleeding issues; no blood in urine, stool, or nosebleeds. He denies any decrease in energy level, myalgias, or claudication. He does not have edema, or sudden weight gain. He does acknowledge occasional lightheadedness with "working hard". He denies dizziness, syncopal or near syncopal episodes, and headaches. Intake Vital Signs See EMR Allergies See EMR Medications See EMR [facility] Medical History Acute ST elevation myocardial infarction (STEMI) (~08/17/23) Strep pharyngitis Abscess, peritonsillar Dyslipidemia 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 disease Breast mass, right History of left heart catheterization (LHC) (~12/29/21) SOB (shortness of breath) Abnormal stress test Angina pectoris HLD (hyperlipidemia) Myalgia Tobacco abuse Essential hypertension Presence of stent in coronary artery (~11/15/20) Atherosclerotic heart disease of [place] coronary artery without angina pectoris STEMI (ST elevation myocardial infarction) Psoriasis Smoker Psoriatic arthritis Surgical History Presence of stent of CABG (~08/17/23) History of coronary artery stent placement Presence of coronary angioplasty implant and graft (~11/15/20) Family History Mother Thyroid disorder Social History Smoking Status: Former smoker Tobacco: How many years used: 42 how long ago did patient quit smokin months alcohol intake: current details: occassional substance use type: does not use caffeine: Yes Type: coffee Number of servings: 1 ROS Const Const: Negative for fatigue, weakness, fever(s), headache(s), chills, frequent falls, weight gain or weight loss Eyes Eyes: Negative for blind spots, loss of peripheral vision, transient loss of vision, blurry vision, change in vision, double vision, floaters or tunnel vision ENT ENT: Negative for headache(s), dizziness, Nosebleed/epistaxis, balance problems or neck pain Cardio Chest Pain: Yes Frequency: other Onset: exercise Location: left chest Palpitations: No Edema: None Muscle aches with walking: None Resp Respiratory: Positive for SOB with activity; Negative for SOB at rest or SOB orthopnea\\SOB lying down GI GI: Negative nausea, vomiting, heartburn, bloating, vomiting blood/hematemesis, bright, red blood in stools or black,tarry stools Musc Musc: Negative for muscle aches/ myalgia, muscle weakness, joint pain or balance problems Neuro Neuro: Positive for lightheadedness; Negative for dizziness, near syncope, syncope, orthostatic symptoms, frequent falls, headache(s), weakness, blurry vision or double vision [place] Hematologic/Lymphatic: Negative for easy bleeding or easy bruising Endo Endo: Negative for fatigue Cardiology Exam Const Appearance: cooperative, comfortable and no acute distress Nutritional Appearance: well nourished and overweight Orientation: alert and oriented x3 Head Head: normal to inspection Ears: hearing grossly normal bilaterally Nose: external nose normal Face and Sinus: face symmetric Eyes General: appearance normal, both eyes and all related structures Eyelids: eyelids normal Conjunctivae: conjunctivae normal Pupils: PERRL and pupil size EOM: EOM intact bilaterally Neck Neck: normal visual inspection and no JVD Carotids: Negative bruit Chest Chest inspection: normal inspection of the chest and normal respiratory effort Auscultation: Bilateral: Clear to Auscultation Cardio Palpation: normal PMI Rate: regular rate Rhythm: regular rhythm Heart sounds: S1 normal and S2 normal GI GI: normal to inspection and soft Neuro General: patient alert, patient awake and patient oriented x3 Skin Skin: no rashes or lesions noted Extremities Pulses: Normal: Right Posterior Tibial Pulse, Left Posterior Tibial Pulse, Right Radial Pulse and Left Radial Pulse Lower Extremity Edema: None: Bilateral Psych Psychological: normal affect Supplemental Info Supplemental Information ECHOCARDIOGRAM 08/17/23: Interpretation Summary Mild concentric left ventricular hypertrophy. The left ventricular ejection fraction is 65 %. Mild inferior hypokinesis. Mild tricuspid valve insufficiency. Right ventricular systolic pressure estimated to be 36 mmHg. Mildly dilated aortic root. CARDIAC CATHETERIZATION 08/17/23: CONCLUSIONS 100% in-stent thrombosis Mid RPDA LVEF 60% Successful PTCA/BELKYS Mid RPDA using Corona [place] 2.75x34 mm, optimized proximally using 3.0 mm balloon RECOMMENDATIONS ASA Indefinitley Plavix for at least 12 months CORONARY ANGIOGRAPHY DOMINANCE: Right Dominant LEFT HEART ASSESSMENT Left Ventricular Ejection Fraction: by LV Gram 60 % LVEDP: 28 mmHg LEFT MAIN: Tubular 20% Ostial lesion in LMCA LEFT ANTERIOR DESCENDING ARTERY: LAD: Luminal Irregularities 30% Proximal lesion in LAD OM 1: Tubular 50% Proximal lesion in MARG1 OM 2: Tubular 50% Proximal lesion in MARG1 RAMUS: Luminal Irregularities 20% Proximal lesion in Ramus RIGHT CORONARY ARTERY: RCA: Tubular 30% Proximal lesion in RCA Eccentric 50% Distal lesion in RCA RT PDA: Thrombus 100% Mid lesion in RT PDA INTERVENTION INFORMATION LESION SITE: Rt PDA (Mid) Lesion Complexity: High/C, lesion length: 32 mm, culprit lesion: Yes, In-stent Thrombosis: Yes Pre Stenosis: 100 % Pre intervention WAI flow: 0 PROCEDURE: Drug Eluting Stent with pre and post dilatation Post Stenosis: 0 % Post intervention WAI flow: 3 Lesion Devices: Cordis 6 Fr AL.75 100cm Guide Catheter Terumo .014 180cm Runthrough Extra Floppy straight [employer] [place] EMERGE MR 2.50x12 BALLOON Medtronic 2.75 x 34 IMMANUEL FRONTIER BELKYS [employer] [place] EMERGE MR 2.75x20 BALLOON [employer] NC EMERGE MR 3.00x12 BALLOON Echocardiogram from 11/15/2020: Interpretation Summary The estimated ejection fraction is 60 %. Normal diastology for age. Cardiac Catheterization from 12/29/2021: CONCLUSIONS [place] Multivessel CAD RCA: stents: patent RECOMMENDATIONS Risk factor modification Medical therapy Staged for FFR Cased discussed / reviewed with Dr. Abrams of Interventional Cardiology CORONARY ANGIOGRAPHY DOMINANCE: Right Dominant LEFT HEART ASSESSMENT Left Ventricular Ejection Fraction: Not assessed LEFT MAIN: proximal: smooth: 25% stenosis followed by mid mild luminal irregularities LEFT ANTERIOR DESCENDING ARTERY: PROX LAD: Mild luminal irregularities MID LAD: to distal: smaller caliber vessel appearing angiographically normal CIRCUMFLEX ARTERY: Angiographically normal RIGHT CORONARY ARTERY: Mild luminal irregularities MID RCA: Previously placed stent is patent DISTAL RCA: 50 % Stenosis RT PDA: Mid - Previously placed stent is patent RIGHT AV SEGMENT: proximal: 50 - 75 % Stenosis CONCLUSIONS FFR distal RCA 0.85 RECOMMENDATIONS Medical therapy Stress Test Report 12/02/21: Impression: 1. Technically adequate (percent predicted maximal heart rate greater than 85%) exercise tolerance test 2. Peak exercise ECG continued nonspecific ST segment abnormality with no significant change compared to baseline 3. There were no cardiac dysrhythmias pretest, during exercise, or recovery 4. Nuclear images pending Interpretation: Rest and stress SPECT Cardiolite nuclear imaging status post realignment, normalization, and attenuation correction, demonstrates the appearance of extracardiac/gastrointestinal tracer uptake near the inferior segments and at rest the appearance of relative uniform tracer uptake and myocardial perfusion appearing within normal limits. Status post-rest there is notation of diminished myocardial perfusion in the distal inferior and inferoapical segments.. There is end systolic thickening and brightening. The gated Cardiolite study demonstrates myocardial thickening and inward wall motion. The reported LVEF is 69%. Impression: 1. Rest and stress SPECT Cardiolite nuclear imaging demonstrate myocardial perfusion changes concerning for an area of stress-induced myocardial ischemia in portions of the distal inferior and inferoapical segments. 2. The gated Cardiolite study reports an LVEF of 69%. CT LUNG 06/10/23: NODULES: No suspicious nodules are seen. Emphysema: Hyperinflation. Emphysematous changes worse in the upper lobes. There is a 2.8 cm x 1.7 cm bulla in the anterior aspect of the left lower lobe. Endobronchial lesion: None Aorta: Atherosclerotic plaque formation. CORONARY ARTERIES: 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 calcification is seen. Heart: Myocardium unremarkable Pulmonary artery: Unremarkable Mediastinal nodes: Unremarkable Other chest and abdominal findings: IMPRESSION: Lung-RADS category 2 - Continue annual screening with LDCT in 12 months. Assessment and Plan Assessment and Plan (1) Presence of stent in coronary artery: Status: Chronic Plan: Patient has a history of coronary artery disease with stents to his RCA and right PDA. August 17, 2023 he had a very late stent thrombosis to the right PDA after stopping aspirin and Plavix for procedure. He does acknowledge occasional chest discomfort with exertion. His stress test from 12/06/2024 demonstrated mildly reduced perfusion of the inferior wall post test, suggestive of ischemia. Would like to proceed with a cardiac catheterization to further assess this. Depending on results, further recommendations will be made. Cardiac catheterization instructions were reviewed with patient. He verbalizes understanding. (2) Chest pain: Status: Resolved Plan: Patient does acknowledge chest pain with exertion. His stress test from 12/06/2024 demonstrated mildly reduced perfusion of the inferior wall post test, suggestive of ischemia. Would like to proceed with a cardiac catheterization to further assess this. Depending on results, further recommendations will be made. Cardiac catheterization instructions were reviewed with patient. He verbalizes understanding. (2) Chest pain:
--- NOTE | 2025-01-04 13:43 | RAD_ITS ---
PROCEDURE: CHEST PA AND LATERAL 01/04/2025 REASON FOR EXAM: CARDIAC CATH TECHNIQUE: Procedure Code: RADCXR Modality: DX Procedure: CHEST PA AND LATERAL COMPARISON: Chest x-ray study dated 12/22/[address] scan of the chest dated 06/10/2023 FINDINGS: Hardware: None Heart: The heart size is normal. Mediastinum: There are atherosclerotic calcifications of the thoracic aorta. Lungs: The lungs are hyperinflated with flattening of the hemidiaphragms compatible with COPD. This is a stable finding. Stable calcified granulomas are seen in both lungs. There is no atelectasis, consolidation, effusion, pneumothorax or pneumonic infiltrate. Bones: Degenerative changes are identified within the thoracic spine. RAD/Chest PA and Lateral IMPRESSION: No acute cardiopulmonary process is identified radiographically. Atherosclerotic calcifications of the aorta are noted. Reading Location: [id number]
[2025-01-04 13:54] LABS: Hematocrit 38.6 % (40-54); Hemoglobin 13.1 g/dL (13.0-16.5); Immature Granulocytes Count 0.020 X10^3/uL (0.0-0.0); Mean Corp Hgb Conc 33.9 g/dL (32-36); Mean Corpuscular Volume 94.8 fL (80-94); Mean Platelet Vol. 9.7 fl (6.2-12.0); NRBC Flagged by Analyzer 0 % (0-5); Platelet Count 268 K/mm3 (150-450); RBC Distribution Width CV 12.0 % (11.6-14.6); RBC Distribution Width SD 42.0 fl (35.1-43.9); Red Blood Count 4.07 M/mm3 (4.6-6.2); White Blood Count 7.6 K/mm3 (4.4-11.0)
[2025-01-04 15:09] LABS: Anion Gap 12 (5-15); BUN 18 mg/dL (4-19); BUN/Creat Ratio 17.4 RATIO (10-20); Calcium,Total 8.4 mg/dL (7.6-11.0); Carbon Dioxide 21.7 mmol/L (21.0-32.0); Chloride 104 mmol/L (98-108); Glucose 76 mg/dL (70-99); Potassium 4.4 mmol/L (3.3-5.1)
[2025-01-29 11:19] VITALS: BMI 27.2
--- OUTSIDE RECORDS SUMMARY | 2025-01-30 07:22 | XMS RPT_ITS | CCD ---
Author Organization [facility] Care Team Providers Care Coupon Clerk Name Role Phone Dr. David Jacobo Primary Care Provider Dr. David Jacobo Referring Provider 1([facility])[phone] Roof [employer], [employer]-Juwan Downs Attending Provider Dr. David Jacobo Primary Care Provider Dr. David Jacobo Referring Provider 1([facility])[phone] Dr. César Pichardo Attending Provider 1([facility])[phone] Dr. César Pichardo Referring Provider Dr. César Pichardo Other Provider Dr. David Jacobo Primary Care Provider [phone] David Jacobo Referring Provider 1([facility])[phone] Roof [employer], ROSEANN-Juwan Downs Attending Provider DAVID JACOBO MD Primary Care Physician DAVID JACOBO MD A Primary Care Unavailable ADDIE ONTIVEROS MD Attending Unavailable Dr. David Jacobo Primary Care Provider Dr. David Jacobo Referring Provider [phone] Dr. Lia Mohan Attending Provider Dr. Sav Abrams Attending Provider YOLETTE Washington Attending Provider Dr. Nydia Rivers Emergency Provider [phone] Dr. Eleno Quijano Attending Provider Unavailable Dr. Eleno Quijano Admit Provider Unavailable Dr. Eleno Quijano Other Provider Unavailable Dr. Cisco Lincoln Other Provider Dr. Dorene Rodriguez Attending Provider Dr. Dorene Rodriguez Other Provider Dr. David Myers Emergency Provider Dr. Conchita Ty Admit Provider Dr. Conchita Ty Other Provider Donnell MORENO, David A Primary Care Provider DAVID JACOBO A Primary Care Unavailable Donnell MORENO, Dr. Randle Primary Care Provider Donnell MORENO, Dr. Randle Attending Provider Donnell MORENO, Dr. Randle Referring Provider Conner WHITFIELD-CVi Attending Provider [phone] Donnell MORENO, Dr. Randle Primary Care Provider Donnell MORENO, Dr. Randle Referring Provider Conner [employer]-CVi Referring Provider [phone] Lucia LOPEZ, Dr. Randle Emergency Provider 1([facility])[phone] Conner [employer]-C, Vi Other Provider Jose Alberto MORENO, Dr. Ang Attending Provider Jacobo, David Primary Care Unavailable Conner [employer], Vi Attending Unavailable Jacobo, David Referring Unavailable Jacobo, David Primary Care Unavailable Jose Alberto, Sav Attending Unavailable Conner [employer], Vi Consulting Unavailable Jacobo, David Primary Care Unavailable Jose Alberto, Sav Attending Unavailable Jose Alberto, Sav Referring Unavailable Conner [employer], Vi Referring Unavailable Jacobo, David Primary Care Unavailable Prieto [employer], Vi Attending Unavailable Jacobo, David Primary Care Unavailable Jacobo, David Attending Unavailable Jacobo, David Referring Unavailable Jacobo, David Primary Care Unavailable Jose Alberto, Sav Attending Unavailable Jose Alberto, Sav Referring Unavailable Jacobo, David Referring Unavailable Jacobo, David Primary Care Unavailable Jacobo, David Attending Unavailable Jacobo, David Primary Care Unavailable Schwiger, David Attending Unavailable Prieto [employer], Vi Attending Unavailable Jacobo, David Primary Care Unavailable Jacobo, David Referring Unavailable Jacobo, David Primary Care Unavailable Prieto [employer], Vi Attending Unavailable Jacobo, David Primary Care Unavailable Prieto [employer], Vi Consulting Unavailable Jose Alberto, Sav Referring Unavailable Jose Alberto, Sav Attending Unavailable Sav Abrams Consulting Unavailable Vi Prieto NP Referring Unavailable David Jacobo Primary Care Unavailable Vi Prieto NP Consulting Unavailable Sav Abrams Attending Unavailable Allergies Allergy Classification Reported Allergen(s) Allergy Type Date of Onset Reaction(s) Facility (13 sources) Isosorbide Drug Allergy 3 Dizzy, lightheaded, short of breath [facility] (13 sources) Lisinopril Drug Allergy 3 dry persistent cough [facility] (3 sources) atorvastatin Drug Allergy 5 Myalgias [facility] (1 source) atorvastatin Drug Allergy 5 [facility] (1 source) Isosorbide Drug Allergy 5 [facility] (1 source) Lisinopril Drug Allergy 5 [facility] Medications Current Medications Medication Drug Class(es) Dates Sig (Normalized) Sig (Original) 8 hr acetaminophen 650 mg extended release oral tablet (3 sources) Start: 05-09-2024 Acetaminophen (Tylenol Arthritis Pain) 650 mg tablet extended release Active 1300 mg PO TWICE A DAY as needed for pain May 09, 2024 1:00am acetaminophen 325 mg / HYDROcodone bitartrate 5 mg oral tablet (2 sources) Opioid Agonist Start: 12-10-2024 take 1 tablet by mouth every six hours as needed for pain Hydrocodone-Acetaminop hen 5-325 mg tablet Active 1 {tbl} PO EVERY 6 HOURS NEEDED as needed for Pain 10 3 0 December 10, 2024 Phlebitis of superficial vein of upper extremity Phlebitis and thrombophlebitis of other sites apremilast 30 mg oral tablet (3 sources) Start: 11-02-2024 take 1 tablet by mouth twice daily Apremilast (Otezla) 30 mg tablet Active 30 mg PO TWICE A DAY November 02, 2024 12:00am Start: 11-02-2024 take 1 tablet by aishwarya th once daily Apremilast (Otezla) 30 mg tablet Active 30 mg PO daily November 02, 2024 12:00am cephalexin 500 mg oral capsule (2 sources) Cephalosporin Antibacterial Start: 12-10-2024 take 1 capsule by mouth every six hours Cephalexin 500 mg capsule Active 500 mg PO EVERY 6 HOURS 40 0 December 10, 2024 12:00am clobetasol propionate 0.0005 mg/mg topical ointment (9 sources) Corticosteroid Start: 12-10-2024 Clobetasol 0.0 5 % ointment Active 1 NMA TOPICAL TWICE A DAY December 10, 2024 12:00am Start: 08-14-2023 End: 12-10-2024 Clobetasol 0.05 % cream Disc ontinued 1 NMA TOPICAL DAILY as needed for KNEE IRRITATION August 14, 2023 12:00am December 10, 2024 8:06am diclofenac sodium 0.01 mg/mg topical gel (2 sources) Nonsteroidal Anti-inflammatory Drug Start: 12-10-2024 Diclofenac Sodium (Voltaren Arthritis Pain) 1 % gel Active 2 g TOPICAL NEEDED December 10, 2024 12:00am fluticasone propionate 0.05 mg/actuat metered dose nasal spray (2 sources) Corticosteroid Start: 12-12-2023 take 2 spray(s) by mouth once daily fluticasone (FLONASE) 50 mcg/actuation nasal spray Use 2 Sprays in each nostril once daily. Rinse mouth after use. 9.9 mL 12/12/2023 Active glucosamine sulfate 500 mg oral tablet (2 sources) Start: 12-10-2024 take 1 tablet by mouth twice daily at mealtime Glucosamine Sulfate (Glucosamine) 500 mg tablet Active 500 mg PO TWICE A DAY December 10, 2024 12:00am administer with meals hydroCHLOROthiazide 25 mg / triamterene 37.5 mg oral capsule (2 sources) Potassium-sparing Diuretic, Thiazide Diuretic Start: 01-05-2012 take 1 capsule by mouth once daily triamterene-hyd rochlorothiazid e 37.5-25 mg per capsule Indications: Vertigo , Meniere's disease Take 1 capsule by mouth once daily. 30 capsule 0 01/05/2012 Active naproxen sodium 220 mg oral capsule (3 sources) Nonsteroidal Anti-inflammatory Drug Start: 11-02-2024 take 1 capsule by mouth every twelve hours as needed for pain Naproxen Sodium (Aleve) 220 mg capsule Active 220 mg PO Q12H as needed for pain November 02, 2024 12:00am rosuvastatin calcium 10 mg oral tablet (3 sources) HMG-CoA Reductase Inhibitor Start: 05-21-2024 take 1 tablet by mouth at bedtime Rosuvastatin 10 mg tablet Active 10 mg PO AT BEDTIME 90 3 May 21, 2024 1:00am Completed/Discontinued Medications Medication Drug Class(es) Dates Sig (Normalized) Sig (Original) 0.4 ml adalimumab 100 mg/ml auto-injector (17 sources) Tumor Necrosis Factor Bambi Start: 11-15-2020 End: 12-02-2020 Adalimumab (Humira(Cf) Pen) 40 mg/0.4 mL pen injector kit Discontinued 40 mg SC ONE TIME November 15, 2020 12:00am December 02, 2020 12:14pm amLODIPine 5 mg oral tablet (7 sources) Dihydropyridine Calcium Channel Bambi Start: 08-02-2023 End: 09-20-2023 take 1 tablet by mouth once daily Amlodipine 5 mg tablet Discontinued 5 mg PO DAILY 90 August 02, 2023 12:00am September 20, 2023 2:30pm amoxicillin 875 mg / clavulanate 125 mg oral tablet (6 sources) Penicillin-class Antibacterial Start: 08-15-2023 End: 09-20-2023 Amoxicillin-Pot Clavulanate 875-125 mg tablet Discontinued 1 {tbl} PO TWICE A DAY 24 August 15, 2023 12:00am September 20, 2023 2:00pm Start: 08-15-2023 take 1 tablet by aishwarya th twice daily Amoxicillin-Pot Clavulanate Active 1 TABLET PO TWICE A DAY August 15, 2023 12:00am aspirin 81 mg delayed release oral tablet (20 sources) Platelet Aggregation Inhibitor, Nonsteroidal Anti-inflammatory Drug Start: 11-17-2020 End: 11-30-2024 take 1 tablet by mouth once daily Aspirin (Adult Aspirin Regimen) 81 mg tablet,delayed release (DR/EC) Discontinued 81 mg PO DAILY 90 3 December 09, 2023 11:25am November 30, 2024 11:46am atorvastatin 10 mg oral tablet (20 sources) HMG-CoA Reductase Inhibitor Start: 08-02-2023 End: 05-21-2024 take 1 tablet by mouth at bedtime Atorvastatin 10 mg tablet Discontinued 10 mg PO AT BEDTIME 90 3 December 09, 2023 11:26am May 21, 2024 [...] 02, 2020 2:01pm July 10, 2021 8:25am clopidogrel 75 mg oral tablet (20 sources) P2Y12 Platelet Inhibitor Start: 02-01-2022 End: 11-30-2024 take 1 tablet by mouth once daily Clopidogrel 75 mg tablet Discontinued 75 mg PO DAILY 90 December 09, 2023 11:26am November 30, 2024 11:46am Start: 02-24-2021 End: 06-22-2021 take 1 tablet by mouth once daily Clopidogrel (Plavix) 75 mg tablet Discontinued 75 mg PO daily 93 February 24, 2021 1:00am June 22, 2021 4:59pm 24 hr isosorbide mononitrate 30 mg extended [...] hr Discontinued 30 mg PO DAILY 90 January 22, 2021 12:16pm November 18, 2021 2:58pm On Hold: ? Migraine 2/22/22 lisinopril 20 mg oral tablet (20 sources) [...] 5:34pm losartan potassium 50 mg oral tablet (13 sources) Angiotensin 2 Receptor Bambi Start: 02-01-2022 End: 12-10-2022 take 1 tablet by mouth once daily Losartan 50 mg tablet Discontinued 50 mg PO DAILY 10 03February 01, 2022 12:00am December 10, 2022 2:29pm meclizine hydrochloride 25 mg oral tablet (17 sources) Antiemetic Start: 05-29-2021 End: 11-18-2021 take 1 tablet by mouth four times daily as needed for dizziness Meclizine 25 MG tablet Discontinued 25 mg PO 4 TIMES DAILY NEEDED as needed for Dizziness May 29, 2021 1:00am November 18, 2021 2:57pm ondansetron 4 mg disintegrating oral tablet (17 sources) Serotonin-3 Receptor Antagonist Start: 06-02-2021 End: [...] penicillin v potassium 500 mg oral tablet (7 sources) Start: 08-13-2023 End: 08-15-2023 take 1 [...] ranolazine 500 mg extended release oral tablet (13 sources) Anti-anginal Start: 01-01-2022 End: 06-08-2022 take 1 tablet by mouth twice daily Ranolazine (Ranexa) 500 mg tablet extended release 12 hr Discontinued 500 mg PO TWICE A DAY 60 January 01, 2022 12:00am June 08, 2022 5:25pm SUMAtriptan 50 mg oral tablet (17 sources) Serotonin-1b and Serotonin-1d Receptor Agonist Start: 06-02-2021 End: 11-18-2021 take 1 tablet by mouth once as needed Sumatriptan Succinate 50 mg tablet Discontinued 50 mg PO ONCE as needed June 02, 2021 1:00am November 18, 2021 2:58pm telmisartan 80 mg oral tablet (20 sources) Angiotensin 2 Receptor Bambi Start: 01-04-2023 End: 11-30-2024 take 1 tablet by mouth once daily Telmisartan 80 mg tablet Discontinued 80 mg PO DAILY 90 3 December 09, 2023 11:26am November 30, 2024 11:46am Start: 12-10-2022 End: 01-04-2023 take 80 mg by mouth once daily Telmisartan Discontinue d 80 MG PO DAILY December 10, 2022 3:10pm January 04, 2023 8:55am Start: 12-10-2022 End: 01-04-2023 take 1 tablet by mouth once daily Telmisartan 40 mg tablet Discontinued 80 mg PO DAILY December 10, 2022 3:10pm January 04, 2023 8:55am ticagrelor 90 mg oral tablet (20 sources) [...] Da te Episodic/Chronic Acute and chronic tonsillitis (12 sources) Peritonsillar abscess; Translations: [Peritonsillar abscess] 08-14-2023 Episodic Acute myocardial infarction (7 sources) Acute ST segment elevation myocardial infarction; Translations: [ST elevation (STEMI) myocardial infarction of unspecified site] Onset: 4 08-17-2023 Chronic Conditions associated with dizziness or vertigo (18 sources) Vertigo; Translations: [Dizziness and giddiness] 06-06-2021 Episodic Coronary atherosclerosis and other heart disease (20 sources) Coronary atherosclerosis; Translations: [Atherosclerotic heart disease of [place] coronary artery without angina pectoris] Onset: 5 Chronic Coronary atherosclerosis and other heart disease (20 sources) Stented coronary artery; Translations: [Presence of coronary angioplasty implant and graft] Onset: 1 Episodic Comment on above: PTCA/BELKYS Mid RPDA us ing [place] 2.75x34 mm 5/8/24 Disorders of lipid metabolism (20 sources) Hyperlipidemia; Translations: [Hyperlipidemia, unspecified] Chronic Essential hypertension (20 sources) Essential hypertension; Translations: [Essential (primary) hypertension] Onset: Chronic Nonmalignant breast conditions (15 sources) Breast lump; Translations: [Unspecified lump in the right breast, unspecified quadrant] 06-17-2023 Episodic Nonspecific chest pain (20 sources) Chest pain; Translations: [Chest pain, unspecified] Onset: 5 11-25-2020 Episodic Other connective tissue disease (17 sources) Muscle pain; Translations: [Myalgia, unspecified site] 06-02-2021 Episodic Other connective tissue disease (3 sources) Myalgia, unspecified site; Translations: [Myalgia and myositis, unspecified] Episodic Other lower respiratory disease (15 sources) Dyspnea; Translations: [Shortness of breath] 12-04-2021 Episodic Other lower respiratory disease (1 source) Cough; Translations: [Acute cough] 12-12-2023 Episodic Other non-traumatic joint disorders (1 source) Pain in right elbow; Translations: [Pain in right elbow] Onset: Episodic Other screening for suspected conditions (not mental disorders or infectious disease) (17 sources) Cardiovascular stress test abnormal; Translations: [Abnormal result of other cardiovascular function study] Onset: 5 12-04-2021 Episodic Other upper respiratory infections (12 sources) Streptococcal sore throat; Translations: [Streptococcal pharyngitis] 08-13-2023 Episodic Phlebitis; thrombophlebitis and thromboembolism (2 sources) Phlebitis; Translations: [Phlebitis and thrombophlebitis of other sites] 12-10-2024 Episodic Residual codes; unclassified (17 sources) Tobacco user; Translations: [Tobacco use] 12-02-2020 Episodic Residual codes; unclassified (3 sources) Bilateral lower limb edema; Translations: [Localized edema] 09-20-2023 Episodic Spondylosis; intervertebral disc disorders; other back problems (2 sources) Neck pain; Translations: [Cervicalgia] Episodic Viral infection (17 sources) Herpes zoster; Translations: [Zoster without complications] 09-15-2015 Episodic Past or Other Problems Problem Classification Problem Date Documented Date Episodic/Chronic Residual codes; unclassified (14 sources) History of cardiac catheterization; Translations: [Other [...] Test Name Value Interpretation Reference Range Facility Basic Metabolic Profile (BMP )on 01-04-2025 BUN/CRE 17.4 RATIO Normal 10-20 [facility] Comment on above: Performed By: #### L 100.0100, L500.2500 #### [facility] [address] [place], [address] Calcium [Mass/Vol] 8.4 mg/dL Normal 7.6-11.0 [facility] Comment on above: Performed By: #### L 100.0100, L500.2500 #### [facility] [address] [place], [address] Chloride [Moles/Vol] 104 mmol/L Normal 98-108 [facility] Comment on above: Performed By: #### L 100.0100, L500.2500 #### [facility] [address] [place], [address] CO2 [Moles/Vol] 21.7 mmol/L Normal 21.0-32.0 [facility] Comment on above: Performed By: #### L 100.0100, L500.2500 #### [facility] [address] [place], [address] Creatinine [Mass/Vol] 1.05 mg/dL Normal 0.70-1.20 [facility] Comment on above: Performed By: #### L 100.0100, L500.2500 #### [facility] [address] [place], [address] GAP 12 Normal 5-15 [facility] Comment on above: Performed By: #### L 100.0100, L500.2500 #### [facility] [address] [place], [address] GFR/1.73 sq M.predicted among non-blacks MDRD (S/P/Bld) [Vol rate/Area] 79 mL/min/{1.73_m2} Normal >60 [facility] Comment on above: Result Comment: mL/m in/1.73m2 CKD-EPI Creatinine Equation (2020) Performed By: #### L 100.0100, L500.2500 #### [facility] [address] [place], [address] Glucose [Mass/Vol] 76 mg/dL Normal 70-99 [facility] Comment on above: Performed By: #### L 100.0100, L500.2500 #### [facility] [address] [place], [address] Potassium [Moles/Vol] 4.4 mmol/L Normal 3.3-5.1 [facility] Comment on above: Performed By: #### L 100.0100, L500.2500 #### [facility] [address] [place], [address] Sodium [Moles/Vol] 138 mmol/L Normal 133-145 [facility] Comment on above: Performed By: #### L 100.0100, L500.2500 #### [facility] [address] [place], [address] Urea nitrogen [Mass/Vol] 18 mg/dL Normal 4-19 [facility] Comment on above: Performed By: #### L 100.0100, L500.2500 #### [facility] [address] [place], [address] CBC W/Diff, Automatedon 12-11 Absolute Lymph 1.95 X10 3/uL Normal 0.83-4.51 [facility] Comment on above: Performed By: #### L 100.0100, L500.2500 #### [facility] [address] [place], [address] Absolute Neut 4.6 X10 3/uL Normal 2.0-7.7 [facility] Comment on above: Performed By: #### L 100.0100, L500.2500 #### [facility] [address] [place], [address] Basophils/100 WBC (Bld) 0.4 % Normal 0-1 [facility] Comment on above: Performed By: #### L 100.0100, L500.2500 #### [facility] [address] [place], [address] Eosinophils/100 WBC (Bld) 0.8 % Normal 0-5 [facility] Comment on above: Performed By: #### L 100.0100, L500.2500 #### [facility] [address] [place], [address] Erythrocyte distribution width (RBC) [Ratio] 12.0 % Normal 11.6-14.6 [facility] Comment on above: Performed By: #### L 100.0100, L500.2500 #### [facility] [address] [place], [address] Hematocrit (Bld) [Volume fraction] 38.6 % Low 40-54 [facility] Comment on above: Performed By: #### L 100.0100, L500.2500 #### [facility] [address] [place], [address] Hemoglobin (Bld) [Mass/Vol] 13.1 g/dL Normal 13.0-16.5 [facility] Comment on above: Performed By: #### L 100.0100, L500.2500 #### [facility] [address] [place], [address] IG% 0.300 Normal 0.0-0.9 [facility] Comment on above: Result Comment: IG% - Immature Granulocytes (promyelocytes, myelocytes and metamyelocytes) > 1% indicates that a LEFT SHIFT is Present. Performed By: #### L 100.0100, L500.2500 #### [facility] [address] [place], [address] Lymphocytes/100 WBC (Bld) 25.6 % Normal 19-41 [facility] Comment on above: Performed By: #### L 100.0100, L500.2500 #### [facility] [address] [place], [address] MCH (RBC) [Entitic mass] 32.2 pg High 27.0-32.0 [facility] Comment on above: Performed By: #### L 100.0100, L500.2500 #### [facility] [address] [place], [address] MCHC (RBC) [Mass/Vol] 33.9 g/dL Normal 32-36 [facility] Comment on above: Performed By: #### L 100.0100, L500.2500 #### [facility] [address] [place], [address] MCV (RBC) [Entitic vol] 94.8 fL High 80-94 [facility] Comment on above: Performed By: #### L 100.0100, L500.2500 #### [facility] [address] [place], [address] Monocytes/100 WBC (Bld) 12.0 % High 0-10 [facility] Comment on above: Performed By: #### L 100.0100, L500.2500 #### [facility] [address] [place], [address] Neutrophils/100 WBC (Bld) 60.9 % Normal 47-70 [facility] Comment on above: Performed By: #### L 100.0100, L500.2500 #### [facility] [address] [place], [address] Nucleated RBC (Bld) [#/Vol] 0 10*3/uL Normal 0-5 [facility] Comment on above: Performed By: #### L 100.0100, L500.2500 #### [facility] [address] [place], [address] Platelet mean volume (Bld) [Entitic vol] 9.7 fL Normal 6.2-12.0 [facility] Comment on above: Performed By: #### L 100.0100, L500.2500 #### [facility] [address] [place], [address] Platelets (Bld) [#/Vol] 268 10*3/uL Normal 150-450 [facility] Comment on above: Performed By: #### L 100.0100, L500.2500 #### [facility] [address] [place], [address] RBC (Bld) [#/Vol] 4.07 10*6/uL Low 4.6-6.2 [facility] Comment on above: Performed By: #### L 100.0100, L500.2500 #### [facility] [address] [place], [address] RDW SD 42.0 fl Normal 35.1-43.9 [facility] Comment on above: Performed By: #### L 100.0100, L500.2500 #### [facility] [address] [place], [address] WBC (Bld) [#/Vol] 7.6 10*3/uL Normal 4.4-11.0 [facility] Comment on above: Performed By: #### L 100.0100, L500.2500 #### [facility] [address] [place], [place], [address] Chest PA and Lateralon 01-04 Chest PA and Lateral [facility] [address] [place] [address] Chest PA and Lateral MR#: [id number] Acct: [id number] Name: ALLI KERR Rep #: [id number] : 1960 M 64 From: Nga Walker PCP: Dr. David Jacobo MD Status: PRE [facility] Study: Chest PA and Lateral Date of Exam: 01/04/25 Exam# [id number] Ordering Dr: Vi Prieto [employer]- C PROCEDURE: CHEST PA AND LATERAL 01/04/2025 REASON FOR EXAM: CARDIAC CATH TECHNIQUE: Procedure Code: RADCXR Modality: DX Procedure: CHEST PA AND LATERAL COMPARISON: Chest x-ray study dated 12/22/[address] scan of the chest dated 06/10/2023 FINDINGS: Hardware: None Heart: The heart size is normal. Mediastinum: There are atherosclerotic calcifications of the thoracic aorta. Lungs: The lungs are hyperinflated with flattening of the hemidiaphragms compatible with COPD. This is a stable finding. Stable calcified granulomas are seen in both lungs. There is no atelectasis, consolidation, effusion, pneumothorax or pneumonic infiltrate. Bones: Degenerative changes are identified within the thoracic spine. RAD/Chest PA and Lateral IMPRESSION: No acute cardiopulmonary process is identified radiographically. Atherosclerotic calcifications of the aorta are noted. Reading Location: [id number] CC: [facility] [employer] [employer] UNIVERSITYIsabel Prieto; Dr. David Jacobo MD Neurodiagnostic Tech: Signed Normal [facility] Cardiovascular stress test r eportOrdered By: Sav Abrams on 12-11-2024 Study report [facility] [address] [place] [address] MR#: [id number] Acct: [id number] Name: ALLI KERR Rep #: [id number] : 1960 64 From: Sav Abrams MD Primary Care: Dr. David Jacobo MD Status: REG CLI Referring Dr: Vi Prieto NP [employer]-C Sex: M C Stress Test Report Date: 12/06/2024 Procedure: Exercise tolerance test/imaging study Indications: Chest pain/CAD Consent: Per the patient Procedure: The patient exercised on a Nikolas protocol for 7 minutes and 45 seconds achievinga peak heart rate of 116 bpm (74% predicted maximal heart rate) with a peak blood pressure 182/62 mmHg and a peak MET capacity of 10.1 METs. The baseline ECG demonstrated sinus rhythm with inferior ST changes. The peak exercise ECG was nondiagnostic because of baseline abnormality. There were no cardiac dysrhythmias pretest, during exercise, or recovery. The functional capacity was considered good for age. There was no complaint of chest discomfort during exercise or recovery. The examination was discontinued secondary to dyspnea and hip discomfort. The patient was injected with 11.3 mCi of technetium 99m Cardiolite and subsequently rest SPECT Cardiolite nuclear imaging was obtained in the horizontal long, vertical long, and short axis views. Post-exercise, the patientwas injected with 34.0 mCi of technetium 99m Cardiolite and subsequently stress SPECT Cardiolite nuclear imaging was obtained in the horizontal long, vertical long, and short axis views. A gated Cardiolite study at peak stress was obtained. Rest and stress SPECT Cardiolite nuclear imaging status post realignment, normalization, and attenuation correction, demonstrates mildly reduced perfusionof the inferior wall post exercise stress. This is suggestive of mild ischemia of the inferior wall. There is end systolic thickening and brightening. The gated Cardiolite study demonstrates myocardial thickening and inward wall motion. The reported LVEF is 70%. Impression: 1. Technically adequate exercise tolerance test 2. Peak exercise ECG nondiagnostic 3. There were no cardiac dysrhythmias pretest, during exercise, or recovery 4. Rest and stress SPECT Cardiolite nuclear imaging demonstrate mildly reduced perfusion of the inferior wall poststress, suggestive of ischemia. 5. The gated Cardiolite study reports an LVEF of 70%. This note was generated with FreeMarketsation software. It may contain incorrectwords, spelling, and punctuation that were not noted in checking the note beforesigning. 12/11/24 1557 Date _ Sav Abrams MD CC: [employer] Vi Prieto; Dr. David Jacobo MD ~ Date Dictated: 12/11/241552 Date Transcribed: 12/11/241552 Neurodiagnostic Tech: NATALY Herman [facility] Work Phone: Stress Reporton 12-11-2024 Stress Report [facility] [address] [place] [id number] MR#: [id number] Acct: [id number] Name: ALLI KERR Rep #: [id number] : 1960 64 From: Sav Abrams MD Primary Care: Dr. David Jacobo MD Status: R EG CLI Referring Dr: Vi Prieto NP [employer] Sex: M C Stress Test Report Date: 12/06/2024 Procedure: Exercise tolerance test/imaging study Indications: Chest pain/CAD Consent: Per the patient Procedure: The patient exercised on a Nikolas protocol for 7 minutes and 45 seconds achieving a peak heart rate of 116 bpm (74% predicted maximal heart rate) with a peak blood pressure 182/62 mmHg and a peak MET capacity of 10.1 METs. The baseline ECG demonstrated sinus rhythm with inferior ST changes. The peak exercise ECG was nondiagnostic because of baseline abnormality. There were no cardiac dysrhythmias pretest, during exercise, or recovery. The functional capacity was considered good for age. There was no complaint of chest discomfort during exercise or recovery. The examination was discontinued secondary to dyspnea and hip discomfort. The patient was injected with 11.3 mCi of technetium 99m Cardiolite and subsequently rest SPECT Cardiolite nuclear imaging was obtained in the horizontal long, vertical long, and short axis views. Post-exercise, the patient was injected with 34.0 mCi of technetium 99m Cardiolite and subsequently stress SPECT Cardiolite nuclear imaging was obtained in the horizontal long, vertical long, and short axis views. A gated Cardiolite study at peak stress was obtained. Rest and stress SPECT Cardiolite nuclear imaging status post realignment, normalization, and attenuation correction, demonstrates mildly reduced perfusion of the inferior wall post exercise stress. This is suggestive of mild ischemia of the inferior wall. There is end systolic thickening and brightening. The gated Cardiolite study demonstrates myocardial thickening and inward wall motion. The reported LVEF is 70%. Impression: 1. Technically adequate exercise tolerance test 2. Peak exercise ECG nondiagnostic 3. There were no cardiac dysrhythmias pretest, during exercise, or recovery 4. Rest and stress SPECT Cardiolite nuclear imaging demonstrate mildly reduced perfusion of the inferior wall poststress, suggestive of ischemia. 5. The gated Cardiolite study reports an LVEF of 70%. This note was generated with FreeMarkets[employer] software. It may contain incorrect words, spelling, and punctuation that were not noted in checking the note before signing. 12/11/241556 Date Sav Abrams MD CC: YOLETTE Prieto; Dr. David Jacobo MD Date Dictated: 12/11/241552 Date Transcribed: 12/11/241552 Neurodiagnostic Tech: NATALY Signed Normal [facility] Absolute lymphocyte countOrd ered By: David Myers on 12-10-2024 Lymphocytes Auto (Unsp spec) [#/Vol] 1.72 10*3/uL 0.83-4.51 [facility] Absolute neutrophil countOrd ered By: David Myers on 12-10-2024 Neutrophils (Bld) [#/Vol] 9.1 10*3/uL High 2.0-7.7 [facility] Anion gap in Serum or Plasma Ordered By: David Myers on 12-10-2024 Anion gap [Moles/Vol] 11 mmol/L 5-15 [facility] Automated lymphocyte count a s percentage of total leukocytesOrdered By: David Myers on 12-10-2024 Lymphocytes/100 WBC Auto (Unsp spec) 13.9 % Low 19-41 [facility] BUN/creatinine ratioOrdered By: David Myers on 12-10-2024 Urea nitrogen/Creatinine [Mass ratio] 17.1 mg/mg - [facility] Basic Metabolic Profile (BMP )on 12-10-2024 BUN/CRE 17.1 RATIO Normal - [facility] Comment on above: Performed By: #### L 100.0100, L500.2500 #### [facility] [address] [place], [address] Calcium [Mass/Vol] 9.4 mg/dL Normal 7.6-11.0 [facility] Comment on above: Performed By: #### L 100.0100, L500.2500 #### [facility] [address] [place], [address] Chloride [Moles/Vol] 102 mmol/L Normal 98-108 [facility] Comment on above: Performed By: #### L 100.0100, L500.2500 #### [facility] [address] [place], [address] CO2 [Moles/Vol] 22.8 mmol/L Normal 21.0-32.0 [facility] Comment on above: Performed By: #### L 100.0100, L500.2500 #### [facility] [address] [place], [address] Creatinine [Mass/Vol] 1.06 mg/dL Normal 0.70-1.20 [facility] Comment on above: Performed By: #### L 100.0100, L500.2500 #### [facility] [address] [place], [address] ECRCL 72.69 ml/min Normal 50-250 [facility] Comment on above: Performed By: #### L 100.0100, L500.2500 #### [facility] [address] [place], [address] GAP 11 Normal 5-15 [facility] Comment on above: Performed By: #### L 100.0100, L500.2500 #### [facility] [address] [place], [address] GFR/1.73 sq M.predicted among non-blacks MDRD (S/P/Bld) [Vol rate/Area] 78 mL/min/{1.73_m2} Normal >60 [facility] Comment on above: Result Comment: mL/m in/1.73m2 CKD-EPI Creatinine Equation (2020) Performed By: #### L 100.0100, L500.2500 #### [facility] [address] [place], [address] Glucose [Mass/Vol] 122 mg/dL High 70-99 [facility] Comment on above: Performed By: #### L 100.0100, L500.2500 #### [facility] [address] [place], [address] Potassium [Moles/Vol] 4.9 mmol/L Normal 3.3-5.1 [facility] Comment on above: Performed By: #### L 100.0100, L500.2500 #### [facility] [address] [place], [address] Sodium [Moles/Vol] 136 mmol/L Normal 133-145 [facility] Comment on above: Performed By: #### L 100.0100, L500.2500 #### [facility] [address] [place], [address] Urea nitrogen [Mass/Vol] 18 mg/dL Normal 4-19 [facility] Comment on above: Performed By: #### L 100.0100, L500.2500 #### [facility] [address] [place], [address] Basophil percentageOrdered B y: David Myers on 12-10-2024 Basophils/100 WBC (Bld) 0.2 % 0-1 [facility] CBC W/Diff, Automatedon 09-0 1-2024 Absolute Lymph 1.72 X10 3/uL Normal 0.83-4.51 [facility] Comment on above: Performed By: #### L 100.0100, L500.2500 #### [facility] [address] [place], [address] Absolute Neut 9.1 X10 3/uL High 2.0-7.7 [facility] Comment on above: Performed By: #### L 100.0100, L500.2500 #### [facility] [address] [place], [address] Basophils/100 WBC (Bld) 0.2 % Normal 0-1 [facility] Comment on above: Performed By: #### L 100.0100, L500.2500 #### [facility] [address] [place], [address] Eosinophils/100 WBC (Bld) 0.5 % Normal 0-5 [facility] Comment on above: Performed By: #### L 100.0100, L500.2500 #### [facility] [address] [place], [address] Erythrocyte distribution width (RBC) [Ratio] 12.1 % Normal 11.6-14.6 [facility] Comment on above: Performed By: #### L 100.0100, L500.2500 #### [facility] [address] [place], [address] Hematocrit (Bld) [Volume fraction] 40.9 % Normal 40-54 [facility] Comment on above: Performed By: #### L 100.0100, L500.2500 #### [facility] [address] [place], [address] Hemoglobin (Bld) [Mass/Vol] 13.8 g/dL Normal 13.0-16.5 [facility] Comment on above: Performed By: #### L 100.0100, L500.2500 #### [facility] [address] [place], [address] IG% 0.500 Normal 0.0-0.9 [facility] Comment on above: Result Comment: IG% - Immature Granulocytes (promyelocytes, myelocytes and metamyelocytes) > 1% indicates that a LEFT SHIFT is Present. Performed By: #### L 100.0100, L500.2500 #### [facility] [address] [place], [address] Lymphocytes/100 WBC (Bld) 13.9 % Low 19-41 [facility] Comment on above: Performed By: #### L 100.0100, L500.2500 #### [facility] [address] [place], [address] MCH (RBC) [Entitic mass] 32.2 pg High 27.0-32.0 [facility] Comment on above: Performed By: #### L 100.0100, L500.2500 #### [facility] [address] [place], [address] MCHC (RBC) [Mass/Vol] 33.7 g/dL Normal 32-36 [facility] Comment on above: Performed By: #### L 100.0100, L500.2500 #### [facility] [address] [place], [address] MCV (RBC) [Entitic vol] 95.6 fL High 80-94 [facility] Comment on above: Performed By: #### L 100.0100, L500.2500 #### [facility] [address] [place], [address] Monocytes/100 WBC (Bld) 11.1 % High 0-10 [facility] Comment on above: Performed By: #### L 100.0100, L500.2500 #### [facility] [address] [place], [address] Neutrophils/100 WBC (Bld) 73.8 % High 47-70 [facility] Comment on above: Performed By: #### L 100.0100, L500.2500 #### [facility] [address] [place], [address] Nucleated RBC (Bld) [#/Vol] 0 10*3/uL Normal 0-5 [facility] Comment on above: Performed By: #### L 100.0100, L500.2500 #### [facility] [address] [place], [address] Platelet mean volume (Bld) [Entitic vol] 9.5 fL Normal 6.2-12.0 [facility] Comment on above: Performed By: #### L 100.0100, L500.2500 #### [facility] [address] [place], [address] Platelets (Bld) [#/Vol] 270 10*3/uL Normal 150-450 [facility] Comment on above: Performed By: #### L 100.0100, L500.2500 #### [facility] [address] [place], [address] RBC (Bld) [#/Vol] 4.28 10*6/uL Low 4.6-6.2 [facility] Comment on above: Performed By: #### L 100.0100, L500.2500 #### [facility] [address] [place], [address] RDW SD 41.8 fl Normal 35.1-43.9 [facility] Comment on above: Performed By: #### L 100.0100, L500.2500 #### [facility] [address] [place], [address] WBC (Bld) [#/Vol] 12.4 10*3/uL High 4.4-11.0 [facility] Comment on above: Performed By: #### L 100.0100, L500.2500 #### [facility] [address] [place], [address] Carbon dioxide, total [Moles /volume] in Central venous bloodOrdered By: David Myers on 12-10-2024 CO2 [Moles/Vol] 22.8 mmol/L 21.0-32.0 [facility] Chloride assayOrdered By: Italo Myers on 12-10-2024 Chloride [Moles/Vol] 102 mmol/L 98-108 [facility] Elbow min 3 Viewson 12-11-19 Elbow min 3 Views [facility] Imaging Services [address] [place], [place] [address] Elbow min 3 Views MR#: [id number] Acct: [id number] Name: ALLI KERR Rep #: [id number] : 1960 M 64 From: Brady Wilkes MD PCP: Dr. David Jacobo MD Status: [facility] ER Study: Elbow min 3 Views Date of Exam: 12/10/24 Exam# [id number] Ordering Dr: David Myers DO PROCEDURE: ELBOW MIN 3 VIEWS 12/10/2024 REASON FOR EXAM: INJURY/PAIN TECHNIQUE: Procedure Code: RADEL Modality: DX Procedure: ELBOW MIN 3 VIEWS Laterality: Right COMPARISON: None FINDINGS: Bones: An AP and a true lateral were not provided. No definite fracture seen. Joints: Degenerative changes radiocapitellar, humeral ulnar and proximal radioulnar joints. Soft tissues: Soft tissues are unremarkable. RAD/Elbow min 3 Views IMPRESSION: Limited by positioning. Grossly, no acute abnormality. Degenerative changes. Reading Location: [id number] CC: Dr. David Myers DO; Dr. David Jacobo MD Neurodiagnostic Tech: Signed Normal [facility] Emergency Department Summary on 12-10-2024 Emergency Department Summary [facility] Medical Records Department [address] [place] [address] Emergency Department Summary 12/10/24 MR#: [id number] Acct: [id number] Name: ALLI KERR Rep #: [id number] : 1960 64 From: David Myers DO PCP: Dr. David Jacobo MD Status:DEP ER Location: ED HPI History of Present Illness HPI Narrative: Patient presents with pain and swelling to his right elbow that has been getting worse over the past 4 days. Patient states he had a stress test 3 days ago and had 2 attempts of an IV in his right antecubital area. Patient states that since that time he has noticed increased pain and swelling in his elbow. Patient denies any other trauma or injury. Patient states it is worse with any movement. Patient describes it as aching and burning. Patient states it is better with rest and in certain positions. Patient admits to some tingling into his hand. Patient denies any fevers or chills. Patient denies any chest pain or shortness of breath. Chief Complaint: Upper Extremity Injury Informant: patient Onset/Context/Timing Onset: Days (4) Context: Gradual Onset Timing: Continuous Quality of Pain: Aching and Burning Location: Right elbow Worsened by: Movement Relieved by: Certain positions Associated Symptoms Associated Symptoms: Positive for Parasthesia; Negative for Weakness or Loss of Funtion PFSH [facility] Medical History Acute ST elevation myocardial infarction (STEMI) ( 08/17/23) Strep pharyngitis Abscess, peritonsillar Dyslipidemia 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 disease Breast mass, right History of left heart catheterization (LHC) ( 12/29/21) SOB (shortness of breath) Abnormal stress test Angina pectoris HLD (hyperlipidemia) Myalgia Tobacco abuse Essential hypertension Presence of stent in coronary artery ( 11/15/20) Atherosclerotic heart disease of [place] coronary artery without angina pectoris STEMI (ST elevation myocardial infarction) Psoriasis Smoker Psoriatic arthritis Home Medications ???Medication ???Instructions ???Recorded ???Last Taken ???Type acetaminophen 650 mg 1,300 mg PO BID PRN pain 05/09/24 12/09/24 History tablet,extended release (Tylenol Arthritis Pain) rosuvastatin 10 mg tablet 10 mg PO QHS #90 tabs 05/21/24 Rx apremilast 30 mg tablet (Otezla) 30 mg PO BID 11/02/24 12/10/24 His tory naproxen sodium 220 mg capsule 220 mg PO Q12H PRN pain 11/02/24 U nknown History (Aleve) aspirin 81 mg tablet,delayed 81 mg PO DAILY #90 tabs 11/30/24 0 12/09/24 Rx release (Adult Aspirin Regimen) clopidogrel 75 mg tablet 75 mg PO DAILY #90 tabs 11/30/24 0 12/09/24 Rx telmisartan 80 mg tablet 80 mg PO DAILY #90 tabs 11/30/24 0 12/09/24 Rx cephalexin 500 mg capsule 500 mg PO Q6 #40 CAPSULES 12/10/24 Unknown Rx clobetasol 0.05 % topical ointment 1 applic topical BID 12/10/24 Un known History diclofenac sodium 1 % topical gel 2 g topical PRN 12/10/24 12/09/24 History (Voltaren Arthritis Pain) glucosamine sulfate 500 mg tablet 500 mg PO BID 12/10/24 12/08/24 H istory (Glucosamine) hydrocodone-acetaminophen 5-325mg 1 tab PO Q6H PRN PRN Pain 3 days 12/10/24 Unknown Rx 5mg-325mg #10 TABLETS Allergy/AdvReac Type Severity Reaction Status Date / Time isosorbide AdvReac Intermediate Dizzy, Verified 12/10/24 07:58 lightheaded, short of breath lisinopril AdvReac Intermediate dry Verified 12/10/24 07:58 persistent cough atorvastatin AdvReac Mild Myalgias Verified 12/10/24 07:58 Family History Mother Thyroid disorder Surgical History Presence of stent of CABG ( 08/17/23) History of coronary artery stent placement Presence of coronary angioplasty implant and graft ( 11/15/20) Social History Smoking Status: Former smoker Tobacco: How many years used: 42 how long ago did patient quit smokin months alcohol intake: current details: occassional substance use type: does not use caffeine: Yes Type: coffee Number of servings: 1 ROS ROS ED Constitutional Constitutional ED: Denies chills or fever(s) Eyes Eyes: Denies blurry vision or change in vision ENT ENT ED: Denies rhinorrhea or sore throat Cardiovascular Cardiovascular: Denies chest pain or palpitations Respiratory/Chest Respiratory/Chest: Denies cough or dyspnea Gastrointestinal Gastrointestinal: Denies nausea or vomiting Genitourinary Genitourinary ED: Denies dysuria or hematuria Musculoskeletal Musculoskeletal: Reports back pain and neck pain Integumentary Denies abscess or rash Neurologic Neurologic: Reports headache(s); Denies weakness Allergic/Imm (more content not included)... Normal [facility] Eosinophil percentageOrdered By: David Myers on 12-10-2024 Eosinophils/100 WBC (Bld) 0.5 % 0-5 [facility] Erythrocyte distribution wid th ratioOrdered By: David Myers on 12-10-2024 Erythrocyte distribution width (RBC) [Ratio] 12.1 % 11.6-14.6 [facility] Erythrocyte distribution wid th standard deviationOrdered By: David Myers on 12-10-2024 Erythrocyte distribution width (RBC) [Ratio] 41.8 fl 35.1-43.9 [facility] Glomerular filtration rate ( GFR) estimation/1.73 sq m using serum, plasma, or whole bOrdered By: David Myers on 12-10-2024 GFR/1.73 sq M.predicted among non-blacks MDRD (S/P/Bld) [Vol rate/Area] 78 mL/min/{1.73_m2} >60 [facility] Comment on above: mL/min/1.73m2 CKD-EP I Creatinine Equation (2020) Hematocrit Auto (Bld) [Volum e fraction]Ordered By: David Myers on 12-10-2024 Hematocrit (Bld) [Volume fraction] 40.9 % 40-54 [facility] Hemoglobin measurementOrdere d By: David Myers on 12-10-2024 Hemoglobin (Bld) [Mass/Vol] 13.8 g/dL 13.0-16.5 [facility] Immature granulocytes/100 WB C Auto (Bld)Ordered By: David Myers on 12-10-2024 Immature granulocytes/100 WBC (Bld) 0.500 % 0.0-0.9 [facility] Comment on above: IG% - Immature Granu locytes (promyelocytes, myelocytes and metamyelocytes) > 1% indicates that a LEFT SHIFT is Present. MCV (mean corpuscular volume ) determinationOrdered By: David Myers on 12-10-2024 MCV (RBC) [Entitic vol] 95.6 fL High 80-94 [facility] Mean corpuscular hemoglobin (MCH) determinationOrdered By: David Myers on 12-10-2024 MCH (RBC) [Entitic mass] 32.2 pg High 27.0-32.0 [facility] Mean corpuscular hemoglobin concentration (MCHC) determinationOrdered By: David Myers on 12-10-2024 MCHC (RBC) [Mass/Vol] 33.7 g/dL 32-36 [facility] Mean platelet volume determi nationOrdered By: David Myers on 12-10-2024 Platelet mean volume (Bld) [Entitic vol] 9.5 fL 6.2-12.0 [facility] Monocyte percentageOrdered B y: David Myers on 12-10-2024 Monocytes/100 WBC (Bld) 11.1 % High 0-10 [facility] Neutrophil percentageOrdered By: Davidalfreda Myers on 12-10-2024 Neutrophils/100 WBC (Bld) 73.8 % High 47-70 [facility] Nucleated red blood cell per centageOrdered By: David Myers on 12-10-2024 Nucleated RBC/100 WBC (Bld) [Ratio] 0 % 0-5 [facility] Platelet countOrdered By: Italo Myers on 12-10-2024 Platelets (Bld) [#/Vol] 270 10*3/uL 150-450 [facility] Potassium measurement (mass/ volume)Ordered By: David Myers on 12-10-2024 Potassium (Unsp spec) [Mass/Vol] 4.9 mmol/L 3.3-5.1 [facility] RBC Auto (Bld) [#/Vol]Ordere d By: David Myers on 12-10-2024 RBC (Bld) [#/Vol] 4.28 10*6/uL Low 4.6-6.2 [facility] Serum creatinine measurement (mass/volume)Ordered By: David Myers on 12-10-2024 Creatinine [Mass/Vol] 1.06 mg/dL 0.70-1.20 [facility] Serum glucose measurement (m ass/volume)Ordered By: David Myers on 12-10-2024 Glucose [Mass/Vol] 122 mg/dL High 70-99 [facility] Serum or plasma calcium meron urement (mass/volume)Ordered By: David Myers on 12-10-2024 Calcium [Mass/Vol] 9.4 mg/dL 7.6-11.0 [facility] Serum or plasma urea nitroge n measurement (mass/volume)Ordered By: David Myers on 12-10-2024 Urea nitrogen [Mass/Vol] 18 mg/dL 4-19 [facility] Sodium levelOrdered By: David Myers on 12-10-2024 Sodium [Moles/Vol] 136 mmol/L 133-145 [facility] Venous Duplex US, Unilateral on 12-10-2024 Venous Duplex US, Unilateral [facility] [address] [address] Venous Duplex US, Unilateral 12/10/24 1024 MR#: [id number] Acct: [id number] Name: ALLI KERR Rep #: [id number] : 1960 64 From: Oscar Camilo MD Attending Dr: Status: DEP ER Ordering Dr: David Myers DO Date: 12/10/24 Location: ED Sex: M C Admitted: Reason For Study Reason For Study: Right arm pain Right Proximal Right jugular vein is spontaneous, widely patent, phasic, with no intraluminal echogenicity noted. Right subclavian vein is spontaneous, widely patent, phasic, with no intraluminal echogenicity noted. Right Lower Arm Right radial vein is compressible. Right ulnar vein is compressible. Right Arm Right axillary vein is spontaneous, patent, phasic, competent, compressible and demonstrates augmentation. Right brachial vein is compressible. Right cephalic vein is compressible. Right basilic vein is compressible. Procedure This was a unilateral right upper extremity venous doppler examination. Exam performed portable in ED. A preliminary report was called and/or faxed to Dr. Myers. VL/Venous Duplex US, Unilateral Interpretation Summary Deep veins of the right upper extremity are patent and compressible segmentally. There is no evidence of deep vein thrombosis. The superficial veins of the right upper extremity, the basilic and cephalic veins, are patent and compressible. There is no evidence of right upper extremity superficial thrombophlebitis involving the veins imaged. Ordering Physician: David Myers Referring Physician: David Jacobo MD Performed By: Bianca Mclean RVT ??? 12/10/241929 Date Oscar Camilo MD CC: Dr. David Myers, DO; Dr. David Jacobo MD Date Dictated: 12/10/24 1024 Date Transcribed: 12/10/241929 Neurodiagnostic Tech: Signed Normal [facility] White blood cell (WBC) count Ordered By: David Myers on 12-10-2024 WBC (Bld) [#/Vol] 12.4 10*3/uL High 4.4-11.0 [facility] Cardiology Visit Reporton Cardiology Visit Report [facility] [address] [place] [address] OFFICE VISIT Date of Service: 11/02/24 MR#: [id number] Acct: [id number] Name: ALLI KERR Rep #: [id number] : 1960 Provider: YOLETTE caballero Age/Sex: 64/M Location: [facility] Status: Signed HPI HPI History of Present [...] gain. He does acknowledge occasional lightheadedness with "working hard". He denies dizziness, syncopal or near syncopal episodes, and headaches. 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 Required: No Accompanied by: Is patient in [...] the past year?: No PFSH Medical History (Reviewed 11/02/24 @ 15:07 by Vi Prieto [employer], [employer]-C) Acute ST elevation myocardial infarction (STEMI) ( 08/17/23) Strep pharyngitis Abscess, peritonsillar Dyslipidemia 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 disease Breast mass, right History of left heart catheterization (LHC) ( 12/29/21) SOB (shortness of breath) Abnormal stress test Angina pectoris HLD (hyperlipidemia) Myalgia Tobacco abuse Essential hypertension Presence of stent in coronary artery ( 11/15/20) Atherosclerotic heart disease of [place] coronary artery without angina pectoris STEMI (ST [...] Yes Lele (more content not included)... Normal [facility] Absolute lymphocyte countOrd ered By: David Jacobo on 07-27-2024 Lymphocytes Auto (Unsp spec) [#/Vol] 2.07 10*3/uL 0.83-4.51 [facility] Absolute neutrophil countOrd ered By: David Jacobo on 07-27-2024 Neutrophils (Bld) [#/Vol] 3.9 10*3/uL 2.0-7.7 [facility] Anion gap in Serum or Plasma Ordered By: David Jacobo on 07-27-2024 Anion gap [Moles/Vol] 11 mmol/L 5- [facility] Automated lymphocyte count a s percentage of total leukocytesOrdered By: David Jacobo on 07-27-2024 Lymphocytes/100 WBC Auto (Unsp spec) 30.0 % - [facility] BUN/creatinine ratioOrdered By: David Jacobo on 07-27-2024 Urea nitrogen/Creatinine [Mass ratio] 17.8 mg/mg 10- [facility] Basophil percentageOrdered B y: David Jacobo on 07-27-2024 Basophils/100 WBC (Bld) 0.3 % 0- [facility] Bilirubin, totalOrdered By: David Jacobo on 07-27-2024 Bilirubin [Mass/Vol] 0.33 mg/dL 0.00-1.30 [facility] CBC W/Diff, Automatedon 07-10 Absolute Lymph 2.07 X10 3/uL Normal 0.83-4.51 [facility] Comment on above: Order Comment: Order Date: 07/27/24Order Info: [id number] - CBCD Performed By: #### L 100.0100, L500.2500 #### [facility] [address] [place], [address] Absolute Neut 3.9 X10 3/uL Normal 2.0-7.7 [facility] Comment on above: Order Comment: Order Date: 07/27/24Order Info: [id number] - CBCD Performed By: #### L 100.0100, L500.2500 #### [facility] [address] [place], [address] Basophils/100 WBC (Bld) 0.3 % Normal 0-1 [facility] Comment on above: Order Comment: Order Date: 07/27/24Order Info: [id number] - CBCD Performed By: #### L 100.0100, L500.2500 #### [facility] [address] [place], [address] Eosinophils/100 WBC (Bld) 1.4 % Normal 0-5 [facility] Comment on above: Order Comment: Order Date: 07/27/24Order Info: [id number] - CBCD Performed By: #### L 100.0100, L500.2500 #### [facility] [address] [place], [address] Erythrocyte distribution width (RBC) [Ratio] 12.4 % Normal 11.6-14.6 [facility] Comment on above: Order Comment: Order Date: 07/27/24Order Info: [id number] - CBCD Performed By: #### L 100.0100, L500.2500 #### [facility] [address] [place], [address] Hematocrit (Bld) [Volume fraction] 40.4 % Normal 40-54 [facility] Comment on above: Order Comment: Order Date: 07/27/24Order Info: [id number] - CBCD Performed By: #### L 100.0100, L500.2500 #### [facility] [address] [place], [address] Hemoglobin (Bld) [Mass/Vol] 13.5 g/dL Normal 13.0-16.5 [facility] Comment on above: Order Comment: Order Date: 07/27/24Order Info: [id number] - CBCD Performed By: #### L 100.0100, L500.2500 #### [facility] [address] [place], [address] IG% 0.300 Normal 0.0-0.9 [facility] Comment on above: Order Comment: Order Date: 07/27/24Order Info: [id number] - CBCD Result Comment: IG% - Immature Granulocytes (promyelocytes, myelocytes and metamyelocytes) > 1% indicates that a LEFT SHIFT is Present. Performed By: #### L 100.0100, L500.2500 #### [facility] [address] [place], [address] Lymphocytes/100 WBC (Bld) 30.0 % Normal 19-41 [facility] Comment on above: Order Comment: Order Date: 07/27/24Order Info: [id number] - CBCD Performed By: #### L 100.0100, L500.2500 #### [facility] [address] [place], [address] MCH (RBC) [Entitic mass] 32.3 pg High 27.0-32.0 [facility] Comment on above: Order Comment: Order Date: 07/27/24Order Info: [id number] - CBCD Performed By: #### L 100.0100, L500.2500 #### [facility] [address] [place], [address] MCHC (RBC) [Mass/Vol] 33.4 g/dL Normal 32-36 [facility] Comment on above: Order Comment: Order Date: 07/27/24Order Info: [id number] - CBCD Performed By: #### L 100.0100, L500.2500 #### [facility] [address] [place], [address] MCV (RBC) [Entitic vol] 96.7 fL High 80-94 [facility] Comment on above: Order Comment: Order Date: 07/27/24Order Info: [id number] - CBCD Performed By: #### L 100.0100, L500.2500 #### [facility] [address] [place], [address] Monocytes/100 WBC (Bld) 11.3 % High 0-10 [facility] Comment on above: Order Comment: Order Date: 07/27/24Order Info: [id number] - CBCD Performed By: #### L 100.0100, L500.2500 #### [facility] [address] [place], [address] Neutrophils/100 WBC (Bld) 56.7 % Normal 47-70 [facility] Comment on above: Order Comment: Order Date: 07/27/24Order Info: [id number] - CBCD Performed By: #### L 100.0100, L500.2500 #### [facility] [address] [place], [address] Nucleated RBC (Bld) [#/Vol] 0 10*3/uL Normal 0-5 [facility] Comment on above: Order Comment: Order Date: 07/27/24Order Info: [id number] - CBCD Performed By: #### L 100.0100, L500.2500 #### [facility] [address] [place], [address] Platelet mean volume (Bld) [Entitic vol] 10.0 fL Normal 6.2-12.0 [facility] Comment on above: Order Comment: Order Date: 07/27/24Order Info: [id number] - CBCD Performed By: #### L 100.0100, L500.2500 #### [facility] [address] [place], [address] Platelets (Bld) [#/Vol] 261 10*3/uL Normal 150-450 [facility] Comment on above: Order Comment: Order Date: 07/27/24Order Info: [id number] - CBCD Performed By: #### L 100.0100, L500.2500 #### [facility] [address] [place], [address] RBC (Bld) [#/Vol] 4.18 10*6/uL Low 4.6-6.2 [facility] Comment on above: Order Comment: Order Date: 07/27/24Order Info: [id number] - CBCD Performed By: #### L 100.0100, L500.2500 #### [facility] [address] [place], [address] RDW SD 44.3 fl High 35.1-43.9 [facility] Comment on above: Order Comment: Order Date: 07/27/24Order Info: [id number] - CBCD Performed By: #### L 100.0100, L500.2500 #### [facility] [address] [place], [address] WBC (Bld) [#/Vol] 6.9 10*3/uL Normal 4.4-11.0 [facility] Comment on above: Order Comment: Order Date: 07/27/24Order Info: [id number] - CBCD Performed By: #### L 100.0100, L500.2500 #### [facility] [address] [place], [address] Calculated very low density lipoprotein (VLDL) cholesterol measurementOrdered By: David Jacobo on 07-27-2024 Calculated very low density lipoprotein (VLDL) cholesterol measurement 47 mg/dL High 5-40 [facility] Carbon dioxide, total [Moles /volume] in Central venous bloodOrdered By: David Jacobo on 07-27-2024 CO2 [Moles/Vol] 20.6 mmol/L Low 21.0-32.0 [facility] Chloride assayOrdered By: Italo Jacobo on 07-27-2024 Chloride [Moles/Vol] 105 mmol/L 98-108 [facility] Comprehensive Metabolic Prof ilon 07-27-2024 Albumin [Mass/Vol] 4.5 g/dL Normal 3.4-4.8 [facility] Comment on above: Order Comment: Order Date: 07/27/24Order Info: [id number] - CMPOrder Info: [id number] - LIPID Performed By: #### L 100.0100, L500.2500 #### [facility] [address] [place], [address] Albumin/Globulin [Mass ratio] 1.8 {ratio} Normal 0.9-2.4 [facility] Comment on above: Order Comment: Order Date: 07/27/24Order Info: [id number] - CMPOrder Info: [id number] - LIPID Performed By: #### L 100.0100, L500.2500 #### [facility] [address] [place], [address] ALK PHOS 72 U/L Normal 40-129 [facility] Comment on above: Order Comment: Order Date: 07/27/24Order Info: [id number] - CMPOrder Info: [id number] - LIPID Performed By: #### L 100.0100, L500.2500 #### [facility] [address] [place], [address] ALT [Catalytic activity/Vol] 22 U/L Normal <=46 [facility] Comment on above: Order Comment: Order Date: 07/27/24Order Info: [id number] - CMPOrder Info: [id number] - LIPID Performed By: #### L 100.0100, L500.2500 #### [facility] [address] [place], [address] AST [Catalytic activity/Vol] 25 U/L Normal <=37 [facility] Comment on above: Order Comment: Order Date: 07/27/24Order Info: [id number] - CMPOrder Info: [id number] - LIPID Performed By: #### L 100.0100, L500.2500 #### [facility] [address] [place], [address] Bilirubin [Mass/Vol] 0.33 mg/dL Normal 0.00-1.30 [facility] Comment on above: Order Comment: Order Date: 07/27/24Order Info: [id number] - CMPOrder Info: [id number] - LIPID Performed By: #### L 100.0100, L500.2500 #### [facility] [address] [place], [address] BUN/CRE 17.8 RATIO Normal 10-20 [facility] Comment on above: Order Comment: Order Date: 07/27/24Order Info: [id number] - CMPOrder Info: [id number] - LIPID Performed By: #### L 100.0100, L500.2500 #### [facility] [address] [place], [address] Calcium [Mass/Vol] 9.0 mg/dL Normal 7.6-11.0 [facility] Comment on above: Order Comment: Order Date: 07/27/24Order Info: [id number] - CMPOrder Info: [id number] - LIPID Performed By: #### L 100.0100, L500.2500 #### [facility] [address] [place], [address] Chloride [Moles/Vol] 105 mmol/L Normal 98-108 [facility] Comment on above: Order Comment: Order Date: 07/27/24Order Info: [id number] - CMPOrder Info: [id number] - LIPID Performed By: #### L 100.0100, L500.2500 #### [facility] [address] [place], [address] CO2 [Moles/Vol] 20.6 mmol/L Low 21.0-32.0 [facility] Comment on above: Order Comment: Order Date: 07/27/24Order Info: [id number] - CMPOrder Info: [id number] - LIPID Performed By: #### L 100.0100, L500.2500 #### [facility] [address] [place], [address] Creatinine [Mass/Vol] 1.01 mg/dL Normal 0.70-1.20 [facility] Comment on above: Order Comment: Order Date: 07/27/24Order Info: [id number] - CMPOrder Info: [id number] - LIPID Performed By: #### L 100.0100, L500.2500 #### [facility] [address] [place], [address] GAP 11 Normal 5-15 [facility] Comment on above: Order Comment: Order Date: 07/27/24Order Info: [id number] - CMPOrder Info: [id number] - LIPID Performed By: #### L 100.0100, L500.2500 #### [facility] [address] [place], [address] GFR/1.73 sq M.predicted among non-blacks MDRD (S/P/Bld) [Vol rate/Area] 83 mL/min/{1.73_m2} Normal >60 [facility] Comment on above: Order Comment: Order Date: 07/27/24Order Info: [id number]- - CMPOrder Info: [id number] - LIPID Result Comment: mL/m in/1.73m2 CKD-EPI Creatinine Equation (2020) Performed By: #### L 100.0100, L500.2500 #### [facility] [address] [place], [address] Globulin (S) [Mass/Vol] 2.6 g/dL Normal 2.2-4.2 [facility] Comment on above: Order Comment: Order Date: 07/27/24Order Info: 07-1 - CMPOrder Info: [id number] - LIPID Performed By: #### L 100.0100, L500.2500 #### [facility] [address] [place], [address] Glucose [Mass/Vol] 88 mg/dL Normal 70-99 [facility] Comment on above: Order Comment: Order Date: 07/27/24Order Info: 07-1 - CMPOrder Info: [id number] - LIPID Performed By: #### L 100.0100, L500.2500 #### [facility] [address] [place], [address] Potassium [Moles/Vol] 4.7 mmol/L Normal 3.3-5.1 [facility] Comment on above: Order Comment: Order Date: 07/27/24Order Info: 07- - CMPOrder Info: [id number] - LIPID Performed By: #### L 100.0100, L500.2500 #### [facility] [address] [place], [address] Sodium [Moles/Vol] 136 mmol/L Normal 133-145 [facility] Comment on above: Order Comment: Order Date: 07/27/24Order Info: [id number]- - CMPOrder Info: [id number] - LIPID Performed By: #### L 100.0100, L500.2500 #### [facility] [address] [place], [address] T PROT 7.1 g/dL Normal 5.9-8.4 [facility] Comment on above: Order Comment: Order Date: 07/27/24Order Info: [id number]- - CMPOrder Info: [id number] - LIPID Performed By: #### L 100.0100, L500.2500 #### [facility] [address] [place], [address] Urea nitrogen [Mass/Vol] 18 mg/dL Normal 4-19 [facility] Comment on above: Order Comment: Order Date: 07/27/24Order Info: [id number] - CMPOrder Info: [id number] - LIPID Performed By: #### L 100.0100, L500.2500 #### [facility] [address] [place], [address] Eosinophil percentageOrdered By: David Jacobo on 07-27-2024 Eosinophils/100 WBC (Bld) 1.4 % 0-5 [facility] Erythrocyte distribution wid th ratioOrdered By: David Jacobo on 07-27-2024 Erythrocyte distribution width (RBC) [Ratio] 12.4 % 11.6-14.6 [facility] Erythrocyte distribution wid th standard deviationOrdered By: David Jacobo on 07-27-2024 Erythrocyte distribution width (RBC) [Ratio] 44.3 fl High 35.1-43.9 [facility] Glomerular filtration rate ( GFR) estimation/1.73 sq m using serum, plasma, or whole bOrdered By: David Jacobo on 07-27-2024 GFR/1.73 sq M.predicted among non-blacks MDRD (S/P/Bld) [Vol rate/Area] 83 mL/min/{1.73_m2} >60 [facility] Comment on above: mL/min/1.73m2 CKD-EP I Creatinine Equation (2020) Hematocrit Auto (Bld) [Volum e fraction]Ordered By: David Jacobo on 07-27-2024 Hematocrit (Bld) [Volume fraction] 40.4 % 40-54 [facility] Hemoglobin measurementOrdere d By: David Jacobo on 07-27-2024 Hemoglobin (Bld) [Mass/Vol] 13.5 g/dL 13.0-16.5 [facility] Immature granulocytes/100 WB C Auto (Bld)Ordered By: David Jacobo on 07-27-2024 Immature granulocytes/100 WBC (Bld) 0.300 % 0.0-0.9 [facility] Comment on above: IG% - Immature Granu locytes (promyelocytes, myelocytes and metamyelocytes) > 1% indicates that a LEFT SHIFT is Present. LDL calc ser/plasOrdered By: David Jacobo on 07-27-2024 Cholesterol in LDL [Mass/Vol] 23 mg/dL [facility] Comment on above: Mrtwykfqxq=584-484 m g/dL & Higher Mtdo=062 mg/dL or greater Laboratory - Chemistry and C hemistry - challengeOrdered By: David Jacobo on 07-27-2024 AST [Catalytic activity/Vol] 25 U/L <38 [facility] Lipid Profileon 07-27-2024 CHOL:HDL 3.08 Normal [facility] Comment on above: Order Comment: Order Date: 07/27/24Order Info: [id number] - CMPOrder Info: [id number] - LIPID Performed By: #### L 100.0100, L500.2500 #### [facility] [address] [place], [address] Cholesterol [Mass/Vol] 104 mg/dL Normal <=200 [facility] Comment on above: Order Comment: Order Date: 07/27/24Order Info: [id number] - CMPOrder Info: [id number] - LIPID Result Comment: Chol esterol level, Desirable <200 mg/dL Borderline high cholesterol 200-239 mg/dL High cholesterol >=240 mg/dL Recommendations of the NCEP Adult Treatment Panel for the following risk-cutoff thresholds for the [place] population. Performed By: #### L 100.0100, L500.2500 #### [facility] [address] [place], [address] Cholesterol in HDL [Mass/Vol] 34 mg/dL Low [facility] Comment on above: Order Comment: Order Date: 07/27/24Order Info: [id number] - CMPOrder Info: [id number] - LIPID Result Comment: Samreen onal Cholesterol Education Program (NCEP) guidelines: <40 mg/dL: Low HDL-cholesterol (major risk factor for CHD) >= 60 mg/dL: High HDL-cholesterol (negative risk factor for CHD) HDL-cholesterol is affected by a number of factors, e.g. smoking, exercise, hormones, sex and age. Performed By: #### L 100.0100, L500.2500 #### [facility] [address] [place], [address] Cholesterol in LDL [Mass/Vol] 23 mg/dL Normal [facility] Comment on above: Order Comment: Order Date: 07/27/24Order Info: [id number] - CMPOrder Info: [id number] - LIPID Result Comment: Bord ahjfsj=901-357 mg/dL Higher Sjfe=377 mg/dL or greater Performed By: #### L 100.0100, L500.2500 #### [facility] [address] [place], [address] Cholesterol in VLDL [Mass/Vol] 47 mg/dL High 5-40 [facility] Comment on above: Order Comment: Order Date: 07/27/24Order Info: [id number] - CMPOrder Info: [id number] - LIPID Performed By: #### L 100.0100, L500.2500 #### [facility] [address] [place], [address] Triglyceride [Mass/Vol] 236 mg/dL High [facility] Comment on above: Order Comment: Order Date: 07/27/24Order Info: [id number] - CMPOrder Info: [id number] - LIPID Result Comment: The drugs N-Acetylcysteine and Metamizole may falsely depress this assay. Normal range: <150 mg/dL Borderline High: 150-199 mg/dL High: 200-499 mg/dL Very High: >500 mg/dL Performed By: #### L 100.0100, L500.2500 #### [facility] [address] [place], [place], [id number] MCV (mean corpuscular volume ) determinationOrdered By: David Jacobo on 07-27-2024 MCV (RBC) [Entitic vol] 96.7 fL High 80-94 [facility] Mean corpuscular hemoglobin (MCH) determinationOrdered By: David Jacobo on 07-27-2024 MCH (RBC) [Entitic mass] 32.3 pg High 27.0-32.0 [facility] Mean corpuscular hemoglobin concentration (MCHC) determinationOrdered By: David Jacobo on 07-27-2024 MCHC (RBC) [Mass/Vol] 33.4 g/dL 32-36 [facility] Mean platelet volume determi nationOrdered By: David Jacobo on 07-27-2024 Platelet mean volume (Bld) [Entitic vol] 10.0 fL 6.2-12.0 [facility] Monocyte percentageOrdered B y: David Jacobo on 07-27-2024 Monocytes/100 WBC (Bld) 11.3 % High 0-10 [facility] Neutrophil percentageOrdered By: David Jacobo on 07-27-2024 Neutrophils/100 WBC (Bld) 56.7 % 47-70 [facility] Nucleated red blood cell per centageOrdered By: David Jacobo on 07-27-2024 Nucleated RBC/100 WBC (Bld) [Ratio] 0 % 0-5 [facility] PSA,Total- Diagnosticon 07-10 PSA, DIAGNOSTIC 0.68 ng/mL Normal 0.00-4.00 [facility] Comment on above: Order Comment: Order Date: 07/27/24Order Info: [id number] - CMPOrder Info: [id number] - LIPID Result Comment: This test was [...] confirm baseline values. Performed By: #### L 100.0100, L500.2500 #### [facility] [address] [place], [address] Platelet countOrdered By: Italo Jacobo on 07-27-2024 Platelets (Bld) [#/Vol] 261 10*3/uL 150-450 [facility] Potassium measurement (mass/ volume)Ordered By: David Jacobo on 07-27-2024 Potassium (Unsp spec) [Mass/Vol] 4.7 mmol/L 3.3-5.1 [facility] RBC Auto (Bld) [#/Vol]Ordere d By: David Jacobo on 07-27-2024 RBC (Bld) [#/Vol] 4.18 10*6/uL Low 4.6-6.2 [facility] Screening total cholesterol/ high density lipoprotein (HDL) cholesterol ratioOrdered By: David Jacobo on 07-27-2024 Cholesterol.total/Cho lesterol in HDL [Mass ratio] 3.08 {ratio} [facility] Serum creatinine measurement (mass/volume)Ordered By: David Jacobo on 07-27-2024 Creatinine [Mass/Vol] 1.01 mg/dL 0.70-1.20 [facility] Serum globulin measurementOr dered By: David Jacobo on 07-27-2024 Globulin (S) [Mass/Vol] 2.6 g/dL 2.2-4.2 [facility] Serum glucose measurement (m ass/volume)Ordered By: David Jacobo on 07-27-2024 Glucose [Mass/Vol] 88 mg/dL 70-99 [facility] Serum or plasma alanine beck otransferase (ALT) measurementOrdered By: David Jacobo on 07-27-2024 ALT [Catalytic activity/Vol] 22 U/L <47 [facility] Serum or plasma albumin meorn urement (mass/volume)Ordered By: David Jacobo on 07-27-2024 Albumin [Mass/Vol] 4.5 g/dL 3.4-4.8 [facility] Serum or plasma albumin/glob ulin mass ratioOrdered By: David Jacobo on 07-27-2024 Albumin/Globulin [Mass ratio] 1.8 {ratio} 0.9-2.4 [facility] Serum or plasma alkaline holden sphatase measurementOrdered By: David Jacobo 07-27-2024 ALP [Catalytic activity/Vol] 72 U/L 40-129 [facility] Serum or plasma calcium meron urement (mass/volume)Ordered By: David Jacobo on 07-27-2024 Calcium [Mass/Vol] 9.0 mg/dL 7.6-11.0 [facility] Serum or plasma cholesterol in HDL measurement (mass/volume)Ordered By: David Jacobo on 07-27-2024 Cholesterol in HDL [Mass/Vol] 34 mg/dL Low >40 [facility] Comment on above: National Cholesterol Education Program (NCEP) guidelines:<40 mg/dL: Low HDL-cholesterol (major risk factor for CHD)>= 60 mg/dL: High HDL-cholesterol (negative risk factor for CHD)HDL-cholesterol is affected by a number of factors, e.g. smoking, exercise, hormones, sex and age. Serum or plasma cholesterol measurement (mass/volume)Ordered By: David Jacobo on 07-27-2024 Cholesterol [Mass/Vol] 104 mg/dL <201 [facility] Comment on above: Cholesterol level, D esirable <200 mg/dLBorderline high cholesterol 200-239 mg/dLHigh cholesterol >=240 mg/dLRecommendations of the NCEP Adult Treatment Panel for the following risk-cutoff thresholds for the [place] population. Serum or plasma urea nitroge n measurement (mass/volume)Ordered By: David Jacobo on 07-27-2024 Urea nitrogen [Mass/Vol] 18 mg/dL 4-19 [facility] Sodium levelOrdered By: David Jacobo on 07-27-2024 Sodium [Moles/Vol] 136 mmol/L 133-145 [facility] [facility] Total proteinOrdered By: Tammy Jacobo on 07-27-2024 Protein [Mass/Vol] 7.1 g/dL 5.9-8.4 [facility] Triglycerides measurementOrd ered By: David Jacobo on 07-27-2024 Triglyceride [Mass/Vol] 236 mg/dL High <199 [facility] Comment on above: The drugs N-Acetylcy steine and Metamizole may falsely depress this assay. Normal range: <150 mg/dLBorderline High: 150-199 mg/dLHigh: 200-499 mg/dLVery High: >500 mg/dL White blood cell (WBC) count Ordered By: David Jacobo on 07-27-2024 WBC (Bld) [#/Vol] 6.9 10*3/uL 4.4-11.0 [facility] CPK Total, Creatine Kinaseon 05-19-2024 CPK TOTAL 197 U/L Normal 39-308 [facility] Comment on above: Result Comment: Mode rate Hemolysis, Result may be falsely increased. Performed By: #### L 100.0100, L500.2500 #### [facility] [address] [place], [address] Comprehensive Metabolic Prof ilon 05-19-2024 Albumin [Mass/Vol] 3.7 g/dL Normal 3.2-5.0 [facility] Comment on above: Performed By: #### L 100.0100, L500.2500 #### [facility] [address] [place], [place], [id number] Albumin/Globulin [Mass ratio] 1.1 {ratio} Normal 0.9-2.4 [facility] Comment on above: Performed By: #### L 100.0100, L500.2500 #### [facility] [address] [place], [address] ALK P 69 U/L Normal 45-117 [facility] Comment on above: Performed By: #### L 100.0100, L500.2500 #### [facility] [address] [place], [address] ALT [Catalytic activity/Vol] 25 U/L Normal 16-61 [facility] Comment on above: Performed By: #### L 100.0100, L500.2500 #### [facility] [address] [place], [address] AST [Catalytic activity/Vol] 24 U/L Normal 15-37 [facility] Comment on above: Result Comment: Mode rate Hemolysis, Result may be falsely increased. Performed By: #### L 100.0100, L500.2500 #### [facility] [address] [place], [address] Bilirubin [Mass/Vol] 0.40 mg/dL Normal 0.20-1.00 [facility] Comment on above: Result Comment: For patients on eltrombopag therapy, use of Dimension [place] TBIL is not recommended. Performed By: #### L 100.0100, L500.2500 #### [facility] [address] [place], [address] BUN/CRE 20.6 RATIO High 10-20 [facility] Comment on above: Performed By: #### L 100.0100, L500.2500 #### [facility] [address] [place], [address] CA,Total 8.6 mg/dL Normal 8.5-10.1 [facility] Comment on above: Performed By: #### L 100.0100, L500.2500 #### [facility] [address] [place], [address] Chloride [Moles/Vol] 110 mmol/L High 98-107 [facility] Comment on above: Performed By: #### L 100.0100, L500.2500 #### [facility] [address] [place], [address] CO2 [Moles/Vol] 25.0 mmol/L Normal 21.0-32.0 [facility] Comment on above: Performed By: #### L 100.0100, L500.2500 #### [facility] [address] [place], [address] Creatinine [Mass/Vol] 1.07 mg/dL Normal 0.70-1.30 [facility] Comment on above: Result Comment: The validity of the calculated GFR GFRAA in patients over 70 years has not been determined. Clinical correlation is essential. Performed By: #### L 100.0100, L500.2500 #### [facility] [address] [place], [address] EST GFR - AA 90 mL/min Normal >60 [facility] Comment on above: Result Comment: Afri can Vietnamese GFR Calc Performed By: #### L 100.0100, L500.2500 #### [facility] [address] [place], [address] GAP 5 Normal 5-15 [facility] Comment on above: Performed By: #### L 100.0100, L500.2500 #### [facility] [address] [place], [address] GFR/1.73 sq M.predicted among non-blacks MDRD (S/P/Bld) [Vol rate/Area] 74 mL/min/{1.73_m2} Normal >60 [facility] Comment on above: Result Comment: Non- GFR Calc Performed By: #### L 100.0100, L500.2500 #### [facility] [address] [place], [address] Globulin (S) [Mass/Vol] 3.4 g/dL Normal 2.2-4.2 [facility] Comment on above: Performed By: #### L 100.0100, L500.2500 #### [facility] [address] [place], [address] Glucose [Mass/Vol] 98 mg/dL Normal 74-106 [facility] Comment on above: Performed By: #### L 100.0100, L500.2500 #### [facility] [address] [place], [address] Potassium [Moles/Vol] 5.0 mmol/L Normal 3.5-5.1 [facility] Comment on above: Result Comment: Mode rate Hemolysis, Result may be falsely increased. Performed By: #### L 100.0100, L500.2500 #### [facility] [address] [place], [address] Sodium [Moles/Vol] 140 mmol/L Normal 136-145 [facility] Comment on above: Performed By: #### L 100.0100, L500.2500 #### [facility] [address] [place], [address] T PROT 7.1 g/dL Normal 6.4-8.2 [facility] Comment on above: Performed By: #### L 100.0100, L500.2500 #### [facility] [address] [place], [address] Urea nitrogen [Mass/Vol] 22 mg/dL High 7-18 [facility] Comment on above: Performed By: #### L 100.0100, L500.2500 #### [facility] [address] [place], [address] Lipid Profileon 05-19-2024 Cholesterol [Mass/Vol] 189 mg/dL Normal 200 [facility] Comment on above: Result Comment: <200 mg/dL Desirable 200-240 mg/dL Borderline >240 mg/dL High Risk Performed By: #### L 100.0100, L500.2500 #### [facility] [address] [place], [address] Cholesterol in HDL [Mass/Vol] 35 mg/dL Low [facility] Comment on above: Result Comment: The drugs N-Acetylcysteine and Metamizole may falsely depress this assay. Reference Range HDL <40 mg/dL Low HDL Cholesterol HDL >or= 60 mg/dL High HDL Cholesterol Performed By: #### L 100.0100, L500.2500 #### [facility] [address] [place], [address] Cholesterol in LDL [Mass/Vol] 108 mg/dL Normal 0-130 [facility] Comment on above: Performed By: #### L 100.0100, L500.2500 #### [facility] [address] [place], [address] Cholesterol in VLDL [Mass/Vol] 46 mg/dL High 5-40 [facility] Comment on above: Performed By: #### L 100.0100, L500.2500 #### [facility] [address] [place], [address] Triglyceride [Mass/Vol] 230 mg/dL High [facility] Comment on above: Result Comment: The drugs N-Acetylcysteine and Metamizole may falsely depress this assay. Serum Triglycerides Reference Interval Normal <150 mg/dL Borderline high 150 - 199 mg/dL High 200 - 499 mg/dL Very High > or = 500 mg/dL Performed By: #### L 100.0100, L500.2500 #### [facility] [address] [place], [address] Cardiology Visit Reporton Cardiology Visit Report [facility] [address] [place] [address] OFFICE VISIT Date of Service: 05/09/24 MR#: [id number] Acct: [id number] Name: ALLI KERR Rep #: [id number] : 1960 Provider: Dr. 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 Takes all medications HS); Negative for weakness, headache(s) or weight gain ENT ENT: Negative for headache(s), dizziness, Nosebleed/epistaxis or balance problems Cardio Chest Pain: Yes (occasionally) Frequency: monthly ("a couple of times every few weeks") Character: dull and other (burning) Palpitations: No [...] Clear t (more content not included)... Normal [facility] PSA,Total - Annual Screenon 03-30-2024 PSA,TOT SCREEN 0.50 ng/mL Normal 0.00-4.00 [facility] Comment on above: Order Comment: Order Date: 03/30/24Order Info: [id number] - PSA Result Comment: This test was performed using the TPSA assay method for the [employer] chemistry system. Values obtained with different assay methods cannot be used interchangably. When changing PSA assays in the course of monitoring a patient, additional sequential testing should be carried out to confirm baseline values. Performed By: #### L 100.0100, L500.2500 #### [facility] [address] [place], [place], [address] [facility] 12-13-2023 [facility] Telephone ([facility]) ALLI KERR ([id number]) 1960 Date Time Provider Department 12/13/23 ERICA SAHA [facility] During your visit today, we recorded the following information about you: Erica Saha APRN.[facility] 12/13/2023 10:08 AM Signed You tested positive [...] days, such as taking additional steps for equipment or machinery cleaner air, hygiene, masks, physical distancing, [...] Encounter Status:Closed by Prema AUGUSTE on 12/13/23 [facility] CNOVon 12-12-2023 CNOV Office Visit (UCWSTR ) ALLI KERR ([id number]) 1960 M Date Time Provider Department 12/12/23 9:45 AM ILANA SANABRIA During your visit today, we recorded the following information about you: Temperature Pulse Respiration Blood pressure 99 degrees 75/minute 20/minute 120/68 Weight 87.5 kg Ilana Sanabria APRN.[employer] 12/12/2023 9:59 AM Signed Subjective HPI Alli presents with three day hx of of sore throat, cough and fever. He states he feels better today and no fever. He and his just returned from [place]. He is eating and drinking well. Denies [...] if symptoms persist or worsen Ilana Sanabria APRN.[employer] Allergies As of Date: 12/12/2023 (No Known [...] AND RSV PCR, ROUTINE [SQCVFLRS] Order #: [id number] FUTURE COVID AND INFLUENZA A/B AND RSV PCR, ROUTINE [SQCVFLRS] Order #: [id number]. #:[id number] Prescriptions as of 12/12/2023 - telmisartan (MICARDIS) [...] use. - (more content not included)... Normal [facility] COVID AND INFLUENZA A/B AND RSV PCR, ROUTINEon 12-12-2023 SARS-CoV-2 (COVID-19) RNA PASQUALE+probe Ql (Unsp spec) SARS-COV-2 (AGENT OF COVID-19) RNA: Detected INFLUENZA A RNA: Not detected INFLUENZA B RNA: Not detected RESPIRATORY SYNCYTIAL VIRUS (RSV) RNA: Not detected Abnormal [facility] Comment on above: Performed By: #### C VFLRS #### [facility] CLIA [id number] [address] [place] [address] [place] Basophil percentageOrdered B y: Dorene Rodriguez on 08-19-2023 Chloride [Moles/Vol] 107 mmol/L 98-107 [facility] Glucose [Mass/Vol] 106 mg/dL 74-106 [facility] Comment on above: Fasting Glucose resu lt from 100 to 125 mg/dL suggests IMPAIRED HOMEOSTASIS per A.D.A. criteria. Hemoglobin (Bld) [Mass/Vol] 13.0 g/dL 13.0-16.5 [facility] Potassium [Moles/Vol] 4.2 mmol/L 3.5-5.1 [facility] Sodium [Moles/Vol] 138 mmol/L 136-145 [facility] WBC (Bld) [#/Vol] 10.2 10*3/uL 4.4-11.0 [facility] Determination of erythrocyte mean corpuscular volume (MCV)Ordered By: Dorene Rodriguez on 08-19-2023 MCV (RBC) [Entitic vol] 98.0 fL 80-94 [facility] Erythrocyte distribution wid th ratioOrdered By: Dorene Rodriguez on 08-19-2023 Erythrocyte distribution width (RBC) [Ratio] 11.9 % 11.6-14.6 [facility] Erythrocyte distribution wid th standard deviationOrdered By: Dorene Rodriguez on 08-19-2023 Erythrocyte distribution width (RBC) [Entitic vol] 43.0 fL 35.1-43.9 [facility] Hematocrit Auto (Bld) [Volum e fraction]Ordered By: Dorene Rodriguez on 08-19-2023 Hematocrit (Bld) [Volume fraction] 40.2 % 40-54 [facility] - Chemistry and C hemistry - challengeOrdered By: Dorene Rodriguez on 08-19-2023 CO2 [Moles/Vol] 27.0 mmol/L 21.0-32.0 [facility] Urea nitrogen/Creatinine [Mass ratio] 16.0 mg/mg 10-20 [facility] - Hematology and Cell countsOrdered By: Dorene Rodriguez on 08-19-2023 MCH (RBC) [Entitic mass] 31.7 pg 27.0-32.0 [facility] MCHC (RBC) [Mass/Vol] 32.3 g/dL 32-36 [facility] Platelet mean volume (Bld) [Entitic vol] 9.1 fL 6.2-12.0 [facility] Platelets (Bld) [#/Vol] 324 10*3/uL 150-450 [facility] No Panel InformationOrdered By: Dorene Rodriguez on 08-19-2023 Estimated Creatinine Clearance Calc 84.74 ml/min [facility] Estimated GFR (MDRD) Amer 97 mL/min >60 [facility] Comment on above: GFR Calc Estimated GFR (MDRD) Non-Af Amer 80 mL/min >60 [facility] Comment on above: Non- GFR Calc RBC Auto (Bld) [#/Vol]Ordere d By: Dorene Rodriguez on 08-19-2023 RBC (Bld) [#/Vol] 4.10 10*6/uL 4.6-6.2 [facility] Serum or plasma calcium meron urement (mass/volume)Ordered By: Dorene Rodriguez on 08-19-2023 Calcium [Mass/Vol] 8.6 mg/dL 8.5-10.1 [facility] Serum or plasma creatinine m easurement (mass/volume)Ordered By: Dorene Rodriguez on 08-19-2023 Creatinine [Mass/Vol] 1.00 mg/dL 0.70-1.30 [facility] Comment on above: The validity of the calculated GFR & GFRAA in patients over 70 years has not been determined. Clinical correlation is essential. Serum or plasma urea nitroge n measurement (mass/volume)Ordered By: Dorene Rodriguez on 08-19-2023 Urea nitrogen [Mass/Vol] 16 mg/dL 7-18 [facility] Thin prep Papanicolaou smear with manual screeningOrdered By: Dorene Rodriguez on 08-19-2023 Thin prep Papanicolaou smear with manual screening 4 5-15 [facility] Basophil percentageOrdered B y: Sav Abrams on 08-18-2023 Bilirubin [Mass/Vol] 0.50 mg/dL 0.20-1.00 [facility] Comment on above: For patients on eltr ombopag therapy, use of Dimension [place] TBIL is not recommended. Cholesterol [Mass/Vol] 82 mg/dL <200 [facility] Comment on above: <200 mg/dL Desirable 200-240 mg/dL Borderline >240 mg/dL High Risk Protein [Mass/Vol] 6.0 g/dL 6.4-8.2 [facility] Triglyceride [Mass/Vol] 227 mg/dL <199 [facility] Comment on above: The drugs N-Acetylcy steine and Metamizole may falsely depress this assay.Serum Triglycerides Reference Interval Normal <150 mg/dL Borderline high 150 - 199 mg/dL High 200 - 499 mg/dL Very High > or = 500 mg/dL Laboratory - Chemistry and C hemistry - challengeOrdered By: Sav Abrams on 08-18-2023 Albumin/Globulin [Mass ratio] 1.1 {ratio} 0.9-2.4 [facility] ALP [Catalytic activity/Vol] 55 U/L 45-117 [facility] ALT [Catalytic activity/Vol] 42 U/L 16-61 [facility] Cholesterol in HDL [Mass/Vol] 27 mg/dL >40 [facility] Comment on above: The drugs N-Acetylcy steine and Metamizole may falsely depress this assay. Reference Range HDL <40 mg/dL Low HDL Cholesterol HDL >or= 60 mg/dL High HDL Cholesterol Cholesterol in LDL [Mass/Vol] 10 mg/dL 0-130 [facility] Globulin (S) [Mass/Vol] 2.9 g/dL 2.2-4.2 [facility] No Panel InformationOrdered By: Sav Abrams on 08-18-2023 VLDL Cholesterol 45 mg/dL 5-40 [facility] Thin prep Papanicolaou smear with manual screeningOrdered By: Sav Abrams on 08-18-2023 Thin prep Papanicolaou smear with manual screening 3.1 g/dL 3.2-5.0 [facility] Thin prep Papanicolaou smear with manual screening 132 U/L 15-37 [facility] Whole blood hemoglobin A1c/t otal hemoglobin ratio (mass fraction)Ordered By: Dorene Rodriguez on 08-18-2023 HbA1c (Bld) [Mass fraction] 5.7 % 3.8-5.6 [facility] Comment on above: Normal < 5.7 % Predi abetic 5.7 - 6.4 % Diabetic >or= 6.5 % Please note range changes. Absolute lymphocyte countOrd ered By: David Myers on 08-17-2023 Lymphocytes Auto (Unsp spec) [#/Vol] 2.66 10*3/uL 0.83-4.51 [facility] Activated partial thrombopla stin time (aPTT) in platelet poor plasma by coagulation aOrdered By: David Myers on 08-17-2023 aPTT Coag (PPP) [Time] 23.6 s 24.1-36.2 [facility] Automated lymphocyte count a s percentage of total leukocytesOrdered By: David Myers on 08-17-2023 Lymphocytes/100 WBC Auto (Unsp spec) 21.9 % 19-41 [facility] Basophil percentageOrdered B y: David Myers on 08-17-2023 Basophils/100 WBC (Bld) 0.7 % 0-1 [facility] Chloride [Moles/Vol] 105 mmol/L 98-107 [facility] Eosinophils/100 WBC (Bld) 0.6 % 0-5 [facility] Glucose [Mass/Vol] 140 mg/dL 74-106 [facility] Comment on above: Fasting Glucose resu lt greater than or equal to 126 mg/dL suggests DIABETES MELLITUS per A.D.A. criteria. Hemoglobin (Bld) [Mass/Vol] 13.6 g/dL 13.0-16.5 [facility] Monocytes/100 WBC (Bld) 8.7 % 0-10 [facility] Neutrophils (Bld) [#/Vol] 8.0 10*3/uL 2.0-7.7 [facility] Neutrophils/100 WBC (Bld) 66.3 % 47-70 [facility] Potassium [Moles/Vol] 4.4 mmol/L 3.5-5.1 [facility] Sodium [Moles/Vol] 137 mmol/L 136-145 [facility] WBC (Bld) [#/Vol] 12.1 10*3/uL 4.4-11.0 [facility] Determination of erythrocyte mean corpuscular volume (MCV)Ordered By: David Myers on 08-17-2023 MCV (RBC) [Entitic vol] 95.2 fL 80-94 [facility] Erythrocyte distribution wid th ratioOrdered By: David Myers on 08-17-2023 Erythrocyte distribution width (RBC) [Ratio] 11.7 % 11.6-14.6 [facility] Erythrocyte distribution wid th standard deviationOrdered By: David Myers on 08-17-2023 Erythrocyte distribution width (RBC) [Entitic vol] 40.7 fL 35.1-43.9 [facility] Hematocrit Auto (Bld) [Volum e fraction]Ordered By: David Myers on 08-17-2023 Hematocrit (Bld) [Volume fraction] 41.4 % 40-54 [facility] Immature granulocytes/100 WB C Auto (Bld)Ordered By: David Myers on 08-17-2023 Immature granulocytes/100 WBC (Bld) 1.800 % 0.0-0.9 [facility] Comment on above: IG% - Immature Granu locytes (promyelocytes, myelocytes and metamyelocytes) > 1% indicates that a LEFT SHIFT is Present. Laboratory - Chemistry and C hemistry - challengeOrdered By: David Myers on 08-17-2023 CO2 [Moles/Vol] 22.0 mmol/L 21.0-32.0 [facility] Urea nitrogen/Creatinine [Mass ratio] 16.6 mg/mg 10-20 [facility] - CoagulationOrde red By: David Myers on 08-17-2023 INR Coag (Bld) [Relative time] 1.1 {INR} [facility] PT Coag (PPP) [Time] 13.9 s 11.7-14.9 [facility] - Hematology and Cell countsOrdered By: David Myers on 08-17-2023 MCH (RBC) [Entitic mass] 31.3 pg 27.0-32.0 [facility] MCHC (RBC) [Mass/Vol] 32.9 g/dL 32-36 [facility] Nucleated RBC/100 WBC (Bld) [Ratio] 0 % 0-5 [facility] Platelet mean volume (Bld) [Entitic vol] 9.1 fL 6.2-12.0 [facility] Platelets (Bld) [#/Vol] 415 10*3/uL 150-450 [facility] No Panel InformationOrdered By: Dorene Rodriguez on 08-17-2023 Activated Clotting Time 250 sec 74-137 [facility] No Panel InformationOrdered By: David Myers on 08-17-2023 Estimated Creatinine Clearance Calc 46.80 ml/min [facility] Estimated GFR (MDRD) Amer 49 mL/min >60 [facility] Comment on above: GFR Calc Estimated GFR (MDRD) Non-Af Amer 40 mL/min >60 [facility] Comment on above: Non- GFR Calc Troponin I High Sensitivity 100 pg/mL 3.0-78.0 [facility] Comment on above: Please Note: New Helen t Units and Gender Specific Reference Ranges. For more information see Policy Stat Procedure [place] High Sensitivity Troponin (TNIH) and attachments. RBC Auto (Bld) [#/Vol]Ordere d By: David Myers on 08-17-2023 RBC (Bld) [#/Vol] 4.35 10*6/uL 4.6-6.2 [facility] Serum or plasma calcium meron urement (mass/volume)Ordered By: David Myers on 08-17-2023 Calcium [Mass/Vol] 9.3 mg/dL 8.5-10.1 [facility] Serum or plasma creatinine m easurement (mass/volume)Ordered By: David Myers on 08-17-2023 Creatinine [Mass/Vol] 1.81 mg/dL 0.70-1.30 [facility] Comment on above: The validity of the calculated GFR & GFRAA in patients over 70 years has not been determined. Clinical correlation is essential. Serum or plasma urea nitroge n measurement (mass/volume)Ordered By: David Myers on 08-17-2023 Urea nitrogen [Mass/Vol] 30 mg/dL 7-18 [facility] Thin prep Papanicolaou smear with manual screeningOrdered By: David Myers on 08-17-2023 Thin prep Papanicolaou smear with manual screening 10 5-15 [facility] Absolute lymphocyte countOrd ered By: Eleno Quijano on 08-15-2023 Lymphocytes Auto (Unsp spec) [#/Vol] 0.99 10*3/uL 0.83-4.51 [facility] Automated lymphocyte count a s percentage of total leukocytesOrdered By: Eleno Quijano on 08-15-2023 Lymphocytes/100 WBC Auto (Unsp spec) 8.0 % 19-41 [facility] Basophil percentageOrdered B y: Eleno Quijano on 08-15-2023 Basophil percentage 2.6 mg/dL 2.5-4.9 [facility] Basophils/100 WBC (Bld) 0.1 % 0-1 [facility] Chloride [Moles/Vol] 107 mmol/L 98-107 [facility] Eosinophils/100 WBC (Bld) 0.0 % 0-5 [facility] Glucose [Mass/Vol] 207 mg/dL 74-106 [facility] Comment on above: Glucose result great er than or equal to 200 mg/dLsuggests DIABETES MELLITUS per A.D.A. criteria. Hemoglobin (Bld) [Mass/Vol] 13.6 g/dL 13.0-16.5 [facility] Monocytes/100 WBC (Bld) 2.9 % 0-10 [facility] Neutrophils (Bld) [#/Vol] 11.0 10*3/uL 2.0-7.7 [facility] Neutrophils/100 WBC (Bld) 88.4 % 47-70 [facility] Potassium [Moles/Vol] 4.2 mmol/L 3.5-5.1 [facility] Sodium [Moles/Vol] 137 mmol/L 136-145 [facility] WBC (Bld) [#/Vol] 12.4 10*3/uL 4.4-11.0 [facility] Determination of erythrocyte mean corpuscular volume (MCV)Ordered By: Eleno Quijano on 08-15-2023 MCV (RBC) [Entitic vol] 96.2 fL 80-94 [facility] Erythrocyte distribution wid th ratioOrdered By: Eleno Quijano on 08-15-2023 Erythrocyte distribution width (RBC) [Ratio] 11.8 % 11.6-14.6 [facility] Erythrocyte distribution wid th standard deviationOrdered By: Eleno Quijano on 08-15-2023 Erythrocyte distribution width (RBC) [Entitic vol] 41.2 fL 35.1-43.9 [facility] Hematocrit Auto (Bld) [Volum e fraction]Ordered By: Eleno Quijano on 08-15-2023 Hematocrit (Bld) [Volume fraction] 40.7 % 40-54 [facility] Immature granulocytes/100 WB C Auto (Bld)Ordered By: Eleno Quijano on 08-15-2023 Immature granulocytes/100 WBC (Bld) 0.600 % 0.0-0.9 [facility] Comment on above: IG% - Immature Granu locytes (promyelocytes, myelocytes and metamyelocytes) > 1% indicates that a LEFT SHIFT is Present. Laboratory - Chemistry and C hemistry - challengeOrdered By: Eleno Quijano on 08-15-2023 CO2 [Moles/Vol] 24.0 mmol/L 21.0-32.0 [facility] Magnesium [Mass/Vol] 2.3 mg/dL 1.6-2.6 [facility] [facility] Urea nitrogen/Creatinine [Mass ratio] 17.6 mg/mg 10-20 [facility] Laboratory - Hematology and Cell countsOrdered By: Eleno Quijano on 08-15-2023 MCH (RBC) [Entitic mass] 32.2 pg 27.0-32.0 [facility] MCHC (RBC) [Mass/Vol] 33.4 g/dL 32-36 [facility] Nucleated RBC/100 WBC (Bld) [Ratio] 0 % 0-5 [facility] Platelet mean volume (Bld) [Entitic vol] 9.6 fL 6.2-12.0 [facility] Platelets (Bld) [#/Vol] 309 10*3/uL 150-450 [facility] No Panel InformationOrdered By: Eleno Quijano on 08-15-2023 Estimated Creatinine Clearance Calc 99.42 ml/min [facility] Estimated GFR (MDRD) Amer 116 mL/min >60 [facility] Comment on above: GFR Calc Estimated GFR (MDRD) Non-Af Amer 96 mL/min >60 [facility] Comment on above: Non- GFR Calc RBC Auto (Bld) [#/Vol]Ordere d By: Eleno Quijano on 08-15-2023 RBC (Bld) [#/Vol] 4.23 10*6/uL 4.6-6.2 [facility] Serum or plasma calcium meron urement (mass/volume)Ordered By: Eleno Quijano on 08-15-2023 Calcium [Mass/Vol] 8.9 mg/dL 8.5-10.1 [facility] Serum or plasma creatinine m easurement (mass/volume)Ordered By: Eleno Quijano on 08-15-2023 Creatinine [Mass/Vol] 0.85 mg/dL 0.70-1.30 [facility] Comment on above: The validity of the calculated GFR & GFRAA in patients over 70 years has not been determined. Clinical correlation is essential. Serum or plasma urea nitroge n measurement (mass/volume)Ordered By: Eleno Quijano on 08-15-2023 Urea nitrogen [Mass/Vol] 15 mg/dL 7-18 [facility] Thin prep Papanicolaou smear with manual screeningOrdered By: Eleno Quijano on 08-15-2023 Thin prep Papanicolaou smear with manual screening 6 5-15 [facility] Absolute lymphocyte countOrd ered By: Nydia Rivers on 08-14-2023 Lymphocytes Auto (Unsp spec) [#/Vol] 0.90 10*3/uL 0.83-4.51 [facility] Automated lymphocyte count a s percentage of total leukocytesOrdered By: Nydia Rivers on 08-14-2023 Lymphocytes/100 WBC Auto (Unsp spec) 5.8 % 19-41 [facility] Bacteria identified Cx Nom ( Wound)Ordered By: Cisco Lincoln on 08-14-2023 Wound Culture Actinomyces naeslundii [facility] Basophil percentageOrdered B y: Nydia Rivers on 08-14-2023 Basophils/100 WBC (Bld) 0.1 % 0-1 [facility] Chloride [Moles/Vol] 105 mmol/L 98-107 [facility] Eosinophils/100 WBC (Bld) 0.0 % 0-5 [facility] Glucose [Mass/Vol] 142 mg/dL 74-106 [facility] Comment on above: Fasting Glucose resu lt greater than or equal to 126 mg/dL suggests DIABETES MELLITUS per A.D.A. criteria. Hemoglobin (Bld) [Mass/Vol] 14.0 g/dL 13.0-16.5 [facility] Monocytes/100 WBC (Bld) 4.0 % 0-10 [facility] Neutrophils (Bld) [#/Vol] 13.9 10*3/uL 2.0-7.7 [facility] Neutrophils/100 WBC (Bld) 89.7 % 47-70 [facility] Potassium [Moles/Vol] 4.5 mmol/L 3.5-5.1 [facility] Sodium [Moles/Vol] 136 mmol/L 136-145 [facility] WBC (Bld) [#/Vol] 15.5 10*3/uL 4.4-11.0 [facility] Determination of erythrocyte mean corpuscular volume (MCV)Ordered By: Nydia Rivers on 08-14-2023 MCV (RBC) [Entitic vol] 95.6 fL 80-94 [facility] Erythrocyte distribution wid th ratioOrdered By: Nydia Rivers on 08-14-2023 Erythrocyte distribution width (RBC) [Ratio] 11.8 % 11.6-14.6 [facility] Erythrocyte distribution wid th standard deviationOrdered By: Nydia Rivers on 08-14-2023 Erythrocyte distribution width (RBC) [Entitic vol] 41.2 fL 35.1-43.9 [facility] Gram stain for investigation of transfusion reactionOrdered By: Cisco Lincoln on 08-14-2023 Microscopic observation Gram stain Nom (Unsp spec) [facility] Hematocrit Auto (Bld) [Volum e fraction]Ordered By: Nydia Rivers on 08-14-2023 Hematocrit (Bld) [Volume fraction] 41.7 % 40-54 [facility] Immature granulocytes/100 WB C Auto (Bld)Ordered By: Nydia Rivers on 08-14-2023 Immature granulocytes/100 WBC (Bld) 0.400 % 0.0-0.9 [facility] Comment on above: IG% - Immature Granu locytes (promyelocytes, myelocytes and metamyelocytes) > 1% indicates that a LEFT SHIFT is Present. Laboratory - Chemistry and C hemistry - challengeOrdered By: Nydia Rivers on 08-14-2023 CO2 [Moles/Vol] 25.0 mmol/L 21.0-32.0 [facility] Urea nitrogen/Creatinine [Mass ratio] 18.7 mg/mg 10-20 [facility] Laboratory - Hematology and Cell countsOrdered By: Nydia Rivers on 08-14-2023 MCH (RBC) [Entitic mass] 32.1 pg 27.0-32.0 [facility] MCHC (RBC) [Mass/Vol] 33.6 g/dL 32-36 [facility] Nucleated RBC/100 WBC (Bld) [Ratio] 0 % 0-5 [facility] Platelet mean volume (Bld) [Entitic vol] 9.2 fL 6.2-12.0 [facility] Platelets (Bld) [#/Vol] 297 10*3/uL 150-450 [facility] No Panel InformationOrdered By: Nydia Rivers on 08-14-2023 Estimated Creatinine Clearance Calc 88.43 ml/min [facility] Estimated GFR (MDRD) Amer 101 mL/min >60 [facility] Comment on above: GFR Calc Estimated GFR (MDRD) Non-Af Amer 84 mL/min >60 [facility] Comment on above: Non- GFR Calc RBC Auto (Bld) [#/Vol]Ordere d By: Nydia Rivers on 08-14-2023 RBC (Bld) [#/Vol] 4.36 10*6/uL 4.6-6.2 [facility] Serum or plasma calcium meron urement (mass/volume)Ordered By: Nydia Rivers on 08-14-2023 Calcium [Mass/Vol] 9.3 mg/dL 8.5-10.1 [facility] Serum or plasma creatinine m easurement (mass/volume)Ordered By: Nydia Rivers on 08-14-2023 Creatinine [Mass/Vol] 0.96 mg/dL 0.70-1.30 [facility] Comment on above: The validity of the calculated GFR & GFRAA in patients over 70 years has not been determined. Clinical correlation is essential. Serum or plasma urea nitroge n measurement (mass/volume)Ordered By: Nydia Rivers on 08-14-2023 Urea nitrogen [Mass/Vol] 18 mg/dL 7-18 [facility] Streptococcus pyogenes rRNA detection in throat by DNA probeOrdered By: Nydia Rivers on 08-14-2023 S. pyogenes rRNA Probe Ql (Throat) [facility] Thin prep Papanicolaou smear with manual screeningOrdered By: Nydia Rivers on 08-14-2023 Thin prep Papanicolaou smear with manual screening 6 5-15 [facility] Basophil percentageOrdered B y: Tanner Granger on 06-25-2023 Bilirubin [Mass/Vol] 0.50 mg/dL 0.20-1.00 [facility] Comment on above: For patients on eltr ombopag therapy, use of Dimension [place] TBIL is not recommended. Cholesterol [Mass/Vol] 114 mg/dL <200 [facility] Comment on above: <200 mg/dL Desirable 200-240 mg/dL Borderline >240 mg/dL High Risk Protein [Mass/Vol] 7.2 g/dL 6.4-8.2 [facility] Triglyceride [Mass/Vol] 180 mg/dL <199 [facility] Comment on above: The drugs N-Acetylcy steine and Metamizole may falsely depress this assay.Serum Triglycerides Reference Interval Normal <150 mg/dL Borderline high 150 - 199 mg/dL High 200 - 499 mg/dL Very High > or = 500 mg/dL Direct bilirubinOrdered By: Tanner Granger on 06-25-2023 Bilirubin.direct [Mass/Vol] 0.12 mg/dL 0.00-0.30 [facility] Laboratory - Chemistry and C hemistry - challengeOrdered By: Tanner Granger on 06-25-2023 ALP [Catalytic activity/Vol] 69 U/L 45-117 [facility] ALT [Catalytic activity/Vol] 33 U/L 16-61 [facility] Cholesterol in HDL [Mass/Vol] 37 mg/dL >40 [facility] Comment on above: The drugs N-Acetylcy steine and Metamizole may falsely depress this assay. Reference Range HDL <40 mg/dL Low HDL Cholesterol HDL >or= 60 mg/dL High HDL Cholesterol Cholesterol in LDL [Mass/Vol] 41 mg/dL 0-130 [facility] Globulin (S) [Mass/Vol] 3.4 g/dL 2.2-4.2 [facility] No Panel InformationOrdered By: Tanner Granger on 06-25-2023 VLDL Cholesterol 36 mg/dL 5-40 [facility] Thin prep Papanicolaou smear with manual screeningOrdered By: Tanner Granger on 06-25-2023 Thin prep Papanicolaou smear with manual screening 3.8 g/dL 3.2-5.0 [facility] Thin prep Papanicolaou smear with manual screening 24 U/L 15-37 [facility] Basophil percentageOrdered B y: Tanner Granger on 08-27-2022 Bilirubin [Mass/Vol] 0.50 mg/dL 0.20-1.00 [facility] Comment on above: For patients on eltr ombopag therapy, use of Dimension [place] TBIL is not recommended. Cholesterol [Mass/Vol] 94 mg/dL <200 [facility] Comment on above: <200 mg/dL Desirable 200-240 mg/dL Borderline >240 mg/dL High Risk Protein [Mass/Vol] 6.7 g/dL 6.4-8.2 [facility] Triglyceride [Mass/Vol] 148 mg/dL <199 [facility] Comment on above: The drugs N-Acetylcy steine and Metamizole may falsely depress this assay.Serum Triglycerides Reference Interval Normal <150 mg/dL Borderline high 150 - 199 mg/dL High 200 - 499 mg/dL Very High > or = 500 mg/dL Direct bilirubinOrdered By: Tanner Granger on 08-27-2022 Bilirubin.direct [Mass/Vol] 0.13 mg/dL 0.00-0.30 [facility] Laboratory - Chemistry and C hemistry - challengeOrdered By: Tanner Granger on 08-27-2022 ALP [Catalytic activity/Vol] 59 U/L 45-117 [facility] ALT [Catalytic activity/Vol] 26 U/L 16-61 [facility] Globulin (S) [Mass/Vol] 3.1 g/dL 2.2-4.2 [facility] Serum or plasma albumin meron urement (mass/volume)Ordered By: Tanner Granger on 08-27-2022 Albumin [Mass/Vol] 3.6 g/dL 3.2-5.0 [facility] Serum or plasma cholesterol in HDL measurement (mass/volume)Ordered By: Tanner Granger on 08-27-2022 Cholesterol in HDL [Mass/Vol] 36 mg/dL >40 [facility] Comment on above: The drugs N-Acetylcy steine and Metamizole may falsely depress this assay. Reference Range HDL <40 mg/dL Low HDL Cholesterol HDL >or= 60 mg/dL High HDL Cholesterol Serum or plasma cholesterol in VLDL measurement (mass/volume)Ordered By: Tanner Granger on 08-27-2022 Cholesterol in VLDL [Mass/Vol] 30 mg/dL 5-40 [facility] Serum or plasma low density lipoprotein (LDL) cholesterol measurement (mass/volume)Ordered By: Tanner Granger on 08-27-2022 Cholesterol in LDL [Mass/Vol] 28 mg/dL 0-130 [facility] Thin prep Papanicolaou smear with manual screeningOrdered By: Tanner Granger on 08-27-2022 Thin prep Papanicolaou smear with manual screening 16 U/L 15-37 [facility] Basophil percentageon 2021 Chloride [Moles/Vol] 109 mmol/L 98-107 [facility] Work Phone: Glucose [Mass/Vol] 97 mg/dL 74-106 [facility] Work Phone: Potassium [Moles/Vol] 5.0 mmol/L 3.5-5.1 [facility] Work Phone: Sodium [Moles/Vol] 140 mmol/L 136-145 [facility] Work Phone: [phone] WBC (Bld) [#/Vol] 8.7 10*3/uL 4.4-11.0 [facility] Work Phone: [phone] Blood erythrocytes count (nu mber/volume)on 12-22-2021 RBC (Bld) [#/Vol] 4.30 10*6/uL 4.6-6.2 [facility] Work Phone: [phone] Blood hemoglobin measurement (mass/volume)on 12-22-2021 Hemoglobin (Bld) [Mass/Vol] 14.2 g/dL 13.0-16.5 [facility] Work Phone: [phone] Blood platelet mean volumeon 12-22-2021 Platelet mean volume (Bld) [Entitic vol] 10.0 fL 6.2-12.0 [facility] Work Phone: Determination of erythrocyte mean corpuscular volume (MCV)on 12-22-2021 MCV (RBC) [Entitic vol] 100.2 fL 80-94 [facility] Work Phone: [phone] Hematocrit Auto (Bld) [Volum e fraction]on 12-22-2021 Hematocrit (Bld) [Volume fraction] 43.1 % 40-54 [facility] Work Phone: [phone] INR in Blood by Coagulation assayon 12-22-2021 INR Coag (Bld) [Relative time] 1.0 {INR} [facility] Work Phone: [phone] Laboratory - Chemistry and C hemistry - challengeon 12-22-2021 CO2 [Moles/Vol] 27.0 mmol/L 21.0-32.0 [facility] Work Phone: [phone] Urea nitrogen/Creatinine [Mass ratio] 19.3 mg/mg 10-20 [facility] Work Phone: [phone] Laboratory - Coagulationon 0 12-22-2021 aPTT Coag (Bld) [Time] 22.8 s 24.1-36.2 [facility] Work Phone: PT Coag (PPP) [Time] 13.3 s 11.7-14.9 [facility] Work Phone: Laboratory - Hematology and Cell countson 12-22-2021 Erythrocyte distribution width (RBC) [Entitic vol] 46.7 fL 35.1-43.9 [facility] Work Phone: Erythrocyte distribution width (RBC) [Ratio] 12.5 % 11.6-14.6 [facility] Work Phone: MCH (RBC) [Entitic mass] 33.0 pg 27.0-32.0 [facility] Work Phone: MCHC Auto (RBC) [Mass/Vol]on 12-22-2021 MCHC (RBC) [Mass/Vol] 32.9 g/dL 32-36 [facility] Work Phone: No Panel Informationon 12-22 Estimated GFR (MDRD) Amer 80 mL/min >60 [facility] Work Phone: Comment on above: GFR Calc Estimated GFR (MDRD) Non-Af Amer 66 mL/min >60 [facility] Work Phone: Comment on above: Non- GFR Calc Platelets bldon 12-22-2021 Platelets (Bld) [#/Vol] 284 10*3/uL 150-450 [facility] Work Phone: Serum or plasma calcium meron urement (mass/volume)on 12-22-2021 Calcium [Mass/Vol] 9.3 mg/dL 8.5-10.1 [facility] Work Phone: Serum or plasma creatinine m easurement (mass/volume)on 12-22-2021 Creatinine [Mass/Vol] 1.19 mg/dL 0.70-1.30 [facility] Work Phone: Comment on above: The validity of the calculated GFR & GFRAA in patients over 70 years has not been determined. Clinical correlation is essential. Serum or plasma urea nitroge n measurement (mass/volume)on 12-22-2021 Urea nitrogen [Mass/Vol] 23 mg/dL 7-18 [facility] Work Phone: Thin prep Papanicolaou smear with manual screeningon 12-22-2021 Thin prep Papanicolaou smear with manual screening 4 5-15 [facility] Work Phone: Basophil percentageon 2021 Bilirubin [Mass/Vol] 0.40 mg/dL 0.20-1.00 [facility] Work Phone: Comment on above: For patients on eltr ombopag therapy, use of Dimension [place] TBIL is not recommended. Cholesterol [Mass/Vol] 111 mg/dL <200 [facility] Work Phone: Comment on above: <200 mg/dL Desirable 200-240 mg/dL Borderline >240 mg/dL High Risk Protein [Mass/Vol] 7.2 g/dL 6.4-8.2 [facility] Work Phone: Triglyceride [Mass/Vol] 152 mg/dL <199 [facility] Work Phone: Comment on above: The drugs N-Acetylcy steine and Metamizole may falsely depress this assay.Serum Triglycerides Reference Interval Normal <150 mg/dL Borderline high 150 - 199 mg/dL High 200 - 499 mg/dL Very High > or = 500 mg/dL Direct bilirubinon 2 Bilirubin.direct [Mass/Vol] 0.11 mg/dL 0.00-0.30 [facility] Work Phone: Laboratory - Chemistry and C hemistry - challengeon 10-24-2021 ALP [Catalytic activity/Vol] 59 U/L 45-117 [facility] Work Phone: ALT [Catalytic activity/Vol] 30 U/L 16-61 [facility] Work Phone: Globulin (S) [Mass/Vol] 3.4 g/dL 2.2-4.2 [facility] Work Phone: Serum or plasma albumin meron urement (mass/volume)on 10-24-2021 Albumin [Mass/Vol] 3.8 g/dL 3.2-5.0 [facility] Work Phone: Serum or plasma cholesterol in HDL measurement (mass/volume)on 10-24-2021 Cholesterol in HDL [Mass/Vol] 39 mg/dL >40 [facility] Work Phone: Comment on above: The drugs N-Acetylcy steine and Metamizole may falsely depress this assay. Reference Range HDL <40 mg/dL Low HDL Cholesterol HDL >or= 60 mg/dL High HDL Cholesterol Serum or plasma cholesterol in VLDL measurement (mass/volume)on 10-24-2021 Cholesterol in VLDL [Mass/Vol] 30 mg/dL 5-40 [facility] Work Phone: Serum or plasma low density lipoprotein (LDL) cholesterol measurement (mass/volume)on 10-24-2021 Cholesterol in LDL [Mass/Vol] 42 mg/dL 0-130 [facility] Work Phone: Thin prep Papanicolaou smear with manual screeningon 10-24-2021 Thin prep Papanicolaou smear with manual screening 14 U/L 15-37 [facility] Work Phone: Absolute lymphocyte counton 09-25-2021 Lymphocytes Auto (Unsp spec) [#/Vol] 2.19 10*3/uL 0.83-4.51 [facility] Work Phone: Basophil percentageon 2021 Basophils/100 WBC (Bld) 0.4 % 0-1 [facility] Work Phone: Bilirubin [Mass/Vol] 0.40 mg/dL 0.20-1.00 [facility] Work Phone: Comment on above: For patients on eltr ombopag therapy, use of Dimension [place] TBIL is not recommended. Chloride [Moles/Vol] 114 mmol/L 98-107 [facility] Work Phone: [phone] Eosinophils/100 WBC (Bld) 4.2 % 0-5 [facility] Work Phone: Glucose [Mass/Vol] 103 mg/dL 74-106 [facility] Work Phone: Comment on above: Fasting Glucose resu lt from 100 to 125 mg/dL suggests IMPAIRED HOMEOSTASIS per A.D.A. criteria. Neutrophils (Bld) [#/Vol] 3.5 10*3/uL 2.0-7.7 [facility] Work Phone: Neutrophils/100 WBC (Bld) 50.2 % 47-70 [facility] Work Phone: Potassium [Moles/Vol] 4.9 mmol/L 3.5-5.1 [facility] Work Phone: Protein [Mass/Vol] 7.2 g/dL 6.4-8.2 [facility] Work Phone: Sodium [Moles/Vol] 139 mmol/L 136-145 [facility] Work Phone: WBC (Bld) [#/Vol] 6.9 10*3/uL 4.4-11.0 [facility] Work Phone: Blood erythrocytes count (nu mber/volume)on 09-25-2021 RBC (Bld) [#/Vol] 4.04 10*6/uL 4.6-6.2 [facility] Work Phone: Blood hemoglobin measurement (mass/volume)on 09-25-2021 Hemoglobin (Bld) [Mass/Vol] 13.2 g/dL 13.0-16.5 [facility] Work Phone: Blood lymphocytes/100 leukoc yteson 09-25-2021 Lymphocytes/100 WBC (Bld) 31.7 % 19-41 [facility] Work Phone: Blood monocytes/100 leukocyt eson 09-25-2021 Monocytes/100 WBC (Bld) 13.2 % 0-10 [facility] Work Phone: Blood platelet mean volumeon 09-25-2021 Platelet mean volume (Bld) [Entitic vol] 10.0 fL 6.2-12.0 [facility] Work Phone: Determination of erythrocyte mean corpuscular volume (MCV)on 09-25-2021 MCV (RBC) [Entitic vol] 98.0 fL 80-94 [facility] Work Phone: [phone] Erythrocyte sedimentation ra raquel 09-25-2021 ESR (Bld) [Velocity] 10 mm/h 0-20 [facility] Work Phone: [phone] Hematocrit Auto (Bld) [Volum e fraction]on 09-25-2021 Hematocrit (Bld) [Volume fraction] 39.6 % 40-54 [facility] Work Phone: [phone] Laboratory - Chemistry and C hemistry - challengeon 09-25-2021 ALP [Catalytic activity/Vol] 62 U/L 45-117 [facility] Work Phone: ALT [Catalytic activity/Vol] 31 U/L 16-61 [facility] Work Phone: [phone] CO2 [Moles/Vol] 21.0 mmol/L 21.0-32.0 [facility] Work Phone: [phone] Globulin (S) [Mass/Vol] 3.3 g/dL 2.2-4.2 [facility] Work Phone: [phone] Urea nitrogen/Creatinine [Mass ratio] 21.4 mg/mg 10-20 [facility] Work Phone: Laboratory - Hematology and Cell countson 09-25-2021 Erythrocyte distribution width (RBC) [Entitic vol] 43.6 fL 35.1-43.9 [facility] Work Phone: [phone] Erythrocyte distribution width (RBC) [Ratio] 11.9 % 11.6-14.6 [facility] Work Phone: [phone] Immature granulocytes/100 WBC (Bld) 0.300 % 0.0-0.9 [facility] Work Phone: [phone] Comment on above: IG% - Immature Granu locytes (promyelocytes, myelocytes and metamyelocytes) > 1% indicates that a LEFT SHIFT is Present. MCH (RBC) [Entitic mass] 32.7 pg 27.0-32.0 [facility] Work Phone: Nucleated RBC/100 WBC (Bld) [Ratio] 0 % 0-5 [facility] Work Phone: MCHC Auto (RBC) [Mass/Vol]on 09-25-2021 MCHC (RBC) [Mass/Vol] 33.3 g/dL 32-36 [facility] Work Phone: No Panel Informationon 09-25 Estimated GFR (MDRD) Amer 64 mL/min >60 [facility] Work Phone: Comment on above: GFR Calc Estimated GFR (MDRD) Non-Af Amer 53 mL/min >60 [facility] Work Phone: Comment on above: Non- GFR Calc Platelets bldon 09-25-2021 Platelets (Bld) [#/Vol] 281 10*3/uL 150-450 [facility] Work Phone: Serum or plasma C reactive p rotein measurement (mass/volume)on 09-25-2021 CRP [Mass/Vol] 4.57 mg/L 0.0-3.0 [facility] Work Phone: Comment on above: C-Reactive Protein ( CRP) provides useful information for thediagnosis, therapy and monitoring of inflammatory processesand associated diseases. For the evaluation of Relative Riskfor Cardiovascular Disease, a High Sensitivity CRP (HSCRP)should be ordered. Serum or plasma albumin meron urement (mass/volume)on 09-25-2021 Albumin [Mass/Vol] 3.9 g/dL 3.2-5.0 [facility] Work Phone: Serum or plasma albumin/glob ulin mass ratioon 09-25-2021 Albumin/Globulin [Mass ratio] 1.2 {ratio} 0.9-2.4 [facility] Work Phone: Serum or plasma calcium meron urement (mass/volume)on 09-25-2021 Calcium [Mass/Vol] 8.8 mg/dL 8.5-10.1 [facility] Work Phone: Serum or plasma creatinine m easurement (mass/volume)on 09-25-2021 Creatinine [Mass/Vol] 1.45 mg/dL 0.70-1.30 [facility] Work Phone: Comment on above: The validity of the calculated GFR & GFRAA in patients over 70 years has not been determined. Clinical correlation is essential. Serum or plasma urea nitroge n measurement (mass/volume)on 09-25-2021 Urea nitrogen [Mass/Vol] 31 mg/dL 7-18 [facility] Work Phone: Thin prep Papanicolaou smear with manual screeningon 09-25-2021 Thin prep Papanicolaou smear with manual screening 17 U/L 15-37 [facility] Work Phone: [phone] Thin prep Papanicolaou smear with manual screening 4 5-15 [facility] Work Phone: Absolute lymphocyte counton 06-01-2021 Lymphocytes Auto (Unsp spec) [#/Vol] 2.83 10*3/uL 0.83-4.51 [facility] Work Phone: [phone] Basophil percentageon 2021 Basophils/100 WBC (Bld) 0.4 % 0-1 [facility] Work Phone: Bilirubin [Mass/Vol] 0.20 mg/dL 0.20-1.00 [facility] Work Phone: Comment on above: For patients on eltr ombopag therapy, use of Dimension [place] TBIL is not recommended. Chloride [Moles/Vol] 110 mmol/L 98-107 [facility] Work Phone: Eosinophils/100 WBC (Bld) 2.5 % 0-5 [facility] Work Phone: [phone] Glucose [Mass/Vol] 84 mg/dL 74-106 [facility] Work Phone: [phone] Neutrophils (Bld) [#/Vol] 7.3 10*3/uL 2.0-7.7 [facility] Work Phone: [phone] Neutrophils/100 WBC (Bld) 63.8 % 47-70 [facility] Work Phone: Potassium [Moles/Vol] 4.5 mmol/L 3.5-5.1 [facility] Work Phone: Protein [Mass/Vol] 7.1 g[facility]dL [facility]: Sodium [Moles/Vol] 138 mmol/L 136-145 [facility] Work Phone: WBC (Bld) [#/Vol] 11.5 10*3/uL 4.4-11.0 [facility] Work Phone: Blood erythrocytes count (nu mber/volume)on 06-01-2021 RBC (Bld) [#/Vol] 3.94 10*6/uL 4.6-6.2 [facility] Work Phone: Blood hemoglobin measurement (mass/volume)on 06-01-2021 Hemoglobin (Bld) [Mass/Vol] 12.9 g/dL 13.0-16.5 [facility] Work Phone: Blood lymphocytes/100 leukoc yteson 06-01-2021 Lymphocytes/100 WBC (Bld) 24.6 % 19-41 [facility] Work Phone: Blood monocytes/100 leukocyt eson 06-01-2021 Monocytes/100 WBC (Bld) 8.2 % 0-10 [facility] Work Phone: Blood platelet mean volumeon 06-01-2021 Platelet mean volume (Bld) [Entitic vol] 9.2 fL 6.2-12.0 [facility] Work Phone: Determination of erythrocyte mean corpuscular volume (MCV)on 06-01-2021 MCV (RBC) [Entitic vol] 99.0 fL 80-94 [facility] Work Phone: Erythrocyte sedimentation ra raquel 06-01-2021 ESR (Bld) [Velocity] 21 mm/h 0-20 [facility] Work Phone: Hematocrit Auto (Bld) [Volum e fraction]on 06-01-2021 Hematocrit (Bld) [Volume fraction] 39.0 % 40-54 [facility] Work Phone: [phone] Laboratory - Chemistry and C hemistry - challengeon 06-01-2021 ALP [Catalytic activity/Vol] 60 U/L 45-117 [facility] Work Phone: ALT [Catalytic activity/Vol] 38 U/L 16-61 [facility] Work Phone: CO2 [Moles/Vol] 21.0 mmol/L 21.0-32.0 [facility] Work Phone: [phone] Globulin (S) [Mass/Vol] 3.6 g/dL 2.2-4.2 [facility] Work Phone: [phone] Urea nitrogen/Creatinine [Mass ratio] 21.0 mg/mg 10-20 [facility] Work Phone: [phone] Laboratory - Hematology and Cell countson 06-01-2021 Erythrocyte distribution width (RBC) [Entitic vol] 47.4 fL 35.1-43.9 [facility] Work Phone: Erythrocyte distribution width (RBC) [Ratio] 13.0 % 11.6-14.6 [facility] Work Phone: Immature granulocytes/100 WBC (Bld) 0.500 % 0.0-0.9 [facility] Work Phone: [phone] Comment on above: IG% - Immature Granu locytes (promyelocytes, myelocytes and metamyelocytes) > 1% indicates that a LEFT SHIFT is Present. MCH (RBC) [Entitic mass] 32.7 pg 27.0-32.0 [facility] Work Phone: Nucleated RBC/100 WBC (Bld) [Ratio] 0 % 0-5 [facility] Work Phone: MCHC Auto (RBC) [Mass/Vol]on 06-01-2021 MCHC (RBC) [Mass/Vol] 33.1 g/dL 32-36 [facility] Work Phone: No Panel Informationon 06-01 Estimated GFR (MDRD) Amer 76 mL/min >60 [facility] Work Phone: Comment on above: GFR Calc Estimated GFR (MDRD) Non-Af Amer 63 mL/min >60 [facility] Work Phone: Comment on above: Non- GFR Calc Platelets bldon 06-01-2021 Platelets (Bld) [#/Vol] 302 10*3/uL 150-450 [facility] Work Phone: Qualitative QuantiFERON-TB g old in tube teston 06-01-2021 M. tuberculosis tuberculin stim IFN-g Ql (Bld) 0.02 IU/mL . [facility] Work Phone: Serum or plasma C reactive p rotein measurement (mass/volume)on 06-01-2021 CRP [Mass/Vol] 7.40 mg/L 0.0-3.0 [facility] Work Phone: Comment on above: C-Reactive Protein ( CRP) provides useful information for thediagnosis, therapy and monitoring of inflammatory processesand associated diseases. For the evaluation of Relative Riskfor Cardiovascular Disease, a High Sensitivity CRP (HSCRP)should be ordered. Serum or plasma albumin meron urement (mass/volume)on 06-01-2021 Albumin [Mass/Vol] 3.5 g/dL 3.2-5.0 [facility] Work Phone: Serum or plasma albumin/glob ulin mass ratioon 06-01-2021 Albumin/Globulin [Mass ratio] 1.0 {ratio} 0.9-2.4 [facility] Work Phone: Serum or plasma calcium meron urement (mass/volume)on 06-01-2021 Calcium [Mass/Vol] 8.5 mg/dL 8.5-10.1 [facility] Work Phone: Serum or plasma creatinine m easurement (mass/volume)on 06-01-2021 Creatinine [Mass/Vol] 1.24 mg/dL 0.70-1.30 [facility] Work Phone: Comment on above: The validity of the calculated GFR & GFRAA in patients over 70 years has not been determined. Clinical correlation is essential. Serum or plasma urea nitroge n measurement (mass/volume)on 06-01-2021 Urea nitrogen [Mass/Vol] 26 mg/dL 7-18 [facility] Work Phone: Thin prep Papanicolaou smear with manual screeningon 06-01-2021 Thin prep Papanicolaou smear with manual screening 19 U/L 15-37 [facility] Work Phone: Thin prep Papanicolaou smear with manual screening 7 5-15 [facility] Work Phone: Thin prep Papanicolaou smear with manual screening Comment . [facility] Work Phone: Comment on above: The QuantiFERON-TB G old Plus result is determined bysubtracting the Nil value from either TB antigen (Ag) tube.The mitogen tube serves as a control for the test. Thin prep Papanicolaou smear with manual screening 0.02 IU/mL . [facility] Work Phone: Thin prep Papanicolaou smear with manual screening 0.01 IU/mL . [facility] Work Phone: Thin prep Papanicolaou smear with manual screening > 10.00 IU/mL . [facility] Work Phone: Thin prep Papanicolaou smear with manual screening Negative Negative [facility] Work Phone: Comment on above: The specimen receive d for QuantiFERON testing was incubatedby the ordering institution. Specific procedures outlinedin our Directory of Services and in the package insert forthe QuantiFERON Gold (In Tube) test must be followed toenable for proper stimulation of cells for the productionof interferon gamma. Chemiluminescence immunoassaymethodologyPerformed at: [facility] [address] [id number] Director: Mahesh George PhD, Phone: [phone] Vital Signs Date Time Vital Sign Value Performing Clinician Toni ba 12-10-2024 11:42-0400 Body temperature 97.8 [degF] Dr. David Jacobo MD Work Phone: [phone] [place] [address] 12-10-2024 11:42-0400 Diastolic blood pressure 73 mm[Hg] Dr. David Jacobo MD Work Phone: [phone])801-426627 [place] [address] 12-10-2024 11:42-0400 Heart rate 89 /min Dr. David Jacobo MD Work Phone: [phone])569-568593 [place] [address] 12-10-2024 11:42-0400 Respiratory rate 16 /min Dr. David Jacobo MD Work Phone: [phone])794-319193 [place] [address] 12-10-2024 11:42-0400 SaO2% (BldA) [Mass fraction] 99 % Dr. David Jacobo MD Work Phone: [phone])756-445893 [place] [address] 12-10-2024 11:42-0400 Systolic blood pressure 148 mm[Hg] Dr. David Jacobo MD Work Phone: 0(762)860-151593 [place] [address] 12-10-2024 07:58-0400 Body height 177.[address] David Jacobo MD Work Phone: 9(546)876-675593 [place] [address] 12-10-2024 07:58-0400 Body mass index (BMI) [Ratio] 27.6 kg/m2 Dr. David Jacobo MD Work Phone: [phone])610-055693 [place] [address] 12-10-2024 07:58-0400 Body weight 87.[address] David Jacobo MD Work Phone: [phone])998-970193 [place] [address] 11-02-2024 14:25-0400 Body height 177.[address] David Jacobo MD Work Phone: [phone])549-631193 [place] [address] 11-02-2024 14:25-0400 Body mass index (BMI) [Ratio] 27.2 kg/m2 Dr. David Jacobo MD Work Phone: 3(560)025-596993 [place] [address] 11-02-2024 14:25-0400 Body weight 86.[address] David Jacobo MD Work Phone: [phone])342-993793 [place] [address] 11-02-2024 14:25-0400 Diastolic blood pressure 74 mm[Hg] Dr. David Jacobo MD Work Phone: [facility] 11-02-2024 14:25-0400 Heart rate 52 /min Dr. David Jacobo MD Work Phone: [facility] 11-02-2024 14:25-0400 Respiratory rate 14 /min Dr. David Jacobo MD Work Phone: [facility] 11-02-2024 14:25-0400 SaO2% (BldA) [Mass fraction] 96 % Dr. David Jacobo MD Work Phone: [facility] 11-02-2024 14:25-0400 Systolic blood pressure 120 mm[Hg] Dr. David Jacobo MD Work Phone: [facility] 12-12-2023 09:42-0400 Body temperature 99 [degF] Ilana Callow GENETIC COORDINATOR.CHAINMAN Work Phone: [facility] 12-12-2023 09:42-0400 Body weight 87.5 kg Ilana Callow GENETIC COORDINATOR.CHAINMAN Work Phone: [facility] 12-12-2023 09:42-0400 Diastolic blood pressure 68 mm[Hg] Ilana Callow GENETIC COORDINATOR.CHAINMAN Work Phone: [facility] 12-12-2023 09:42-0400 Heart rate 75 /min Ilana Callow GENETIC COORDINATOR.CHAINMAN Work Phone: [facility] 12-12-2023 09:42-0400 Respiratory rate 20 /min Ilana Callow GENETIC COORDINATOR.CHAINMAN Work Phone: [facility] 12-12-2023 09:42-0400 SaO2% (BldA) [Mass fraction] 95 % Ilana Callow GENETIC COORDINATOR.CHAINMAN Work Phone: [facility] 12-12-2023 09:42-0400 Systolic blood pressure 120 mm[Hg] Ilana Callow GENETIC COORDINATOR.CHAINMAN Work Phone: [facility] 08-19-2023 08:40-0400 Body temperature 97.1 [degF] Dr. David Jacobo Work Phone: [facility] 08-19-2023 08:40-0400 Diastolic blood pressure 73 mm[Hg] Dr. David Jacobo Work Phone: [facility] 08-19-2023 08:40-0400 Heart rate 55 /min Dr. David Jacobo Work Phone: [facility] 08-19-2023 08:40-0400 Respiratory rate 14 /min Dr. David Jacobo Work Phone: [facility] 08-19-2023 08:40-0400 SaO2% (BldA) [Mass fraction] 100 % Dr. David Jacobo Work Phone: [facility] 08-19-2023 08:40-0400 Systolic blood pressure 139 mm[Hg] Dr. David Jacobo Work Phone: [facility] 08-19-2023 04:35-0400 Body mass index (BMI) [Ratio] 28 kg/m2 Dr. David Jacobo Work Phone: [facility] 08-19-2023 04:35-0400 Body weight 88.[address] David Jacobo Work Phone: [facility] 08-17-2023 16:55-0400 Body height 177.[address] David Jacobo Work Phone: [facility] 08-17-2023 15:59-0400 SaO2% (BldA) [Mass fraction] 96 % Dr. David Jacobo Work Phone: [facility] 08-17-2023 15:45-0400 Body temperature 98.6 [degF] Dr. David Jacobo Work Phone: [facility] 08-17-2023 15:45-0400 Diastolic blood pressure 116 mm[Hg] Dr. David Jacobo Work Phone: [facility] 08-17-2023 15:45-0400 Heart rate 72 /min Dr. David Jacobo Work Phone: [facility] 08-17-2023 15:45-0400 Respiratory rate 16 /min Dr. David Jacobo Work Phone: [facility] 08-17-2023 15:45-0400 Systolic blood pressure 184 mm[Hg] Dr. David Jacobo Work Phone: [facility] 08-17-2023 15:39-0400 Body height 177.[address] David Jacobo Work Phone: [facility] 08-17-2023 15:39-0400 Body mass index (BMI) [Ratio] 28 kg/m2 Dr. David Jacobo Work Phone: [facility] 08-17-2023 15:39-0400 Body weight 88.[address] David Jacobo Work Phone: [facility] 08-15-2023 08:43-0400 Body temperature 97.8 [degF] Dr. David Jacobo Work Phone: [facility] 08-15-2023 08:43-0400 Diastolic blood pressure 67 mm[Hg] Dr. David Jacobo Work Phone: [facility] 08-15-2023 08:43-0400 Heart rate 56 /min Dr. David Jacobo Work Phone: [facility] 08-15-2023 08:43-0400 Respiratory rate 18 /min Dr. David Jacobo Work Phone: [facility] 08-15-2023 08:43-0400 SaO2% (BldA) [Mass fraction] 96 % Dr. David Jacobo Work Phone: [facility] 08-15-2023 08:43-0400 Systolic blood pressure 137 mm[Hg] Dr. David Jacobo Work Phone: [facility] 08-14-2023 14:53-0400 Body height 177.[address] David Jacobo Work Phone: [facility] 08-14-2023 14:53-0400 Body mass index (BMI) [Ratio] 27.8 kg/m2 Dr. David Jacobo Work Phone: [facility] 08-14-2023 14:53-0400 Body weight 88.[address] David Jacobo Work Phone: [facility] 08-14-2023 13:42-0400 Body temperature 97.9 [degF] Dr. David Jacobo Work Phone: [facility] 08-14-2023 13:42-0400 Diastolic blood pressure 77 mm[Hg] Dr. David Jacobo Work Phone: 8(444)[phone] [place] [address] 08-14-2023 13:42-0400 Heart rate 68 /min Dr. David Jacobo Work Phone: 8(070)553-146793 [place] [address] 08-14-2023 13:42-0400 Respiratory rate 18 /min Dr. David Jacobo Work Phone: 3(076)152-300808 [address] 08-14-2023 13:42-0400 SaO2% (BldA) [Mass fraction] 97 % Dr. David Jacobo Work Phone: [facility] 08-14-2023 13:42-0400 Systolic blood pressure 152 mm[Hg] Dr. David Jacobo Work Phone: 6(024)958-283208 [address] 08-14-2023 09:06-0400 Body height 177.[address] David Jacobo Work Phone: [facility] 08-14-2023 09:06-0400 Body mass index (BMI) [Ratio] 28.1 kg/m2 Dr. David Jacobo Work Phone: [facility] 08-14-2023 09:06-0400 Body weight 88.[address] David Jacobo Work Phone: [phone] [address] 08-13-2023 08:11-0400 Body mass index (BMI) [Ratio] 28.7 kg/m2 Dr. David Jacobo Work Phone: [facility] 08-13-2023 08:11-0400 Body temperature 97.8 [degF] Dr. David Jacobo Work Phone: [facility] 08-13-2023 08:11-0400 Body weight 90.[address] David Jacobo Work Phone: [facility] 08-13-2023 08:11-0400 Diastolic blood pressure 72 mm[Hg] Dr. David Jacobo Work Phone: [facility] 08-13-2023 08:11-0400 Heart rate 75 /min Dr. David Jacobo Work Phone: [facility] 08-13-2023 08:11-0400 Respiratory rate 16 /min Dr. David Jacobo Work Phone: [facility] 08-13-2023 08:11-0400 SaO2% (BldA) [Mass fraction] 96 % Dr. David Jacobo Work Phone: [facility] 08-13-2023 08:11-0400 Systolic blood pressure 132 mm[Hg] Dr. David Jacobo Work Phone: [facility] 08-02-2023 12:53-0400 Body mass index (BMI) [Ratio] 29 kg/m2 Dr. David Jacobo Work Phone: [facility] 08-02-2023 12:53-0400 Body weight 91.[address] David Jacobo Work Phone: [facility] 08-02-2023 12:53-0400 Diastolic blood pressure 77 mm[Hg] Dr. David Jacobo Work Phone: [facility] 08-02-2023 12:53-0400 Heart rate 56 /min Dr. David Jacobo Work Phone: [facility] 08-02-2023 12:53-0400 Respiratory rate 16 /min Dr. David Jacobo Work Phone: [facility] 08-02-2023 12:53-0400 Systolic blood pressure 143 mm[Hg] Dr. David Jacobo Work Phone: [facility] 06-17-2023 13:36-0500 Body height 177.[address] Daivd Jacobo Work Phone: [facility] 06-17-2023 13:36-0500 Body mass index (BMI) [Ratio] 29.5 kg/m2 Dr. David Jacobo Work Phone: [facility] 06-17-2023 13:36-0500 Body weight 93.[address] David Jacobo Work Phone: [facility] 06-17-2023 13:36-0500 Diastolic blood pressure 77 mm[Hg] Dr. David Jacobo Work Phone: [facility] 06-17-2023 13:36-0500 Heart rate 57 /min Dr. David Jacobo Work Phone: [facility] 06-17-2023 13:36-0500 Respiratory rate 18 /min Dr. David Jacobo Work Phone: [facility] 06-17-2023 13:36-0500 SaO2% (BldA) [Mass fraction] 97 % Dr. David Jacobo Work Phone: [facility] 06-17-2023 13:36-0500 Systolic blood pressure 146 mm[Hg] Dr. David Jacobo Work Phone: [facility] 06-08-2022 16:27-0500 Body height 177.[address] David Jacobo Work Phone: [facility] 06-08-2022 16:27-0500 Body mass index (BMI) [Ratio] 29 kg/m2 Dr. David Jacobo Work Phone: [facility] 06-08-2022 16:27-0500 Body weight 91.[address] David Jacobo Work Phone: [facility] 06-08-2022 16:27-0500 Diastolic blood pressure 88 mm[Hg] Dr. David Jacobo Work Phone: [facility] 06-08-2022 16:27-0500 Heart rate 60 /min Dr. David Jacobo Work Phone: [facility] 06-08-2022 16:27-0500 Respiratory rate 18 /min Dr. David Jacobo Work Phone: [facility] 06-08-2022 16:27-0500 SaO2% (BldA) [Mass fraction] 95 % Dr. David Jacobo Work Phone: [facility] 06-08-2022 16:27-0500 Systolic blood pressure 157 mm[Hg] Dr. David Jacobo Work Phone: [facility] 12-29-2021 07:41-0400 Body height 177.[address] David Jacobo Work Phone: [facility] Work Phone: 12-29-2021 07:41-0400 Body weight 83.[address] David Jacobo Work Phone: [facility] Work Phone: 12-28-2021 09:02-0400 Body mass index (BMI) [Ratio] 26.5 kg/m2 Dr. David Jacobo Work Phone: [facility] Work Phone: 11-18-2021 14:56-0400 Body height 177.[address] David Jacobo Work Phone: [facility] Work Phone: 11-18-2021 14:56-0400 Body mass index (BMI) [Ratio] 26.6 kg/m2 Dr. David Jacobo Work Phone: [facility] Work Phone: 11-18-2021 14:56-0400 Body weight 84.[address] David Jacobo Work Phone: [facility] Work Phone: 11-18-2021 14:56-0400 Diastolic blood pressure 60 mm[Hg] Dr. David Jacobo Work Phone: [facility] Work Phone: 11-18-2021 14:56-0400 Heart rate 60 /min Dr. David Jacobo Work Phone: [facility] Work Phone: 11-18-2021 14:56-0400 Respiratory rate 16 /min Dr. David Jacobo Work Phone: [facility] Work Phone: 11-18-2021 14:56-0400 Systolic blood pressure 124 mm[Hg] Dr. David Jacobo Work Phone: [facility] Work Phone: 06-02-2021 15:12-0500 Body height 177.[address] David Jacobo Work Phone: [facility] Work Phone: 06-02-2021 15:12-0500 Body mass index (BMI) [Ratio] 25.9 kg/m2 Dr. David Jacobo Work Phone: [facility] Work Phone: 06-02-2021 15:12-0500 Body weight 82.[address] David Jacobo Work Phone: [facility] Work Phone: 06-02-2021 15:12-0500 Diastolic blood pressure 77 mm[Hg] Dr. David Jacobo Work Phone: [facility] Work Phone: 06-02-2021 15:12-0500 Heart rate 58 /min Dr. David Jacobo Work Phone: [facility] Work Phone: 06-02-2021 15:12-0500 Respiratory rate 16 /min Dr. David Jacobo Work Phone: [facility] Work Phone: 06-02-2021 15:12-0500 Systolic blood pressure 133 mm[Hg] Dr. David Jacobo Work Phone: [facility] Work Phone: Encounters Encounter Date Encounter Type Care Provider Facility Start: 01-30-2025 ambulatory Vi Prieto [employer] [facility] Facili ty:[facility] Start: 01-03-2025 ambulatory David Jacobo Facility:[facility] Start: 12-31-2024 ambulatory David Jacobo [facility] Start: 12-11-2024 ambulatory David Jacobo Facility:[facility] Start: 12-11-2024 Non-patient / Non-visit Vi mitchell [employer] [facility] -[facility] Work Phone: Start: 12-10-2024 End: 12-10-2024 Emergency department patient visit Dr. David Jacobo MD Work Phone: -Emergency Department Work Phone: Start: 12-06-2024 End: 12-06-[address] David Jacobo MD Work Phone: -Cardiovascular Services Start: 12-06-2024 End: 12-06-2024 Patient encounter procedure Vi Prieto [employer] [facility] -[facility] Work Phone: Start: 12-06-2024 End: 12-06-2024 ambulatory Vi Prieto NP Facility:[facility] Start: 11-02-2024 End: 11-02-2024 Patient encounter procedure Vi Prieto [employer] -[facility] Work Phone: Start: 11-02-2024 End: 11-02-[address] David Jacobo MD Work Phone: -[facility] Start: 07-27-2024 End: 07-27-[address] David Jacobo MD -[facility] Start: 07-27-2024 End: 07-27-2024 ambulatory David Jacobo Facility:[facility] Start: 05-19-2024 End: 05-19-2024 ambulatory David Jacobo Facility:[facility] Start: 05-09-2024 End: 05-09-2024 ambulatory David Jacobo Facility:[facility] Start: 03-30-2024 End: 03-30-2024 ambulatory David Jacobo Facility:[facility] Start: 12-13-2023 End: 12-13-2023 Telephone encounter Erica Saha GENETIC COORDINATOR.CHAINMAN Work Phone: [facility] Comment on above: Results Start: 12-12-2023 End: 12-12-2023 ambulatory DAVID JACOBO Facility:[facility] Start: 12-12-2023 End: 12-12-2023 Patient encounter procedure Ilana Sanabria GENETIC COORDINATOR.CHAINMAN Work Phone: [facility] Comment on above: Acute cough (Primary Dx); Sorethroat Start: 08-19-2023 Non-patient / Non-visit Dr. Italo Jacobo Work Phone: [facility] Work Phone: Start: 08-18-2023 Non-patient / Non-visit Dr. Italo Jacobo Work Phone: [facility] Start: 08-18-2023 Non-patient / Non-visit Dr. Italo Jacobo Work Phone: [facility] Work Phone: Start: 08-17-2023 Non-patient / Non-visit Dr. Italo Jacobo Work Phone: [facility] Start: 08-17-2023 End: 08-19-2023 Evaluation and management of inpatient Dr. David Jacobo Work Phone: [facility]-Intensive Care Unit Work Phone: Start: 08-16-[address] David Jacobo Work Phone: [facility]-Laboratory, Specimen Work Phone: Start: 08-16-2023 End: 08-16-[address] David Jacobo Work Phone: [facility] Work Phone: Start: 08-15-2023 Non-patient / Non-visit Dr. Italo Jacobo Work Phone: [facility] Work Phone: Start: 08-14-2023 Non-patient / Non-visit Dr. Italo Jacobo Work Phone: [facility] Work Phone: Start: 08-14-2023 End: 08-15-2023 Evaluation and management of inpatient Dr. David Jacobo Work Phone: [facility]-Medical Surgical 3 Work Phone: Start: 08-13-2023 End: 08-13-[address] David Jacobo Work Phone: [facility] Work Phone: Start: 08-02-2023 End: 08-02-[address] David Jacobo Work Phone: [facility] Work Phone: Start: 07-22-2023 End: 07-22-[address] David Jacobo Work Phone: [facility] Work Phone: Start: 07-22-2023 End: 07-22-[address] David Jacobo Work Phone: [facility]patient [facility] Ultrasound Work Phone: Start: 06-25-2023 End: 06-25-[address] David Jacobo Work Phone: [facility] Work Phone: Start: 06-25-2023 End: 06-25-[address] David Jacobo Work Phone: [facility]-Laboratory Work Phone: Start: 06-17-2023 End: 06-17-[address] David Jacobo Work Phone: [facility] Work Phone: Start: 06-10-2023 End: 06-10-2023 ambulatory [facility] Work Phone: Start: 06-10-2023 End: 06-10-2023 Patient encounter procedure [facility]-Cat Scan, [facility] Work Phone: Start: 06-03-2023 End: 06-03-2023 ambulatory [facility] Work Phone: Start: 06-03-2023 End: 06-03-2023 Patient encounter procedure [facility]-Outpatient Breast Imaging Work Phone: Start: 12-16-2022 End: 01-24-2023 ambulatory DAVID JACOBO MD Facility:[facility] Start: 12-16-2022 End: 01-24-2023 Physical therapy management ADDIE ONTIVEROS MD [facility] Start: 09-29-2022 End: 09-29-[address] David Jacobo Work Phone: [facility] Work Phone: Start: 09-29-2022 End: 09-29-[address] David Jacobo Work Phone: [facility]-MRI - [facility] Start: 08-27-2022 End: 08-27-[address] David Jacobo Work Phone: [facility] Work Phone: Start: 08-27-2022 End: 08-27-[address] David Jacobo Work Phone: [facility]-Laboratory Start: 06-08-2022 End: 06-08-[address] David Jacobo Work Phone: [facility] Start: 12-29-2021 End: 12-29-2021 Admission to same day surgery center Dr. David Jacobo Work Phone: [facility]/Special Procedures Start: 12-29-2021 End: 12-29-[address] David Jacobo Work Phone: [facility] Work Phone: Start: 12-28-2021 Non-patient / Non-visit Dr. Italo Jacobo Work Phone: [facility] Start: 12-22-2021 End: 12-22-[address] David Jacobo Work Phone: [facility] Start: 12-02-2021 Non-patient / Non-visit Dr. Italo Jacobo Work Phone: [facility] Start: 12-02-2021 End: 12-02-[address] David Jacobo Work Phone: [facility] Work Phone: Start: 12-02-2021 End: 12-02-[address] David Jacobo Work Phone: [facility]-Cardiovascular Services Start: 11-18-2021 End: 11-18-[address] David Jacobo Work Phone: [facility] Start: 10-24-2021 End: 10-24-2021 [facility] Start: 09-25-2021 End: 09-25-[address] David Jacobo Work Phone: [facility] Start: 06-02-2021 End: 06-02-[address] David Jacobo Work Phone: [facility] [facility] Start: 06-01-2021 End: 06-01-[address] David Jacobo Work Phone: [facility] Procedures Date Procedure Procedure Detail Performing Clinician Start: 12-10-[address] David Jacobo MD Work Phone: Start: 12-10-2024 Plain x-ray of elbow Dr Joselin Jacobo MD Work Phone: Start: 12-06-2024 Radionuclide imaging of perfusion of myocardium under exercise stress Dr. David Jacobo MD Work Phone: Start: 07-27-2024 Assay of prostate sp ecific [...] DTaP,Tdap,Td Vaccine (2 - Td or Tdap) [facility] Start: 12-10-2024 [facility] Start: 11-02-2024 Evaluation of diagno stic study results [facility] Start: 12-12-2023 End: 12-26-2023 COVID & INFLUENZA A/B & RSV PCR, ROUTINE COVID & INFLUENZA A/B & RSV PCR, ROUTINE Microbiology Routine Acute cough Sorethroat Expected: 12/12/2023, Expires: 12/26/2023 [facility] Work Phone: Comment on above: Expected: 12/12/2023 , Expires: 12/26/2023 Start: 12-11-2023 Covid-19 Vaccine () Covid-19 Vaccine () [facility] Start: 12-11-2023 Influenza vaccination Influenza Vacc ine (#1) [facility] Start: 08-19-2023 Patient referral [facility] Work Phone: Start: 08-19-2023 Patient discharge [facility] Start: 08-18-2023 Care planning and pr oblem solving actions [facility] Start: 08-17-2023 Following clinical pathway protocol [facility] Start: 08-17-2023 Ambulation without limitation [facility] Start: 08-17-2023 Cardiac monitoring [facility] Start: 08-17-2023 Cardiac rehabilitati on - phase 1 [facility] Start: 08-17-2023 Cardiac rehabilitati on - phase 2 [facility] Start: 08-17-2023 Notification of physician [facility] Start: 08-17-2023 Oxygen therapy [facility] Start: 08-17-2023 Patient discharge [facility] Start: 08-17-2023 Provision of activit y privileges [facility] Start: 08-17-2023 Pulse taking [facility] Start: 08-17-2023 Systemic arterial pressure monitoring [facility] Start: 08-17-2023 Taking patient vital signs [facility] Start: 08-17-2023 Vascular disease ris k assessment [facility] Start: 08-17-2023 Vital signs measurements [facility] Start: 08-17-2023 Admission procedure [facility] Start: 08-17-2023 Catheterization of l eft heart [facility] Start: 08-17-2023 Hospital admission, emergency, from emergency room, medical nature [facility] Start: 08-17-2023 End: 08-17-2023 [facility] Start: 08-15-2023 Patient discharge [facility] Start: 08-14-2023 End: 08-14-2023 [facility] Start: 08-14-2023 Following clinical pathway protocol [facility] Start: 08-14-2023 Ambulation without limitation [facility] Start: 08-14-2023 Assessment of risk o f venous thromboembolism [facility] Start: 08-14-2023 Insertion of cathete r into peripheral vein [facility] Start: 08-14-2023 Providing care accor ding to standard [facility] Start: 08-14-2023 Referral to ear, nos e and throat service [facility] Start: 08-14-2023 Microbial culture, routine Wound Culture [facility] Start: 08-14-2023 Microscopic observat ion [Identifier] in Unspecified specimen by Gram stain [facility] Start: 08-14-2023 Wound Culture Wound Culture [facility] Start: 08-14-2023 Verification routine [facility] Start: 08-14-2023 Admission procedure [facility] Start: 08-14-2023 Hospital admission, emergency, from emergency room, medical nature [facility] Start: 2020 RSV Vaccine (1 - 1-d ose 60+ series) RSV Vaccine (1 - 1-dose 60+ series) [facility] Start: 2015 Prostate specific an tigen measurement Prostate Cancer Screening Discussion [facility] Start: 2010 Shingrix Vaccine (1 of 2) Rubalcava grix Vaccine (1 of 2) [facility] Start: 2005 Diabetes Screening Diabetes Screenin g [facility] Start: 2005 Screening for malign ant neoplasm of colon [facility] Start: 1995 Lipid panel Lipid Screening [facility] Start: 1978 Anxiety Screening Anxiety Screening [facility] Start: 1978 Depression Screening Depression Scre ening [facility] Start: 1978 Hepatitis C screening Hepatitis C Sc reening [facility] Start: 1978 HIV screening HIV Screening [facility] Bacteria identified in Wound by Culture [facility] Lipid 1996 panel - S patsy or Plasma [facility] Patient Education ED Thrombophle bitis, Superficial [facility] Work Phone: Patient referral [facility] Work Phone: Radionuclide imaging of perfusion of myocardium under exercise stress [facility] Immunizations Immunization Date Immunization Notes Care Provider Dariel cox 02-11-2010 tetanus and diphther ia toxoids, adsorbed, preservative free, for adult use (2 Lf of tetanus toxoid and 2 Lf of diphtheria toxoid) Ilana Sanabria GENETIC COORDINATOR.CHAINMAN Work Phone: [facility] Payers Date Payer Category Payer Self-pay [id number] 2020 Unknown [employer] P[employer] [id number] 2020-Present [phone] [address] [place] [address] PPO [id number] 2020 Unknown [id number] 2015 Private Health Insurance [facility] [id number] 1960 Unknown [id number] Unknown [id number] .462 Unknown [id number] .462 Unknown [id number] [id number] .462 Unknown [id number] [id number] .462 Unknown [id number] 2.16.840.1.304848.3.579.2 .462 Unknown [id number] 2.16.840.1.677652.3.579.2 .462 Unknown [id number] 2.16.840.1.043577.3.579.2 .462 Unknown [id number] 2.16.840.1.296932.3.579.2 .462 Unknown [id number] 2.16.840.1.087775.3.579.2 .462 Unknown [id number] 2.16.840.1.237434.3.579.2 .462 Unknown [id number] [id number] .462 Unknown [id number] [id number] .462 Social History Date Type Detail Facility Start: 06-02-2021 End: 08-17-2023 Tobacco smoking status [facility] Unknown if ever smoked [facility] Start: 1960 Sex Assigned At Male W [facility] Start: 12-12-2023 End: 12-10-2024 Tobacco smoking status IDIS Ex-smoker [facility] History of tobacco use Current smoker [facility] History of tobacco use Cigarette Smoker [facility] Start: 12-12-2023 Cigarettes smoked current (pack per day) - Reported 1.5 [facility] History of tobacco use Passive smoker [facility] Start: 12-12-2023 Tobacco use and exposure Smokeless tobacco non-user [facility] Start: 12-12-2023 Alcoholic beverage intake Current drinker of alcohol (finding) [facility] Start: 12-12-2023 Tobacco use panel [facility] Start: 1960 Sex assigned at Not on file [facility] Medical Equipment Procedure Code Equipment Code Equipment Origin al Text Equipment Identifier Dates Drug-eluting coronary artery stent, icx-lahehucbdufqy-il lymer-coated [id number] [facility] Start: 08-18-2023 Goals Date Patient Goal Desired Activity /State Functional Status Date Assessment Result Facility 08-19-2023 Functional status Ambulates;Up ad chauncey [facility] Work Phone: 08-15-2023 Functional status Up ad chauncey [facility] Work Phone: 12-16-2022 Functional Status Home Living [...] Head impulse test(quick rotation): NTVOR cancellation: NT, [id number](norm 6 cm from nose): , Ocular motor testing: visual tracking grossly intact bilat Visual acuity: 20/15 Modified CTSIB: 15% impairment 2.2 Vestibular: Laureen hallpike: - [facility] Mental Status Date Assessment Result Facility 08-19-2023 Cognitive function Voice/Name [facility] Work Phone: 08-17-2023 Cognitive function Level Of Cons ciousness Awake;Alert;Appropriate [facility] Work Phone: 08-15-2023 Cognitive function Voice/Name [facility] Work Phone: Clinical Notes 11-09-2020 to 01-03-2025 Note Date & Type Note Facility 01-03-2025 Note [facility] Medical Records Department [address] [place] [address] History Physical Exam 01/03/25 1530 MR#: [id number] Acct: [id number] Name: ALLI KERR Rep #: [id number] : 1960 64 From: Sav Abrams MD PCP: Dr. David Jacobo MD Status:PRE [facility] Location: [facility] History and Physical Date of Admission: 01/30/25 This is a 64-year-old male who presents today for cardiac catheterization following an abnormal stress test. He has a history of coronary artery [...] gain. He does acknowledge occasional lightheadedness with "working hard". He denies dizziness, syncopal or near syncopal episodes, and headaches. Intake Vital Signs See EMR Allergies See EMR Medications See EMR [facility] Medical History Acute ST elevation myocardial infarction (STEMI) ( 08/17/23) Strep pharyngitis Abscess, peritonsillar Dyslipidemia 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 disease Breast mass, right History of left heart catheterization (LHC) ( 12/29/21) SOB (shortness of breath) Abnormal stress test Angina pectoris HLD (hyperlipidemia) Myalgia Tobacco abuse Essential hypertension Presence of stent in coronary artery ( 11/15/20) Atherosclerotic heart disease of [place] coronary artery without angina pectoris STEMI (ST [...] or neck pain Cardio Chest Pain: Yes Frequency: other Onset: exercise Location: left chest Palpitations: No Edema: None Muscle aches with walking: None Resp Respiratory: Positive for SOB with activity; Negative for SOB at rest or SOB orthopnea SOB lying down GI GI: Negative nausea, vomiting, heartburn, bloating, vomiting blood/hematemesis, bright, red blood in stools or black,tarry stools Musc Musc: Negative for muscle aches/ myalgia, muscle weakness, joint pain or balance problems Neuro Neuro: Positive for lightheadedness; Negative for dizziness, near syncope, syncope, orthostatic symptoms, frequent falls, headache(s), weakness, blurry vision or double vision Payam Hematologic/Lymphatic: Negative for easy bleeding or easy bruising Endo Endo: Negative for fatigue Cardiology Exam Const Appearance: cooperative, comfortable and no acute distress Nutritional Appearance: well nourished and overweight Orientation: alert and oriented x3 Head Head: normal to inspection Ears: hearing grossly normal bilaterally Nose: external nose normal Face and Sinus: face symmetric Eyes General: appearance normal, both eyes and all related structures Eyelids: eyelids normal Conjunctivae: conjunctivae normal Pupils: PERRL and pupil size EOM: EOM intact bilaterally Neck Neck: normal visual inspection and no JVD Carotids: Negative bruit Chest Chest inspection: normal inspection of the chest and normal respiratory effort Auscultation: Bilateral: Clear to Auscultation Cardio Palpation: normal PMI Rate: regular rate Rhythm: regular rhythm Heart sounds: S1 normal and S2 normal GI GI: normal to inspection and soft Neuro General: patient alert, patient awake and patient oriented x3 Skin Skin: no rashes or (more content not included)... [facility] 12-10-2024 Radiology Diagnostic study note [facility] Imaging Services [address] [place] [address] Elbow min 3 Views MR#: [id number] Acct: [id number] Name: ALLI KERR Rep #: [id number] : 1960 M 64 From: Zeyad Wilkes MD PCP: Dr. David Jacobo MD Status: REG ER Study:Elbow min 3 Views Date of Exam: Exam# [id number] Ordering Dr: David Myers DO PROCEDURE: ELBOW MIN 3 VIEWS 12/10/2024 REASON FOR EXAM: INJURY/PAIN TECHNIQUE: Procedure Code: RADEL Modality: DX Procedure: ELBOW MIN 3 VIEWS Laterality: Right COMPARISON: None FINDINGS: Bones: An AP and a true lateral were not provided. No definite fracture seen. Joints: Degenerative changes radiocapitellar, humeral ulnar and proximal radioulnar joints. Soft tissues: Soft tissues are unremarkable. RAD/Elbow min 3 Views IMPRESSION: Limited by positioning. Grossly, no acute abnormality. Degenerative changes. Reading Location: [facility] CC: Dr. David Myers DO; Dr. David Jacobo MD ~ Neurodiagnostic Tech: Signed [facility] 11-02-2024 Evaluation note Diagnosis Onset Date Resolution Essential hypertension chronic November 02, 2024 2:13pm Presence of stent in coronary artery November, chronic November 02, 2024 2:13pm Chest pain resolved November 02 2:13pm Dyslipidemia inactive November 02, 2 025 2:13pm [facility] Work Phone: 1(489) 527-491609-03-2024 Telephone encounter Note* Telephone Encounter - Prema Auguste RN - 12/13/2023 11:29 AM EDT Pt returned call and given provider's message below with verbalized understanding. Patient agreeable. [facility]09-03-2024 Miscellaneous Notes* Telephone Encounter - Prema Auguste RN - 12/13/2023 11:29 AM EDT Pt returned call and given provider's message below with verbalized understanding. Patient agreeable. * Telephone Encounter - Erica Saha APRN.CNP - 12/13/2023 10:07 AM EDT You tested positive for COVID-19. You can [...] days, such as taking additional steps for equipment or machinery cleaner air, hygiene, masks, physical distancing, and/or testing when you will be around other people indoors. You may be eligible for antiviral treatment. Please PCP office discuss your eligibility. Please contact us if your symptoms are worsening or not improving. Please advise patient [facility] Telephone encounter Note * Telephone Encounter - Erica Saha APRN.CNP - 12/13/2023 10:07 AM EDT You tested positive for COVID-19. You can [...] days, such as taking additional steps for equipment or machinery cleaner air, hygiene, masks, physical distancing, and/or testing when you will be around other people indoors. You may be eligible for antiviral treatment. Please PCP office discuss your eligibility. Please contact us if your symptoms are worsening or not improving. Please advise patient [facility] Work Phone: 1(154) 226-936209-02-2024 History of Present illness Narrative* Ilana Sanabria APRN.CNP - 12/12/2023 9:49 AM EDT Subjective HPI Alli presents with three day hx of of sore throat, cough and fever. He states he feels better today and no fever. He and his just returned from [place]. He is eating and drinking well. Deniesnausea, vomiting or loose stool. His also has [...] nostril once daily. Rinse mouth after use. triamterene-hydrochlorothiazide 37.5-25 mg per capsule Take 1 capsule by mouth once daily. (Patientnot taking: Reported on 12/12/2023) No family history [...] Ilana Sanabria APRN.MARIO ALBERTO documented in this encounterUniversity [facility]09-02-2024 NoteHNO ID: [id number] Author: ILANA SANABRIA APRN.MARIO ALBERTO Service: ? Author Type: Nurse Practitioner Type: Progress Notes Filed: 12/12/2023 09:59 Note Text: Sanjeev Merida presents with three day hx of of sore throat, cough and fever. He states he feels better today and no fever. He and his just returned from [place]. He is eating and drinking well. Denies [...] nostril once daily. Rinse mouth after use. triamterene-hydrochlorothiazide 37.5-25 mg per capsule Take 1 capsule [...] if symptoms persist or worsen Ilana Sanabria APRN.[facility]05-09-2024 Progress note Author Sav Abrams [facility] August 18, 2023 10:18am Note Date/Time August 18, 2023 10:18a m [facility] Medical Records Department [address] [place] [address] Progress Note - Cardiology 08/18/23 1017 MR#: [id number] Acct: [id number] Name: ALLI KERR Rep #:[id number] : 1960 63 From: Sav Abrams MD PCP: Dr. David Jacobo MD Status:ADM IN Location: ICU ICU10-1 Subjective Subjective Denies any complaints. No chest pains or shortness of breath. Objective Data Vital Signs: Vital Signs Temp Pulse Resp BP Pulse Ox O2 Del Method 97.8 F 55 L 15 117/61 99 Room Air 08/18/23 08:00 08/18/23 10:00 08/18/23 10:00 08/18/23 10:00 08/18/23 10:00 08/18/23 10:00 Oxygen Delivery Method Room Air Weight: [...] % (Auto) 66.3, Lymph % (Auto) 21.9, [place] % (Auto) 8.7, Eos % (Auto) 0.6, [...] % (Auto) 66.3, Lymph % (Auto) 21.9, [place] % (Auto) 8.7, Eos % (Auto) 0.6, [...] drug-eluting stent. Excellent results were noted with religion of WAI-3 flow. Continue aspirin lifelong. Continue clopidogrel. (2) 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 disease: PLAN: See #1 above. Aspirin, clopidogrel, statins. (3) Dyslipidemia: PLAN: Atorvastatin. (4) Essential hypertension: PLAN: Amlodipine and telmisartan. PLAN: Plan Home tomorrow if continues to be hemodynamically stable. 08/18/23 1018 <Electronically signed by Sav Abrams MD> Cosigner Signature (if applicable): CC: ~ Signed [facility] Work Phone: 1(552) 327-218805-09-2024 Progress note Author Dorene Rodriguez [facility] August 18, 2023 8:50am Note Date/Time August 18, 2023 7:25am [facility] Medical Records Department [address] [place] [address] Progress Note - Hospitalist 08/18/23 0710 MR#: [id number] Acct: [id number] Name: ALLI KERR Rep #:[id number] : 1960 63 From: Dorene Rodriguez DO PCP: Dr. David Jacobo MD Status:ADM IN Location: ICU ICU10-1 Reason for Visit Reason for Visit: Chest pain Subjective Subjective Mr. Kerr is a 63-year-old white male who presented to the emergency department at [facility] on 08/17/2023 with chest pain that started [...] 227. He was taken emergently to the [facility] and this revealed in-stent thrombosis in the [...] % (Auto) 66.3, Lymph % (Auto) 21.9, [place] % (Auto) 8.7, Eos % (Auto) 0.6, [...] with BELKYS to mid RPDA placed in [facility] on admission -Previous stent was placed in [...] -Full code Charges/Coding Visit Charges Inpatient E&M: 00429 Subs Hosp L2 08/18/23 0850 <Electronically signed by Dorene Rodriguez DO> Cosigner Signature (if applicable): CC: ~ Signed [facility] Work Phone: 1(227) 566-747105-09-2024 Discharge summary Author David Myers [facility] August 18, 2023 12:34am Note Date/Time August 17, 2023 3:52pm [facility] Medical Records Department [address] [place], [place] [address] [place] [address] Emergency Department Summary 08/17/23 MR#: [id number] Acct: [id number] Name: ALLI KERR Rep #:[id number] : 1960 63 From: David Walker PCP: [...] recently. CVD Risk Factors: Positive for Hypertension PFSH PFS Medical History Abnormal stress test Angina pectoris Atherosclerotic heart disease of [place] coronary artery without angina pectoris Breast mass, [...] He will see the patient in the [facility] Bead [facility]. Patient was given aspirin, heparin, and Brilinta. Pol[facility] Bead Molder was ready and the patient was taken [...] sinus rhythm with a rate of 73. MI interval was normal at 168 ms. QRS interval was normal at 90 ms. QTc interval was normal at 398 ms. [place] was normal at 66. There is ST elevation in leads II, III, and aVF. There are reciprocal changes in leads I, aVL, and V2 through V5. Prior EKG tracings: available for review Prior: Changed (The ST elevation is new compared to previous EKG dated 11/18/2021) Management Discussion w/another healthcare provider: Hospitalist and Lead Military Analyst Treatment and Re-Evaluation :: Patient was prepped for Polystyrene Bead Molder in the emergency department. Patient was transferred to the Polystyrene Bead Molder. Case was discussed with the hospitalist. She willadmit the patient to her service after patient goes to the [facility]ystyrene Bead [facility]. Patient understood and was agreeable with the [...] Provider] - Disposition Disposition: Acute Care [facility] What to do if you have Problems For any increased pain, shortness of breath, bleeding, nausea or vomiting, chestpain, or any unexpected problems, contact your Primary Care Provider. Call [facility] ([phone]) or report to the closest Emergency Room. Call 911 if necessary. 08/18/2333 <Electronically signed by David Myers DO> Cosigner Signature (if applicable): CC: Dr. David Jacobo MD ~ Signed [facility] Work Phone: 1(323) 389-459905-08-2024 History and physical note Author [facility] August 17, 2023 6:52pm Note Date/Time August 17, 2023 3:46pm [facility] Medical Records Department [address] [place] [address] History & Physical Exam 08/17/23 1546 MR#: [id number] Acct: [id number] Name: ALLI KERR Rep #:[id number] : 1960 63 From: Conchita Ty MD PCP: Dr. David Jacobo MD Status:ADM IN Location: ICU ICU10-1 HPI - General General Date of Admission: 08/17/23 Date of Service: 08/17/23 Chief Complaint: chest pain HPI Narrative ALLI KERR, is a 63 M with a [...] EKG done by EMSshowed inferior ST elevation [place]. STEMI alert was called. Patient was given aspirin and heparin as well as Brilinta in the ED and he was sent emergently to the [facility] for cardiac catheterization. Patient was seen in [...] to be managed for acute ST elevation [place]. 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 * Now presenting with ST elevation [place]. Management as above. * * #Right breast [...] elects to be full code. * Total daqq-do-lbfx time 17 minutes. Charges/Coding Visit Charges Inpatient E&M: 99627 Init Hosp L3 Procedures Hospitalists Procedures: 67774 Advncd Care Plan 30 Min 08/17/23 1852 <Electronically signed by Conchita Ty MD> Cosigner Signature (if applicable): CC: Dr. David Jacobo MD; Dr. Conchita Ty MD~ Signed [facility] Work Phone: 1(836) 144-130305-08-2024 Consult note Author Sav Abrams [facility] August 17, 2023 5:04pm Note Date/Time August 17, 2023 5:03pm [facility] Medical Records Department [address] [place] [address] Consultation - Cardiology 08/17/23 1657 MR#: [id number] Acct: [id number] Name: ALLI KERR Rep #:[id number] : 1960 63 From: Sav Abrams MD [...] drug-eluting stent. Excellent results were noted with religion of WAI-3 flow. Continue aspirin lifelong. Continue [...] infarction. Subsequently a STEMI alert was called. [facility] Medical History Abnormal stress test Angina pectoris Atherosclerotic heart disease of [place] coronary artery without angina pectoris Breast mass, [...] % (Auto) 66.3, Lymph % (Auto) 21.9, [place] % (Auto) 8.7, Eos % (Auto) 0.6, [...] % (Auto) 66.3, Lymph % (Auto) 21.9, [place] % (Auto) 8.7, Eos % (Auto) 0.6, [...] applicable): CC: Dr. David Jacobo MD~ Signed [facility] Work Phone: 1(218) 347-146805-06-2024 Progress note Author [employer] Lincoln [facility] August 15, 2023 8:39am Note Date/Time August 15, 2023 8:39am [facility] Medical Records Department [address] [place] [address] Progress Note 08/15/23 0836 MR#: [id number] Acct: [id number] Name: ALLI KERR Rep #:[id number] : 1960 63 From: Cisco Lincoln MD PCP: Dr. David Jacobo MD Status:ADM IN [id number] The patient is feeling better today. His right ear pain is gone. His throat is still "scratchy" but "150% better" AVss wbc =12 PE: voice normal uvula [...] Cosigner Signature (if applicable): CC: ~ Signed [facility] Work Phone: 1(181) 397-283905-05-2024 Discharge summary Author Nydia Rivers [facility] August 14, 2023 7:16pm Note Date/Time August 14, 2023 10:18a m [facility] Medical Records Department [address] [place] [address] Emergency Department Summary 08/14/23 MR#: [id number] Acct: [id number] Name: ALLI KERR Rep #:[id number] : 1960 63 From: Nydia Rivers MD PCP: Dr. David Jacobo MD Status:ADM IN [id number] H[facility] History of Present Illness Chief Complaint: Sore Throat Informant: patient Onset/Context/Timing Onset: Days (5 days) Context: Gradual Onset Narrative Narrative: Patient presents secondary to right ear and right throat pain for the past 5 days. He was on vacation in [place] at the time of onset. He had subjective fevers at the time but no way of checking his temperature. [facility] and diagnosed with strep pharyngitis. No swab was performed. Patient was started on prednisone and Pen-Vee K. Patient had increased pain and swelling today and presents to the emergency room. [facility] Medical History Abnormal stress test Angina pectoris Atherosclerotic heart disease of [place] coronary artery without angina pectoris Breast mass, [...] 89.7 H Lymph % (Auto) 5.8 L [place] % (Auto) 4.0 Eos % (Auto) 0.0 [...] Provider] - Disposition Disposition: Acute Care [facility] What to do if you have Problems For any increased pain, shortness of breath, bleeding, nausea or vomiting, chestpain, or any unexpected problems, contact your Primary Care Provider. Call [facility] ([phone]) or report to the closest Emergency Room. Call 911 if necessary. 08/14/231915 <Electronically signed by Nydia Rivers MD> Cosigner Signature (if applicable): CC: Dr. David Jacobo MD ~ Signed [facility] Work Phone: 1(105) 342-213005-05-2024 Progress note Author Cisco Lincoln [facility] August 14, 2023 4:04pm Note Date/Time August 14, 2023 4:04pm [facility] Medical Records Department [address] [place] [address] Progress Note 08/14/23 1557 MR#: [id number] Acct: [id number] Name: ALLI KERR Rep #:[id number] : 1960 63 From: Cisco Lincoln MD PCP: Dr. David Jacobo MD Status:ADM IN Location: [place] [address] Progress Note Asked to see the patient [...] test Angina pectoris Atherosclerotic heart disease of [place] coronary artery without angina pectoris Breast mass, [...] Cosigner Signature (if applicable): CC: ~ Signed [facility] Work Phone: 1([phone]) 340-613505-05-2024 History and physical note Author Eleno Quijano [facility] August 14, 2023 1:09pm Note Date/Time August 14, 2023 12:45p [facility] Medical Records Department [address] [place] [address] H&P Exam - Hospitalist 08/14/23 1238 MR#: [id number] Acct: [id number] Name: ALLI KERR Prema Rep #:[id number] : 1960 63 From: Eleno Quijano MD PCP: Dr. David Jacobo MD Status:REG ER Location: ED HPI - General General Date of Admission: 08/14/23 Date of Service: 08/14/23 Chief Complaint: Ear ache and sore throat HPI Narrative ALLI KERR, is a 63 M who presents [...] right breast hematoma from trauma at work [facility] Medical History Abnormal stress test Angina pectoris Atherosclerotic heart disease of [place] coronary artery without angina pectoris Breast mass, [...] 89.7 H, Lymph % (Auto) 5.8 L, [place] % (Auto) 4.0, Eos % (Auto) 0.0, [...] 16 minutes. Charges/Coding Visit Charges Inpatient E&M: 28538 Init Hosp L2 Procedures Hospitalists Procedures: 96384 Advncd Care Plan 30 Min 08/14/23 1309 <Electronically signed by Eleno Quijano MD> Cosigner Signature (if applicable): CC: Dr. Eleno Quijano MD; Dr. David Jacobo MD~ Signed [facility] Work Phone: 1(450) 941-984308-01-2021 Evaluation note* Diagnosis Onset Date Resolution Status Atherosclerotic heart diseas e of [place] coronary artery without angina pectoris acute Essential hypertension acute Myalgia acute Presence of stent in coronary artery November, acute [facility] Work Phone: [phone]) 942-346908-01-2021 Evaluation note* Diagnosis Onset Date Resolution Status 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 disease device 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 Dyslipidemia chronic Essential hypertension chron ic Presence of stent in coronary artery November, chronic Strep pharyngitis acute Abscess, peritonsillar acute [facility] Work Phone: 1(761) 286-105408-01-2021 Evaluation note* Diagnosis Onset Date Resolution Status Breast mass, right acute 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 disease device 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 Dyslipidemia chronic Essential hypertension chron ic Presence of stent in coronary artery November, chronic Strep pharyngitis acute Abscess, peritonsillar acute Breast mass, right acute Acute ST elevation myocardial infarction (STEMI) acute Essential hypertension [facility] Work Phone: 1(464) 333-841608-01-2021 Evaluation note* Diagnosis Onset Date Resolution Status Breast mass, right acute 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 disease device 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 Dyslipidemia chronic Essential hypertension chron ic Presence of stent in coronary artery November, chronic Strep pharyngitis acute Abscess, peritonsillar acute Breast mass, right acute Abscess, peritonsillar acute Acute ST elevation myocardial infarction (STEMI) acute Breast mass, right acute 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 disease device 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 Dyslipidemia chronic Essential hypertension [facility] Work Phone: 1(422) 854-292608-01-2021 Evaluation note* Diagnosis Onset Date Resolution Status Admit Date 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 disease chronic J meghana 2024 2:13pm Essential hypertension chronic Ju ly 2024 2:13pm Presence of stent in coronar y artery November, chronic November 02, 2024 2:13pm Chest pain resolved November 02 2:13pm Dyslipidemia inactive November 02, 2 025 2:13pm [facility] Work Phone: Consult note Author Sisi Burleson [facility] August 15, 2023 10:44am Note Date/Time August 15, 2023 10:44a [facility] Medical Records Department [address] [place] [address] Counseling Note - Pharmacy 08/15/23 1044 MR#: [id number] Acct: [id number] Name: ALLI KERR Rep #:[id number] : 1960 63 From: Sisi Burleson PCP: Dr. David Jacobo MD Status:ADM IN Y Location: [facility] [id number] Pharmacy [facility] Service has performed discharge [...] signed by Sisi Burleson> Date _ Sisi Ojedaigner Signature (if applicable): Date CC: ~ Signed [facility] Work Phone: Discharge summary Author Dorene Rodriguez [facility] August 15, 2023 10:19am Note Date/Time August 15, 2023 10:04a [facility] Medical Records Department [address] [place] [address] Discharge Summary 08/15/23 1004 MR#: [id number] Acct: [id number] Name: ALLI KERR Rep #:[id number] : 1960 63 From: Dorene Rodriguez DO PCP: Dr. David Jacobo MD Status:ADM IN Location: [facility] [id number] Providers Date of Admission: 08/14/23 Date of [...] white male who presents emergency department at [facility] on 08/14/2023 due to a earache and [...] 89.7 H, Lymph % (Auto) 5.8 L, [place] % (Auto) 4.0, Eos % (Auto) 0.0, [...] 88.4 H, Lymph % (Auto) 8.0 L, [place] % (Auto) 2.9, Eos % (Auto) 0.0, [...] Self Care Charges/Coding Visit Charges Inpatient E&M: 20586 Disch Hosp >30min 08/15/23 1019 <Electronically signed by Dorene Rodriguez DO> Cosigner Signature (if applicable): CC: Dr. David Jacobo MD; Dr. Dorene Rodriguez DO; Dr. Cisco Lincoln MD~ Signed [facility] Work Phone: Discharge summary Author Dorene Rodriguez [facility] August 19, 2023 11:29am Note Date/Time August 19, 2023 11:21 am [facility] Medical Records Department [address] [place] [address] Discharge Summary 08/19/23 1120 MR#: [id number] Acct: [id number] Name: ALLI KERR Rep #:[id number] : 1960 63 From: Dorene Rodriguez DO PCP: Dr. David Jacobo MD Status:ADM IN Location: [place] [address] Providers Date of Admission: 08/17/23 Date of Discharge: 08/19/23 Primary Care Physician: Dr. David Jacobo MD Reason For Visit: ACUTE STEMI Diagnosis Discharge Diagnosis (1) Acute ST elevation myocardial infarction (STEMI): Status: Acute Code(s): I21.3 - ST elevation (STEMI) myocardial infarction of unspecified site (2) 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 disease: Status: Chronic Code(s): I25.10 - Atherosclerotic heart disease of [place] coronary artery without angina pectoris (3) Dyslipidemia: [...] who presented to the emergency department at [facility] on 08/17/2023 with chest pain that started [...] 227. He was taken emergently to the [facility] and this revealed in-stent thrombosis in the [...] Laboratory: Laboratory Results - last 24 hr 05/08/24 16:00: Activated Clotting Time 189 H 08/17/23 [...] not ordered:: Drug Interaction Done w/ Acute TX measure.: Yes Documented LVEF (%): 65 Ischemic [...] Self Care Charges/Coding Visit Charges Inpatient E&M: 16512 Disch Hosp >30min 08/19/23 1129 <Electronically signed by Dorene Rodriguez DO> Cosigner Signature (if applicable): CC: Dr. David Jacobo MD; Dr. Dorene Rodriguez DO; Dr. Cisco Lincoln MD~ Signed [facility] Work Phone: Evaluation + Plan note No data available for this section [facility] Evaluation noteNo assessment information available [facility] Work Phone: Evaluation note* Diagnosis Onset Date Resolution Status Angina pectoris acute Atherosclerotic heart diseas e of [place] coronary artery without angina pectoris acute Essential hypertension acute HLD (hyperlipidemia) acute Myalgia acute Presence of stent in coronary artery November, acute [facility] Work Phone: Evaluation note* Diagnosis Onset Date Resolution Status Atherosclerotic heart diseas e of [place] coronary artery without angina pectoris chronic Essential hypertension chron ic HLD (hyperlipidemia) chronic [facility] Work Phone: Evaluation note* Diagnosis Onset Date Resolution Status Breast mass, right acute [facility] Work Phone: Evaluation note* Diagnosis Acute cough- Primary Sorethroat Acute pharyngitis documented in this encounter [facility] Author Eleno Quijano [facility] August 14, 2023 1:09pm Note Date/Time August 14, 2023 12:45p m [facility] Medical Records Department [address] [place] [address] H&P Exam - Hospitalist 08/14/23 1238 MR#: [id number] Acct: [id number] Name: ALLI KERR Rep #:[id number] : 1960 63 From: Eleno Quijano MD PCP: Dr. David Jacobo MD Status:REG ER Location: ED HPI - General General Date of Admission: 08/14/23 Date of Service: 08/14/23 Chief Complaint: Ear ache and sore throat HPI Narrative ALLI KERR, is a 63 M who presents [...] right breast hematoma from trauma at work [facility] Medical History Abnormal stress test Angina pectoris Atherosclerotic heart disease of [place] coronary artery without angina pectoris Breast mass, [...] 89.7 H, Lymph % (Auto) 5.8 L, [place] % (Auto) 4.0, Eos % (Auto) 0.0, [...] 16 minutes. Charges/Coding Visit Charges Inpatient E&M: 60896 Init Hosp L2 Procedures Hospitalists Procedures: 79380 Advncd Care Plan 30 Min 08/14/23 1309 <Electronically signed by Eleno Quijano MD> Cosigner Signature (if applicable): CC: Dr. Eleno Quijano MD; Dr. David Jacobo MD~ Signed [facility] Work Phone: Hospital Discharge instructions No data available for this section [facility] Progress note No data available for this section [facility] Reason for referral (narrative)No reason for referral [facility] Work Phone: Chief Complaint and Reason for Visit Chief Complaint 3 M FU PAIN- COPY PCP Reason for Visit Atherosclerotic hear t disease of [place] coronary artery without angina pectoris Essential hypertension Myalgia Presence of stent in coronary artery Chief Complaint PAIN- COPY PCP EORDERS Chief Complaint PAIN- COPY PCP EORDERS 1 Y FU ANGIA PECTORIS ANGIA PECTORIS Reason for Visit Angina pectoris Atherosclerotic heart disease of [place] coronary artery without angina pectoris Essential hypertension HLD (hyperlipidemia) Myalgia Presence of stent in coronary artery Chief Complaint PAIN- COPY PCP EORDERS 1 Y FU ANGIA 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 CAD, STENT IN CORONARY ARTERY, ABN STRESS, CP, SOB CAD, STENT IN CORONARY ARTERY, ABN STRESS, CP, SOB Reason for Visit Angina pectoris Atherosclerotic heart disease of [place] coronary artery without angina pectoris Essential hypertension HLD (hyperlipidemia) Myalgia Presence of stent in coronary artery Chief Complaint 6 M FU INT LAB Reason for Visit Atherosclerotic hear t disease of [place] coronary artery without angina pectoris Essential hypertension HLD (hyperlipidemia) Chief Complaint 6 M FU INT LAB Dizziness and giddiness Reason for Visit Atherosclerotic hear t disease of [place] coronary artery without angina pectoris Essential hypertension [...] :13pm Presence of stent in coronary artery Oct 2:13pm Chest pain November 02, 2024 2:13 pm Dyslipidemia November 02, 2024 2:13 pm Chief Complaint Admit Date 6 M FU November 02, 2024 2:13 pm CHEST PAIN December 06, 2024 6: 38am elbow swelling December 10, 2024 7:57am Reason for Visit Admit Date Essential hypertension November 02, 2024 2 :13pm Presence of stent in coronary artery Oct 2:13pm Chest pain November 02, 2024 2:13 pm Dyslipidemia November 02, 2024 2:13 pm Chief Complaint Admit Date 6 M FU November 02, 2024 2:13 pm CHEST PAIN December 06, 2024 6: 38am elbow swelling December 10, 2024 7:57am CHEST PAIN December 11, 2024 3:53pm Amb Documentation December 11, 2024 4:07pm Advance Directives No Advanced Directives Records Found Advance Directive Response Recorded Date/ Time Living Will No May 29 11:29am Power of Criminal Research Specialist No May 29, 2021 11:29am Advance Directive Response Recorded Date/ Time Advance Directives No December 7:41am Living Will No December 29, 2021 7:41am Power of Criminal Research Specialist No December 7:41am Advance Directive Response Recorded Date/ Time Advance Directives No December 6:41am Living Will No December 29, 2021 6:41am Power of Criminal Research Specialist No December 6:41am Advance Directive Response Recorded Date/ Time Name of Medical Power of Criminal Research Specialist August 14, 2023 11:32am Advance Directives No December 7:41am Living Will Yes August 14, 2023 11 :32am Power of Criminal Research Specialist Yes August 14, 2023 11:32am Advance Directive Response Recorded Date/ Time Name of Medical Power of Criminal Research Specialist August 14, 2023 2:53pm Advance Directives No December 7:41am Living Will No August 14, 2023 2: 53pm Power of Criminal Research Specialist No August 14, 2023 2:53pm Advance Directive Response Recorded Date/ Time Name of Medical Power of Criminal Research Specialist August 14, 2023 2:53pm Advance Directives No December 7:41am Living Will No August 17, 2023 3: 54pm Power of Criminal Research Specialist No August 17, 2023 3:54pm Advance Directive Response Recorded Date/ Time Name of Medical Power of Criminal Research Specialist August 14, 2023 2:53pm Advance Directives No December 7:41am Living Will No August 17, 2023 4: 55pm Power of Criminal Research Specialist No August 17, 2023 4:55pm Advance Directive Response Recorded Date/ Time Advance Directives No December 7:41am Advance Directive Response Recorded Date/ Time Do you have a Healthcare Power of Criminal Research Specialist? No December 10, 2024 8:03am Advance Directives No December 7:41am Summary Purpose [...] Provider, Referring P rovider Active Tanner Granger NP, [employer]MENT [employer] Attending Provider Active Team Status: Inactive Member Role Status Dates Dr. David Jacobo MD Primary Care Provider Active Tanner Granger NP, [employer]MENT [employer] Attending Provider, Referring Pro vider Active Team [...] MD Admit Provider, Other Provider Active Dr. aSv Abrams MD Attending Provider Active Team Status: [...] Dr. Dorene Rodriguez DO Attending Provider Active Coupon Clerk Relationship Specialty Start Date End Date David Jacobo MD PCP - [facility] Medicine 12/31/15 Coupon Clerk Relationship Specialty Start Date End Date David Jacobo MD PCP - [facility] 12/31/15 Team Status: Active Member [...] 2024 End: November 02, 2024 Vi Prieto NP, DEPARTMENT [employer] Attending Provider Active Start: November 02, 2024 End: November 02, 2024 Team Status: Active Member Role/Relationship Status Dates Dr. David Jacobo MD Primary Care Provider Active Team Status: Inactive Member Role/Relationship Status Dates Dr. David Jacobo MD Primary Care Provider Active Start: November 02, 2024 End: November 02, 2024 Dr. David Jacobo MD Referring Provider Active St art: November 02, 2024 End: November 02, 2024 Vi Prieto NP, [employer] Attending Provider Active Start: November 02, 2024 End: November 02, 2024 Team Status: Active Member Role/Relationship Status Dates Dr. David Jacobo MD Primary Care Provider Active Start: December 06, 2024 Vi Prieto [employer], [employer] Attending Provider Active Start: December 06, 2024 Vi Prieto [employer], DE[employer] Referring Provider Active Start: December 06, 2024 Team Status: Inactive Member Role/Relationship Status Dates Dr. David Jacobo MD Primary Care Provider Active Start: December 10, 2024 End: December 10, 2024 Dr. David Myers DO Emergency Provider Active Start: December 10, 2024 End: December 10, 2024 Team Status: Inactive Member Role/Relationship Status Dates Dr. David Jacobo MD Primary Care Provider Active Start: December 06, 2024 End: December 06, 2024 Vi Prieto [employer], DE[employer] Attending Provider Active Start: December 06, 2024 End: December 06, 2024 Vi Prieto [employer], DEPARTMENT [employer] Referring Provider Active Start: December 06, 2024 End: December 06, 2024 Team Status: Active Member Role/Relationship Status Dates Dr. David Jacobo MD Primary Care Provider Active Start: December 11, 2024 Vi Prieto [employer], DEPARTMENT [employer] Referring Provider Active Start: December 11, 2024 Vi Prieto [employer]PARTMENT [employer], DEPARTMENT [employer] Other Provider Active Sta rt: December 11, 2024 Dr. Sav Abrams MD Attending Provider Active Start: December 11, 2024 Team Status: Active Member Role/Relationship Status Dates Dr. David Jacobo MD Primary Care Provider Active Start: December 11, 2024 Vi Prieto [employer], DEPARTMENT [employer] Attending Provider Active Start: December 11, 2024 (unrecognized sect ion and content) No Status Records FoundNo Status Records FoundNo Status Records Found INFORMATION SOURCE (unrecogn ized section and content) DATE CREATED AUTHOR 01/25/2023 [facility] DATE CREATED AUTHOR AUTHOR'S ORGANIZ ATION 12/14/2023 [facility] DATE CREATED AUTHOR AUTHOR'S ORGANIZ ATION 01/28/2025 [facility] Source Comments (unrecognize d section and content) In the event this informatio n is protected by the Federal Confidentiality of Alcohol and Drug Abuse Patient Records regulations: The Federal rules restrict any use of the information to criminally investigate or prosecute any alcohol or drug abuse patient.[facility] Center[facility] the event this information is protected by the Federal Confidentiality of Alcohol and Drug Abuse Patient Records regulations: The Federal rules restrict any use of the information to criminally investigate or prosecute any alcohol or drug abuse patient.[facility] Reason for Visit (unrecogniz ed section and [...] BE BASED ON THE PRIMARY CLINICAL RECORDS. [facility] [employer] [facility]. provides no warranty or guarantee of the accuracy or completeness of information in this document.
--- NOTE | 2025-01-30 09:29 | CL.D_ITS ---
Patient Name: ALLI JEFF Study Date: 01/30/2025 Performing: Sav Abrams MD Ht: 70 inches 177.8 cm : 1960 Wt: 189.99 lbs 86.18 kg Age: 64 Gender: male BSA: 2.04 PROCEDURE(S) PERFORMED DC02-(68197)LHC/COR CLINICAL PROFILE AND INDICATIONS Indications: Stable Known CAD Heart Failure: None Stress/Imaging Stress Test w/SPECT MPI: Yes Result: Positive Intermediate RiskStress Test with SPECT MPI: Positive Intermediate Risk CAD Presentations: Symptom unlikely to be ischemic. CONCLUSIONS 50% prox OM1 Stents to Mid RCA and Mid R{DA patent RECOMMENDATIONS Medical therapy Risk factor modification DESCRIPTION OF PROCEDURE The patient arrived to the procedure lab. The risks and benefits of the procedure as well as a full description of our services here and current unavailability of surgical backup were fully explained to the patient and/or their significant other prior to the catheterization. The Timeout was completed, verifying the correct patient and procedure. The patient's procedural site was prepped and draped in the usual fashion. Local anesthetic was given subcutaneously to right radial region with Lidocaine 2%. Using a modified Seldinger technique, arterial access was obtained via the right radial artery, a 6Fr sheath was inserted. Left Coronary Artery selective angiography was performed in multiple views using a 5 Fr. 4.0 An[place]onda catheter. Right Coronary Artery selective angiography was then performed in multiple views using a 5 Fr. 4.0 [place]onda catheter.The arterial sheath was pulled and a TR Band was applied for hemostasis. 11cc air CORONARY ANGIOGRAPHY LEFT ANTERIOR DESCENDING ARTERY: LAD: Tubular 50% Ostial lesion in LAD Tubular 50% Proximal lesion in LAD OM 1: Tubular 50% Ostial lesion in MARG1 OM 2: Tubular 50% Ostial lesion in MARG1 RAMUS: Luminal Irregularities 20% Proximal lesion in Ramus RIGHT CORONARY ARTERY: RCA: Eccentric 50% Distal lesion in RCA Tubular 30% Proximal lesion in RCA COMPLICATIONS No Complications PROCEDURE MEDICATIONS Fentanyl 50 mcg IV Versed 1 mg IV Oxygen: 2 L/min via nasal cannula Heparin given IA 01/30/2025 09:01:19 Verapamil 2.5mg, Ntg 200mcgs, 2000 units of Heparin given IA 01/30/2025 09:01:19 SUMMARY OF HEMODYNAMIC DATA Time AIR REST ECG 07:49:23 AO 130/72 (94) SA 09:12:54 Signed By Sav Abrams MD On 01/30/2025 09:28:09 Sav Abrams MD
== END 2025-01-30 10:50 | disposition home or self-care (01) ==
PROVIDERS: Nurse Practitioner Gerontology; PCP Family Medicine; Referring Provider Internal Medicine Cardiovascular Disease; Visit Provider Internal Medicine Cardiovascular Disease
DX: I25.10 Atherosclerotic heart disease of native coronary artery without angina pectoris (principal); E78.5 Hyperlipidemia, unspecified; I10 Essential (primary) hypertension; I25.2 Old myocardial infarction; Z87.891 Personal history of nicotine dependence; Z95.5 Presence of coronary angioplasty implant and graft; Z95.1 Presence of aortocoronary bypass graft
CPT/HCPCS: 36415; 71046; 80048; 85025; 93454; 99152; 99153; C1894; Q9967; C1769